=== PATIENT | male | born 1935 | race Caucasian/White ===

== ENCOUNTER 2019-06-10 07:33 | Emergency (ER) | payer BC, MEDICARE, OTHER ==
[~2019-06-10] VITALS: Ht 177.8 cm; Wt 75.0 kg
[2019-06-10] MEDS ORDERED: MELO15TA28 (07:42)
[2019-06-10] MEDS ORDERED: TRAM50TA2 (07:42)
[2019-06-10] MEDS ORDERED: LEVE1INJ5 (07:42)
[2019-06-10] MEDS ORDERED: OMEP-218 (07:42)
[2019-06-10] MEDS ORDERED: LOSA100T50 (07:42)
[2019-06-10] MEDS ORDERED: METF10004 (07:42)
[2019-06-10] MEDS ORDERED: PRAV20TA2 (07:42)
[2019-06-10] MEDS ORDERED: MORPHINE 2 MG/ML 1ML VIAL (J2270) As Ordered ONE (08:26)
[2019-06-10] MEDS ORDERED: ONDANSETRON 4MG/2ML VIAL (J2405) As Ordered ONE (08:26)
[2019-06-10 08:27] LABS: BASO % 0.5 % (0.0-1.0); EOS # 0.2 10^3/uL (0.0-0.5); HEMATOCRIT 34.9 % (42.0-52.0); HEMOGLOBIN 11.2 g/dl (13.5-17.5); LYMPH # 1.3 10^3/uL (1.5-5.0); LYMPH % 15.1 % (24.0-44.0); MEAN CORPUSCULAR HEMOGLOBIN 30.1 pg (27.0-33.0); MEAN CORPUSCULAR HGB CONC 32.1 g/dl (32.0-36.5); MEAN CORPUSCULAR VOLUME 93.8 fl (80.0-96.0); MONO # 0.4 10^3/uL (0.0-0.8); MONO % 4.9 % (0.0-5.0); NEUTROPHILS # 6.6 10^3/uL (1.5-8.5); NEUTROPHILS % 77.4 % (36.0-66.0); PLATELET COUNT, AUTOMATED 319 10^3/uL (150-450); RED BLOOD COUNT 3.72 10^6/uL (4.30-6.10); WHITE BLOOD COUNT 8.5 10^3/uL (4.0-10.0)
[2019-06-10] MEDS ORDERED: ONDANSETRON 4MG/2ML VIAL (J2405) IV ONE (08:30)
[2019-06-10] MEDS: MORPHINE 2 MG/ML 1ML VIAL (J2270) IV PRN ×2 (08:31→08:54)
[2019-06-10 08:38] LABS: INR 1.19; PROTHROMBIN TIME 14.8 SECONDS (11.8-14.0)
[2019-06-10 08:39] LABS: PARTIAL THROMBOPLASTIN TIME 30.2 SECONDS (25.0-38.4)
--- NOTE | 2019-06-10 08:40 | REP ---
Chest x-ray: Two views. Comparison study: March 01, 2007. Findings: The lungs are well inflated and clear. Pleural angles are sharp. Heart size is normal. There are degenerative changes in the thoracic spine and in the shoulders. Pulmonary vasculature is not increased. No infiltrate is seen. Impression: No active disease. Electronically Signed by Edmund Payne MD 06/10/2019 08:30 A
[2019-06-10] MEDS ORDERED: ISOVUE-370 76% 100ML VIAL (Q9967) As Ordered ONE (08:44)
[2019-06-10 08:46] LABS: BILIRUBIN,DIRECT 0.3 MG/DL (0.0-0.2); BILIRUBIN,TOTAL 0.7 MG/DL (0.2-1.0); TOTAL PROTEIN 7.4 GM/DL (6.4-8.2)
[2019-06-10 08:47] LABS: ALBUMIN 3.3 GM/DL (3.2-5.2)
--- NOTE | 2019-06-10 09:01 | REP ---
Lumbar spine series: Five views. History: Back pain with numbness bilateral legs. Findings: Lumbar vertebral body heights are preserved. There is ill defined radiolucency in the anterior margin of the L3 vertebral body on the lateral radiograph. This is of uncertain significance. Focal collapse versus a destructive lesion. Vertebral bodies are otherwise intact. There is degenerative disc disease throughout the lumbar spine. Osteoarthritic facet hypertrophy and sclerosis present bilaterally particularly along the right side of the lumbar spine. There is a levoconvex rotoscoliotic curve. No other bony destructive lesion is appreciated. There are clips in the central abdomen. No malalignment is seen. Impression: Scoliosis and degenerative spondylosis changes. Question bony destructive lesion in the anterior superior margin of the L3 vertebral body. Consider CT scanning or MRI scanning. Electronically Signed by Edmund Payne MD 06/10/2019 12:37 P
[2019-06-10] MEDS ORDERED: LIDOCAINE 2% 5ML JELLY UROJET TOP ONE (09:30)
--- NOTE | 2019-06-10 09:37 | REP ---
CT angiogram abdomen and pelvis with IV contrast: History: Hypertension, severe back pain, rule out dissection. CT contrast dose: 100 mL of intravenous Isovue [address] study is from March 22, 2007. CT contrast dose: 100 mL of intravenous Isovue 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 The lung bases are free of infiltrate. There is minimal linear fibrosis in the right lower lobe. No pleural effusion. There are granulomatous calcifications in the spleen. The heart is enlarged. There is a 15 mm nodule in the right adrenal gland which was only very slightly larger than on the 2007 study consistent with a small benign adrenal adenoma. No other adrenal lesion is seen. No abnormality is noted in the gallbladder. No pancreatic mass or free fluid is seen. The kidneys enhance symmetrically are morphologically intact. The visualized thoracic and abdominal aorta are normal in caliber, somewhat tortuous, and show atherosclerotic calcification. There is no evidence of aneurysm or dissection. Renal arteries, inferior mesenteric, superior mesenteric and celiac axes are patent. No acute vascular abnormality is appreciated. The common and external iliac arteries and internal iliac arteries are patent bilaterally. There is rather marked urinary bladder distension consistent with bladder outlet obstruction. The urinary bladder fills and bulges the pelvis up above the level of the umbilicus. This is not new but is more prominent than on the 2007 study. The prostate is markedly enlarged. This is also more prominent. There is a bladder diverticulum and there is some trabeculation of the bladder wall. No bladder mass lesion is visible. The appendix is surgically absent. Small and large bowel loops are unremarkable in the abdomen and pelvis. On bone window settings, there is a recent healing partial wedge compression fracture deformity at the L3 vertebral body. This is responsible for the radiographic findings on plain x-ray. There is a vacuum phenomenon indicating degenerative disc disease at the L2-3 disc level. There are Schmorl's nodes on both sides of the L2-3 disc and there is healing sclerosis. There is partial collapse of the right side of the superior endplate of L3 with approximately 40% M loss of vertebral body heights anteriorly and on the right side. There is a levoconvex curve. Axial and sagittal images at L2-3 demonstrate severe central canal stenosis at this level due to a combination of diffuse disc bulging, posterior osteophytic ridging, ligamentum flavum and facet hypertrophy and developmentally short pedicles. There is also severe central canal stenosis due to the same factors at L3-4 and L4-5. These changes are more pronounced than on the prior CT study. No other bony destructive lesion is seen. Impression: No acute vascular abnormality. There is bladder outlet obstruction with marked distension of the urinary bladder. This appears to be a chronic finding with marked prostate enlargement. There is a healing compression fracture deformity involving the superior endplate of L3 most prominent on the right side. This is responsible for the radiographic findings. There is severe degenerative central canal stenosis evident at L2-3, L3-4, and L4-5 in the lumbar spine. Electronically Signed by Edmund Payne MD 06/10/2019 12:40 P
[2019-06-10] MEDS ORDERED: MORPHINE 2 MG/ML 1ML VIAL (J2270) IV PRN (11:30)
[2019-06-10] MEDS ORDERED: NS 1,000 ML IV ONE (11:45)
--- NOTE | 2019-06-10 11:59 | REP ---
MRI lumbar spine without contrast: History: Back pain times 3 weeks. Progressive. New bilateral leg numbness. Comparison radiographs June 10, [address] images June 10, 2019. Technique: Sagittal and axial T1 and T2-weighted scans are acquired in the usual fashion with and without fat saturation. Sequences include spin echo, turbo spin-echo, and STIR imaging sequences. MRI findings: There is a mild levoconvex curvature in the lumbar spine. No extra vertebral abnormality is observed. Alignment is otherwise normal. There is abnormal signal intensity in the L2-3 disc characterized by low T1 and bright or high T2 signal intensity. There are one or two foci of low T1 low T2 signal intensity in the T2 hyperintense disc correlating with small vacuum phenomenon seen on CT in this location. The end plates on either side of the L2-3 disc are somewhat indistinct. There are Schmorl's nodes with abnormal signal intensity on both sides of the endplate. There is partial collapse of the L3 vertebral body as seen on the radiographs and the CT study. Considerable marrow edema is seen throughout much of the L3 and L2 vertebral bodies and the findings are compatible with acute diskitis. No paravertebral soft-tissue mass or fluid collection is seen. There is however a large left ventral epidural fluid collection extending back and cephalad from the disc margin. This produces considerable cauda equina compression. This epidural fluid collection measures 2.3 cm craniocaudal by 1.1 cm anterior to posterior by 1.5 cm right to left dimension. There is severe central canal stenosis at the level of the L3-4 disc and at L2 extending up to the level of the L2 pedicles. There is a central focal disc protrusion at L1-2 which extends caudally and cranially. There is mild cauda equina compression from this disc protrusion. At L3-4, there is severe central canal stenosis due to a combination of posterior disc bulging, discogenic osteophyte formation, facet hypertrophy, and ligamentum flavum hypertrophy. The CSF signal intensity is completely effaced from the thecal sac at L3-4. There is moderate right-sided foraminal narrowing and mild left-sided foraminal narrowing due to disc bulging and facet hypertrophy at the 3-4 level as well. At L4-5, there is severe central canal stenosis also noted due to these same factors although the canal narrowing is a little less prominent. Advanced osteoarthritic facet disease is present bilaterally along with ligamentum flavum hypertrophy. There is mild bilateral foraminal narrowing at L4-5, left more so than right. At L5-S1, there is facet hypertrophy bilaterally. No spinal stenosis or foraminal narrowing is seen. No disc protrusion. Impression: 1. Findings consistent with acute infectious diskitis at L2-3 with partial collapse of the L3 vertebral body and considerable reactive marrow change. There is evidence of an epidural fluid collection along the ventral margin of the cord just to the left of midline at L2 and at the L2-3 disc level producing considerable cauda equina compression. This is consistent with an epidural abscess. 2. There is also a moderate sized central focal disc protrusion at L1-2 compressing the thecal sac. This disc protrusion extends cranially and caudally as well. 3. There is severe degenerative multifactorial central canal stenosis at L3-4 and to a slightly lesser extent at L4-5. There is bilateral foraminal narrowing at these two levels. Post gadolinium enhanced MR imaging may provide additional information. Electronically Signed by Edmund Payne MD 06/10/2019 12:51 P
[2019-06-10 12:00] LABS: C REACTIVE PROTEIN QUANTITATIV 2.06 MG/DL (0.00-0.30)
[2019-06-10] MEDS ORDERED: PIPERACILLIN/TAZOBACTAM SOD 4.5 GM in D5W MINI-BAG PLUS 50 ML IV ONE (12:45)
[2019-06-10] MEDS ORDERED: VANCOMYCIN HCL 1,000 MG, VIAL MATE ADAPTER 1 EACH in D5W 250 ML IV ONE (12:45)
[2019-06-10 13:34] VITALS: BP 192/95
== END 2019-06-10 13:43 | disposition short-term general hospital (02) ==
LOC: M ED 07:33
DX: G06.2 Extradural and subdural abscess, unspecified (principal); G83.4 Cauda equina syndrome; M46.40 Discitis, unspecified, site unspecified; E11.9 Type 2 diabetes mellitus without complications; I10 Essential (primary) hypertension; E78.9 Disorder of lipoprotein metabolism, unspecified; Z79.899 Other long term (current) drug therapy; Z79.4 Long term (current) use of insulin; Z87.891 Personal history of nicotine dependence
CPT/HCPCS: 51701; 71046; 72110; 72148; 74174; 80047; 80076; 83690; 85025; 85610; 85652; 85730; 86140; 87040; 93041; 96374; 96375; 96376; 99285; J2270; J2405; J2543; J3370; Q9967

== ENCOUNTER → 2019-06-22 | Outpatient (REF) | payer MEDICARE ==
[~2019-06-22] MED LIST: LEVE1INJ5; LOSA100T50; MELO15TA28; METF10004; OMEP-218; PRAV20TA2; TRAM50TA2
[2019-06-22 11:54] LABS: BASO % 0.3 % (0.0-1.0); EOS # 0.1 10^3/uL (0.0-0.5); EOS % 0.7 % (0.0-3.0); HEMATOCRIT 24.4 % (42.0-52.0); LYMPH # 1.1 10^3/uL (1.5-5.0); LYMPH % 11.7 % (24.0-44.0); MEAN CORPUSCULAR HEMOGLOBIN 30.2 pg (27.0-33.0); MEAN CORPUSCULAR HGB CONC 32.8 g/dl (32.0-36.5); MEAN CORPUSCULAR VOLUME 92.1 fl (80.0-96.0); MONO # 0.5 10^3/uL (0.0-0.8); MONO % 5.1 % (0.0-5.0); NEUTROPHILS # 7.9 10^3/uL (1.5-8.5); NEUTROPHILS % 81.7 % (36.0-66.0); PLATELET COUNT, AUTOMATED 404 10^3/uL (150-450); RED BLOOD COUNT 2.65 10^6/uL (4.30-6.10); WHITE BLOOD COUNT 9.7 10^3/uL (4.0-10.0)
[2019-06-22 12:21] LABS: ALBUMIN 2.5 GM/DL (3.2-5.2); ALT/SGPT 20 U/L (12-78); BILIRUBIN,TOTAL 0.4 MG/DL (0.2-1.0); BLOOD UREA NITROGEN 14 MG/DL (7-18); C REACTIVE PROTEIN QUANTITATIV 6.73 MG/DL (0.00-0.30); CALCIUM LEVEL 8.7 MG/DL (8.8-10.2); CARBON DIOXIDE LEVEL 26 MEQ/L (21-32); CHLORIDE LEVEL 105 MEQ/L (98-107); GLOMERULAR FILTRATION RATE > 60.0 (>35); GLUCOSE, FASTING 122 MG/DL (70-100); POTASSIUM SERUM 4.6 MEQ/L (3.5-5.1); SODIUM LEVEL 138 MEQ/L (136-145); TOTAL PROTEIN 6.2 GM/DL (6.4-8.2)
[2019-06-22 12:23] LABS: ERYTHROCYTE SEDIMENTATION RATE 58 mm/hr (0-20)
== END ==
LOC: M LAB REF 11:33
PROVIDERS: ATTEND Internal Medicine Infectious Disease
DX: G06.2 Extradural and subdural abscess, unspecified (principal); M46.46 Discitis, unspecified, lumbar region; Z79.2 Long term (current) use of antibiotics

== ENCOUNTER → 2019-07-19 | Outpatient (REF) | payer MEDICARE | LOC: M LAB REF 16:18 | PROVIDERS: ATTEND Internal Medicine Infectious Disease | DX: G06.2 Extradural and subdural abscess, unspecified (principal); N18.9 Chronic kidney disease, unspecified; Z51.81 Encounter for therapeutic drug level monitoring; E11.22 Type 2 diabetes mellitus with diabetic chronic kidney disease; M46.46 Discitis, unspecified, lumbar region; Z79.2 Long term (current) use of antibiotics ==

== ENCOUNTER → 2019-07-21 | Outpatient (CLI) | payer MEDICARE ==
--- NOTE | 2019-07-21 10:16 | REP ---
MRI lumbar spine without and with IV contrast: History: Epidural abscess. Comparison study June 10, 2019. The patient has undergone laminectomy and operative therapy. Technique: Sagittal and axial T1 and T2-weighted scans are acquired in the usual fashion with and without fat saturation. Sequences include spin echo, turbo spin-echo, and STIR imaging sequences. 14 ml of intravenous ProHance is administered. MRI findings: Extensive signal intensity abnormality persists throughout the L2 and L3 vertebral body characterized by low T1 and high T2-weighted signal intensity with postcontrast enhancement throughout the L2 and L3 vertebral bodies. On the 06/1991 the signal intensity nonenhancing fluid is seen in the L2-3 intervertebral disc space and extending slightly to the left paravertebral region. There is some contrast enhancement around this left paravertebral disc bulging. The left ventral epidural collection is no longer visible. The spinous processes have been resected at the L2-L3 levels with laminectomy changes centrally in the dorsal extradural soft tissues about this level. There is an irregular dorsal extra spinal fluid collection with enhancing margins at the level of the laminectomy site. There is still considerable central canal stenosis at the L2-3 disc level due to some left posterior retropulsion and left ventral enhancing epidural thickening along with residual facet hypertrophy at the L2-3 disc level. Extending upward from this level, there is enhancing dural thickening along the left ventral margin of the canal where the prior study showed the epidural abscess collection. This area measures 16 x 8 mm in right to left by anteroposterior span. It extends from the mid L3 through the top endplate of L2, 46 mm craniocaudal. This enhances homogeneously on postcontrast images implying dural thickening rather than a epidural collection although this is difficult to state with confidence. It is low in T2 signal and intermediate in T1 signal intensity. Postcontrast images demonstrate paravertebral enhancing granulation tissue about the L2 and L3 vertebral bodies and in the L2-3 a neural foramina bilaterally. At L1-2, there is no high-grade central canal stenosis. At the L3-4 there is an moderate central canal stenosis due to diffuse disc bulging and developmentally short pedicles and ligamentum flavum and facet hypertrophy at the bottom edge of the laminectomy site. At L4-5, there is severe central canal stenosis due to diffuse disc bulging, facet hypertrophy and ligamentum flavum hypertrophy. This is unchanged. At the L5-S1 level there is no change from the prior study with facet hypertrophy and minimal disc bulging. 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 A fairly large area of epidural thickening and enhancement persists were the epidural abscess was. Significant thecal sac compression is seen at this level. In addition there is severe central canal stenosis at L4-5 on a degenerative and developmental basis. Electronically Signed by Edmund Payne MD 07/21/2019 06:34 P
== END ==
LOC: M PLARAD 07:30
PROVIDERS: ATTEND Physician Assistant
DX: M51.26 Other intervertebral disc displacement, lumbar region (principal); M48.061 Spinal stenosis, lumbar region without neurogenic claudication; M46.96 Unspecified inflammatory spondylopathy, lumbar region; G06.2 Extradural and subdural abscess, unspecified

== ENCOUNTER → 2019-08-24 | Outpatient (REF) | payer MEDICARE ==
[~2019-08-24] MED LIST changes: +FLOM0.4C39 PO; +IRON325T2 PO
[2019-08-24 12:45] LABS: HEMATOCRIT 32.3 % (42.0-52.0); HEMOGLOBIN 10.3 g/dl (13.5-17.5); MEAN CORPUSCULAR HEMOGLOBIN 30.2 pg (27.0-33.0); MEAN CORPUSCULAR HGB CONC 31.9 g/dl (32.0-36.5); MEAN CORPUSCULAR VOLUME 94.7 fl (80.0-96.0); PLATELET COUNT, AUTOMATED 240 10^3/uL (150-450); RED BLOOD COUNT 3.41 10^6/uL (4.30-6.10); WHITE BLOOD COUNT 7.4 10^3/uL (4.0-10.0)
[2019-08-24 12:53] LABS: ALBUMIN 3.3 GM/DL (3.2-5.2); ALT/SGPT 18 U/L (12-78); BILIRUBIN,TOTAL 0.3 MG/DL (0.2-1.0); BLOOD UREA NITROGEN 26 MG/DL (7-18); CALCIUM LEVEL 8.7 MG/DL (8.8-10.2); CARBON DIOXIDE LEVEL 27 MEQ/L (21-32); CHLORIDE LEVEL 108 MEQ/L (98-107); CREATININE FOR GFR 1.17 MG/DL (0.70-1.30); FERRITIN 53 NG/ML (26-388); GLOMERULAR FILTRATION RATE > 60.0 (>35); GLUCOSE, FASTING 161 MG/DL (70-100); IRON (FE) 29 UG/DL (65-175); PERCENT SATURATION 10.8 % (19.7-50.0); POTASSIUM SERUM 5.4 MEQ/L (3.5-5.1); SODIUM LEVEL 139 MEQ/L (136-145); TOTAL IRON BINDING CAPACITY 268 UG/DL (250-450); TOTAL PROTEIN 6.9 GM/DL (6.4-8.2)
== END ==
LOC: M LAB REF 11:53
PROVIDERS: ATTEND Family Medicine
DX: D64.9 Anemia, unspecified (principal); I10 Essential (primary) hypertension

== ENCOUNTER 2019-08-25 06:56 | Emergency (ER) | payer MEDICARE ==
[~2019-08-25] VITALS: Ht 177.8 cm; Wt 72.1 kg
[~2019-08-25 06:56] MED LIST changes: -FLOM0.4C39 PO; -IRON325T2 PO
[2019-08-25] MEDS ORDERED: FLOM0.4C39 PO (07:03)
[2019-08-25] MEDS ORDERED: IRON325T2 PO (07:03)
[2019-08-25] MEDS ORDERED: LIDOCAINE 2% 5ML JELLY UROJET TOP ONE (07:45)
[2019-08-25 09:44] VITALS: BP 153/70
== END 2019-08-25 09:54 | disposition home or self-care (01) ==
LOC: M ED 06:56
DX: T83.091A Other mechanical complication of indwelling urethral catheter, initial encounter (principal); E11.9 Type 2 diabetes mellitus without complications; I10 Essential (primary) hypertension; E78.5 Hyperlipidemia, unspecified; K21.9 Gastro-esophageal reflux disease without esophagitis; Z87.891 Personal history of nicotine dependence; Z79.4 Long term (current) use of insulin; Z79.899 Other long term (current) drug therapy

== ENCOUNTER 2019-10-08 02:25 | Emergency (ER) | payer MEDICARE ==
[~2019-10-08] VITALS: Ht 177.8 cm; Wt 75.1 kg
[~2019-10-08 02:25] MED LIST changes: +FLOM0.4C39 PO; +IRON325T2 PO
[2019-10-08 04:12] VITALS: BP 140/70
== END 2019-10-08 04:15 | disposition home or self-care (01) ==
LOC: M ED 02:25
DX: T83.098A Other mechanical complication of other urinary catheter, initial encounter (principal); E11.9 Type 2 diabetes mellitus without complications; I10 Essential (primary) hypertension; E78.5 Hyperlipidemia, unspecified; Z79.84 Long term (current) use of oral hypoglycemic drugs; Z79.899 Other long term (current) drug therapy

== ENCOUNTER 2019-10-17 06:17 | Emergency (ER) | payer MEDICARE ==
[~2019-10-17] VITALS: Ht 177.8 cm; Wt 77.7 kg
[2019-10-17] MEDS ORDERED: KEFL500C17 PO ×2 (07:36→07:40)
[2019-10-17 07:53] VITALS: BP 180/70
== END 2019-10-17 07:53 | disposition home or self-care (01) ==
LOC: M ED 06:17
DX: Z46.6 Encounter for fitting and adjustment of urinary device (principal); T83.098A Other mechanical complication of other urinary catheter, initial encounter; N30.90 Cystitis, unspecified without hematuria; E11.9 Type 2 diabetes mellitus without complications; I10 Essential (primary) hypertension; E78.5 Hyperlipidemia, unspecified; K21.9 Gastro-esophageal reflux disease without esophagitis; Z79.4 Long term (current) use of insulin; Z79.84 Long term (current) use of oral hypoglycemic drugs; Z79.899 Other long term (current) drug therapy

== ENCOUNTER 2019-11-21 09:47 | Inpatient (IN) | payer MEDICARE ==
[~2019-11-21] VITALS: Ht 177.8 cm; Wt 76.2 kg
[~2019-11-21 09:47] MED LIST changes: +KEFL500C17 PO; -LEVE1INJ5; +LEVE1INJ5 SC; -LOSA100T50; +LOSA100T50 PO; -METF10004; +METF10004 PO; -OMEP-218; +OMEP-218 PO; -PRAV20TA2; +PRAV20TA2 PO
[2019-11-21] MEDS ORDERED: ISOVUE-370 76% 100ML VIAL As Ordered ONE (10:39)
--- NOTE | 2019-11-21 11:04 | REP ---
Oral chest x-ray: Single view. History: CVA. Comparison chest x-ray: June 10, 2019. Findings: Monitoring electrodes overlie the chest. Cardiomegaly is observed. Pulmonary vasculature is not increased. Pleural angles are sharp. No infiltrate is seen. Impression: Cardiomegaly. Otherwise no active disease. Electronically Signed by Edmund Payne MD 11/21/2019 10:55 A
[2019-11-21 11:10] LABS: BASO % 0.6 % (0.0-1.0); EOS # 0.3 10^3/uL (0.0-0.5); EOS % 3.7 % (0.0-3.0); HEMATOCRIT 30.8 % (42.0-52.0); HEMOGLOBIN 10.1 g/dl (13.5-17.5); LYMPH # 1.4 10^3/uL (1.5-5.0); LYMPH % 20.3 % (24.0-44.0); MEAN CORPUSCULAR HEMOGLOBIN 30.2 pg (27.0-33.0); MEAN CORPUSCULAR HGB CONC 32.8 g/dl (32.0-36.5); MEAN CORPUSCULAR VOLUME 92.2 fl (80.0-96.0); MONO # 0.4 10^3/uL (0.0-0.8); MONO % 4.9 % (0.0-5.0); NEUTROPHILS % 70.1 % (36.0-66.0); PLATELET COUNT, AUTOMATED 261 10^3/uL (150-450); RED BLOOD COUNT 3.34 10^6/uL (4.30-6.10); WHITE BLOOD COUNT 7.1 10^3/uL (4.0-10.0)
[2019-11-21 11:22] LABS: INR 1.09; PARTIAL THROMBOPLASTIN TIME 27.1 SECONDS (25.0-38.4); PROTHROMBIN TIME 13.8 SECONDS (11.8-14.0)
[2019-11-21 11:34] LABS: CK-MB VALUE MASS 3.3 NG/ML (<3.6); MB/CK RELATIVE INDEX 2.52 (< OR =4); TROPONIN I 0.04 NG/ML (< 0.10)
--- NOTE | 2019-11-21 12:44 | REP ---
CT BRAIN WITHOUT CONTRAST: HISTORY: CVA. No comparison study. CT FINDINGS: There is heavy vascular calcification in the distal internal carotid arteries bilaterally. The bony calvarium is intact. Visualized paranasal sinuses are clear. No intraorbital abnormality is appreciated. There is mild generalized volume loss. There is no evidence of intracranial hemorrhage. Saba/white differentiation pattern is normal above and below the tentorium. No acute infarction is seen. No mass, acute infarction or midline shift is seen. There are mild small vessel changes. IMPRESSION: No evidence of acute infarct, hemorrhage, mass or midline shift. Electronically Signed by Edmund Payne MD 11/21/2019 05:58 P
[2019-11-21] MEDS ORDERED: ATORVASTATIN 20 MG TAB PO ONE (13:30)
[2019-11-21] MEDS ORDERED: ASPIRIN 325 MG TAB PO ONE (13:30)
[2019-11-21] MEDS ORDERED: GLUCOSE 4GM CHEW TABLET PO PRN (13:45)
[2019-11-21] MEDS ORDERED: DEXTROSE 50% 50 ML SYRINGE IV PRN (13:45)
[2019-11-21] MEDS ORDERED: GLUCAGON INJ 1MG VIAL SC PRN (13:45)
--- NOTE | 2019-11-21 13:47 | REP ---
CT ANGIOGRAPHY OF THE CAROTID ARTERIES WITH IV CONTRAST: HISTORY: CVA. CT CONTRAST DOSE: 100 mL of intravenous Isovue [address] FINDINGS: There is mild vascular calcification in the aortic arch. There is no evidence of an aneurysm or dissection. Great vessel origins are unremarkable. Mild vascular calcification is seen in the proximal left subclavian and in the innominate arteries. The common carotid arteries are unremarkable bilaterally. There is moderate calcific plaquing at the bifurcations of the carotid arteries bilaterally. There is approximately 50% narrowing of the distal common carotid artery on the left due to calcific plaquing. The proximal ICA shows less than 50% narrowing on the left. On the right, there is calcific plaquing at the origin of the ICA and there is approximately 75% narrowing of the proximal ICA. Cervical internal carotid artery segments are patent bilaterally. Vertebral arteries are patent bilaterally and right is slightly smaller than the left. IMPRESSION: 75% narrowing in the ICA origin on the right. Less than 50% narrowing of the distal common carotid artery and proximal ICA on the left. Otherwise negative. Electronically Signed by Edmund Payne MD 11/21/2019 05:58 P
[2019-11-21] MEDS: amLODIPine 5 MG TAB PO SCH ×2 (13:54→20:32)
--- NOTE | 2019-11-21 13:57 | REP ---
CT ANGIOGRAPHY OF THE BRAIN WITH IV CONTRAST: HISTORY: Cerebrovascular accident. CT CONTRAST DOSE: 100 mL of intravenous Isovue 370. CT ANGIOGRAPHIC FINDINGS: The distal vertebral arteries are patent bilaterally. Basilar artery is mildly tortuous but widely patent. The superior cerebellar artery is normal and symmetric. The left posterior cerebral artery takes a persistent origin. The posterior cerebral arteries are patent bilaterally. The distal internal carotid arteries are heavily calcified at the level of the carotid siphon bilaterally. There is evidence of atherosclerotic irregularity and narrowing bilaterally. The anterior and middle cerebral arteries are patent. No vessel cutoff is seen. Dural sinuses are patent and unremarkable. IMPRESSION: Persistent origin left posterior cerebral artery. Fairly heavy vascular calcification and atherosclerotic narrowing in the distal internal carotid arteries bilaterally. No arterial occlusion seen. No evidence of chun aneurysm or arteriovenous malformation. Electronically Signed by Edmund Payne MD 11/21/2019 05:58 P
[2019-11-21] MEDS ORDERED: ENOXAPARIN 40MG/0.4ML SYRINGE (J1650 PER 10MG) SC SCH (14:00)
[2019-11-21] MEDS: LABETALOL 100MG/20ML VIAL IV SCH ×2 (15:10→20:33)
[2019-11-21 16:17] VITALS: BP 184/85
--- NOTE | 2019-11-21 16:32 | REP ---
MRI BRAIN WITHOUT CONTRAST: HISTORY: Right wrist drop. Comparison CT study from earlier this date. TECHNIQUE: Axial and sagittal imaging planes are utilized for T1- and T2-weighted scans. Sequences include spin-echo, fast spin echo, FLAIR, and diffusion weighted sequences. MRI FINDINGS: No bony calvarial lesion is seen. There is minimal mucosal thickening in the right maxillary sinus. No intraorbital abnormality is seen. There is no evidence of intracranial hemorrhage. Diffusion weighted scans demonstrates multiple scattered punctate foci of restricted diffusion consistent with acute ischemia in the left temporal lobe and left parietal lobe. No other areas of restricted diffusion are seen. No extra-axial fluid collection, mass, or midline shift is seen. There are some periventricular white matter small vessel changes. Mild generalized volume loss is present. IMPRESSION: Multiple small foci of restricted diffusion indicating acute ischemia in the left temporal and left parietal lobes. No hemorrhage seen. Electronically Signed by Edmund Payne MD 11/21/2019 06:01 P
[2019-11-21] MEDS ORDERED: SLF 3 ML SYR IV PRN (16:45)
[2019-11-21] MEDS: HumaLOG INSULIN (NovoLOG) PER UNIT SC SCH ×2 (17:50→20:32)
--- NOTE | 2019-11-21 18:47 | ECGEPIP ---
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
[2019-11-21 20:00] VITALS: BP 173/81
[2019-11-21] MEDS: APIXABAN 2.5 MG TAB (ELIQUIS) PO SCH (20:32)
[2019-11-21] MEDS: FERROUS SULFATE 325MG TAB PO SCH (20:32)
[2019-11-21] MEDS: LEVEMIR (INSULIN DETEMIR) 1 UNITS/0.01ML SC SCH (20:33)
[2019-11-21] MEDS: SLF 3 ML SYR IV SCH (22:43)
[2019-11-22] VITALS (7 sets, daily range): BP systolic 161–188; BP diastolic 69–86
[2019-11-22] MEDS: LABETALOL 100MG/20ML VIAL IV SCH ×2 (03:58→09:00)
[2019-11-22 04:33] LABS: HEMATOCRIT 30.1 % (42.0-52.0); HEMOGLOBIN 9.9 g/dl (13.5-17.5); MEAN CORPUSCULAR HEMOGLOBIN 30.5 pg (27.0-33.0); MEAN CORPUSCULAR HGB CONC 32.9 g/dl (32.0-36.5); MEAN CORPUSCULAR VOLUME 92.6 fl (80.0-96.0); PLATELET COUNT, AUTOMATED 241 10^3/uL (150-450); RED BLOOD COUNT 3.25 10^6/uL (4.30-6.10); WHITE BLOOD COUNT 7.7 10^3/uL (4.0-10.0)
[2019-11-22 05:04] LABS: ALT/SGPT 19 U/L (12-78); BILIRUBIN,DIRECT 0.2 MG/DL (0.0-0.2); BILIRUBIN,TOTAL 0.5 MG/DL (0.2-1.0); BLOOD UREA NITROGEN 21 MG/DL (7-18); CALCIUM LEVEL 8.3 MG/DL (8.8-10.2); CARBON DIOXIDE LEVEL 26 MEQ/L (21-32); CHLORIDE LEVEL 109 MEQ/L (98-107); CHOLESTEROL LEVEL 125 MG/DL (<200); CHOLESTEROL RISK RATIO 3.787 (<5); CREATININE FOR GFR 1.11 MG/DL (0.70-1.30); GLOMERULAR FILTRATION RATE > 60.0 (>35); GLUCOSE, FASTING 100 MG/DL (70-100); HDL CHOLESTEROL 33 MG/DL (>40); LDL CHOLESTEROL 75 MG/DL (<100); NON-HDL-C 92 MG/DL; SODIUM LEVEL 142 MEQ/L (136-145); TOTAL PROTEIN 6.2 GM/DL (6.4-8.2); TRIGLYCERIDES LEVEL 84 MG/DL (<150)
[2019-11-22] MEDS: SLF 3 ML SYR IV SCH ×3 (05:35→20:53)
[2019-11-22] MEDS: HumaLOG INSULIN (NovoLOG) PER UNIT SC SCH ×4 (07:30→20:52)
[2019-11-22] MEDS ORDERED: ASPIRIN 81 MG CHEW TABLET PO SCH (09:00)
[2019-11-22] MEDS: TAMSULOSIN 0.4 MG CAP PO SCH (10:01)
[2019-11-22] MEDS: LOSARTAN 50MG TABLET PO SCH (10:01)
[2019-11-22] MEDS: OMEPRAZOLE 20 MG CAP PO SCH (10:01)
[2019-11-22] MEDS: amLODIPine 5 MG TAB PO SCH (10:02)
[2019-11-22] MEDS: APIXABAN 2.5 MG TAB (ELIQUIS) PO SCH ×2 (10:02→20:52)
--- NOTE | 2019-11-22 10:15 | HPE ---
DATE OF ADMISSION: 11/21/2019 CHIEF COMPLAINT: Right hand weakness. HISTORY OF PRESENT ILLNESS: This is an 84-year-old male with history of epidural abscess, type 2 diabetes, hyperlipidemia, hypertension, sciatica, and radiculopathy who presents to the emergency room with acute onset of right wrist drop. The patient had surgery due to an epidural abscess in May into June and since being home has been sleeping downstairs on the couch. When he awoke this morning at 5:30 a.m. and the hand could not move and was "like a piece of meat", the patient thought that he may have slept on the wrong side and tried to straighten it out. He was watching movies last night from 11:00 p.m. to about 4:00 a.m. and was normal and went to sleep and woke up around 5:30 this morning. The patient thought that his hand fell asleep. He started massaging it and straightening it out and he went back to sleep. He then called out to his to tell her around 9:30 that it was not getting any better. The said, "You look all right". He otherwise denied any tingling or numbing sensation. He told his , "I think I had a stroke". The said you may have a pinched nerve. They both decided to call Dr. Fisher's office around 9:30 who then prompted him to come to the emergency room (ER) for further evaluation. The patient has been using a crutch to ambulate up and down the stairs at home and uses a cane on his good side which is the left side. He was able to get into his car with using his one crutch without any help or gait disturbance. The did not notice any facial asymmetry. She said that his speech was fluent without any difficulty understanding or any word salad. On arrival, the patient had a CT of the head which was normal. No hemorrhage or acute CVA. Presenting blood pressure was 224/100 with no complaints of headache, changes in vision or gait abnormality. CTA of the neck shows 75% narrowing in the ICA on the right with less than 50% of the distal common carotid artery and proximal ICA on the left, otherwise negative. MRI of the brain as recommended by Dr. Bustamante, neurologist sludge filtration attendant, shows a multiple small foci of restricted diffusion indicating acute ischemia in the left temporal and left parietal lobe without any hemorrhage. The patient's blood pressure improved after a dose of Norvasc and IV labetalol to 184, which is sufficient decrease of 15% from presenting blood pressure. The patient was subsequently admitted for nonhemorrhagic acute left temporal parietal CVA. PAST MEDICAL HISTORY: 1. 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 2. Hypertension. 3. Diabetes. 4. Sciatica. 5. Radiculopathy. 6. Hyperlipidemia. ALLERGIES: No known drug allergies. PAST SURGICAL HISTORY: 1. Lumbar diskectomy. 2. Evacuation of an epidural abscess at [facility]. 3. Right knee surgery. 4. Appendectomy. 5. Two cataract surgeries. HOME MEDICATIONS: - metformin 1 gram twice a day - Prevacid 20 daily - Levemir 8 units at bedtime - ferrous sulfate 325 at bedtime - losartan 100 daily - omeprazole 20 daily - Flomax 0.4 daily SOCIAL HISTORY: The patient denies cigarette or alcohol use. 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 He currently lives with his , a dog, a cat, and a bird. FAMILY HISTORY: Mother at age 67 with CAD and VA; father age 68, was a smoker with COPD. Patient had no siblings. He was an only child. REVIEW OF SYSTEMS: Her HPI, 12 point system otherwise negative. PHYSICAL EXAMINATION: Presenting blood pressure 224/100. Respiratory rate 18. Pulse 64. Temperature 98.2. 99% on room air. Generally, the patient has no facial asymmetry. Able to speak in full sentences. The patient has pupils that are reactive. Speech is fluent. No conversational dyspnea. No jugular venous distention (JVD). No thyromegaly or cervical lymphadenopathy. Moist mucous membranes. Lungs are clear to auscultation. No wheezing, rales or rhonchi. Heart: S1, S2. Irregularly irregular. Abdomen: Soft. Nontender. Nondistended. Positive bowel sounds. Extremities: No cyanosis or clubbing. The patient has a Burt catheter with a leg bag on the right. Post surgical changes in the right knee. Well healed scars. Neurologically, patient has no facial asymmetry. Speech is fluent. Slight pronator drift. On the right, he has dysmetria on ythivd-ky-alxy testing. On the right, motor function right wrist and fingers are 3/5, positive Babinski in the lower extremity. Motor strength of left upper and lower extremity is 5/5. Gait was not tested. LABORATORY DATA: White count 7.1, hemoglobin 10, hematocrit 30, and platelet count 261 with 70% neutrophils. Troponin 0.4. MB fraction 3.3. Total CK 131. INR 1.09. PTT is 27. Sodium 140, potassium 4.5, chloride 105, bicarbonate 22, BUN 25, creatinine 1.2, glucose 125. MRI of the brain with acute left temporal parietal CVA, no hemorrhage seen. CTA of the neck with 75% narrowing in the ICA origin on the right, less than 50% distal common carotid artery and proximal ICA on the left, otherwise negative. CT of the head with no evidence of acute infarct, hemorrhage, mass or midline shift. Chest x-ray 11/21/2019 with cardiomegaly, otherwise no active disease. CT angio of the brain with persistent origin left posterior cerebral artery. Heavy vascular calcification and atherosclerotic narrowing in the distal internal carotid arteries bilaterally. No evidence of chun aneurysm. No arterial occlusion. No arteriovenous malformation. ASSESSMENT AND PLAN: This is an 84-year-old male who presented to the emergency room around 10:00 a.m. with NIH score of 2 with complaints of right sided wrist drop that was noted around 5:30 to 6:00 a.m. this morning. The patient was found to have an acute left temporal parietal CVA and electrocardiogram showed atrial flutter, ventricular rate of 63, with left axis deviation, right bundle branch block. IMPRESSION: 1. Acute left parietal and temporal lobe CVA with right wrist drop. The patient has a new onset of atrial flutter on telemetry. He has been given Eliquis renally dosed twice a day, 2.5 mg. The patient is currently rate controlled. Will permit for permissive hypertension due to presenting blood pressure of 224. The patient's blood pressure should be around 180 to 190. Therefore, labetalol and Norvasc will be held for systolic pressure less than 180. After 24 hours, the patient's blood pressure might be more aggressively decreased to about 120 to 130. Obtain echocardiogram, 2-D echo. Telemetry monitoring. Continue on Lipitor. Apixaban. Check lipid panel in the morning. Control blood pressure over the next 24-48 hours. Deep vein thrombosis (DVT) prophylaxis with compression stockings. Lovenox has been discontinued due to starting Eliquis. 2. Hypertensive urgency with acute CVA. The patient's blood pressure will be decreased by 15%. Presenting systolic pressure of 224 with goal blood pressure about 180 to 190 over the next 24 hours until 10:00 a.m. tomorrow. Then will decrease it to normal over the next 48 hours. 3. Diabetes. The patient is continued on insulin sliding scale, consistent carbohydrate diet and finger sticks before meals and at bedtime. 4. History of epidural abscess and laminectomy. 5. Iron deficiency anemia. No signs of active bleeding. No red blood cell transfusion required. Monitor for symptoms. Check hemoccult stool if patient becomes anemic. 6. Disposition. The patient is to have acute rehabilitation unit (ARU) screen pending report of echo. The patient may be transferred to ARU at any time or discharge home with home physical therapy. 7. Carotid artery disease. Per Dr. Bustamante. Patient's symptoms are on the other side and does not need any emergent referral. Patient may be referred as outpatient to vascular surgery. 8.New onset Atrial Flutter. rate controlled. started on low dose eliquis. most likely cause of pt's new CVA. ASA discontinued due to increased risk of bleeding. MTDD
[2019-11-22] MEDS ORDERED: ELIQ2.5T PO (14:21)
[2019-11-22] MEDS ORDERED: ATOR1TAB21 PO (14:21)
[2019-11-22] MEDS ORDERED: AMLO10TA5 PO (14:21)
[2019-11-22] MEDS ORDERED: amLODIPine 5 MG TAB PO ONE (15:00)
--- NOTE | 2019-11-22 15:42 | IPNPDOC ---
Date Seen The patient was seen on 11/22/19. Progress Note SUBJECTIVE: pt has no new neurological deficits. He says that the right hand has not worsened overnight. Tele: A Flutter rate controlled. pt started on eliquis renally dosed, and despite sbp 170-180mmHg, denies h/a, changes in vision, or chest tightness, sob. OBJECTIVE PHYSICAL EXAMINATION: VITALS: Generally: no facial asymmetry. Able to speak in full sentences. NO expressive or receptive aphasia. gregarious and appropriate. The patient has pupils that are reactive. Speech is fluent. No conversational dyspnea. No jugular venous distention (JVD). No thyromegaly or cervical lymphadenopathy. Moist mucous membranes. Lungs are clear to auscultation. No wheezing, rales or rhonchi. Heart: S1, S2. Irregularly irregular. Abdomen: Soft. Nontender. Nondistended. Positive bowel sounds. Extremities: No cyanosis or clubbing. The patient has a Burt catheter with a leg bag on the right. Post surgical changes in the right knee. Well healed scars. Neurologically, patient has no facial asymmetry. Speech is fluent. Slight pronator drift. On the right, he has dysmetria on cxsdoc-jt-rvic testing. On the right, motor function right wrist and fingers are 3/5, positive Babinski in the lower extremity. Motor strength of left upper and lower extremity is 5/5. Gait was not tested. LABORATORY DATA: pls see below IMAGING STUDIES: MRI of the brain with acute left temporal parietal CVA, no hemorrhage seen. CTA of the neck with 75% narrowing in the ICA origin on the right, less than 50% distal common carotid artery and proximal ICA on the left, otherwise negative. CT of the head with no evidence of acute infarct, hemorrhage, mass or midline shift. Chest x-ray 11/21/2019 with cardiomegaly, otherwise no active disease. CT angio of the brain with persistent origin left posterior cerebral artery. Heavy vascular calcification and atherosclerotic narrowing in the dis medhat internal carotid arteries bilaterally. No evidence of chun aneurysm. No arterial occlusion. No arteriovenous malformation. ASSESSMENT AND PLAN: This is an 84-year-old male who presented to the emergency room around 10:00 a.m. with NIH score of 2 with complaints of right sided wrist drop that was noted around 5:30 to 6:00 a.m. this morning. The patient was found to have an acute left temporal parietal CVA and electrocardiogram showed atrial flutter, ventricular rate of 63, with left axis deviation, right bundle branch block. Acute left parietal and temporal lobe CVA with right wrist drop. The patient has a new onset of atrial flutter on telemetry. He has been given Eliquis renally dosed twice a day, 2.5 mg. The patient is currently rate controlled. Will permit for permissive hypertension due to presenting blood pressure of 224. The patient's blood pressure was kept at 180 to 190mmHg for the first 24hrs. Pt's lisinopril has been restarted. heart rate ranges in 60's, and beta blockade or calcium blockers to be judiciously utilized. Hypertensive urgency with acute CVA. after 24hrs, pt's blood pressure can be decreased to normal over the next 48hrs. resumed on lisinopril. Carotid artery disease. Per Dr. Bustamante. Patient's symptoms are on the other side and does not need any emergent referral. Patient may be referred as outpatient to vascular surgery. New onset Atrial Flutter. rate controlled. started on low dose eliquis. most likely cause of pt's new CVA. ASA discontinued due to increased risk of bleeding. Diabetes. The patient is continued on insulin sliding scale, consistent carbohydrate diet and finger sticks before meals and at bedtime. History of epidural abscess and laminectomy. Iron deficiency anemia. No signs of active bleeding. No red blood cell transfusion required. Monitor for symptoms. Check hemoccult stool if patient becomes anemic. Disposition. awaiting echo report and slow titration of bp meds to achieve goal bp . dc in am if improved. VS, I&O, 24H, [place] Vital Signs/I&O Vital Signs Date Time Temp Pulse Resp B/P (MAP) Pulse Ox O2 Delivery O2 Flow Rate FiO2 11/22/19 12:00 98.2 65 19 165/69 (101) 97 Room Air I&O- Last 24 Hours up to 6 AM 11/22/19 06:00 Intake Total 360 ml Output Total 1000 ml Balance -640 ml Laboratory Data 24H LABS Laboratory Tests 2 11/21/19 17:07: Bedside Glucose (Misc Panel) 166H 11/21/19 20:25: Bedside Glucose (Misc Panel) 141H 11/22/19 03:44: Nucleated Red Blood Cells % (auto) 0.0, Anion Gap 7L, Glomerular Filtration Rate > 60.0, Calcium Level 8.3L, Total Bilirubin 0.5, Direct Bilirubin 0.2, Aspartate Amino Transf (AST/SGOT) 21, Alanine Aminotransferase (ALT/SGPT) 19, Alkaline P hosphatase 122H, Total Protein 6.2L, Albumin 3.0L, Albumin/Globulin Ratio 0.9, Triglycerides Level 84, Total Cholesterol 125, LDL Cholesterol 75, Non-HDL Cholesterol (LDL + VLDL) 92, Total HDL Cholesterol 33L, Cholesterol/HDL Ratio 3.787 11/22/19 11:38: Bedside Glucose (Misc Panel) 181H CBC/BMP Laboratory Tests 11/22/19 03:44 LORENA CARLIN MD November 22, 2019 15:42
[2019-11-22] MEDS: FERROUS SULFATE 325MG TAB PO SCH (20:52)
[2019-11-22] MEDS: LEVEMIR (INSULIN DETEMIR) 1 UNITS/0.01ML SC SCH (20:53)
[2019-11-22] MEDS ORDERED: ATORVASTATIN 20 MG TAB PO SCH (21:00)
[2019-11-23 02:00] VITALS: BP 160/70
[2019-11-23] MEDS: SLF 3 ML SYR IV SCH (05:01)
[2019-11-23 06:00] VITALS: BP 155/70
[2019-11-23 08:07] LABS: HEMATOCRIT 31.6 % (42.0-52.0); HEMOGLOBIN 10.6 g/dl (13.5-17.5); MEAN CORPUSCULAR HEMOGLOBIN 30.8 pg (27.0-33.0); MEAN CORPUSCULAR HGB CONC 33.5 g/dl (32.0-36.5); MEAN CORPUSCULAR VOLUME 91.9 fl (80.0-96.0); PLATELET COUNT, AUTOMATED 282 10^3/uL (150-450); RED BLOOD COUNT 3.44 10^6/uL (4.30-6.10); WHITE BLOOD COUNT 8.2 10^3/uL (4.0-10.0)
[2019-11-23] MEDS ORDERED: POTASSIUM CHLORIDE 10 MEQ SR TABLET PO ONE (08:30)
[2019-11-23] MEDS ORDERED: amLODIPine 10 MG TAB PO SCH (09:00)
[2019-11-23 09:12] LABS: CALCIUM LEVEL 8.8 MG/DL (8.8-10.2); CK-MB VALUE MASS 2.4 NG/ML (<3.6); CREATININE FOR GFR 1.36 MG/DL (0.70-1.30); GLOMERULAR FILTRATION RATE 53.3 (>35); MAGNESIUM LEVEL 1.5 MG/DL (1.8-2.4); MB/CK RELATIVE INDEX 2.03 (< OR =4); POTASSIUM SERUM 4.5 MEQ/L (3.5-5.1); TROPONIN I 0.04 NG/ML (< 0.10)
[2019-11-23] MEDS: HumaLOG INSULIN (NovoLOG) PER UNIT SC SCH (09:22)
[2019-11-23 09:23] VITALS: BP 160/80
[2019-11-23] MEDS: OMEPRAZOLE 20 MG CAP PO SCH (09:23)
[2019-11-23] MEDS: TAMSULOSIN 0.4 MG CAP PO SCH (09:23)
[2019-11-23] MEDS: APIXABAN 2.5 MG TAB (ELIQUIS) PO SCH (09:23)
[2019-11-23] MEDS: LOSARTAN 50MG TABLET PO SCH (09:23)
[2019-11-23] MEDS ORDERED: MAG SULF 1GM/100ML (MAG RUN) 1 GM in IV 1 EA IV ONE (09:30)
[2019-11-23 10:00] VITALS: BP 148/72
--- NOTE | 2019-11-23 12:07 | ECHO ---
DATE OF STUDY: 11/22/2019 REFERRING PHYSICIAN: Dr. Veronika Chaney INDICATION: Acute stroke. HEIGHT: 178 cm WEIGHT: 79 kg 2-D MEASUREMENTS: Aortic root: 3.4 cm Left atrium: 4.4 cm Ventricular septum: 1.22-1.90 cm Posterior wall: 1.16 cm Left ventricle diastole: 4.6 cm Aortic annulus: 2.4 cm Inferior vena cava: 2.0 cm DOPPLER MEASUREMENTS: No aortic stenosis. No aortic regurgitation. Aortic valve velocity: 125 cm/sec LVOT velocity: 96.6 cm/sec LVOT VTI: 18.7 cm Mild mitral regurgitation. Mitral E velocity: 112 cm/sec Mitral A velocity: 71.1 cm/sec Mitral deceleration time: 151 ms Mild tricuspid regurgitation. Estimated right ventricle systolic pressure 44-49 mmHg assuming a right atrial pressure of 5-10 mmHg. No pulmonic regurgitation. Pulmonary artery acceleration time: 108 ms MITRAL ANNULAR TISSUE DOPPLER E prime septal: 7.7 cm/sec E prime lateral: 108 cm/sec DESCRIPTION: The rhythm was sinus . Image quality was good. Right bundle branch block appearance. This was a 2-D, M-mode, color flow Doppler and pulsed wave Doppler examination and included mitral annular tissue Doppler. CONCLUSIONS: 1. Borderline concentric left ventricular hypertrophy with superimposed moderate focal hypertrophy of the basal anterior ventricular septum. No dynamic LVOT obstruction. No regional wall motion abnormalities of the left ventricle. Normal LV systolic function. Left ventricular ejection fraction (LVEF) 65% by visual estimate. Normal LV diastolic function for age. 2. Mild left atrial dilatation. 3. Mild aortic valve sclerosis of a 3-cusp aortic valve. No aortic regurgitation. 4. Mild mitral annular calcification with mild mitral regurgitation. 5. Suggestive of moderate elevation of estimated right ventricular systolic pressure (44-49 mmHg). Mild tricuspid regurgitation. Normal right ventricular size and systolic function. Moderate right atrial dilatation by visual estimate. 6. False tendon at mid level in the left ventricle (normal variant). 7. No pericardial effusion.
== END 2019-11-23 14:39 | disposition home or self-care (01) | DRG 65 ==
LOC: M ED 09:47 → M ED INP 13:26 → M PCU 16:05 → M MSPAV 11-22 17:19
PROVIDERS: ADMIT General Practice; ATTEND General Practice
DX: I63.9 Cerebral infarction, unspecified (principal); I48.92 Unspecified atrial flutter; I16.0 Hypertensive urgency; E11.9 Type 2 diabetes mellitus without complications; D50.9 Iron deficiency anemia, unspecified; I10 Essential (primary) hypertension; Z79.899 Other long term (current) drug therapy

== ENCOUNTER 2019-11-26 05:15 | Emergency (ER) | payer MEDICARE ==
[~2019-11-26] VITALS: Ht 177.8 cm; Wt 78.6 kg
[~2019-11-26 05:15] MED LIST changes: +AMLO10TA5 PO; +ATOR1TAB21 PO; +ELIQ2.5T PO
[2019-11-26 07:23] LABS: HEMATOCRIT 31.4 % (42.0-52.0); HEMOGLOBIN 10.3 g/dl (13.5-17.5)
[2019-11-26 08:08] VITALS: BP 144/82
== END 2019-11-26 08:09 | disposition home or self-care (01) ==
LOC: M ED 05:15
DX: T83.091A Other mechanical complication of indwelling urethral catheter, initial encounter (principal); E11.9 Type 2 diabetes mellitus without complications; I10 Essential (primary) hypertension; Z79.4 Long term (current) use of insulin; Z79.899 Other long term (current) drug therapy

== ENCOUNTER 2019-12-02 05:04 | Emergency (ER) | payer MEDICARE ==
[~2019-12-02] VITALS: Ht 177.8 cm; Wt 75.9 kg
[2019-12-02 05:06] VITALS: BP 166/74
== END 2019-12-02 06:20 | disposition home or self-care (01) ==
LOC: M ED 05:04
DX: T85.690A Other mechanical complication of cranial or spinal infusion catheter, initial encounter (principal); E11.9 Type 2 diabetes mellitus without complications; Y84.6 Urinary catheterization as the cause of abnormal reaction of the patient, or of later complication, without mention of misadventure at the time of the procedure; E78.00 Pure hypercholesterolemia, unspecified; R33.9 Retention of urine, unspecified; Z79.01 Long term (current) use of anticoagulants; Z79.4 Long term (current) use of insulin; Z79.899 Other long term (current) drug therapy; Z86.73 Personal history of transient ischemic attack (TIA), and cerebral infarction without residual deficits

== ENCOUNTER 2019-12-08 02:28 | Emergency (ER) | payer MEDICARE ==
[~2019-12-08] VITALS: Ht 177.8 cm; Wt 75.9 kg
[~2019-12-08 02:28] MED LIST changes: -AMLO10TA5 PO; +AMLO1TAB25 PO
[2019-12-08 03:40] VITALS: BP 142/77
== END 2019-12-08 04:00 | disposition home or self-care (01) ==
LOC: M ED 02:28
DX: R39.198 Other difficulties with micturition (principal); T83.098A Other mechanical complication of other urinary catheter, initial encounter; E11.9 Type 2 diabetes mellitus without complications; I10 Essential (primary) hypertension; Z79.4 Long term (current) use of insulin; Z79.899 Other long term (current) drug therapy

== ENCOUNTER → 2019-12-08 | Outpatient (REF) | payer MEDICARE ==
[2019-12-08 17:59] LABS: APPEARANCE, URINE TURBID (CLEAR); BACTERIA, URINE AUTO 3+ (NEGATIVE); BILIRUBIN, URINE AUTO NEGATIVE (NEGATIVE); BLOOD, URINE BLOOD 3+ (NEGATIVE); COLOR, URINE YELLOW (YELLOW); GLUCOSE, URINE (UA) AUTO NEGATIVE (NEGATIVE); KETONE, URINE AUTO NEGATIVE (NEGATIVE); LEUKOCYTE ESTERASE, URINE AUTO 3+ (NEGATIVE); NITRITE, URINE AUTO NEGATIVE (NEGATIVE); PROTEIN, URINE AUTO 2+ mg/dL (NEGATIVE); RBC, URINE AUTO TNTC /HPF (0-3); SPECIFIC GRAVITY URINE AUTO 1.014 (1.002-1.035); SQUAMOUS EPITHELIAL CELL UR AU 0 /HPF (0-6); UROBILINOGEN, URINE AUTO 0.2 mg/dL (0.0-2.0); WBC, URINE AUTO TNTC /HPF (0-3)
== END ==
LOC: M SMT 17:12
PROVIDERS: ATTEND Nurse Practitioner Family
DX: R82.90 Unspecified abnormal findings in urine (principal)

== ENCOUNTER 2019-12-10 11:59 | Emergency (ER) | payer MEDICARE ==
[~2019-12-10] VITALS: Ht 177.8 cm; Wt 77.7 kg
[~2019-12-10 11:59] MED LIST changes: +AMLO10TA5 PO; -AMLO1TAB25 PO
[2019-12-10] MEDS ORDERED: LIDOCAINE 2% 5ML JELLY UROJET As Ordered ONE (13:44)
[2019-12-10] MEDS ORDERED: LIDOCAINE 2% 5ML JELLY UROJET TOP ONE (13:45)
[2019-12-10 15:11] VITALS: BP 159/72
== END 2019-12-10 15:12 | disposition home or self-care (01) ==
LOC: M ED 11:59
DX: T83.098A Other mechanical complication of other urinary catheter, initial encounter (principal); R33.8 Other retention of urine; N39.0 Urinary tract infection, site not specified; E11.9 Type 2 diabetes mellitus without complications; I10 Essential (primary) hypertension; Z79.84 Long term (current) use of oral hypoglycemic drugs; Z79.899 Other long term (current) drug therapy

== ENCOUNTER → 2020-02-13 | Outpatient (CLI) | payer MEDICARE ==
[~2020-02-13] MED LIST changes: -AMLO10TA5 PO; +AMLO1TAB25 PO; +ASPI81CH33 PO
--- NOTE | 2020-03-22 10:16 | REP ---
CAROTID SONOGRAPHY: FINDINGS: Antegrade flow is observed in both vertebral arteries. RIGHT CAROTID: The right common carotid artery shows mild diffuse intimal thickening, but is otherwise unremarkable. There is mixed plaquing in the bulb and proximal ICA on 2 dimensional scarring. Color flow and spectral Doppler interrogation are unremarkable however. VELOCITY CHART PSV RIGHT (cm/s) RIGHT EDV (cm/s) CCA 92 ICA 136 17 ECA 124 ICA/CCA ratio 1.48 (normal) IMPRESSION: Less than 50% category narrowing in the right ICA by Doppler velocity criteria. LEFT CAROTID: The left common carotid artery shows mild intimal thickening. There is mixed plaquing in the bulb and the proximal ICA on the left side. Stenotic flow velocities are observed in the ICA and ECA on color Doppler interrogation on the left side. VELOCITY CHART PSV LEFT (cm/s) LEFT EDV (cm/s) CCA 115 ICA 176 24 ECA 172 ICA/CCA ratio 1.53 50-69% category narrowing in the left ICA by Doppler velocity criteria. MTDD
== END ==
LOC: M RAD 06:14
PROVIDERS: ATTEND Surgery Vascular Surgery
DX: I65.23 Occlusion and stenosis of bilateral carotid arteries (principal)

== ENCOUNTER → 2020-03-26 | Outpatient (REF) | payer MEDICARE ==
[2020-03-26 18:24] LABS: APPEARANCE, URINE CLOUDY (CLEAR); BACTERIA, URINE AUTO 3+ (NEGATIVE); BILIRUBIN, URINE AUTO NEGATIVE (NEGATIVE); BLOOD, URINE BLOOD 3+ (NEGATIVE); COLOR, URINE AMBER (YELLOW); GLUCOSE, URINE (UA) AUTO NEGATIVE (NEGATIVE); KETONE, URINE AUTO NEGATIVE (NEGATIVE); LEUKOCYTE ESTERASE, URINE AUTO 3+ (NEGATIVE); NITRITE, URINE AUTO NEGATIVE (NEGATIVE); PROTEIN, URINE AUTO 2+ mg/dL (NEGATIVE); RBC, URINE AUTO TNTC /HPF (0-3); SPECIFIC GRAVITY URINE AUTO 1.016 (1.002-1.035); SQUAMOUS EPITHELIAL CELL UR AU 0 /HPF (0-6); UROBILINOGEN, URINE AUTO 0.2 mg/dL (0.0-2.0); WBC, URINE AUTO TNTC /HPF (0-3)
== END ==
LOC: M SMT 16:46
PROVIDERS: ATTEND Urology
DX: N39.0 Urinary tract infection, site not specified (principal)

== ENCOUNTER 2020-04-20 07:53 | Emergency (ER) | payer MEDICARE ==
[~2020-04-20] VITALS: Ht 167.6 cm; Wt 75.9 kg
[~2020-04-20 07:53] MED LIST changes: -ASPI81CH33 PO
[2020-04-20] MEDS ORDERED: ASPI81CH33 PO (08:07)
[2020-04-20 09:06] LABS: BASO # 0.1 10^3/uL (0.0-0.2); BASO % 0.9 % (0.0-1.0); EOS # 0.5 10^3/uL (0.0-0.5); EOS % 7.2 % (0.0-3.0); HEMATOCRIT 32.5 % (42.0-52.0); HEMOGLOBIN 10.7 g/dl (13.5-17.5); LYMPH # 1.7 10^3/uL (1.5-5.0); LYMPH % 24.9 % (24.0-44.0); MEAN CORPUSCULAR HEMOGLOBIN 31.7 pg (27.0-33.0); MEAN CORPUSCULAR HGB CONC 32.9 g/dl (32.0-36.5); MEAN CORPUSCULAR VOLUME 96.2 fl (80.0-96.0); MONO # 0.4 10^3/uL (0.0-0.8); MONO % 6.2 % (0.0-5.0); NEUTROPHILS # 4.1 10^3/uL (1.5-8.5); NEUTROPHILS % 60.4 % (36.0-66.0); PLATELET COUNT, AUTOMATED 251 10^3/uL (150-450); RED BLOOD COUNT 3.38 10^6/uL (4.30-6.10); WHITE BLOOD COUNT 6.8 10^3/uL (4.0-10.0)
[2020-04-20] MEDS ORDERED: LIDOCAINE 2% 5ML JELLY UROJET TOP ONE (09:15)
[2020-04-20 09:21] LABS: BILIRUBIN, URINE MANUAL OBSCURED (NEGATIVE); GLUCOSE, URINE (UA) MANUAL 3+(500 MG/DL) mg/dL (NEGATIVE); KETONE, URINE MANUAL OBSCURED mg/dL (NEGATIVE); UROBILINOGEN, URINE MANUAL OBSCURED mg/dl (NORMAL)
[2020-04-20 09:21] LABS: CALCIUM LEVEL 8.1 MG/DL (8.8-10.2); CREATININE FOR GFR 1.4 MG/DL (0.70-1.30); GLOMERULAR FILTRATION RATE 51.5 (>35); POTASSIUM SERUM 5.2 MEQ/L (3.5-5.1)
[2020-04-20 09:22] LABS: HYALINE CAST, URINE NONE SEEN /lpf (0-1); RBC, URINE TNTC /hpf (0-3); SQUAMOUS EPITHELIAL CELL URINE NONE SEEN /hpf (SMALL AMT)
[2020-04-20 09:23] LABS: BACTERIA, URINE MOD AMOUNT
[2020-04-20 10:03] VITALS: BP 150/70
== END 2020-04-20 11:00 | disposition home or self-care (01) ==
LOC: M ED 07:53
DX: T83.098A Other mechanical complication of other urinary catheter, initial encounter (principal); Z46.6 Encounter for fitting and adjustment of urinary device; E11.9 Type 2 diabetes mellitus without complications; N40.0 Benign prostatic hyperplasia without lower urinary tract symptoms; Z79.01 Long term (current) use of anticoagulants; Z79.899 Other long term (current) drug therapy

== ENCOUNTER 2020-05-28 23:53 | Emergency (ER) | payer MEDICARE ==
[~2020-05-28] VITALS: Ht 167.6 cm; Wt 77.3 kg
[~2020-05-28 23:53] MED LIST changes: +ASPI81CH33 PO
[2020-05-29 01:16] LABS: BILIRUBIN, URINE MANUAL NEGATIVE (NEGATIVE); GLUCOSE, URINE (UA) MANUAL 1+(100 MG/DL) mg/dL (NEGATIVE); KETONE, URINE MANUAL NEGATIVE (NEGATIVE); UROBILINOGEN, URINE MANUAL NORMAL (NORMAL)
[2020-05-29 01:19] LABS: BASO # 0.1 10^3/uL (0.0-0.2); BASO % 0.6 % (0.0-1.0); EOS # 0.5 10^3/uL (0.0-0.5); EOS % 6.3 % (0.0-3.0); HEMATOCRIT 30.8 % (42.0-52.0); LYMPH # 1.8 10^3/uL (1.5-5.0); LYMPH % 21.3 % (24.0-44.0); MEAN CORPUSCULAR HEMOGLOBIN 31.4 pg (27.0-33.0); MEAN CORPUSCULAR HGB CONC 32.5 g/dl (32.0-36.5); MEAN CORPUSCULAR VOLUME 96.9 fl (80.0-96.0); MONO # 0.6 10^3/uL (0.0-0.8); MONO % 7.7 % (0.0-5.0); NEUTROPHILS # 5.3 10^3/uL (1.5-8.5); NEUTROPHILS % 63.9 % (36.0-66.0); PLATELET COUNT, AUTOMATED 188 10^3/uL (150-450); RED BLOOD COUNT 3.18 10^6/uL (4.30-6.10); WHITE BLOOD COUNT 8.3 10^3/uL (4.0-10.0)
[2020-05-29 01:30] LABS: INR 1.02; PROTHROMBIN TIME 13.6 SECONDS (12.5-14.3)
[2020-05-29 01:31] LABS: PARTIAL THROMBOPLASTIN TIME 29.4 SECONDS (24.2-38.5)
[2020-05-29 01:33] LABS: CALCIUM LEVEL 8.2 MG/DL (8.8-10.2); CREATININE FOR GFR 1.45 MG/DL (0.70-1.30); GLOMERULAR FILTRATION RATE 49.4 (>35); POTASSIUM SERUM 4.2 MEQ/L (3.5-5.1)
[2020-05-29 01:37] LABS: RBC, URINE 15-20 /hpf (0-3)
[2020-05-29 01:40] LABS: AMORPHOUS SEDIMENT, URINE SMALL AMOUNT (NEGATIVE); BACTERIA, URINE MOD AMOUNT; HYALINE CAST, URINE NONE SEEN /lpf (0-1); SQUAMOUS EPITHELIAL CELL URINE SMALL AMOUNT /hpf (SMALL AMT)
[2020-05-29 01:53] VITALS: BP 148/62
== END 2020-05-29 02:25 | disposition home or self-care (01) ==
LOC: M ED 23:53
DX: R31.9 Hematuria, unspecified (principal); E11.9 Type 2 diabetes mellitus without complications; M54.30 Sciatica, unspecified side; I10 Essential (primary) hypertension

== ENCOUNTER 2020-06-05 03:58 | Emergency (ER) | payer MEDICARE ==
[~2020-06-05] VITALS: Ht 167.6 cm; Wt 81.5 kg
[2020-06-05 04:00] VITALS: BP 155/74
[2020-06-05] MEDS ORDERED: FINA5TAB2 PO (04:15)
== END 2020-06-05 04:55 | disposition home or self-care (01) ==
LOC: M ED 03:58
DX: T83.098A Other mechanical complication of other urinary catheter, initial encounter (principal); E11.9 Type 2 diabetes mellitus without complications; I10 Essential (primary) hypertension; E78.5 Hyperlipidemia, unspecified; Z79.01 Long term (current) use of anticoagulants; Z79.82 Long term (current) use of aspirin; Z79.899 Other long term (current) drug therapy

== ENCOUNTER 2020-06-18 23:13 | Emergency (ER) | payer MEDICARE ==
[~2020-06-18] VITALS: Ht 167.6 cm; Wt 77.3 kg
[~2020-06-18 23:13] MED LIST changes: +FINA5TAB2 PO
[2020-06-19 01:06] VITALS: BP 136/68
== END 2020-06-19 01:10 | disposition home or self-care (01) ==
LOC: M ED 23:13
DX: R33.9 Retention of urine, unspecified (principal); T83.091A Other mechanical complication of indwelling urethral catheter, initial encounter; E11.9 Type 2 diabetes mellitus without complications; I10 Essential (primary) hypertension; E78.5 Hyperlipidemia, unspecified; Z79.01 Long term (current) use of anticoagulants; Z79.899 Other long term (current) drug therapy; Z79.84 Long term (current) use of oral hypoglycemic drugs

== ENCOUNTER 2020-06-26 22:26 | Emergency (ER) | payer MEDICARE ==
[~2020-06-26] VITALS: Ht 167.6 cm; Wt 81.7 kg
[2020-06-27 00:44] LABS: APPEARANCE, URINE MANUAL CLOUDY (CLEAR); BILIRUBIN, URINE MANUAL NEGATIVE (NEGATIVE); BLOOD URINE MANUAL POSITIVE (NEGATIVE); COLOR, URINE MANUAL YELLOW (YELLOW); GLUCOSE, URINE (UA) MANUAL 3+(500 MG/DL) mg/dL (NEGATIVE); KETONE, URINE MANUAL NEGATIVE (NEGATIVE); LEUKOCYTE ESTERASE, URINE MAN POSITIVE (NEGATIVE); NITRITE, URINE MANUAL POSITIVE (NEGATIVE); PROTEIN, URINE MANUAL 2+ mg/dL (NEGATIVE); UROBILINOGEN, URINE MANUAL NORMAL (NORMAL)
[2020-06-27 00:47] LABS: SQUAMOUS EPITHELIAL CELL URINE SMALL AMOUNT /hpf (SMALL AMT); WBC, URINE TNTC /hpf (0-3)
[2020-06-27 00:48] LABS: BACTERIA, URINE LARGE AMOUNT; HYALINE CAST, URINE NONE SEEN /lpf (0-1)
--- NOTE | 2020-06-27 00:54 | ED PDOC ---
Post-Departure Follow-Up 85M with a history of BPH, CVA, HLD, HTN, and DM presents with urinary retention . He reports that he had his ureña cath placed a week ago by his Urologist, Dr. Diamond. He was draining urine up until 8pm this evening. He has had frequent episodes of an obstructed ureña catheter, and was given a syringe to flush his ureña at home. His made two attempts prior to arrival, but was unsuccessful, which prompted him to come to the ER. His associated symptoms i nclude occasional suprapubic discomfort and urinary urgency. He denies fever, chills, increased sweating, nausea, vomiting, diarrhea, constipation, CP, SOB, leg pain/swelling, dysuria, hematuria, recent travel/hospitalization or other symptoms. His exam is notable for a ureña cath that is not draining any urine. His abdomen is benign. He is afebrile, hemodynamically stable and nontoxic appearing. Labs were obtained. He ureña was repositioned and flushed successfully. His work up was TIMUR CHANEY MD Jun 27, 2020 00:54
[2020-06-27] MEDS ORDERED: MACR100C43 PO (01:41)
[2020-06-27] MEDS ORDERED: NITROFURANTOIN (MACROBID) 100 MG CAP PO ONE (01:45)
[2020-06-27 02:00] VITALS: BP 149/67
== END 2020-06-27 02:30 | disposition home or self-care (01) ==
LOC: M ED 22:26
DX: T83.098A Other mechanical complication of other urinary catheter, initial encounter (principal); N40.1 Benign prostatic hyperplasia with lower urinary tract symptoms; Z79.01 Long term (current) use of anticoagulants; Z79.4 Long term (current) use of insulin; Z79.82 Long term (current) use of aspirin; Z79.899 Other long term (current) drug therapy

== ENCOUNTER 2020-08-10 04:27 | Emergency (ER) | payer MEDICARE ==
[~2020-08-10] VITALS: Ht 167.6 cm; Wt 79.1 kg
[~2020-08-10 04:27] MED LIST changes: +MACR100C43 PO
[2020-08-10 04:28] VITALS: BP 143/116
--- OUTSIDE RECORDS SUMMARY | 2020-08-10 04:33 | CCD ---
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 Name Role Phone Jordana Delaney Unavailable PROBLEMS Type Condition ICD9-CM Code [id number] Code Onset Dates Condition S tatus SNOMED Code Notes Problem Urinary retention R33.9 Active 207179195 Problem 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 Active 236 [id number] ALLERGIES No Known Allergies ENCOUNTERS from 1935 to 2020-06-27 Encounter Location Date Provider Diagnosis [facility] [id number] [place] [address] May Jordana Recore Urinary retention R33.9 IMMUNIZATIONS Vaccine Route Administration Date Status Influenza (36 months & up) ([facility]) Unknown Mar 11, 2020 Administered SOCIAL HISTORY Tobacco Use: Social History Observation Description Date Details (start date - stop date) Never Smoker Sex Assigned At : Social History Observation Description Sex Assigned At Unknown Language: Question Answer Notes Languages spoken: [place] Pentecostal: Question Answer Notes Pentecostal No restoration beliefs that would impact health care. Domestic Violence: Question Answer Notes Status: Alcohol Screening: Question Answer Notes Did you have a drink containing alcohol in the past year? No Points 0 Interpretation Negative Tobacco Use: Question Answer Notes Are you a: never smoker REASON FOR REFERRAL No Information VITAL SIGNS Weight 173 lbs May, Height 68 in May, BMI 26.30 kg/m2 May, Heart Rate 70 /min May, Respiratory Rate 18 /min May, Temperature 97.3 degrees Fahrenheit May, Oximetry 95% May, Blood pressure systolic 185 mm Hg May, Blood pressure diastolic 77 mm Hg May, MEDICATIONS Medication SIG (Take, Route, Frequency, Duration) Notes Start Da te End Date Status Vitamin B12 1000 MCG 1 tablet Orally Once a day for 30 day(s) Active Ceftriaxone Sodium 2 GM as directed Injection Not-Taking Metformin HCl 1000 MG 1 tablet with a meal Orally Once a day for 30 day(s) Active MiraLax - as directed Orally Active Keflex 500 MG 1 capsule 1 hour prior to your cystoscop y Orally Once for 1 days Jul, Not-Taking Pravastatin Sodium 20 MG 1 tablet Orally Once a day for 30 day(s) Active Macrobid 100 MG 1 capsule at bedtime with food Orally On ce a day for 10 day(s) Active Losartan Potassium 100 MG 1 tablet Orally Once a day for 30 day(s) Active Levemir Flexpen Active Eliquis 2.5 MG 1 tab Orally bid Acti ve Omeprazole 20 MG 1 tablet 30 minutes before a meal Orally Once a day for 30 day(s) Active Ferrous Sulfate 325 (65 Fe) MG 1 tablet Orally Once a day for 30 day( s) Active Proscar 5 MG 1 tablet Orally Once a day Dec, Active Bactrim DS 800-160 MG 1 tablet Orally Twice a day for 10 day(s) Mar, Not-Taking Aspir-81 Active Senna 8.6 MG 2 tablets at bedtime as needed Orally Once a day for 3 0 day(s) Active Flomax 0.4 MG 1 capsule Orally Once a day for 30 day(s) Active Multivitamin Adults 50+ - as directed Orally Active PROCEDURES from 1935 to 2020-06-27 Procedure Date Ordered Result Body Site BLADDER IRRIGATION, SIMPLE, LAVAGE AND/OR INSTILLATION 2020-05-30 1 N/A RESULTS No Results REASON FOR VISIT cath problem MEDICAL (GENERAL) HISTORY Type Description Date Medical History type 2 dm Medical History hyperlipedemia Medical History essential htnsciatica Medical History radioculopathy , lumbar region Surgical History back surgery Hospitalization History surgery related Goals Section No Information Health Concerns No Information MEDICAL EQUIPMENT No Information MENTAL STATUS No Information FUNCTIONAL STATUS No Information ASSESSMENTS Encounter Date Diagnosis Assessment Notes Treatment Notes Treatm ent Clinical Notes May, Urinary retention (ICD-10 - R33.9) May, Other Caring for your ureña cathet er material was printed PLAN OF TREATMENT Next Appt Details 3 Weeks Reason:cath chg Provider Name:Lonnie Gaspar, 2020-07-16 01:30:00 PM, [id number], [place], [address], [facility] Providers Payer Name Payer Address Payer Phone Insured Name Patient Relati onship to Insured Coverage Start Date Coverage End Date MEDICARE BLUE O [phone] [address] [place] self
--- OUTSIDE RECORDS SUMMARY | 2020-08-10 04:33 | CCD ---
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 confirme d [id number] ALLERGIES No Known Allergies ENCOUNTERS from 1935 to 2020-08-05 Encounter Location Date Provider Diagnosis [facility] Urology [address] [place] [address] Jul Rod Diamond 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 ; Uri nary retention R33.9 and Immunization not carried out because of patient refusal Z28.21 IMMUNIZATIONS Vaccine Route Administration Date Status Influenza (36 months & up) ([facility]) Unknown Mar 11, 2020 Administered SOCIAL HISTORY Tobacco Use: Social History Observation Description Date Details (start date - stop date) Never Smoker Sex Assigned At : Social History Observation Description Sex Assigned At Unknown Language: Question Answer Notes Languages spoken: Belarusian Synagogue: Question Answer Notes Synagogue No jehovah's witness beliefs that would impact health care. Domestic Violence: Question Answer Notes Status: Alcohol Screening: Question Answer Notes Did you have a drink containing alcohol in the past year? No Points 0 Interpretation Negative Tobacco Use: Question Answer Notes Are you a: never smoker REASON FOR REFERRAL No Information VITAL SIGNS Weight 178 lbs Jul, Height 68 in Jul, BMI 27.06 kg/m2 Jul, Heart Rate 78 /min Jul, Respiratory Rate 20 /min Jul, Temperature 95.9 degrees Fahrenheit Jul, Oximetry 99% Jul, Blood pressure systolic 175 mm Hg Jul, Blood pressure diastolic 90 mm Hg Jul, MEDICATIONS Medication SIG (Take, Route, Frequency, Duration) Notes Start Da te End Date Status Pravastatin Sodium 20 MG 1 tablet Orally Once a day for 30 day(s) Active Ferrous Sulfate 325 (65 Fe) MG 1 tablet Orally Once a day for 30 day( s) Active Levemir Flexpen Active Eliquis 2.5 MG 1 tab Orally bid Acti ve Losartan Potassium 100 MG 1 tablet Orally Once a day for 30 day(s) Active Senna 8.6 MG 2 tablets at bedtime as needed Orally Once a day for 3 0 day(s) Active Macrobid 100 MG 1 capsule at bedtime with food Orally On ce a day for 10 day(s) Active Multivitamin Adults 50+ - as directed Orally Active Vitamin B12 1000 MCG 1 tablet Orally Once a day for 30 day(s) Active MiraLax - as directed Orally Active Keflex 500 MG 1 capsule 1 hour prior to your cystoscop y Orally Once for 1 days Jul, Not-Taking Aspir-81 Active Flomax 0.4 MG 1 capsule Orally Once a day for 30 day(s) Active Omeprazole 20 MG 1 tablet 30 minutes before a meal Orally Once a day for 30 day(s) Active Ceftriaxone Sodium 2 GM as directed Injection Not-Taking Metformin HCl 1000 MG 1 tablet with a meal Orally Once a day for 30 day(s) Active Proscar 5 MG 1 tablet Orally Once a day Dec, Active Bactrim DS 800-160 MG 1 tablet Orally Twice a day for 10 day(s) Mar, Not-Taking PROCEDURES from 1936 to 2020-08-05 Procedure Date Ordered Result Body Site Medication: Lidocaine HCl 2% Jelly 5mL Intravesically 2020-08-05 N/A Burt Catheter Coude Insertion 20F 2020-08-05 N/A RESULTS No Results REASON FOR VISIT cath not draining MEDICAL (GENERAL) HISTORY Type Description Date Medical [...] Notes Treatment Notes Treatm ent Clinical Notes Jul, BPH with urinary obstruction (ICD-10 - N40.1) Jul, Urinary retention (ICD-10 - R33.9) Jul, Immunization not carried out because of patient refusal (ICD-10 - Z28.21) PLAN OF TREATMENT Next Appt Details 4 Weeks Reason:cath chg Provider Name:Lonnie Gaspar, 2020-09-05 08:30:00 AM, [address], [place], [address], Follow Up:4 Weekscat chg Insurance Providers Payer Name Payer Address Payer Phone Insured Name Patient Relati onship to Insured Coverage Start Date Coverage End Date MEDICARE BLUE PPO [id number] [employer] [id number] [address] MAR[place] AMARO self
--- OUTSIDE RECORDS SUMMARY | 2020-08-10 04:33 | CCD ---
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 Urology [address] [place] [address] 08 Jul Lonnie Gaspar IMMUNIZATIONS Vaccine Route Administration Date Status Influenza (36 months & up) ([facility]) Unknown Mar 11, 2020 Administered SOCIAL HISTORY Tobacco Use: Social History Observation Description Date Details (start date - stop date) Never Smoker Sex Assigned At : Social History Observation Description Sex Assigned At Unknown Language: Question Answer Notes Languages spoken: Ukrainian Orthodox: Question Answer Notes Orthodox No confucianist beliefs that would impact health care. Domestic Violence: Question Answer Notes Status: Alcohol Screening: Question Answer Notes Did you have a drink containing alcohol in the past year? No Points 0 Interpretation Negative Tobacco Use: Question Answer Notes Are you a: never smoker REASON FOR REFERRAL No Information VITAL SIGNS No information MEDICATIONS Medication SIG (Take, Route, Frequency, Duration) [...] day for 10 day(s) Mar, Not-Taking PROCEDURES No Information RESULTS No Results REASON FOR VISIT cath/lido orders MEDICAL (GENERAL) HISTORY Type Description Date Medical History type 2 dm Medical History hyperlipedemia Medical History essential htnsciatica Medical History radioculopathy , lumbar region Surgical History back surgery Hospitalization History surgery related Goals Section No Information Health Concerns No Information MEDICAL EQUIPMENT No Information MENTAL STATUS No Information FUNCTIONAL STATUS No Information ASSESSMENTS No Information PLAN OF TREATMENT Next Appt Details Provider Name:Lonnie Gaspar, 2020-09-05 08:30:00 AM, [address], [place], [address], Insurance Providers Payer Name Payer Address Payer Phone Insured Name Patient Relati onship to Insured Coverage Start Date Coverage End Date MEDICARE BLUE PPO [address] [place] [facility] BLUE CROSS [address] [facility] [id number] [place] AMARO self
--- OUTSIDE RECORDS SUMMARY | 2020-08-10 04:33 | CCD ---
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 236 994598 ALLERGIES No Known Allergies ENCOUNTERS from 1935 to 2020-07-17 Encounter Location Date Provider Diagnosis [facility] Urology [address] [place] [address] Jun Lonnie Gaspar Urinary retention R33.9 IMMUNIZATIONS Vaccine Route Administration Date Status Influenza (36 months & up) ([facility]) Unknown Mar 11, 2020 Administered SOCIAL HISTORY Tobacco Use: Social History Observation Description Date Details (start date - stop date) Never Smoker Sex Assigned At : Social History Observation Description Sex Assigned At Unknown Language: Question Answer Notes Languages spoken: Uruguayan Protestant: Question Answer Notes Protestant No taoist beliefs that would impact health care. Domestic Violence: Question Answer Notes Status: Alcohol Screening: Question Answer Notes Did you have a drink containing alcohol in the past year? No Points 0 Interpretation Negative Tobacco Use: Question Answer Notes Are you a: never smoker REASON FOR REFERRAL No Information VITAL SIGNS Weight 173 lbs Jun, Height 68 in Jun, BMI 26.30 kg/m2 Jun, Heart Rate 70 /min Jun, Respiratory Rate 18 /min Jun, Oximetry 94 Jun, Blood pressure systolic 150 mm Hg Jun, Blood pressure diastolic 74 mm Hg Jun, MEDICATIONS Medication SIG (Take, Route, Frequency, Duration) Notes Start Da te End Date Status Keflex 500 MG 1 capsule 1 hour prior to your cystoscop y Orally Once for 1 days Jul, Not-Taking Levemir Flexpen Active Flomax 0.4 MG 1 capsule Orally Once a day for 30 day(s) Active Aspir-81 Active Ceftriaxone Sodium 2 GM as directed Injection Not-Taking Vitamin B12 1000 MCG 1 tablet Orally Once a day for 30 day(s) Active MiraLax - as directed Orally Active Metformin HCl 1000 MG 1 tablet with a meal Orally Once a day for 30 day(s) Active Eliquis 2.5 MG 1 tab Orally bid Acti ve Bactrim DS 800-160 MG 1 tablet Orally Twice a day for 10 day(s) Mar, Not-Taking Proscar 5 MG 1 tablet Orally Once a day Dec, Active Macrobid 100 MG 1 capsule at bedtime with food Orally On ce a day for 10 day(s) Active Pravastatin Sodium 20 MG 1 tablet Orally Once a day for 30 day(s) Active Senna 8.6 MG 2 tablets at bedtime as needed Orally Once a day for 3 0 day(s) Active Ferrous Sulfate 325 (65 Fe) MG 1 tablet Orally Once a day for 30 day( s) Active Omeprazole 20 MG 1 tablet 30 minutes before a meal Orally Once a day for 30 day(s) Active Multivitamin Adults 50+ - as directed Orally Active Losartan Potassium 100 MG 1 tablet Orally Once a day for 30 day(s) Active PROCEDURES from 1936 to 2020-07-17 Procedure Date Ordered Result Body Site Medication: Lidocaine HCl 2% Jelly 5mL Intravesically 2020-07-16 N/A RESULTS No Results REASON FOR VISIT [facility] MEDICAL (GENERAL) HISTORY Type Description Date Medical [...] Notes Treatment Notes Treatm ent Clinical Notes Jun, Urinary retention (ICD-10 - R33.9) PLAN OF TREATMENT Treatment Notes Test Name Order Date Burt Catheter Coude Insertion 20F 2020-07-17 Next Appt Details Provider Name:Lonnie Sage Hubert, 2020-08-15 08:15:00 AM, [address], [place], [address], Insurance Providers Payer Name Payer Address Payer Phone Insured Name Patient Relati onship to Insured Coverage Start Date Coverage End Date MEDICARE BLUE O [id number] [address] [place] AM[place] self
--- OUTSIDE RECORDS SUMMARY | 2020-08-10 04:36 | CCD ---
Author Author [facility] Organization [facility] Address Unknown Phone Unavailable Care Team Providers Care Field Supervisor [employer] Name Role Phone Shanelle Barrera MD Unavailable Unavailable Shanelle Barrera MD Unavailable Unavailable Shanelle Barrera MD Unavailable Unavailable Shanelle Barrera MD Unavailable Unavailable Shanelle Barrera MD Unavailable Unavailable Shanelle Barrera MD Unavailable Unavailable Shanelle Barrera MD Unavailable Unavailable Shanelle Barrera MD Unavailable Unavailable Shanelle Barrera MD Unavailable Unavailable Shanelle Barrera MD Unavailable Unavailable Shanelle Barrera MD Unavailable Unavailable Shanelle Barrera MD Unavailable Unavailable Shanelle Barrera MD Unavailable Unavailable Shanelle Barrera MD Unavailable Unavailable Shanelle Barrera MD Unavailable Unavailable Shanelle Barrera MD Unavailable Unavailable Shanelle Barrera MD Unavailable Unavailable Shanelle Barrera MD Unavailable Unavailable Shanelle Barrera MD Unavailable Unavailable Shanelle Barrera MD Unavailable Unavailable Shanelle Barrera MD Unavailable Unavailable Shanelle Barrera MD Unavailable Unavailable Shanelle Barrera MD Unavailable Unavailable Shanelle Barrera MD Unavailable Unavailable Shanelle Barrera MD Unavailable Unavailable Shanelle Barrera MD Unavailable Unavailable Shanelle Barrera MD Unavailable Unavailable Shanelle Barrera MD Unavailable Unavailable Shanelle Barrera MD Unavailable Unavailable Shanelle Barrera MD Unavailable Unavailable Shanelle Barrera MD Unavailable Unavailable Shanelle Barrera MD Unavailable Unavailable Shanelle Barrera MD Unavailable Unavailable Shanelle Barrera MD Unavailable Unavailable Shanelle Barrera MD Unavailable Unavailable Shanelle Barrera MD Unavailable Unavailable Shanelle Barrera MD Unavailable Unavailable Shanelle Barrera MD Unavailable Unavailable Shanelle Barrera MD Unavailable Unavailable Shanelle Barrera MD Unavailable Unavailable Shanelle Barrera MD Unavailable Unavailable Shanelle Barrera MD Unavailable Unavailable Shanelle Barrera MD Unavailable Unavailable Shanelle Barrera MD Unavailable Unavailable Shanelle Barrera MD Unavailable Unavailable Shanelle Barrera MD Unavailable Unavailable Shanelle Barrera MD Unavailable Unavailable Shanelle Barrera MD Unavailable Unavailable Shanelle Barrera MD Unavailable Unavailable Shanelle Barrera MD Unavailable Unavailable Shanelle Barrera MD Unavailable Unavailable Shanelle Barrera MD Unavailable Unavailable Shanelle Barrera MD Unavailable Unavailable Shanelle Barrera MD Unavailable Unavailable Shanelle Barrera MD Unavailable Unavailable Shanelle Barrera MD Unavailable Unavailable Shanelle Barrera MD Unavailable Unavailable Shanelel Barrera MD Unavailable Unavailable Shanelle Barrera MD Unavailable Unavailable Shanelle Barrera MD Unavailable Unavailable Shanelle Barrera MD Unavailable Unavailable Shanelle Barrera MD Unavailable Unavailable Shanelle Barrera MD Unavailable Unavailable Shanelle Barrera MD Unavailable Unavailable Shanelle Barrera MD Unavailable Unavailable Shanelle Barrera MD Unavailable Unavailable Shanelle Barrera MD Unavailable Unavailable Shanelle Barrera MD Unavailable Unavailable Shanelle Barrera MD Unavailable Unavailable Shanelle Barrera MD Unavailable Unavailable Shanelle Barrera MD Unavailable Unavailable Marisa Crowell MD Unavailable Unavailable Marisa Crowell MD Unavailable Unavailable Marisa Crowell MD Unavailable Unavailable CedMarisa samuel MD Unavailable Unavailable Marisa Crowell MD Unavailable Unavailable Marisa Crowell MD Unavailable Unavailable Marisa Crowell MD Unavailable Unavailable Marisa Crowell MD Unavailable Unavailable Marisa Crowell MD Unavailable Unavailable Marisa Crowell MD Unavailable Unavailable Marisa Crowell MD Unavailable Unavailable Marisa Crowell MD Unavailable Unavailable Marisa Crowell MD Unavailable Unavailable CedMarisa samuel MD Unavailable Unavailable CedevonnetranMarisa zuniga MD Unavailable Unavailable Rubin, Chriss Unavailable Unavailable Rubin, Chriss Unavailable Unavailable Rubin, Chriss Unavailable Unavailable Rubin, Chriss Unavailable Unavailable Rubin, Chriss Unavailable Unavailable Nory Martinez MD Unavailable Unavailable Nory Martinez MD Unavailable Unavailable Nory Martinez MD Unavailable Unavailable Nory Martinez MD Unavailable Unavailable Nory Martinez MD Unavailable Unavailable Nory Martinez MD Unavailable Unavailable Nory Martinez MD Unavailable Unavailable Nory Martinez MD Unavailable Unavailable Nory Martinez MD Unavailable Unavailable Nory Martinez MD Unavailable Unavailable Nory Martinez MD Unavailable Unavailable Nory Martinez MD Unavailable Unavailable Nory Martinez MD Unavailable Unavailable Nory Martinez MD Unavailable Unavailable Nory Martinez MD Unavailable Unavailable Nory Martinez MD Unavailable Unavailable Nory Martinez MD Unavailable Unavailable Nory Martinez MD Unavailable Unavailable Nory Martinez MD Unavailable Unavailable Nory Martinez MD Unavailable Unavailable Nory Martinez MD Unavailable Unavailable Nory Martinez MD Unavailable Unavailable Nory Martinez MD Unavailable Unavailable Nory Martinez MD Unavailable Unavailable Nory Martinez MD Unavailable Unavailable Nory Martinez MD Unavailable Unavailable Nory Martinez MD Unavailable Unavailable Nory Martinez MD Unavailable Unavailable Nory Martinez MD Unavailable Unavailable Nory Martinez MD Unavailable Unavailable Nory Martinez MD Unavailable Unavailable Nory Martinez MD Unavailable Unavailable Nory Martinez MD Unavailable Unavailable Nory Martinez MD Unavailable Unavailable Nory Martinez MD Unavailable Unavailable Nory Martinez MD Unavailable Unavailable Nory Martinez MD Unavailable Unavailable Nory Martinez MD Unavailable Unavailable Nory Martinez MD Unavailable Unavailable Nory Martinez MD Unavailable Unavailable Nory Martinez MD Unavailable Unavailable Nory Martinez MD Unavailable Unavailable Nory Martinez MD Unavailable Unavailable Nory Martinez MD Unavailable Unavailable Nory Martinez MD Unavailable Unavailable Nory Martinez MD Unavailable Unavailable Nory Martinez MD Unavailable Unavailable Nory Martinez MD Unavailable Unavailable OUEIDA, ZAHER Unavailable Unavailable OUEIDA, ZAHER Unavailable Unavailable OUEIDA, ZAHER Unavailable Unavailable OUEIDA, ZAHER Unavailable Unavailable OUEIDA, ZAHER Unavailable Unavailable TRICIA, A HENRY MD Unavailable Unavailable TRICIA, A HENRY MD Unavailable Unavailable TRICIA, A HENRY MD Unavailable Unavailable TRICIA, A HENRY MD Unavailable Unavailable TRICIA, A HENRY MD Unavailable Unavailable TRICIA, A HENRY MD Unavailable Unavailable TRICIA, A HENRY MD Unavailable Unavailable TRICIA, A HENRY MD Unavailable Unavailable TRICIA, A HENRY MD Unavailable Unavailable TRICIA, A HENRY MD Unavailable Unavailable TRICIA, A HENRY MD Unavailable Unavailable TRICIA, A HENRY MD Unavailable Unavailable TRICIA, A HENRY MD Unavailable Unavailable TRICIA, A HENRY MD Unavailable Unavailable TRICIA, A HENRY MD Unavailable Unavailable TRICIA, A HENRY MD Unavailable Unavailable TRICIA, A HENRY MD Unavailable Unavailable TRICIA, A HENRY MD Unavailable Unavailable TRICIA, A HENRY MD Unavailable Unavailable TRICIA, A HENRY MD Unavailable Unavailable TRICIA, A HENRY MD Unavailable Unavailable TRICIA, A HENRY MD Unavailable Unavailable TRICIA, A HENRY MD Unavailable Unavailable TRICIA, A HENRY MD Unavailable Unavailable TRICIA, A HENRY MD Unavailable Unavailable TRICIA, A HENRY MD Unavailable Unavailable TRICIA, A HENRY MD Unavailable Unavailable TRICIA, A HENRY MD Unavailable Unavailable TRICIA, A HENRY MD Unavailable Unavailable TRICIA, A HENRY MD Unavailable Unavailable TRICIA, A HENRY MD Unavailable Unavailable TRICIA, A HENRY MD Unavailable Unavailable TRICIA, A HENRY MD Unavailable Unavailable TRICIA, A HENRY MD Unavailable Unavailable TRICIA, A HENRY MD Unavailable Unavailable TRICIA, A HENRY MD Unavailable Unavailable TRICIA, A HENRY MD Unavailable Unavailable TRICIA, A HENRY MD Unavailable Unavailable TRICIA, A HENRY MD Unavailable Unavailable TRICIA, A HENRY MD Unavailable Unavailable TRICIA, A HENRY MD Unavailable Unavailable TRICIA, A HENRY MD Unavailable Unavailable TRICIA, A HENRY MD Unavailable Unavailable TRICIA, A HENRY MD Unavailable Unavailable TRICIA, A HENRY MD Unavailable Unavailable Mariluz CLARKE MD Unavailable Unavailable Mariluz CLARKE MD Unavailable Unavailable Mariluz CLARKE MD Unavailable Unavailable Mariluz CLARKE MD Unavailable Unavailable Mariluz CLARKE MD Unavailable Unavailable Mariluz CLARKE MD Unavailable Unavailable Mariluz CLARKE MD Unavailable Unavailable Mariluz CLARKE MD Unavailable Unavailable Mariluz CLARKE MD Unavailable Unavailable Mariluz CLARKE MD Unavailable Unavailable Mariluz CLARKE MD Unavailable Unavailable Mariluz CLARKE MD Unavailable Unavailable Mariluz CLARKE MD Unavailable Unavailable Sumanth OSPINA MD Unavailable Sumanth OSPINA MD Unavailable Sumanth OSPINA MD Unavailable Sumanth OSPINA MD Unavailable Sumanth OSPINA MD Unavailable Nory Winter MD Unavailable Unavailable Nory Winter MD Unavailable Unavailable Nory Winter MD Unavailable Unavailable Nory Winter MD Unavailable Unavailable Nory Winter MD Unavailable Unavailable Nory Winter MD Unavailable Unavailable Nory Winter MD Unavailable Unavailable Nory Winter MD Unavailable Unavailable Nory Winter MD Unavailable Unavailable Nory Winter MD Unavailable Unavailable Nory Winter MD Unavailable Unavailable Nory Winter MD Unavailable Unavailable Nory Winter MD Unavailable Unavailable Nory Winter MD Unavailable Unavailable Nory Winter MD Unavailable Unavailable Nory Winter MD Unavailable Unavailable Nory Winter MD Unavailable Unavailable Nory Winter MD Unavailable Unavailable Nory Winter MD Unavailable Unavailable Nory Winter MD Unavailable Unavailable Nory Winter MD Unavailable Unavailable Nory Winter MD Unavailable Unavailable Nory Winter MD Unavailable Unavailable Nory Winter MD Unavailable Unavailable Nory Winter MD Unavailable Unavailable Nory Winter MD Unavailable Unavailable Nory Winter MD Unavailable Unavailable Nory Winter MD Unavailable Unavailable Nory Winter MD Unavailable Unavailable Nory Winter MD Unavailable Unavailable Nory Winter MD Unavailable Unavailable Nory Winter MD Unavailable Unavailable Nory Winter MD Unavailable Unavailable Nory Winter MD Unavailable Unavailable Nory Winter MD Unavailable Unavailable Nory Winter MD Unavailable Unavailable Nory Winter MD Unavailable Unavailable Nory Wniter MD Unavailable Unavailable Nory Winter MD Unavailable Unavailable Nory Winter MD Unavailable Unavailable Nory Winter MD Unavailable Unavailable Nory Winter MD Unavailable Unavailable Moy, M Bill MD Unavailable Unavailable Moy, M Bill MD Unavailable Unavailable Moy, M Bill MD Unavailable Unavailable Moy, M Bill MD Unavailable Unavailable Moy, M Bill MD Unavailable Unavailable Moy, M Bill MD Unavailable Unavailable Moy, M Bill MD Unavailable Unavailable Moy, M Bill MD Unavailable Unavailable Moy, M Bill MD Unavailable Unavailable Moy, M Bill MD Unavailable Unavailable Moy, M Bill MD Unavailable Unavailable Moy, M Bill MD Unavailable Unavailable BOSSMAN, DIONY MD Unavailable Unavailable BOSSMAN, DIONY MD Unavailable Unavailable BOSSMAN, DIONY MD Unavailable Unavailable BOSSMAN, DIONY MD Unavailable Unavailable BOSSMAN, DIONY MD Unavailable Unavailable BOSSMAN, DIONY MD Unavailable Unavailable BOSSMAN, DIONY MD Unavailable Unavailable BOSSMAN, DIONY MD Unavailable Unavailable BOSSMAN, DIONY MD Unavailable Unavailable EMERTON, A DEMETRIUS MD Unavailable Unavailable EMERTON, A DEMETRIUS MD Unavailable Unavailable EMERTON, A DEMETRIUS MD Unavailable Unavailable EMERTON, A DEMETRIUS MD Unavailable Unavailable EMERTON, A DEMETRIUS MD Unavailable Unavailable EMERTON, A DEMETRIUS MD Unavailable Unavailable EMERTON, A DEMETRIUS MD Unavailable Unavailable EMERTON, A DEMETRIUS MD Unavailable Unavailable EMERTON, A DEMETRIUS MD Unavailable Unavailable EMERTON, A DEMETRIUS MD Unavailable Unavailable EMERTON, A DEMETRIUS MD Unavailable Unavailable EMERTON, A DEMETRIUS MD Unavailable Unavailable EMERTON, A DEMETRIUS MD Unavailable Unavailable EMERTON, A DEMETRIUS MD Unavailable Unavailable EMERTON, A DEMETRIUS MD Unavailable Unavailable EMERTON, A DEMETRIUS MD Unavailable Unavailable EMERTON, A DEMETRIUS MD Unavailable Unavailable EMERTON, A DEMETRIUS MD Unavailable Unavailable EMERTON, A DEMETRIUS MD Unavailable Unavailable EMERTON, A DEMETRIUS MD Unavailable Unavailable EMERTON, A DEMETRIUS MD Unavailable Unavailable EMERTON, A DEMETRIUS MD Unavailable Unavailable EMERTON, A DEMETRIUS MD Unavailable Unavailable EMERTON, A DEMETRIUS MD Unavailable Unavailable EMERTON, A DEMETRIUS MD Unavailable Unavailable EMERTON, A DEMETRIUS MD Unavailable Unavailable EMERTON, A DEMETRIUS MD Unavailable Unavailable EMERTON, A DEMETRIUS MD Unavailable Unavailable EMERTON, A DEMETRIUS MD Unavailable Unavailable EMERTON, A DEMETRIUS MD Unavailable Unavailable EMERTON, A DEMETRIUS MD Unavailable Unavailable EMERTON, A DEMETRIUS MD Unavailable Unavailable EMERTON, A DEMETRIUS MD Unavailable Unavailable EMERTON, A DEMETRIUS MD Unavailable Unavailable EMERTON, A DEMETRIUS MD Unavailable Unavailable EMERTON, A DEMETRIUS MD Unavailable Unavailable EMERTON, A DEMETRIUS MD Unavailable Unavailable EMERTON, A DEMETRIUS MD Unavailable Unavailable EMERTON, A DEMETRIUS MD Unavailable Unavailable EMERTON, A DEMETRIUS MD Unavailable Unavailable EMERTON, A DEMETRIUS MD Unavailable Unavailable EMERTON, A DEMETRIUS MD Unavailable Unavailable EMERTON, A DEMTERIUS MD Unavailable Unavailable EMERTON, A DEMETRIUS MD Unavailable Unavailable EMERTON, A DEMETRIUS MD Unavailable Unavailable EMERTON, A DEMETRIUS MD Unavailable Unavailable EMERTON, A DEMETRIUS MD Unavailable Unavailable EMERTON, A DEMETRIUS MD Unavailable Unavailable EMERTON, A DEMETRIUS MD Unavailable Unavailable EMERTON, A DEMETRIUS MD Unavailable Unavailable EMERTON, A DEMETRIUS MD Unavailable Unavailable EMERTON, A DEMETRIUS MD Unavailable Unavailable EMERTON, A DEMETRIUS MD Unavailable Unavailable EMERTON, A DEMETRIUS MD Unavailable Unavailable EMERTON, A DEMETRIUS MD Unavailable Unavailable EMERTON, A DEMETRIUS MD Unavailable Unavailable EMERTON, A DEMETRIUS MD Unavailable Unavailable EMERTON, A DEMETRIUS MD Unavailable Unavailable EMERTON, A DEMETRIUS MD Unavailable Unavailable EMERTON, A DEMETRIUS MD Unavailable Unavailable EMERTON, A DEMETRIUS MD Unavailable Unavailable EMERTON, A DEMETRIUS MD Unavailable Unavailable EMERTON, A DEMETRIUS MD Unavailable Unavailable EMERTON, A DEMETRIUS MD Unavailable Unavailable EMERTON, A DEMETRIUS MD Unavailable Unavailable EMERTON, A DEMETRIUS MD Unavailable Unavailable EMERTON, A DEMETRIUS MD Unavailable Unavailable EMERTON, A DEMETRIUS MD Unavailable Unavailable EMERTON, A DEMETRIUS MD Unavailable Unavailable EMERTON, A DEMETRIUS MD Unavailable Unavailable EMERTON, A DEMETRIUS MD Unavailable Unavailable EMERTON, A DEMETRIUS MD Unavailable Unavailable EMERTON, A DEMETRIUS MD Unavailable Unavailable EMERTON, A DEMETRIUS Unavailable Unavailable ROGER, BENJAMIN PA-C Unavailable Unavailable ROGER, BENJAMIN PA-C Unavailable Unavailable ROGER, BENJAMIN PA-C Unavailable Unavailable ROGER, BENJAMIN PA-C Unavailable Unavailable ROGER, BENJAMIN PA-C Unavailable Unavailable ROGER, BENJAMIN PA-C Unavailable Unavailable ROGER, BENJAMIN PA-C Unavailable Unavailable ROGER, BENJAMIN PA-C Unavailable Unavailable ROGER, BENJAMIN PA-C Unavailable Unavailable ROGER, BENJAMIN PA-C Unavailable Unavailable ROGER, BENJAMIN PA-C Unavailable Unavailable ROGER, BENJAMIN PA-C Unavailable Unavailable ROGER, BENJMAIN PA-C Unavailable Unavailable ROGER, BENJAMIN PA-C Unavailable Unavailable ROGER, BENJAMIN PA-C Unavailable Unavailable ROGER, BENJAMIN PA-C Unavailable Unavailable ROGER, BENJAMIN PA-C Unavailable Unavailable ROGER, BENJAMIN PA-C Unavailable Unavailable ROGER, BENJAMIN PA-C Unavailable Unavailable ROGER, BENJAMIN PA-C Unavailable Unavailable ROGER, BENJAMIN PA-C Unavailable Unavailable ROGER, BENJAMIN PA-C Unavailable Unavailable ROGER, BENJAMIN PA-C Unavailable Unavailable ROGER, BENJAMIN PA-C Unavailable Unavailable ROGER, BENJAMIN PA-C Unavailable Unavailable ROGER, BENJAMIN PA-C Unavailable Unavailable ROGER, BENJAMIN PA-C Unavailable Unavailable ROGER, BENJAMIN PA-C Unavailable Unavailable ROGER, BENJAMIN PA-C Unavailable Unavailable ROGER, BENJAMIN PA-C Unavailable Unavailable ROGER, BENJAMIN PA-C Unavailable Unavailable ROGER, BENJAMIN PA-C Unavailable Unavailable ROGER, BENJAMIN PA-C Unavailable Unavailable ROGER, BENJAMIN PA-C Unavailable Unavailable ROGER, BENJAMIN PA-C Unavailable Unavailable Juanpablo Jones MD Unavailable Unavailable Juanpablo Jones MD Unavailable Unavailable Juanpablo Jones MD Unavailable Unavailable Juanpablo Jones MD Unavailable Unavailable Juanpablo Jones MD Unavailable Unavailable Juanpablo Jones MD Unavailable Unavailable Juanpablo Jones MD Unavailable Unavailable Juanpablo Jones MD Unavailable Unavailable Juanpablo Jones MD Unavailable Unavailable Juanpablo Jones MD Unavailable Unavailable Juanpablo Jones MD Unavailable Unavailable Juanpablo Jones MD Unavailable Unavailable Juanpablo Jones MD Unavailable Unavailable Juanpablo Jones MD Unavailable Unavailable Juanpablo Jones MD Unavailable Unavailable Juanpablo Jones MD Unavailable Unavailable Juanpablo Jones MD Unavailable Unavailable Juanpablo Jones MD Unavailable Unavailable Juanpablo Jones MD Unavailable Unavailable Juanpablo Jones MD Unavailable Unavailable Juanpablo Jones MD Unavailable Unavailable Juanpablo Jones MD Unavailable Unavailable Juanpablo Jones MD Unavailable Unavailable Juanpablo Jones MD Unavailable Unavailable Juanpablo Jones MD Unavailable Unavailable Juanpablo Jones MD Unavailable Unavailable Juanpablo Jones MD Unavailable Unavailable Juanpablo Jones MD Unavailable Unavailable Juanpablo Jones MD Unavailable Unavailable Juanpablo Jones MD Unavailable Unavailable Juanpablo Jones MD Unavailable Unavailable Juanpablo Jones MD Unavailable Unavailable Juanpablo Jones MD Unavailable Unavailable Juanpablo Jones MD Unavailable Unavailable Juanpablo Jones MD Unavailable Unavailable Juanpablo Jones MD Unavailable Unavailable Juanpablo Jones MD Unavailable Unavailable Juanpablo Jones MD Unavailable Unavailable Juanpablo Jones MD Unavailable Unavailable Juanpablo Jones MD Unavailable Unavailable Juanpablo Jones MD Unavailable Unavailable Juanpablo Jones MD Unavailable Unavailable Juanpablo Jones MD Unavailable Unavailable Juanpablo Jones MD Unavailable Unavailable Juanpablo Jones MD Unavailable Unavailable Juanpablo Jones MD Unavailable Unavailable Juanpablo Jones MD Unavailable Unavailable Juanpablo Jones MD Unavailable Unavailable Juanpablo Jones MD Unavailable Unavailable Juanpablo Jones MD Unavailable Unavailable Juanpablo Jones MD Unavailable Unavailable Juanpablo Jones MD Unavailable Unavailable Juanpablo Jones MD Unavailable Unavailable Juanpablo Jones MD Unavailable Unavailable Juanpablo Jones MD Unavailable Unavailable Juanpablo Jones MD Unavailable Unavailable Juanpablo Jones MD Unavailable Unavailable Juanpablo Jones MD Unavailable Unavailable Juanpablo Jones MD Unavailable Unavailable Juanpablo Jones MD Unavailable Unavailable Juanpablo Jones MD Unavailable Unavailable Juanpablo Jones MD Unavailable Unavailable Juanpablo Jones MD Unavailable Unavailable Juanpablo Jones MD Unavailable Unavailable Juanpablo Jones MD Unavailable Unavailable Juanpablo Jones MD Unavailable Unavailable Juanpablo Jones MD Unavailable Unavailable Juanpablo Jones MD Unavailable Unavailable Juanpablo Jones MD Unavailable Unavailable Juanpbalo Jones MD Unavailable Unavailable Karen, Juanpablo Escamilla MD Unavailable Unavailable Karen, Juanpablo Escamilla MD Unavailable Unavailable Karen, Juanpablo Escamilla MD Unavailable Unavailable Karen, Juanpablo Escamilla MD Unavailable Unavailable Karen, Juanpablo Escamilla MD Unavailable Unavailable Karen, Juanpablo Escamilla MD Unavailable Unavailable Saskia, M Cleo PA Unavailable Unavailable Saskia, M Cleo PA Unavailable Unavailable Saskia, M Cleo PA Unavailable Unavailable Saskia, M Cleo PA Unavailable Unavailable Saskia, M Cleo PA Unavailable Unavailable Saskia, M Cleo PA Unavailable Unavailable Saskia, M Cleo PA Unavailable Unavailable Saskia, M Cleo PA Unavailable Unavailable Saskia, M Cleo PA Unavailable Unavailable Saskia, M Cleo PA Unavailable Unavailable Saskia, M Cleo PA Unavailable Unavailable Saskia, M Cleo PA Unavailable Unavailable Saskia, M Cleo PA Unavailable Unavailable Saskia, M Cleo PA Unavailable Unavailable Saskia, M Cleo PA Unavailable Unavailable Saskia, M Cleo PA Unavailable Unavailable Saskia, M Cleo PA Unavailable Unavailable Saskia, M Cleo PA Unavailable Unavailable Saskia, M Cleo PA Unavailable Unavailable Saskia, M Cleo PA Unavailable Unavailable Saskia, M Cleo PA Unavailable Unavailable Saskia, M Cleo PA Unavailable Unavailable Saskia, M Cleo PA Unavailable Unavailable Saskia, M Cleo PA Unavailable Unavailable Saskia, M Cleo PA Unavailable Unavailable Saskia, M Cleo PA Unavailable Unavailable Saskia, M Cleo PA Unavailable Unavailable Saskia, M Cleo PA Unavailable Unavailable Saskia, M Cleo PA Unavailable Unavailable Saskia, M Cleo PA Unavailable Unavailable Saskia, M Cleo PA Unavailable Unavailable Saskia, M Cleo PA Unavailable Unavailable Saskia, M Cleo PA Unavailable Unavailable Saskia, M Cleo PA Unavailable Unavailable Saskia, M Cleo PA Unavailable Unavailable Saskia, M Cleo PA Unavailable Unavailable Saskia, M Cleo PA Unavailable Unavailable Saskia, M Cleo PA Unavailable Unavailable Saskia, M Cleo PA Unavailable Unavailable Saskia, M Cleo PA Unavailable Unavailable Saskia, M Cleo PA Unavailable Unavailable Saskia, M Cleo PA Unavailable Unavailable Saskia, M Cleo PA Unavailable Unavailable Saskia, M Cleo PA Unavailable Unavailable Re-disclosure Warning The records that you are about to access may contain information from federally-assisted alcohol or drug abuse programs. If such information is present, then the following federally mandated warning applies: This information has been disclosed to you from records protected by federal confidentiality rules (42 CFR part 2). The federal rules prohibit you from making any further disclosure of this information unless further disclosure is expressly permitted by the written consent of the person to whom it pertains or as otherwise permitted by 42 CFR part 2. A general authorization for the release of medical or other information is NOT sufficient for this purpose. The Federal rules restrict any use of the information to criminally investigate or prosecute any alcohol or drug abuse patient.The records that you are about to access may contain highly sensitive health information, the redisclosure of which is protected by Article 27-F of the [facility] Public Health law. If you continue you may have access to information: Regarding HIV / AIDS; Provided by facilities licensed or operated by the [facility] Office of Mental Health; or Provided by the [facility] Office for People With Developmental Disabilities. If such information is present, then the following [facility] mandated warning applies: This information has been disclosed to you from confidential records which are protected by state law. State law prohibits you from making any further disclosure of this information without the specific written consent of the person to whom it pertains, or as otherwise permitted by law. Any unauthorized further disclosure in violation of state law may result in a fine or detention sentence or both. A general authorization for the release of medical or other information is NOT sufficient authorization for further disc losure. Allergies and Adverse Reactions Type Description Substance Reaction Status Data Source(s ) Drug Class NO KNOWN ALLERGIES NO KNOWN ALLERGIES [facility] No Known Drug Allergies No Known Drug Allergies No Known Drug Aller gies active [facility] [facility] Encounters Encounter Providers Location Date Indications Data Source(s ) Outpatient Attender: Yosef Barrera MD 03/16/2022 12:00:00 AM ED [facility] Unknown [address] [facility] [address] 08/05/2020 12:00:00 AM EST eCW1 ([facility]) Outpatient [address] [facility] [address] 08/05/2020 12:00:00 AM EST eCW1 ([facility]) Outpatient [address] [facility] [address] 07/16/2020 12:00:00 AM EST eCW1 ([facility]) [place]patient [address] [facility] [address] 06/27/2020 12:00:00 AM EST eCW1 ([facility]) Outpatient [address] [facility] [address] 06/20/2020 12:00:00 AM EST eCW1 ([facility]) Unknown [address] [facility] [address] 05/29/2020 12:00:00 AM EST eCW1 ([facility]) Unknown [address] [facility] [address] 05/29/2020 12:00:00 AM EST eCW1 ([facility]) Outpatient [address] [facility] [address] 05/20/2020 12:00:00 AM EST eCW1 ([facility]) Unknown [address] [facility] [address] 05/20/2020 12:00:00 AM EST eCW1 ([facility]) Outpatient [address] [facility] [address] 04/05/2020 12:00:00 AM EDT eCW1 ([facility]) Outpatient [address] [facility] [address] 03/26/2020 12:00:00 AM EDT eCW1 ([facility]) Unknown [address] [facility] [address] 03/26/2020 12:00:00 AM EDT eCW1 ([facility]) Office Visit Attender: Andi Jones MD Main office - [facility] 03/25/2020 01:15:00 PM EDT MEDENT ([facility]) Outpatient Attender: Yosef Barrera MD [id number] 03/11/2020 12:00:00 AM EDT Discitis, unspecified, lumbar [facility] Discitis, unspecified, lumbar region Outpatient Referrer: Yosef Barrera MD 03/11/2020 12:00:00 AM EDT Discitis, unspecified, lumbar region [facility] Discitis, unspecified, lumbar region Outpatient Attender: Marii Calderon/Hal/Anthony/ Abbey 01/15/2020 03:15:00 PM EDT MEDENT ([facility]) Outpatient [address] [facility] [address] 01/09/2020 12:00:00 AM EDT eCW1 ([facility]) Unknown [address] [facility] [address] 01/09/2020 12:00:00 AM EDT [facility]CW1 [facility] Outpatient Attender: Andi Jones MD Main office [facility] 12/25/2019 09:00:00 AM EDT MEDENT ([facility], ) [facility] [address] [facility] [address] 12/19/2019 12:00:00 AM EDT eCW1 ([facility]) Unknown [address] [facility] [address] 12/12/2019 12:00:00 AM EDT eCW1 ([facility]) Outpatient Attender: HENRY CLARKE MD 12/12/2019 12:00:0 0 AM EDT [facility] Unknown [address] [facility] [address] 12/11/2019 12:00:00 AM EDT eCW1 ([facility]) Unknown [address] [facility] [address] 12/11/2019 12:00:00 AM EDT eCW1 ([facility]) Unknown [address] [facility] [address] 12/08/2019 12:00:00 AM EDT eCW1 ([facility]) Unknown [address] [facility] [address] 12/08/2019 12:00:00 AM EDT eCW1 [facility] Outpatient Referrer: DEMETRIUS PERSON MD 12/07/2019 06:08:00 AM EDT [facility] Outpatient Attender: Bill Winter MD 12/06/2019 12:00:00 A M EDT [facility] Unknown [address] [facility] [address] 12/04/2019 12:00:00 AM EDT eCW1 ([facility]) 11/26/2019 01:00:00 AM EDT - 020 09:15:59 AM EDT NETSMART ([facility]) Outpatient Attender: Bill Winter MD 11/22/2019 12:00:00 A M [facility] Urology [address] [place] [address], [facility] [address] 11/16/2019 12:00:00 AM EDT eCW1 ([facility]) [facility] Center [address] [place] [address] 10/19/2019 12:00:00 AM EDT eCW1 ([facility]) [facility] [address] [facility] [place] [address] 10/17/2019 12:00:00 AM EDT eCW1 ([facility]) [facility]rology [address] [place] [address] [place] [address] 09/15/2019 12:00:00 AM EDT eCW1 ([facility]) [facility]rology [address] [place] [address] [place] [address] 09/13/2019 12:00:00 AM EDT eCW1 ([facility]) Outpatient Referrer: Yosef Barrera MD 09/08/2019 12:00:00 AM EDT Discitis, unspecified, lumbar region [facility] Discitis, unspecified, lumbar region Outpatient Attender: Yosef Barrera MD [id number] 09/08/2019 12:00:00 AM [facility] Outpatient Attender: Yosef Barrera MD 09/04/2019 12:00:00 AM [facility] [address] [facility] [address] 08/23/2019 12:00:00 AM EST eCW1 ([facility]) [facility] 08/14/2019 12:00:00 AM EST eCW1 ([facility]) Outpatient Referrer: DEMETRIUS PERSON MD 07/25/2019 12:16:00 PM EST [facility] Outpatient Attender: BENJAMIN Hurtadoferrer: DONNA VELEZ [id number] 07/24/2019 12:00:00 AM EST - 07/24/2019 11:56:58 AM EST [facility] Outpatient Attender: Yosef Barrera MD [id number] 07/21/2019 12:00:00 AM E [facility] C ENTER 07/21/2019 12:00:00 AM EST eCW1 ([facility]) Outpatient Attender: Christopher Martinez MDReferrer: Christopher Martinez MDConsultant: Christopher Martinez MD 07/18/2019 01:14:0 0 PM EST - 07/18/2019 01:24:00 PM EST [facility] C ENTER 07/13/2019 12:00:00 AM EST eCW1 ([facility]) Outpatient Attender: Christopher Martinez MDReferrer: Christopher Martinez MDConsultant: Christopher Martinez MD 07/10/2019 10:52:0 0 AM EST - 07/10/2019 11:02:00 AM EST [facility] Outpatient Attender: BENJAMIN Hurtadoferrer: DONNA VELEZ [id number] 07/10/2019 12:00:00 AM EST - 07/10/2019 02:15:44 PM EST Extradural and subdural abscess, unspecified [facility] Extradural and subdural abscess, unspeci fied [facility] C ENTER 07/04/2019 12:00:00 AM EST eCW1 ([facility]) Outpatient Attender: Christopher Martinez MDReferrer: Christopher Martinez MDConsultant: Christopher Martinez MD 07/03/2019 04:12:0 0 PM EST - 07/03/2019 04:22:[address] [facility] Outpatient Attender: Bill Winter MD 06/30/2019 09:29:00 A M [facility] Outpatient Referrer: DEMETRIUS PERSON MD 06/30/2019 08:20:00 AM EST [facility] 06/30/2019 12: 00:00 AM EST eCW1 ([facility]) Outpatient Attender: Christopher Martinez MDReferrer: Christopher Martinez MDConsultant: Christopher Martinez MD 06/29/2019 03:38:0 0 PM EST - 06/29/2019 03:48:[address] [facility] Outpatient Attender: Christopher Martinez MDReferrer: Christopher Martinez MDConsultant: Christopher Martinez MD 06/26/2019 02:46:0 0 PM EST - 06/26/2019 02:56:[address] [facility] Outpatient Referrer: Cleo GALLAGHER 06/23/2019 12 :00:00 AM EST Extradural and subdural abscess, unspecified [facility] Extradural and subdural abscess, unspeci fied Outpatient Attender: Yosef Barrera MD [id number] 06/23/2019 12:00:00 AM E [facility] Outpatient Attender: Christopher Martinez MDReferrer: Christopher Martinez MDConsultant: Christopher Martinez MD 06/19/2019 03:51:0 0 PM EST - 06/19/2019 04:01:[address] [facility] 06/16/2019 12:00:00 AM EST - 020 11:07:[address] [facility] Inpatient Attender: Chriss Chirinos tatyana: DONNA OLIVOAttender: DIONY KEITA MDAttender: MIMI OSPINA MDAdmitter: DIONY KEITA MDReferrer: DIONY KEITA MD [id number] 06/10/2019 12:00:00 AM EST - 06/15/2019 12:00:00 AM ES T Discitis, unspecified, lumbar region [facility] Discitis, unspecified, lumbar region Patient discharged. Immunizations Vaccine Date Status Description Data Source(s) New in 2011. IIV4 03/11/2020 09:16:00 AM EDT completed eCW1 ([facility]) New in 2011. IIV4 03/11/2020 09:16:00 AM EDT completed eCW1 ([facility]) New in 2011. IIV4 03/11/2020 09:16:00 AM EDT completed eCW1 ([facility]) New in 2011. IIV4 03/11/2020 09:16:00 AM EDT completed eCW1 ([facility]) New in 2011. IIV4 03/11/2020 09:16:00 AM EDT completed eCW1 ([facility]) New in 2011. IIV4 06/14/2019 12:00:00 AM EST completed In fluenza Quad IM Pres Free (0.5 mL dose) 06/14/2019 [facility] Medications Medication Brand Name Start Date Product Form Dose Route Admi nistrative Instructions Pharmacy Instructions Status Indications Reaction Description Data Source(s) 100 mcg/0.5 mL 07/15/2020 12:00:00 AM EST suspension 0 INJECT BY [facility] (FIRST DOSE) INJECT BY [facility] (FIRST DOSE) SOLD: 07/15/2020 [facility] 250 mg 06/29/2020 12:00:00 AM EST tablet 7 TAKE ONE TABLET BY MOUTH DAILY TAKE ONE TABLET BY MOUTH DAILY SOLD: 06/29/2020 [facility] 2.5 mg 06/29/2020 12:00:00 AM EST tablet 180 TAKE ONE TABLET BY MOUTH TWICE A DAY TAKE ONE TABLET BY MOUTH TWICE A DAY SOLD: 06/29/2020 [facility] atorvastatin 40 MG Oral Tablet ATORVASTATIN CALCIUM 06/29/2020 1 2:00:00 AM EST tablet 90 TAKE ONE TABLET BY MOUTH EVERY D AY TAKE ONE TABLET BY MOUTH EVERY DAY SOLD: 06/29/2020 [facility] 100 mg 06/27/2020 12:00:00 AM EST capsule 10 TAKE ONE CAPSULE BY MOUTH TWICE A DAY FOR UTI TAKE ONE CAPSULE BY MOUTH TWICE A DAY FOR UTI SOLD: 06/27/2020 [facility] 10 mg 06/10/2020 12:00:00 AM EST tablet 90 TAKE ONE TABLET BY MOUTH EVERY DAY TAKE ONE TABLET BY MOUTH EVERY DAY SOLD: 06/13/2020 [facility] Sulfamethoxazole 800 MG / Trimethoprim 160 MG Oral Tab let 800-160 mg SULFAMETHOXAZOLE/TRIMETHOPRIM 06/01/2020 12:00:00 AM EST tablet 14 TAKE ONE TABLET BY MOUTH TWICE A DAY FOR 7 DAYS TAKE ONE TABLET BY MOUTH TWICE A DAY FOR 7 DAYS SOLD: 06/02/2020 [facility] 31 gauge x 1/4" 05/20/2020 12:00:00 AM EST needle 100 USE DIRECTED ONCE DAILY USE DIRECTED ONCE DAILY SOLD: 05/21/2020 [facility] Metformin hydrochloride 1000 MG Oral Tablet 1,000 mg METFORM IN HCL 04/09/2020 12:00:00 AM EDT tablet 180 TAKE ONE TABLET BY MOUTH TWICE A DAY WITH MEALS TAKE ONE TABLET BY MOUTH TWICE A DAY WITH MEALS SOLD: 04/13/2020 [facility] Metformin hydrochloride 1000 MG Oral Tablet 1,000 mg METFORM IN HCL 04/09/2020 12:00:00 AM EDT tablet 180 TAKE ONE TABLET BY MOUTH TWICE A DAY WITH MEALS TAKE ONE TABLET BY MOUTH TWICE A DAY WITH MEALS SOLD: 07/12/2020 [facility] Sulfamethoxazole 800 MG / Trimethoprim 160 MG Oral Tab let 800-160 mg SULFAMETHOXAZOLE/TRIMETHOPRIM 04/05/2020 12:00:00 AM EDT tablet 20 TAKE ONE TABLET BY MOUTH TWICE A DAY FOR 10 DAYS TAKE ONE TABLET BY MOUTH TWICE A DAY FOR 10 DAYS SOLD: 04/05/2020 [facility] Sulfamethoxazole 800 MG / Trimethoprim 1 60 MG Oral Tablet [Bactrim] Bactrim DS 800-160 MG Bactrim DS 800-160 MG 04/05/2020 12:00:00 AM EDT 1.0 {table t} suspended Bactrim DS 800-160 MG eCW1 ( [facility]) Sulfamethoxazole 800 MG / Trimethoprim 1 60 MG Oral Tablet [Bactrim] Bactrim DS 800-160 MG Bactrim DS 800-160 MG 04/05/2020 12:00:00 AM EDT 1.0 {table t} active Bactrim DS 800-160 MG eCW1 ( [facility]) Sulfamethoxazole 800 MG / Trimethoprim 1 60 MG Oral Tablet [Bactrim] Bactrim DS 800-160 MG Bactrim DS 800-160 MG 04/05/2020 12:00:00 AM EDT 1.0 {table t} active Bactrim DS 800-160 MG eCW1 ( [facility]) Sulfamethoxazole 800 MG / Trimethoprim 1 60 MG Oral Tablet [Bactrim] Bactrim DS 800-160 MG Bactrim DS 800-160 MG 04/05/2020 12:00:00 AM EDT 1.0 {table t} suspended Bactrim DS 800-160 MG eCW1 ( [facility]) Sulfamethoxazole 800 MG / Trimethoprim 1 60 MG Oral Tablet [Bactrim] Bactrim DS 800-160 MG Bactrim DS 800-160 MG 04/05/2020 12:00:00 AM EDT 1.0 {table t} active Bactrim DS 800-160 MG eCW1 ( [facility]) Sulfamethoxazole 800 MG / Trimethoprim 1 60 MG Oral Tablet [Bactrim] Bactrim DS 800-160 MG Bactrim DS 800-160 MG 04/05/2020 12:00:00 AM EDT 1.0 {table t} suspended Bactrim DS 800-160 MG eCW1 ( [facility]) Sulfamethoxazole 800 MG / Trimethoprim 1 60 MG Oral Tablet [Bactrim] Bactrim DS 800-160 MG Bactrim DS 800-160 MG 04/05/2020 12:00:00 AM EDT 1.0 {table t} suspended Bactrim DS 800-160 MG eCW1 ( [facility]) Sulfamethoxazole 800 MG / Trimethoprim 1 60 MG Oral Tablet [Bactrim] Bactrim DS 800-160 MG Bactrim DS 800-160 MG 04/05/2020 12:00:00 AM EDT 1.0 {table t} active Bactrim DS 800-160 MG eCW1 ( [facility]) Sulfamethoxazole 800 MG / Trimethoprim 1 60 MG Oral Tablet [Bactrim] Bactrim DS 800-160 MG Bactrim DS 800-160 MG 04/05/2020 12:00:00 AM EDT 1.0 {table t} active Bactrim DS 800-160 MG eCW1 ( [facility]) Sulfamethoxazole 800 MG / Trimethoprim 1 60 MG Oral Tablet [Bactrim] Bactrim DS 800-160 MG Bactrim DS 800-160 MG 04/05/2020 12:00:00 AM EDT 1.0 {table t} active Bactrim DS 800-160 MG eCW1 ( [facility]) 100 mg 03/11/2020 12:00:00 AM EDT tablet 90 TAKE ONE TABLET BY MOUTH EVERY DAY TAKE ONE TABLET BY MOUTH EVERY DAY SOLD: 03/14/2020 [facility] 100 mg 03/11/2020 12:00:00 AM EDT tablet 90 TAKE ONE TABLET BY MOUTH EVERY DAY TAKE ONE TABLET BY MOUTH EVERY DAY SOLD: 06/13/2020 [facility] Finasteride 5 MG Oral Tablet Finasteride 5 MG Oral Tab let (PROSCAR) Finasteride 5 MG Oral Tablet (PROSCAR) 03/07/2020 12:00:00 AM EDT [facility] 20 mg 02/27/2020 12:00:00 AM EDT capsule,delayed release (DR/EC) 90 TAKE ONE CAPSULE BY MOUTH EVERY DAY BEFORE A MEAL TAKE ONE CAPSULE BY MOUTH EVERY DAY BEFORE A MEAL SOLD: 03/01/2020 [facility] 20 mg 02/27/2020 12:00:00 AM EDT capsule,delayed release (DR/EC) 90 TAKE ONE CAPSULE BY MOUTH EVERY DAY BEFORE A MEAL TAKE ONE CAPSULE BY MOUTH EVERY DAY BEFORE A MEAL SOLD: 05/21/2020 [facility] Finasteride 5 MG Oral Tablet FINASTERIDE 01/09/2020 12:00:00 AM EDT ta blet 30 TAKE ONE TABLET BY MOUTH ONCE DAILY TAKE ONE TABLET BY MOUTH ONCE DAILY SOLD: 07/07/2020 [facility] Finasteride 5 MG Oral Tablet [Proscar] Proscar 5 MG Proscar 5 MG 01/09/2020 12:00:00 AM EDT 1.0 {tablet} active Pr lian 5 MG eCW1 ([facility]) Finasteride 5 MG Oral Tablet [Proscar] Proscar 5 MG Proscar 5 MG 01/09/2020 12:00:00 AM EDT 1.0 {tablet} active Pr lian 5 MG eCW1 ([facility]) Finasteride 5 MG Oral Tablet FINASTERIDE 01/09/2020 12:00:00 AM EDT ta blet 30 TAKE ONE TABLET BY MOUTH ONCE DAILY TAKE ONE TABLET BY MOUTH ONCE DAILY SOLD: 03/08/2020 [facility] Finasteride 5 MG Oral Tablet [Proscar] Proscar 5 MG Proscar 5 MG 01/09/2020 12:00:00 AM EDT 1.0 {tablet} active Pr lian 5 MG eCW1 ([facility]) Finasteride 5 MG Oral Tablet FINASTERIDE 01/09/2020 12:00:00 AM EDT ta blet 30 TAKE ONE TABLET BY MOUTH ONCE DAILY TAKE ONE TABLET BY MOUTH ONCE DAILY SOLD: 06/02/2020 [facility] Finasteride 5 MG Oral Tablet [Proscar] Proscar 5 MG Proscar 5 MG 01/09/2020 12:00:00 AM EDT 1.0 {tablet} active Pr lian 5 MG eCW1 ([facility]) Finasteride 5 MG Oral Tablet [Proscar] Proscar 5 MG Proscar 5 MG 01/09/2020 12:00:00 AM EDT 1.0 {tablet} active Pr lian 5 MG eCW1 ([facility]) Finasteride 5 MG Oral Tablet [Proscar] Proscar 5 MG Proscar 5 MG 01/09/2020 12:00:00 AM EDT 1.0 {tablet} active Pr lian 5 MG eCW1 ([facility]) Finasteride 5 MG Oral Tablet [Proscar] Proscar 5 MG Proscar 5 MG 01/09/2020 12:00:00 AM EDT 1.0 {tablet} active Pr lian 5 MG eCW1 ([facility]) Finasteride 5 MG Oral Tablet FINASTERIDE 01/09/2020 12:00:00 AM EDT ta blet 30 TAKE ONE TABLET BY MOUTH ONCE DAILY TAKE ONE TABLET BY MOUTH ONCE DAILY SOLD: 01/10/2020 [facility] Finasteride 5 MG Oral Tablet [Proscar] Proscar 5 MG Proscar 5 MG 01/09/2020 12:00:00 AM EDT 1.0 {tablet} active Pr lian 5 MG eCW1 ([facility]) Finasteride 5 MG Oral Tablet [Proscar] Proscar 5 MG Proscar 5 MG 01/09/2020 12:00:00 AM EDT 1.0 {tablet} active Pr lian 5 MG eCW1 ([facility]) Finasteride 5 MG Oral Tablet FINASTERIDE 01/09/2020 12:00:00 AM EDT ta blet 30 TAKE ONE TABLET BY MOUTH ONCE DAILY TAKE ONE TABLET BY MOUTH ONCE DAILY SOLD: 05/07/2020 [facility] Finasteride 5 MG Oral Tablet [Proscar] Proscar 5 MG Proscar 5 MG 01/09/2020 12:00:00 AM EDT 1.0 {tablet} active Pr lian 5 MG eCW1 ([facility]) Finasteride 5 MG Oral Tablet FINASTERIDE 01/09/2020 12:00:00 AM EDT ta blet 30 TAKE ONE TABLET BY MOUTH ONCE DAILY TAKE ONE TABLET BY MOUTH ONCE DAILY SOLD: 04/05/2020 [facility] Finasteride 5 MG Oral Tablet FINASTERIDE 01/09/2020 12:00:00 AM EDT ta blet 30 TAKE ONE TABLET BY MOUTH ONCE DAILY TAKE ONE TABLET BY MOUTH ONCE DAILY SOLD: 08/05/2020 [facility] Finasteride 5 MG Oral Tablet [Proscar] Proscar 5 MG Proscar 5 MG 01/09/2020 12:00:00 AM EDT 1.0 {tablet} active Pr lian 5 MG eCW1 ([facility]) Finasteride 5 MG Oral Tablet FINASTERIDE 01/09/2020 12:00:00 AM EDT ta blet 30 TAKE ONE TABLET BY MOUTH ONCE DAILY TAKE ONE TABLET BY MOUTH ONCE DAILY SOLD: 02/09/2020 [facility] Finasteride 5 MG Oral Tablet [Proscar] Proscar 5 MG Proscar 5 MG 01/09/2020 12:00:00 AM EDT 1.0 {tablet} active Pr lian 5 MG eCW1 ([facility]) Finasteride 5 MG Oral Tablet [Proscar] Proscar 5 MG Proscar 5 MG 01/09/2020 12:00:00 AM EDT 1.0 {tablet} active Pr lian 5 MG eCW1 ([facility]) Finasteride 5 MG Oral Tablet [Proscar] Proscar 5 MG Proscar 5 MG 01/09/2020 12:00:00 AM EDT 1.0 {tablet} active Pr lian 5 MG eCW1 ([facility]) atorvastatin 40 MG Oral Tablet ATORVASTATIN CALCIUM 12/25/2019 1 2:00:00 AM EDT tablet 90 TAKE ONE TABLET BY MOUTH EVERY D AY TAKE ONE TABLET BY MOUTH EVERY DAY SOLD: 03/26/2020 [facility] atorvastatin 40 MG Oral Tablet ATORVASTATIN CALCIUM 12/25/2019 1 2:00:00 AM EDT tablet 90 TAKE ONE TABLET BY MOUTH EVERY D AY TAKE ONE TABLET BY MOUTH EVERY DAY SOLD: 12/25/2019 [facility] atorvastatin 40 MG Oral Tablet Atorvastatin Calcium 40 MG Oral Tablet (LIPITOR) Atorvastatin Calcium 40 MG Oral Tablet (LIPITOR) 12/25/2019 12:00:00 AM EDT 40 mg Oral active Take 40 mg by mouth [facility] 2.5 mg 12/20/2019 12:00:00 AM EDT tablet 180 TAKE ONE TABLET BY MOUTH TWICE A DAY TAKE ONE TABLET BY MOUTH TWICE A DAY SOLD: 12/21/2019 [facility] 2.5 mg 12/20/2019 12:00:00 AM EDT tablet 60 TAKE ONE TABLET BY MOUTH TWICE A DAY TAKE ONE TABLET BY MOUTH TWICE A DAY SOLD: 05/28/2020 [facility] 2.5 mg 12/20/2019 12:00:00 AM EDT tablet 60 TAKE ONE TABLET BY MOUTH TWICE A DAY TAKE ONE TABLET BY MOUTH TWICE A DAY SOLD: 03/24/2020 [facility] 2.5 mg 12/20/2019 12:00:00 AM EDT tablet 60 TAKE ONE TABLET BY MOUTH TWICE A DAY TAKE ONE TABLET BY MOUTH TWICE A DAY SOLD: 04/26/2020 [facility] apixaban 2.5 MG Oral Tablet [Eliquis] Eliquis 2.5 MG O ral Tablet Eliquis 2.5 MG Oral Tablet 12/20/2019 12:00:00 AM EDT 2.5 mg Oral active Take 2.5 mg by mouth Two Times Daily [facility] 10 mg 12/18/2019 12:00:00 AM EDT tablet 90 TAKE ONE TABLET BY MOUTH EVERY DAY TAKE ONE TABLET BY MOUTH EVERY DAY SOLD: 03/24/2020 [facility] 10 mg 12/18/2019 12:00:00 AM EDT tablet 90 TAKE ONE TABLET BY MOUTH EVERY DAY TAKE ONE TABLET BY MOUTH EVERY DAY SOLD: 12/20/2019 [facility] Amlodipine 10 MG Oral Tablet amLODIPine Besylate 10 MG Oral Tablet (NORVASC) amLODIPine Besylate 10 MG Oral Tablet (NORVASC) 12/18/2019 12:00:00 AM EDT active [facility] Cephalexin 250 MG Cephalexin 12/15/2019 01:00:00 AM EDT completed NETSMART ([facility] ) 250 mg 12/15/2019 12:00:00 AM EDT capsule 40 TAKE ONE CAPSULE BY MOUTH FOUR TIMES A DAY FOR 10 DAYS TAKE ONE CAPSULE BY MOUTH FOUR TIMES A DAY FOR 10 DAYS SOLD: 12/15/2019 [facility] Tamsulosin HCl 0.4 MG Tamsulosin HCl 11/26/2019 01:00:00 AM EDT 0.4 {mg} completed NETSMART ([facility]) MetFORMIN HCl 1000 MG MetFORMIN HCl 11/26/2019 01:00:00 AM EDT completed NETSMART ([facility]) Pravastatin Sodium 20 MG Pravastatin Sodium 11/26/2019 01:00:00 AM EDT completed NETSMART ([facility]) Atorvastatin Calcium 40 MG Atorvastatin Calcium 11/26/2019 01:00:00 A M EDT completed NETSMART ( [facility]) Losartan Potassium-HCTZ 100-12.5 MG Losartan Potassium-HCTZ 11/26/2019 01:00:00 AM EDT completed NETSMAR T ([facility]) Eliquis 2.5 MG Eliquis 11/26/2019 01:00:00 AM EDT 0 {mg} completed NETSMART ([facility] ) Insulin Detemir 100 UNIT/ML Insulin Detemir 11/26/2019 01:00:00 AM EDT 8.0 {unit} completed NETSMART ([facility]) B12 Folate 800-800 MCG B12 Folate 11/26/2019 01:00:00 AM EDT completed NETSMART ([facility]) Daily Multivitamin Daily Multivitamin 11/26/2019 01:00:00 AM EDT completed NETSMART ([facility]) Omeprazole 20 MG Omeprazole 11/26/2019 01:00:00 AM EDT completed NETSMART ([facility] ) Iron (Ferrous Sulfate) 142 (45 Fe) MG Iron (Ferrous Sulfate) 11/26/2019 01:00:00 AM EDT completed NETSMA RT ([facility]) 40 mg 11/23/2019 12:00:00 AM EDT tablet 30 TAKE ONE TABLET BY MOUTH EVERY DAY AT BEDTIME TAKE ONE TABLET BY MOUTH EVERY DAY AT BEDTIME SOLD: 11/23/2019 [facility] 10 mg 11/23/2019 12:00:00 AM EDT tablet 30 TAKE ONE TABLET BY MOUTH EVERY DAY TAKE ONE TABLET BY MOUTH EVERY DAY SOLD: 11/23/2019 [facility] 2.5 mg 11/23/2019 12:00:00 AM EDT tablet 60 TAKE ONE TABLET BY MOUTH TWICE A DAY TAKE ONE TABLET BY MOUTH TWICE A DAY SOLD: 11/23/2019 [facility] AmLODIPine Besylate 10 MG AmLODIPine Besylate 11/22/2019 01:00:00 A M EDT 0 {mg} completed NETSMART ([facility]) 20 mg 11/13/2019 12:00:00 AM EDT tablet 90 TAKE ONE TABLET BY MOUTH EVERY DAY TAKE ONE TABLET BY MOUTH EVERY DAY SOLD: 11/16/2019 [facility] 500 mg 10/17/2019 12:00:00 AM EDT capsule 20 TAKE ONE CAPSULE BY MOUTH EVERY 12 HOURS TAKE ONE CAPSULE BY MOUTH EVERY 12 HOURS SOLD: 10/17/2019 [facility] 1,000 mg 10/04/2019 12:00:00 AM EDT tablet 180 TAKE 1 TABLET BY MOUTH TWO TIMES A DAY WITH MEALS TAKE 1 TABLET BY MOUTH TWO TIMES A DAY WITH MEALS SOLD : 10/07/2019 [facility] 32 gauge x 1/4" 10/04/2019 12:00:00 AM EDT needle 100 USE DIRECTED ONCE DAILY USE DIRECTED ONCE DAILY SOLD: 10/07/2019 [facility] 32 gauge x 1/4" 10/04/2019 12:00:00 AM EDT needle 100 USE DIRECTED ONCE DAILY USE DIRECTED ONCE DAILY SOLD: 02/09/2020 [facility] 1,000 mg 10/04/2019 12:00:00 AM EDT tablet 180 TAKE 1 TABLET BY MOUTH TWO TIMES A DAY WITH MEALS TAKE 1 TABLET BY MOUTH TWO TIMES A DAY WITH MEALS SOLD : 01/08/2020 [facility] 100 mg 09/20/2019 12:00:00 AM EDT tablet 90 TAKE ONE TABLET BY MOUTH EVERY DAY TAKE ONE TABLET BY MOUTH EVERY DAY SOLD: 09/22/2019 [facility] 100 mg 09/20/2019 12:00:00 AM EDT tablet 90 TAKE ONE TABLET BY MOUTH EVERY DAY TAKE ONE TABLET BY MOUTH EVERY DAY SOLD: 12/14/2019 [facility] 100 unit/mL (3 mL) 09/20/2019 12:00:00 AM EDT insulin pen 15 INJECT 15 UNITS UNDER THE SKIN ONCE DAILY INJECT 15 UNITS UNDER THE SKIN ONCE DAILY SOLD: 09/22/2019 [facility] 100 unit/mL (3 mL) 09/20/2019 12:00:00 AM EDT insulin pen 15 INJECT 15 UNITS UNDER THE SKIN ONCE DAILY INJECT 15 UNITS UNDER THE SKIN ONCE DAILY SOLD: 03/24/2020 [facility] BLOOD SUGAR DIAGNOSTIC 09/14/2019 12:00:00 AM EDT strip 100 USE TO TEST ONCE DAILY DIRECTED USE TO TEST ONCE DAILY DIRECTED SOLD: 09/16/2019 [facility] 500 mg 08/30/2019 12:00:00 AM EST capsule 1 TAKE 1 CAPSULE BY MOUTH 1 HOUR PRIOR TO CYSTOSCOPY TAKE 1 CAPSULE BY MOUTH 1 HOUR PRIOR TO CYSTOSCOPY JEFFREY [facility] Cephalexin 500 MG Oral Capsule [Keflex] Keflex 500 MG Keflex 500 MG 08/23/2019 12:00:00 AM EST suspended Kefle x 500 MG eCW1 ([facility]) Cephalexin 500 MG Oral Capsule [Keflex] Keflex 500 MG Keflex 500 MG 08/23/2019 12:00:00 AM EST suspended Kefle x 500 MG eCW1 ([facility]) Cephalexin 500 MG Oral Capsule [Keflex] Keflex 500 MG Keflex 500 MG 08/23/2019 12:00:00 AM EST suspended Kefle x 500 MG eCW1 ([facility]) Cephalexin 500 MG Oral Capsule [Keflex] Keflex 500 MG Keflex 500 MG 08/23/2019 12:00:00 AM EST active 1 capsul e 1 hour prior to your cystoscopy eCW1 ([facility]) Cephalexin 500 MG Oral Capsule [Keflex] Keflex 500 MG Keflex 500 MG 08/23/2019 12:00:00 AM EST suspended Kefle x 500 MG eCW1 ([facility]) Cephalexin 500 MG Oral Capsule [Keflex] Keflex 500 MG Keflex 500 MG 08/23/2019 12:00:00 AM EST suspended Kefle x 500 MG eCW1 ([facility]) Cephalexin 500 MG Oral Capsule [Keflex] Keflex 500 MG Keflex 500 MG 08/23/2019 12:00:00 AM EST suspended Kefle x 500 MG eCW1 ([facility]) Cephalexin 500 MG Oral Capsule [Keflex] Keflex 500 MG Keflex 500 MG 08/23/2019 12:00:00 AM EST active Keflex 5 00 MG eCW1 ([facility]) Cephalexin 500 MG Oral Capsule [Keflex] Keflex 500 MG Keflex 500 MG 08/23/2019 12:00:00 AM EST suspended Kefle x 500 MG eCW1 ([facility]) Cephalexin 500 MG Oral Capsule [Keflex] Keflex 500 MG Keflex 500 MG 08/23/2019 12:00:00 AM EST suspended Kefle x 500 MG eCW1 ([facility]) Cephalexin 500 MG Oral Capsule [Keflex] Keflex 500 MG Keflex 500 MG 08/23/2019 12:00:00 AM EST suspended 1 capsule 1 hour prior to your cystoscopy eCW1 ([facility]) Cephalexin 500 MG Oral Capsule [Keflex] Keflex 500 MG Keflex 500 MG 08/23/2019 12:00:00 AM EST active Keflex 5 00 MG eCW1 ([facility]) Cephalexin 500 MG Oral Capsule [Keflex] Keflex 500 MG Keflex 500 MG 08/23/2019 12:00:00 AM EST suspended Kefle x 500 MG eCW1 ([facility]) Cephalexin 500 MG Oral Capsule [Keflex] Keflex 500 MG Keflex 500 MG 08/23/2019 12:00:00 AM EST active Keflex 5 00 MG eCW1 ([facility]) Cephalexin 500 MG Oral Capsule [Keflex] Keflex 500 MG Keflex 500 MG 08/23/2019 12:00:00 AM EST suspended Kefle x 500 MG eCW1 ([facility]) Cephalexin 500 MG Oral Capsule [Keflex] Keflex 500 MG Keflex 500 MG 08/23/2019 12:00:00 AM EST suspended Kefle x 500 MG eCW1 ([facility]) Cephalexin 500 MG Oral Capsule [Keflex] Keflex 500 MG Keflex 500 MG 08/23/2019 12:00:00 AM EST active Keflex 5 00 MG eCW1 ([facility]) Cephalexin 500 MG Oral Capsule [Keflex] Keflex 500 MG Keflex 500 MG 08/23/2019 12:00:00 AM EST active Keflex 5 00 MG eCW1 ([facility]) Cephalexin 500 MG Oral Capsule [Keflex] Keflex 500 MG Keflex 500 MG 08/23/2019 12:00:00 AM EST suspended Kefle x 500 MG eCW1 ([facility]) Cephalexin 500 MG Oral Capsule [Keflex] Keflex 500 MG Keflex 500 MG 08/23/2019 12:00:00 AM EST active Keflex 5 00 MG eCW1 ([facility]) Cephalexin 500 MG Oral Capsule [Keflex] Keflex 500 MG Keflex 500 MG 08/23/2019 12:00:00 AM EST suspended Kefle x 500 MG eCW1 ([facility]) Cephalexin 500 MG Oral Capsule [Keflex] Keflex 500 MG Keflex 500 MG 08/23/2019 12:00:00 AM EST suspended Kefle x 500 MG eCW1 ([facility]) 20 mg 08/21/2019 12:00:00 AM EST capsule,delayed release (DR/EC) 30 TAKE 1 CAPSULE BY MOUTH ONCE DAILY WITH A MEAL TAKE 1 CAPSULE BY MOUTH ONCE DAILY WITH A MEAL SOLD: 08/27/2019 [facility] 20 mg 08/21/2019 12:00:00 AM EST capsule,delayed release (DR/EC) 30 TAKE 1 CAPSULE BY MOUTH ONCE DAILY WITH A MEAL TAKE 1 CAPSULE BY MOUTH ONCE DAILY WITH A MEAL SOLD: 09/26/2019 [facility] 20 mg 08/21/2019 12:00:00 AM EST capsule,delayed release (DR/EC) 30 TAKE 1 CAPSULE BY MOUTH ONCE DAILY WITH A MEAL TAKE 1 CAPSULE BY MOUTH ONCE DAILY WITH A MEAL SOLD: 01/28/2020 [facility] 20 mg 08/21/2019 12:00:00 AM EST capsule,delayed release (DR/EC) 30 TAKE 1 CAPSULE BY MOUTH ONCE DAILY WITH A MEAL TAKE 1 CAPSULE BY MOUTH ONCE DAILY WITH A MEAL SOLD: 11/23/2019 [facility] 20 mg 08/21/2019 12:00:00 AM EST capsule,delayed release (DR/EC) 30 TAKE 1 CAPSULE BY MOUTH ONCE DAILY WITH A MEAL TAKE 1 CAPSULE BY MOUTH ONCE DAILY WITH A MEAL SOLD: 12/25/2019 [facility] 20 mg 08/21/2019 12:00:00 AM EST capsule,delayed release (DR/EC) 30 TAKE 1 CAPSULE BY MOUTH ONCE DAILY WITH A MEAL TAKE 1 CAPSULE BY MOUTH ONCE DAILY WITH A MEAL SOLD: 10/23/2019 [facility] 0.4 mg 08/16/2019 12:00:00 AM EST capsule 90 TAKE ONE CAPSULE BY MOUTH EVERY DAY TAKE ONE CAPSULE BY MOUTH EVERY DAY SOLD: 08/17/2019 [facility] 0.4 mg 08/16/2019 12:00:00 AM EST capsule 90 TAKE ONE CAPSULE BY MOUTH EVERY DAY TAKE ONE CAPSULE BY MOUTH EVERY DAY SOLD: 11/13/2019 [facility] 20 mg 07/22/2019 12:00:00 AM EST tablet 90 TAKE ONE TABLET BY MOUTH EVERY DAY TAKE ONE TABLET BY MOUTH EVERY DAY SOLD: 07/25/2019 [email or web address] Tamsulosin hydrochloride 0.4 MG Oral Cap delphine Tamsulosin HCl 0.4 MG Oral Capsule (FLOMAX) Tamsulosin HCl 0.4 MG Oral Capsule (FLOMAX) 07/17/2019 12:00 :00 AM EST 0.4 mg Oral aborted Take 1 capsule b y mouth daily [facility] 0.4 mg 07/17/2019 12:00:00 AM EST capsule 30 TAKE ONE CAPSULE BY MOUTH EVERY DAY TAKE ONE CAPSULE BY MOUTH EVERY DAY SOLD: 07/18/2019 [email or web address] Misc. Devices (DURABLE MEDICAL EQUIPMENT SEE SIG) XX [facility] 97 [id number] 07/03/2019 12:00:00 AM EST aborted Use as directed. Wheel chair Dx: Back pain [facility] Ibuprofen 200 MG Ibuprofen 06/26/2019 12:00:00 AM EST completed NETSMART ([facility]) Misc. Devices (DURABLE MEDICAL EQUIPMENT SEE SIG) XX [facility] 97 [id number] 06/23/2019 12:00:00 AM EST aborted Use as directed. Urinary leg bag Dx: R33.9 [facility] Tylenol Extra Strength 500 MG Tylenol Extra Strength 06/20/2019 12:00:00 AM EST 0 {tablet} completed NET SMART ([facility]) POLYETHYLENE GLYCOL 3350 142 MG/ML Oral Solution Polyethylene Glycol 3350 Oral Packet (MIRALAX) Polyethylene Glycol 3350 Oral Packet (MIRALAX) 019 12:00:00 AM EST 17 g Oral aborted Take 1 packet by mouth daily Please substitute bottle for packets, if packets are unavailable. [facility] Tamsulosin hydrochloride 0.4 MG Oral Cap delphine Tamsulosin HCl 0.4 MG Oral Capsule (FLOMAX) Tamsulosin HCl 0.4 MG Oral Capsule (FLOMAX) 06/16/2019 12:00 :00 AM EST 0.4 mg Oral aborted Take 1 capsule b y mouth daily [facility] Lantus SoloStar 100 UNIT/ML Lantus SoloStar 06/16/2019 12:00:00 AM EST 8.0 {unit} completed NETSMART ([facility]) MetFORMIN HCl 1000 MG MetFORMIN HCl 06/16/2019 12:00:00 AM EST completed NETSMART ([facility]) Senna 8.6 MG Senna 06/16/2019 12:00:00 AM EST 2.0 {tablet} completed NETSMART ([facility]) 3 ML heparin sodium, porcine 100 UNT/ML Prefilled Syringe Heparin Lock Flush 100 UNIT/ML Intravenous Solution Heparin Lock Flush 100 UNIT/ML Intraveno us Solution 06/16/2019 12:00:00 AM EST 500 U Intracatheter aborted Encounter for long-term (current) use of antibioticsDiscitis of lumbar regionEpidural abscess 5 mLs by Intracatheter route as needed (For after IV infusion and as needed) [facility] Encounter for long-term (current) use of antibiotics Discitis of lumbar region Epidural abscess Ceftriaxone 2000 MG Injection cefTRIAXon e Sodium 2 GM Intravenous Solution Reconstituted cefTRIAXone Sodium 2 GM Intravenous Solution Reconstit uted 06/16/2019 12:00:00 AM EST 2 g Intravenous a borted Encounter for long-term (current) use of antibioticsDiscitis of lumbar regionEpidural abscess Inject 2 g into the vein every 24 (twenty-four) hours [facility] Encounter for long-term (current) use of antibiotics Discitis of lumbar region Epidural abscess Vancomycin HCl 1.5 GM Intravenous Solution Reconstitut ed (VANCOCIN) [id number] 06/16/2019 12:00:00 AM EST 1500 mg Intravenous a borted Encounter for long-term (current) use of antibioticsDiscitis of lumbar regionEpidural abscess Inject 1.5 g into the vein every 24 (twenty-four) hour s [facility] Encounter for long-term (current) use of antibiotics Discitis of lumbar region Epidural abscess Normal Saline Flush 0.9 % Intravenous Solution [id number] 06/16/2019 12:00:00 AM EST 10 mL Intravenous aborted Encounte r for long-term (current) use of antibioticsDiscitis of lumbar regionEpidural abscess I nject 10 mLs into the vein as needed (For before and after infusion and prn) [facility] Encounter for long-term (current) use of antibiotics Discitis of lumbar region Epidural abscess Tamsulosin hydrochloride 0.4 MG Oral Cap delphine Tamsulosin HCl 0.4 MG Oral Capsule (FLOMAX) Tamsulosin HCl 0.4 MG Oral Capsule (FLOMAX) 06/16/2019 12:00 :00 AM EST 0.4 mg Oral aborted Take 1 capsule b y mouth daily [facility] POLYETHYLENE GLYCOL 3350 142 MG/ML Oral Solution Polyethylene Glycol 3350 Oral Packet (MIRALAX) Polyethylene Glycol 3350 Oral Packet (MIRALAX) 019 12:00:00 AM EST 17 g Oral active Take 1 packet by mouth daily Please substitute bottle for packets, if packets are unavailable. [facility] Tamsulosin hydrochloride 0.4 MG Oral Cap delphine Tamsulosin HCl 0.4 MG Oral Capsule (FLOMAX) Tamsulosin HCl 0.4 MG Oral Capsule (FLOMAX) 06/16/2019 12:00 :00 AM EST 0.4 mg Oral active Take 1 capsule b y mouth daily [facility] Ferrous Sulfate 325 (65 Fe) MG Ferrous Sulfate 06/16/2019 12:00:00 AM EST completed NETSMART ([facility]) Losartan Potassium 100 MG Losartan Potassium 06/16/2019 12:00:00 AM EST completed NETSMART ([facility]) Tamsulosin HCl 0.4 MG Tamsulosin HCl 06/16/2019 12:00:00 AM EST completed NETSMART ([facility]) Omeprazole 20 MG Omeprazole 06/16/2019 12:00:00 AM EST completed NETSMART ([facility] ) Pravastatin Sodium 20 MG Pravastatin Sodium 06/16/2019 12:00:00 AM EST completed NETSMART ([facility]) POLYETHYLENE GLYCOL 3350 142 MG/ML Oral Solution Polyethylene Glycol 3350 Oral Packet (MIRALAX) Polyethylene Glycol 3350 Oral Packet (MIRALAX) 019 12:00:00 AM EST 17 g Oral aborted Take 1 packet by mouth daily Please substitute bottle for packets, if packets are unavailable. [facility] Heparin Lock Flush 100 UNIT/ML Heparin Lock Flush 06/16/2019 12:00: 00 AM EST 5.0 {ml} completed NETSMART ([facility]) CefTRIAXone Sodium 2 GM CefTRIAXone Sodium 06/16/2019 12:00:00 AM EST completed NETSMART ([facility]) Normal Saline Flush 0.9 % Normal Saline Flush 06/16/2019 12:00:00 A M EST 10.0 {ml} completed NETSMART ([facility]) Vancomycin HCl 1.5 GM Vancomycin HCl 06/16/2019 12:00:00 AM EST completed NETSMART ([facility]) Acetaminophen 325 MG Oral Tablet Acetaminophen 325 MG Oral T ablet 06/15/2019 12:00:00 AM EST 975 mg Oral active Take 3 tablets by mouth every 8 (eight) hours [facility] sennosides, [facility] 8.6 MG Oral Tablet Senna 8.6 MG Oral T ablet Senna 8.6 MG Oral Tablet 06/15/2019 12:00:00 AM EST 2 {tbl} Oral aborted Take 2 tablets by mouth nightly [facility] Ceftriaxone 2000 MG Injection cefTRIAXone (ROCEPHIN) i nfusion 2 g cefTRIAXone (ROCEPHIN) infusion 2 g 06/15/2019 12:00:00 AM EST 2 g Intraveno us completed Inject 2 g into the vein every 2 4 (twenty-four) hours [facility] Vancomycin HCl 1500 MG/300ML Intravenous Solution (VANCOCIN) [id number] 06/15/2019 12:00:00 AM EST 1500 mg Intravenous aborted Inject 300 mLs into the vein every 24 (twenty-four) hours [facility] ferrous sulfate 325 MG Oral Tablet Ferrous Sulfate 325 (65 Fe) MG Oral Tablet Ferrous Sulfate 325 (65 Fe) MG Oral Tablet 06/15/2019 12:00:00 AM EST 325 mg Oral active Take 1 tablet by zaira th daily with [facility] sennosides, [facility]CI 8.6 MG Oral Tablet Senna 8.6 MG Oral T ablet Senna 8.6 MG Oral Tablet 06/15/2019 12:00:00 AM EST 2 {tbl} Oral aborted Take 2 tablets by mouth nightly [facility] sennosides, [facility] 8.6 MG Oral Tablet Senna 8.6 MG Oral T ablet Senna 8.6 MG Oral Tablet 06/15/2019 12:00:00 AM EST 2 {tbl} Oral [facility]orted [facility] MG Oral Tablet Ferrous Sulfate 325 (65 Fe) MG Oral Tablet Ferrous Sulfate 325 (65 Fe) MG Oral Tablet 06/15/2019 12:00:00 AM EST 325 mg Oral aborted Take 1 tablet by zaira daily with [facility] ferrous sulfate 325 MG Oral Tablet Ferrous Sulfate 325 (65 Fe) MG Oral Tablet Ferrous Sulfate 325 (65 Fe) MG Oral Tablet 06/15/2019 12:00:00 AM EST 325 mg Oral aborted Take 1 tablet by zaira daily with [facility] ferrous sulfate 325 MG Oral Tablet Ferrous Sulfate 325 (65 Fe) MG Oral Tablet Ferrous Sulfate 325 (65 Fe) MG Oral Tablet 06/15/2019 12:00:00 AM EST 325 mg Oral aborted Take 1 tablet by zaira daily with [facility] influenza vac split quad (FLUARIX) injection 6 months and ol tatyana 0.5 mL [id number] 06/14/2019 07:11:50 PM EST 0.5 mL Intramuscular complet ed 0.5 mL, Intramuscular, Give Now, Starting Wed06/14/19 at 1911, For 1 dose [facility] Medication administered onsite sodium phosphate 6 mmol/100 mL IVPB 06/14/2019 12:00:00 PM EST 6 mmol Intravenous completed 6 mmol, Intra venous, at 50 mL/hr, Every 2 hours, First dose (after last reorder) on Wed06/14/19 at 1200, For 2 doses
Slower infusion rate (e.g. over 4 to 6 hours) are recommended in patients with renal impairment and/or less severe hypophosphatemia.
[facility] Medication administered onsite magnesium sulfate in dextrose 5 % infusion (premix) 8 mEq [id number] 06/14/2019 11:00:00 AM EST 8 meq Intravenous completed 8 mEq, Intravenous, Administer over 60 Minutes, Every 1 hour, First dose on Wed06/14/19 at 1100, For 2 doses
each 8 mEq equivalent to 1 gm
[facility] Medication administered onsite Tamsulosin hydrochloride 0.4 MG Oral Capsule tamsulosi n (FLOMAX) capsule 0.4 mg tamsulosin (FLOMAX) capsule 0.4 mg 06/14/2019 11:00:00 AM EST 0.4 mg Oral active 0.4 mg, Oral, Daily Standard, First dose on Wed06/14/19 at 1100, For 30 days
Swallow whole. Do not crush, chew or open.
[facility] Medication administered onsite Magnesium Oxide 400 MG Oral Tablet Magnesium Oxide (MA G-OX) tablet 400 mg Magnesium Oxide (MAG-OX) tablet 400 mg 06/14/2019 10:30:00 AM EST 4 00 mg Oral completed 400 mg, Oral, Once, Wed08/15/18 at 1030, For 1 dose [facility] Medication administered onsite potassium phosphate 155 MG / Sodium Phos phate, Dibasic 852 MG / Sodium Phosphate, Monobasic 130 MG Oral Tablet phosphorus (K PHOS NEUTRAL) tablet 500 mg phosphorus (K PHOS NEUTRAL) tablet 500 mg 06/14/2019 10:30:00 AM EST 500 mg Oral completed 500 mg, Or al, Once, Wed06/14/19 at 1030, For 1 dose
Each 250 mg tablet contains: elemental phosphorous 250 mg (8 mmol), sodium 298 mg (12.9 mEq), and potassium 45 mg (1.1 mEq)
[facility] Medication administered onsite Hydralazine Hydrochloride 20 MG/ML Injec table Solution hydrALAZINE (APRESOLINE) injection 10 mg hydrALAZINE (APRESOLINE) injection 10 mg 06/14/2019 07 :49:21 AM EST 10 mg Intravenous active 10 m g, Intravenous, Every 6 hours PRN, TO BE GIVEN ONLY IF SBP>170, Starting Wed06/14/19 at 0749, For 3 days
Dilute in 25-50 ml normal saline. Administer over 30 minutes.TO BE GIVEN ONLY IF S BP>170
[facility] Medication administered onsite sodium phosphate 6 mmol/100 mL IVPB 06/13/2019 12:00:00 PM EST 6 mmol Intravenous completed 6 mmol, Intra venous, at 50 mL/hr, Every 2 hours, First dose on Wed06/13/19 at 1200, For 2 doses
Slower infusion rate (e.g. over 4 to 6 hours) are recommended in patients with renal impairment and/or less severe hypophosphatemia.
[facility] Medication administered onsite Bisacodyl 10 MG Rectal Suppository bisacodyl (DULCOLAX ) suppository 10 mg bisacodyl (DULCOLAX) suppository 10 mg 06/13/2019 10:30:00 AM EST 10 mg Rectal completed 10 mg, Rectal, Once, Wed06/13/19 at 1030, For 1 dose [facility] Medication administered onsite Bisacodyl 10 MG Rectal Suppository bisacodyl (DULCOLAX ) suppository 10 mg bisacodyl (DULCOLAX) suppository 10 mg 06/13/2019 10:27:21 AM EST 10 mg Rectal active 10 mg, Rectal, Daily PRN, Constipation, Starting Wed06/13/19 at 1027, For 30 days [facility] Medication administered onsite sodium chloride (preservative free) 0.9 % flush 10 mL 06/13/2019 10:26:31 AM EST 10 mL Intravenous active [Ord er 1 Start] Name: sodium chloride (preservative free) 0.9 % flush 10 mL Signed Summary: 10 mL, Intravenous, PRN, Line Care, Starting Wed06/13/19 at 1026, For 30 days
Verify blood return before use. Flush with 10 mL of Sodium Chloride 0.9 % before and after infusions or blood sampling followed-by 2 mL Heparin 10 units/mL to lock. Reference Policy [id number] Central Line Policy.
[Order 1 End] [Order 2 Start] Name: heparin lock flush 10 UNIT/ML injection 20 Units Signed Summary: 20 Units, Intravenous, PRN, Line Care, Starting Wed06/13/19 at 1026, For 30 days
Verify blood return before use. Flush with 10 mL of Sodium Chloride 0.9 % before and after infusions or blood sampling followed-by 2 mL Heparin 10 units/mL to lock.Reference Policy [facility] Central Line Policy.
[Order 2 End] [Order 3 Start] Name: sodium chloride (preservative free) 0.9 % flush 10 mL Signed Summary: 10 mL, Intravenous, Every 12 hours, First dose on Wed06/13/19 at 1030, For 30 days
WHEN NOT IN USE - Verify blood return before use. Flush with 10 mL of Sodium Chloride 0.9 % and 2 mL Heparin 10 units/mL.Reference Policy [address] Central Line Policy.
[Order 3 End] [Order 4 Start] Name: heparin lock flush 10 UNIT/ML injection 20 Units Signed Summary: 20 Units, Intravenous, Every 12 hours, First dose on Wed06/13/19 at 1030, For 30 days
WHEN NOT IN USE - Verify blood return before use. Flush with 10 mL of Sodium Chloride 0.9 % and 2 mL Heparin 10 units/mL.Reference Policy [address] Central Line Policy.
[Order 4 End] [facility] Medication administered onsite lidocaine (XYLOCAINE) 1 % injection 5 mL [id number] 06/13/2019 10:26:31 AM EST 5 mL Subcutaneous active 5 m L, Subcutaneous, Once PRN, for PICC insertion, Starting Wed06/13/19 at 1026, For 30 days [facility] Medication administered onsite Ceftriaxone 2000 MG Injection cefTRIAXone (ROCEPHIN) I VPB (premix) 2 g cefTRIAXone (ROCEPHIN) IVPB (premix) 2 g 06/12/2019 06:30:00 PM EST 2 g Intravenous active 2 g, Intraven ous, at 100 mL/hr, Every 24 hours, First dose on Wed06/12/19 at 1830, For 7 days
Discouraged Uses: Empiric treatment of post-surgical meningitis (ceftazidime preferred)
[facility] Medication administered onsite Losartan Potassium 50 MG Oral Tablet losartan (COZAAR) tablet 50 mg losartan (COZAAR) tablet 50 mg 06/12/2019 11:15:00 AM EST 50 mg Oral active 50 mg, Oral, Daily Standard, First dose on Wed06/12/19 at 1115, For 30 days
Check vital signs before administering
[facility] Medication administered onsite Insulin Glargine 100 UNT/ML Injectable S olution insulin glargine (LANTUS) injection 8 Units insulin glargine (LANTUS) injection 8 Units 06/12/2019 11:15:00 AM EST 8 U Subcutaneous active 8 Units, Subcutaneous, Every morning, First dose on Wed06/12/19 at 1115, For 30 days
For blood glucose less than 70 mg/dL: follow hypoglycemia protocol ( ) and notify provider.For blood glucose values between 70 mg/dL and 100 mg/dL at bedtime: provide snack (15 grams of carbohydrates) with some protein. Administer FULL DOSE of insulin glargine (LANTUS) after snack.Record snack in I&O's. For blood glucose more than 400 mg/dL: notify provider
[facility] Medication administered onsite magnesium sulfate in dextrose 5 % infusion (premix) 8 mEq 04 09-6727-23 06/12/2019 09:00:00 AM EST 8 meq Intravenous completed 8 mEq, Intravenous, Administer over 60 Minutes, Every 1 hour, First dose on Wed06/12/19 at 0900, For 3 doses
each 8 mEq equivalent to 1 gm
[facility] Medication administered onsite 0.4 ML Enoxaparin sodium 100 MG/ML Prefi lled Syringe enoxaparin sodium (LOVENOX) injection 40 mg enoxaparin sodium (LOVENOX) injection 40 mg 06/12/2019 09:00:00 AM EST 40 mg Subcutaneous active 40 mg, Subcutaneous, Daily Standard, First dose on Wed06/12/19 at 0900, For 30 days [facility] Medication administered onsite POLYETHYLENE GLYCOL 3350 142 MG/ML Oral Solution polyethylene glycol (MIRALAX) packet 17 g polyethylene glycol (MIRALAX) packet 17 g 06/12/2019 0 9:00:00 AM EST 17 g Oral active 17 g, Or al, Daily Standard, First dose on Wed06/12/19 at 0900, For 30 days
Mix in 8 ounces of water, juice or milk. Avoid use in patients who require thickened liquids due to potential increased risk for aspiration.
[facility] Medication administered onsite Hydralazine Hydrochloride 20 MG/ML Injec table Solution hydrALAZINE (APRESOLINE) injection 10 mg hydrALAZINE (APRESOLINE) injection 10 mg 06/12/2019 08 :23:50 AM EST 10 mg Intravenous aborted 10 m g, Intravenous, Every 6 hours PRN, TO BE GIVEN ONLY IF SBP>170, Starting 06/12/19 at 0823, For 3 days
Dilute in 25-50 ml normal saline. Administer over 30 minutes.TO BE GIVEN ONLY IF S BP>170
[facility] Medication administered onsite sennosides, [facility]CI 8.6 MG Oral Tablet senna 8.6 MG 2 tablet sen na 8.6 MG 2 tablet 06/11/2019 10:00:00 PM EST 2 {tbl} Oral active 2 tablet, Oral, Nightly, First dose on 06/11/19 at 2200, For 30 days [facility] Medication administered onsite Insulin Lispro 100 UNT/ML Injectable Jeffrey ution [Humalog] insulin lispro (HumaLOG) injection MEDIUM DOSE EATING INSULIN patients 1-16 Units insulin lispro (HumaLOG) injection MEDIUM DOSE EATING INSULIN patients 1-16 Units 06/11/2019 06:00:00 PM EST Subcutaneous active 1-16 Units, Subcutaneous, Three Times Daily-With Meals, First dose on 06/11/19 at 1800, For 30 days
Nursing MUST open the 'SQ Insulin Dosing Charts' Sidebar Report, or, the Patient Summary or Summary Report within the ED.
[facility] Medication administered onsite Glucose 0.4 MG/MG Oral Gel glucose (GLUTOSE) 40 % oral gel 15 g glucose (GLUTOSE) 40 % oral gel 15 g 06/11/2019 02:11:29 PM EST 15 g Oral active 15 g, Oral, PRN, Low blood s ugar, for gluose 55-69 mg/dl and able to take PO, Starting Wed06/11/19 at 1411, For 30 days [facility] Medication administered onsite vancomycin (VANCOCIN) infusion 1,500 mg/300 mL (premix) [id number] 06/11/2019 09:08:45 AM EST 1500 mg Intravenous active 1,500 mg, Intravenous, Administer over 90 Minutes, Every 24 hours, First dose (after last modification) on 06/11/19 at 0915, For 7 doses [facility] Medication administered onsite Piperacillin 3000 MG / tazobactam 375 MG Injection piperacillin-tazobactam (ZOSYN) IVPB 3.375 g (premix) piperacillin-tazobactam (ZOSYN) IVPB 3.3 75 g (premix) 06/11/2019 09:00:00 AM EST 3.375 g Intravenous abo rted 3.375 g, Intravenous, Administer over 4 Hours, Every 8 hours Standard (3 times per day), First dose on 06/11/19 at 0900, For 3 days [facility] Medication administered onsite Acetaminophen 325 MG Oral Tablet acetaminophen (TYLENO L) tablet 975 mg acetaminophen (TYLENOL) tablet 975 mg 06/11/2019 08:15:00 AM EST 97 5 mg Oral active 975 mg, Oral, E very 8 hours, First dose on 06/11/19 at 0815, For 30 days
Maximum daily dose of acetaminophen is 3,000 mg from all sources in 24 hours.
[facility] Medication administered onsite Insulin Lispro 100 UNT/ML Injectable Jeffrey ution [Humalog] insulin lispro (HUMALOG) injection MEDIUM DOSE NPO INSULIN patients 1-10 Units insulin lispro (HUMALOG) injection MEDIUM DOSE NPO INSULIN patients 1-10 Units 06/10/2019 11:30:00 PM EST Subcutaneous aborted 1-1 0 Units, Subcutaneous, Every 4 hours, First dose on 06/10/19 at 2330, For 30 days
Nursing MUST open the 'SQ Insulin Dosing Charts' Sidebar Report, or, the Patient Summary or Summary Report within the ED.
[facility] Medication administered onsite Hydralazine Hydrochloride 20 MG/ML Injec table Solution hydrALAZINE (APRESOLINE) injection 10 mg hydrALAZINE (APRESOLINE) injection 10 mg 06/10/2019 11 :22:39 PM EST 10 mg Intravenous aborted 10 m g, Intravenous, Every 6 hours PRN, Other, Starting 06/10/19 at 2322, For 1 day
Dilute in 25-50 ml normal saline. Administer over 30 minutes.TO BE GIVEN ONLY IF SBP>170
[facility] Medication administered onsite dextrose 50 % IV solution 25 mL [id number] 06/10/2019 11:20:[address] 25 mL Intravenous active 25 mL, Intrav enous, PRN, Other, blood glucose <55, Starting 06/10/19 at 2320, For 30 days
Not for midline administration.
[facility] Medication administered onsite Glucagon 1 MG Injection glucagon (human recombinant) ( GLUCAGEN) injection 1 mg glucagon (human recombinant) (GLUCAGEN) injection 1 mg 06/10/2019 11:20:42 PM EST 1 mg Intramuscular active 1 mg, Intramuscular, PRN, for glucose <55 without IV access, Starting 06/10/19 at 2320, For 30 days [facility] Medication administered onsite Glucose 0.4 MG/MG Oral Gel glucose (GLUTOSE) 40 % oral gel 15 g glucose (GLUTOSE) 40 % oral gel 15 g 06/10/2019 11:20:42 PM EST 15 g Oral active 15 g, Oral, PRN, Low blood s ugar, for gluose 55-69 mg/dl and able to take PO, Starting 06/10/19 at 2320, For 30 days [facility] Medication administered onsite Acetaminophen 325 MG / Hydrocodone Yanni trate 5 MG Oral Tablet HYDROcodone- acetaminophen (LORTAB) 5-325 MG per tablet 1 tablet HYDROcodone-acetaminophen (LORTAB) 5-325 MG per tablet 1 tablet 06/10/2019 10:30:00 PM EST 1 {tbl} Oral aborted 1 tablet, Oral, Every 6 hours, First dose on 06/10/19 at 2230, For 3 days
Maximum daily dose of acetaminophen is 3,000 mg from all sources in 24 hours.
[facility] Medication administered onsite tramadol hydrochloride 50 MG Oral Tablet traMADol HCl 50 MG Oral Tablet (ULTRAM) traMADol HCl 50 MG Oral Tablet (ULTRAM) 50 mg Oral aborted Take 50 mg by mouth every 6 (six) hours as needed for Pain [facility] Acetaminophen 325 MG Oral Tablet Acetaminophen 325 MG Oral Tablet 650 mg Oral aborted Take 650 mg by mouth every 6 (six) hours as needed for Pain [facility] meloxicam 15 MG Oral Tablet Meloxicam 15 MG Oral Table t (MOBIC) Meloxicam 15 MG Oral Tablet (MOBIC) 15 mg Oral aborted Take 15 mg by mouth daily [facility] Pravastatin Sodium 20 MG Oral Tablet Pra vastatin Sodium 20 MG Oral Tablet (PRAVACHOL) Pravastatin Sodium 20 MG Oral Tablet (PRAVACHOL) 20 mg Oral aborted Take 20 mg by mouth daily [facility] Insurance Providers Payer name Policy type / Coverage type Policy ID Covered republican ID Covered republican's relationship to smith Policy Smith Plan Information MEDICARE BLUE PPO 306 [id number] SP [id number] MEDICARE BLUE PPO 306 [id number] SP [id number] EXCELLUS BCBS B [id number] S VYM MEDICARE [id number] SP [id number] EXCELLUS MEDICARE BLUE PPO G [id number] Self [id number] EXCELLUS BCBS MCR HMO [id number] S [id number] MEDICARE BLUE PPO 306 [id number] SP [id number] MEDICARE BLUE PPO 306 [id number] SP [id number] BLUE CROSS BLUE SHIELD MCR -OP [id number] MEDICARE BLUE PPO 306 [id number] SP [id number] BLUE CROSS BLUE SHIELD -O/P [id number] 18 [id number] MEDICARE BLUE PPO 306 [id number] SP [id number] EXCELLUS BCBS B [id number] S VYM MEDICARE BLUE PPO 306 [id number] SP [id number] [place] PPO [id number] MEDICARE [id number] SP [id number] A [facility] [id number] 80 [id number] Blue Shield MCR Advantage Commercial [id number] Self [id number] MVP (pr) Medigap Part B [id number] Family Dependent [id number] Blue Shield MCR Advantage Commercial [id number] Self [id number] Blue Shield MCR Advantage Commercial [id number] Self [id number] O UNAVAILABLE UNAVAILA BLE Problems, Conditions, and Diagnoses Code Display Name Description Problem Type Effective Dates Data Source(s) 05368356 Essential hypertension Essential hypertension Problem 01/15/2020 12:00:00 AM EDT MEDENT ([facility], ) 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 Problem 01/08/2020 12:00:00 AM EDT eCW1 ([facility]) [id number] Carotid artery stenosis Carotid artery stenosis Proble m 12/25/2019 12:00:00 AM EDT MEDENT ([facility], ) [id number] Ischemic stroke Ischemic stroke Problem 12/25/2019 12:0 0:00 AM EDT MEDENT ([facility] ) I48.92 Unspecified atrial flutter Unspecified atrial flutter Problem 11/25/2019 01:00:00 AM EDT NETSMART ([facility] ) 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, or unspecified chronic kidney disease Hypertensive chronic kidney disease with stage 1 through stage 4 chronic kidney disease, or unspecified chronic kidney disease Problem 11/25/2019 01:00:00 AM ED T NETSMART ([facility]) 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 Problem 11/25/2019 01:00:00 AM EDT NETSMART ([facility] ) N18.9 Chronic kidney disease, unspecified Chronic kidn ey disease, unspecified Problem 11/25/2019 01:00:00 AM EDT NETSMART ([facility]) D63.1 Anemia in chronic kidney disease Anemia in chronic kid ольга disease Problem 11/25/2019 01:00:00 AM EDT NETSMART ([facility] ) E11.40 Type 2 diabetes mellitus with diabetic n europathy, unspecified Type 2 diabetes mellitus with diabetic neuropathy, unspecified Problem 11/25/2019 01:00:00 AM EDT NETSMART ([facility] ) M48.061 Spinal stenosis, lumbar region without n eurogenic claudication Spinal stenosis, lumbar region without neurogenic claudication Problem 11/25/2019 01:00:00 AM EDT NETSMART ([facility] ) 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, lumbar region Intervertebral disc disorders with radiculopathy, lumbar region Problem 11/25/2019 01:00:00 AM EDT NETSMART ([facility] ) M54.30 Sciatica, unspecified side Sciatica, unspecified side Problem 11/25/2019 01:00:00 AM EDT NETSMART ([facility] ) M19.90 Unspecified osteoarthritis, unspecified site Unspecified osteoarthritis, unspecified site Problem 11/25/2019 01:00:00 AM EDT NETSMART ([facility]) D50.9 Iron deficiency anemia, unspecified Iron deficie ncy anemia, unspecified Problem 11/25/2019 01:00:00 AM EDT NETSMART ([facility]) R33.8 Other retention of urine Other retention of urine Prob norberto 11/25/2019 01:00:00 AM EDT NETSMART ([facility] ) Z46.6 Encounter for fitting and adjustment of urinary device Encounter for fitting and adjustment of urinary device Problem 11/25/2019 01:00:00 AM EDT NETSMART ([facility]) Z91.81 History of falling History of falling Problem 0 01:00:00 AM EDT NETSMART ([facility]) 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 predatory animal exterminator (current) use of insulin predatory animal exterminator (cu rrent) use of insulin Problem 11/25/2019 01:00:00 AM EDT NETSMART ([facility]) Z79.01 predatory animal exterminator (current) use of anticoagulant s FPC (current) use of anticoagulants Problem 11/25/2019 01:00:00 AM EDT NETSMART ([facility]) Z87.891 Personal history of nicotine dependence Personal history of nicotine dependence Problem 11/25/2019 01:00:00 AM EDT NETSMART ([facility]) 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 ebral infarction affecting right dominant side Problem 11/24/2019 01:00:00 AM EDT NET SMART ([facility]) R33.9 Urinary retention Urinary retention Problem 08/23/2019 12:00:00 AM EST eCW1 ([facility]) R33.9 Urinary retention Urinary retention Problem 08/23/2019 12:00:00 AM EST eCW1 ([facility]) Z46.6 Encounter for fitting and adjustment of urinary device Encounter for fitting and adjustment of urinary device Problem 08/10/2019 12:00:00 AM EST NETSMART ([facility]) R33.8 Other retention of urine Other retention of urine Prob norberto 08/10/2019 12:00:00 AM EST NETSMART ([facility] ) E11.40 Type 2 diabetes mellitus with diabetic n europathy, unspecified Type 2 diabetes mellitus with diabetic neuropathy, unspecified Problem 08/10/2019 12:00:00 AM EST NETSMART ([facility] ) 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, or unspecified chronic kidney disease Hypertensive chronic kidney disease with stage 1 through stage 4 chronic kidney disease, or unspecified chronic kidney disease Problem 08/10/2019 12:00:00 AM ES T NETSMART ([facility]) 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 Problem 06/16/2019 12:00:00 AM EST NETSMART ([facility]) 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 Problem 06/16/2019 12:00:00 AM EST NETSMART ([facility] ) N18.9 Chronic kidney disease, unspecified Chronic kidn ey disease, unspecified Problem 06/16/2019 12:00:00 AM EST NETSMART ([facility]) M19.90 Unspecified osteoarthritis, unspecified site Unspecified osteoarthritis, unspecified site Problem 06/16/2019 12:00:00 AM EST NETSMART ([facility]) Z91.81 History of falling History of falling Problem 9 12:00:00 AM EST NETSMART ([facility]) Z79.4 predatory animal exterminator (current) use of insulin FPC (cu rrent) use of insulin Problem 06/16/2019 12:00:00 AM EST NETSMART ([facility]) R33.9 Retention of urine, unspecified Retention of urine, un specified Problem 06/16/2019 12:00:00 AM EST NETSMART ([facility] ) Z51.81 Encounter for therapeutic drug level mon itoring Encounter for therapeutic drug level monitoring Problem 06/16/2019 12:00:00 AM EST [facility] Z79.2 predatory animal exterminator (current) use of antibiotics L robert term (current) use of antibiotics Problem 06/16/2019 12:00:00 AM EST NETSMART ([facility]) M46.46 Discitis, unspecified, lumbar region Dis citis, unspecified, lumbar region Problem 06/16/2019 12:00:00 AM EST NETSMART ([facility]) M46.46 Discitis, unspecified, lumbar region Dis citis, unspecified, lumbar region Problem 06/14/2019 12:00:00 AM EST NETSMART ([facility]) M4646 Discitis, unspecified, lumbar region Discitis, u nspecified, lumbar region Diagnosis 07/18/2019 01:14:[address] 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 R33.9 Retention of urine, unspecified Retention of urine, un specified Diagnosis 06/15/2019 02:55:41 PM [facility] I10 Essential (primary) hypertension Essential (primary) h ypertension Diagnosis 06/13/2019 09:07:47 PM [facility] Surgeries/Procedures Procedure Description Date Indications Data Source(s) Medication: Lidocaine HCl 2% Jelly 5mL Intravesically 08/05/2020 12:00:00 AM EST eCW1 ([facility]) Medication: Lidocaine HCl 2% Jelly 5mL Intravesically 07/16/2020 12:00:00 AM EST eCW1 ([facility]) BLDR IRRIGATION SMPL LAVAGE&/INSTLJ 06/27/2020 12:00:0 0 AM EST eCW1 ([facility]) Medication: Lidocaine HCl 2% Jelly 5mL Intravesically 06/20/2020 12:00:00 AM EST eCW1 ([facility]) Medication: Lidocaine HCl 2% Jelly 5mL Intravesically 05/20/2020 12:00:00 AM EST eCW1 ([facility]) Burt Catheter Insertion 20F 04/05/2020 12:00:00 AM ED T eCW1 ([facility]) Medication: Lidocaine HCl 2% Jelly 5mL Intravesically 03/26/2020 12:00:00 AM EDT eCW1 ([facility]) TSTG ANS FUNCJ CARDIOVAGAL INNERVAJ PARASYMP 0 12:00:00 AM EDT MEDENT ([facility] ) TSTG ANS FUNCJ CARDIOVAGAL INNERVAJ PARASYMP 0 12:00:00 AM EDT MEDENT ([facility], ) TESTING AUTONOMIC NERVOUS SYSTEM FUNCTION 01/26/2020 1 2:00:00 AM EDT MEDENT ([facility], ) TESTING AUTONOMIC NERVOUS SYSTEM FUNCTION 01/26/2020 1 2:00:00 AM EDT MEDENT ([facility], ) NON-INVASIVE PHYSIOLOGIC STUDY EXTREMITY 3 LEVLS 01/25 12:00:00 AM EDT MEDENT ([facility] ) Burt Catheter Coude Insertion 20F 01/09/2020 12:00:00 AM EDT eCW1 ([facility]) Magnetic Resonance Angiogtaphy Head W/O Contrast Material(S) 01/01/2020 12:00:00 AM EDT [facility] ([facility] Magnetic Resonance Angiogtaphy Head W/O Contrast Material(S) 01/01/2020 12:00:00 AM EDT [facility] ([facility] Magnetic Resonance Angiography Neck W/O And Then With Contra st ML 01/01/2020 12:00:00 AM EDT MEDENT ([facility] Magnetic Resonance Angiography Neck W/O And Then With Contra st ML 01/01/2020 12:00:00 AM EDT MEDENT ([facility]) Office Visit, Est Pt., Level 3 FC 11/16/2019 12:00:00 AM EDT eCW1 ([facility]) Office Visit, Est Pt., Level 3 PC 11/16/2019 12:00:00 AM EDT eCW1 ([facility]) INSERT BLADDER CATH, COMPLEX 11/16/2019 12:00:00 AM ED T eCW1 ([facility]) Office Visit, New Pt., Level 2 FC 08/23/2019 12:00:00 AM EST eCW1 ([facility]) Office Visit, New Pt., Level 3 PC 08/23/2019 12:00:00 AM EST eCW1 ([facility]) POCT GLUCOSE, DOCKED POCT GLUCOSE, DOCKED Routine 06/15/2019 11:39 AM EST 06/15/2019 04:39:00 PM [facility] IRON BINDING CAPACITY TOTAL FE BINDING CAPACITY STAT 9 9:31 AM EST 06/15/2019 02:31:00 PM [facility] BLOOD COUNT COMPLETE AUTOMATED CBC STAT 06/15/2019 9:31 A M EST 06/15/2019 02:31:00 PM [facility] FERRITIN FERRITIN LEVEL STAT 06/15/2019 9:31 AM EST 06/15/2019 02:31:00 PM [facility] DRUG SCREEN QUALITATIVE VANCOMYCIN VANCOMYCIN, TROUGH Routine 06/15/2019 9:31 AM EST 06/15/2019 02:31:[address] [facility] POCT GLUCOSE, DOCKED POCT GLUCOSE, DOCKED Routine 06/15/2019 7:51 AM EST 06/15/2019 12:51:00 PM [facility] BLOOD COUNT COMPLETE AUTO&AUTO DIFRNTL WBC COUNT CBC AND DIFFER ENTIAL Routine 06/15/2019 3:15 AM EST 06/15/2019 08:15:00 AM [facility] PHOSPHORUS INORGANIC PHOSPHORUS LEVEL Routine 06/15/2019 3:[address] 06/15/2019 08:15:00 AM [facility] MAGNESIUM MAGNESIUM LEVEL Routine 06/15/2019 3:15 AM EST 06/15/2019 08:15:00 AM [facility] BASIC METABOLIC PANEL CALCIUM TOTAL BASIC METABOLIC PANEL Routi ne 06/15/2019 3:15 AM EST 06/15/2019 08:15:[address] [facility] GLUCOSE QUANTITATIVE BLOOD XCPT REAGENT STRIP POCT GLUCOSE, DOC KED Routine 06/14/2019 8:36 PM EST 06/15/2019 01:36:00 AM [facility] GLUCOSE QUANTITATIVE BLOOD XCPT REAGENT STRIP POCT GLUCOSE, DOC KED Routine 06/14/2019 4:25 PM EST 06/14/2019 09:25:00 PM [facility] GLUCOSE QUANTITATIVE BLOOD XCPT REAGENT STRIP POCT GLUCOSE, DOC KED Routine 06/14/2019 11:42 AM EST 06/14/2019 04:42:00 PM [facility] BLOOD COUNT COMPLETE AUTOMATED CBC Routine 06/14/2019 8:28 A M EST 06/14/2019 01:28:00 PM [facility] PHOSPHORUS INORGANIC PHOSPHORUS LEVEL Routine 06/14/2019 8:[address] 06/14/2019 01:28:00 PM [facility] MAGNESIUM MAGNESIUM LEVEL Routine 06/14/2019 8:28 AM EST 06/14/2019 01:28:00 PM [facility] BASIC METABOLIC PANEL CALCIUM TOTAL BASIC METABOLIC PANEL Routi ne 06/14/2019 8:28 AM EST 06/14/2019 01:28:[address] [facility] GLUCOSE QUANTITATIVE BLOOD XCPT REAGENT STRIP POCT GLUCOSE, DOC KED Routine 06/14/2019 7:58 AM EST 06/14/2019 12:58:00 PM [facility] GLUCOSE QUANTITATIVE BLOOD XCPT REAGENT STRIP POCT GLUCOSE, DOC KED Routine 06/13/2019 9:04 PM EST 06/14/2019 02:04:00 AM [facility] GLUCOSE QUANTITATIVE BLOOD XCPT REAGENT STRIP POCT GLUCOSE, DOC KED Routine 06/13/2019 4:28 PM EST 06/13/2019 09:28:00 PM [facility] PICC ULTRASOUND - BEDSIDE PROCEDURE PICC ULTRASOUND - BEDSI DE PROCEDURE Routine 06/13/2019 2:41 PM EST 06/13/2019 07:41:00 PM [facility] GLUCOSE QUANTITATIVE BLOOD XCPT REAGENT STRIP POCT GLUCOSE, DOC KED Routine 06/13/2019 11:48 AM EST 06/13/2019 04:48:00 PM [facility] BLOOD COUNT COMPLETE AUTO&AUTO DIFRNTL WBC COUNT CBC AND DIFFER ENTIAL Routine 06/13/2019 9:32 AM EST 06/13/2019 02:32:00 PM [facility] PHOSPHORUS INORGANIC PHOSPHORUS LEVEL Routine 06/13/2019 9:[address] 06/13/2019 02:32:00 PM [facility] MAGNESIUM MAGNESIUM LEVEL Routine 06/13/2019 9:32 AM EST 06/13/2019 02:32:00 PM [facility] BASIC METABOLIC PANEL CALCIUM TOTAL BASIC METABOLIC PANEL Routi ne 06/13/2019 9:32 AM EST 06/13/2019 02:32:[address] [facility] GLUCOSE QUANTITATIVE BLOOD XCPT REAGENT STRIP POCT GLUCOSE, DOC KED Routine 06/13/2019 7:19 AM EST 06/13/2019 12:19:00 PM [facility] GLUCOSE QUANTITATIVE BLOOD XCPT REAGENT STRIP POCT GLUCOSE, DOC KED Routine 06/12/2019 9:55 PM EST 06/13/2019 02:55:00 AM [facility] GLUCOSE QUANTITATIVE BLOOD XCPT REAGENT STRIP POCT GLUCOSE, DOC KED Routine 06/12/2019 4:31 PM EST 06/12/2019 09:31:00 PM [facility] RADEX SPINE LUMBOSACRAL 2/3 VIEWS XR SPINE LUMBAR 2-3 VIEWS 721 00 Routine 06/12/2019 3:41 PM EST 06/12/2019 08:41:49 PM [facility] GLUCOSE QUANTITATIVE BLOOD XCPT REAGENT STRIP POCT GLUCOSE, DOC KED Routine 06/12/2019 11:27 AM EST 06/12/2019 04:27:00 PM [facility] CUL PRSMPTV PTHGNC ORGANISM SCRN W/COLONY ESTIMJ MRSA CULTURE Routine 06/12/2019 11:25 AM EST 06/12/2019 04:25:00 PM [facility] GLUCOSE QUANTITATIVE BLOOD XCPT REAGENT STRIP POCT GLUCOSE, DOC KED Routine 06/12/2019 7:30 AM EST 06/12/2019 12:30:00 PM [facility] BLOOD COUNT COMPLETE AUTO&AUTO DIFRNTL WBC COUNT CBC AND DIFFER ENTIAL Routine 06/12/2019 3:21 AM EST 06/12/2019 08:21:00 AM [facility] PHOSPHORUS INORGANIC PHOSPHORUS LEVEL Routine 06/12/2019 3:[address] 06/12/2019 08:21:00 AM [facility] MAGNESIUM MAGNESIUM LEVEL Routine 06/12/2019 3:21 AM EST 06/12/2019 08:21:00 AM [facility] COMPREHENSIVE METABOLIC PANEL COMPREHENSIVE METABOLIC PANEL Rou joni 06/12/2019 3:21 AM EST 06/12/2019 08:21:[address] [facility] GLUCOSE QUANTITATIVE BLOOD XCPT REAGENT STRIP POCT GLUCOSE, DOC KED Routine 06/11/2019 9:34 PM EST 06/12/2019 02:34:00 AM [facility] GLUCOSE QUANTITATIVE BLOOD XCPT REAGENT STRIP POCT GLUCOSE, DOC KED Routine 06/11/2019 4:33 PM EST 06/11/2019 09:33:00 PM [facility] GLUCOSE QUANTITATIVE BLOOD XCPT REAGENT STRIP POCT GLUCOSE, DOC KED Routine 06/11/2019 11:10 AM EST 06/11/2019 04:10:00 PM [facility] GLUCOSE QUANTITATIVE BLOOD XCPT REAGENT STRIP POCT GLUCOSE, DOC KERhona Routine 06/11/2019 7:31 AM EST 06/11/2019 12:31:00 PM [facility] RADEX SPINE LUMBOSACRAL 2/3 VIEWS XR SPINE L-S 2-3 VIEWS [place] R [id number] Routine 06/11/2019 6:52 AM EST Discitis of lumbar region 06/11/2019 11:52:35 AM EST Disciti s of lumbar region [facility] Discitis of lumbar region CUL BACT XCPT URINE BLOOD/STOOL AEROBIC ISOL WOUND CULTURE Ro utine 06/11/2019 4:06 AM EST 06/11/2019 09:06:[address] [facility] CUL BACT XCPT URINE BLOOD/STOOL AEROBIC ISOL WOUND CULTURE Ro utine 06/11/2019 4:06 AM EST 06/11/2019 09:06:[address] [facility] DEBRIDEMENT; SKIN, SUBQ TISSUE, MUSCLE, & BONE <td><co ntent ID="[id number]">DEBRIDEMENT; SKIN, SUBQ TISSUE, MUSCLE, & BONE</content></td><td></td><td>06/11/2019 3:27 AM EST</td><td><paragraph> Lumbar epidural abscess, L2/L3 discitis</paragraph></td><td></td> 06/11/2019 08:27:00 AM EST - 06/11/2019 12:32:00 PM EST [facility] CONFIRMATORY TYPE CONFIRMATORY TYPE Routine 06/11/2019 3:17 AM EST 06/11/2019 08:17:00 AM [facility] GLUCOSE QUANTITATIVE BLOOD XCPT REAGENT STRIP POCT GLUCOSE, DOC KED Routine 06/11/2019 3:11 AM EST 06/11/2019 08:11:00 AM [facility] LACTATE LACTIC ACID LEVEL, PLASMA Routine 06/11/2019 2:30 AM EST 06/11/2019 07:30:00 AM [facility] GLUCOSE QUANTITATIVE BLOOD XCPT REAGENT STRIP POCT GLUCOSE, DOC KED Routine 06/11/2019 12:14 AM EST 06/11/2019 05:14:00 AM [facility] Results ID Date Data Source [id number] 03/24/2020 07:15:41 AM EDT [facility] Name Value Range Interpretation Code Description Data Tania rce(s) Supporting Document(s) Progress Note [facility] [id number] lbm [file] [id number] [file] [id number] ID Date Data Source [id number] 03/16/2020 09:30:46 AM EDT [facility] XR SPINE LUMBAR 4-MORE VIEWS [id number] RESULTInterpreted by:Tanner Klein MDW[facility] SPINECLINICAL STATEMENT: Low back pain.TECHNIQUE: AP, lateral, and flexion-extension views of the lumbar spine. COMPARISON: 09/08/2019.FINDINGS:No acute fracture or subluxation is identified. The moderate to severe chronic anterior wedge compression fracture is again seen at L3.There is moderate adult degenerative type lumbar scoliosis, centered towards the left centered at the L2-L3 level.There is straightening of normal lumbar lordosis in neutral position.Otherwise, normal vertebral body heights and alignment are maintained. Moderate multilevel degenerative disc disease and facet arthropathy is present throughout the lumbar spine, most significant at the L2-L3 level. IMPRESSION: Since 09/08/2019,No significant interval change.This document has been electronically signed by Tanner Klein MD on 03/16/2020 9:28 AM Name Value Range Interpretation Code Description Data Tania rce(s) Supporting Document(s) ID Date Data Source [id number] 09/25/2019 04:13:27 PM EDT [facility] XR SPINE LUMBAR 4-MORE VIEWS [id number] RESULTInterpreted by:Leonard Schultz MDBeaumont Hospitalar spine 4 viewsINDICATION: Lumbar painCOMPARISON: Thoracic and lumbar spine radiographs 06/23/2019FINDINGS:Post surgical changes of L2 and L3 laminectomies with posterior ground glass material again seen. There is increased moderate mid anterior height loss of the L3 vertebral body, now approximately 30% height loss. There is approximately 6 mm retropulsion of the posterior superior aspect of L3 vertebral body, not simply changed. Severe L2-3 disc space narrowing with associated superior L3 endplate sclerosis.No significant change in alignment on neutral, flexion, or extension views.IMPRESSION:Compared to 06/23/2019, there may be interval increased height loss of the predominantly right and anterior aspects of the L3 vertebral body. L2-3 endplate erosions may be slightly increased as well. This all may be secondary to progressive degenerative disc changes. Recommend clinical correlation for possible discitis/osteomyelitis. Per 09/08/2019 clinic note, the patient reportedly has had prior lumbar surgery for an epidural abscess and treatment for L2-3 discitis.This document has been electronically signed by R cari Schultz MD on 09/25/2019 4:11 PM Name Value Range Interpretation Code Description Data Tania rce(s) Supporting Document(s) ID Date Data Source [id number] 09/24/2019 11:36:26 AM EDT [facility] Name Value Range Interpretation Code Description Data Tania rce(s) Supporting Document(s) Progress Note [facility] KHUCBz9eUmTKHcKe22/JIKypJVRed3UrZJraLJg2CMttHEKsR1WuUUA4oK4fEIJ9VCwBEgExZiNjUuJ8 lbm [file] 53r4P1zXoQ+4E9xp+KV5hY/xRXyCT/Kj+Jc4Lc2b/light equipment operator+x7O04QgahsgAM7levZ2kM4Pd2XszjeIBijSH SNukd+KVnC6nnJ7bof5XkSu4RqtPqxk6p2JmItLU7a sX1dsxTqfJGGhRuMq5hSf2aZHxBpGAYKqFsDD2Rny5TjDurSWEcJI5WL5Y8aXB6b8EK/12GDY3M+govx un8C2q2+pHHy1RjkF50EAJiLSl/l9yoCo5B6MY1VlY2f4Zh+EVHMRHybPcBMCC3/UdB9WEYooN+jXXjG 8QS9gXZWMf7ShEc0bn38WeCJUY+DsujTgyDrComvs7 ep6MA72KY7WZZ9KU8Ng+NuJscgC9xw/IX7WGeDFmdX5cX91OijAlKc7oyDv/NJkaLT7VpWXTe+Mm7lHx a/I+LriS9Nq4wWjIoy+A/Qgova7VAzOqnZNgLdeTa7oYbx5Wsl+Sf5DghnFl/WKpsmtuKQtluFuPk4mK weKLfVzi0UT5ambYjJGpDqR6tLVt7fZ9WVj6llwFpo Adela/UGmWb8JCsAs1hxyNDqNpP0i1enTI6Th8VcTC+tw2GWfI3Jw2Mqn2ewOVMxwG0JysHDqjouQPXAFeP xJ3HEQZTIIDIRrX+7a48MYWH9K+NBZXrBV6xF9bf6BTot94L54a9yIfxlsj/5YBLo9zOqP3ZTigQRW9l SjfIH4NSiwSW3yZ0BcbVHmqq+qavyv4kMjwHyar4I9 kKO/vhF7zEWXKU1Jv6J57gfwhGpMW6o1xLfiHIlYMZvbEgsS/9zJN/X54p5hFN+hyVwf+iNFqADFgDC3KPnQ4wAkSkykkcZ2QsX5rbmaOcWOHb3YEpcR3zrwrJdrMzg0Dkfhr3U7u5ezg4PRO+GT4KtlBXCre4 [file] 5Noewl7eirfhumkRYkJf2aY6Xh/q7hEQtR2RQIH0Rllq+manager decision support/5R3HrILrrSIdEou6jkk0bLnCpaaXdN2v [file] Y2mdSbBLl6UtP6Bb9UKDUKM5OQRp== ID Date Data Source [id number] 08/04/2019 03:18:58 PM [facility] XR SPINE-ENTIRE THORACIC AND LUMBAR- 2 O R 3 VIEW [id number] RESULTInterpreted by:Sage Shepherd MDEXAM: Entire thoracic and lumbar spine, 2-3 views: HISTORY: Status post T12-L1 fusion. TECHNIQUE: Upright standing AP and lateral radiographs of the thoracolumbar spine. COMPARISON: Today's examination is compared to an earlier study dated 06/12/2019. FINDINGS: There is been previous posterior fusion from L2 through L5 and laminectomy in that area has been performed. Bone graft material seen to be present posteriorly. There is wedging of the upper endplate of L3 and there is anterior subluxation of L3 on 4. There is disc space narrowing at L2-3. The vertebral bodies and the disc spaces otherwise appear to be normal. No masses or collections are identified. No other abnormalities.IMPRESSION: 1. Status post fusion from L2 through L5.2. Wedging deformity of the upper endplate of L3 with disc space narrowing at L2-3 This document has been electronically signed by Sage Shepherd MD on 08/04/19 3:16 PM Name Value Range Interpretation Code Description Data Tania rce(s) Supporting Document(s) ID Date Data Source [id number] 07/30/2019 07:47:45 AM EST [facility] Name Value Range Interpretation Code Description Data Tania rce(s) Supporting Document(s) Progress Note [facility] UUDYVc9eRqBWXkRs91/INLwvWZOii7XqGOsbTJs8PUryHOJtP5DtJIV4tX6yTTI0SBiAKgHiWpDoZiAy lbm [file] H+R/Lvhy+Cárdenas/54xsr1ON3KKn/4D7zhgL26+bmWPrQKmO6YJ6nLuzfABlaSI2KWcx94Ta1IV3aR4IrZa [file] rGHOKhSxyVUw1WxFfnYU10CAfc9aRU4/WM7oLT+c0VsK8/QWA/Matt+j/cEnatSEI542djb4vjs78S+gm/svp 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 Name Value Range Interpretation Code Description Data Tania rce(s) Supporting Document(s) Erythrocyte sedimentation rate by Westergren method 41 mm/hr 0 - 20 H [facility] SED RATE REENTER 41 [facility] ID Date Data Source [id number] 07/18/2019 02:31:00 PM EST [facility] Name Value Range Interpretation Code Description Data Tania rce(s) Supporting Document(s) COMPREHENSIVE METABOLIC PANEL [facility] COMPREHENSIVE METABOLIC PANEL Sodium [Moles/volume] in Serum or Plasma 140 mEq/L 134 - 153 [facility] Potassium [Moles/volume] in Serum or Plasma 4.8 mEq/L 3.6 - 5.0 [facility] Chloride [Moles/volume] in Serum or Plasma 103 mEq/L 98 - 107 [facility] Carbon dioxide, total [Moles/volume] in Serum or Plasma 25 MEQ/L 22 - 30 [facility] Glucose [Mass/volume] in Serum or Plasma 145 MG/DL 65 - 110 H [facility] BUN 23 MG/DL 7 - 21 H [facility] Creatinine [Mass/volume] in Serum or Plasma 0.9 MG/DL 0.7 - 1.5 [facility] BUN/CREAT 26 8 - 27 [facility] al Protein [Mass/volume] in Serum or Plasma 6.7 G/DL 6.3 - 8.2 [facility] Albumin [Mass/volume] in Serum or Plasma 3.7 G/DL 3.9 - 5.0 L [facility] Globulin [Mass/volume] in Serum by calculation 3.0 GM/DL 2.4 - 3.2 [facility] A/G RATIO 1.2 0.8 - 2.0 [facility] Calcium [Mass/volume] in Serum or Plasma 9.3 MG/DL 8.4 - 10.2 [facility] Bilirubin.total [Mass/volume] in Serum or Plasma 0.7 MG/DL 0.2 - 1.3 [facility] Alkaline phosphatase [Enzymatic activity/volume] in Serum or Plasma 175 U/L 38 - 126 H [facility] Aspartate aminotransferase [Enzymatic activity/volume] in Serum or Plasma 17 U/L 5 - 40 [facility] Alanine aminotransferase [Enzymatic activity/volume] in Seru m or Plasma 16 U/L 7 - 56 [facility] Anion gap 3 in Serum or Plasma 12.0 mmol/L 8.0 - 16.0 [facility] AGE [address] [facility] al NON-AA GFR >60 mL/min [facility] ital AFR AMER GFR >60 mL/min [facility] sp[facility] Male GFR In terprentation 20-49 yrs >60 mL/min Normal 50-59 yrs >56 mL/min Normal 60-69 yrs >49 mL/min Normal 70-79yrs >42 mL/min Normal 80 and above >35 mL/min Normal Female GFR Interpretation 20-39 yrs >60 mL/min Normal 40-49 yrs >58 mL/min Normal 50-59 yrs >51 mL/min Normal 60-69 yrs >45 mL/min Normal 70-79 yrs >39 mL/min Normal 80 and above >32 mL/min Normal ID Date Data Source [id number] 07/18/2019 02:22:[address] [facility] Name Value Range Interpretation Code Description Data Tania rce(s) Supporting Document(s) CBC NO DIFF [facility] ital COMPLETE BLOOD COUNT Leukocytes [#/volume] in Blood by Automated count 7.9 10^3/uL 4.2 - 1 1.0 [facility] Erythrocytes [#/volume] in Blood by Automated count 3.22 10^6/uL 4. 50 - 6.30 L [facility] Hemoglobin [Mass/volume] in Blood 9.7 g/dL 14.0 - 16.0 L [facility] Hematocrit [Volume Fraction] of Blood by Automated count 31.3 % 4 1.0 - 51.0 L [facility] Erythrocyte mean corpuscular volume [Entitic volume] by Auto mated count 97.2 fL 80.0 - 94.0 H [facility] Erythrocyte mean corpuscular hemoglobin [Entitic mass] by Automated count 30.1 pg 27.0 - 34.0 [facility] Erythrocyte mean corpuscular hemoglobin concentration [Mass/volume] by Automated count 31.0 g/dL 31.0 - 36.0 [facility] Erythrocyte distribution width [Ratio] by Automated count 15.2 % 11.5 - 14.8 H [facility] Platelets [#/volume] in Blood by Automated count 319 10^3/uL 150 - 45 0 [facility] Platelet mean volume [Entitic volume] in Blood by Automated count 10.5 fL 7.4 - 10.4 H [facility] ID Date Data Source [id number] 07/10/2019 02:23:10 PM [facility] Name Value Range Interpretation Code Description Data Tania rce(s) Supporting Document(s) Progress Note [facility] CKQWGp9yJsHYAtXp41/FVZywEVBwh3UxOAfhFIa1EOlzPSPzQ7XdNXR7hZ8xVRI8EZgCNkJvMiVzFCNk lbm [file] 7e4eMB++bP9zW834c25uY+723EunH34qssI/4H2vnP Af+EoqLjNRdUq31C+K2G8h3nVB0BAaE/YCzW7bGUJYDrnbpctVbeqT/5a/FZS2v+HJMgt5m0sOhN+Vup pHZ5hlPVrc7VfuSdNk+Io2K8H2OaBA+U+EPw5CfJC2wfuDa21hEaIje96gr3jG/V1fyq0k8aS7L8m+38 N40PzN+7kheUzN2H/APt/UbJP6ljRp26qEp6zNGxZg BoAdMIgYRznX/q9AH5+phPN4NHgQDYlNejpa5+a+jJS761uJhOOkNHT+Yb6Ik1x2Kk6pw13Q1gFMxnV7 kADXu0oz7GiL+9v72Z1Wk1bw4M4zLhCxK889OpmbP+p7cQcifxp66/D/Thread Cutter Tender+e/B/dQ4x1qKsxcC41D+B [file] AgICAgICAgICAgICAgICAgICAgICAgICAgICAgICAgICAgICAgICAgICAgICAgICAgICAgICAgICAgIC AgICAgICAgICAgICAgICAgICAgICAgICAgICAgICAg ICAgDQogICAgICAgICAgICAgICAgICAgICAgICAgICAgICAgICAgICAgICAgICAgICAgICAgICAgICAg ICAgICAgICAgICAgICAgICAgICAgICAgICAgICAgICAgICAgICAgICAgICAgDQogICAgICAgICAgICAg ICAgICAgICAgICAgICAgICAgICAgICAgICAgICAgIC AgICAgICAgICAgICAgICAgICAgICAgICAgICAgICAgICAgICAgICAgICAgICAgICAgICAgICAgDQogIC AgICAgICAgICAgICAgICAgICAgICAgICAgICAgICAgICAgICAgICAgICAgICAgICAgICAgICAgICAgIC AgICAgICAgICAgICAgICAgICAgICAgICAgICAgICAg ICAgICAgDQogICAgICAgICAgICAgICAgICAgICAgICAgICAgICAgICAgICAgICAgICAgICAgICAgICAg ICAgICAgICAgICAgICAgICAgICAgICAgICAgICAgICAgICAgICAgICAgICAgICAgDQogICAgICAgICAg ICAgICAgICAgICAgICAgICAgICAgICAgICAgICAgIC AgICAgICAgICAgICAgICAgICAgICAgICAgICAgICAgICAgICAgICAgICAgICAgICAgICAgICAgICAgDQ ogICAgICAgICAgICAgICAgICAgICAgICAgICAgICAgICAgICAgICAgICAgICAgICAgICAgICAgICAgIC AgICAgICAgICAgICAgICAgICAgICAgICAgICAgICAg ICAgICAgICAgDQogICAgICAgICAgICAgICAgICAgICAgICAgICAgICAgICAgICAgICAgICAgICAgICAg ICAgICAgICAgICAgICAgICAgICAgICAgICAgICAgICAgICAgICAgICAgICAgICAgICAgDQogICAgICAg ICAgICAgICAgICAgICAgICAgICAgICAgICAgICAgIC AgICAgICAgICAgICAgICAgICAgICAgICAgICAgICAgICAgICAgICAgICAgICAgICAgICAgICAgICAgIC AgDQogICAgICAgICAgICAgICAgICAgICAgICAgICAgICAgICAgICAgICAgICAgICAgICAgICAgICAgIC AgICAgICAgICAgICAgICAgICAgICAgICAgICAgICAg JRAaSQViGDXiZAWbESb9A5xpCNGwZJTpIM0rJRb0Mf8+CFyHDzIsINT1xzDydA6BQD0ih3RzHNyhGRRs i0IgIYw1PI5UPJXxZOktXB9KGEqyaa7BSSYiMFUajEPLa7lxQbPtJEI1NQZwCytbAP6PGJJnM4zkmbPk IDUgMCBSIDcgMCBSIDkgMCBSIDExIDAgUiBdDQogIC 5Gb4PjrDV5MEm+Zy7NZF8fj3MdKWnuEjJhYQ9vug4MJKmPVzBkR7RyyrM4TOY7VKYkQx5NQLLzQIDgjJ TvSACvJAQMFyYzZ6QfjX11ZGBTUf1+IQnvlwEuKiuLPwA1TVGzn8MbHVs1IF5LCHKcMGk0uPFsJOUeQ3 Gob3RdSa69CMYvOdauEl0fSMUwBI4eJhDXe71rf95m LXNUTRE4LYLrKCPtMvIiEEDdUMgsWERAOIpMVsWoS3Fut4MlPmW4FXQvLwHrEIydAATmBaQ3XW51hMcb DB6RKUBrDFDgHH62CNF8PYToEr5ZKl0QWwPlWB2imw9DJanrFCNgKxgCUtu1QZkaSD2BfGEsJ3CfcCUx s8sNXtVjS4NBPBZ5GCRrHi2PXABeMoZxBZUkWQfeAN 4lWQSwPYFLkWxsoxJ7ND2XIX2dzdSoCD7STbFtLh1dCn4XNyEnI1TnV9AfSMGvBZXWEKpiFX6QLLpoFW 7hAG4Ac0ZUeZAjhZ6bxf0BFICrENYuHpjpjx8IZkjaC5C0sYeoZNOhXypfTDLAXSpbBY2BHCNvCAB6ZE TpTjKqDUIGKtUrL30pHP9SG1Ltv71gGoH2VMGzYuHw LDqfFM45gTblqmXnjMAtyHeuQD5MBc4+DQplbmRvYmoNCnhyZWYNCjAgMzANCjAwMDAwMDAwMDAgNjU1 TuKvEe4DEFTbUGMwCPNcQfFnOPCfYGZdLAqsGJKoMPDhXPUfBKIrRBYbEV5TEzXpOKQzFpS4ISSpILXm FKBfpg4FGMUpMOYdDCT4EdSzWDHaWBOdTBqbFXRhHS CoBYPyFFFdQKDbKC6TXjXfBBTtZMA1SaDgZPDsXDBioh6IQKSzEHEhEqzsRZKpFCTeBHZiSEocFBQhTU V5HMZ1CPFlGWHoUY5AWnKpTVGuYIddPlDwMPSpRCOnph4BRUQlRYGlOXK7JKKtGLGsHLRqFUdnOKNlHS LqLRY1ZCKtMRXqLM1UUrLtMJBgLZD7CVSpHBNjCUTh ts9QXXRdIRFoLaJ4FvAmGYFjPAEtCHdnMGIrHILoHBscJGTpLORaUN9DHaNwTHVeMDMkOKEoTBMuUCMc lq4DAMBxENZiBJKxRbStCKXvURXhSSxfTAXsJPR1OnL8GUNfPUVeCM3BJdDkBUDlMJX1XNYaPKVpGZHc dm1SYJJsFRFoLAhvSfAmWUCqVOMaJOcrNITfJGC8CM M5FUDoOFEnBQ0KLpBuEVBgNhEiKlOjHEVhLWXvhz4HJQJiEVFlTiXdNxStANLnFERfDGasSGYdJCB4Fq SbINNpUZOgGC2HWuDkCJKuLrQ3WczhWIUvHONune4FJEZoYNCsZGNrKGVuYJRzCLBcEVwnUBSzNIAnZJ TpNQYtEVQeOQ4SGtPtMMFfHbS5KFbsUHFiKSRahl0C OAChYCZeBtc7PACuABAuOZJpBZasRVOfRDVhTORrFOCsQDPvLO1LIlBzZOfaQHXHCah3HTlpT5e8UGOx ES2IS0Ouy4FjUvxpYOWKILjoJA6werXeUAAhGo1AG0cBJzfuPRSfBWU6UVy0SMI3PWSnLGKmT0Z8F8Qi BENhKYMxEy0oISCoY9N8JAHiWynvLXGdPzIfCAXbUS D9POSxREFcThQ4ReAyDP9RHg7YFlO4JNM7lLAcHn0EWdViHyJLTtBlSK7LIUb= ID Date Data Source [id number] 07/10/2019 12:23:[address] [facility] Name Value Range Interpretation Code Description Data Tania rce(s) Supporting Document(s) Erythrocyte sedimentation rate by Westergren method 25 mm/hr 0 - 20 H [facility] SED RATE REENTER 25 [facility] ID Date Data Source [id number] 07/10/2019 12:07:[address] [facility] Name Value Range Interpretation Code Description Data Tania rce(s) Supporting Document(s) C reactive protein [Mass/volume] in Serum or Plasma by High sensitivity method 11.53 MG/L 1.00 - 3.00 H [facility] CDC/S HS-CRP CUT-OFF: RELATIVE RISK: <1.0 mg/L Low 1.0 - 3.0 mg/L Average >3.0 mg/L High Optimally, the average of HS-CRP results repeated two weeks apart should be used for risk assessment. ID Date Data Source [id number] 07/10/2019 12:07:[address] [facility] Name Value Range Interpretation Code Description Data Tania rce(s) Supporting Document(s) COMPREHENSIVE METABOLIC PANEL [facility] COMPREHENSIVE METABOLIC PANEL Sodium [Moles/volume] in Serum or Plasma 138 mEq/L 134 - 153 [facility] Potassium [Moles/volume] in Serum or Plasma 4.7 mEq/L 3.6 - 5.0 [facility] Chloride [Moles/volume] in Serum or Plasma 103 mEq/L 98 - 107 [facility] Carbon dioxide, total [Moles/volume] in Serum or Plasma 26 MEQ/L 22 - 30 [facility] Glucose [Mass/volume] in Serum or Plasma 183 MG/DL 65 - 110 H [facility] BUN 17 MG/DL 7 - 21 [facility] al Creatinine [Mass/volume] in Serum or Plasma 0.9 MG/DL 0.7 - 1.5 [facility] BUN/CREAT 19 8 - 27 [facility] Protein [Mass/volume] in Serum or Plasma 6.3 G/DL 6.3 - 8.2 [facility] Albumin [Mass/volume] in Serum or Plasma 3.3 G/DL 3.9 - 5.0 L [facility] Globulin [Mass/volume] in Serum by calculation 3.0 GM/DL 2.4 - 3.2 [facility] A/G RATIO 1.1 0.8 - 2.0 [facility] Calcium [Mass/volume] in Serum or Plasma 9.0 MG/DL 8.4 - 10.2 [facility] Bilirubin.total [Mass/volume] in Serum or Plasma 0.7 MG/DL 0.2 - 1.3 [facility] Alkaline phosphatase [Enzymatic activity/volume] in Serum or Plasma 168 U/L 38 - 126 H [facility] Aspartate aminotransferase [Enzymatic activity/volume] in Serum or Plasma 15 U/L 5 - 40 [facility] Alanine aminotransferase [Enzymatic activity/volume] in Seru m or Plasma 15 U/L 7 - 56 [facility] Anion gap 3 in Serum or Plasma 9.0 mmol/L 8.0 - 16.0 [facility] AGE [address] [facility] al NON-AA GFR >60 mL/min [facility] ital AFR AMER GFR >60 mL/min [facility] Male GFR In terprentation 20-49 yrs >60 mL/min Normal 50-59 yrs >56 mL/min Normal 60-69 yrs >49 mL/min Normal 70-79yrs >42 mL/min Normal 80 and above >35 mL/min Normal Female GFR Interpretation 20-39 yrs >60 mL/min Normal 40-49 yrs >58 mL/min Normal 50-59 yrs >51 mL/min Normal 60-69 yrs >45 mL/min Normal 70-79 yrs >39 mL/min Normal 80 and above >32 mL/min Normal ID Date Data Source [id number] 07/10/2019 11:56:00 AM EST [facility] Name Value Range Interpretation Code Description Data Tania rce(s) Supporting Document(s) CBC W/AUTOMATED DIFF [facility] COMPLETE BLOOD COUNT Leukocytes [#/volume] in Blood by Automated count 6.4 10^3/uL 4.2 - 1 1.0 [facility] Erythrocytes [#/volume] in Blood by Automated count 2.87 10^6/uL 4. 50 - 6.30 L [facility] Hemoglobin [Mass/volume] in Blood 8.7 g/dL 14.0 - 16.0 L [facility] Hematocrit [Volume Fraction] of Blood by Automated count 27.7 % 4 1.0 - 51.0 L [facility] Erythrocyte mean corpuscular volume [Entitic volume] by Auto mated count 96.5 fL 80.0 - 94.0 H [facility] Erythrocyte mean corpuscular hemoglobin [Entitic mass] by Automated count 30.3 pg 27.0 - 34.0 [facility] Erythrocyte mean corpuscular hemoglobin concentration [Mass/volume] by Automated count 31.4 g/dL 31.0 - 36.0 [facility] Erythrocyte distribution width [Ratio] by Automated count 15.2 % 11.5 - 14.8 H [facility] Platelets [#/volume] in Blood by Automated count 290 10^3/uL 150 - 45 0 [facility] Platelet mean volume [Entitic volume] in Blood by Automated count 10.0 fL 7.4 - 10.4 [facility] Neutrophils/100 leukocytes in Blood by Automated count 73.5 % 37. 0 - 80.0 [facility] Lymphocytes/100 leukocytes in Blood by Manual count 14.8 % 25.0 - 40.0 L [facility] Monocytes/100 leukocytes in Blood by Automated count 5.6 % 3.0 - 8.0 [facility] Eosinophils/100 leukocytes in Blood by Automated count 5.0 % 0.0 - 7.0 [facility] Basophils/100 leukocytes in Blood by Automated count 0.8 % 0.0 - 2.0 [facility] %IG 0.3 % 0.0 - 0.0 H [facility] al %NRBC 0.0 % 0.0 - 0.0 [facility] al Neutrophils [#/volume] in Blood by Automated count 4.71 10^3/uL 2.00 - 6.90 [facility] Lymphocytes [#/volume] in Blood by Automated count 0.95 10^3/uL 0.60 - 3.40 [facility] Monocytes [#/volume] in Blood by Automated count 0.36 10^3/uL 0.00 - 0.90 [facility] Eosinophils [#/volume] in Blood by Automated count 0.32 10^3/uL 0.00 - 0.70 [facility] Basophils [#/volume] in Blood by Automated count 0.05 10^3/uL 0.00 - 0.20 [facility] #IG 0.02 10^3/uL 0.00 - 0.10 [facility] #NRBC 0.00 10^3/uL 0.00 - 0.00 [facility] ospital MANUAL DIFF NOT INDICATED [facility] RBC MORPH NOT INDICATED [facility] ID Date Data Source [id number] 07/03/2019 05:15:[address] [facility] Name Value Range Interpretation Code Description Data Tania rce(s) Supporting Document(s) C reactive protein [Mass/volume] in Serum or Plasma by High sensitivity method 14.39 MG/L 1.00 - 3.00 H [facility] CDC/S HS-CRP CUT-OFF: RELATIVE RISK: <1.0 mg/L Low 1.0 - 3.0 mg/L Average >3.0 mg/L High Optimally, the average of HS-CRP results repeated two weeks apart should be used for risk assessment. ID Date Data Source [id number] 07/03/2019 05:15:[address] [facility] Name Value Range Interpretation Code Description Data Tania rce(s) Supporting Document(s) COMPREHENSIVE METABOLIC PANEL [facility] COMPREHENSIVE METABOLIC PANEL Sodium [Moles/volume] in Serum or Plasma 137 mEq/L 134 - 153 [facility] Potassium [Moles/volume] in Serum or Plasma 4.9 mEq/L 3.6 - 5.0 [facility] Chloride [Moles/volume] in Serum or Plasma 100 mEq/L 98 - 107 [facility] Carbon dioxide, total [Moles/volume] in Serum or Plasma 23 MEQ/L 22 - 30 [facility] Glucose [Mass/volume] in Serum or Plasma 149 MG/DL 65 - 110 H [facility] BUN 18 MG/DL 7 - 21 [facility] al Creatinine [Mass/volume] in Serum or Plasma 0.9 MG/DL 0.7 - 1.5 [facility] BUN/CREAT 20 8 - 27 [facility] al Protein [Mass/volume] in Serum or Plasma 6.3 G/DL 6.3 - 8.2 [facility] Albumin [Mass/volume] in Serum or Plasma 3.2 G/DL 3.9 - 5.0 L [facility] Globulin [Mass/volume] in Serum by calculation 3.1 GM/DL 2.4 - 3.2 [facility] A/G RATIO 1.0 0.8 - 2.0 [facility] Calcium [Mass/volume] in Serum or Plasma 8.8 MG/DL 8.4 - 10.2 [facility] Bilirubin.total [Mass/volume] in Serum or Plasma 0.7 MG/DL 0.2 - 1.3 [facility] Alkaline phosphatase [Enzymatic activity/volume] in Serum or Plasma 161 U/L 38 - 126 H [facility] Aspartate aminotransferase [Enzymatic activity/volume] in Serum or Plasma 18 U/L 5 - 40 [facility] Alanine aminotransferase [Enzymatic activity/volume] in Seru m or Plasma 15 U/L 7 - 56 [facility] Anion gap 3 in Serum or Plasma 14.0 mmol/L 8.0 - 16.0 [facility] 84 [facility]60 [facility]/min [facility] ital AFR AMER GFR >60 mL/min [facility] Male GFR In terprentation 20-49 yrs >60 mL/min Normal 50-59 yrs >56 mL/min Normal 60-69 yrs >49 mL/min Normal 70-79yrs >42 mL/min Normal 80 and above >35 mL/min Normal Female GFR Interpretation 20-39 yrs >60 mL/min Normal 40-49 yrs >58 mL/min Normal 50-59 yrs >51 mL/min Normal 60-69 yrs >45 mL/min Normal 70-79 yrs >39 mL/min Normal 80 and above >32 mL/min Normal ID Date Data Source [id number] 07/03/2019 05:04:[address] [facility] Name Value Range Interpretation Code Description Data Tania rce(s) Supporting Document(s) Erythrocyte sedimentation rate by Westergren method 60 mm/hr 0 - 20 H [facility] SED RATE REENTER 60 [facility] ID Date Data Source [id number] 07/03/2019 04:46:[address] [facility] Name Value Range Interpretation Code Description Data Tania rce(s) Supporting Document(s) CBC W/AUTOMATED DIFF [facility] COMPLETE BLOOD COUNT Leukocytes [#/volume] in Blood by Automated count 8.7 10^3/uL 4.2 - 1 1.0 [facility] Erythrocytes [#/volume] in Blood by Automated count 2.62 10^6/uL 4. 50 - 6.30 L [facility] Hemoglobin [Mass/volume] in Blood 8.0 g/dL 14.0 - 16.0 L [facility] Hematocrit [Volume Fraction] of Blood by Automated count 24.9 % 4 1.0 - 51.0 L [facility] Erythrocyte mean corpuscular volume [Entitic volume] by Auto mated count 95.0 fL 80.0 - 94.0 H [facility] Erythrocyte mean corpuscular hemoglobin [Entitic mass] by Automated count 30.5 pg 27.0 - 34.0 [facility] Erythrocyte mean corpuscular hemoglobin concentration [Mass/volume] by Automated count 32.1 g/dL 31.0 - 36.0 [facility] Erythrocyte distribution width [Ratio] by Automated count 15.1 % 11.5 - 14.8 H [facility] Platelets [#/volume] in Blood by Automated count 310 10^3/uL 150 - 45 0 [facility] Platelet mean volume [Entitic volume] in Blood by Automated count 10.0 fL 7.4 - 10.4 [facility] Neutrophils/100 leukocytes in Blood by Automated count 70.7 % 37. 0 - 80.0 [facility] Lymphocytes/100 leukocytes in Blood by Manual count 18.2 % 25.0 - 40.0 L [facility] Monocytes/100 leukocytes in Blood by Automated count 6.2 % 3.0 - 8.0 [facility] Eosinophils/100 leukocytes in Blood by Automated count 4.0 % 0.0 - 7.0 [facility] Basophils/100 leukocytes in Blood by Automated count 0.7 % 0.0 - 2.0 [facility] %IG 0.2 % 0.0 [facility] % 0.0 - 0.0 [facility] al Neutrophils [#/volume] in Blood by Automated count 6.16 10^3/uL 2.00 - 6.90 [facility] Lymphocytes [#/volume] in Blood by Automated count 1.59 10^3/uL 0.60 - 3.40 [facility] Monocytes [#/volume] in Blood by Automated count 0.54 10^3/uL 0.00 - 0.90 [facility] Eosinophils [#/volume] in Blood by Automated count 0.35 10^3/uL 0.00 - 0.70 [facility] Basophils [#/volume] in Blood by Automated count 0.06 10^3/uL 0.00 - 0.20 [facility] #IG 0.02 10^3/uL 0.00 - 0.10 [facility] #NRBC 0.00 10^3/uL 0.00 - 0.00 [facility] MANUAL DIFF NOT INDICATED [facility] RBC MORPH NOT INDICATED [facility] ID Date Data Source [id number] 06/29/2019 07:35:00 PM EST [facility] Name Value Range Interpretation Code Description Data Tania rce(s) Supporting Document(s) COMPREHENSIVE METABOLIC PANEL [facility] COMPREHENSIVE METABOLIC PANEL Sodium [Moles/volume] in Serum or Plasma 136 mEq/L 134 - 153 [facility] Potassium [Moles/volume] in Serum or Plasma 4.8 mEq/L 3.6 - 5.0 [facility] Chloride [Moles/volume] in Serum or Plasma 99 mEq/L 98 - 107 [facility] Carbon dioxide, total [Moles/volume] in Serum or Plasma 26 MEQ/L 22 - 30 [facility] Glucose [Mass/volume] in Serum or Plasma 126 MG/DL 65 - 110 H [facility] BUN 12 MG/DL 7 - 21 [facility] al Creatinine [Mass/volume] in Serum or Plasma 0.9 MG/DL 0.7 - 1.5 [facility] BUN/CREAT 13 8 - 27 [facility] al Protein [Mass/volume] in Serum or Plasma 6.7 G/DL 6.3 - 8.2 [facility] Albumin [Mass/volume] in Serum or Plasma 3.2 G/DL 3.9 - 5.0 L [facility] Globulin [Mass/volume] in Serum by calculation 3.5 GM/DL 2.4 - 3.2 H [facility] A/G RATIO 0.9 0.8 - 2.0 [facility] Calcium [Mass/volume] in Serum or Plasma 9.0 MG/DL 8.4 - 10.2 [facility] Bilirubin.total [Mass/volume] in Serum or Plasma <0.7 MG/DL 0.2 - 1.3 [facility] Alkaline phosphatase [Enzymatic activity/volume] in Serum or Plasma 159 U/L 38 - 126 H [facility] Aspartate aminotransferase [Enzymatic activity/volume] in Serum or Plasma 20 U/L 5 - 40 [facility] Alanine aminotransferase [Enzymatic activity/volume] in Seru m or Plasma 17 U/L 7 - 56 [facility] Anion gap 3 in Serum or Plasma 11.0 mmol/L 8.0 - 16.0 [facility] 84 [facility] >60 [facility]/min [facility] ital AFR AMER GFR >60 mL/min [facility] Male GFR In terprentation 20-49 yrs >60 mL/min Normal 50-59 yrs >56 mL/min Normal 60-69 yrs >49 mL/min Normal 70-79yrs >42 mL/min Normal 80 and above >35 mL/min Normal Female GFR Interpretation 20-39 yrs >60 mL/min Normal 40-49 yrs >58 mL/min Normal 50-59 yrs >51 mL/min Normal 60-69 yrs >45 mL/min Normal 70-79 yrs >39 mL/min Normal 80 and above >32 mL/min Normal ID Date Data Source [id number] 06/26/2019 05:25:[address] [facility] Name Value Range Interpretation Code Description Data Tania rce(s) Supporting Document(s) C reactive protein [Mass/volume] in Serum or Plasma by High sensitivity method 67.29 MG/L 1.00 - 3.00 H [facility] HS-CRP CUT-OFF: RELATIVE RISK: <1.0 mg/L Low 1.0 - 3.0 mg/L Average >3.0 mg/L High Optimally, the average of HS-CRP results repeated two weeks apart should be used for risk assessment. ID Date Data Source [id number] 06/26/2019 05:15:[address] [facility] Name Value Range Interpretation Code Description Data Tania rce(s) Supporting Document(s) Erythrocyte sedimentation rate by Westergren method 50 mm/hr 0 - 20 H [facility] SED RATE REENTER 50 [facility] ID Date Data Source [id number] 06/26/2019 04:17:[address] [facility] Name Value Range Interpretation Code Description Data Tania rce(s) Supporting Document(s) COMPREHENSIVE METABOLIC PANEL [facility] COMPREHENSIVE METABOLIC PANEL Sodium [Moles/volume] in Serum or Plasma 139 mEq/L 134 - 153 [facility] Potassium [Moles/volume] in Serum or Plasma 4.3 mEq/L 3.6 - 5.0 [facility] Chloride [Moles/volume] in Serum or Plasma 99 mEq/L 98 - 107 [facility] Carbon dioxide, total [Moles/volume] in Serum or Plasma 27 MEQ/L 22 - 30 [facility] Glucose [Mass/volume] in Serum or Plasma 264 MG/DL 65 - 110 H [facility] BUN 11 MG/DL 7 - 21 [facility] Creatinine [Mass/volume] in Serum or Plasma 1.0 MG/DL 0.7 - 1.5 [facility] BUN/CREAT 11 8 - 27 [facility] Protein [Mass/volume] in Serum or Plasma 6.3 G/DL 6.3 - 8.2 [facility] Albumin [Mass/volume] in Serum or Plasma 3.2 G/DL 3.9 - 5.0 L [facility] Globulin [Mass/volume] in Serum by calculation 3.1 GM/DL 2.4 - 3.2 [facility] A/G RATIO 1.0 0.8 - 2.0 [facility] Calcium [Mass/volume] in Serum or Plasma 8.7 MG/DL 8.4 - 10.2 [facility] Bilirubin.total [Mass/volume] in Serum or Plasma <0.7 MG/DL 0.2 - 1.3 [facility] Alkaline phosphatase [Enzymatic activity/volume] in Serum or Plasma 153 U/L 38 - 126 H [facility] Aspartate aminotransferase [Enzymatic activity/volume] in Serum or Plasma 24 U/L 5 - 40 [facility] Alanine aminotransferase [Enzymatic activity/volume] in Seru m or Plasma 18 U/L 7 - 56 [facility] Anion gap 3 in Serum or Plasma 13.0 mmol/L 8.0 - 16.0 [facility] AGE 84 yrs [facility] NON-AA GFR >60 mL/min [facility] ital AFR AMER GFR >60 mL/min [facility] Male GFR In terprentation 20-49 yrs >60 mL/min Normal 50-59 yrs >56 mL/min Normal 60-69 yrs >49 mL/min Normal 70-79yrs >42 mL/min Normal 80 and above >35 mL/min Normal Female GFR Interpretation 20-39 yrs >60 mL/min Normal 40-49 yrs >58 mL/min Normal 50-59 yrs >51 mL/min Normal 60-69 yrs >45 mL/min Normal 70-79 yrs >39 mL/min Normal 80 and above >32 mL/min Normal ID Date Data Source [id number] 06/26/2019 03:52:00 PM EST [facility] Name Value Range Interpretation Code Description Data Tania rce(s) Supporting Document(s) CBC W/AUTOMATED DIFF [facility] COMPLETE BLOOD COUNT Leukocytes [#/volume] in Blood by Automated count 9.8 10^3/uL 4.2 - 1 1.0 [facility] Erythrocytes [#/volume] in Blood by Automated count 2.55 10^6/uL 4. 50 - 6.30 L [facility] Hemoglobin [Mass/volume] in Blood 7.8 g/dL 14.0 - 16.0 L [facility] Hematocrit [Volume Fraction] of Blood by Automated count 24.2 % 4 1.0 - 51.0 L [facility] Erythrocyte mean corpuscular volume [Entitic volume] by Auto mated count 94.9 fL 80.0 - 94.0 H [facility] Erythrocyte mean corpuscular hemoglobin [Entitic mass] by Automated count 30.6 pg 27.0 - 34.0 [facility] Erythrocyte mean corpuscular hemoglobin concentration [Mass/volume] by Automated count 32.2 g/dL 31.0 - 36.0 [facility] Erythrocyte distribution width [Ratio] by Automated count 15.4 % 11.5 - 14.8 H [facility] Platelets [#/volume] in Blood by Automated count 434 10^3/uL 150 - 45 0 [facility] Platelet mean volume [Entitic volume] in Blood by Automated count 9.6 fL 7.4 - 10.4 [facility] Neutrophils/100 leukocytes in Blood by Automated count 79.3 % 37. 0 - 80.0 [facility] Lymphocytes/100 leukocytes in Blood by Manual count 13.3 % 25.0 - 40.0 L [facility] Monocytes/100 leukocytes in Blood by Automated count 4.8 % 3.0 - 8.0 [facility] Eosinophils/100 leukocytes in Blood by Automated count 1.9 % 0.0 - 7.0 [facility] Basophils/100 leukocytes in Blood by Automated count 0.4 % 0.0 - 2.0 [facility] %IG 0.3 % 0.0 - 0.0 H [facility] %NRBC 0.0 % 0.0 - 0.0 [facility] [#/[facility]] in Blood by Automated count 7.79 10^3/uL 2.00 - 6.90 H [facility] Lymphocytes [#/volume] in Blood by Automated count 1.31 10^3/uL 0.60 - 3.40 [facility] Monocytes [#/volume] in Blood by Automated count 0.47 10^3/uL 0.00 - 0.90 [facility] Eosinophils [#/volume] in Blood by Automated count 0.19 10^3/uL 0.00 - 0.70 [facility] Basophils [#/volume] in Blood by Automated count 0.04 10^3/uL 0.00 - 0.20 [facility] #IG 0.03 10^3/uL 0.00 - 0.10 [facility] #NRBC 0.00 10^3/uL 0.00 - 0.00 [facility] MANUAL DIFF NOT INDICATED [facility] RBC MORPH NOT INDICATED [facility] ID Date Data Source [id number] 06/26/2019 08:43:26 AM EST [facility] Name Value Range Interpretation Code Description Data Tania rce(s) Supporting Document(s) Progress Note [facility] PDXRBi7wPoCMHtTn60/LADvzLSFwd9GpTVrqFAn9HRolLZHwS6MfQCH9bU8rQDI9GVzYEoJjEFxnUpAj [facility] DlOvyRKrVlOFKqMtoCQjSvQTafJtzsiKNxTB7PvEE1TLQnZ67qADNxXGVmQ3KqWQCgZUw+Bg4ONZFeqG UsWK8LTihH1P9Gz0rJMT8FcI/ZOQTXR5pI6nfDTTC35K11I9p7bQ4dU89NdYT5SjaOASeK/u4hXxjRMV +Bf7UFXTj0U0DYt55R0/F9UBGMuKu//rEdAsA2mwc0 f/9nklkzPDd//hCHAYvqbqNNu3yAvoG1lLsLU1q/KQu5X04mlFUuLZY9Vw8V03kjPa0X3ncbCiCw8TH7 16vTz8cwld3jM84WbBTdol6eV+AVQuaIvx8Qs+SoRD37KCBdaAoceRILDmdD0cDK6zTnREoxgez2cCDs txbxAKD1j8oe6q4Ag2SivR06bXX3UAEES0yt8WFD76 jf5rGcjqIO+14c+Parker/o3eMoQZI/o1UBja8YsPxB3orPxhd30DOakgv2QiI43WxoZX5E2jRFBXd8F+zT [file] ID Date Data Source [id number] 06/22/2019 07:01:17 AM [facility] Name Value Range Interpretation Code Description Data Tania rce(s) Supporting Document(s) Operative Note [facility] EHATSt5iElNTEvAn20/MDPlbLKRss5FyYKsyNIr4BMthBUIrC0GgNTL8eD8gUMQ4TDfFUmPeUFifAaA2 lbm [file] KiclY3nqPxARapArS1RC9UPIIYF4RUQl== ID Date Data Source [id number] 06/19/2019 05:39:00 PM EST [facility] Name Value Range Interpretation Code Description Data Tania rce(s) Supporting Document(s) Erythrocyte sedimentation rate by Westergren method 50 mm/hr 0 - 20 H [facility] SED RATE REENTER 50 [facility] ID Date Data Source [id number] 06/19/2019 04:56:00 PM EST [facility] Name Value Range Interpretation Code Description Data Tania rce(s) Supporting Document(s) C reactive protein [Mass/volume] in Serum or Plasma by High sensitivity method 135.58 MG/L 1.00 - 3.00 H [facility] CDC/S HS-CRP CUT-OFF: RELATIVE RISK: <1.0 mg/L Low 1.0 - 3.0 mg/L Average >3.0 mg/L High Optimally, the average of HS-CRP results repeated two weeks apart should be used for risk assessment. ID Date Data Source [id number] 06/19/2019 04:56:[address] [facility] Name Value Range Interpretation Code Description Data Tania rce(s) Supporting Document(s) CBC W/AUTOMATED DIFF [facility] COMPLETE BLOOD COUNT Leukocytes [#/volume] in Blood by Automated count 11.3 10^3/uL 4.2 - 11.0 H [facility] Erythrocytes [#/volume] in Blood by Automated count 2.69 10^6/uL 4. 50 - 6.30 L [facility] Hemoglobin [Mass/volume] in Blood 8.0 g/dL 14.0 - 16.0 L [facility] Hematocrit [Volume Fraction] of Blood by Automated count 25.1 % 4 1.0 - 51.0 L [facility] Erythrocyte mean corpuscular volume [Entitic volume] by Auto mated count 93.3 fL 80.0 - 94.0 [facility] Erythrocyte mean corpuscular hemoglobin [Entitic mass] by Automated count 29.7 pg 27.0 - 34.0 [facility] Erythrocyte mean corpuscular hemoglobin concentration [Mass/volume] by Automated count 31.9 g/dL 31.0 - 36.0 [facility] Erythrocyte distribution width [Ratio] by Automated count 15.0 % 11.5 - 14.8 H [facility] Platelets [#/volume] in Blood by Automated count 439 10^3/uL 150 - 45 0 [facility] Platelet mean volume [Entitic volume] in Blood by Automated count 9.5 fL 7.4 - 10.4 [facility] Neutrophils/100 leukocytes in Blood by Automated count 79.7 % 37. 0 - 80.0 [facility] Lymphocytes/100 leukocytes in Blood by Manual count 13.6 % 25.0 - 40.0 L [facility] Monocytes/100 leukocytes in Blood by Automated count 5.7 % 3.0 - 8.0 [facility] Eosinophils/100 leukocytes in Blood by Automated count 0.4 % 0.0 - 7.0 [facility] Basophils/100 leukocytes in Blood by Automated count 0.2 % 0.0 - 2.0 [facility] %IG 0.4 % 0.0 - 0.0 [facility].0 % 0.0 - 0.0 [facility] al Neutrophils [#/volume] in Blood by Automated count 9.02 10^3/uL 2.00 - 6.90 H [facility] Lymphocytes [#/volume] in Blood by Automated count 1.54 10^3/uL 0.60 - 3.40 [facility] Monocytes [#/volume] in Blood by Automated count 0.64 10^3/uL 0.00 - 0.90 [facility] Eosinophils [#/volume] in Blood by Automated count 0.05 10^3/uL 0.00 - 0.70 [facility] Basophils [#/volume] in Blood by Automated count 0.02 10^3/uL 0.00 - 0.20 [facility] #IG 0.04 10^3/uL 0.00 - 0.10 [facility] #NRBC 0.00 10^3/uL 0.00 - 0.00 [facility] MANUAL DIFF NOT INDICATED [facility] RBC MORPH NOT INDICATED [facility] ID Date Data Source [id number] 06/19/2019 04:40:00 PM EST [facility] Name Value Range Interpretation Code Description Data Tania rce(s) Supporting Document(s) COMPREHENSIVE METABOLIC PANEL [facility] COMPREHENSIVE METABOLIC PANEL Sodium [Moles/volume] in Serum or Plasma 133 mEq/L 134 - 153 L [facility] Potassium [Moles/volume] in Serum or Plasma 5.0 mEq/L 3.6 - 5.0 [facility] Chloride [Moles/volume] in Serum or Plasma 99 mEq/L 98 - 107 [facility] Carbon dioxide, total [Moles/volume] in Serum or Plasma 20 MEQ/L 22 - 30 L [facility] Glucose [Mass/volume] in Serum or Plasma 271 MG/DL 65 - 110 H [facility] BUN 27 MG/DL 7 - 21 H [facility] Creatinine [Mass/volume] in Serum or Plasma 1.2 MG/DL 0.7 - 1.5 [facility] BUN/CREAT 23 8 - 27 [facility] Protein [Mass/volume] in Serum or Plasma 5.7 G/DL 6.3 - 8.2 L [facility] Albumin [Mass/volume] in Serum or Plasma 2.9 G/DL 3.9 - 5.0 L [facility] Globulin [Mass/volume] in Serum by calculation 2.8 GM/DL 2.4 - 3.2 [facility] A/G RATIO 1.0 0.8 - 2.0 [facility] Calcium [Mass/volume] in Serum or Plasma 8.6 MG/DL 8.4 - 10.2 [facility] Bilirubin.total [Mass/volume] in Serum or Plasma <0.7 MG/DL 0.2 - 1.3 [facility] Alkaline phosphatase [Enzymatic activity/volume] in Serum or Plasma 119 U/L 38 - 126 [facility] Aspartate aminotransferase [Enzymatic activity/volume] in Serum or Plasma 19 U/L 5 - 40 [facility] Alanine aminotransferase [Enzymatic activity/volume] in Seru m or Plasma 14 U/L 7 - 56 [facility] Anion gap 3 in Serum or Plasma 14.0 mmol/L 8.0 - 16.0 [facility] AGE 84 yrs [facility] NON-AA GFR >60 mL/min [facility] AFR AMER GFR >60 mL/min [facility] Male GFR In terprentation 20-49 yrs >60 mL/min Normal 50-59 yrs >56 mL/min Normal 60-69 yrs >49 mL/min Normal 70-79yrs >42 mL/min Normal 80 and above >35 mL/min Normal Female GFR Interpretation 20-39 yrs >60 mL/min Normal 40-49 yrs >58 mL/min Normal 50-59 yrs >51 mL/min Normal 60-69 yrs >45 mL/min Normal 70-79 yrs >39 mL/min Normal 80 and above >32 mL/min Normal ID Date Data Source [id number] 06/19/2019 04:38:[address] [facility] Name Value Range Interpretation Code Description Data Tania rce(s) Supporting Document(s) Vancomycin [Mass/volume] in Serum or Plasma --trough 17.3 ug/mL [facility] TROU H First trough is drawn 30 minutes prior to fourth dose. If patient is not hemodynamically stable, a trough is obtained as deemed medically necessary. If patient is hemodynamically stable, a trough should be drawn once a week. The trough is drawn 30 minutes prior to the next dose. 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 Infections Trough 20-25 mg/L *Severe Infections - Endocarditis, Osteomyelitis, Hospital Acquired Pneumonia, Sepsis ID Date Data Source [id number] 06/18/2019 12:41:02 PM [facility] Name Value Range Interpretation Code Description Data Tania rce(s) Supporting Document(s) History and Physical [facility] JFZEGj4qHiXYFzQt17/YTUekGOGul6HeEPqmIHd6CBgiLQSsJ8OoVPX7gP1fAPA6GPiSRaAdCCkzQhOi [facility] [file] ICAgICAgICAgICAgICAgICAgICAgICAgICAgICAgICAgICAgICAgICAgICAgICAgICAgICAgICAgICAg ICAgICAgICAgICANCiAgICAgICAgICAgICAgICAgIC AgICAgICAgICAgICAgICAgICAgICAgICAgICAgICAgICAgICAgICAgICAgICAgICAgICAgICAgICAgIC AgICAgICAgICAgICAgICAgICAgICANCiAgICAgICAgICAgICAgICAgICAgICAgICAgICAgICAgICAgIC AgICAgICAgICAgICAgICAgICAgICAgICAgICAgICAg ICAgICAgICAgICAgICAgICAgICAgICAgICAgICAgICANCiAgICAgICAgICAgICAgICAgICAgICAgICAg ICAgICAgICAgICAgICAgICAgICAgICAgICAgICAgICAgICAgICAgICAgICAgICAgICAgICAgICAgICAg ICAgICAgICAgICAgICANCiAgICAgICAgICAgICAgIC AgICAgICAgICAgICAgICAgICAgICAgICAgICAgICAgICAgICAgICAgICAgICAgICAgICAgICAgICAgIC AgICAgICAgICAgICAgICAgICAgICAgICANCiAgICAgICAgICAgICAgICAgICAgICAgICAgICAgICAgIC AgICAgICAgICAgICAgICAgICAgICAgICAgICAgICAg ICAgICAgICAgICAgICAgICAgICAgICAgICAgICAgICAgICANCiAgICAgICAgICAgICAgICAgICAgICAg ICAgICAgICAgICAgICAgICAgICAgICAgICAgICAgICAgICAgICAgICAgICAgICAgICAgICAgICAgICAg ICAgICAgICAgICAgICAgICANCiAgICAgICAgICAgIC AgICAgICAgICAgICAgICAgICAgICAgICAgICAgICAgICAgICAgICAgICAgICAgICAgICAgICAgICAgIC AgICAgICAgICAgICAgICAgICAgICAgICAgICANCiAgICAgICAgICAgICAgICAgICAgICAgICAgICAgIC AgICAgICAgICAgICAgICAgICAgICAgICAgICAgICAg ICAgICAgICAgICAgICAgICAgICAgICAgICAgICAgICAgICAgICANCiAgICAgICAgICAgICAgICAgICAg ICAgICAgICAgICAgICAgICAgICAgICAgICAgICAgICAgICAgICAgICAgICAgICAgICAgICAgICAgICAg ICAgICAgICAgICAgICAgICAgICANCjw/wQIiL8xqhZ QczuU4O7pgPm9CBd9NKS5ws7MoUDPeKFobrbMpOunNVmAoZCIwMotWMnp3ZYygJM1WvVYcO5ZgZ9GoQJ cnNM7URGZnEKWfjHSoQQRcXNYiAiM9LGOvSQzmWJ2JeNFwYUazAPNpLIWhOtWwYIQfGNAlPVYfMGVsHI LFKE8JXcJhF5GknB64CBAXXq8+DQplbmRvYmoNCjMx GADtg0OaCGi4SR7RYIXnAbpvy6RgTkPrEQYQAMzoJI5ZCTP1EEYtEXTsQg3DTQVmH758krBpZE6FPl5Q TbUeDI5njc5PRbOaQDDzKgfUXvn1HZnfGG6IbNJtJWqHUwHwCiooQ4LdCCQFgQN5TKMZVdHFALX0RPGd ChS5JcFeIRsnWAD8DGRfRQ4fVMefQQ8XPNL5KSavHT IeBYDqG5qSGrIdZOFsAwAbsPcaNV9LSwWvZ9RiuuHcaVZiPXDhXUBNCn6+DQplbmRvYmoNCjMzIDAgb2 AcLCd3NS0YIVIlTSgrOB6GXBFswE6eDLusRG4TOcXdKCFdTFGCIvEfW97whZYnBHr5Z9RqWyWkSEHqFh lsZXMgPDwvTmFtZXMgWyBdDQogID4+ID4+JIelVT7R CXabypGnHSQwXk1NMZFxWYEsCI6pYZCzYYZuY2G7kLpdQYOQVlWmA1cgxogkTQ0rAIAvH029wWawizSq QFWsFFPmGj6GLEQlBLP4PHWooQCiKiOpHGOUGVfxPZ7PaDFrPCM1cT3xFHcjVPKzXMVbQ5dKZuOalBky LY14qNcfjpXauLHdUUg+Ve9RAA4nu4ChBKe5zlRuEW wjHTE4BLdzJZBdFPNvXNKqEMS7XDB9ACSYMfXeJGSiQKUjOApyXQHxJPUruk5QXVBdITBrMQI6VVScDT TxSMMnJLxbKALfXSHlLFk6AFGmRNCdHE9DUyZjHPFaSAYdUNkcUYUcPIMcmv9XJHZcBNAkLkP5CvItVG PoONMtKCubNTUhMCXrVPfuFVEfQZRcCH7WSiBtZUXh RBviVRQbCNSwTKEgvh6SFQCgSOVhDwO6ARTeUXVjNBOcVEzlFBJcTZHcFJrfPSBzKFPfXC1JAsOzWKKk GMO2GeYdRXGbESAzhd0AIIHkRTRnUeO6AIOcTEMyDAThELzqYVEyQJIdZHyxDNMjOJWyWA4WUqKhWLCc MYQ5SBBnXPYcXRZylj2BDKVcUAKuPqt2EmJhQNPuVL CwWCsmUROgVEBlXAAtVPFhPHTsEE3SNzDoCERpLTY1LUyaEMSeUHEiqk8FFYCfWYUrUIM4DJQhONGeQI IiXCihAGPrRIC8Ugt9QPOxTKMcVA5VVbZrIZKyMENeTusuKZCmALBgnh8PFOGhLJRfSbVyBiXyBAYaXK UiGKhwATCyCGP8LrY3QVEvOJSrEE5QBnFiHPOxEwmn KATsSKBxCQHzvw9MFJFiRMHtGDEkBrUjEZDcVLYiNJwcBFJsAMR5ADPfYYHsSUEtXE2ICcGjPJIuNys5 YfMoQHCkDCZbvc1RHTKdAIOmUEwvLeSxWTJlLFYrHPrnZGRdIES2WSDsGNDkCQIoGW5LGcKuEQJcPtCh KQzuIQOtABHfor9BJGMxVEDzXNZtOrUwDSXqPPUqOJ pdZRBiWQSkGyC9HKWyZRMxED0YUnBjUIMrNpIeFUUrYRYyQZRgwa7QJTNeKWRsLiU0ZdIrTDEmECVvWJ ojZHNyOZQiMqTzGANsYVRuTN9UEhGjLCibREUVBdm4BSzxW3w1OCKjRS8TS7Pyw1DgLaDlZUAIKIrmSC 5lpyYwSHQtMz1AU2yIJqs6VYslQoXoGBG4W8BmG6S9 TmzkFWDrWzGnUVZ6KxBcJc9gHPa1LBG9OKN2BJWyU4WcBfwcCGM3K2GjYtT0QjMjTUSiMuZyJM7UVg8Z RvU7ZBB4wDFeCz0WHbI4ZuwOBfTxXS9JIVa= ID Date Data Source [id number] 06/15/2019 02:59:13 PM EST [facility] Name Value Range Interpretation Code Description Data Tania rce(s) Supporting Document(s) Discharge Summary [facility] JKBIHw5rBpXJSoCo83/SMAfjHJUda0NfNQdlGGt2FRvnYSDrV8WrQUW5gR3jWPL1URuNLyYrBGxrQaY2 lbm YfZbyYFaLnZSNbMbkUCtDqYSqsDxuqqEOiWI7HgLA5INKhU86kBOSaNSNcQ8ClMVN0UWP+Yq9JRAYevY RfCS0LOstV8M7ll2eVUH5p9L+waNEgAWKZy+Fb0CkatiVYmt9gEcHSfXvTkq97exYHvn4nA5NzMv5IVo YodPYHQSPnFWlHhzL579kSCYJG/y3vToH9zePN1V/1 BWhdCD1KS/1R3Dogh2ag/shuIg+4jnbC/WHun2W3Z4dfMxW/mTCXGWfhBQktwO96sTp6mLtuUR60SSh/ V2eMFz9q4UBVKM+BBngMQWxP6hdYIrpQKLzhmT3DfzAFjpAg7RVoqOyHj/jypJbgjG8ai3FDVf9gvHf5 uxyR8t0JVYxL3eJbVyBsZoReMrCJ8dgrRyj0QTuiMw MDIWnDCc5dcBtHw2jfWHBHEOzH8Vt4gEuLvxSK+550nK7w9vTqEwztp2nln8ERZytgSW6BeU5Gcxb7+B DvineY9M08TpnfEYwcgPSr1fI/Ug4Curt6kNsbqN0ycgIV7GS6niLpg+fbha3Zo5EcLmLUSUQ++7NMzS BIheeUjpEzdjyaxTZNLaPhqscZcXvTjdKJVirdnMXf [file] AgICAgICAgICAgICAgICAgICAgICAgICAgICAgICAgICAgICAgICAgICAgICAgICAgICAgICAgICAgIC AgICAgICANCiAgICAgICAgICAgICAgICAgICAgICAg ICAgICAgICAgICAgICAgICAgICAgICAgICAgICAgICAgICAgICAgICAgICAgICAgICAgICAgICAgICAg ICAgICAgICAgICAgICAgICANCiAgICAgICAgICAgICAgICAgICAgICAgICAgICAgICAgICAgICAgICAg ICAgICAgICAgICAgICAgICAgICAgICAgICAgICAgIC AgICAgICAgICAgICAgICAgICAgICAgICAgICANCiAgICAgICAgICAgICAgICAgICAgICAgICAgICAgIC AgICAgICAgICAgICAgICAgICAgICAgICAgICAgICAgICAgICAgICAgICAgICAgICAgICAgICAgICAgIC AgICAgICAgICANCiAgICAgICAgICAgICAgICAgICAg ICAgICAgICAgICAgICAgICAgICAgICAgICAgICAgICAgICAgICAgICAgICAgICAgICAgICAgICAgICAg ICAgICAgICAgICAgICAgICAgICANCiAgICAgICAgICAgICAgICAgICAgICAgICAgICAgICAgICAgICAg ICAgICAgICAgICAgICAgICAgICAgICAgICAgICAgIC AgICAgICAgICAgICAgICAgICAgICAgICAgICAgICANCiAgICAgICAgICAgICAgICAgICAgICAgICAgIC AgICAgICAgICAgICAgICAgICAgICAgICAgICAgICAgICAgICAgICAgICAgICAgICAgICAgICAgICAgIC AgICAgICAgICAgICANCiAgICAgICAgICAgICAgICAg ICAgICAgICAgICAgICAgICAgICAgICAgICAgICAgICAgICAgICAgICAgICAgICAgICAgICAgICAgICAg ICAgICAgICAgICAgICAgICAgICAgICANCiAgICAgICAgICAgICAgICAgICAgICAgICAgICAgICAgICAg ICAgICAgICAgICAgICAgICAgICAgICAgICAgICAgIC AgICAgICAgICAgICAgICAgICAgICAgICAgICAgICAgICANCiAgICAgICAgICAgICAgICAgICAgICAgIC AgICAgICAgICAgICAgICAgICAgICAgICAgICAgICAgICAgICAgICAgICAgICAgICAgICAgICAgICAgIC AgICAgICAgICAgICAgICANCjw/vQJtE6qeiCHoflX8 P5tkHm9BXn4XSI7fu6UhUFAdWApgaqLlDibHCbRdRTIqPuvCUac5XEgpIC3ByJCyP9StG5DmYZltLJ8W LWWpEPGuxIHdXFOhRYIhRrC9GUJtLZtsIX6GhLRdBYoqWFIxECKyPhEgWNTpUEPxJWRjVUIiKADDLBUq IRWfJvLnNEbjVT2Gs5SixHG8EFv+Bc2CVF9mr3FrBB ebQVGgET7mfv3AWThIVpUcB5BswsW6NOV8EOUkIx2CYRJgNSQvuRSeWmNjIWVPPyPfC2KjbV79YQLETn 4+IPuyrfZyWepNXeT1HSYoq0RxSJd5HC8JUCCbYMi8gCHgCVppG6kizowbXRP7iX8lruskPzupIgVaQU UcG5SsuGTjCXXPFORisMThFr8mVA0xIZW6IJFrPiA1 SHCAIA5IWXKgDOIliHEsKNThJEXPAT3NSBpbEGX2GVLasmTvzJVdULtcNK4LPQEyhzQnWpCdSQIZDCk+ Sq2YCA7wu0HcCHvlSgJuLD9utg5EVBuQUxEcR6Q1dKAwE3G5RMwqEo0JEZErTQYyUvIiGUQBJQngAL8P IV9zvcE0VR6FwKAoKUEmLJClnIFzLBe4T06jlAJiOK yyEI4CXXO+Sammy+Md5LRHHtQQYyNRSpYuCbFBDCBeTzH8KsS8QPp4JbL8UkAB04hDemprXlWOwqTH8CPO 7mJXNcLTKBMW1HiOGgjP3vvjEdWJBiZBNJFuKoD12crEJoHJCtYDW1BZMyVi6QSVPdT4DvcqZszFsjhn UkFUOeDJWSLO6BWGlqyxQtbHVrsVneFY63qBtjOM3D Kz9JLlAiAP5rgv0FoXUqMs1IQRZiPI3JRHTyFAZtAJNyTJN1VRCwBmKoNCfrKYGfYGYeGQR3QOAsZNKy OI2ICfUlIJXnHjCjKEkrRIDrLIEihe5PNKYiFGPzCbC4MwVxTACoOZMsWPgyCZIkKXBmSCB2AKKrKCKu BP2QMdUkZVRsDML1OxBqRGYlPBWtpg8LSTWeOWEcUH YwKgJeXCPlGBHvRDwaUTSdEJN6Mcq6IQRfEULmJF3IIgLqMYWzUXt6QnhrJSCsNFVqsu6FKWKrYYXgTb F7PGLyOKSuJDTbZOgbCNOgJFWtEJeoJWAeLCYuCG4IGcPhSXJmJCU1HCGwQUIsGRJndk9GXCTzBDTgSN bkPkCaGQKaXSRuAKdcFJLyNXU7VLI9AMVaHLOvKH8N VlElNENyDVuzHJLbSLOiKWHxlk6EOZIhGLCiHCIdXCQvOQFjPBCtSJssYSIeMPI4IWC4MJLxNTAeVR1Y EyVgWZPmEZl6OUPlRJVlZKNrir7DHUPxXARqUMR7LXIyNVCoCBVhFWpzKMDlZCW2BzBrYLScRYQjKZ7G VsTxNYRgGIn5BsvoVRHdCQRgkt4RENQaXHCwRGs5OA EiTFUvLWFdWWgaSGFfIKAeNVLnPNBwGOJvGK3FPhNnGOVaXiEjNXIwKRQqJOWmvi9DXIYxEQWrVVceXf QdSMKfKFMqDHhoVZRiTLTpXAtxLUNuJCHoFL5BRlVuRAWgEwWiSRCdICQlXGNstx8YKJLgDAZpJsHnBv EfSCMxJVDhVLz8tgRtzIHhTZo8MA8TN0NgudJeNgsF Rw3Zj476PNJ2TNWgMz1UB1kfKk3tJLQqEYWVNr8PHZo4XHf3ONP1DjP9GRcwNSBnI0KiEDc2R4E8NDjo RHi9YHh+EFcsLwhzNjX7LwDwULJ1BrBbBYK3FFEcNDCgLEY0UKA6If0wADGMIw3+DQpzdGFydHhyZWYN PkQvLxV2GSxeQDWKCs8J ID Date Data Source [id number] 06/15/2019 11:42:34 AM [facility] Name Value Range Interpretation Code Description Data Tania rce(s) Supporting Document(s) Glucose [Mass/volume] in Capillary blood by Glucometer 106 mg/dL 70- 140 [facility] ID Date Data Source [id number] 06/15/2019 11:10:43 AM [facility] Name Value Range Interpretation Code Description Data Tania rce(s) Supporting Document(s) Leukocytes [#/volume] in Blood by Automated count 7.7 10*3/uL 4-10 [facility] Erythrocytes [#/volume] in Blood by Automated count 2.38 10*6/uL 4.6- 6.1 L [facility] Hemoglobin [Mass/volume] in Blood 7.5 g/dL 13.5-18 L [facility] Hematocrit [Volume Fraction] of Blood by Automated count 22.5 % 4 1-53 L [facility] Erythrocyte mean corpuscular volume [Entitic volume] by Auto mated count 94.7 fL 80-96 [facility] Erythrocyte mean corpuscular hemoglobin [Entitic mass] by Automated count 31.5 pg 27-33 [facility] Erythrocyte mean corpuscular hemoglobin concentration [Mass/volume] by Automated count 33.3 g/dL [facility].0[facility] [Ratio] by Automated count 16.1 % 11.5-14.5 [facility] Platelets [#/volume] in Blood by Automated count 285 10*3/uL 150-400 [facility] ID Date Data Source [id number] 06/15/2019 11:51:42 AM [facility] Name Value Range Interpretation Code Description Data Tania rce(s) Supporting Document(s) Ferritin [Mass/volume] in Serum or Plasma 171 ng/ml 30-400 [facility] ID Date Data Source [id number] 06/15/2019 03:28:23 PM [facility] Name Value Range Interpretation Code Description Data Tania rce(s) Supporting Document(s) Iron [Mass/volume] in Serum or Plasma 19 ug/dl 59-158 L [facility] Transferrin [Mass/volume] in Serum or Plasma 116 mg/dL 200-360 [facility] Iron binding capacity [Mass/volume] in Serum or Plasma 161 ug/dl 228 -428 [facility] Iron saturation [Mass Fraction] in Serum or Plasma 12.0 % 20-55 [facility] ID Date Data Source [id number] 06/15/2019 11:35:13 AM [facility] Name Value Range Interpretation Code Description Data Tania rce(s) Supporting Document(s) Vancomycin [Mass/volume] in Serum or Plasma --trough 13.1 ug/mL 10.0- 20.0 [facility] ID Date Data Source [id number] 06/15/2019 08:42:26 AM [facility] XR SPINE LUMBAR 2-3 VIEWS [id number] RES ULTInterpreted by:Roderick Dickerson MDORDERING CLINICAL INFORMATION: post op: upright, may be sittingTECHNIQUE: Multiple views of the lumbar spine were obtainedCOMPARISON: NoneFINDINGS/IMPRESSION: AP view is limited due to an overlying metallic objectPatient is status post lumbar spine surgery. Spinous processes of L1 down to L4 are not visualized, likely post decompressive spinal laminectomy at these levels. Heterogeneous opacities are noted in the posterior paraspinal region likely represent bone cement. 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 There is corresponding mild increased density of the upper endplate of L3 and irregularities along with decreased disc height. There is compression deformity of L3 with about 30% loss of height anteriorly. The lower endplate of L2 is smooth. There is trace retrolisthesis of L1 on L2. Multilevel degenerative changes are noted. Multiple marginal osteophytes are noted. There is diffuse osteopenia of the lumbar bones.. Multiple surgical clips are noted in the lower abdomen anterior to the lumbar spine. Bowel gas and stool overlying the sacrum on the anterior view make evaluation of this region suboptimal.This document has been electronically signed by Roderick Dickerson MD on 06/15/2019 8:36 AM Name Value Range Interpretation Code Description Data Tania rce(s) Supporting Document(s) ID Date Data Source [id number] 06/15/2019 08:06:03 AM [facility] Name Value Range Interpretation Code Description Data Tania rce(s) Supporting Document(s) Glucose [Mass/volume] in Capillary blood by Glucometer 149 mg/dL 70- 140 [facility] ID Date Data Source [id number] 06/15/2019 05:30:47 AM [facility] Name Value Range Interpretation Code Description Data Tania rce(s) Supporting Document(s) Leukocytes [#/volume] in Blood by Automated count 7.7 10*3/uL 4-10 [facility] Erythrocytes [#/volume] in Blood by Automated count 2.32 10*6/uL 4.6- 6.1 L [facility] Hemoglobin [Mass/volume] in Blood 7.2 g/dL 13.5-18 L [facility] Hematocrit [Volume Fraction] of Blood by Automated count 21.8 % 4 1-53 L [facility] Erythrocyte mean corpuscular volume [Entitic volume] by Auto mated count 94.2 fL 80-96 [facility] Erythrocyte mean corpuscular hemoglobin [Entitic mass] by Automated count 30.9 pg 27-33 [facility] Erythrocyte mean corpuscular hemoglobin concentration [Mass/volume] by Automated count 32.8 g/dL [facility].0-[facility] width [Ratio] by Automated count 16.4 % 11.5-14.5 [facility] Platelets [#/volume] in Blood by Automated count 266 10*3/uL 150-400 [facility] Differential cell count method - Blood [facility] Neutrophils/100 leukocytes in Blood by Automated count 75 % [facility] Lymphocytes/100 leukocytes in Blood by Automated count 13 % [facility] Monocytes/100 leukocytes in Blood by Automated count 8 % [facility] Eosinophils/100 leukocytes in Blood by Automated count 4 % [facility] Basophils/100 leukocytes in Blood by Automated count 0 % [facility] Neutrophils [#/volume] in Blood by Automated count 5.81 10*3/uL 1.8-7 .0 [facility] Lymphocytes [#/volume] in Blood by Automated count 0.98 10*3/uL 1.2-4 .0 L [facility] Monocytes [#/volume] in Blood by Automated count 0.61 10*3/uL 0-0.8 [facility] Eosinophils [#/volume] in Blood by Automated count 0.30 10*3/uL 0-0.5 [facility] Basophils [#/volume] in Blood by Automated count 0.03 10*3/uL 0-0.2 [facility] Nucleated erythrocytes/100 leukocytes [Ratio] in Blood by Automated count 0 /100{WBCs} 0-0 [facility] ID Date Data Source [id number] 06/15/2019 05:50:31 AM [facility] Name Value Range Interpretation Code Description Data Tania rce(s) Supporting Document(s) Bicarbonate [Moles/volume] in Serum 23 mmol/L 22-29 [facility] Chloride [Moles/volume] in Serum or Plasma 105 mmol/L 98-107 [facility] Creatinine [Mass/volume] in Serum or Plasma 0.99 mg/dL 0.70-1.20 [facility] Glucose [Mass/volume] in Serum or Plasma 183 mg/dL 70-140 [facility] Potassium [Moles/volume] in Serum or Plasma 3.6 mmol/L 3.4-5.1 [facility] Sodium [Moles/volume] in Serum or Plasma 138 mmol/L 136-145 [facility] Urea nitrogen [Mass/volume] in Serum or Plasma 17 mg/dL 8-23 [facility] Anion gap 3 in Serum or Plasma 10 mmol/L 8-15 [facility] Osmolality of Serum or Plasma by calculation 292 mosm/kg 275-300 [facility] Creatinine/Urea nitrogen [Mass Ratio] in Serum or Plasma 17 [facility] Calcium [Mass/volume] in Serum or Plasma 8.0 mg/dL 8.8-10.2 L [facility] Glomerular filtration rate/1.73 sq M pre dicted among non-blacks [Volume Rate/Area] in Serum or Plasma by Creatinine-based formula (MDRD) >6 0 [facility] Glomerular filtration rate/1.73 sq M pre dicted among blacks [Volume Rate/Area] in Serum or Plasma by Creatinine-based formula (MDRD) >60 [facility] ID Date Data Source [id number] 06/15/2019 05:50:31 AM [facility] Value Range Interpretation Code Description Data Tania rce(s) Supporting Document(s) Magnesium [Mass/volume] in Serum or Plasma 1.9 mg/dL 1.6-2.4 [facility] ID Date Data Source [id number] 06/15/2019 05:50:31 AM [facility] Value Range Interpretation Code Description Data Tania rce(s) Supporting Document(s) Phosphate [Mass/volume] in Serum or Plasma 2.9 mg/dL 2.5-4.5 [facility] ID Date Data Source [id number] 06/14/2019 08:48:50 PM [facility] Value Range Interpretation Code Description Data Tania rce(s) Supporting Document(s) Glucose [Mass/volume] in Capillary blood by Glucometer 234 mg/dL 70- 140 [facility] ID Date Data Source [id number] 06/14/2019 04:39:20 PM [facility] Value Range Interpretation Code Description Data Tania rce(s) Supporting Document(s) Glucose [Mass/volume] in Capillary blood by Glucometer 81 mg/dL 70- 140 [facility] ID Date Data Source [id number] 06/14/2019 11:44:53 AM [facility] Value Range Interpretation Code Description Data Tania rce(s) Supporting Document(s) Glucose [Mass/volume] in Capillary blood by Glucometer 135 mg/dL 70- 140 [facility] ID Date Data Source [id number] 06/14/2019 09:47:45 AM [facility] Value Range Interpretation Code Description Data Tania rce(s) Supporting Document(s) Leukocytes [#/volume] in Blood by Automated count 9.5 10*3/uL 4-10 [facility] Erythrocytes [#/volume] in Blood by Automated count 2.53 10*6/uL 4.6- 6.1 L [facility] Hemoglobin [Mass/volume] in Blood 8.0 g/dL 13.5-18 L [facility] Hematocrit [Volume Fraction] of Blood by Automated count 23.9 % 4 1-53 L [facility] Erythrocyte mean corpuscular volume [Entitic volume] by Auto mated count 94.5 fL 80-96 [facility] Erythrocyte mean corpuscular hemoglobin [Entitic mass] by Automated count 31.5 pg 27-33 [facility] Erythrocyte mean corpuscular hemoglobin concentration [Mass/volume] by Automated count 33.4 g/dL 32.0-36.0 [facility] width [Ratio] by Automated count 16.5 % 11.5-14.5 [facility] Platelets [#/volume] in Blood by Automated count 280 10*3/uL 150-400 [facility] ID Date Data Source [id number] 06/14/2019 10:11:42 AM [facility] Name Value Range Interpretation Code Description Data Tania rce(s) Supporting Document(s) Bicarbonate [Moles/volume] in Serum 22 mmol/L 22-29 [facility] Chloride [Moles/volume] in Serum or Plasma 103 mmol/L 98-107 [facility] Creatinine [Mass/volume] in Serum or Plasma 1.02 mg/dL 0.70-1.20 [facility] Glucose [Mass/volume] in Serum or Plasma 157 mg/dL 70-140 [facility] Potassium [Moles/volume] in Serum or Plasma 3.8 mmol/L 3.4-5.1 [facility] Sodium [Moles/volume] in Serum or Plasma 134 mmol/L 136-145 [facility] Urea nitrogen [Mass/volume] in Serum or Plasma 16 mg/dL 8-23 [facility] Anion gap 3 in Serum or Plasma 10 mmol/L 8-15 [facility] Osmolality of Serum or Plasma by calculation 283 mosm/kg 275-300 [facility] Creatinine/Urea nitrogen [Mass Ratio] in Serum or Plasma 15 [facility] Calcium [Mass/volume] in Serum or Plasma 8.0 mg/dL 8.8-10.2 L [facility] Glomerular filtration rate/1.73 sq M pre dicted among non-blacks [Volume Rate/Area] in Serum or Plasma by Creatinine-based formula (MDRD) >6 0 [facility] Glomerular filtration rate/1.73 sq M pre dicted among blacks [Volume Rate/Area] in Serum or Plasma by Creatinine-based formula (MDRD) >60 [facility] ID Date Data Source [id number] 06/14/2019 10:11:42 AM [facility] Value Range Interpretation Code Description Data Tania rce(s) Supporting Document(s) Magnesium [Mass/volume] in Serum or Plasma 1.6 mg/dL 1.6-2.4 [facility] ID Date Data Source [id number] 06/14/2019 10:11:42 AM [facility] Name Value Range Interpretation Code Description Data Tania rce(s) Supporting Document(s) Phosphate [Mass/volume] in Serum or Plasma 2.3 mg/dL 2.5-4.5 L [facility] ID Date Data Source [id number] 06/14/2019 08:00:16 AM [facility] Value Range Interpretation Code Description Data Tania rce(s) Supporting Document(s) Glucose [Mass/volume] in Capillary blood by Glucometer 120 mg/dL 70- 140 [facility] ID Date Data Source [id number] 06/13/2019 09:06:54 PM [facility] Value Range Interpretation Code Description Data Tania rce(s) Supporting Document(s) Glucose [Mass/volume] in Capillary blood by Glucometer 170 mg/dL 70- 140 [facility] ID Date Data Source [id number] 06/13/2019 04:29:52 PM [facility] Value Range Interpretation Code Description Data Tania rce(s) Supporting Document(s) Glucose [Mass/volume] in Capillary blood by Glucometer 80 mg/dL 70- 140 [facility] ID Date Data Source [id number] 06/13/2019 01:30:35 PM [facility] Value Range Interpretation Code Description Data Tania rce(s) Supporting Document(s) ED Provider Note [facility] ZSCFQb3mPmLVNnZr15/TTTioBAUif7JjRAbiENv2OJeeAZZoY8OwOFR7fA2qQQB9HBvDVaQuXZboCbZ5 [facility] XlQscUZyHxNADaHadEYgXaBNdbNtahkIBvYD5MmNX3LKKnO22iPPQsOFMeU8NfBXT1QSO+Ls0FPIVkbV BgKG5JAmrW2E4fdfh2Av9K4g3JEpHmHh4BjBQn7YGcSBVAZ8HJvGz7jhcQRLfHIYQdiZ2r55csRm6RYo PkRmzy5lLdJnU7Yh92pJZxkXHjrh/FJJU4jhMxkw+/ RomrRlfqH5+p22ae+0UY4UuNPEd0OmaJEYxmw8pgwrzoyU5993sImmkKctuBWm349FveXrITr/6fL9Tg N9YeN4pDskVN9N2EepwluuYYFPiX07RpRwB95XbKBMQHOqD+rH3Wxpszg1DyaHn0nI+gePjwl8+BkWh7 QiZ7cA2seNd1IUcYXnd0pKUBAEpyD60e2TWJpuim1E oTfeC9Y9ju5ZZeL5aVfXRws7dZ+V9o/1Lx1TOCuJgp2lKutgfDG8uA7hFk2OrI1sO3uxd3h93aYv7m4t zs0fh7ijcWvX8KrDarl/ywpGD7fCtEPrO8mWPBQzLfWPrQ54X/f6PnlR1EoLj2PLI4ZV1SmC68naewys ogCPIJdJbbIpQU51/JogQaIlTKCnuvegGkjsU7r3F3 nvNZX4kEEXTYl1LMVGOCmNusajHFFWeiA42ZLWRkiOF+nlrCHMoSTyvaHOF7sRpXL/IyaSZtx8xOPBXm BnISgmTechahlaCqbWU9UBYbQYHKk+SrpFKtz2bHwiPQu5nXeBrCeJYe7mIngrQTip5uDuWTIOxuwkni +6aArfJuv0yfiAvviwKtfTHcGbbbmNFXriF4gK02qg rXNlH60LrL4APSqBa5mYqYexvDmWkOsO79fn/A2g0Hn8Ll++yzf1k1cEuiq2IqEWuO7oJcxZ6s6Bs6MY 1N52m/82uzQlSxLkeEsBUWn1uw9APeyMyjyvo+dpTCMl9WaWkF857dtbwwrEt19Rhvf+clPWKr3U+ADIN [file] ID Date Data Source [id number] 06/13/2019 11:55:19 AM [facility] Name Value Range Interpretation Code Description Data Tania rce(s) Supporting Document(s) Glucose [Mass/volume] in Capillary blood by Glucometer 133 mg/dL 70- 140 [facility] ID Date Data Source [id number] 06/13/2019 10:39:35 AM [facility] Name Value Range Interpretation Code Description Data Tania rce(s) Supporting Document(s) Leukocytes [#/volume] in Blood by Automated count 9.0 10*3/uL 4-10 [facility] Erythrocytes [#/volume] in Blood by Automated count 2.86 10*6/uL 4.6- 6.1 L [facility] Hemoglobin [Mass/volume] in Blood 8.9 g/dL 13.5-18 L [facility] Hematocrit [Volume Fraction] of Blood by Automated count 27.1 % 4 1-53 L [facility] Erythrocyte mean corpuscular volume [Entitic volume] by Auto mated count 94.7 fL 80-96 [facility] Erythrocyte mean corpuscular hemoglobin [Entitic mass] by Automated count 31.1 pg 27-33 [facility] Erythrocyte mean corpuscular hemoglobin concentration [Mass/volume] by Automated count 32.8 g/dL 32.0-36.[facility] width [Ratio] by Automated count 16.4 % 11.5-14.5 [facility] Platelets [#/volume] in Blood by Automated count 289 10*3/uL 150-400 [facility] Differential cell count method - Blood [facility] Neutrophils/100 leukocytes in Blood by Automated count 85 % [facility] Lymphocytes/100 leukocytes in Blood by Automated count 9 % [facility] Monocytes/100 leukocytes in Blood by Automated count 5 % [facility] Eosinophils/100 leukocytes in Blood by Automated count 1 % [facility] Basophils/100 leukocytes in Blood by Automated count 0 % [facility] Neutrophils [#/volume] in Blood by Automated count 7.63 10*3/uL 1.8-7 .0 [facility] Lymphocytes [#/volume] in Blood by Automated count 0.80 10*3/uL 1.2-4 .0 L [facility] Monocytes [#/volume] in Blood by Automated count 0.46 10*3/uL 0-0.8 [facility] Eosinophils [#/volume] in Blood by Automated count 0.11 10*3/uL 0-0.5 [facility] Basophils [#/volume] in Blood by Automated count 0.04 10*3/uL 0-0.2 [facility] Nucleated erythrocytes/100 leukocytes [Ratio] in Blood by Automated count 0 /100{WBCs} 0-0 [facility] ID Date Data Source [id number] 06/13/2019 11:11:53 AM [facility] Name Value Range Interpretation Code Description Data Tania rce(s) Supporting Document(s) Bicarbonate [Moles/volume] in Serum 23 mmol/L 22-29 [facility] Chloride [Moles/volume] in Serum or Plasma 103 mmol/L 98-107 [facility] Creatinine [Mass/volume] in Serum or Plasma 1.03 mg/dL 0.70-1.20 [facility] Glucose [Mass/volume] in Serum or Plasma 214 mg/dL 70-140 [facility] Potassium [Moles/volume] in Serum or Plasma 3.9 mmol/L 3.4-5.1 [facility] Sodium [Moles/volume] in Serum or Plasma 138 mmol/L 136-145 [facility] Urea nitrogen [Mass/volume] in Serum or Plasma 16 mg/dL 8-23 [facility] Anion gap 3 in Serum or Plasma 12 mmol/L 8-15 [facility] Osmolality of Serum or Plasma by calculation 294 mosm/kg 275-300 [facility] Creatinine/Urea nitrogen [Mass Ratio] in Serum or Plasma 16 [facility] Calcium [Mass/volume] in Serum or Plasma 8.5 mg/dL 8.8-10.2 [facility] Glomerular filtration rate/1.73 sq M pre dicted among non-blacks [Volume Rate/Area] in Serum or Plasma by Creatinine-based formula (MDRD) >6 0 [facility] Glomerular filtration rate/1.73 sq M pre dicted among blacks [Volume Rate/Area] in Serum or Plasma by Creatinine-based formula (MDRD) >60 [facility] ID Date Data Source [id number] 06/13/2019 11:11:53 AM [facility] Name Value Range Interpretation Code Description Data Tania rce(s) Supporting Document(s) Magnesium [Mass/volume] in Serum or Plasma 1.7 mg/dL 1.6-2.4 [facility] ID Date Data Source [id number] 06/13/2019 11:11:53 AM [facility] Value Range Interpretation Code Description Data Tania rce(s) Supporting Document(s) Phosphate [Mass/volume] in Serum or Plasma 1.9 mg/dL 2.5-4.5 L [facility] ID Date Data Source [id number] 06/13/2019 07:32:48 AM [facility] Value Range Interpretation Code Description Data Tania rce(s) Supporting Document(s) [facility] QXZQFe5hImUMQiCe15/CYCtaRURgl1IpAFifMJt5BAhnWDSpG4JcBKZ4hH0bTDE0JAiCSeSrQPwfKjS9 lbm JeHjhRTcGzBFXaSawVAyDvZXbhMatteNHtUL9WaSK0ZZRuZ15bGDFcCFKqE1QwLTP2YXT+Ip3SNGOwqG OdJY6RXjhI6Ohxota1RA/vTP+HnXamE8/YcJLuQ+c3/DD3joEI51uPtv8QPREuUkeEkX6fS08NrQxgWz lNloKUUckM7qy8T4lMOfN/6ivszlu8AqL/lz+DUEJv DD//WWezLr7xvI1BPCzYtTQV4JpHGwV+YJXGpwehWfl74Y9Y8MS189AV0JfU6v/2bTily1KExPGVBviZ 855xiD1mS3TqyXAW0KDQvjDghxT4vs1Yfj6koadct8tApSnPcdwkx8j0BHa8QaAzrsi2Mh75hTdZGTD9 LNnIiKxAyQjcLVF8h0JxPza0mahV33nxooB9YZtBFr HaqWEoDoyrwwIHRWC8sLm334xOxmyqGMznD1SKVDvG5PMKkmXiLQwfFDe/2Y7XJQW9h2CTBNRWgQdRGt VD/izlBUrm/vNxpQT5vWSa6CRMVz5GhEo2e6ej9WcqUMy3dgDajG3W1xN+Bi9TTrj+fZR5iy58VwWMep 0s031QWdylykjbsoD/x89fWfcHWS6q6cF4s1uB58d0 3ueDpMB4oFXdi75AQGlc0FLYWwr0qaG+IP33znT9QE3kU/1+Jb7c4leNlLaRgaAdb8S3gGCZbSvGAmvn Jayce/qUA83GkAZp6ONZ/I8VZUtsb4kzKkgrXCwmbeGpBshWrJKViMkJyW9gjy7Xw+RxWanEtH2F0SlJ0n [file] PfRy9qMNXHLk6+XIjtqQMspUwnYTDVPxicSvSUMqVqXJ4VBXb= ID Date Data Source [id number] 06/13/2019 08:00:08 AM [facility] Name Value Range Interpretation Code Description Data Tania rce(s) Supporting Document(s) Glucose [Mass/volume] in Capillary blood by Glucometer 145 mg/dL 70- 140 [facility] ID Date Data Source [id number] 06/12/2019 09:57:10 PM [facility] Value Range Interpretation Code Description Data Tania rce(s) Supporting Document(s) Glucose [Mass/volume] in Capillary blood by Glucometer 177 mg/dL 70- 140 [facility] ID Date Data Source [id number] 06/12/2019 08:22:25 PM EST [facility] Name Value Range Interpretation Code Description Data Tania rce(s) Supporting Document(s) Consultation [facility] JAOCJx6fNnCRUiUn52/TQGjxTZSvd7GvZUtqHBz9ELyhMPQmP5UrCFA7kI8tZOH5HXoSTzOcHJgsTyW3 lbm [file] [id number]+PRE SALES NETWORK ENGINEER/4cOVTIu70xeLc2Ogzugwa3LSo7AEcIoiqpCis6FvhrpfKq9+KKrhZPvXpPA/gMYt0BES [file] EvTSQwKPBqAJNWDUzoJG2NAB7mqkC7GZ9JjAArSNIkNJZfxNNzYEm8Y77kvHZxLHkaMU5RYPG+Sammy+Pg 8VTFDbBUHlQBOeAeHkNBTNYyUrH0QfM3XYq5MsU2KtKF84vGybygVeUBpjMT0URF2zIEMrZDKVYF1DmQ IfiP8nmcX9CQYdZBYNZyLtX53vxPPtUJYzGKW4FADx Pw2SYKCjR1VxhwVtuQntgxKdKDYuZRAPRA9FHEvbsfNioAGvwMgqGF14sWsgUR2UYr7LIvXeUW2qjb4S uKKkBe0MAMN9MM6CYFZkPBZcGECvCQL5CEFxJhOjYDbcTGVgFMFoDJM8EABqQEPxOA4DNrXzUJMeOOi3 DOLkMBFpCADuvb9XNZEoVJE6DPC0BKPjKWCePLHqCQ oeLLXaOKMmUZL5LTRoMSFeXM7NMqBaIHCeKQA6ALjcDZVyTKDawq2UPPJzKDXhKGE5LoXrWIDuWVVnFX nuRGGbXTK3VRGnGGYjSOXvSE7FUsAnLPMqMVqaDXbtSAKdKFAepq2TXBWjXXEvHSZvAoTsSZEiTERmOY qrTDArETEnKsE3CWBjCNKpTL7SZqVoIAXfGZW8VoUw KPCpMRRfbm0MMPAdIVNfLdZeMjTzOODoVPSnGLvrKOIzSFO9VTFuSENxYLRqLH8RFeIzAQIqBKQ6Ghxf FJZtICSsdd5IQDZvOLIjWPpeYSRzMLXsPUGjZJkfAUMmCHB9XKFcPVSxGXLkDH0EMuSzGICsXnDwJBVp FHRxGMCmho2RMJGvJGE4WKJ6GqLcDVOlWROcGOqbBT OaCMIvEQa6KMPoUGKwML0MXqCbZDYnNaOdYAViYCGsYEYgow4VWFHcFZC7KQesDbPdREOwIFOcXDrjGI AxURXaDQe7VHJnCTZqGQ7OOzCeWOVaLgAlTGGfZZIoJNWksl4YLVClLHA5QMNgXxYeXPIyFWIyBNawGI ZoBYCxYhrmDEVlCAWmBN1UBhOcIOGjFvH3LMunKNAp DGNmfz6PGIKsKJV5BBwhQxIbCYFiNITnIHsdXKIiNIXvJIy4CKIjQCUpQI1LKlCcDUIrCjQdWMGwFXZv ABVsbu8OJYFwYFH7HdOlWdUxOLUpXRBfYMyiGOTfDPDlNsuzUYYoRIQyYW4MRtAmUSYrAvG8ZWXqVUTn BCOcon8ELOEhGIIoRhh4BwYiYDWgJXLzPXykQVVtGP R5PWkuLCCmQDWsTG6JLxLkEHXsVmk3XCWsJOLmXEMiqb1LNBJhLJUjATX0YQJpLZDnHDFcEErgYDFrDH F2XbUrLGNbBHQrLF0BLjMzKZBfLjBmZXUjPPWaAKEcxp0GCRXcRGKvBSV5OLFgGFJcANAyOBvhPIFyBU AkDknoSXLoZSEhQJ2IQlReYULeZnC6WsUwOXUeAECc or7CDGUzQEAcMMwlLYKnYMDhITFaAIbhEPSnVOPlGJXyLEQgGRYnXK5QTtPrYGDlTBKjEBkhMBQwNCBu zw8HRJGbQEB7QojaEJOjURMbZYViOFwyIRGqIFPxHRA6BALyLNBoSJ0EFdIbCQQyJRIlFxXcYKVqRICs sk4GDWMcJXJ1XYJsREVdZGFlUNPxRAthJLXbKFN0Ux QsQJTjBYFpDL2SPxHeDGMcSLI5PZHoLYHfVAHgkp1WPFTlRSN1TMObRFFhBKFpBPGtKIayRIKdMWL1IQ PzFFXfZUCiYU3BTzMdJZIeSLhiHHxzPRHrDORyae0KCXYeZCE2YFc5CZSyDNNvNEOjHGyvIXLnBOQcVx XsCDVnNBIiOJ4TClHwRKJgIfP7NCZeDTJpNAGbph1F KHJdEQL1WrWeNlLsXAAbZURnBYw5moWgeOWnFAa6SW8HR6GqbpWdKRqBZx7Ui604FVT1REWuGo7DE4wd En6hFUYcAOURFj1VQVj0WCWnXnwlBDy5TCkyQAZoPozgAAvnBzw3QXW9HSHoPLP+CRplCdN8YQE5XUj5 VYF9VjE9NXI4TVGpOOP1ZWu2FxJ7Lg8hLNPVJc2+QUwguUZsyZcjLBKOGeZfTgzzKLbnQBWLPx1U ID Date Data Source [id number] 06/12/2019 04:32:47 PM [facility] Name Value Range Interpretation Code Description Data Tania rce(s) Supporting Document(s) Glucose [Mass/volume] in Capillary blood by Glucometer 126 mg/dL 70- 140 [facility] ID Date Data Source [id number] 06/12/2019 11:29:44 AM [facility] Name Value Range Interpretation Code Description Data Tania rce(s) Supporting Document(s) Glucose [Mass/volume] in Capillary blood by Glucometer 150 mg/dL 70- 140 [facility] ID Date Data Source [id number] 06/13/2019 03:03:49 PM [facility] Service Cmnt XXX-Imp : Microorganism XXX Cult : NO Methicillin resistant Staphylococcus aureus isolated Name Value Range Interpretation Code Description Data Tania rce(s) Supporting Document(s) ID Date Data Source [id number] 06/12/2019 07:49:30 AM [facility] Name Value Range Interpretation Code Description Data Tania rce(s) Supporting Document(s) Glucose [Mass/volume] in Capillary blood by Glucometer 239 mg/dL 70- 140 [facility] ID Date Data Source [id number] 06/12/2019 05:10:23 AM [facility] Name Value Range Interpretation Code Description Data Tania rce(s) Supporting Document(s) Leukocytes [#/volume] in Blood by Automated count 10.3 10*3/uL 4-10 [facility] Erythrocytes [#/volume] in Blood by Automated count 2.69 10*6/uL 4.6- 6.1 L [facility] Hemoglobin [Mass/volume] in Blood 8.4 g/dL 13.5-18 L [facility] Hematocrit [Volume Fraction] of Blood by Automated count 25.2 % 4 1-53 L [facility] Erythrocyte mean corpuscular volume [Entitic volume] by Auto mated count 93.5 fL 80-96 [facility] Erythrocyte mean corpuscular hemoglobin [Entitic mass] by Automated count 31.2 pg 27-33 [facility] Erythrocyte mean corpuscular hemoglobin concentration [Mass/volume] by Autom[facility] 33.3 g/dL [facility].0[facility] width [Ratio] by Automated count 16.3 % 11.5-14.5 H [facility] Platelets [#/volume] in Blood by Automated count 239 10*3/uL 150-400 [facility] Differential cell count method - Blood [facility] Neutrophils/100 leukocytes in Blood by Automated count 82 % [facility] Lymphocytes/100 leukocytes in Blood by Automated count 11 % [facility] Monocytes/100 leukocytes in Blood by Automated count 6 % [facility] Eosinophils/100 leukocytes in Blood by Automated count 1 % [facility] Basophils/100 leukocytes in Blood by Automated count 0 % [facility] Neutrophils [#/volume] in Blood by Automated count 8.41 10*3/uL 1.8-7 .0 H [facility] Lymphocytes [#/volume] in Blood by Automated count 1.14 10*3/uL 1.2-4 .0 L [facility] Monocytes [#/volume] in Blood by Automated count 0.57 10*3/uL 0-0.8 [facility] Eosinophils [#/volume] in Blood by Automated count 0.13 10*3/uL 0-0.5 [facility] Basophils [#/volume] in Blood by Automated count 0.02 10*3/uL 0-0.2 [facility] Nucleated erythrocytes/100 leukocytes [Ratio] in Blood by Automated count 0 /100{WBCs} 0-0 [facility] ID Date Data Source [id number] 06/12/2019 05:39:55 AM [facility] Name Value Range Interpretation Code Description Data Tania rce(s) Supporting Document(s) Albumin [Mass/volume] in Serum or Plasma by Bromocresol green (BCG) dye binding method 3.0 g/dL 3.5-5.2 [facility] Bilirubin.total [Mass/volume] in Serum or Plasma 0.4 mg/dL <1.2 [facility] Calcium [Mass/volume] in Serum or Plasma 7.9 mg/dL 8.8-10.2 L [facility] Chloride [Moles/volume] in Serum or Plasma 104 mmol/L 98-107 [facility] Creatinine [Mass/volume] in Serum or Plasma 1.21 mg/dL 0.70-1.20 H [facility] Glucose [Mass/volume] in Serum or Plasma 263 mg/dL 70-140 H [facility] Alkaline phosphatase [Enzymatic activity/volume] in Serum or Plasma 110 U/L 40-129 [facility] Potassium [Moles/volume] in Serum or Plasma 4.1 mmol/L 3.4-5.1 [facility] Protein [Mass/volume] in Serum or Plasma 5.8 g/dL 6.4-8.3 L [facility] Sodium [Moles/volume] in Serum or Plasma 139 mmol/L 136-145 [facility] Aspartate aminotransferase [Enzymatic activity/volume] in Serum or Plasma 31 U/L <40 [facility] Urea nitrogen [Mass/volume] in Serum or Plasma 24 mg/dL 8-23 H [facility] Osmolality of Serum or Plasma by calculation 301 mosm/kg 275-300 H [facility] Creatinine/Urea nitrogen [Mass Ratio] in Serum or Plasma 20 [facility] Bicarbonate [Moles/volume] in Serum 20 mmol/L 22-29 L [facility] Alanine aminotransferase [Enzymatic activity/volume] in Seru m or Plasma 13 U/L <41 [facility] Anion gap 3 in Serum or Plasma 15 mmol/L 8-15 [facility] Albumin/Globulin [Mass Ratio] in Serum or Plasma 1.1 [facility] Glomerular filtration rate/1.73 sq M pre dicted among non-blacks [Volume Rate/Area] in Serum or Plasma by Creatinine-based formula (MDRD) >6 0 [facility] Glomerular filtration rate/1.73 sq M pre dicted among blacks [Volume Rate/Area] in Serum or Plasma by Creatinine-based formula (MDRD) >60 [facility] ID Date Data Source [id number] 06/12/2019 05:39:55 AM [facility] Name Value Range Interpretation Code Description Data Tania rce(s) Supporting Document(s) Magnesium [Mass/volume] in Serum or Plasma 1.1 mg/dL 1.6-2.4 L [facility] ID Date Data Source [id number] 06/12/2019 05:39:55 AM [facility] Name Value Range Interpretation Code Description Data Tania rce(s) Supporting Document(s) Phosphate [Mass/volume] in Serum or Plasma 2.7 mg/dL 2.5-4.5 [facility] ID Date Data Source [id number] 06/11/2019 09:36:12 PM [facility] Name Value Range Interpretation Code Description Data Tania rce(s) Supporting Document(s) Glucose [Mass/volume] in Capillary blood by Glucometer 130 mg/dL 70- 140 [facility] ID Date Data Source [id number] 06/11/2019 05:10:45 PM [facility] Name Value Range Interpretation Code Description Data Tania rce(s) Supporting Document(s) [facility] NDJVZc1wGfRNUpZrv4NtAnOwXGRiYA1yyri1Q9W0uLCtN8NdyNCwb6xcK7QvX8IlBVTzIHPATW3XmCDo jb2 [file] 1Q/lzd3zFGkGASz5du80ljrs6XuU1G1IwmIO7VLsjV8SUR+U/4UXpa9H/+k+aY1Dwi3//x//7Z//[employer] 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 [employer]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 [employer]ER/n //efP+Dvv3/+5/vw//7P//hf//k//9f/9Z9m5Z//+n/953/6r//Me80VpgS/mMU+/9tu+5//9X/+j3v5 p46/f/7bP+fR59+///7zv/3bMEHrJV8aOjP0ZDXleg fo+WOSJK9UIsEKZTYeN4HwGp5bIGpRlceoawuqWo6x9JGhILxfr82J1SGsPDcbf42X8BXbIDjpm51I6R YnOKxfp24F9JoFp0Q3FkDyNx9RnFkMh3WhpbFp9LlekJf4axbxFe3a2bxQi6c82vDzW7805UhNoq74aa arQ6+o3ilEl6q9PtUjHr0WeEvSn6BjamZo2LEVY1sn jfWd0OVIM5iowuHg9IUiCN974+MUd4TbUv963gTf12o8Jla9jp8Ula8o02StL+p5wFd20KE8iWtuZo4X 7kuKn3B9lzUePt8v3OtWrvr8AnXuOl+R8BlBk9a2DnBuHv9rXp6qPdOChWig3CJwNbd6sdtNuj8a99Iz 04a1Kug3li1Nlw4v22Vb05k19mOB1fqJc6o3DxGiNr [file] 1KJIR1PmbNW+8aRORHe+CANSECO+a69OoTXAQe8rjGB9LWgCYad/eZ/VXHq4bPJu0o/F5jM+fcShBrUeBY1Yx slNe+WpHOm0eQ4/jI7fRe+B2wvUv0F++zr0jRAhUNp 6pE1/VRqN2JyyNuYDr6Idhexa1cnrvvDhyt5wypmf3OwtPdR9X1IEXkt6q1PxSCU6kQ4TbbQfmy0+2+G lFmQ3A1G70K+V2yh/bFtBW78g6jGouqvqU/lYoPkaFwMdAWN84bF8Grbc73NpMF3lLze9GmKTpcUJ3wN vfnS9/y70cI4eWInQT1KP0XJcMaLLRUhMy9NXza+c7 0BsVngm9Yc5zAdu519qn1lst4FyceH8l1H3qkwj5S+UPbuYTyzhMDhPuC/XzYFdzA4jMqd4kWy5hha9g qy7AzQp5wyU2TXSbEYY9btvBKUmZP9CiNWHTul36hVQPoMarhb01JG2Ik+Ko7RgQB4ekx8XCsiuBmWYa B82qV6fKl3cJiXfcqUF2EN5D5GDw0cHauUU8cOfHi/ Ольга/Ольга/Ольга/Ольга/Ольга/nEuyl/cDflD+4solP2PncNN1akHgYDxYneiAzJppNYTDKFdV1xWCCprer8E/ Hy/SYN9rGvk1+8nE+8h+YPg6G7yT5trkOzECU5RUtJyXPKsEdzUH/nQjCZ61ErY4OSUkzcRTKEz9glPp NpTmD6YX5spFrUyUObs8vs1mmWAjLPLSI+uIsJzcm6 l+rm5nzghGgclt5a6am7oqj48X4vn3BN2dFxU6bvOij8ljWf2T9I+eJKX1bZyeqfFtJ1r/J81Dxae/g8 hwDkLimSV2cKq7yJaKtrvYcw7b0eP53IdbWvYvDO3BP+T524y/k2hXgGt7OH13egQqVi2kstnTR1r41l lt9/+bdYi/5pOoYM6Ky1jL5kcVLpEOzrw5SkD5f/kb OLZfg/7+BjT4LV6Svk91TaXX/mFnUsiW/LxLR7gda3S8/CCgkCT0R67QbAXSOWg+93x1U/NaGQDUP8ch RShcv2QzgV6uvD37IK+1+VmgY7W3iw1ye1wzmB+uU84l80PMt/w8QGTnVzK7WdCIvcc1o1jMC2RLCMVj Hl5LLeWGdAh5eKpQilnx+0zS945xyEJbsZ94zPai/f meKSK2oX62sF+Jsssc6+BzINWotpQUXw6Vs5FYjmt3QBzwv+MagEIklz05FDEmIxCgyc6m6hMRS2CuyD 32UtrC2m36Lj/j5PpAMXyrQh3kEdai+jiLzCJbKWOW7y1zuL0KDsf+oOjbC0wi+ROmwTK06ZY8vDt6Gy xRc0uTFzJ1gU7KxZyRRfPdrJ1Kor6+/OPkkjOecTnf CVusiSfGI88cE5zoastI8mFkAPWVkBeiLFZGMDN/qi+UieOhHtLXUi+eufemia/TTyWvFfbF1n1MeZU1J5eM [file] 3/7mu+8//f6Lj19/8YsvP//0q4/zpt5iQ139+92X3//jz/7bf/v877/00xQm49vstud2q70/3cRcF14/ ++XOT8t19J2t47Ud9ieqkq2+TaCt6HX+bf740i0gy/ rt99+/Jg6xS49/v04oFc9fRbqap42Jj/tGp4smiyM5//Xx6de/+Pjs0++++Oo+4afffv/lLz/9/Pv/oN n9u918++2Xf/+r7z8+++3Ct6y271g7k138+a+ipf/gP5I3/ulnX3/z7a9fF/PF53//2787ux62E47/8/ Gbb7/44ctvfvvd/jkiMi930xZis1fu1n/2390q0Q/6 /C9//pc//PVPv//nj//xfz4+/18//vl//vHHP/yXj8/++ocf//zxj3/38U//6Sb5/ae//bxZup9Vhu38 h13w5dvgp0Y5+M2v/13vpmOQ1mLcm/7083/yktqNhoK1jC/4VPn3KoQysV+/+v8A+rvsPaszBC10cJl4 OqOs134CYWf8jTphNa+/+gWqDoeri73D2+E0uNw6dE 0/wN//y+//+lfvr08+Yu255SlIV85J1d+/3Wh7+3j10Ds5T35pAk9Tq5cXro5Dt34266qmUEoNTF7kLp bD7//8b3/38dcf/+33b62/voIfURPn/tGf+Bf2p8D286+2faDffPvxhz//2+//+v/8+Mf/oPHTke+N3/ 7cXVc2rrKH/Idvv/v45//9uvQ//AUEE12eF3n4zU7q 4sH+4fuf/8P3v+Tg2zjKfsB+8mW4m534H8l62l/5xtB5bi/zFKZsaS8rjv/0m599+1AyT759r2//r//+ qFlk40lO/AbgU68511H9sLenvuysp/7T3/7k1+dB/GgOK8074m4Bmy0w//7dj//6Gms/+f/z4Sj47x7/ /f/zkGb74//49/99uvDbv/ncJ598am9v/ODc7Vd/+d 8lEH8OZtlRxec61//uf/31V533Sy0ol/zqm2++/XhN67/85U9+7/wd8ft//xrPdHivD91cs6/mTgI8gK kN/ubH//n7D/l4o2519SBhYUYsLeRDsi4dQ/h9fW523IioL8in0RsTc/1aukguoSkNS900JF616NUPf3 7++Te//ry765yjwandouB0//5/fepIuwplbmRzdHJl NY2RQS1so5TeYlF2DVJye1GsNDbcIPp3fRZcJEaczaXdt7FcqoqhM3Qfl7IdIaHrAYJjLjSlPyj9IEOc McC9cPRgDzXmVIYcP5IyJNEqJoT8TiMnOBWGCK9KLMOkvxIvRyPoZPN+YxTmOM8lvgnhETJya9CtMEzd RTrlXMHnN2E7aZwgTSUtW2JnoW97SJXzC4FgikX9DE K8JQEqNcThNLSriFJvLOApOSS+SlDvYP8kodwlBITmu2QbHOqcNUY0lN9zBYfNIECPKEaMQTbvUcS0h2 4rzkPYHKQgAFQaOG5TdnSgvBuuobLemBArNCK0OsRiPHIqWHTnUvWsDXTBRKGvJHFnWUWlUTDgX7CxyI onVBwCZOSLXVyOWDfwUxDyd8K3FSRhzyYeGA4YRZBk ROkFEeHNZWO7IdTdGhzlSR1HvGIpEKB3FApNHXSKFEqGFEagHbSob9J1UQKiZ3LbIWGccaNdOHEDOVsn VrqkXE4xeXytxqwkS1XudEKgEEYGBVZmODSqPBYqVXTaG3Gsb0Z3L6AjOEnBJXMKVTtJARrwUbE9i00i ayBTZXJpZXMpID4+FY1hl1IfSk5WHQWgEE3vscr8NS 6ClYEnRV8SIBedijInM6gkjhBzGzHcSZWGJS3gF0QhzI05YHQ+WgVxBA3iagn2eqGsSbWpOHGuXIKmUF UsFFgvJPItNCNfETJiTOR5LOP7UYZbZuCbMYRyWec7GlEdKVGcAHFkqdZXUECiPTZ9WZT3LpThNSKoYX NyJUqkCRZhOZZ5GPX4KSIsMEZeVE4nNhBaFZWzTEMe HGAyHlH5JuMkGsFGPMVmGQKyVWWnNhQfHSGuFJHfCDmfDBXsJRVeGQq1CJYiFRLuEC0iYpDoLRArLUEs HHAsLXFtYGQoyyWIYCRlQLMjVDH4HXSxMEEoTGSqXEqbPYBsSVAkIMR9GKDbUQZmBH2gErQmPHBzUYW9 AyBzUFFkLPZycbGSJCTcENPdKTL8CONvPSVlMNSrAT cqKQRsOUAeSmQ4ZUVlHVCaFQ0lVwFnIJBmHNV9KUZoYGCvMUXrfcQVLWIvZHGdRRo8XfEwYFMbZXDaPB fiWYDtMDYgBSujDGSdXXGcJQ9xZeFdEIAfUTMoIVDpXNKeDANqldQPYMRnXSHfHYU3KxRgFMXrVAItLJ joRTIvIWDbISG1WEJpGQVwVO1aMjWoLRVvQhleMBwx RKZtPKIlmwAHJNYoFOJwGLAnFLKjKTHsJXHzXGxvOYKpVMNeDoI6JNSnUVOwIF2jLiIiQULeLKG5EUOp TCMzTRXnjjIKYTMtHZCyBKRgCCH2IMLfOUFjQXd1iiZckLQaOuo1Hj5CsIopLJT0Tp4PywSnHYAlCOTW Uj2Ek802UFTyGOVBGkx+JrfvwOXseJxvFGWJIjk9RJlEHBXJR3G= ID Date Data Source [id number] 06/11/2019 04:36:37 PM [facility] Name Value Range Interpretation Code Description Data Tania rce(s) Supporting Document(s) Glucose [Mass/volume] in Capillary blood by Glucometer 256 mg/dL 70- 140 H [facility] ID Date Data Source [id number] 06/11/2019 11:11:52 AM [facility] Name Value Range Interpretation Code Description Data Tania rce(s) Supporting Document(s) Glucose [Mass/volume] in Capillary blood by Glucometer 185 mg/dL 70- 140 H [facility] ID Date Data Source [id number] 06/11/2019 08:30:11 AM [facility] Value Range Interpretation Code Description Data Tania rce(s) Supporting Document(s) Glucose [Mass/volume] in Capillary blood by Glucometer 190 mg/dL 70- 140 H [facility] ID Date Data Source [id number] 06/11/2019 06:53:12 AM [facility] XR SPINE L-S 2-3 VIEWS PORT-OR [id number] L RESULTThis statement is intended for documentation purposes only.This exam was performed in the Operating Room by the Surgeon and a Radiologist was not present. Please refer to the Operative note in EPIC. Name Value Range Interpretation Code Description Data Tania rce(s) Supporting Document(s) Procedure Social History Code Duration Value Status Description Data Source(s ) Smoking 08/05/2020 12:00:00 AM EST Never Smoker completed Never S moker eCW1 ([facility]) Smoking 08/05/2020 12:00:00 AM EST Never Smoker completed Never S moker eCW1 ([facility]) Smoking 07/16/2020 12:00:00 AM EST Never Smoker completed Never S moker eCW1 ([facility]) Smoking 06/27/2020 12:00:00 AM EST Never Smoker completed Never S moker eCW1 ([facility]) Smoking 06/20/2020 12:00:00 AM EST Never Smoker completed Never S moker eCW1 ([facility]) Smoking 05/20/2020 12:00:00 AM EST Never Smoker completed Never S moker eCW1 ([facility]) Smoking 05/20/2020 12:00:00 AM EST Never Smoker completed Never S moker eCW1 ([facility]) Smoking 05/20/2020 12:00:00 AM EST Never Smoker completed Never S moker eCW1 ([facility]) Smoking 05/20/2020 12:00:00 AM EST Never Smoker completed Never S moker eCW1 ([facility]) Smoking 04/05/2020 12:00:00 AM EDT Never Smoker completed Never S moker eCW1 ([facility]) Smoking 03/26/2020 12:00:00 AM EDT Never Smoker completed Never S moker eCW1 ([facility]) Smoking 03/26/2020 12:00:00 AM EDT Never Smoker completed Never S moker eCW1 ([facility]) Alcohol intake 03/24/2020 12:00:00 AM EDT Ex-drinker (finding) comp leted Ex- drinker (finding) [facility] Tobacco use and exposure 03/24/2020 12:00:00 AM EDT Never used co mpleted Never used [facility] Smoking 03/24/2020 12:00:00 AM EDT Never smoker completed Never s [facility] [place] Smoking 01/15/2020 12:00:00 AM EDT Patient is a former smoker completed Patient is a former smoker [facility] ([facility], ) Smoking 01/09/2020 12:00:00 AM EDT Never Smoker completed Never S moker eCW1 ([facility]) Smoking 01/09/2020 12:00:00 AM EDT Never Smoker completed Never S moker eCW1 ([facility]) Smoking 12/08/2019 12:00:00 AM EDT Never Smoker completed Never S moker eCW1 ([facility]) Smoking 12/08/2019 12:00:00 AM EDT Never Smoker completed Never S moker eCW1 ([facility]) Smoking 12/08/2019 12:00:00 AM EDT Never Smoker completed Never S moker eCW1 ([facility]) Smoking 12/08/2019 12:00:00 AM EDT Never Smoker completed Never S moker eCW1 ([facility]) Smoking 12/08/2019 12:00:00 AM EDT Never Smoker completed Never S moker eCW1 ([facility]) Smoking 11/16/2019 12:00:00 AM EDT Never Smoker completed Never S moker eCW1 ([facility]) Alcohol intake 09/24/2019 12:00:00 AM EDT Ex-drinker (finding) comp leted Ex- drinker (finding) [facility] Smoking 09/24/2019 12:00:00 AM EDT Never smoker completed Never s [facility] [place] Alcohol intake 07/30/2019 12:00:00 AM EST Ex-drinker (finding) comp leted Ex- drinker (finding) [facility] Smoking 07/30/2019 12:00:00 AM EST Never smoker completed Never s [facility] [place] Alcohol intake 07/24/2019 12:00:00 AM EST Ex-drinker (finding) comp leted Ex- drinker (finding) [facility] Smoking 07/24/2019 12:00:00 AM EST Never smoker completed Never [facility] Alcohol intake 07/10/2019 12:00:00 AM EST Ex-drinker (finding) comp leted Ex- drinker (finding) [facility] Smoking 07/10/2019 12:00:00 AM EST Never smoker completed Never [facility] Alcohol intake 06/26/2019 12:00:00 AM EST Ex-drinker (finding) comp leted Ex- drinker (finding) [facility] Smoking 06/26/2019 12:00:00 AM EST Never smoker completed Never [facility] Alcohol intake 06/12/2019 12:00:00 AM EST Ex-drinker (finding) comp leted Ex- drinker (finding) [facility] Smoking 06/12/2019 12:00:00 AM EST Never smoker completed Never [facility] Vital Signs ID Date Data Source [id number] Name Value Range Interpretation Code Description Data Source(s) Diastolic blood pressure 90 mm[Hg] 90 mm[Hg] eCW1 ([facility]) Systolic blood pressure 175 mm[Hg] 175 mm[Hg] e CW1 ([facility]) Body temperature 95.9 [degF] 95.9 [degF] eCW1 ( [facility]) Respiratory rate 20 /min 20 /min eCW1 ([facility]) Heart rate 78 /min 78 /min eCW1 ([facility]) Body mass index (BMI) [Ratio] 27.06 kg/m2 27.06 kg/m2 W1 ([facility]) Body height 68 [in_i] 68 [in_i] eCW1 ([facility]) Body weight 178 [lb_av] 178 [lb_av] eCW1 ([facility]) Diastolic blood pressure 74 mm[Hg] 74 mm[Hg] eCW1 ([facility]) Systolic blood pressure 150 mm[Hg] 150 mm[Hg] e CW1 ([facility]) Respiratory rate 18 /min 18 /min eCW1 ([facility]) Heart rate 70 /min 70 /min eCW1 ([facility]) Body mass index (BMI) [Ratio] 26.30 kg/m2 26.30 kg/m2 eCW1 ([facility]) Body height 68 [in_i] 68 [in_i] eCW1 ([facility]) Body weight 173 [lb_av] 173 [lb_av] eCW1 ([facility]) Diastolic blood pressure 77 mm[Hg] 77 mm[Hg] eCW1 ([facility]) Systolic blood pressure 185 mm[Hg] 185 mm[Hg] e CW1 ([facility]) Body temperature 97.3 [degF] 97.3 [degF] eCW1 ( [facility]) Respiratory rate 18 /min 18 /min eCW1 ([facility]) Heart rate 70 /min 70 /min eCW1 ([facility]) Body mass index (BMI) [Ratio] 26.30 kg/m2 26.30 kg/m2 eCW1 ([facility]) Body height 68 [in_i] 68 [in_i] eCW1 ([facility]) Body weight 173 [lb_av] 173 [lb_av] eCW1 ([facility]) Diastolic blood pressure 85 mm[Hg] 85 mm[Hg] eCW1 ([facility]) Systolic blood pressure 167 mm[Hg] 167 mm[Hg] e CW1 ([facility]) Body temperature 97.9 [degF] 97.9 [degF] eCW1 ( [facility]) Respiratory rate 18 /min 18 /min eCW1 ([facility]) Heart rate 78 /min 78 /min eCW1 ([facility]) Body mass index (BMI) [Ratio] 26.15 kg/m2 26.15 kg/m2 eCW1 ([facility]) Body height 68 [in_i] 68 [in_i] eCW1 ([facility]) Body weight 172 [lb_av] 172 [lb_av] eCW1 ([facility]) Diastolic blood pressure 74 mm[Hg] 74 mm[Hg] eCW1 ([facility]) Systolic blood pressure 152 mm[Hg] 152 mm[Hg] e CW1 ([facility]) Body temperature 96.6 [degF] 96.6 [degF] eCW1 ( [facility]) Respiratory rate 20 /min 20 /min eCW1 ([facility]) Heart rate 67 /min 67 /min eCW1 ([facility]) Body mass index (BMI) [Ratio] 25.85 kg/m2 25.85 kg/m2 eCW1 ([facility]) Body height 68 [in_i] 68 [in_i] eCW1 ([facility]) Body weight 170 [lb_av] 170 [lb_av] eCW1 ([facility]) Diastolic blood pressure 120 mm[Hg] 120 mm[Hg] eCW1 ([facility]) Systolic blood pressure 210 mm[Hg] 210 mm[Hg] e CW1 ([facility]) Body temperature 96.8 [degF] 96.8 [degF] eCW1 ( [facility]) Respiratory rate 20 /min 20 /min eCW1 ([facility]) Heart rate 91 /min 91 /min eCW1 ([facility]) Body mass index (BMI) [Ratio] 25.69 kg/m2 25.69 kg/m2 W1 ([facility]) Body height 68 [in_i] 68 [in_i] eCW1 ([facility]) Body weight 169 [lb_av] 169 [lb_av] eCW1 ([facility]) Diastolic blood pressure 75 mm[Hg] 75 mm[Hg] eCW1 ([facility]) Systolic blood pressure 153 mm[Hg] 153 mm[Hg] e CW1 ([facility]) Body temperature 98.3 [degF] 98.3 [degF] eCW1 ( [facility]) Respiratory rate 18 /min 18 /min eCW1 ([facility]) Heart rate 82 /min 82 /min eCW1 ([facility]) Body mass index (BMI) [Ratio] 25.54 kg/m2 25.54 kg/m2 eCW1 ([facility]) Body height 68 [in_i] 68 [in_i] eCW1 ([facility]) Body weight 168 [lb_av] 168 [lb_av] eCW1 ([facility]) [place] body weight 166 [lb_av] 166 [lb_av] MEDEN T ([facility]) Body mass index (BMI) [Ratio] 24.5 kg/m2 24.5 k g/m2 MEDENT ([facility]) Body weight 171.00 [lb_av] 171.00 [lb_av] MEDEN T ([facility]) Body height 70 [in_i] 70 [in_i] [facility] ([facility]) 5'10" Respiratory rate 12 /min 12 /min [facility] ( [facility]) Body weight 78.076 kg 78.[address] [facility] ([facility]) Body mass index (BMI) [Ratio] 24.7 kg/m2 24.7 k g/m2 [facility] ([facility]) Body weight 172.12 [lb_av] 172.12 [lb_av] MEDEN T ([facility]) Body height 70 [in_i] 70 [in_i] [facility] ([facility]) 5'10" Diastolic blood pressure 73 mm[Hg] 73 mm[Hg] [facility] ([facility]) Systolic blood pressure 152 mm[Hg] 152 mm[Hg] M EDENT ([facility]) Body weight 77.736 kg 77.[address] [facility] ([facility]) Body mass index (BMI) [Ratio] 24.6 kg/m2 24.6 k g/m2 [facility] ([facility]) Body weight 171.38 [lb_av] 171.38 [lb_av] MEDEN T ([facility]) Body height 70 [in_i] 70 [in_i] [facility] ([facility]) 5'10" Diastolic blood pressure 82 mm[Hg] 82 mm[Hg[facility] Systolic blood pressure 142 mm[Hg] 142 mm[Hg] M EDENT ([facility], ) Diastolic blood pressure mm[Hg] eCW1 ([facility]) Systolic blood pressure 142 mm[Hg] 142 mm[Hg] e CW1 ([facility]) Body temperature 98.2 [degF] 98.2 [degF] eCW1 ( [facility]) Respiratory rate 17 /min 17 /min eCW1 ([facility]) Heart rate 65 /min 65 /min eCW1 ([facility]) Body mass index (BMI) [Ratio] 25.54 kg/m2 25.54 kg/m2 eCW1 ([facility]) Body height 68 [in_i] 68 [in_i] eCW1 ([facility]) Body weight 168 [lb_av] 168 [lb_av] eCW1 ([facility]) [place] body weight 166 [lb_av] 166 [lb_av] MEDEN T ([facility], ) Body mass index (BMI) [Ratio] 24.5 kg/m2 24.5 k g/m2 MEDENT ([facility], ) Body weight 171.00 [lb_av] 171.00 [lb_av] MEDEN T ([facility], ) Body height 70 [in_i] 70 [in_i] [facility] 5'10" Respiratory rate 12 /min 12 /min [facility] ( [facility] ) Heart rate 64 /min 64 /min [facility] ([facility] ) Diastolic blood pressure 50 mm[Hg] 50 mm[Hg] MEDENT ([facility], ) Systolic blood pressure 140 mm[Hg] 140 mm[Hg] M EDENT ([facility], ) Diastolic blood pressure mm[Hg] eCW1 ([facility]) Systolic blood pressure 122 mm[Hg] 122 mm[Hg] e CW1 ([facility]) Body temperature 97.7 [degF] 97.7 [degF] eCW1 ( [facility]) Respiratory rate 18 /min 18 /min eCW1 ([facility]) Heart rate 65 /min 65 /min eCW1 ([facility]) Body mass index (BMI) [Ratio] 26.45 kg/m2 26.45 kg/m2 eCW1 ([facility]) Body height 68 [in_us] 68 [in_us] eCW1 ([facility]) Body weight Measured 174 [lb_av] 174 [lb_av] eC W1 ([facility]) Diastolic blood pressure 78 mm[Hg] 78 mm[Hg] eCW1 ([facility]) Systolic blood pressure 132 mm[Hg] 132 mm[Hg] e CW1 ([facility]) Body temperature 97.5 [degF] 97.5 [degF] eCW1 ( [facility]) Respiratory rate 18 /min 18 /min eCW1 ([facility]) Heart rate 96 /min 96 /min eCW1 ([facility]) Body mass index (BMI) [Ratio] 22.04 kg/m2 22.04 kg/m2 eCW1 ([facility]) Body height 68 [in_us] 68 [in_us] eCW1 ([facility]) Body weight Measured 145 [lb_av] 145 [lb_av] eC W1 ([facility]) Deprecated Oxygen saturation in Capillary blood by Oximetry 99 % 99 % eCW1 ([facility]) Respiratory rate 16 /min 16 /min eCW1 ([facility]) Heart rate 89 /min 89 /min eCW1 ([facility]) Body temperature 97.9 [degF] 97.9 [degF] eCW1 ( [facility]) Body mass index (BMI) [Ratio] 24.08 kg/m2 24.08 kg/m2 eCW1 ([facility]) Body weight Measured 158.4 [lb_av] 158.4 [lb_av ] eCW1 ([facility]) Body height 68 [in_us] 68 [in_us] eCW1 ([facility]) ID Date Data Source [id number] 03/24/2020 07:15:41 AM [facility] Hospital Name Value Range Interpretation Code Description Data Source(s) WEIGHT RECORDED 167 lb 167 lb [facility] Body height Measured 66 in 66 in [facility] ID Date Data Source [id number] 06/26/2019 08:43:26 AM [facility] Name Value Range Interpretation Code Description Data Source(s) WEIGHT RECORDED 173 lb 173 lb [facility] Body height Measured 70 in 70 in [facility] ID Date Data Source [id number] 08/07/2019 07:54:51 AM [facility] Name Value Range Interpretation Code Description Data Source(s) WEIGHT RECORDED 173 lb 173 lb [facility] Body height Measured 70 in 70 in [facility] Patient Treatment Plan of Care Planned Activity Planned Date Details Description Data Source (s) Sulfamethoxazole 800 MG / Trimethoprim 160 MG Oral Tab let [Bactrim] 04/05/2020 12:00:00 AM [place] [id number] ([facility]) Finasteride 5 MG Oral Tablet 03/07/2020 12:00:00 AM [facility] Finasteride 5 MG Oral Tablet [Proscar] 01/09/2020 12:00:00 AM [place] [id number] ([facility]) Finasteride 5 MG Oral Tablet [Proscar] 01/09/2020 12:00:00 AM [place] [id number] ([facility]) atorvastatin 40 MG Oral Tablet 12/25/2019 12:00:00 AM [facility] apixaban 2.5 MG Oral Tablet [Eliquis] 12/20/2019 12:00:00 AM [facility] Amlodipine 10 MG Oral Tablet 12/18/2019 12:00:00 AM [facility] Cephalexin 250 MG 12/15/2019 01:00:00 AM EDT [facility]) MetFORMIN HCl 1000 MG 11/26/2019 01:00:00 AM EDT [facility]) Tamsulosin HCl 0.4 MG [facility] At[facility] Calcium 40 MG 11/26/2019 01:00:00 AM EDT [facility]) Pravastatin Sodium 20 MG 11/26/2019 01:00:[address] [facility] Losartan Potassium-HCTZ 100-12.5 MG 11/26/2019 01:00:[address] [facility]) Iron (Ferrous Sulfate) 142 (45 Fe) MG 11/26/2019 01:00:[address] [facility]) Omeprazole 20 MG 11/26/2019 01:00:00 AM EDT [facility] ([facility]) Daily Multivitamin 11/26/2019 01:00:00 AM EDT [facility]) B12 Folate 800-800 MCG 11/26/2019 01:00:00 AM EDT [facility] ([facility]) Insulin Detemir 100 UNIT/ML 11/26/2019 01:00:00 AM EDT [facility]) Eliquis 2.5 MG 11/26/2019 01:00:00 AM EDT [facility] ([facility]) AmLODIPine Besylate 10 MG 11/22/2019 01:00:00 AM EDT [facility] ([facility]) Cephalexin 500 MG Oral Capsule [Keflex] 08/23/2019 12:00:00 AM [facility] [email or web address] ([facility]) Tamsulosin hydrochloride 0.4 MG Oral Capsule 07/17/2019 12:00:00 AM [facility]. Devices (DURABLE MEDICAL EQUIPMENT SEE SIG) XX M ISC 07/03/2019 12:00:00 AM [facility] Ibuprofen 200 MG 06/26/2019 12:00:00 AM [facility]) [facility] Devices (DURABLE MEDICAL EQUIPMENT SEE SIG) XX M ISC 06/23/2019 12:00:00 AM [facility] Tylenol Extra Strength 500 MG 06/20/2019 12:00:00 AM EST [facility]) Tamsulosin HCl 0.4 MG 06/16/2019 12:00:00 AM EST [facility] ([facility]) Omeprazole 20 MG 06/16/2019 12:00:00 AM EST [facility] ([facility]) Pravastatin Sodium 20 MG 06/16/2019 12:00:[address] [facility] ([facility]) Ferrous Sulfate 325 (65 Fe) MG 06/16/2019 12:00:00 AM [facility]) Losartan Potassium 100 MG 06/16/2019 12:00:[address] [facility] ([facility]) MetFORMIN HCl 1000 MG 06/16/2019 12:00:[address] [facility] ([facility]) Senna 8.6 MG 06/16/2019 12:00:00 AM [facility] ([facility]) Heparin Lock Flush 100 UNIT/ML 06/16/2019 12:00:00 AM [facility]) Normal Saline Flush 0.9 % 06/16/2019 12:00:00 AM [facility]) CefTRIAXone Sodium 2 GM 06/16/2019 12:00:00 AM [facility]) Vancomycin HCl 1.5 GM 06/16/2019 12:00:00 AM [facility]) Lantus SoloStar 100 UNIT/ML 06/16/2019 12:00:[address] [facility] ([facility]) Normal Saline Flush 0.9 % Intravenous Solution 06/16/2019 12:00:00 AM [facility] 3 ML heparin sodium, porcine 100 UNT/ML Prefilled Syri nge 06/16/2019 12:00:00 AM [facility] Tamsulosin hydrochloride 0.4 MG Oral Capsule 06/16/2019 12:00:00 AM [facility] POLYETHYLENE GLYCOL 3350 142 MG/ML Oral Solution 06/16/2019 12:00:0 0 AM [facility] Ceftriaxone 2000 MG Injection 06/16/2019 12:00:00 AM [facility] Vancomycin HCl 1.5 GM Intravenous Solution Reconstitut ed (VANCOCIN) 06/16/2019 12:00:00 AM [facility] Tamsulosin hydrochloride 0.4 MG Oral Capsule 06/16/2019 12:00:00 AM [facility] POLYETHYLENE GLYCOL 3350 142 MG/ML Oral Solution 06/16/2019 12:00:0 0 AM [facility] Tamsulosin hydrochloride 0.4 MG Oral Capsule 06/16/2019 12:00:00 AM [facility] POLYETHYLENE GLYCOL 3350 142 MG/ML Oral Solution 06/16/2019 12:00:0 0 AM [facility] sennosides, FCI 8.6 MG Oral Tablet 06/15/2019 12:00:00 AM [facility] ferrous sulfate 325 MG Oral Tablet 06/15/2019 12:00:00 AM [facility] Vancomycin HCl 1500 MG/300ML Intravenous Solution (VAN COCIN) 06/15/2019 12:00:00 AM [facility] Ceftriaxone 2000 MG Injection 06/15/2019 12:00:00 AM [facility] Acetaminophen 325 MG Oral Tablet 06/15/2019 12:00:00 AM [facility] sennosides, FCI 8.6 MG Oral Tablet 06/15/2019 12:00:00 AM [facility] ferrous sulfate 325 MG Oral Tablet 06/15/2019 12:00:00 AM [facility] ferrous sulfate 325 MG Oral Tablet 06/15/2019 12:00:00 AM [facility] ferrous sulfate 325 MG Oral Tablet 06/15/2019 12:00:00 AM [facility] sennosides, FCI 8.6 MG Oral Tablet 06/15/2019 12:00:00 AM [facility] Hydralazine Hydrochloride 20 MG/ML Injectable Solution 06/14/2019 07:49:21 AM [facility] Bisacodyl 10 MG Rectal Suppository 06/13/2019 10:27:21 AM [facility] sodium chloride (preservative free) 0.9 % flush 10 mL 06/13/2019 10:26:31 AM [facility] Glucose 0.4 MG/MG Oral Gel 06/11/2019 02:11:29 PM [facility] dextrose 50 % IV solution 25 mL 06/10/2019 11:20:42 PM [facility] Glucagon 1 MG Injection 06/10/2019 11:20:42 PM [facility] Glucose 0.4 MG/MG Oral Gel 06/10/2019 11:20:42 PM [facility] Pravastatin Sodium 20 MG Oral Tablet [facility] Acetaminophen 325 MG Oral Tablet [facility] meloxicam 15 MG Oral Tablet [facility] tramadol hydrochloride 50 MG Oral Tablet [facility]
--- OUTSIDE RECORDS SUMMARY | 2020-08-10 05:39 | CCD ---
Author Author [facility] Organization [facility] Address Unknown Phone Unavailable Care Team Providers Care Public Health Teacher Name Role Phone Shanelle Barrera MD Unavailable [...] Unavailable Unavailable Nory Martinez MD Unavailable Unavailable Nroy Martinez MD Unavailable Unavailable Nory Martinez MD [...] Unavailable Unavailable Juanpablo Jones MD Unavailable Unavailable Karen, Juanpablo Escamilla [...] is protected by Article 27-F of the [facility] Public Health law. If you continue you may have access to information: Regarding HIV / AIDS; Provided by facilities licensed or operated by the [facility] Office of Mental Health; or Provided by the [facility] Office for People With Developmental Disabilities. If such information is present, then the following [facility] mandated warning applies: This information has [...] Class NO KNOWN ALLERGIES NO KNOWN ALLERGIES [facility] No Known Drug Allergies No Known Drug Allergies No Known Drug Aller gies active [facility] ([facility] ) Encounters Encounter Providers Location Date Indications Data Source(s ) Outpatient Attender: Yosef Barrera MD 03/16/2022 12:00:00 AM ED [facility] Unknown [address] [facility] [address] 08/05/2020 12:00:00 AM EST eCW1 ([facility]) Outpatient [address] [address] 08/05/2020 12:00:00 AM EST eCW1 ([facility]) Outpatient [address] [facility] [address] 07/16/2020 12:00:00 AM EST eCW1 ([facility]) Outpatient [address] [facility] [address] 06/27/2020 12:00:00 AM EST eCW1 ([facility]) Outpatient [address] [facility] [address] 06/20/2020 12:00:00 AM EST eCW1 ([facility]) Unknown [address] [facility] [address] 05/29/2020 12:00:00 AM EST eCW1 ([facility]) Unknown [address] [facility] [address] 05/29/2020 12:00:00 AM EST eCW1 ([facility]) Outpatient [address] [facility] [address] 05/20/2020 12:00:00 AM EST eCW1 ([facility]) Unknown [address] [facility] [address] 05/20/2020 12:00:00 AM EST eCW1 ([facility]) Outpatient [address] [facility] [address] 04/05/2020 12:00:00 AM EDT eCW1 ([facility]) Outpatient [address] [facility] [address] 03/26/2020 12:00:00 AM EDT eCW1 ([facility]) Unknown [address] [facility] [address] 03/26/2020 12:00:00 AM EDT eCW1 ([facility]) Office Visit Attender: Andi Jones MD Main office - [facility] 03/25/2020 01:15:00 PM EDT MEDENT ([facility]) Outpatient Attender: Yosef Barrera MD [id number] 03/11/2020 12:00:00 AM EDT Discitis, unspecified, lumbar [facility] Discitis, unspecified, lumbar region Outpatient Referrer: Yosef Barrera MD 03/11/2020 12:00:00 AM EDT Discitis, unspecified, lumbar region [facility] Discitis, unspecified, lumbar region Outpatient Attender: Marii Calderon/Hal/Anthony/ Abbey 01/15/2020 03:15:00 PM EDT MEDENT ([facility]) Outpatient [address] [facility] [address] 01/09/2020 12:00:00 AM EDT eCW1 ([facility]) Unknown [address] [facility] [address] 01/09/2020 12:00:00 AM EDT eCW1 [facility] Outpatient Attender: Andi Jones MD Main office [facility] 12/25/2019 09:00:00 AM EDT MEDENT ([facility], ) [facility] [address] [facility] [address] 12/19/2019 12:00:00 AM EDT eCW1 ([facility]) Unknown [address] [facility] [address] 12/12/2019 12:00:00 AM EDT eCW1 ([facility]) Outpatient Attender: HENRY CLARKE MD 12/12/2019 12:00:0 0 AM EDT [facility] Unknown [address] [facility] [address] 12/11/2019 12:00:00 AM EDT eCW1 ([facility]) Unknown [address] [facility] [address] 12/11/2019 12:00:00 AM EDT eCW1 ([facility]) Unknown [address] [facility] [address] 12/08/2019 12:00:00 AM EDT eCW1 ([facility]) Unknown [address] [facility] [address] 12/08/2019 12:00:00 AM EDT eCW1 [facility]) Outpatient Referrer: DEMETRIUS PERSON MD 12/07/2019 06:08:00 AM EDT [facility] Outpatient Attender: Bill Winter MD 12/06/2019 12:00:00 A M EDT [facility] Unknown [address] [facility] [address] 12/04/2019 12:00:00 AM EDT eCW1 ([facility]) 11/26/2019 01:00:00 AM EDT - 020 09:15:59 AM EDT NETSMART ([facility]) Outpatient Attender: Bill Winter MD 11/22/2019 12:00:00 A M [facility] [address] [place] [address], [facility] [address] 11/16/2019 12:00:00 AM EDT eCW1 ([facility]) [facility] [address] [place] [address] 10/19/2019 12:00:00 AM EDT eCW1 ([facility]) [facility] [address] [facility] [place] [address] 10/17/2019 12:00:00 AM EDT eCW1 ([facility]) [facility] [address] [place] [address] [place] [address] 09/15/2019 12:00:00 AM EDT eCW1 ([facility]) [facility] [address] [place] [address] [place] [address] 09/13/2019 12:00:00 AM EDT eCW1 ([facility]) Outpatient Referrer: Yosef Barrera MD 09/08/2019 12:00:00 AM EDT Discitis, unspecified, lumbar region [facility] Discitis, unspecified, lumbar region Outpatient Attender: Yosef Barrera MD [id number] 09/08/2019 12:00:00 AM [facility] Outpatient Attender: Yosef Barrera MD 09/04/2019 12:00:00 AM [facility] [address] [facility] [address] 08/23/2019 12:00:00 AM EST eCW1 ([facility]) [facility] C [facility] 08/14/2019 12:00:00 AM EST eCW1 ([facility]) Outpatient Referrer: DEMETRIUS PERSON MD 07/25/2019 12:16:00 PM EST [facility] Outpatient Attender: BENJAMIN Hurtadoferrer: DONNA VELEZ [id number] 07/24/2019 12:00:00 AM EST - 07/24/2019 11:56:58 AM EST [facility] Outpatient Attender: Yosef Barrera MD [id number] 07/21/2019 12:00:00 AM E [facility] C ENTER 07/21/2019 12:00:00 AM EST eCW1 ([facility]) Outpatient Attender: Christopher Martinez MDReferrer: Christopher Martinez MDConsultant: Christopher Martinez MD 07/18/2019 01:14:0 0 PM EST - 07/18/2019 01:24:00 PM EST [facility] C ENTER 07/13/2019 12:00:00 AM EST eCW1 ([facility]) Outpatient Attender: Christopher Martinez MDReferrer: Christopher Martinez MDConsultant: Christopher Martinez MD 07/10/2019 10:52:0 0 AM EST - 07/10/2019 11:02:00 AM EST [facility] Outpatient Attender: BENJAMIN Hurtadoferrer: DONNA VELEZ [id number] 07/10/2019 12:00:00 AM EST - 07/10/2019 02:15:44 PM EST Extradural and subdural abscess, unspecified [facility] Extradural and subdural abscess, unspeci fied [facility] C ENTER 07/04/2019 12:00:00 AM EST eCW1 ([facility]) Outpatient Attender: Christopher Martinez MDReferrer: Christopher Martinez MDConsultant: Christopher Martinez MD 07/03/2019 04:12:0 0 PM EST - 07/03/2019 04:22:00 PM [facility] Outpatient Attender: Bill Winter MD 06/30/2019 09:29:00 A M [facility] Outpatient Referrer: DEMETRIUS PERSON MD 06/30/2019 08:20:00 AM EST [facility] 06/30/2019 12: 00:00 AM EST eCW1 ([facility]) Outpatient Attender: Christopher Martinez MDReferrer: Christopher Martinez MDConsultant: Christopher Martinez MD 06/29/2019 03:38:0 0 PM EST - 06/29/2019 03:48:00 PM [facility] Outpatient Attender: Christopher Martinez MDReferrer: Christopher Martinez MDConsultant: Christopher Martinez MD 06/26/2019 02:46:0 0 PM EST - 06/26/2019 02:56:00 PM [facility] Outpatient Referrer: Cleo GALLAGHER 06/23/2019 12 :00:00 AM EST Extradural and subdural abscess, unspecified [facility] Extradural and subdural abscess, unspeci fied Outpatient Attender: Yosef Barrera MD [id number] 06/23/2019 12:00:00 AM E [facility] Outpatient Attender: Christopher Martinez MDReferrer: Christopher Martinez MDConsultant: Christopher Martinez MD 06/19/2019 03:51:0 0 PM EST - 06/19/2019 04:01:00 PM [facility] 06/16/2019 12:00:00 AM EST - 020 11:07:01 AM EST [facility] Inpatient Attender: Chriss Chirinos tatyana: DONNA OLIVOAttender: DIONY KEITA MDAttender: MIMI OSPINA MDAdmitter: DIONY KEITA MDReferrer: DIONY KEITA MD [id number] 06/10/2019 12:00:00 AM EST - 06/15/2019 12:00:00 AM ES T Discitis, unspecified, lumbar region [facility] Discitis, unspecified, lumbar region Patient discharged. Immunizations Vaccine Date Status Description Data Source(s) New in 2011. IIV4 03/11/2020 09:16:00 AM EDT completed eCW1 ([facility]) New in 2011. IIV4 03/11/2020 09:16:00 AM EDT completed eCW1 ([facility]) New in 2011. IIV4 03/11/2020 09:16:00 AM EDT completed eCW1 ([facility]) New in 2011. IIV4 03/11/2020 09:16:00 AM EDT completed eCW1 ([facility]) New in 2011. IIV4 03/11/2020 09:16:00 AM EDT completed eCW1 ([facility]) New in 2011. IIV4 06/14/2019 12:00:00 AM EST completed In fluenza Quad IM Pres Free (0.5 mL dose) 06/14/2019 [facility] Medications Medication Brand Name Start Date Product Form Dose Route Admi nistrative Instructions Pharmacy Instructions Status Indications Reaction Description Data Source(s) 100 mcg/0.5 mL 07/15/2020 12:00:00 AM EST suspension 0 INJECT BY [facility] (FIRST DOSE) INJECT BY [facility] (FIRST DOSE) SOLD: 07/15/2020 [facility] 250 mg 06/29/2020 12:00:00 AM EST tablet 7 TAKE ONE TABLET BY MOUTH DAILY TAKE ONE TABLET BY MOUTH DAILY SOLD: 06/29/2020 [facility] 2.5 mg 06/29/2020 12:00:00 AM EST [...] suspended Bactrim DS 800-160 MG eCW1 ( [facility]) Sulfamethoxazole 800 MG / Trimethoprim 1 60 MG Oral Tablet [Bactrim] Bactrim DS 800-160 MG Bactrim DS 800-160 MG 04/05/2020 12:00:00 AM EDT 1.0 {table t} active Bactrim DS 800-160 MG eCW1 ( [facility]) Sulfamethoxazole 800 MG / Trimethoprim 1 60 MG Oral Tablet [Bactrim] Bactrim DS 800-160 MG Bactrim DS 800-160 MG 04/05/2020 12:00:00 AM EDT 1.0 {table t} active Bactrim DS 800-160 MG eCW1 ( [facility]) Sulfamethoxazole 800 MG / Trimethoprim 1 60 MG Oral Tablet [Bactrim] Bactrim DS 800-160 MG Bactrim DS 800-160 MG 04/05/2020 12:00:00 AM EDT 1.0 {table t} suspended Bactrim DS 800-160 MG eCW1 ( [facility]) Sulfamethoxazole 800 MG / Trimethoprim 1 60 MG Oral Tablet [Bactrim] Bactrim DS 800-160 MG Bactrim DS 800-160 MG 04/05/2020 12:00:00 AM EDT 1.0 {table t} active Bactrim DS 800-160 MG eCW1 ( [facility]) Sulfamethoxazole 800 MG / Trimethoprim 1 60 MG Oral Tablet [Bactrim] Bactrim DS 800-160 MG Bactrim DS 800-160 MG 04/05/2020 12:00:00 AM EDT 1.0 {table t} suspended Bactrim DS 800-160 MG eCW1 ( [facility]) Sulfamethoxazole 800 MG / Trimethoprim 1 60 MG Oral Tablet [Bactrim] Bactrim DS 800-160 MG Bactrim DS 800-160 MG 04/05/2020 12:00:00 AM EDT 1.0 {table t} suspended Bactrim DS 800-160 MG eCW1 ( [facility]) Sulfamethoxazole 800 MG / Trimethoprim 1 60 MG Oral Tablet [Bactrim] Bactrim DS 800-160 MG Bactrim DS 800-160 MG 04/05/2020 12:00:00 AM EDT 1.0 {table t} active Bactrim DS 800-160 MG eCW1 ( [facility]) Sulfamethoxazole 800 MG / Trimethoprim 1 60 MG Oral Tablet [Bactrim] Bactrim DS 800-160 MG Bactrim DS 800-160 MG 04/05/2020 12:00:00 AM EDT 1.0 {table t} active Bactrim DS 800-160 MG eCW1 ( [facility]) Sulfamethoxazole 800 MG / Trimethoprim 1 60 MG Oral Tablet [Bactrim] Bactrim DS 800-160 MG Bactrim DS 800-160 MG 04/05/2020 12:00:00 AM EDT 1.0 {table t} active Bactrim DS 800-160 MG eCW1 ( [facility]) 100 mg 03/11/2020 12:00:00 AM EDT tablet [...] Oral Tablet (PROSCAR) 03/07/2020 12:00:00 AM EDT [facility] 20 mg 02/27/2020 12:00:00 AM EDT capsule,delayed [...] {tablet} active Pr lian 5 MG eCW1 ([facility]) Finasteride 5 MG Oral Tablet [Proscar] Proscar 5 MG Proscar 5 MG 01/09/2020 12:00:00 AM EDT 1.0 {tablet} active Pr lian 5 MG eCW1 ([facility]) Finasteride 5 MG Oral Tablet FINASTERIDE 01/09/2020 12:00:00 AM EDT ta blet 30 TAKE ONE TABLET BY MOUTH ONCE DAILY TAKE ONE TABLET BY MOUTH ONCE DAILY SOLD: 03/08/2020 [facility] Finasteride 5 MG Oral Tablet [Proscar] Proscar 5 MG Proscar 5 MG 01/09/2020 12:00:00 AM EDT 1.0 {tablet} active Pr lain 5 MG eCW1 ([facility]) Finasteride 5 MG Oral Tablet FINASTERIDE 01/09/2020 12:00:00 AM EDT ta blet 30 TAKE ONE TABLET BY MOUTH ONCE DAILY TAKE ONE TABLET BY MOUTH ONCE DAILY SOLD: 06/02/2020 [facility] Finasteride 5 MG Oral Tablet [Proscar] Proscar 5 MG Proscar 5 MG 01/09/2020 12:00:00 AM EDT 1.0 {tablet} active Pr lian 5 MG eCW1 ([facility]) Finasteride 5 MG Oral Tablet [Proscar] Proscar 5 MG Proscar 5 MG 01/09/2020 12:00:00 AM EDT 1.0 {tablet} active Pr lian 5 MG eCW1 ([facility]) Finasteride 5 MG Oral Tablet [Proscar] Proscar 5 MG Proscar 5 MG 01/09/2020 12:00:00 AM EDT 1.0 {tablet} active Pr lian 5 MG eCW1 ([facility]) Finasteride 5 MG Oral Tablet [Proscar] Proscar 5 MG Proscar 5 MG 01/09/2020 12:00:00 AM EDT 1.0 {tablet} active Pr lian 5 MG eCW1 ([facility]) Finasteride 5 MG Oral Tablet FINASTERIDE 01/09/2020 12:00:00 AM EDT ta blet 30 TAKE ONE TABLET BY MOUTH ONCE DAILY TAKE ONE TABLET BY MOUTH ONCE DAILY SOLD: 01/10/2020 [facility] Finasteride 5 MG Oral Tablet [Proscar] Proscar 5 MG Proscar 5 MG 01/09/2020 12:00:00 AM EDT 1.0 {tablet} active Pr lian 5 MG eCW1 ([facility]) Finasteride 5 MG Oral Tablet [Proscar] Proscar 5 MG Proscar 5 MG 01/09/2020 12:00:00 AM EDT 1.0 {tablet} active Pr lian 5 MG eCW1 ([facility]) Finasteride 5 MG Oral Tablet FINASTERIDE 01/09/2020 12:00:00 AM EDT ta blet 30 TAKE ONE TABLET BY MOUTH ONCE DAILY TAKE ONE TABLET BY MOUTH ONCE DAILY SOLD: 05/07/2020 [facility] Finasteride 5 MG Oral Tablet [Proscar] Proscar 5 MG Proscar 5 MG 01/09/2020 12:00:00 AM EDT 1.0 {tablet} active Pr lian 5 MG eCW1 ([facility]) Finasteride 5 MG Oral Tablet FINASTERIDE 01/09/2020 [...] {tablet} active Pr lian 5 MG eCW1 ([facility]) Finasteride 5 MG Oral Tablet FINASTERIDE 01/09/2020 12:00:00 AM EDT ta blet 30 TAKE ONE TABLET BY MOUTH ONCE DAILY TAKE ONE TABLET BY MOUTH ONCE DAILY SOLD: 02/09/2020 [facility] Finasteride 5 MG Oral Tablet [Proscar] Proscar 5 MG Proscar 5 MG 01/09/2020 12:00:00 AM EDT 1.0 {tablet} active Pr lian 5 MG eCW1 ([facility]) Finasteride 5 MG Oral Tablet [Proscar] Proscar 5 MG Proscar 5 MG 01/09/2020 12:00:00 AM EDT 1.0 {tablet} active Pr lian 5 MG eCW1 ([facility]) Finasteride 5 MG Oral Tablet [Proscar] Proscar 5 MG Proscar 5 MG 01/09/2020 12:00:00 AM EDT 1.0 {tablet} active Pr lian 5 MG eCW1 ([facility]) atorvastatin 40 MG Oral Tablet ATORVASTATIN CALCIUM [...] Oral active Take 40 mg by mouth [facility] 2.5 mg 12/20/2019 12:00:00 AM EDT tablet [...] 2.5 mg by mouth Two Times Daily [facility] 10 mg 12/18/2019 12:00:00 AM EDT [...] Tablet (NORVASC) 12/18/2019 12:00:00 AM EDT active [facility] Cephalexin 250 MG Cephalexin 12/15/2019 01:00:00 AM EDT completed NETSMART ([facility] ) 250 mg 12/15/2019 12:00:00 AM EDT capsule 40 TAKE ONE CAPSULE BY MOUTH FOUR TIMES A DAY FOR 10 DAYS TAKE ONE CAPSULE BY MOUTH FOUR TIMES A DAY FOR 10 DAYS SOLD: 12/15/2019 [facility] Tamsulosin HCl 0.4 MG Tamsulosin HCl 11/26/2019 01:00:00 AM EDT 0.4 {mg} completed NETSMART ([facility]) MetFORMIN HCl 1000 MG MetFORMIN HCl 11/26/2019 01:00:00 AM EDT completed NETSMART ([facility]) Pravastatin Sodium 20 MG Pravastatin Sodium 11/26/2019 01:00:00 AM EDT completed NETSMART ([facility]) Atorvastatin Calcium 40 MG Atorvastatin Calcium 11/26/2019 01:00:00 A M EDT completed NETSMART ( [facility]) Losartan Potassium-HCTZ 100-12.5 MG Losartan Potassium-HCTZ 11/26/2019 01:00:00 AM EDT completed NETSMAR T ([facility]) Eliquis 2.5 MG Eliquis 11/26/2019 01:00:00 AM EDT 0 {mg} completed NETSMART ([facility] ) Insulin Detemir 100 UNIT/ML Insulin Detemir 11/26/2019 01:00:00 AM EDT 8.0 {unit} completed NETSMART ([facility]) B12 Folate 800-800 MCG B12 Folate 11/26/2019 01:00:00 AM EDT completed NETSMART ([facility]) Daily Multivitamin Daily Multivitamin 11/26/2019 01:00:00 AM EDT completed NETSMART ([facility]) Omeprazole 20 MG Omeprazole 11/26/2019 01:00:00 AM EDT completed NETSMART ([facility] ) Iron (Ferrous Sulfate) 142 (45 Fe) MG Iron (Ferrous Sulfate) 11/26/2019 01:00:00 AM EDT completed NETSMA RT ([facility]) 40 mg 11/23/2019 12:00:00 AM EDT tablet [...] A M EDT 0 {mg} completed NETSMART ([facility]) 20 mg 11/13/2019 12:00:00 AM [...] TABLET BY MOUTH EVERY DAY SOLD: 09/22/2019 [facility] 100 mg 09/20/2019 12:00:00 AM EDT [...] EST suspended Kefle x 500 MG eCW1 ([facility]) Cephalexin 500 MG Oral Capsule [Keflex] Keflex 500 MG Keflex 500 MG 08/23/2019 12:00:00 AM EST suspended Kefle x 500 MG eCW1 ([facility]) Cephalexin 500 MG Oral Capsule [Keflex] Keflex 500 MG Keflex 500 MG 08/23/2019 12:00:00 AM EST suspended Kefle x 500 MG eCW1 ([facility]) Cephalexin 500 MG Oral Capsule [Keflex] Keflex 500 MG Keflex 500 MG 08/23/2019 12:00:00 AM EST active 1 capsul e 1 hour prior to your cystoscopy eCW1 ([facility]) Cephalexin 500 MG Oral Capsule [Keflex] Keflex 500 MG Keflex 500 MG 08/23/2019 12:00:00 AM EST suspended Kefle x 500 MG eCW1 ([facility]) Cephalexin 500 MG Oral Capsule [Keflex] Keflex 500 MG Keflex 500 MG 08/23/2019 12:00:00 AM EST suspended Kefle x 500 MG eCW1 ([facility]) Cephalexin 500 MG Oral Capsule [Keflex] Keflex 500 MG Keflex 500 MG 08/23/2019 12:00:00 AM EST suspended Kefle x 500 MG eCW1 ([facility]) Cephalexin 500 MG Oral Capsule [Keflex] Keflex 500 MG Keflex 500 MG 08/23/2019 12:00:00 AM EST active Keflex 5 00 MG eCW1 ([facility]) Cephalexin 500 MG Oral Capsule [Keflex] Keflex 500 MG Keflex 500 MG 08/23/2019 12:00:00 AM EST suspended Kefle x 500 MG eCW1 ([facility]) Cephalexin 500 MG Oral Capsule [Keflex] Keflex 500 MG Keflex 500 MG 08/23/2019 12:00:00 AM EST suspended Kefle x 500 MG eCW1 ([facility]) Cephalexin 500 MG Oral Capsule [Keflex] Keflex 500 MG Keflex 500 MG 08/23/2019 12:00:00 AM EST suspended 1 capsule 1 hour prior to your cystoscopy eCW1 ([facility]) Cephalexin 500 MG Oral Capsule [Keflex] Keflex 500 MG Keflex 500 MG 08/23/2019 12:00:00 AM EST active Keflex 5 00 MG eCW1 ([facility]) Cephalexin 500 MG Oral Capsule [Keflex] Keflex 500 MG Keflex 500 MG 08/23/2019 12:00:00 AM EST suspended Kefle x 500 MG eCW1 ([facility]) Cephalexin 500 MG Oral Capsule [Keflex] Keflex 500 MG Keflex 500 MG 08/23/2019 12:00:00 AM EST active Keflex 5 00 MG eCW1 ([facility]) Cephalexin 500 MG Oral Capsule [Keflex] Keflex 500 MG Keflex 500 MG 08/23/2019 12:00:00 AM EST suspended Kefle x 500 MG eCW1 ([facility]) Cephalexin 500 MG Oral Capsule [Keflex] Keflex 500 MG Keflex 500 MG 08/23/2019 12:00:00 AM EST suspended Kefle x 500 MG eCW1 ([facility]) Cephalexin 500 MG Oral Capsule [Keflex] Keflex 500 MG Keflex 500 MG 08/23/2019 12:00:00 AM EST active Keflex 5 00 MG eCW1 ([facility]) Cephalexin 500 MG Oral Capsule [Keflex] Keflex 500 MG Keflex 500 MG 08/23/2019 12:00:00 AM EST active Keflex 5 00 MG eCW1 ([facility]) Cephalexin 500 MG Oral Capsule [Keflex] Keflex 500 MG Keflex 500 MG 08/23/2019 12:00:00 AM EST suspended Kefle x 500 MG eCW1 ([facility]) Cephalexin 500 MG Oral Capsule [Keflex] Keflex 500 MG Keflex 500 MG 08/23/2019 12:00:00 AM EST active Keflex 5 00 MG eCW1 ([facility]) Cephalexin 500 MG Oral Capsule [Keflex] Keflex 500 MG Keflex 500 MG 08/23/2019 12:00:00 AM EST suspended Kefle x 500 MG eCW1 ([facility]) Cephalexin 500 MG Oral Capsule [Keflex] Keflex 500 MG Keflex 500 MG 08/23/2019 12:00:00 AM EST suspended Kefle x 500 MG eCW1 ([facility]) 20 mg 08/21/2019 12:00:00 AM EST capsule,delayed [...] TABLET BY MOUTH EVERY DAY SOLD: 07/25/2019 [facility] Tamsulosin hydrochloride 0.4 MG Oral Cap delphine Tamsulosin HCl 0.4 MG Oral Capsule (FLOMAX) Tamsulosin HCl 0.4 MG Oral Capsule (FLOMAX) 07/17/2019 12:00 :00 AM EST 0.4 mg Oral aborted Take 1 capsule b y mouth daily [facility] 0.4 mg 07/17/2019 12:00:00 AM EST capsule 30 TAKE ONE CAPSULE BY MOUTH EVERY DAY TAKE ONE CAPSULE BY MOUTH EVERY DAY SOLD: 07/18/2019 [employer] Misc. Devices (DURABLE MEDICAL EQUIPMENT SEE SIG) XX [facility] 97 [id number] 07/03/2019 12:00:00 AM EST aborted Use as directed. Wheel chair Dx: Back pain [facility] Ibuprofen 200 MG Ibuprofen 06/26/2019 12:00:00 AM EST completed NETSMART ([facility]) Misc. Devices (DURABLE MEDICAL EQUIPMENT SEE SIG) XX [facility] 97 [id number] 06/23/2019 12:00:00 AM EST aborted Use as directed. Urinary leg bag Dx: R33.9 [facility] Tylenol Extra Strength 500 MG Tylenol Extra Strength 06/20/2019 12:00:00 AM EST 0 {tablet} completed NET SMART ([facility]) POLYETHYLENE GLYCOL 3350 142 MG/ML Oral Solution Polyethylene Glycol 3350 Oral Packet (MIRALAX) Polyethylene Glycol 3350 Oral Packet (MIRALAX) 019 12:00:00 AM EST 17 g Oral aborted Take 1 packet by mouth daily Please substitute bottle for packets, if packets are unavailable. [facility] Tamsulosin hydrochloride 0.4 MG Oral Cap delphine Tamsulosin HCl 0.4 MG Oral Capsule (FLOMAX) Tamsulosin HCl 0.4 MG Oral Capsule (FLOMAX) 06/16/2019 12:00 :00 AM EST 0.4 mg Oral aborted Take 1 capsule b y mouth daily [facility] Lantus SoloStar 100 UNIT/ML Lantus SoloStar 06/16/2019 12:00:00 AM EST 8.0 {unit} completed NETSMART ([facility]) MetFORMIN HCl 1000 MG MetFORMIN HCl 06/16/2019 12:00:00 AM EST completed [facility]SMART ([facility]) Senna 8.6 MG Senna 06/16/2019 12:00:00 AM EST 2.0 {tablet} completed NETSMART ([facility]) 3 ML heparin sodium, porcine 100 UNT/ML Prefilled Syringe Heparin Lock Flush 100 UNIT/ML Intravenous Solution Heparin Lock Flush 100 UNIT/ML Intraveno us Solution 06/16/2019 12:00:00 AM EST 500 U Intracatheter aborted Encounter for long-term (current) use of antibioticsDiscitis of lumbar regionEpidural abscess 5 mLs by Intracatheter route as needed (For after IV infusion and as needed) [facility] Encounter for long-term (current) use of [...] into the vein every 24 (twenty-four) hours [facility] Encounter for long-term (current) use of antibiotics Discitis of lumbar region Epidural abscess Vancomycin HCl 1.5 GM Intravenous Solution Reconstitut ed (VANCOCIN) [id number] 06/16/2019 12:00:00 AM EST 1500 mg Intravenous a borted Encounter for long-term (current) use of antibioticsDiscitis of lumbar regionEpidural abscess Inject 1.5 g into the vein every 24 (twenty-four) hour s [facility] Encounter for long-term (current) use of antibiotics Discitis of lumbar region Epidural abscess Normal Saline Flush 0.9 % Intravenous Solution [id number] 06/16/2019 12:00:00 AM EST 10 mL Intravenous aborted Encounte r for long-term (current) use of antibioticsDiscitis of lumbar regionEpidural abscess I nject 10 mLs into the vein as needed (For before and after infusion and prn) [facility] Encounter for long-term (current) use of antibiotics Discitis of lumbar region Epidural abscess Tamsulosin hydrochloride 0.4 MG Oral Cap delphine Tamsulosin HCl 0.4 MG Oral Capsule (FLOMAX) Tamsulosin HCl 0.4 MG Oral Capsule (FLOMAX) 06/16/2019 12:00 :00 AM EST 0.4 mg Oral aborted Take 1 capsule b y mouth daily [facility] POLYETHYLENE GLYCOL 3350 142 MG/ML Oral Solution Polyethylene Glycol 3350 Oral Packet (MIRALAX) Polyethylene Glycol 3350 Oral Packet (MIRALAX) 019 12:00:00 AM EST 17 g Oral active Take 1 packet by mouth daily Please substitute bottle for packets, if packets are unavailable. [facility] Tamsulosin hydrochloride 0.4 MG Oral Cap delphine Tamsulosin HCl 0.4 MG Oral Capsule (FLOMAX) Tamsulosin HCl 0.4 MG Oral Capsule (FLOMAX) 06/16/2019 12:00 :00 AM EST 0.4 mg Oral active Take 1 capsule b y mouth daily [facility] Ferrous Sulfate 325 (65 Fe) MG Ferrous Sulfate 06/16/2019 12:00:00 AM EST completed [facility]SMART ([facility]) Losartan Potassium 100 MG Losartan Potassium 06/16/2019 12:00:00 AM EST completed [facility]SMART ([facility]) Tamsulosin HCl 0.4 MG Tamsulosin HCl 06/16/2019 12:00:00 AM EST completed [facility] ([facility]) Omeprazole 20 MG Omeprazole 06/16/2019 12:00:00 AM EST completed NETSMART ([facility] ) Pravastatin Sodium 20 MG Pravastatin Sodium 06/16/2019 12:00:00 AM EST completed NETSMART ([facility]) POLYETHYLENE GLYCOL 3350 142 MG/ML Oral Solution Polyethylene Glycol 3350 Oral Packet (MIRALAX) Polyethylene Glycol 3350 Oral Packet (MIRALAX) 019 12:00:00 AM EST 17 g Oral aborted Take 1 packet by mouth daily Please substitute bottle for packets, if packets are unavailable. [facility] Heparin Lock Flush 100 UNIT/ML Heparin Lock Flush 06/16/2019 12:00: 00 AM EST 5.0 {ml} completed NETSMART ([facility]) CefTRIAXone Sodium 2 GM CefTRIAXone Sodium 06/16/2019 12:00:00 AM EST completed [facility]SM[facility] ([facility]) Normal Saline Flush 0.9 % Normal Saline Flush 06/16/2019 12:00:00 A M EST 10.0 {ml} completed [facility]SMART ([facility]) Vancomycin HCl 1.5 GM Vancomycin HCl 06/16/2019 12:00:00 AM EST completed [facility]SMART ([facility]) Acetaminophen 325 MG Oral Tablet Acetaminophen 325 MG Oral T ablet 06/15/2019 12:00:00 AM EST 975 mg Oral active Take 3 tablets by mouth every 8 (eight) hours [facility] sennosides, SNF 8.6 MG Oral Tablet Senna 8.6 MG Oral T ablet Senna 8.6 MG Oral Tablet 06/15/2019 12:00:00 AM EST 2 {tbl} Oral aborted Take 2 tablets by mouth nightly [facility] Ceftriaxone 2000 MG Injection cefTRIAXone (ROCEPHIN) i nfusion 2 g cefTRIAXone (ROCEPHIN) infusion 2 g 06/15/2019 12:00:00 AM EST 2 g Intraveno us completed Inject 2 g into the vein every 2 4 (twenty-four) hours [facility] Vancomycin HCl 1500 MG/300ML Intravenous Solution (VANCOCIN) [id number] 06/15/2019 12:00:00 AM EST 1500 mg Intravenous aborted Inject 300 mLs into the vein every 24 (twenty-four) hours [facility] ferrous sulfate 325 MG Oral Tablet Ferrous Sulfate 325 (65 Fe) MG Oral Tablet Ferrous Sulfate 325 (65 Fe) MG Oral Tablet 06/15/2019 12:00:00 AM EST 325 mg Oral active Take 1 tablet by zaira th daily with [facility] sennosides, SNF 8.6 MG Oral Tablet Senna 8.6 MG Oral T ablet Senna 8.6 MG Oral Tablet 06/15/2019 12:00:00 AM EST 2 {tbl} Oral aborted Take 2 tablets by mouth nightly [facility] sennosides, SNF 8.6 MG Oral Tablet Senna 8.6 MG Oral T ablet Senna 8.6 MG Oral Tablet 06/15/2019 12:00:00 AM EST 2 {tbl} [facility] MG Oral Tablet Ferrous Sulfate 325 (65 Fe) MG Oral Tablet Ferrous Sulfate 325 (65 Fe) MG Oral Tablet 06/15/2019 12:00:00 AM EST 325 mg Oral aborted Take 1 tablet by zaira daily with [facility] ferrous sulfate 325 MG Oral Tablet Ferrous Sulfate 325 (65 Fe) MG Oral Tablet Ferrous Sulfate 325 (65 Fe) MG Oral Tablet 06/15/2019 12:00:00 AM EST 325 mg Oral aborted Take 1 tablet by zaira daily with [facility] ferrous sulfate 325 MG Oral Tablet Ferrous Sulfate 325 (65 Fe) MG Oral Tablet Ferrous Sulfate 325 (65 Fe) MG Oral Tablet 06/15/2019 12:00:00 AM EST 325 mg Oral aborted Take 1 tablet by zaira daily with [facility] influenza vac split quad (FLUARIX) injection 6 months and ol tatyana 0.5 mL [id number] 06/14/2019 07:11:50 PM EST 0.5 mL Intramuscular complet ed 0.5 mL, Intramuscular, Give Now, Starting Wed06/14/19 at 1911, For 1 dose [facility] Medication administered onsite sodium phosphate 6 mmol/100 mL IVPB 06/14/2019 12:00:00 PM EST 6 mmol Intravenous completed 6 mmol, Intra venous, at 50 mL/hr, Every 2 hours, First dose (after last reorder) on Wed06/14/19 at 1200, For 2 doses
Slower infusion rate (e.g. over 4 to 6 hours) are recommended in patients with renal impairment and/or less severe hypophosphatemia.
[facility] Medication administered onsite magnesium sulfate in dextrose 5 % infusion (premix) 8 mEq [id number] 06/14/2019 11:00:00 AM EST 8 meq Intravenous completed 8 mEq, Intravenous, Administer over 60 Minutes, Every 1 hour, First dose on Wed06/14/19 at 1100, For 2 doses
each 8 mEq equivalent to 1 gm
[facility] Medication administered onsite Tamsulosin hydrochloride 0.4 MG Oral Capsule tamsulosi n (FLOMAX) capsule 0.4 mg tamsulosin (FLOMAX) capsule 0.4 mg 06/14/2019 11:00:00 AM EST 0.4 mg Oral active 0.4 mg, Oral, Daily Standard, First dose on Wed06/14/19 at 1100, For 30 days
Swallow whole. Do not crush, chew or open.
[facility] Medication administered onsite Magnesium Oxide 400 MG Oral Tablet Magnesium Oxide (MA G-OX) tablet 400 mg Magnesium Oxide (MAG-OX) tablet 400 mg 06/14/2019 10:30:00 AM EST 4 00 mg Oral completed 400 mg, Oral, Once, Wed08/15/18 at 1030, For 1 dose [facility] Medication administered onsite potassium phosphate 155 [...] mEq), and potassium 45 mg (1.1 mEq)
[facility] Medication administered onsite Hydralazine Hydrochloride 20 [...] minutes.TO BE GIVEN ONLY IF S BP>170
[facility] Medication administered onsite sodium phosphate 6 mmol/100 mL IVPB 06/13/2019 12:00:00 PM EST 6 mmol Intravenous completed 6 mmol, Intra venous, at 50 mL/hr, Every 2 hours, First dose on Wed06/13/19 at 1200, For 2 doses
Slower infusion rate (e.g. over 4 to 6 hours) are recommended in patients with renal impairment and/or less severe hypophosphatemia.
[facility] Medication administered onsite Bisacodyl 10 MG Rectal Suppository bisacodyl (DULCOLAX ) suppository 10 mg bisacodyl (DULCOLAX) suppository 10 mg 06/13/2019 10:30:00 AM EST 10 mg Rectal completed 10 mg, Rectal, Once, Wed06/13/19 at 1030, For 1 dose [facility] Medication administered onsite Bisacodyl 10 MG Rectal Suppository bisacodyl (DULCOLAX ) suppository 10 mg bisacodyl (DULCOLAX) suppository 10 mg 06/13/2019 10:27:21 AM EST 10 mg Rectal active 10 mg, Rectal, Daily PRN, Constipation, Starting Wed06/13/19 at 1027, For 30 days [facility] Medication administered onsite sodium chloride (preservative [...] mL Heparin 10 units/mL to lock.Reference Policy [facility]-[address] Central Line Policy.
[Order 2 End] [Order 3 Start] Name: sodium chloride (preservative free) 0.9 % flush 10 mL Signed Summary: 10 mL, Intravenous, Every 12 hours, First dose on Wed06/13/19 at 1030, For 30 days
WHEN NOT IN USE - Verify blood return before use. Flush with 10 mL of Sodium Chloride 0.9 % and 2 mL Heparin 10 units/mL.Reference Policy [address] Central Line Policy.
[Order 3 End] [Order 4 Start] Name: heparin lock flush 10 UNIT/ML injection 20 Units Signed Summary: 20 Units, Intravenous, Every 12 hours, First dose on Wed06/13/19 at 1030, For 30 days
WHEN NOT IN USE - Verify blood return before use. Flush with 10 mL of Sodium Chloride 0.9 % and 2 mL Heparin 10 units/mL.Reference Policy [address] Central Line Policy.
[Order 4 End] [facility] Medication administered onsite lidocaine (XYLOCAINE) 1 % injection 5 mL [id number] 06/13/2019 10:26:31 AM EST 5 mL Subcutaneous active 5 m L, Subcutaneous, Once PRN, for PICC insertion, Starting Wed06/13/19 at 1026, For 30 days [facility] Medication administered onsite Ceftriaxone 2000 MG Injection cefTRIAXone (ROCEPHIN) I VPB (premix) 2 g cefTRIAXone (ROCEPHIN) IVPB (premix) 2 g 06/12/2019 06:30:00 PM EST 2 g Intravenous active 2 g, Intraven ous, at 100 mL/hr, Every 24 hours, First dose on Wed06/12/19 at 1830, For 7 days
Discouraged Uses: Empiric treatment of post-surgical meningitis (ceftazidime preferred)
[facility] Medication administered onsite Losartan Potassium 50 MG Oral Tablet losartan (COZAAR) tablet 50 mg losartan (COZAAR) tablet 50 mg 06/12/2019 11:15:00 AM EST 50 mg Oral active 50 mg, Oral, Daily Standard, First dose on Wed06/12/19 at 1115, For 30 days
Check vital signs before administering
[facility] Medication administered onsite Insulin Glargine 100 [...] glucose more than 400 mg/dL: notify provider
[facility] Medication administered onsite magnesium sulfate in dextrose 5 % infusion (premix) 8 mEq 04 09-6727-23 06/12/2019 09:00:00 AM EST 8 meq Intravenous completed 8 mEq, Intravenous, Administer over 60 Minutes, Every 1 hour, First dose on Wed06/12/19 at 0900, For 3 doses
each 8 mEq equivalent to 1 gm
[facility] Medication administered onsite 0.4 ML Enoxaparin sodium 100 MG/ML Prefi lled Syringe enoxaparin sodium (LOVENOX) injection 40 mg enoxaparin sodium (LOVENOX) injection 40 mg 06/12/2019 09:00:00 AM EST 40 mg Subcutaneous active 40 mg, Subcutaneous, Daily Standard, First dose on Wed06/12/19 at 0900, For 30 days [facility] Medication administered onsite POLYETHYLENE GLYCOL 3350 [...] due to potential increased risk for aspiration.
[facility] Medication administered onsite Hydralazine Hydrochloride 20 [...] minutes.TO BE GIVEN ONLY IF S BP>170
[facility] Medication administered onsite sennosides, SNF 8.6 MG Oral Tablet senna 8.6 MG 2 tablet sen na 8.6 MG 2 tablet 06/11/2019 10:00:00 PM EST 2 {tbl} Oral active 2 tablet, Oral, Nightly, First dose on 06/11/19 at 2200, For 30 days [facility] Medication administered onsite Insulin Lispro 100 [...] Summary or Summary Report within the ED.
[facility] Medication administered onsite Glucose 0.4 MG/MG Oral Gel glucose (GLUTOSE) 40 % oral gel 15 g glucose (GLUTOSE) 40 % oral gel 15 g 06/11/2019 02:11:29 PM EST 15 g Oral active 15 g, Oral, PRN, Low blood s ugar, for gluose 55-69 mg/dl and able to take PO, Starting Wed06/11/19 at 1411, For 30 days [facility] Medication administered onsite vancomycin (VANCOCIN) infusion 1,500 mg/300 mL (premix) [id number] 06/11/2019 09:08:45 AM EST 1500 mg Intravenous active 1,500 mg, Intravenous, Administer over 90 Minutes, Every 24 hours, First dose (after last modification) on 06/11/19 at 0915, For 7 doses [facility] Medication administered onsite Piperacillin 3000 MG / tazobactam 375 MG Injection piperacillin-tazobactam (ZOSYN) IVPB 3.375 g (premix) piperacillin-tazobactam (ZOSYN) IVPB 3.3 75 g (premix) 06/11/2019 09:00:00 AM EST 3.375 g Intravenous abo rted 3.375 g, Intravenous, Administer over 4 Hours, Every 8 hours Standard (3 times per day), First dose on 06/11/19 at 0900, For 3 days [facility] Medication administered onsite Acetaminophen 325 MG Oral Tablet acetaminophen (TYLENO L) tablet 975 mg acetaminophen (TYLENOL) tablet 975 mg 06/11/2019 08:15:00 AM EST 97 5 mg Oral active 975 mg, Oral, E very 8 hours, First dose on 06/11/19 at 0815, For 30 days
Maximum daily dose of acetaminophen is 3,000 mg from all sources in 24 hours.
[facility] Medication administered onsite Insulin Lispro 100 [...] Summary or Summary Report within the ED.
[facility] Medication administered onsite Hydralazine Hydrochloride 20 MG/ML Injec table Solution hydrALAZINE (APRESOLINE) injection 10 mg hydrALAZINE (APRESOLINE) injection 10 mg 06/10/2019 11 :22:39 PM EST 10 mg Intravenous aborted 10 m g, Intravenous, Every 6 hours PRN, Other, Starting 06/10/19 at 2322, For 1 day
Dilute in 25-50 ml normal saline. Administer over 30 minutes.TO BE GIVEN ONLY IF SBP>170
[facility] Medication administered onsite dextrose 50 % IV solution 25 mL [id number] 06/10/2019 11:20:[address] 25 mL Intravenous active 25 mL, Intrav enous, PRN, Other, blood glucose <55, Starting 06/10/19 at 2320, For 30 days
Not for midline administration.
[facility] Medication administered onsite Glucagon 1 MG Injection glucagon (human recombinant) ( GLUCAGEN) injection 1 mg glucagon (human recombinant) (GLUCAGEN) injection 1 mg 06/10/2019 11:20:42 PM EST 1 mg Intramuscular active 1 mg, Intramuscular, PRN, for glucose <55 without IV access, Starting 06/10/19 at 2320, For 30 days [facility] Medication administered onsite Glucose 0.4 MG/MG Oral Gel glucose (GLUTOSE) 40 % oral gel 15 g glucose (GLUTOSE) 40 % oral gel 15 g 06/10/2019 11:20:42 PM EST 15 g Oral active 15 g, Oral, PRN, Low blood s ugar, for gluose 55-69 mg/dl and able to take PO, Starting 06/10/19 at 2320, For 30 days [facility] Medication administered onsite Acetaminophen 325 MG [...] mg from all sources in 24 hours.
[facility] Medication administered onsite tramadol hydrochloride 50 MG Oral Tablet traMADol HCl 50 MG Oral Tablet (ULTRAM) traMADol HCl 50 MG Oral Tablet (ULTRAM) 50 mg Oral aborted Take 50 mg by mouth every 6 (six) hours as needed for Pain [facility] Acetaminophen 325 MG Oral Tablet Acetaminophen 325 MG Oral Tablet 650 mg Oral aborted Take 650 mg by mouth every 6 (six) hours as needed for Pain [facility] meloxicam 15 MG Oral Tablet Meloxicam 15 MG Oral Table t (MOBIC) Meloxicam 15 MG Oral Tablet (MOBIC) 15 mg Oral aborted Take 15 mg by mouth daily [facility] Pravastatin Sodium 20 MG Oral Tablet Pra vastatin Sodium 20 MG Oral Tablet (PRAVACHOL) Pravastatin Sodium 20 MG Oral Tablet (PRAVACHOL) 20 mg Oral aborted Take 20 mg by mouth daily [facility] Insurance Providers Payer name Policy type / Coverage type Policy ID Covered constitution party ID Covered constitution party's relationship to smith Policy Smith Plan Information MEDICARE BLUE PPO 306 [id number] SP [id number] MEDICARE BLUE PPO 306 [id number] SP [id number] EXCELLUS BCBS B [id number] S VYM MEDICARE [id number] SP [id number] EXCELLUS MEDICARE BLUE PPO G [id number] Self [id number] EXCELLUS BCBS MCR HMO [id number] S [id number] MEDICARE BLUE PPO 306 [id number] SP [id number] MEDICARE BLUE PPO 306 [id number] SP [id number] BLUE CROSS BLUE SHIELD MCR -OP [id number] 18 [id number] MEDICARE BLUE PPO 306 [id number] SP [id number] BLUE CROSS BLUE SHIELD -O/P [id number] 18 [id number] MEDICARE BLUE PPO 306 [id number] SP [id number] EXCELLUS BCBS B [id number] S VYM MEDICARE BLUE PPO 306 [id number] SP [id number] BCBS [place] PPO [id number] MEDICARE [id number] SP [id number] A [facility] [id number] Blue Shield MCR Advantage Commercial [id number] Self [id number] MVP (pr) Medigap Part B [id number] Family Dependent [id number] Blue Shield MCR Advantage Commercial [id number] Self [id number] Blue Shield MCR Advantage Commercial [id number] Self [id number] O UNAVAILABLE UNAVAILA BLE Problems, Conditions, and Diagnoses Code Display Name Description Problem Type Effective Dates Data Source(s) 81869561 Essential hypertension Essential hypertension Problem 01/15/2020 12:00:00 AM EDT MEDENT ([facility], ) 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 Problem 01/08/2020 12:00:00 AM EDT eCW1 ([facility]) [id number] Carotid artery stenosis Carotid artery stenosis Proble m 12/25/2019 12:00:00 AM EDT MEDENT ([facility], ) [id number] Ischemic stroke Ischemic stroke Problem 12/25/2019 12:0 0:00 AM EDT MEDENT ([facility], ) I48.92 Unspecified atrial flutter Unspecified atrial flutter Problem 11/25/2019 01:00:00 AM EDT NETSMART ([facility] ) 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1 Anemia in chronic kidney disease Anemia in chronic kid ольга disease Problem 11/25/2019 01:00:00 AM EDT NETSMART ([facility] ) E11.40 Type 2 diabetes mellitus with diabetic n europathy, unspecified Type 2 diabetes mellitus with diabetic neuropathy, unspecified Problem 11/25/2019 01:00:00 AM EDT NETSMART ([facility] ) M48.061 Spinal stenosis, lumbar region without n eurogenic claudication Spinal stenosis, lumbar region without neurogenic claudication Problem 11/25/2019 01:00:00 AM EDT NETSMART ([facility] ) 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, lumbar region Intervertebral disc disorders with radiculopathy, lumbar region Problem 11/25/2019 01:00:00 AM EDT NETSMART ([facility] ) M54.30 Sciatica, unspecified side Sciatica, unspecified side Problem 11/25/2019 01:00:00 AM EDT NETSMART ([facility] ) M19.90 Unspecified osteoarthritis, unspecified site Unspecified osteoarthritis, unspecified site Problem 11/25/2019 01:00:00 AM EDT NETSMART ([facility]) D50.9 Iron deficiency anemia, unspecified Iron deficie ncy anemia, unspecified Problem 11/25/2019 01:00:00 AM EDT NETSMART ([facility]) R33.8 Other retention of urine Other retention of urine Prob norberto 11/25/2019 01:00:00 AM EDT NETSMART ([facility] ) Z46.6 Encounter for fitting and adjustment of urinary device Encounter for fitting and adjustment of urinary device Problem 11/25/2019 01:00:00 AM EDT NETSMART ([facility]) Z91.81 History of falling History of falling Problem 0 01:00:00 AM EDT NETSMART ([facility]) 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 intermodal owner operator truck driver (cu rrent) use of insulin Problem 11/25/2019 01:00:00 AM EDT NETSMART ([facility]) Z79.01 intermodal owner operator truck driver (current) use of anticoagulant s FDC (current) use of anticoagulants Problem 11/25/2019 01:00:00 AM EDT NETSMART ([facility]) Z87.891 Personal history of nicotine dependence Personal history of nicotine dependence Problem 11/25/2019 01:00:00 AM EDT NETSMART ([facility]) 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 ebral infarction affecting right dominant side Problem 11/24/2019 01:00:00 AM EDT NET SMART ([facility]) R33.9 Urinary retention Urinary retention Problem 08/23/2019 12:00:00 AM EST eCW1 ([facility]) R33.9 Urinary retention Urinary retention Problem 08/23/2019 12:00:00 AM EST eCW1 ([facility]) Z46.6 Encounter for fitting and adjustment of urinary device Encounter for fitting and adjustment of urinary device Problem 08/10/2019 12:00:00 AM EST NETSMART ([facility]) R33.8 Other retention of urine Other retention of urine Prob norberto 08/10/2019 12:00:00 AM EST NETSMART ([facility] ) E11.40 Type 2 diabetes mellitus with diabetic n europathy, unspecified Type 2 diabetes mellitus with diabetic neuropathy, unspecified Problem 08/10/2019 12:00:00 AM EST NETSMART ([facility] ) 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, or unspecified chronic kidney disease Hypertensive chronic kidney disease with stage 1 through stage 4 chronic kidney disease, or unspecified chronic kidney disease Problem 08/10/2019 12:00:00 AM ES T NETSMART ([facility]) 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 Problem 06/16/2019 12:00:00 AM EST NETSMART ([facility]) 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 Problem 06/16/2019 12:00:00 AM EST NETSMART ([facility] ) N18.9 Chronic kidney disease, unspecified Chronic kidn ey disease, unspecified Problem 06/16/2019 12:00:00 AM EST NETSMART ([facility]) M19.90 Unspecified osteoarthritis, unspecified site Unspecified osteoarthritis, unspecified site Problem 06/16/2019 12:00:00 AM EST NETSMART ([facility]) Z91.81 History of falling History of falling Problem 9 12:00:00 AM EST NETSMART ([facility]) 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 FDC (cu rrent) use of insulin Problem 06/16/2019 12:00:00 AM EST NETSMART ([facility]) R33.9 Retention of urine, unspecified Retention of urine, un specified Problem 06/16/2019 12:00:00 AM EST NETSMART ([facility] ) Z51.81 Encounter for therapeutic drug level mon itoring Encounter for therapeutic drug level monitoring Problem 06/16/2019 12:00:00 AM [facility] Z79.2 intermodal owner operator truck driver (current) use of antibiotics L robert term (current) use of antibiotics Problem 06/16/2019 12:00:00 AM EST NETSMART ([facility]) M46.46 Discitis, unspecified, lumbar region Dis citis, unspecified, lumbar region Problem 06/16/2019 12:00:00 AM EST NETSMART ([facility]) M46.46 Discitis, unspecified, lumbar region Dis citis, unspecified, lumbar region Problem 06/14/2019 12:00:00 AM EST NETSMART ([facility]) M4646 Discitis, unspecified, lumbar region Discitis, u nspecified, lumbar region Diagnosis 07/18/2019 01:14:00 PM [facility] 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 [place] I10 Essential (primary) hypertension Essential (primary) h ypertension Diagnosis 06/13/2019 09:07:[address] [facility] [place] Surgeries/Procedures Procedure Description Date Indications Data Source(s) Medication: Lidocaine HCl 2% Jelly 5mL Intravesically 08/05/2020 12:00:00 AM EST eCW1 ([facility]) Medication: Lidocaine HCl 2% Jelly 5mL Intravesically 07/16/2020 12:00:00 AM EST eCW1 ([facility]) BLDR IRRIGATION SMPL LAVAGE&/INSTLJ 06/27/2020 12:00:0 0 AM EST eCW1 ([facility]) Medication: Lidocaine HCl 2% Jelly 5mL Intravesically 06/20/2020 12:00:00 AM EST eCW1 ([facility]) Medication: Lidocaine HCl 2% Jelly 5mL Intravesically 05/20/2020 12:00:00 AM EST eCW1 ([facility]) Burt Catheter Insertion 20F 04/05/2020 12:00:00 AM ED T eCW1 ([facility]) Medication: Lidocaine HCl 2% Jelly 5mL Intravesically 03/26/2020 12:00:00 AM EDT eCW1 ([facility]) TSTG ANS FUNCJ CARDIOVAGAL INNERVAJ PARASYMP 0 12:00:00 AM EDT MEDENT ([facility], ) TSTG ANS FUNCJ CARDIOVAGAL INNERVAJ PARASYMP 0 12:00:00 AM EDT MEDENT ([facility], ) TESTING AUTONOMIC NERVOUS SYSTEM FUNCTION 01/26/2020 1 2:00:00 AM EDT MEDENT ([facility], ) TESTING AUTONOMIC NERVOUS SYSTEM FUNCTION 01/26/2020 1 2:00:00 AM EDT MEDENT ([facility], ) NON-INVASIVE PHYSIOLOGIC STUDY EXTREMITY 3 LEVLS 01/25 12:00:00 AM EDT MEDENT ([facility], ) Burt Catheter Coude Insertion 20F 01/09/2020 12:00:00 AM EDT eCW1 ([facility]) Magnetic Resonance Angiogtaphy Head W/O Contrast Material(S) 01/01/2020 12:00:00 AM EDT MEDENT ([facility] ) Magnetic Resonance Angiogtaphy Head W/O Contrast Material(S) 01/01/2020 12:00:00 AM EDT MEDENT ([facility] ) Magnetic Resonance Angiography Neck W/O And Then With Contra st ML 01/01/2020 12:00:00 AM EDT MEDENT ([facility]) Magnetic Resonance Angiography Neck W/O And Then With Contra st ML 01/01/2020 12:00:00 AM EDT MEDENT ([facility]) Office Visit, Est Pt., Level 3 FC 11/16/2019 12:00:00 AM EDT eCW1 ([facility]) Office Visit, Est Pt., Level 3 PC 11/16/2019 12:00:00 AM EDT eCW1 ([facility]) INSERT BLADDER CATH, COMPLEX 11/16/2019 12:00:00 AM ED T eCW1 ([facility]) Office Visit, New Pt., Level 2 FC 08/23/2019 12:00:00 AM EST eCW1 ([facility]) Office Visit, New Pt., Level 3 PC 08/23/2019 12:00:00 AM EST eCW1 ([facility]) POCT GLUCOSE, DOCKED POCT GLUCOSE, DOCKED Routine 06/15/2019 11:39 AM EST 06/15/2019 04:39:[address] [facility] [place] IRON BINDING CAPACITY TOTAL FE BINDING CAPACITY STAT 9 9:31 AM EST 06/15/2019 02:31:00 PM [facility] BLOOD COUNT COMPLETE AUTOMATED CBC STAT 06/15/2019 9:31 A M EST 06/15/2019 02:31:[address] [facility] [place] FERRITIN FERRITIN LEVEL STAT 06/15/2019 9:31 AM EST 06/15/2019 02:31:[address] [facility] [place] DRUG SCREEN QUALITATIVE VANCOMYCIN VANCOMYCIN, TROUGH Routine 06/15/2019 9:31 AM EST 06/15/2019 02:31:00 PM [facility] POCT GLUCOSE, DOCKED POCT GLUCOSE, DOCKED Routine 06/15/2019 7:51 AM EST 06/15/2019 12:51:[address] [facility] [place] BLOOD COUNT COMPLETE AUTO&AUTO DIFRNTL WBC COUNT CBC AND DIFFER ENTIAL Routine 06/15/2019 3:15 AM EST 06/15/2019 08:15:[address] [facility] [place] PHOSPHORUS INORGANIC PHOSPHORUS LEVEL Routine 06/15/2019 3:[address] 06/15/2019 08:15:[address] [facility] [place] MAGNESIUM MAGNESIUM LEVEL Routine 06/15/2019 3:15 AM EST 06/15/2019 08:15:[address] [facility] [place] BASIC METABOLIC PANEL CALCIUM TOTAL BASIC METABOLIC PANEL Routi ne 06/15/2019 3:15 AM EST 06/15/2019 08:15:00 AM [facility] GLUCOSE QUANTITATIVE BLOOD XCPT REAGENT STRIP POCT GLUCOSE, DOC KED Routine 06/14/2019 8:36 PM EST 06/15/2019 01:36:[address] [facility] [place] GLUCOSE QUANTITATIVE BLOOD XCPT REAGENT STRIP POCT GLUCOSE, DOC KED Routine 06/14/2019 4:25 PM EST 06/14/2019 09:25:[address] [facility] [place] GLUCOSE QUANTITATIVE BLOOD XCPT REAGENT STRIP POCT GLUCOSE, DOC KED Routine 06/14/2019 11:42 AM EST 06/14/2019 04:42:[address] [facility] [place] BLOOD COUNT COMPLETE AUTOMATED CBC Routine 06/14/2019 8:28 A M EST 06/14/2019 01:28:[address] [facility] [place] PHOSPHORUS INORGANIC PHOSPHORUS LEVEL Routine 06/14/2019 8:[address] 06/14/2019 01:28:[address] [facility] [place] MAGNESIUM MAGNESIUM LEVEL Routine 06/14/2019 8:28 AM EST 06/14/2019 01:28:[address] [facility] [place] BASIC METABOLIC PANEL CALCIUM TOTAL BASIC METABOLIC PANEL Routi ne 06/14/2019 8:28 AM EST 06/14/2019 01:28:00 PM [facility] GLUCOSE QUANTITATIVE BLOOD XCPT REAGENT STRIP POCT GLUCOSE, DOC KED Routine 06/14/2019 7:58 AM EST 06/14/2019 12:58:[address] [facility] [place] GLUCOSE QUANTITATIVE BLOOD XCPT REAGENT STRIP POCT GLUCOSE, DOC KED Routine 06/13/2019 9:04 PM EST 06/14/2019 02:04:[address] [facility] [place] GLUCOSE QUANTITATIVE BLOOD XCPT REAGENT STRIP POCT GLUCOSE, DOC KED Routine 06/13/2019 4:28 PM EST 06/13/2019 09:28:[address] [facility] [place] PICC ULTRASOUND - BEDSIDE PROCEDURE PICC ULTRASOUND - BEDSI DE PROCEDURE Routine 06/13/2019 2:41 PM EST 06/13/2019 07:41:[address] [facility] [place] GLUCOSE QUANTITATIVE BLOOD XCPT REAGENT STRIP POCT GLUCOSE, DOC KED Routine 06/13/2019 11:48 AM EST 06/13/2019 04:48:[address] [facility] [place] BLOOD COUNT COMPLETE AUTO&AUTO DIFRNTL WBC COUNT CBC AND DIFFER ENTIAL Routine 06/13/2019 9:32 AM EST 06/13/2019 02:32:[address] [facility] [place] PHOSPHORUS INORGANIC PHOSPHORUS LEVEL Routine 06/13/2019 9:[address] 06/13/2019 02:32:[address] [facility] [place] MAGNESIUM MAGNESIUM LEVEL Routine 06/13/2019 9:32 AM EST 06/13/2019 02:32:[address] [facility] [place] BASIC METABOLIC PANEL CALCIUM TOTAL BASIC METABOLIC PANEL Routi ne 06/13/2019 9:32 AM EST 06/13/2019 02:32:00 PM [facility] GLUCOSE QUANTITATIVE BLOOD XCPT REAGENT STRIP POCT GLUCOSE, DOC KED Routine 06/13/2019 7:19 AM EST 06/13/2019 12:19:[address] [facility] [place] GLUCOSE QUANTITATIVE BLOOD XCPT REAGENT STRIP POCT GLUCOSE, DOC KED Routine 06/12/2019 9:55 PM EST 06/13/2019 02:55:[address] [facility] [place] GLUCOSE QUANTITATIVE BLOOD XCPT REAGENT STRIP POCT GLUCOSE, DOC KED Routine 06/12/2019 4:31 PM EST 06/12/2019 09:31:[address] [facility] [place] RADEX SPINE LUMBOSACRAL 2/3 VIEWS XR SPINE LUMBAR 2-3 VIEWS 721 00 Routine 06/12/2019 3:41 PM EST 06/12/2019 08:41:[address] [facility] [place] GLUCOSE QUANTITATIVE BLOOD XCPT REAGENT STRIP POCT GLUCOSE, DOC KED Routine 06/12/2019 11:27 AM EST 06/12/2019 04:27:[address] [facility] [place] CUL PRSMPTV PTHGNC ORGANISM SCRN W/COLONY ESTIMJ MRSA CULTURE Routine 06/12/2019 11:25 AM EST 06/12/2019 04:25:[address] [facility] [place] GLUCOSE QUANTITATIVE BLOOD XCPT REAGENT STRIP POCT GLUCOSE, DOC KED Routine 06/12/2019 7:30 AM EST 06/12/2019 12:30:[address] [facility] [place] BLOOD COUNT COMPLETE AUTO&AUTO DIFRNTL WBC COUNT CBC AND DIFFER ENTIAL Routine 06/12/2019 3:21 AM EST 06/12/2019 08:21:[address] [facility] [place] PHOSPHORUS INORGANIC PHOSPHORUS LEVEL Routine 06/12/2019 3:[address] 06/12/2019 08:21:[address] [facility] [place] MAGNESIUM MAGNESIUM LEVEL Routine 06/12/2019 3:21 AM EST 06/12/2019 08:21:[address] [facility] [place] COMPREHENSIVE METABOLIC PANEL COMPREHENSIVE METABOLIC PANEL Rou joni 06/12/2019 3:21 AM EST 06/12/2019 08:21:00 AM [facility] GLUCOSE QUANTITATIVE BLOOD XCPT REAGENT STRIP POCT GLUCOSE, DOC KED Routine 06/11/2019 9:34 PM EST 06/12/2019 02:34:[address] [facility] [place] GLUCOSE QUANTITATIVE BLOOD XCPT REAGENT STRIP POCT GLUCOSE, DOC KED Routine 06/11/2019 4:33 PM EST 06/11/2019 09:33:[address] [facility] [place] GLUCOSE QUANTITATIVE BLOOD XCPT REAGENT STRIP POCT GLUCOSE, DOC KED Routine 06/11/2019 11:10 AM EST 06/11/2019 04:10:[address] [facility] [place] GLUCOSE QUANTITATIVE BLOOD XCPT REAGENT STRIP POCT GLUCOSE, DOC KERhona Routine 06/11/2019 7:31 AM EST 06/11/2019 12:31:[address] [facility] [place] RADEX SPINE LUMBOSACRAL 2/3 VIEWS XR SPINE L-S 2-3 VIEWS [place] [id number] Routine 06/11/2019 6:52 AM EST Discitis of lumbar region 06/11/2019 11:52:35 AM EST Disciti s of lumbar region [facility] Discitis of lumbar region CUL BACT XCPT URINE BLOOD/STOOL AEROBIC ISOL WOUND CULTURE Ro utine 06/11/2019 4:06 AM EST 06/11/2019 09:06:00 AM [facility] CUL BACT XCPT URINE BLOOD/STOOL AEROBIC ISOL WOUND CULTURE Ro utine 06/11/2019 4:06 AM EST 06/11/2019 09:06:00 AM [facility] DEBRIDEMENT; SKIN, SUBQ TISSUE, MUSCLE, & BONE <td><co ntent ID="[id number]">DEBRIDEMENT; SKIN, SUBQ TISSUE, MUSCLE, & BONE</content></td><td></td><td>06/11/2019 3:27 AM EST</td><td><paragraph> Lumbar epidural abscess, L2/L3 discitis</paragraph></td><td></td> 06/11/2019 08:27:00 AM EST - 06/11/2019 12:32:00 PM EST [facility] CONFIRMATORY TYPE CONFIRMATORY TYPE Routine 06/11/2019 3:17 AM EST 06/11/2019 08:17:[address] [facility] [place] GLUCOSE QUANTITATIVE BLOOD XCPT REAGENT STRIP POCT GLUCOSE, DOC KED Routine 06/11/2019 3:11 AM EST 06/11/2019 08:11:[address] [facility] [place] LACTATE LACTIC ACID LEVEL, PLASMA Routine 06/11/2019 2:30 AM EST 06/11/2019 07:30:[address] [facility] [place] Results ID Date Data Source [id number] 03/24/2020 07:15:41 AM EDT [facility] Name Value Range Interpretation Code Description Data Tania rce(s) Supporting Document(s) Progress Note [employer] OLUILc1sGqHAVeAt51/YBWkcEKBwb1NkRScjHOd7DAsaMLBwY7DzLHI5qH9vRVH0IYbPLgQtCtRwMVI6 lbm [file] 3Er2mqNZ0Z76EG8rkA8FY2X0iSo9VuR34Tk7z/Ga1z10cqyVxlX/nn+[place]+AmC8EIgKjAZ+r92HYZ8Y [file] OfXsNLI2KJBuX5JeCAGtPDNcUQ5yBUZUEt7+TQuwcZJzpIibWGTTJbE7RnQ2AJyqMTPGEg1L ID Date Data Source [id number] 03/16/2020 09:30:46 AM EDT [facility] XR SPINE LUMBAR 4-MORE VIEWS [id number] RESULTInterpreted by:DOTTY Moya SPINECLINICAL STATEMENT: Low back pain.TECHNIQUE: AP, lateral, [...] rce(s) Supporting Document(s) ID Date Data Source [id number] 09/25/2019 04:13:27 PM EDT [facility] XR SPINE LUMBAR 4-MORE VIEWS [id number] RESULTInterpreted by:Leonard Nolberto [place], MDLumbar spine 4 viewsINDICATION: Lumbar painCOMPARISON: Thoracic and [...] discitis.This document has been electronically signed by Kenyon Schultz MD on 09/25/2019 4:11 PM Name Value Range Interpretation Code Description Data Tania rce(s) Supporting Document(s) ID Date Data Source [id number] 09/24/2019 11:36:26 AM EDT [facility] Name Value Range Interpretation Code Description Data Tania rce(s) Supporting Document(s) Progress Note [employer] RWZKTl5cWkFQEwTb33/USUxfBGWqn5FgBZmbEZt8EIyjNXIxU2JqQOK6fZ5jCUS3ZVoXBaUlUtEcRfR6 lbm [file] P4icMySBr0ShD8Tk2SYADWT8QRQu== ID Date Data Source [id number] 08/04/2019 03:18:58 PM [facility] XR SPINE-ENTIRE THORACIC AND LUMBAR- 2 O R 3 VIEW [id number] RESULTInterpreted by:LISA RoblesAM: Entire thoracic and lumbar spine, 2-3 views: [...] rce(s) Supporting Document(s) ID Date Data Source [id number] 07/30/2019 07:47:45 AM EST [facility] Name Value Range Interpretation Code Description Data Tania rce(s) Supporting Document(s) Progress Note [employer] ARVFSn3lMaPXPbRs41/AXNraLYMng3MmIQrkRYj7DJhtLWMdH4DkYPY6fR4sRYQ6LUqXMaAcNxAzYeNx lbm [file] H+R/Lvhy+Cárdenas/50cfe3FA2ROt/2D3jzlG38+qzGLaWMiQ6RA8tAyhkHPmwAE9SGdh75Jt2QM4xP5AfOf [file] yGVLVrZjrEIs6MkEbcEQ99XJbc8jUK4/WM7oLT+c0VsK8/QWA/Matt+j/kOeclALL937vmg6hsw85I+[employer] [file] EaK5L6NcLhIcNcZA5UTa0XMiV2QFJ1zRPhJi9UYFD1PgROZlAbJU7KUUo= ID Date Data Source [id number] 07/24/2019 12:01:52 PM [facility] Name Value Range Interpretation Code Description Data Tania rce(s) Supporting Document(s) Progress Note [employer] TEISVp9cSmWFVmWv87/CUXorGHNli0YzOMyrWWs4PHrcACDdE3XkRJN7kV3kHHP5GEaTGnKlBpMuUYH1 lbm [file] [id number]== ID Date Data Source [id number] 07/18/2019 02:50:00 PM [facility] Name Value Range Interpretation Code Description Data Tania rce(s) Supporting Document(s) Erythrocyte sedimentation rate by Westergren method 41 mm/hr 0 - 20 H [facility] SED RATE REENTER 41 [facility] ID Date Data Source [id number] 07/18/2019 02:31:00 PM [facility] Name Value Range Interpretation Code Description Data Tania rce(s) Supporting Document(s) COMPREHENSIVE METABOLIC PANEL [facility] COMPREHENSIVE METABOLIC PANEL Sodium [Moles/volume] in Serum or Plasma 140 mEq/L 134 - 153 [facility] Potassium [Moles/volume] in Serum or Plasma 4.8 mEq/L 3.6 - 5.0 [facility] Chloride [Moles/volume] in Serum or Plasma 103 mEq/L 98 - 107 [facility] Carbon dioxide, total [Moles/volume] in Serum or Plasma 25 MEQ/L 22 - 30 [facility] Glucose [Mass/volume] in Serum or Plasma 145 MG/DL 65 - 110 H [facility] BUN 23 MG/DL 7 - 21 H [facility] Creatinine [Mass/volume] in Serum or Plasma 0.9 MG/DL 0.7 - 1.5 [facility] BUN/CREAT 26 8 - 27 [facility] Protein [Mass/volume] in Serum or Plasma 6.7 G/DL 6.3 - 8.2 [facility] Albumin [Mass/volume] in Serum or Plasma 3.7 G/DL 3.9 - 5.0 L [facility] Globulin [Mass/volume] in Serum by calculation 3.0 GM/DL 2.4 - 3.2 [facility] A/G RATIO 1.2 0.8 - 2.0 [facility] Calcium [Mass/volume] in Serum or Plasma 9.3 MG/DL 8.4 - 10.2 [facility] Bilirubin.total [Mass/volume] in Serum or Plasma 0.7 MG/DL 0.2 - 1.3 [facility] Alkaline phosphatase [Enzymatic activity/volume] in Serum or Plasma 175 U/L 38 - 126 H [facility] Aspartate aminotransferase [Enzymatic activity/volume] in Serum or Plasma 17 U/L 5 - 40 [facility] Alanine aminotransferase [Enzymatic activity/volume] in Seru m or Plasma 16 U/L 7 - 56 [facility] Anion gap 3 in Serum or Plasma 12.0 mmol/L 8.0 - 16.0 [facility] AGE 84 yrs [facility] al NON-AA GFR >60 mL/min [facility] ital AFR AMER GFR >60 mL/min [facility] Ho spital Male GFR In terprentation 20-49 [...] >32 mL/min Normal ID Date Data Source [id number] 07/18/2019 02:22:00 PM [facility] Name Value Range Interpretation Code Description Data Tania rce(s) Supporting Document(s) CBC NO DIFF [facility] Hosp ital COMPLETE BLOOD COUNT Leukocytes [#/volume] in Blood by Automated count 7.9 10^3/uL 4.2 - 1 1.0 [facility] Erythrocytes [#/volume] in Blood by Automated count 3.22 10^6/uL 4. 50 - 6.30 L [facility] Hemoglobin [Mass/volume] in Blood 9.7 g/dL 14.0 - 16.0 L [facility] Hematocrit [Volume Fraction] of Blood by Automated count 31.3 % 4 1.0 - 51.0 L [facility] Erythrocyte mean corpuscular volume [Entitic volume] by Auto mated count 97.2 fL 80.0 - 94.0 H [facility] Erythrocyte mean corpuscular hemoglobin [Entitic mass] by Automated count 30.1 pg 27.0 - 34.0 [facility] Erythrocyte mean corpuscular hemoglobin concentration [Mass/volume] by Automated count 31.0 g/dL 31.0 - 36.0 [facility] Erythrocyte distribution width [Ratio] by Automated count 15.2 % 11.5 - 14.8 H [facility] Platelets [#/volume] in Blood by Automated count 319 10^3/uL 150 - 45 0 [facility] Platelet mean volume [Entitic volume] in Blood by Automated count 10.5 fL 7.4 - 10.4 H [facility] ID Date Data Source [id number] 07/10/2019 02:23:10 PM [facility] Name Value Range Interpretation Code Description Data Tania rce(s) Supporting Document(s) Progress Note [employer] NTKXVs2eJlKTUzHh99/WGNfrVLVlw6ViHArhPSw2RKwiVKIrA3MvEST8fN0qBAQ9NStGDeRcAgAcKRSd [facility] [file] 7e4eMB++yD1vI809e44vI+259JhsL04svaT/4H2vnP Af+BnrRjMPrDm84O+K7J6a4pXR5UYyM/VIiI2wKNHCNehorzjQroaW/5a/FZS2v+NRYaw1h9mYoP+Vup pBT8xyXFrw6RjdFdHo+Sp6E3V5SxKG+U+RBt7QmJQ0refVz78eMdBna15rb3rT/N1oqu5x0yO7D7q+38 N40PzN+4lisGoP6K/APt/RmKL9fzWh10aWw4vVAnYf BoAdMIgYRznX/q9AH5+zaXK5LVnUEJxWqswl1+a+kNV334sChGXyEQT+Dp3Ob6j1Jz5zp25F2uJRkaS1 eIWFz1kf7PgB+1v14Q5Sv6sf5A8ySrVyX386ZoleF+l3vIhscle81/D/Density Control Puncher+e/B/lR7j7hDflkP84Y+B [file] AgICAgICAgICAgICAgICAgICAgICAgICAgICAgICAgICAgICAgICAgICAgICAgICAgICAgICAgICAgIC AgICAgICAgICAgICAgICAgICAgICAgICAgICAgICAg ICAgDQogICAgICAgICAgICAgICAgICAgICAgICAgICAgICAgICAgICAgICAgICAgICAgICAgICAgICAg ICAgICAgICAgICAgICAgICAgICAgICAgICAgICAgICAgICAgICAgICAgICAgDQogICAgICAgICAgICAg ICAgICAgICAgICAgICAgICAgICAgICAgICAgICAgIC AgICAgICAgICAgICAgICAgICAgICAgICAgICAgICAgICAgICAgICAgICAgICAgICAgICAgICAgDQogIC AgICAgICAgICAgICAgICAgICAgICAgICAgICAgICAgICAgICAgICAgICAgICAgICAgICAgICAgICAgIC AgICAgICAgICAgICAgICAgICAgICAgICAgICAgICAg ICAgICAgDQogICAgICAgICAgICAgICAgICAgICAgICAgICAgICAgICAgICAgICAgICAgICAgICAgICAg ICAgICAgICAgICAgICAgICAgICAgICAgICAgICAgICAgICAgICAgICAgICAgICAgDQogICAgICAgICAg ICAgICAgICAgICAgICAgICAgICAgICAgICAgICAgIC AgICAgICAgICAgICAgICAgICAgICAgICAgICAgICAgICAgICAgICAgICAgICAgICAgICAgICAgICAgDQ ogICAgICAgICAgICAgICAgICAgICAgICAgICAgICAgICAgICAgICAgICAgICAgICAgICAgICAgICAgIC AgICAgICAgICAgICAgICAgICAgICAgICAgICAgICAg ICAgICAgICAgDQogICAgICAgICAgICAgICAgICAgICAgICAgICAgICAgICAgICAgICAgICAgICAgICAg ICAgICAgICAgICAgICAgICAgICAgICAgICAgICAgICAgICAgICAgICAgICAgICAgICAgDQogICAgICAg ICAgICAgICAgICAgICAgICAgICAgICAgICAgICAgIC AgICAgICAgICAgICAgICAgICAgICAgICAgICAgICAgICAgICAgICAgICAgICAgICAgICAgICAgICAgIC AgDQogICAgICAgICAgICAgICAgICAgICAgICAgICAgICAgICAgICAgICAgICAgICAgICAgICAgICAgIC AgICAgICAgICAgICAgICAgICAgICAgICAgICAgICAg TNWlGYLkIGDyBEBbUZh8N4lwVIKyINTbEJ6xSFd7Ad1+VDcQPlDjUHO7qiTiwY5CJH0ss7XhEEpyCCAv r3ZvKFc5RA5RYGGbYTbhNO0ARZoexk9ESUFnGEFxcUHUi1deKdUhCPK6QETfXnbbBK3ANCQpT0bjiyRv IDUgMCBSIDcgMCBSIDkgMCBSIDExIDAgUiBdDQogIC 3As6SzqQG2FLi+Ae2GHX2tl4JrUZiwErBwWW4den6DXXeTHuUqM1XcudB0DFN1KARfRv9XZZWzBQHpdU PgNJBgSOQUCaSvY9PpoI02ONOMGy9+ZVvapfKyAmhKPqJ6VCLrk4DjQAk5LK2BODBcLQv6qKRtULVpY8 Wpt7RpCs34UDOiCdttSm4nPQEsBI5oEzZFk14yl12y IPKSPRH4WETgNVGpXuIoLUPxVXylRXKZAAiUPdZfH4Bpe6ZiAlH1KXGkFoBdAXixINDzToS9VY56eVzc QL5ZKKVvLLHaST27MSZ3MNHlFa5YIo2WZiJfQI9eme5YPufxYEJdAhjFMyb9TPxlXY0IqVPzK7QkpKDn f2uXCbOtW6LBFUH8ICJhQi2NZHZvLoGeIZLsCNbxTJ 4zHTXuKUIUjFahvkM3QM7FUE5gbmGqSQ2RLyTzWp7dRp5JRaExF2TqU5IuHKKkKMPKBIxiNS0RPCjmTK 0sSH2Cb7DBbKFmpO5kim3EYWSoWXLsYmlxrp6UQjryF2W6oKyzSOCmDpytBLDHEGbjBT6XYNAgFMD3PY VgBiGzDTYVDdHrV07oVV8XJ6Zqh96bKmV6WPSbXgMj GOkeNF77fWqxvxVprQPneCtwBD4YUe6+DQplbmRvYmoNCnhyZWYNCjAgMzANCjAwMDAwMDAwMDAgNjU1 AhBbFa8YSRNoDINuRXYuFqGbXQCnQJZhDYotJUGiIYQeXTOqEYQdKALcYK6WBnRrYSDtNeB4VVHrLSNu IEObyz9THDPqPRDvQNQ8WfGaIXFbGFYmYSiqTBUwHF PgJAVzQBOmFTTwYS5INkChJBPyRHJ4OiCcDXCdJCTzzo6MPURoQIIkEmppXWUbOWPsLKOiICjgYSMwVP T1PJM2TFQoSDWjGW7CUvDrVDAjWIrnBhBfRIKwCFQmof8FLMZmXUHvILF0ENSpBJDkBLOoDNipIHSnLH CmPFW6BGKaNADlUN9UPwDhUARaZBS8YYZeTCXnKNGr ed6RVIVnQSGiEtN9EnWqACYnGXFkWPkoCDDyEULzTPhiLMSzSPPpOZ4ACgZyVGHfCKJcTXBjRNGmYNBz ve0OVMTpRWKgEEBdUeCtZABeXECeWDmeWZQdFGY5KqY9UBPrBZRrEC1PFhIwXTGvCHL9IKIaFBRoYOQr no7FLCUtSGFeKTrdNuFwAEUqJXFuFLcmBODmCKQ8NI T4JIZjCNUcIV3XDvKiZATwZcGlHuTcNUQtYYPzky1UPXNmTOPeOiLbIlKfQPLaQFVxEIszDURvENC3Cr BaZBLsEZRnJP8LQfViJMBeShF2XhitRQRhKNCncr1RQHKnOMAzTTNaSLQhJERiYONxFRpqHUNeTZLvQI NfZUHqVWGnVQ8WCrJlUZBbUkH9EHmvREZuYBBeal8V TJAwAEHtWnc4AOJmDDKrARXpORlpAERuVJWqKAHhTJVrLHZzTU5TIqCbSYveNRMJMwc2AMihS6n1PGUb TD5MV1Aoy2MzYetjFDXMKNxvMN6uleYsJEAcHs1ET7iSQxzmWNXhJVB4EZm0VKB5YXLoVFWyX1E6Z7Hq UELgPMYlSo9uOOOgU3Y2KKYyGwviWJSiJpLfGASpOY V4UMFxXONfHoM7FzQfZE0DUn6TSuV0LDT2wQLdEi4YSwBrPkKQUyXrHP5NUEe= ID Date Data Source [id number] 07/10/2019 12:23:00 PM [facility] Name Value Range Interpretation Code Description Data Tania rce(s) Supporting Document(s) Erythrocyte sedimentation rate by Westergren method 25 mm/hr 0 - 20 H [facility] SED RATE REENTER 25 [facility] ID Date Data Source [id number] 07/10/2019 12:07:00 PM [facility] Name Value Range Interpretation Code Description Data Tania rce(s) Supporting Document(s) C reactive protein [Mass/volume] in Serum or Plasma by High sensitivity method 11.53 MG/L 1.00 - 3.00 H [facility] CDC/S HS-CRP CUT-OFF: RELATIVE RISK: <1.0 mg/L Low 1.0 - 3.0 mg/L Average >3.0 mg/L High Optimally, the average of HS-CRP results repeated two weeks apart should be used for risk assessment. ID Date Data Source [id number] 07/10/2019 12:07:00 PM [facility] Name Value Range Interpretation Code Description Data Tania rce(s) Supporting Document(s) COMPREHENSIVE METABOLIC PANEL [facility] COMPREHENSIVE METABOLIC PANEL Sodium [Moles/volume] in Serum or Plasma 138 mEq/L 134 - 153 [facility] Potassium [Moles/volume] in Serum or Plasma 4.7 mEq/L 3.6 - 5.0 [facility] Chloride [Moles/volume] in Serum or Plasma 103 mEq/L 98 - 107 [facility] Carbon dioxide, total [Moles/volume] in Serum or Plasma 26 MEQ/L 22 - 30 [facility] Glucose [Mass/volume] in Serum or Plasma 183 MG/DL 65 - 110 [facility] BUN 17 MG/DL 7 - 21 [facility] Creatinine [Mass/volume] in Serum or Plasma 0.9 MG/DL 0.7 - 1.5 [facility] BUN/CREAT 19 8 - 27 [facility] al Protein [Mass/volume] in Serum or Plasma 6.3 G/DL 6.3 - 8.2 [facility] Albumin [Mass/volume] in Serum or Plasma 3.3 G/DL 3.9 - 5.0 L [facility] Globulin [Mass/volume] in Serum by calculation 3.0 GM/DL 2.4 - 3.2 [facility] A/G RATIO 1.1 0.8 - 2.0 [facility] Calcium [Mass/volume] in Serum or Plasma 9.0 MG/DL 8.4 - 10.2 [facility] Bilirubin.total [Mass/volume] in Serum or Plasma 0.7 MG/DL 0.2 - 1.3 [facility] Alkaline phosphatase [Enzymatic activity/volume] in Serum or Plasma 168 U/L 38 - 126 H [facility] Aspartate aminotransferase [Enzymatic activity/volume] in Serum or Plasma 15 U/L 5 - 40 [facility] Alanine aminotransferase [Enzymatic activity/volume] in Seru m or Plasma 15 U/L 7 - 56 [facility] Anion gap 3 in Serum or Plasma 9.0 mmol/L 8.0 - 16.0 [facility] AGE 84 yrs [facility] al NON-AA GFR >60 mL/min [facility] ital AFR AMER GFR >60 mL/min [facility] Ho spital Male GFR In terprentation 20-49 [...] >32 mL/min Normal ID Date Data Source [id number] 07/10/2019 11:56:00 AM EST [facility] Name Value Range Interpretation Code Description Data Tania rce(s) Supporting Document(s) CBC W/AUTOMATED DIFF [facility] COMPLETE BLOOD COUNT Leukocytes [#/volume] in Blood by Automated count 6.4 10^3/uL 4.2 - 1 1.0 [facility] Erythrocytes [#/volume] in Blood by Automated count 2.87 10^6/uL 4. 50 - 6.30 L [facility] Hemoglobin [Mass/volume] in Blood 8.7 g/dL 14.0 - 16.0 L [facility] Hematocrit [Volume Fraction] of Blood by Automated count 27.7 % 4 1.0 - 51.0 L [facility] Erythrocyte mean corpuscular volume [Entitic volume] by Auto mated count 96.5 fL 80.0 - 94.0 H [facility] Erythrocyte mean corpuscular hemoglobin [Entitic mass] by Automated count 30.3 pg 27.0 - 34.0 [facility] Erythrocyte mean corpuscular hemoglobin concentration [Mass/volume] by Automated count 31.4 g/dL 31.0 - 36.0 [facility] Erythrocyte distribution width [Ratio] by Automated count 15.2 % 11.5 - 14.8 H [facility] Platelets [#/volume] in Blood by Automated count 290 10^3/uL 150 - 45 0 [facility] Platelet mean volume [Entitic volume] in Blood by Automated count 10.0 fL 7.4 - 10.4 [facility] Neutrophils/100 leukocytes in Blood by Automated count 73.5 % 37. 0 - 80.0 [facility] Lymphocytes/100 leukocytes in Blood by Manual count 14.8 % 25.0 - 40.0 L [facility] Monocytes/100 leukocytes in Blood by Automated count 5.6 % 3.0 - 8.0 [facility] Eosinophils/100 leukocytes in Blood by Automated count 5.0 % 0.0 - 7.0 [facility] Basophils/100 leukocytes in Blood by Automated count 0.8 % 0.0 - 2.0 [facility] %IG 0.3 % 0.0 - 0.0 H [facility] al %NRBC 0.0 % 0.0 - 0.0 [facility] al Neutrophils [#/volume] in Blood by Automated count 4.71 10^3/uL 2.00 - 6.90 [facility] Lymphocytes [#/volume] in Blood by Automated count 0.95 10^3/uL 0.60 - 3.40 [facility] Monocytes [#/volume] in Blood by Automated count 0.36 10^3/uL 0.00 - 0.90 [facility] Eosinophils [#/volume] in Blood by Automated count 0.32 10^3/uL 0.00 - 0.70 [facility] Basophils [#/volume] in Blood by Automated count 0.05 10^3/uL 0.00 - 0.20 [facility] #IG 0.02 10^3/uL 0.00 - 0.10 [facility] H ospital #NRBC 0.00 10^3/uL 0.00 - 0.00 [facility] ospital MANUAL DIFF NOT INDICATED [facility] RBC MORPH NOT INDICATED [facility] Ho spital ID Date Data Source [id number] 07/03/2019 05:15:00 PM [facility] Name Value Range Interpretation Code Description Data Tania rce(s) Supporting Document(s) C reactive protein [Mass/volume] in Serum or Plasma by High sensitivity method 14.39 MG/L 1.00 - 3.00 H [facility]/S HS-CRP CUT-OFF: RELATIVE RISK: <1.0 mg/L Low 1.0 - 3.0 mg/L Average >3.0 mg/L High Optimally, the average of HS-CRP results repeated two weeks apart should be used for risk assessment. ID Date Data Source [id number] 07/03/2019 05:15:00 PM [facility] Name Value Range Interpretation Code Description Data Tania rce(s) Supporting Document(s) COMPREHENSIVE METABOLIC PANEL [facility] COMPREHENSIVE METABOLIC PANEL Sodium [Moles/volume] in Serum or Plasma 137 mEq/L 134 - 153 [facility] Potassium [Moles/volume] in Serum or Plasma 4.9 mEq/L 3.6 - 5.0 [facility] Chloride [Moles/volume] in Serum or Plasma 100 mEq/L 98 - 107 [facility] Carbon dioxide, total [Moles/volume] in Serum or Plasma 23 MEQ/L 22 - 30 [facility] Glucose [Mass/volume] in Serum or Plasma 149 MG/DL 65 - 110 H [facility] BUN 18 MG/DL 7 - 21 [facility] Creatinine [Mass/volume] in Serum or Plasma 0.9 MG/DL 0.7 - 1.5 [facility] BUN/CREAT 20 8 - 27 [facility] Protein [Mass/volume] in Serum or Plasma 6.3 G/DL 6.3 - 8.2 [facility] Albumin [Mass/volume] in Serum or Plasma 3.2 G/DL 3.9 - 5.0 L [facility] Globulin [Mass/volume] in Serum by calculation 3.1 GM/DL 2.4 - 3.2 [facility] A/G RATIO 1.0 0.8 - 2.0 [facility] Calcium [Mass/volume] in Serum or Plasma 8.8 MG/DL 8.4 - 10.2 [facility] Bilirubin.total [Mass/volume] in Serum or Plasma 0.7 MG/DL 0.2 - 1.3 [facility] Alkaline phosphatase [Enzymatic activity/volume] in Serum or Plasma 161 U/L 38 - 126 H [facility] Aspartate aminotransferase [Enzymatic activity/volume] in Serum or Plasma 18 U/L 5 - 40 [facility] Alanine aminotransferase [Enzymatic activity/volume] in Seru m or Plasma 15 U/L 7 - 56 [facility] Anion gap 3 in Serum or Plasma 14.0 mmol/L 8.0 - 16.0 [facility] AGE 84 yrs [facility] al NON-AA GFR >60 mL/min [facility] ital AFR AMER GFR >60 mL/min [facility] Ho spital Male GFR In terprentation 20-49 [...] >32 mL/min Normal ID Date Data Source [id number] 07/03/2019 05:04:00 PM [facility] Name Value Range Interpretation Code Description Data Tania rce(s) Supporting Document(s) Erythrocyte sedimentation rate by Westergren method 60 mm/hr 0 - 20 H [facility] SED RATE REENTER 60 [facility] ID Date Data Source [id number] 07/03/2019 04:46:00 PM [facility] Name Value Range Interpretation Code Description Data Tania rce(s) Supporting Document(s) CBC W/AUTOMATED DIFF [facility] COMPLETE BLOOD COUNT Leukocytes [#/volume] in Blood by Automated count 8.7 10^3/uL 4.2 - 1 1.0 [facility] Erythrocytes [#/volume] in Blood by Automated count 2.62 10^6/uL 4. 50 - 6.30 L [facility] Hemoglobin [Mass/volume] in Blood 8.0 g/dL 14.0 - 16.0 L [facility] Hematocrit [Volume Fraction] of Blood by Automated count 24.9 % 4 1.0 - 51.0 L [facility] Erythrocyte mean corpuscular volume [Entitic volume] by Auto mated count 95.0 fL 80.0 - 94.0 H [facility] Erythrocyte mean corpuscular hemoglobin [Entitic mass] by Automated count 30.5 pg 27.0 - 34.0 [facility] Erythrocyte mean corpuscular hemoglobin concentration [Mass/volume] by Automated count 32.1 g/dL 31.0 - 36.0 [facility] Erythrocyte distribution width [Ratio] by Automated count 15.1 % 11.5 - 14.8 H [facility] Platelets [#/volume] in Blood by Automated count 310 10^3/uL 150 - 45 0 [facility] Platelet mean volume [Entitic volume] in Blood by Automated count 10.0 fL 7.4 - 10.4 [facility] Neutrophils/100 leukocytes in Blood by Automated count 70.7 % 37. 0 - 80.0 [facility] Lymphocytes/100 leukocytes in Blood by Manual count 18.2 % 25.0 - 40.0 L [facility] Monocytes/100 leukocytes in Blood by Automated count 6.2 % 3.0 - 8.0 [facility] Eosinophils/100 leukocytes in Blood by Automated count 4.0 % 0.0 - 7.0 [facility] Basophils/100 leukocytes in Blood by Automated count 0.7 % 0.0 - 2.0 [facility] %IG 0.2 % 0.0 - 0.0 [facility] %[facility] 0.0 % 0.0 - 0.0 [facility] al Neutrophils [#/volume] in Blood by Automated count 6.16 10^3/uL 2.00 - 6.90 [facility] Lymphocytes [#/volume] in Blood by Automated count 1.59 10^3/uL 0.60 - 3.40 [facility] Monocytes [#/volume] in Blood by Automated count 0.54 10^3/uL 0.00 - 0.90 [facility] Eosinophils [#/volume] in Blood by Automated count 0.35 10^3/uL 0.00 - 0.70 [facility] Basophils [#/volume] in Blood by Automated count 0.06 10^3/uL 0.00 - 0.20 [facility] #IG 0.02 10^3/uL 0.00 - 0.10 [facility] ospital #NRBC 0.00 10^3/uL 0.00 - 0.00 [facility] ospital MANUAL DIFF NOT INDICATED [facility] RBC MORPH NOT INDICATED [facility] spital ID Date Data Source [id number] 06/29/2019 07:35:00 PM EST [facility] Name Value Range Interpretation Code Description Data Tania rce(s) Supporting Document(s) COMPREHENSIVE METABOLIC PANEL [facility] COMPREHENSIVE METABOLIC PANEL Sodium [Moles/volume] in Serum or Plasma 136 mEq/L 134 - 153 [facility] Potassium [Moles/volume] in Serum or Plasma 4.8 mEq/L 3.6 - 5.0 [facility] Chloride [Moles/volume] in Serum or Plasma 99 mEq/L 98 - 107 [facility] Carbon dioxide, total [Moles/volume] in Serum or Plasma 26 MEQ/L 22 - 30 [facility] Glucose [Mass/volume] in Serum or Plasma 126 MG/DL 65 - 110 H [facility] BUN 12 MG/DL 7 - 21 [facility] al Creatinine [Mass/volume] in Serum or Plasma 0.9 MG/DL 0.7 - 1.5 [facility] BUN/CREAT 13 8 - 27 [facility] Protein [Mass/volume] in Serum or Plasma 6.7 G/DL 6.3 - 8.2 [facility] Albumin [Mass/volume] in Serum or Plasma 3.2 G/DL 3.9 - 5.0 L [facility] Globulin [Mass/volume] in Serum by calculation 3.5 GM/DL 2.4 - 3.2 H [facility] A/G RATIO 0.9 0.8 - 2.0 [facility] Calcium [Mass/volume] in Serum or Plasma 9.0 MG/DL 8.4 - 10.2 [facility] Bilirubin.total [Mass/volume] in Serum or Plasma <0.7 MG/DL 0.2 - 1.3 [facility] Alkaline phosphatase [Enzymatic activity/volume] in Serum or Plasma 159 U/L 38 - 126 H [facility] Aspartate aminotransferase [Enzymatic activity/volume] in Serum or Plasma 20 U/L 5 - 40 [facility] Alanine aminotransferase [Enzymatic activity/volume] in Seru m or Plasma 17 U/L 7 - 56 [facility] Anion gap 3 in Serum or Plasma 11.0 mmol/L 8.0 - 16.0 [facility] AGE 84 yrs [facility] al NON-AA GFR >60 mL/min [facility] ital AFR AMER GFR >60 mL/min [facility] Ho spital Male GFR In terprentation 20-49 [...] >32 mL/min Normal ID Date Data Source [id number] 06/26/2019 05:25:00 PM [facility] Name Value Range Interpretation Code Description Data Tania rce(s) Supporting Document(s) C reactive protein [Mass/volume] in Serum or Plasma by High sensitivity method 67.29 MG/L 1.00 - 3.00 H [facility] HS-CRP CUT-OFF: RELATIVE RISK: <1.0 mg/L Low 1.0 - 3.0 mg/L Average >3.0 mg/L High Optimally, the average of HS-CRP results repeated two weeks apart should be used for risk assessment. ID Date Data Source [id number] 06/26/2019 05:15:00 PM [facility] Name Value Range Interpretation Code Description Data Tania rce(s) Supporting Document(s) Erythrocyte sedimentation rate by Westergren method 50 mm/hr 0 - 20 H [facility] SED RATE REENTER 50 [facility] ID Date Data Source [id number] 06/26/2019 04:17:00 PM [facility] Name Value Range Interpretation Code Description Data Tania rce(s) Supporting Document(s) COMPREHENSIVE METABOLIC PANEL [facility] COMPREHENSIVE METABOLIC PANEL Sodium [Moles/volume] in Serum or Plasma 139 mEq/L 134 - 153 [facility] Potassium [Moles/volume] in Serum or Plasma 4.3 mEq/L 3.6 - 5.0 [facility] Chloride [Moles/volume] in Serum or Plasma 99 mEq/L 98 - 107 [facility] Carbon dioxide, total [Moles/volume] in Serum or Plasma 27 MEQ/L 22 - 30 [facility] Glucose [Mass/volume] in Serum or Plasma 264 MG/DL 65 - 110 H [facility] BUN 11 MG/DL 7 - 21 [facility] al Creatinine [Mass/volume] in Serum or Plasma 1.0 MG/DL 0.7 - 1.5 [facility] BUN/CREAT 11 8 - 27 [facility] al Protein [Mass/volume] in Serum or Plasma 6.3 G/DL 6.3 - 8.2 [facility] Albumin [Mass/volume] in Serum or Plasma 3.2 G/DL 3.9 - 5.0 L [facility] Globulin [Mass/volume] in Serum by calculation 3.1 GM/DL 2.4 - 3.2 [facility] A/G RATIO 1.0 0.8 - 2.0 [facility] Calcium [Mass/volume] in Serum or Plasma 8.7 MG/DL 8.4 - 10.2 [facility] Bilirubin.total [Mass/volume] in Serum or Plasma <0.7 MG/DL 0.2 - 1.3 [facility] Alkaline phosphatase [Enzymatic activity/volume] in Serum or Plasma 153 U/L 38 - 126 H [facility] Aspartate aminotransferase [Enzymatic activity/volume] in Serum or Plasma 24 U/L 5 - 40 [facility] Alanine aminotransferase [Enzymatic activity/volume] in Seru m or Plasma 18 U/L 7 - 56 [facility] Anion gap 3 in Serum or Plasma 13.0 mmol/L 8.0 - 16.0 [facility] AGE 84 yrs [facility] al NON-AA GFR >60 mL/min [facility] ital AFR AMER GFR >60 mL/min [facility] Ho spital Male GFR In terprentation 20-49 [...] >32 mL/min Normal ID Date Data Source [id number] 06/26/2019 03:52:00 PM EST [facility] Name Value Range Interpretation Code Description Data Tania rce(s) Supporting Document(s) CBC W/AUTOMATED DIFF [facility] COMPLETE BLOOD COUNT Leukocytes [#/volume] in Blood by Automated count 9.8 10^3/uL 4.2 - 1 1.0 [facility] Erythrocytes [#/volume] in Blood by Automated count 2.55 10^6/uL 4. 50 - 6.30 L [facility] Hemoglobin [Mass/volume] in Blood 7.8 g/dL 14.0 - 16.0 L [facility] Hematocrit [Volume Fraction] of Blood by Automated count 24.2 % 4 1.0 - 51.0 L [facility] Erythrocyte mean corpuscular volume [Entitic volume] by Auto mated count 94.9 fL 80.0 - 94.0 H [facility] Erythrocyte mean corpuscular hemoglobin [Entitic mass] by Automated count 30.6 pg 27.0 - 34.0 [facility] Erythrocyte mean corpuscular hemoglobin concentration [Mass/volume] by Automated count 32.2 g/dL 31.0 - 36.0 [facility] Erythrocyte distribution width [Ratio] by Automated count 15.4 % 11.5 - 14.8 H [facility] Platelets [#/volume] in Blood by Automated count 434 10^3/uL 150 - 45 0 [facility] Platelet mean volume [Entitic volume] in Blood by Automated count 9.6 fL 7.4 - 10.4 [facility] Neutrophils/100 leukocytes in Blood by Automated count 79.3 % 37. 0 - 80.0 [facility] Lymphocytes/100 leukocytes in Blood by Manual count 13.3 % 25.0 - 40.0 L [facility] Monocytes/100 leukocytes in Blood by Automated count 4.8 % 3.0 - 8.0 [facility] Eosinophils/100 leukocytes in Blood by Automated count 1.9 % 0.0 - 7.0 [facility] Basophils/100 leukocytes in Blood by Automated count 0.4 % 0.0 - 2.0 [facility] %IG 0.3 % 0.0 - 0.0 [facility] %[facility] 0.0 % 0.0 - 0.0 [facility] al Neutrophils [#/volume] in Blood by Automated count 7.79 10^3/uL 2.00 - 6.90 H [facility] Lymphocytes [#/volume] in Blood by Automated count 1.31 10^3/uL 0.60 - 3.40 [facility] Monocytes [#/volume] in Blood by Automated count 0.47 10^3/uL 0.00 - 0.90 [facility] Eosinophils [#/volume] in Blood by Automated count 0.19 10^3/uL 0.00 - 0.70 [facility] Basophils [#/volume] in Blood by Automated count 0.04 10^3/uL 0.00 - 0.20 [facility] #IG 0.03 10^3/uL 0.00 - 0.10 [facility] H ospital #NRBC 0.00 10^3/uL 0.00 - 0.00 [facility] H ospital MANUAL DIFF NOT INDICATED [facility] RBC MORPH NOT INDICATED [facility] Ho spital ID Date Data Source [id number] 06/26/2019 08:43:26 AM EST [facility] Name Value Range Interpretation Code Description Data Tania rce(s) Supporting Document(s) Progress Note [employer] [id number]/TDUgvNEGof5KjGWdsHSx0TPruUIMpW2AdAYB5bK7pUQP5OGmSCbAlRGjiMtMu [facility] QkVwwQKuKdHGIqIubMBrUfVNfhYmhbvAIaLF3LdMJ2TUVjC75mBNIrSJGgP5JgDEVqTLk+Lm5UYDYmzA HkTJ6PVdmT3R1Mf0gRYI1UnH/STWLSO1yD8qlVMJL65S62T1u6eM6lH28LfPK3GfcALFgP/f3xKrpYLO +Kj9DTWFa3I4WJg06X9/B3DWUNgIb//aHrOuK1ajy7 f/9nklkzPDd//cBTDAfgdqUQn1bXjmN6iDlRZ4v/KUw7B67udMYaAAW4Dm7G40bgQn6E9dfoNbOs2CI4 95fFl1vprq5rC82GgKLtct9mY+AJEzpIjm7Dr+JkKC63MTBzcCrfqVNGJifQ6rXJ4fEiYHjmpes0aSEv smgxYPC0i6wa2p6Tf5LqyP39wNA6SVFGW2vb0CRV00 ni8sJnlaSE+14c+Parker/p0eTsLQN/u3UDqn6ExPhX5qdOteq49VSvrij8SyR17IpoSZ8Z9yKWDHe7P+zT [file] ID Date Data Source [id number] 06/22/2019 07:01:17 AM EST [facility] Name Value Range Interpretation Code Description Data Tania rce(s) Supporting Document(s) Operative Note [facility] UBGUJu9qYnFWJuUj29/NJPztFEDun7RvNHpcESb3CShsPDXvV4CpIBY2eM7kLLW3MNuGWaDnVCbjRjS0 lbm [file] EhlbF8dlUmUCdeGnW5LW1XMQIPR3QCZl== ID Date Data Source [id number] 06/19/2019 05:39:00 PM EST [facility] Name Value Range Interpretation Code Description Data Tania rce(s) Supporting Document(s) Erythrocyte sedimentation rate by Westergren method 50 mm/hr 0 - 20 H [facility] SED RATE REENTER 50 [facility] ID Date Data Source [id number] 06/19/2019 04:56:00 PM [facility] Name Value Range Interpretation Code Description Data [facility] rce(s) Supporting Document(s) C reactive protein [Mass/volume] in Serum or Plasma by High sensitivity method 135.58 MG/L 1.00 - 3.00 H [facility] CDC/S HS-CRP CUT-OFF: RELATIVE RISK: <1.0 mg/L Low 1.0 - 3.0 mg/L Average >3.0 mg/L High Optimally, the average of HS-CRP results repeated two weeks apart should be used for risk assessment. ID Date Data Source [id number] 06/19/2019 04:56:00 PM [facility] Name Value Range Interpretation Code Description [facility]s) CBC W/AUTOMATED DIFF [facility] COMPLETE BLOOD COUNT Leukocytes [#/volume] in Blood by Automated count 11.3 10^3/uL 4.2 - 11.0 H [facility] Erythrocytes [#/volume] in Blood by Automated count 2.69 10^6/uL 4. 50 - 6.30 L [facility] Hemoglobin [Mass/volume] in Blood 8.0 g/dL 14.0 - 16.0 L [facility] Hematocrit [Volume Fraction] of Blood by Automated count 25.1 % 4 1.0 - 51.0 L [facility] Erythrocyte mean corpuscular volume [Entitic volume] by Auto mated count 93.3 fL 80.0 - 94.0 [facility] Erythrocyte mean corpuscular hemoglobin [Entitic mass] by Automated count 29.7 pg 27.0 - 34.0 [facility] Erythrocyte mean corpuscular hemoglobin concentration [Mass/volume] by Automated count 31.9 g/dL 31.0 - 36.0 [facility] Erythrocyte distribution width [Ratio] by Automated count 15.0 % 11.5 - 14.8 H [facility] Platelets [#/volume] in Blood by Automated count 439 10^3/uL 150 - 45 0 [facility] Platelet mean volume [Entitic volume] in Blood by Automated count 9.5 fL 7.4 - 10.4 [facility] Neutrophils/100 leukocytes in Blood by Automated count 79.7 % 37. 0 - 80.0 [facility] Lymphocytes/100 leukocytes in Blood by Manual count 13.6 % 25.0 - 40.0 L [facility] Monocytes/100 leukocytes in Blood by Automated count 5.7 % 3.0 - 8.0 [facility] Eosinophils/100 leukocytes in Blood by Automated count 0.4 % 0.0 - 7.0 [facility] Basophils/100 leukocytes in Blood by Automated count 0.2 % 0.0 - 2.0 [facility] %IG 0.4 % 0.0 - 0.0 H [facility] al %NRBC 0.0 % 0.0 - 0.0 [facility] al Neutrophils [#/volume] in Blood by Automated count 9.02 10^3/uL 2.00 - 6.90 H [facility] Lymphocytes [#/volume] in Blood by Automated count 1.54 10^3/uL 0.60 - 3.40 [facility] Monocytes [#/volume] in Blood by Automated count 0.64 10^3/uL 0.00 - 0.90 [facility] Eosinophils [#/volume] in Blood by Automated count 0.05 10^3/uL 0.00 - 0.70 [facility] Basophils [#/volume] in Blood by Automated count 0.02 10^3/uL 0.00 - 0.20 [facility] #IG 0.04 10^3/uL 0.00 - 0.10 [facility] ospital #NRBC 0.00 10^3/uL 0.00 - 0.00 [facility] ospital MANUAL DIFF NOT INDICATED [facility] RBC MORPH NOT INDICATED [facility] spital ID Date Data Source [id number] 06/19/2019 04:40:00 PM EST [facility] Name Value Range Interpretation Code Description Data Tania rce(s) Supporting Document(s) COMPREHENSIVE METABOLIC PANEL [facility] COMPREHENSIVE METABOLIC PANEL Sodium [Moles/volume] in Serum or Plasma 133 mEq/L 134 - 153 L [facility] Potassium [Moles/volume] in Serum or Plasma 5.0 mEq/L 3.6 - 5.0 [facility] Chloride [Moles/volume] in Serum or Plasma 99 mEq/L 98 - 107 [facility] Carbon dioxide, total [Moles/volume] in Serum or Plasma 20 MEQ/L 22 - 30 L [facility] Glucose [Mass/volume] in Serum or Plasma 271 MG/DL 65 - 110 H [facility] BUN 27 MG/DL 7 - 21 H [facility] Creatinine [Mass/volume] in Serum or Plasma 1.2 MG/DL 0.7 - 1.5 [facility] BUN/CREAT 23 8 - 27 [facility] Protein [Mass/volume] in Serum or Plasma 5.7 G/DL 6.3 - 8.2 L [facility] Albumin [Mass/volume] in Serum or Plasma 2.9 G/DL 3.9 - 5.0 L [facility] Globulin [Mass/volume] in Serum by calculation 2.8 GM/DL 2.4 - 3.2 [facility] A/G RATIO 1.0 0.8 - 2.0 [facility] Calcium [Mass/volume] in Serum or Plasma 8.6 MG/DL 8.4 - 10.2 [facility] Bilirubin.total [Mass/volume] in Serum or Plasma <0.7 MG/DL 0.2 - 1.3 [facility] Alkaline phosphatase [Enzymatic activity/volume] in Serum or Plasma 119 U/L 38 - 126 [facility] Aspartate aminotransferase [Enzymatic activity/volume] in Serum or Plasma 19 U/L 5 - 40 [facility] Alanine aminotransferase [Enzymatic activity/volume] in Seru m or Plasma 14 U/L 7 - 56 [facility] Anion gap 3 in Serum or Plasma 14.0 mmol/L 8.0 - 16.0 [facility] AGE 84 yrs [facility] al NON-AA GFR >60 mL/min [facility] ital AFR AMER GFR >60 mL/min [facility] Ho spital Male GFR In terprentation 20-49 [...] >32 mL/min Normal ID Date Data Source [id number] 06/19/2019 04:38:00 PM [facility] Name Value Range Interpretation Code Description Data Tania rce(s) Supporting Document(s) Vancomycin [Mass/volume] in Serum or Plasma --trough 17.3 ug/mL [facility] H First trough is drawn 30 minutes prior to fourth dose. If patient is not hemodynamically stable, a trough is obtained as deemed medically necessary. If patient is hemodynamically stable, a trough should be drawn once a week. The trough is drawn 30 minutes prior to the next dose. Mild Infections Trough 10-15 mg/L Severe Infections Trough 15-20 mg/L NURSING CLERK Infections Trough 20-25 mg/L *Severe Infections - Endocarditis, Osteomyelitis, Hospital Acquired Pneumonia, Sepsis ID Date Data Source [id number] 06/18/2019 12:41:02 PM [facility] Name Value Range Interpretation Code Description Data Tania rce(s) Supporting Document(s) History and Physical [facility] ZXNINn7wSqVQWxWj73/WXJgtTSFuj1WxIEupJKx9HIoxKOYuZ0JoOLR6wZ0dICS3HVkSQmRcLBxqTcIc lbm [file] ICAgICAgICAgICAgICAgICAgICAgICAgICAgICAgICAgICAgICAgICAgICAgICAgICAgICAgICAgICAg ICAgICAgICAgICANCiAgICAgICAgICAgICAgICAgIC AgICAgICAgICAgICAgICAgICAgICAgICAgICAgICAgICAgICAgICAgICAgICAgICAgICAgICAgICAgIC AgICAgICAgICAgICAgICAgICAgICANCiAgICAgICAgICAgICAgICAgICAgICAgICAgICAgICAgICAgIC AgICAgICAgICAgICAgICAgICAgICAgICAgICAgICAg ICAgICAgICAgICAgICAgICAgICAgICAgICAgICAgICANCiAgICAgICAgICAgICAgICAgICAgICAgICAg ICAgICAgICAgICAgICAgICAgICAgICAgICAgICAgICAgICAgICAgICAgICAgICAgICAgICAgICAgICAg ICAgICAgICAgICAgICANCiAgICAgICAgICAgICAgIC AgICAgICAgICAgICAgICAgICAgICAgICAgICAgICAgICAgICAgICAgICAgICAgICAgICAgICAgICAgIC AgICAgICAgICAgICAgICAgICAgICAgICANCiAgICAgICAgICAgICAgICAgICAgICAgICAgICAgICAgIC AgICAgICAgICAgICAgICAgICAgICAgICAgICAgICAg ICAgICAgICAgICAgICAgICAgICAgICAgICAgICAgICAgICANCiAgICAgICAgICAgICAgICAgICAgICAg ICAgICAgICAgICAgICAgICAgICAgICAgICAgICAgICAgICAgICAgICAgICAgICAgICAgICAgICAgICAg ICAgICAgICAgICAgICAgICANCiAgICAgICAgICAgIC AgICAgICAgICAgICAgICAgICAgICAgICAgICAgICAgICAgICAgICAgICAgICAgICAgICAgICAgICAgIC AgICAgICAgICAgICAgICAgICAgICAgICAgICANCiAgICAgICAgICAgICAgICAgICAgICAgICAgICAgIC AgICAgICAgICAgICAgICAgICAgICAgICAgICAgICAg ICAgICAgICAgICAgICAgICAgICAgICAgICAgICAgICAgICAgICANCiAgICAgICAgICAgICAgICAgICAg ICAgICAgICAgICAgICAgICAgICAgICAgICAgICAgICAgICAgICAgICAgICAgICAgICAgICAgICAgICAg ICAgICAgICAgICAgICAgICAgICANCjw/mSSqZ5smbF RmamR1J4ylRp9NMr2FCE5pa8IlVODiTCzmluTlYhlSLlAjCSVaIvtZHnj5AQfqNN2ApIJiK9JlC5IbXY skLZ4UCILdHTFhmBSjACPtUPOePsB5MYWePPqeYK6QdLDvJDtsMIBnXRAmYxLkQGUgRHIbDHMtILMwUE ZQTK2NTvFmG8UxwU25NCTGEg6+DQplbmRvYmoNCjMx PQSeb3IwZTk9RK5FYDWsYzces1DmOiLcSDRYINxqWK9NNRV6WKDqJMOtMk7HHJJsJ615ebEfNI2ZBv7E ChCmJS9tcv7XNnOiPGGrCelNEht4PKosOM3ShRQtDIvCFlBfPekuL2YyCFAHaBO4WNQIIgJVSLS6XHRw SsC1FuQyBMefXCP2AESiTW7qAWpwZW2SVEN9AAuiYZ AtADIuB3aLGiAfSSSrDkWuyZhdZN1GMrEfA0RlmrIvhJSpKMTcTQGRWf4+DQplbmRvYmoNCjMzIDAgb2 HhISr8QT3YERMeTKzdRG4BGPNptQ6aUDhtNX5NAtGlXNDkMLHMOoWbF82feEIoGEn7V8ExGqAcGCWrRr lsZXMgPDwvTmFtZXMgWyBdDQogID4+ID4+MXpeCO7M GWjkwrQgOKIeSu2PUDKcHZWyOK3zVLHpILMmB9Q0tPxoYCZRAyCkW8rsivgmVD9eWYUcF618rQnoaeLr AHMcWJZrYd0EPEHhSSG6RSOeiAMcSrBiETRETKljJG9FmGYvXWI7pP5jYOvxCDBaFIAfO8sALmUmpPrm XI77kVfpdyHewUIrLIf+Oz4CWG6ct8UvNYw7mbWmQJ btSYR8BKphFIUyPNVoHUXwXTK1IKF0CCSEAbUiOTNvIXJjJQfaMEVrHJXtdr5JTPFgPCKzAJC4YDKjVP SoOSXoESdpZGHtQEOzRPj0XXEqZXNwMN8ZQfDmHAXpXPSwEDswFXDhSGNzrc5QYIRnKFIxXqI9GpIbLP ZcPMTrXEowPENfNQVpIFtbZOJvGQNkQW1UNgMpGWAu NFnsWWPdOQPkZRWxky7LHCRvLJXeZoX1NWKaCQJbRJHkBVryFATeXYEdVMobVIKoIMVmOH4ELzDzAGWo OPP8WwStHMHzCOZyfq7KDHErGXHrKdS0EEYwJZOrQSKwQUzfBSAuOHSqCWrqVMBiOVNsSI8TXoUwKOPm SPM7CFFuSPKkSAYtbm6JMZOrZXEdFiw5ZeFtAXDqBD SbIWjvAXBtULCpYPJsUEXhPDGoZI3NBeBuSLLvRKL0LKvhTHVpCLVzsx3RPIVtXKOzGVJ0XEVeLGFeVQ PhKUebZDXmSKJ4Jts1UBWmEGPmFL1MPnFnAQAfWOGkTksbFLRnTKCmgk1WXVJiPCUfAcOiGdCeNRGfXP FvGKkwBLYsDDF3ZfD4MGHjBYFgXO5XMgMsRYFkLssy BFQhPIJkRCNosr2MNALcEBPxZPBmAsEaKOAbKPCqCEjiJJWfBOZ6FVOqAPSyXIApLL3OObJpMBNsIue8 JzAhBMQhKPEjen5ROZYuUJQlKMazPlXdMXDoBMXaAYwwLHRzFXF2UAHdDVVkUHIrVR1YWoYhYPXrOpBi BYdsPHIsJWIahv2ZJSLgNKYcJMYhSiFgEECuWBXpVM pzLFVyIVQnXaN0YOBuKDGeMW2GPpOaQVAxJiPzGPWvIGPhEWSnfj0LOQSgEDQvUvA0RgVjACRiLYOeND nfMEWuWVMpTzBdGMKxIANaZF6KDoElJEzfCOXPHmo4CFagT6s0SDQeCF0XJ5His5QnFsBaOMBMPFxgTM 2lluVgAMIvXd6VQ9uMZnh0WCmqZnKwXVJ3M2YpO1Q1 UzknIXZpDrDaTWR9XbKwTv9lXKz5KNZ9IHL8KBVlQ4QaYkhmYAV1K6AzEeB7YfQtOYXfLkNwFU3MZy2W BwE4EIT1oFRmRy8DQvZ8EfcEHvClMS2DZXp= ID Date Data Source [id number] 06/15/2019 02:59:13 PM EST [facility] Name Value Range Interpretation Code Description Data Tania rce(s) Supporting Document(s) Discharge Summary [facility] BRIFYy9cEsNMGeEj51/UEWvjTNBia9PuGEtiVAx1CNnaTBJrI8FvGDA0cG0eRVD5QOvWTgZhDSkdExO2 lbm WrKegCMnUnAYJqWdsKMcWqPMmxQesbcHFaCO8UvJY1SEQtW88eMFGhBTOiQ5NfOHU8LVQ+Jr0CUQVpqL GvXG3NZbbF7Q9px2vCZZ2j3W+waNEgAWKZy+Qn7VlbpfTEvi3fGdZJyAhSen39ytDMfg8lG8TeQw5UBj LyeDSSARScZQxIvqV647xGWRDW/h6fZtC3fzQV9Z/1 BGbjQL9UD/8B1Ltnd1uy/shuIg+4jnbC/UEgl4C1X8gzYkU/qZNZJUrtGGcdrU35mMv3zAjtNR28JGp/ Z6oNMc4k4KDSFW+RLkkNCPgL3crQDawWYThbnJ6MxiZInkEl6QSknBeKp/bizYxdyA8bf2AOFx8ypTm7 fjdP2j5JCCaT3iTnTnZjTgMiQhET2irnUwy9QPljNb EKJDuAQt5nsIpXy0irFMOGPFpV7Fh4xMbOpdUG+468vA8w8kSiConab9vjd8NJKuvkNX2AsQ3Uokk9+B IxzeqY6N55VrazOMedxLOx9cM/Bf3Zbdm0vGhyuQ0kurLP2MW8jsCbs+owzz2Yg1AkFuKYQOX++7NMzS BIheeUjpEzdjyaxTZNLaPhqscZcXvTjdKJVirdnMXf [file] AgICAgICAgICAgICAgICAgICAgICAgICAgICAgICAgICAgICAgICAgICAgICAgICAgICAgICAgICAgIC AgICAgICANCiAgICAgICAgICAgICAgICAgICAgICAg ICAgICAgICAgICAgICAgICAgICAgICAgICAgICAgICAgICAgICAgICAgICAgICAgICAgICAgICAgICAg ICAgICAgICAgICAgICAgICANCiAgICAgICAgICAgICAgICAgICAgICAgICAgICAgICAgICAgICAgICAg ICAgICAgICAgICAgICAgICAgICAgICAgICAgICAgIC AgICAgICAgICAgICAgICAgICAgICAgICAgICANCiAgICAgICAgICAgICAgICAgICAgICAgICAgICAgIC AgICAgICAgICAgICAgICAgICAgICAgICAgICAgICAgICAgICAgICAgICAgICAgICAgICAgICAgICAgIC AgICAgICAgICANCiAgICAgICAgICAgICAgICAgICAg ICAgICAgICAgICAgICAgICAgICAgICAgICAgICAgICAgICAgICAgICAgICAgICAgICAgICAgICAgICAg ICAgICAgICAgICAgICAgICAgICANCiAgICAgICAgICAgICAgICAgICAgICAgICAgICAgICAgICAgICAg ICAgICAgICAgICAgICAgICAgICAgICAgICAgICAgIC AgICAgICAgICAgICAgICAgICAgICAgICAgICAgICANCiAgICAgICAgICAgICAgICAgICAgICAgICAgIC AgICAgICAgICAgICAgICAgICAgICAgICAgICAgICAgICAgICAgICAgICAgICAgICAgICAgICAgICAgIC AgICAgICAgICAgICANCiAgICAgICAgICAgICAgICAg ICAgICAgICAgICAgICAgICAgICAgICAgICAgICAgICAgICAgICAgICAgICAgICAgICAgICAgICAgICAg ICAgICAgICAgICAgICAgICAgICAgICANCiAgICAgICAgICAgICAgICAgICAgICAgICAgICAgICAgICAg ICAgICAgICAgICAgICAgICAgICAgICAgICAgICAgIC AgICAgICAgICAgICAgICAgICAgICAgICAgICAgICAgICANCiAgICAgICAgICAgICAgICAgICAgICAgIC AgICAgICAgICAgICAgICAgICAgICAgICAgICAgICAgICAgICAgICAgICAgICAgICAgICAgICAgICAgIC AgICAgICAgICAgICAgICANCjw/tDKeM0dmgXBeryH5 R6bbRg4GXu7CMW2vs3EeQNKfGUmjnlXlTmnHHwJsJNVxNybAOdi0ENwfMT2CpOPwG1UuL9JlJDxdKB5W SBLnITBmjYCmTEGyHKWxFaU8WBUxZEzcPH8GjAAnISdtUPApUGLtQxMgZZDfNQNvVJFgBQAuUPPCNOBi HJZcTeOnFTlcPB1Pv8OcrWX2XBc+We7MXS9tq3UtYT roGGAtKN9jvh6NRZnRNrCyL9UqpgZ2CFL9WEJiTp1LKVOvTVQemVKkGnKzOOUXZxKvN7HqhA41DWFTTx 4+VVsfdnBqYkvINdZ9UBMxm1JuGCl1HS6MYYKyPAb8yMYoPCibD0jkyjkbSSE1vV0yizukHdnkHhRjBG XbG4EpxIMhJRKBKHWllETeMp3jGV2rKRP8POFaDqW4 JWIFAO9CWUAlVHEroWIuKBQmSATTMR8TGFvjUJR9SBYxvyJdeKBaVEigXS4QOSUoryAiLjCeOBLJKKn+ Od3HFZ8li5EcAHyvFxOwMY5lxe2MZGwBQnAeV3Y2aNFtI5F7VFqsOk2QDSYeFRStAjZrRKMVDDunGW7V MB1jvtT6CR8KqHFoNMOyDDDruWMlEAs3F28nhDBhJY xaVM3XXSF+Sammy+Gc4GCCMyQTCpNKGtPxEdDLNYIeQmU5EoV0FVo1KjP2SbBV70wGyectIlERvpSN6RFG 3uBHEnRQRMLP6FsAFubU7mauAjREYoECZROdSaY12etJCiROBlMZQ4PJOjZf4UPNSlN6ZwjhJzfJdvre EaIWViHILNZG6FQDonjrNvlXEvqQvrGM88zZzaEB8A Ab0BJvJmJE0pjh9EfGTgWd0YFDHaCI4BBDYnVIRoUWDdTQF2UUAiWjSmFKfqPNFrHAAqDBH5JEKwLBUk SF8EZfArJLNeQqFaKMdbTWOsUCLnru5VIGRnKQQrHeH7MlDzYNKuKHNjHOzrMSWpLNBiSCT7NMUmWRPt OD3ZCwZeZUTbCNU9OeXtWMOeOBPqmb0WMFRxFNWtIO NoOlUxTQXmAACwNWbfLNTjDJU2Caf3DQCdGBTwTS0GZaYbYOQhZOv2VlwjWQJjCKVznk3BBSOtDJMnHw Z4NOCbTPIkFRRwYTmtAOOwNRVeEIazZJFsLXEiAX9MNpTjNALeGWU4HTPbNQPkWFBpnk9AQWXfWKZtYP dpSpRxSAMzYFDzYKsuMAQaOAO0GPS1GZLiKHPdKW1R WpCxKUVwQSziPJMdPDBgZHZkkg5KSRVfPGCaKREtIHCcJYCbRZQxBHasSNTkVIT3FFW8WJQrOCOuRA3Z QxJvSQPbYZy2YAJlAEGlJFEsob3XFQYiVANcBKG3YRVtFGAcSQFpYKtlUOIuDKP4XhCxJEXuTOLuHC2P TvCzSQLnZZo5XvohQYEtXBJwpe8JNNSoSVCeFOu7LH YzUTBnEIKtKZwqXABtNVUmWWEnSTRdCEYqQQ4YDcDkHAPsVdJhXTUxMAYoEGIoym8GZIXiHISkOSgfKx JbQNPiUQKrJNzgJBHyWTHrFMflPNDjPQLpUA5MIvVpNMPjNaWsRSJmYFUoZXDvbf6AJXMtFNWxJgCgTd NtMLDdWKMxWDy8goLqnGRlQSo5SF8BZ1DbucZlXzlL Qz3Gr340DJS8WNHvPa3TV5mfNd1oGUNjMHVEXw8BICc6OFb7LZC5FzR7UDoqZVBgU9IbNCs1Q2M9NVao OOs6FSg+XLtoUwkiLfK0UtZsJLK3UuEvFQB3YQMqECVdZWQ9ZKO5Tc0hWCRYHx9+DQpzdGFydHhyZWYN SvXfUsX8AFaeGLUEPb3T ID Date Data Source [id number] 06/15/2019 11:42:34 AM [facility] Name Value Range Interpretation Code Description Data Tania rce(s) Supporting Document(s) Glucose [Mass/volume] in Capillary blood by Glucometer 106 mg/dL 70- 140 [facility] ID Date Data Source [id number] 06/15/2019 11:10:43 AM [facility] Name Value Range Interpretation Code Description Data Tania rce(s) Supporting Document(s) Leukocytes [#/volume] in Blood by Automated count 7.7 10*3/uL 4-10 [facility] Erythrocytes [#/volume] in Blood by Automated count 2.38 10*6/uL 4.6- 6.1 L [facility] Hemoglobin [Mass/volume] in Blood 7.5 g/dL 13.5-18 L [facility] Hematocrit [Volume Fraction] of Blood by Automated count 22.5 % 4 1-53 L [facility] Erythrocyte mean corpuscular volume [Entitic volume] by Auto mated count 94.7 fL 80-96 [facility] Erythrocyte mean corpuscular hemoglobin [Entitic mass] by Automated count 31.5 pg 27-33 [facility] Erythrocyte mean corpuscular hemoglobin concentration [Mass/volume] by Automated count 33.3 g/dL 32.0-36.[facility] distribution width [Ratio] by Automated count 16.1 % 11.5-14.5 H [facility] Platelets [#/volume] in Blood by Automated count 285 10*3/uL 150-400 [facility] ID Date Data Source [id number] 06/15/2019 11:51:42 AM [facility] Name Value Range Interpretation Code Description Data Tania rce(s) Supporting Document(s) Ferritin [Mass/volume] in Serum or Plasma 171 ng/ml 30-400 [facility] ID Date Data Source [id number] 06/15/2019 03:28:23 PM [facility] Name Value Range Interpretation Code Description Data Tania rce(s) Supporting Document(s) Iron [Mass/volume] in Serum or Plasma 19 ug/dl 59-158 [facility] Transferrin [Mass/volume] in Serum or Plasma 116 mg/dL 200-360 [facility] Iron binding capacity [Mass/volume] in Serum or Plasma 161 ug/dl 228 -428 [facility] Iron saturation [Mass Fraction] in Serum or Plasma 12.0 % 20-55 [facility] ID Date Data Source [id number] 06/15/2019 11:35:13 AM [facility] Name Value Range Interpretation Code Description Data Tania rce(s) Supporting Document(s) Vancomycin [Mass/volume] in Serum or Plasma --trough 13.1 ug/mL 10.0- 20.0 [facility] ID Date Data Source [id number] 06/15/2019 08:42:26 AM [facility] XR SPINE LUMBAR 2-3 VIEWS [id number] RES ULTInterpreted by:Roderick Dickerson MDORDERING CLINICAL INFORMATION: [...] rce(s) Supporting Document(s) ID Date Data Source [id number] 06/15/2019 08:06:03 AM [facility] Name Value Range Interpretation Code Description Data Tania rce(s) Supporting Document(s) Glucose [Mass/volume] in Capillary blood by Glucometer 149 mg/dL 70- 140 H [facility] ID Date Data Source [id number] 06/15/2019 05:30:47 AM [facility] Name Value Range Interpretation Code Description Data Tania rce(s) Supporting Document(s) Leukocytes [#/volume] in Blood by Automated count 7.7 10*3/uL 4-10 [facility] Erythrocytes [#/volume] in Blood by Automated count 2.32 10*6/uL 4.6- 6.1 L [facility] Hemoglobin [Mass/volume] in Blood 7.2 g/dL 13.5-18 L [facility] Hematocrit [Volume Fraction] of Blood by Automated count 21.8 % 4 1-53 L [facility] Erythrocyte mean corpuscular volume [Entitic volume] by Auto mated count 94.2 fL 80-96 [facility] Erythrocyte mean corpuscular hemoglobin [Entitic mass] by Automated count 30.9 pg 27-33 [facility] Erythrocyte mean corpuscular hemoglobin concentration [Mass/volume] by Automated count 32.8 g/dL 32.0-36.0 [facility] width [Ratio] by Automated count 16.4 % 11.5-14.5 H [facility] Platelets [#/volume] in Blood by Automated count 266 10*3/uL 150-400 [facility] Differential cell count method - Blood [facility] Neutrophils/100 leukocytes in Blood by Automated count 75 % [facility] Lymphocytes/100 leukocytes in Blood by Automated count 13 % [facility] Monocytes/100 leukocytes in Blood by Automated count 8 % [facility] Eosinophils/100 leukocytes in Blood by Automated count 4 % [facility] Basophils/100 leukocytes in Blood by Automated count 0 % [facility] Neutrophils [#/volume] in Blood by Automated count 5.81 10*3/uL 1.8-7 .0 [facility] Lymphocytes [#/volume] in Blood by Automated count 0.98 10*3/uL 1.2-4 .0 L [facility] Monocytes [#/volume] in Blood by Automated count 0.61 10*3/uL 0-0.8 [facility] Eosinophils [#/volume] in Blood by Automated count 0.30 10*3/uL 0-0.5 [facility] Basophils [#/volume] in Blood by Automated count 0.03 10*3/uL 0-0.2 [facility] Nucleated erythrocytes/100 leukocytes [Ratio] in Blood by Automated count 0 /100{WBCs} 0-0 [facility] ID Date Data Source [id number] 06/15/2019 05:50:31 AM [facility] Name Value Range Interpretation Code Description Data Tania rce(s) Supporting Document(s) Bicarbonate [Moles/volume] in Serum 23 mmol/L 22-29 [facility] Chloride [Moles/volume] in Serum or Plasma 105 mmol/L 98-107 [facility] Creatinine [Mass/volume] in Serum or Plasma 0.99 mg/dL 0.70-1.20 [facility] Glucose [Mass/volume] in Serum or Plasma 183 mg/dL 70-140 H [facility] Potassium [Moles/volume] in Serum or Plasma 3.6 mmol/L 3.4-5.1 [facility] Sodium [Moles/volume] in Serum or Plasma 138 mmol/L 136-145 [facility] Urea nitrogen [Mass/volume] in Serum or Plasma 17 mg/dL 8-23 [facility] Anion gap 3 in Serum or Plasma 10 mmol/L 8-15 [facility] Osmolality of Serum or Plasma by calculation 292 mosm/kg 275-300 [facility] Creatinine/Urea nitrogen [Mass Ratio] in Serum or Plasma 17 [facility] Calcium [Mass/volume] in Serum or Plasma 8.0 mg/dL 8.8-10.2 L [facility] Glomerular filtration rate/1.73 sq M pre dicted among non-blacks [Volume Rate/Area] in Serum or Plasma by Creatinine-based formula (MDRD) >6 0 [facility] Glomerular filtration rate/1.73 sq M pre dicted among blacks [Volume Rate/Area] in Serum or Plasma by Creatinine-based formula (MDRD) >60 [facility] ID Date Data Source [id number] 06/15/2019 05:50:31 AM [facility] Value Range Interpretation Code Description Data Tania rce(s) Supporting Document(s) Magnesium [Mass/volume] in Serum or Plasma 1.9 mg/dL 1.6-2.4 [facility] ID Date Data Source [id number] 06/15/2019 05:50:31 AM [facility] Value Range Interpretation Code Description Data Tania rce(s) Supporting Document(s) Phosphate [Mass/volume] in Serum or Plasma 2.9 mg/dL 2.5-4.5 [facility] ID Date Data Source [id number] 06/14/2019 08:48:50 PM [facility] Value Range Interpretation Code Description Data Tania rce(s) Supporting Document(s) Glucose [Mass/volume] in Capillary blood by Glucometer 234 mg/dL 70- 140 H [facility] ID Date Data Source [id number] 06/14/2019 04:39:20 PM [facility] Value Range Interpretation Code Description Data Tania rce(s) Supporting Document(s) Glucose [Mass/volume] in Capillary blood by Glucometer 81 mg/dL 70- 140 [facility] ID Date Data Source [id number] 06/14/2019 11:44:53 AM [facility] Value Range Interpretation Code Description Data Tania rce(s) Supporting Document(s) Glucose [Mass/volume] in Capillary blood by Glucometer 135 mg/dL 70- 140 [facility] ID Date Data Source [id number] 06/14/2019 09:47:45 AM [facility] Value Range Interpretation Code Description Data Tania rce(s) Supporting Document(s) Leukocytes [#/volume] in Blood by Automated count 9.5 10*3/uL 4-10 [facility] Erythrocytes [#/volume] in Blood by Automated count 2.53 10*6/uL 4.6- 6.1 L [facility] Hemoglobin [Mass/volume] in Blood 8.0 g/dL 13.5-18 L [facility] Hematocrit [Volume Fraction] of Blood by Automated count 23.9 % 4 1-53 L [facility] Erythrocyte mean corpuscular volume [Entitic volume] by Auto mated count 94.5 fL 80-96 [facility] Erythrocyte mean corpuscular hemoglobin [Entitic mass] by Automated count 31.5 pg 27-33 [facility] Erythrocyte mean corpuscular hemoglobin concentration [Mass/volume] by Automated count 33.4 g/dL 32.0-36.0 [facility] distribution width [Ratio] by Automated count 16.5 % 11.5-14.5 H [facility] Platelets [#/volume] in Blood by Automated count 280 10*3/uL 150-400 [facility] ID Date Data Source [id number] 06/14/2019 10:11:42 AM [facility] Name Value Range Interpretation Code Description Data Tania rce(s) Supporting Document(s) Bicarbonate [Moles/volume] in Serum 22 mmol/L 22-29 [facility] Chloride [Moles/volume] in Serum or Plasma 103 mmol/L 98-107 [facility] Creatinine [Mass/volume] in Serum or Plasma 1.02 mg/dL 0.70-1.20 [facility] Glucose [Mass/volume] in Serum or Plasma 157 mg/dL 70-140 H [facility] Potassium [Moles/volume] in Serum or Plasma 3.8 mmol/L 3.4-5.1 [facility] Sodium [Moles/volume] in Serum or Plasma 134 mmol/L 136-145 L [facility] Urea nitrogen [Mass/volume] in Serum or Plasma 16 mg/dL 8-23 [facility] Anion gap 3 in Serum or Plasma 10 mmol/L 8-15 [facility] Osmolality of Serum or Plasma by calculation 283 mosm/kg 275-300 [facility] Creatinine/Urea nitrogen [Mass Ratio] in Serum or Plasma 15 [facility] Calcium [Mass/volume] in Serum or Plasma 8.0 mg/dL 8.8-10.2 L [facility] Glomerular filtration rate/1.73 sq M pre dicted among non-blacks [Volume Rate/Area] in Serum or Plasma by Creatinine-based formula (MDRD) >6 0 [facility] Glomerular filtration rate/1.73 sq M pre dicted among blacks [Volume Rate/Area] in Serum or Plasma by Creatinine-based formula (MDRD) >60 [facility] ID Date Data Source [id number] 06/14/2019 10:11:42 AM [facility] Value Range Interpretation Code Description Data Tania rce(s) Supporting Document(s) Magnesium [Mass/volume] in Serum or Plasma 1.6 mg/dL 1.6-2.4 [facility] ID Date Data Source [id number] 06/14/2019 10:11:42 AM [facility] Value Range Interpretation Code Description Data Tania rce(s) Supporting Document(s) Phosphate [Mass/volume] in Serum or Plasma 2.3 mg/dL 2.5-4.5 L [facility] ID Date Data Source [id number] 06/14/2019 08:00:16 AM [facility] Value Range Interpretation Code Description Data Tania rce(s) Supporting Document(s) Glucose [Mass/volume] in Capillary blood by Glucometer 120 mg/dL 70- 140 [facility] ID Date Data Source [id number] 06/13/2019 09:06:54 PM [facility] Value Range Interpretation Code Description Data Tania rce(s) Supporting Document(s) Glucose [Mass/volume] in Capillary blood by Glucometer 170 mg/dL 70- 140 H [facility] ID Date Data Source [id number] 06/13/2019 04:29:52 PM [facility] Value Range Interpretation Code Description Data Tania rce(s) Supporting Document(s) Glucose [Mass/volume] in Capillary blood by Glucometer 80 mg/dL 70- 140 [facility] ID Date Data Source [id number] 06/13/2019 01:30:35 PM [facility] Value Range Interpretation Code Description Data Tania rce(s) Supporting Document(s) ED Provider Note [facility] NIWHIr9hAeXDBtHd60/OPJvnJWAbm3VwZPszMAk1UIgnJDGsC8JzQCS5rG6lUGD7HBnFGqMeGMcwEvC3 lbm SaKykCXhGjYBQbRxkDCtLxKHelSxpkoENtBE5VkML7HOFwN98tWZQhTPEuG6EwAMQ7DRB+Zi6ZAYZqlA WoSH4IKaqP5U9wimr4Qn2T8m9YEuYxBv8QfTAq1HMfAQTCA2IKtYr6angJVVwNZHUavJ3p06xnJr3AHl KyZkzh4jFcDxP3Jg57yGGcrDPxyk/EKKV2zxWlhd+/ RomrRlfqH5+p22ae+0DJ3ZaWERt9BftLOGdho0frvmiuuW9207jKpkvUaxaBBt753KgsPoLXz/6fL9Tg Z5JcA1kIrxGE2E7ChjmyzgTVYHcV51PkHxA94RdEZCJECnO+aO0Xzrddu2DswYs8eM+gePjwl8+BkWh7 TsG3pO7xgZw6YQfIMhe2nLHMFFygC10p4CEIgkas6W qSrrS4L3ay1WIbR5pTbCDug2qR+V9o/6Sq9JEFjHip6rKvueqFZ0hY7kVx5HhX9jX1xsm8i52pSa2d5d jk4zv7mfnQjE5DbTkxs/cqmBJ3iHvVKsW6kLPSJpPjFAzP61L/r7QfwM7NnMk7GTO6JR3CwU93mntwpg neVMMKtTswCuNR29/MitPyFdRPXlmlyhJfphR6f2J2 krXRT3iXOYYUv3BTDOHLoQykniQAURpoE42BXOLxbCL+mgiVTXzGZqgtBBD6sJxDD/JxiIAwd2dKUQYh WcCXoqZtgvkdyiLhtQP9OZDuIOFAa+EovPXrm2xCqsABz6rFvQlXrNKa9gZafaCPii3cVjUXSErqppsv +0qZrlVty9zjjVllzzWjzRUsWkqbzTEWnfX6eR38ot hNXoW14NbL2HHInPs7yBwWebdRcYfKaS16dk/E6n1Ip6Jl++ocl2e8cRvbq0HnBRxJ8dMimM7m0Sq7WP 1N52m/01baTvCzJwbJpHOGu5os0PVhuNskcva+keDOMu4OyUwN159ldezqtHe26Tioi+dvTHJx9B+ADIN [file] ID Date Data Source [id number] 06/13/2019 11:55:19 AM [facility] Name Value Range Interpretation Code Description Data Tania rce(s) Supporting Document(s) Glucose [Mass/volume] in Capillary blood by Glucometer 133 mg/dL 70- 140 [facility] ID Date Data Source [id number] 06/13/2019 10:39:35 AM [facility] Name Value Range Interpretation Code Description Data Tania rce(s) Supporting Document(s) Leukocytes [#/volume] in Blood by Automated count 9.0 10*3/uL 4-10 [facility] Erythrocytes [#/volume] in Blood by Automated count 2.86 10*6/uL 4.6- 6.1 L [facility] Hemoglobin [Mass/volume] in Blood 8.9 g/dL 13.5-18 L [facility] Hematocrit [Volume Fraction] of Blood by Automated count 27.1 % 4 1-53 L [facility] Erythrocyte mean corpuscular volume [Entitic volume] by Auto mated count 94.7 fL 80-96 [facility] Erythrocyte mean corpuscular hemoglobin [Entitic mass] by Automated count 31.1 pg 27-33 [facility] Erythrocyte mean corpuscular hemoglobin concentration [Mass/volume] by Automated count 32.8 g/dL [facility].0[facility] width [Ratio] by Automated count 16.4 % 11.5-14.5 H [facility] Platelets [#/volume] in Blood by Automated count 289 10*3/uL 150-400 [facility] Differential cell count method - Blood [facility] Neutrophils/100 leukocytes in Blood by Automated count 85 % [facility] Lymphocytes/100 leukocytes in Blood by Automated count 9 % [facility] Monocytes/100 leukocytes in Blood by Automated count 5 % [facility] Eosinophils/100 leukocytes in Blood by Automated count 1 % [facility] Basophils/100 leukocytes in Blood by Automated count 0 % [facility] Neutrophils [#/volume] in Blood by Automated count 7.63 10*3/uL 1.8-7 .0 H [facility] Lymphocytes [#/volume] in Blood by Automated count 0.80 10*3/uL 1.2-4 .0 L [facility] Monocytes [#/volume] in Blood by Automated count 0.46 10*3/uL 0-0.8 [facility] Eosinophils [#/volume] in Blood by Automated count 0.11 10*3/uL 0-0.5 [facility] Basophils [#/volume] in Blood by Automated count 0.04 10*3/uL 0-0.2 [facility] Nucleated erythrocytes/100 leukocytes [Ratio] in Blood by Automated count 0 /100{WBCs} 0-0 [facility] ID Date Data Source [id number] 06/13/2019 11:11:53 AM [facility] Name Value Range Interpretation Code Description Data Tania rce(s) Supporting Document(s) Bicarbonate [Moles/volume] in Serum 23 mmol/L 22-29 [facility] Chloride [Moles/volume] in Serum or Plasma 103 mmol/L 98-107 [facility] Creatinine [Mass/volume] in Serum or Plasma 1.03 mg/dL 0.70-1.20 [facility] Glucose [Mass/volume] in Serum or Plasma 214 mg/dL 70-140 H [facility] Potassium [Moles/volume] in Serum or Plasma 3.9 mmol/L 3.4-5.1 [facility] Sodium [Moles/volume] in Serum or Plasma 138 mmol/L 136-145 [facility] Urea nitrogen [Mass/volume] in Serum or Plasma 16 mg/dL 8-23 [facility] Anion gap 3 in Serum or Plasma 12 mmol/L 8-15 [facility] Osmolality of Serum or Plasma by calculation 294 mosm/kg 275-300 [facility] Creatinine/Urea nitrogen [Mass Ratio] in Serum or Plasma 16 [facility] Calcium [Mass/volume] in Serum or Plasma 8.5 mg/dL 8.8-10.2 L [facility] Glomerular filtration rate/1.73 sq M pre dicted among non-blacks [Volume Rate/Area] in Serum or Plasma by Creatinine-based formula (MDRD) >6 0 [facility] Glomerular filtration rate/1.73 sq M pre dicted among blacks [Volume Rate/Area] in Serum or Plasma by Creatinine-based formula (MDRD) >60 [facility] ID Date Data Source [id number] 06/13/2019 11:11:53 AM [facility] Name Value Range Interpretation Code Description Data Tania rce(s) Supporting Document(s) Magnesium [Mass/volume] in Serum or Plasma 1.7 mg/dL 1.6-2.4 [facility] ID Date Data Source [id number] 06/13/2019 11:11:53 AM [facility] Name Value Range Interpretation Code Description Data Tania rce(s) Supporting Document(s) Phosphate [Mass/volume] in Serum or Plasma 1.9 mg/dL 2.5-4.5 L [facility] ID Date Data Source [id number] 06/13/2019 07:32:48 AM [facility] Name Value Range Interpretation Code Description Data Tania rce(s) Supporting Document(s) [facility] QPJTWb1uEnKVGfUr01/QFRywRKNbg1VtQPceEBi2TFgcCQUaN8ItARA3sB5iQCJ5KBpJOmYkZHwvPmO1 lbm MqNuxGZaOePIQmUxoOHnCqDBpgRjqlkCAmZN0NnKN1FARaM96iKFWdFACcV5EcFFM4OWL+Yi4CHBAumI YjOU0EUjbQ8Fskbds0GC/vTP+HnXamE8/YcJLuQ+c3/XI8lmBB57mKhj5ZTOQrNhjUlN9zE56PlLwrIp wNwyXZLtoK8gm0T5iOAmL/3autaqm3TtQ/lz+DUEJv DD//ZXusHu4kcA9AAByTqSTV4ScBHaD+PGPMzcukIsv59I3T1DD813QD7TuV7n/7sZbjs5QLcCEZLuwA 567yvL4qC8YjmJNQ5HNKaaElojE6cp0Gac2qdkizi0rEjJqDnbjmf9h6ZHd9FzPibnd8Vi05zUtUBER3 RCwMlPbEnHbpMEN5f9EmIfs2wngA29jawkM1BRgYVo PzfPRkEnczegJMIUW2jFi803eXxrsdWLuhJ2WLJVpK9ZEGggNtNWssBMh/2A0VGBZ1k8XPVLWZlPbLMf VD/izlBUrm/nBdhKR1kCHe2ZLIIq8ElVr9o7wd8NslSHd9ypGayQ6V2uK+Xh0GIgn+yFB9kg77OkKYuf 0q129RNicdxbfuhmK/w85iDvrLZX3s4yG2t0cE63t1 0zcRnDY9tVCwe28VRQdo9WOXBut5puY+EF18tlM2UO1hO/1+Dk6p8vhBrYlPhfTyb9L9nXIXeOzOVlts Jayce/sLQ72DsYJk3YIY/Y4SDHbba3wxLkpaTMryydXcLfsEiLFGkUlRfM0dyh9Rr+JqHgsOfN0Q3NiL5i [file] CyYn8zVVJGNf7+JGpgnESgqJfuPMXILppxLmXHSkAcXS5TEKl= ID Date Data Source [id number] 06/13/2019 08:00:08 AM [facility] Value Range Interpretation Code Description Data Tania rce(s) Supporting Document(s) Glucose [Mass/volume] in Capillary blood by Glucometer 145 mg/dL 70- 140 H [facility] ID Date Data Source [id number] 06/12/2019 09:57:10 PM [facility] Name Value Range Interpretation Code Description Data Tania rce(s) Supporting Document(s) Glucose [Mass/volume] in Capillary blood by Glucometer 177 mg/dL 70- 140 H [facility] ID Date Data Source [id number] 06/12/2019 08:22:25 PM [facility] Value Range Interpretation Code Description Data Tania rce(s) Supporting Document(s) [facility] BXWFDx8qIfUCWwIa72/IQHujJPXot6XdYVumOYd4CMwyYFNfM2RsWCB7jD3xBIJ6ZJaTZoVbHPijVrZ6 lbm [file] rJAm9462+PRODUCT SAFETY HEAD/2fXUKEg70tcMc7Vqjvess8KUr0ELqMvfmzRpf6RzlutsQj1+KKrhZPvXpPA/qGQa0RTL [file] YwTXMsRCBnTVIOISpjVS4FJK5yelI8JU8CpWBmNUKyIQNikRUzZAd5Z17jnFPiAJveDX7XWZC+Sammy+Pg 8SAJGiVNBhARZeYzJxQWPAEcVsY9QtQ2TPm9JkY6KoJB39uUghbzEoBRmmLC2UXL1kLIVuLGHJXV6EgL AahD7guvZ0BGSoLGVICvEuM72jdXGkSOCvWWS9XXGq Dj9OGYRdE3VjboWzuVszllJmMHSiDCLJBC5XRVxfwsTraHCzcXgpNX23zKywRL6DYa9BOdRuCR2fjo3Z xLXxEm0LOFT9AZ8NTJCsNOGiFQAcZIE0YGPjKdVdLLbgOGUaJCCzOAX7OERkDLBdHS0WPiVjDLWiQDy4 SQFkKRFlEZKiav0ZUQBxRYN7DPQ8QRDiSKNoAWYmXB aeHFNjLINlCEV2WWFfFPIbIS5UKbZgVGIqGUT9LEsiDBMwHEQbna9XYHEzMDSvTCE0DwGlPWUsAJZtVI ggLXLsWFE6LEOjVRDwDFFgJF0KKuUaAHNsKRnfPNneFNFoQHYdvm2XVAScAPLvABArCzKyYWZeIZJfFW enKHUgVOFiVeX5NCIgQNAyYA6RJmTyZBCxBYG3PvKh ZNBfVMZyzs1PMHHzBQCdIsQoWsIqPAGjJCNlSOcsZWOrOIE8BIQlVVHrWCAgAS0VRxVjOFVgRVH4Quoa HGAiKOCogi5KEDQvFACtKEawJTMsLSQeSSZqUPgdUPBlFPC2MIYxZVZuHDVwBC7PWnLqAZQaNjJaGGNa RVCnPYMfjg7JCQTxHGU3HUC8PdOpMHShKWZaPSvtPP XoFJGcYJx7NNQcGJNhRS5OGgLsFRXnSsBqPQZgUJXbPKAbao2XSOXuZMU4AOgbNjUfJHVrSMWyOGmpZG MiBZHcAEl6NGYwLMRpVE0UKbKyGAEnMtStFSNzJWHtFGVgfl4DHNXcUAH6ZPKlPcUwMYYdEESzRQnsUP PlXATcKxkvBJNiUJBxQV6NBkOeODIwPeE6PAcfRZJs LYIyyq3CPXBhDOA4KXcePmRuSHGpPFWwXOmdDBHyUYOvSUm2KTAbISObWD7BFiZpOBFtUrOlRODzZWAf KHZdvb6QCCZmHWT9CeYdLiNtRFGgTRNlUAugSJHuGFTsSoydAFCgLANxBA1VNsPpCNKeNvH1NBJzQNWu GSApkn0CUPIhSGWlEle3DbFsNICwQJTzSOtwMJSoPG K4BYyoYRBeTOQbVW4QEzLqAFRcVpa3IXZeJJUtSWUndz2JXKWqZLAxAIJ5WWTnJWGeDCDeHSepCOLoLE U9PjVfBIHdVYEtAO1BZeJuNUFhTuWoIEKtUTVbPGGfgl5QXBQrHYFqXLY7RUQxUMLkBGCcGUebOPQkLT JhLsrqMLUzXPBnJA8DYpCsAAZcRxZ5FiMtOEOzYCAa xb5RVBTeYXGrXBfhVCWsHJUeAVDiRRzgQZVeIHOaHWZmGDQlTOKnGJ2AIjXgGSQbGHFvVDguVTEkOHVm lb5JLXFsAQK3OdbgQZFmHIUpIXYmAUrlNINwLCXuKHM9NIZgWIMnYX0KZdSyWRGlWACpZyPhQFNfSLSa xp9HCZAtKSX1DGYnIEGjDJTyRTBaHCzfNLVwTJZ2Il MdXGWcNTXmLM6CAhNcOAJbTWF2TXFkERLkQNYhxo1QNAEwSSE8PLKxCIEhYVQcLOKxSJobBHNoSOK0ND HsHGXfZWMrZC7AJsIsQIVzPGjsCMbrFRHzVSFqyw0RLOQvEHG4PFt4NGGeNKZwYSHgAYsrEIDpYMTqVw DkRNRwMBRnTP5GDnHkIUCzTnP8JZZzEBEjLCKbyo7N NSSnPND1OtQcJcHiIYQpGFYsMEh7naNrmAFbGJp4IA3PW5WsmqFqTXqEEe0Ze168TML7DVSvYz6SM4tb Ro5oLRIyBBPPNk8KBUy0FRWbKdkoOVq3KCixYPAiQhplOImfXvh7HSQ6CRPvUUD+AZjjUjH2FHZ5SUg0 JPV0ZyX2FSZ5PLVaHDN0OOk6MgQ1Oc8uYVJPKg3+TTiklRIkbWkcBGLHLeNeXvkzBPljYPKEKx0E ID Date Data Source [id number] 06/12/2019 04:32:47 PM [facility] Name Value Range Interpretation Code Description Data Tania rce(s) Supporting Document(s) Glucose [Mass/volume] in Capillary blood by Glucometer 126 mg/dL 70- 140 [facility] ID Date Data Source [id number] 06/12/2019 11:29:44 AM [facility] Name Value Range Interpretation Code Description Data Tania rce(s) Supporting Document(s) Glucose [Mass/volume] in Capillary blood by Glucometer 150 mg/dL 70- 140 [facility] ID Date Data Source [id number] 06/13/2019 03:03:49 PM [facility] Service Cmnt XXX-Imp : Microorganism XXX Cult : NO Methicillin resistant Staphylococcus aureus isolated Name Value Range Interpretation Code Description Data Tania rce(s) Supporting Document(s) ID Date Data Source [id number] 06/12/2019 07:49:30 AM [facility] Name Value Range Interpretation Code Description Data Tania rce(s) Supporting Document(s) Glucose [Mass/volume] in Capillary blood by Glucometer 239 mg/dL 70- 140 [facility] ID Date Data Source [id number] 06/12/2019 05:10:23 AM [facility] Name Value Range Interpretation Code Description Data Tania rce(s) Supporting Document(s) Leukocytes [#/volume] in Blood by Automated count 10.3 10*3/uL 4-10 [facility] Erythrocytes [#/volume] in Blood by Automated count 2.69 10*6/uL 4.6- 6.1 L [facility] Hemoglobin [Mass/volume] in Blood 8.4 g/dL 13.5-18 [facility] Hematocrit [Volume Fraction] of Blood by Automated count 25.2 % 4 1-53 [facility] Erythrocyte mean corpuscular volume [Entitic volume] by Auto mated count 93.5 fL 80-96 [facility] Erythrocyte mean corpuscular hemoglobin [Entitic mass] by Automated count 31.2 pg 27-33 [facility] Erythrocyte mean corpuscular hemoglobin concentration [Mass/volume] by Automated count 33.3 g/dL 32.0-36.0 [facility] distribution width [Ratio] by Automated count 16.3 % 11.5-14.5 [facility] Platelets [#/volume] in Blood by Automated count 239 10*3/uL 150-400 [facility] Differential cell count method - Blood [facility] Neutrophils/100 leukocytes in Blood by Automated count 82 % [facility] Lymphocytes/100 leukocytes in Blood by Automated count 11 % [facility] Monocytes/100 leukocytes in Blood by Automated count 6 % [facility] Eosinophils/100 leukocytes in Blood by Automated count 1 % [facility] Basophils/100 leukocytes in Blood by Automated count 0 % [facility] Neutrophils [#/volume] in Blood by Automated count 8.41 10*3/uL 1.8-7 .0 H [facility] Lymphocytes [#/volume] in Blood by Automated count 1.14 10*3/uL 1.2-4 .0 L [facility] Monocytes [#/volume] in Blood by Automated count 0.57 10*3/uL 0-0.8 [facility] Eosinophils [#/volume] in Blood by Automated count 0.13 10*3/uL 0-0.5 [facility] Basophils [#/volume] in Blood by Automated count 0.02 10*3/uL 0-0.2 [facility] Nucleated erythrocytes/100 leukocytes [Ratio] in Blood by Automated count 0 /100{WBCs} 0-0 [facility] ID Date Data Source [id number] 06/12/2019 05:39:55 AM [facility] Name Value Range Interpretation Code Description Data Tania rce(s) Supporting Document(s) Albumin [Mass/volume] in Serum or Plasma by Bromocresol green (BCG) dye binding method 3.0 g/dL 3.5-5.2 [facility] Bilirubin.total [Mass/volume] in Serum or Plasma 0.4 mg/dL <1.2 [facility] Calcium [Mass/volume] in Serum or Plasma 7.9 mg/dL 8.8-10.2 L [facility] Chloride [Moles/volume] in Serum or Plasma 104 mmol/L 98-107 [facility] Creatinine [Mass/volume] in Serum or Plasma 1.21 mg/dL 0.70-1.20 H [facility] Glucose [Mass/volume] in Serum or Plasma 263 mg/dL 70-140 H [facility] Alkaline phosphatase [Enzymatic activity/volume] in Serum or Plasma 110 U/L 40-129 [facility] Potassium [Moles/volume] in Serum or Plasma 4.1 mmol/L 3.4-5.1 [facility] Protein [Mass/volume] in Serum or Plasma 5.8 g/dL 6.4-8.3 L [facility] Sodium [Moles/volume] in Serum or Plasma 139 mmol/L 136-145 [facility] Aspartate aminotransferase [Enzymatic activity/volume] in Serum or Plasma 31 U/L <40 [facility] Urea nitrogen [Mass/volume] in Serum or Plasma 24 mg/dL 8-23 H [facility] Osmolality of Serum or Plasma by calculation 301 mosm/kg 275-300 H [facility] Creatinine/Urea nitrogen [Mass Ratio] in Serum or Plasma 20 [facility] Bicarbonate [Moles/volume] in Serum 20 mmol/L 22-29 L [facility] Alanine aminotransferase [Enzymatic activity/volume] in Seru m or Plasma 13 U/L <41 [facility] Anion gap 3 in Serum or Plasma 15 mmol/L 8-15 [facility] Albumin/Globulin [Mass Ratio] in Serum or Plasma 1.1 [facility] Glomerular filtration rate/1.73 sq M pre dicted among non-blacks [Volume Rate/Area] in Serum or Plasma by Creatinine-based formula (MDRD) >6 0 [facility] Glomerular filtration rate/1.73 sq M pre dicted among blacks [Volume Rate/Area] in Serum or Plasma by Creatinine-based formula (MDRD) >60 [facility] ID Date Data Source [id number] 06/12/2019 05:39:55 AM [facility] Value Range Interpretation Code Description Data Tania rce(s) Supporting Document(s) Magnesium [Mass/volume] in Serum or Plasma 1.1 mg/dL 1.6-2.4 [facility] ID Date Data Source [id number] 06/12/2019 05:39:55 AM [facility] Value Range Interpretation Code Description Data Tania rce(s) Supporting Document(s) Phosphate [Mass/volume] in Serum or Plasma 2.7 mg/dL 2.5-4.5 [facility] ID Date Data Source [id number] 06/11/2019 09:36:12 PM [facility] Value Range Interpretation Code Description Data Tania rce(s) Supporting Document(s) Glucose [Mass/volume] in Capillary blood by Glucometer 130 mg/dL 70- 140 [facility] ID Date Data Source [id number] 06/11/2019 05:10:45 PM [facility] Value Range Interpretation Code Description Data Tania rce(s) Supporting Document(s) EKG [facility] MVHCWj3xVhRXQiAny6OtNuHuNOTiZP0cler2Z9M7bUQsJ1EtrFRrf6mbK2UfI7KqWRLtXFYTQN9JvAVz jb2 [file] 1Q/gay5lALvORHt0lb82pwfq1ZdD0Z6QlrUF8MQncL5ELC+U/3IBkf0O/+k+tK2Feh8//x//7Z//PRODUCT SAFETY HEAD/n //efP+Dvv3/+5/vw//7P//hf//k//9f/9Z9m5Z//+n/953/6r//Ys63OvzU/mMU+/9tu+5//9X/+j3v5 p46/f/7bP+fR59+///7zv/9hWJSrWC5tMlW8GUVhxi fo+HCRDK4GCtBFBGOnG0PrDa8kLGkMgzfwwlpyQl4r4IDnGYfkm55D1SJbIRnpi39F1CHhSJpqa80T2P EmUXatu98D6SeJo0L6FmMlPe8AzBnTy9LxyeGv9QlrqXn5gilkOx7y5cdMp9v02kXgF4284ToLtl67al arQ6+t4rmHv0s7CoMzEk6BwYhJg3AttvUm8JDUX8ew kxTk2UKYI1byjdDx2HYsJR740+VZd8ZzZq039nEh40l1Bmo2pw6Kid0h47JuB+z2zCw43DZ2qVylFo6N 7gnOu1Q6nyCoKj9i2IxAmmw6UoJqFi+F5DuUh7v0FsCjIl1zDz1rEuKUnRhv8ONiPba3unuDse0o58Wn 53l3Eqz9lu5Hpa8m63Dw16y20cGU5zhCp8u8WiCqZy [file] 3VYEK7NbyBI+8aRORHe+CANSECO+s12NyGBSUs0itYZ6BKdZHlu/eZ/XCRk3gPEw0j/F5jM+dzXtQtYfPP5Ow slNe+WyGNe4hD5/jI7fRe+D1gyNr0P++oj4rUVpOCy 6pE1/XBwF7QcxNwWFo2Ufqejg0elbqgJcbb9zcxgz7PyrYpM7G9OJKnd4y9EsUHY3oO5BxnKhka8+2+G iQtD3E4P31K+V2yh/xWxQW83t9mTcdpzzK/hHdHhjBwMjXLE32pW3Uxco09LtCU0aRai4AaYSosZY0xD vfnS9/m83vV8sHTnOC8UV3CIpUiGBOTwVg0YPbi+c7 9YqSgcg2Vp2hDkr123xc9php0RcnxF1e7M0spbs8F+UPbuYTyzhMDhPuC/GwNGhtK5nCsm8zWw1qeq0z uh1BzAg5ybR1LNRhQWB0nldRRNdWW1IgYUMGnt14aMTStTetcy32MK8Ag+Ba8FjTZ2jff6EZgvkCpUSd E60eL5kWt4qHfRdknUI3HD7R8VJy1vVzwSO1bQsFz/ Ольга/Ольга/Ольга/Ольга/Ольга/nEuyl/cDflD+6luwE0UojVY7hoFzBNfUepbBrYybIONRBAyX0wYYYxrse4V/ Hy/WKC0wScu1+8nE+8h+PYw0S3lP5boqLaFIN8GCgIdHCZrPbzUB/oYhLG95KuS4VTKrkxAZLOe9onRr RzQdJ7VI9ykZtGbWEfj3og9knPKuJUHQH+uIsJzcm6 l+ot4rujeZythd7s3fi4ycb85L8su5BU7iFnH8rqDxs5ihAy0Z7J+yPQE6mHcrwiDfG9t/U79Egek/g8 epZfDbzZW0xIt6mEuYwhnEyf6o1tS92HjyTaRgHZ5OM+T524y/s2wObHp8ZM16jxYfZw2ujwxWM7b61f lt9/+bdYi/5qAcMW1Pw1aL7yaZQeNOudm2EoD8a/kb OLZfg/7+WfY0YM2Igy99FrIC/mFnUsiW/GbVI9cwz2E8/BGqmUZ6F18LbZUKAZi+93x1U/JiPLJNR8us QTknp3GdoL5jxL58YV+1+UvsG4N7zj6xb5aoxU+uP77b66MJk/c1AVQoUgZ4BbIJfuw3y4jYD7LNHRNp Cl6SXxXCkEi5rBoYqdne+4aD013ekKFvpG48eZdv/f eeXIE3iD34mZ+Jsssc6+GdPVFylnSGQm7Di3ARiak4OSzbj+FloLJmnb89JBYxHdPfed3b6vHFQ0MwkL 30KuoU7f41Dg/o8OwCLCfmCd2dVyri+udWlQJoXZJU9q0dhH1GHcb+gGsoM9zg+FNbpYO25EF5bQb7Ln bYf9tWSeV1oY5MfVhTSzWqrA8Gbz9+/OPkkjOecTnf DJuxfJcBB56lE6dwziiW6jRySJFViZhvKQPVASR/qi+UieOhHtLXUi+eufemia/JQsFnLxaP7x5QzGX4J0dI [file] 3/7mu+8//f6Lj19/8YsvP//0q4/ovg6zM254+92X3//jz/7bf/v877/67eTq37qnhgg1x51/3hAxF29/ ++OAM3o27V2j79Wz5ushhy1+JhZn3ZI+xs820e7wp/ rt99+/Va1bC81/g68xUs9sLgfto85Jo/vZf7dzbcT4//Xx6de/+Pjs0++++Oo+4afffv/lLz/9/Pv/oN m1c196++2Xf/+r7z8+++3Ke6s638r3p065+a+ipf/gP5I3/ulnX3/z7a9fF/PF53//6879fp60G73/8/ Gbb7/44ctvfvvd/qecYz721pYab5eh6x/5497x4I/6 /C9//pc//PVPv//nj//xfz4+/18//vl//vHHP/yXj8/++ocf//zxj3/38U//6Sb5/ae//ttPkr7Ese54 n31k0accu4O3+M2v/65ctnVJ7nIqv/7083/yueuOitW6yV/7VBv5ZsXxhP+/+v8A+kviHovdKZ94bWf5 BlFu251ZHRf2mUxzFz+/+tQyVwlsa10C5+F1cJc2cD 0/wN//y+//+lfvr08+Rv014KsZU81G3m+/3Wh7+5d12Im3Y60bJa1Ab6tLoo3Ca33975bdXGcMLM9rNv bD7//8b3/38dcf/+33b62/voIfURPn/tGf+Xy7f1S792+2faDffPvxhz//2+//+v/8+Mf/oPHTke+N3/ 0nGVe9ahMK/Idvv/v45//9uvQ//UIGA08wQ2t4xJ0l 4sH+4fuf/8P3v+Sz4ohUrvS+7uS5h553O0k22t/9pcM6hw/qKNDsnF5xja/0m599+9YgG692l9//r//+ aWff57bJ/RtgX32864D1aBxaspjfs/7T3/7k1+dB/NoUH6286u9Sgo2c//7dj//6Gms/+f/y8Wa78o0/ /f/zkGb74//49/99uvDbv/ivL706sv8v/ODc7Vd/+d 5sBC8GQtlWbhk19//uf/38Q096Au0lo/zqm2++/XhN67/85U9+7/wd8ft//onDbEowR61px9/qNkB1cG kN/ubH//n7D/y5n8174AYbZUCeDfZNqp9wC/i0yD981GunL7oq4VxXp/2dxzgxfTxNR640GB612CSTx8 7++Te//kv815kactcfeaU4//5/fepIuwplbmRzdHJl YK2PIX7se4ByJfU9RQOgn9NbEKygTPj8pQNoKXxjguSrj3WlmqwyG6Mtf4TuYbOyXJFnQpToQkl3YUPe JzG1pSWnObEaVYNjN6DkZZRvLhD7RiUtDFDUNH7NLMOwscFbPgCqDWV+FuWrAA1xkgyqBIHfs5CfTGig WGxeXRDoT9K8fIogRFViM4IquZ83YXEfM4SjxtW1NL O0KAAaSgGeQUBstHJbYAGvIBE+OmZqZP5umjjzPQZnz8DlWFfxWLN4pZ9vTRiWWTZETMlMZWopOmQ4h6 2lnyWMEGYgADGzIC2SzeBxqCfsjfFztRAoFMB6JqCtCHOmDDIdZsFsZJFQEZKdUQXvQWApNEVpF9WaxZ kdNFcBJTTXSNkSIKvcFtYsp3V0NKJmvkTqCA8CXSVn OBgDOeKPJJE8UlAgSbycAD2UvCJwSDF7PCmBYDNJFKhTXKfzYeTka4M5LEUjD3XzGHHvrhSpNBPRXQou GvvpZS7xgIqkqvguB4RzqOTwHRJEKIThVLWzONRxIUMwF8Kcg2A9S0VrWQoJMUDWTFjGTOelTzZ3f18k ayBTZXJpZXMpID4+WW4if3InVn1DKTHcUH1ynjy8KC 9YlKXtBP3SDQbwmlUpT5ykjtLhLsLkDNQDOT5jX6BrhD82JND+DxHrCB4axqd3kvRkXnEkDBIwOWMxCI YtJUjjPAOuLYZcOFPgYAM7DSM1WHGhQwJuZBSqOly2NuQeGIGdYDYljmOZYKFyOJM9USO3FqTqYAAbYP CpUZhaSJNkEWW7TQT1RFJgMXRdUA2eUtTtWJPcZXAd QEEsRhX8ZxIrEjUQZZGpHEPmKVGjNzBeQFRgPVDvJNriUBTxLFFrCHp5OWWqJVQqWI7dLiNqDHBoDHFt GOHbQDRnTIRfcuELAEBbLYRuXUK4GWYbURYnBNLwMLeqPGIuCARoZFV2VEYoIVEdJC0mBmKoHDHfFEG1 StHbEGVuCGBxgsKZYRDnJLJuLTW2XRNwFZLmKFToKK yiTTHzBJXbGwM5AHKwNARbBE1qEkDxIFUjFAH7PGDgUMWkMBOwyaMMYAYfBCAdTIs0SuAwSEHhAVGeMT ijEJToFWTkOLznPOXsBZLqTI7jOfRyWHVfHUZzVVXyXCKgPBTlxoQSWKJsYSBdMZD4ZtVhWZQdHOCxXM mnJDGoAYZoBSJ4DSKnWSCjUE4hHkExPNUqXilsLHja HOVpUFYgdlIUXHGsHMNcXYThQWPpHFIqMBNkLOhdGYOxTGVqRdP3CNUqTGNtPF0mQxBtNEWbOHN7QIWe HAZaSHBytgKIMEWfMFOxHVXbUTK2CPDmEJIcZEx0aoVhzXLdFla5Tw1YtLbwBZJ1Sx6FlvIuVAOsHYIS Zz5Av571FBSwZAOUBha+SdxueRBemGnxISDYKtt4EZeXMJTWP5E= ID Date Data Source [id number] 06/11/2019 04:36:37 PM [facility] Name Value Range Interpretation Code Description Data Tania rce(s) Supporting Document(s) Glucose [Mass/volume] in Capillary blood by Glucometer 256 mg/dL 70- 140 H [facility] ID Date Data Source [id number] 06/11/2019 11:11:52 AM [facility] Name Value Range Interpretation Code Description Data Tania rce(s) Supporting Document(s) Glucose [Mass/volume] in Capillary blood by Glucometer 185 mg/dL 70- 140 H [facility] ID Date Data Source [id number] 06/11/2019 08:30:11 AM [facility] Value Range Interpretation Code Description Data Tania rce(s) Supporting Document(s) Glucose [Mass/volume] in Capillary blood by Glucometer 190 mg/dL 70- 140 [facility] ID Date Data Source [id number] 06/11/2019 06:53:12 AM [facility] XR SPINE L-S 2-3 VIEWS PORT-OR [id number] L RESULTThis statement is intended for documentation [...] Never Smoker completed Never S moker eCW1 ([facility]) Smoking 08/05/2020 12:00:00 AM EST Never Smoker completed Never S moker eCW1 ([facility]) Smoking 07/16/2020 12:00:00 AM EST Never Smoker completed Never S moker eCW1 ([facility]) Smoking 06/27/2020 12:00:00 AM EST Never Smoker completed Never S moker eCW1 ([facility]) Smoking 06/20/2020 12:00:00 AM EST Never Smoker completed Never S moker eCW1 ([facility]) Smoking 05/20/2020 12:00:00 AM EST Never Smoker completed Never S moker eCW1 ([facility]) Smoking 05/20/2020 12:00:00 AM EST Never Smoker completed Never S moker eCW1 ([facility]) Smoking 05/20/2020 12:00:00 AM EST Never Smoker completed Never S moker eCW1 ([facility]) Smoking 05/20/2020 12:00:00 AM EST Never Smoker completed Never S moker eCW1 ([facility]) Smoking 04/05/2020 12:00:00 AM EDT Never Smoker completed Never S moker eCW1 ([facility]) Smoking 03/26/2020 12:00:00 AM EDT Never Smoker completed Never S moker eCW1 ([facility]) Smoking 03/26/2020 12:00:00 AM EDT Never Smoker completed Never S moker eCW1 ([facility]) Alcohol intake 03/24/2020 12:00:00 AM EDT Ex-drinker (finding) comp leted Ex- drinker (finding) [facility] Tobacco use and exposure 03/24/2020 12:00:00 AM EDT Never used co mpleted Never used [facility] Smoking 03/24/2020 12:00:00 AM EDT Never smoker completed Never s [facility] Smoking 01/15/2020 12:00:00 AM EDT Patient is a former smoker completed Patient is a former smoker [facility] ([facility] ) Smoking 01/09/2020 12:00:00 AM EDT Never Smoker completed Never S moker eCW1 ([facility]) Smoking 01/09/2020 12:00:00 AM EDT Never Smoker completed Never S moker eCW1 ([facility]) Smoking 12/08/2019 12:00:00 AM EDT Never Smoker completed Never S moker eCW1 ([facility]) Smoking 12/08/2019 12:00:00 AM EDT Never Smoker completed Never S moker eCW1 ([facility]) Smoking 12/08/2019 12:00:00 AM EDT Never Smoker completed Never S moker eCW1 ([facility]) Smoking 12/08/2019 12:00:00 AM EDT Never Smoker completed Never S moker eCW1 ([facility]) Smoking 12/08/2019 12:00:00 AM EDT Never Smoker completed Never S moker eCW1 ([facility]) Smoking 11/16/2019 12:00:00 AM EDT Never Smoker completed Never S moker eCW1 ([facility]) Alcohol intake 09/24/2019 12:00:00 AM EDT Ex-drinker (finding) comp leted Ex- drinker (finding) [facility] Smoking 09/24/2019 12:00:00 AM EDT Never smoker completed Never s [facility] Alcohol intake 07/30/2019 12:00:00 AM EST Ex-drinker (finding) comp leted Ex- drinker (finding) [facility] Smoking 07/30/2019 12:00:00 AM EST Never smoker completed Never s [facility] Alcohol intake 07/24/2019 12:00:00 AM EST Ex-drinker (finding) comp leted Ex- drinker (finding) [facility] Smoking 07/24/2019 12:00:00 AM EST Never smoker completed Never s [facility] Alcohol intake 07/10/2019 12:00:00 AM EST Ex-drinker (finding) comp leted Ex- drinker (finding) [facility] Smoking 07/10/2019 12:00:00 AM EST Never smoker completed Never s [facility] Alcohol intake 06/26/2019 12:00:00 AM EST Ex-drinker (finding) comp leted Ex- drinker (finding) [facility] Smoking 06/26/2019 12:00:00 AM EST Never smoker completed Never s [facility] Alcohol intake 06/12/2019 12:00:00 AM EST Ex-drinker (finding) comp leted Ex- drinker (finding) [facility] Smoking 06/12/2019 12:00:00 AM EST Never smoker completed Never s [facility] Vital Signs ID Date Data Source [id number] Name Value Range Interpretation Code Description Data Source(s) Diastolic blood pressure 90 mm[Hg] 90 mm[Hg] eCW1 ([facility]) Systolic blood pressure 175 mm[Hg] 175 mm[Hg] e CW1 ([facility]) Body temperature 95.9 [degF] 95.9 [degF] eCW1 ( [facility]) Respiratory rate 20 /min 20 /min eCW1 ([facility]) Heart rate 78 /min 78 /min eCW1 ([facility]) Body mass index (BMI) [Ratio] 27.06 kg/m2 27.06 kg/m2 W1 ([facility]) Body height 68 [in_i] 68 [in_i] eCW1 ([facility]) Body weight 178 [lb_av] 178 [lb_av] eCW1 ([facility]) Diastolic blood pressure 74 mm[Hg] 74 mm[Hg] eCW1 ([facility]) Systolic blood pressure 150 mm[Hg] 150 mm[Hg] e CW1 ([facility]) Respiratory rate 18 /min 18 /min eCW1 ([facility]) Heart rate 70 /min 70 /min eCW1 ([facility]) Body mass index (BMI) [Ratio] 26.30 kg/m2 26.30 kg/m2 eCW1 ([facility]) Body height 68 [in_i] 68 [in_i] eCW1 ([facility]) Body weight 173 [lb_av] 173 [lb_av] eCW1 ([facility]) Diastolic blood pressure 77 mm[Hg] 77 mm[Hg] eCW1 ([facility]) Systolic blood pressure 185 mm[Hg] 185 mm[Hg] e CW1 ([facility]) Body temperature 97.3 [degF] 97.3 [degF] eCW1 ( [facility]) Respiratory rate 18 /min 18 /min eCW1 ([facility]) Heart rate 70 /min 70 /min eCW1 ([facility]) Body mass index (BMI) [Ratio] 26.30 kg/m2 26.30 kg/m2 eCW1 ([facility]) Body height 68 [in_i] 68 [in_i] eCW1 ([facility]) Body weight 173 [lb_av] 173 [lb_av] eCW1 ([facility]) Diastolic blood pressure 85 mm[Hg] 85 mm[Hg] eCW1 ([facility]) Systolic blood pressure 167 mm[Hg] 167 mm[Hg] e CW1 ([facility]) Body temperature 97.9 [degF] 97.9 [degF] eCW1 ( [facility]) Respiratory rate 18 /min 18 /min eCW1 ([facility]) Heart rate 78 /min 78 /min eCW1 ([facility]) Body mass index (BMI) [Ratio] 26.15 kg/m2 26.15 kg/m2 eCW1 ([facility]) Body height 68 [in_i] 68 [in_i] eCW1 ([facility] [facility]) Body weight 172 [lb_av] 172 [lb_av] eCW1 ([facility]) Diastolic blood pressure 74 mm[Hg] 74 mm[Hg] eCW1 ([facility]) Systolic blood pressure 152 mm[Hg] 152 mm[Hg] e CW1 ([facility]) Body temperature 96.6 [degF] 96.6 [degF] eCW1 ( [facility]) Respiratory rate 20 /min 20 /min eCW1 ([facility]) Heart rate 67 /min 67 /min eCW1 ([facility]) Body mass index (BMI) [Ratio] 25.85 kg/m2 25.85 kg/m2 eCW1 ([facility]) Body height 68 [in_i] 68 [in_i] eCW1 ([facility]) Body weight 170 [lb_av] 170 [lb_av] eCW1 ([facility]) Diastolic blood pressure 120 mm[Hg] 120 mm[Hg] eCW1 ([facility]) Systolic blood pressure 210 mm[Hg] 210 mm[Hg] e CW1 ([facility]) Body temperature 96.8 [degF] 96.8 [degF] eCW1 ( [facility]) Respiratory rate 20 /min 20 /min eCW1 ([facility]) Heart rate 91 /min 91 /min eCW1 ([facility]) Body mass index (BMI) [Ratio] 25.69 kg/m2 25.69 kg/m2 eCW1 ([facility]) Body height 68 [in_i] 68 [in_i] eCW1 ([facility]) Body weight 169 [lb_av] 169 [lb_av] eCW1 ([facility]) Diastolic blood pressure 75 mm[Hg] 75 mm[Hg] eCW1 ([facility]) Systolic blood pressure 153 mm[Hg] 153 mm[Hg] e CW1 ([facility]) Body temperature 98.3 [degF] 98.3 [degF] eCW1 ( [facility]) Respiratory rate 18 /min 18 /min eCW1 ([facility]) Heart rate 82 /min 82 /min eCW1 ([facility]) Body mass index (BMI) [Ratio] 25.54 kg/m2 25.54 kg/m2 eCW1 ([facility]) Body height 68 [in_i] 68 [in_i] eCW1 ([facility]) Body weight 168 [lb_av] 168 [lb_av] eCW1 ([facility]) [place] body weight 166 [lb_av] 166 [lb_av] MEDEN T ([facility]) Body mass index (BMI) [Ratio] 24.5 kg/m2 24.5 k g/m2 MEDENT ([facility]) Body weight 171.00 [lb_av] 171.00 [lb_av] MEDEN T ([facility]) Body height 70 [in_i] 70 [in_i] MEDENT ([facility]) 5'10" Respiratory rate 12 /min 12 /min [facility] ( [facility]) Body weight 78.076 kg 78.076 kg [facility] ([facility]) Body mass index (BMI) [Ratio] 24.7 kg/m2 24.7 k g/m2 [facility] ([facility]) Body weight 172.12 [lb_av] 172.12 [lb_av] MEDEN T ([facility]) Body height 70 [in_i] 70 [in_i] [facility] 5'10" Diastolic blood pressure 73 mm[Hg] 73 mm[Hg] [facility] ([facility]) Systolic blood pressure 152 mm[Hg] 152 mm[Hg] [facility] Body weight 77.736 kg 77.736 kg [facility] ([facility]) Body mass index (BMI) [Ratio] 24.6 kg/m2 24.6 k g/m2 [facility] ([facility]) Body weight 171.38 [lb_av] 171.38 [lb_av] MEDEN T ([facility]) Body height 70 [in_i] 70 [in_i] [facility] 5'10" Diastolic blood pressure 82 mm[Hg] 82 mm[Hg] [facility] ([facility]) Systolic blood pressure 142 mm[Hg] 142 mm[Hg] [facility] Diastolic blood pressure mm[Hg] eCW1 ([facility]) Systolic blood pressure 142 mm[Hg] 142 mm[Hg] e CW1 ([facility]) Body temperature 98.2 [degF] 98.2 [degF] eCW1 ( [facility]) Respiratory rate 17 /min 17 /min eCW1 ([facility]) Heart rate 65 /min 65 /min eCW1 ([facility]) Body mass index (BMI) [Ratio] 25.54 kg/m2 25.54 kg/m2 eCW1 ([facility]) Body height 68 [in_i] 68 [in_i] eCW1 ([facility]) Body weight 168 [lb_av] 168 [lb_av] eCW1 ([facility]) [place] body weight 166 [lb_av] 166 [lb_av] MEDEN T ([facility] ) Body mass index (BMI) [Ratio] 24.5 kg/m2 24.5 k g/m2 MEDENT ([facility] ) Body weight 171.00 [lb_av] 171.00 [lb_av] MEDEN T ([facility], ) Body height 70 [in_i] 70 [in_i] MEDENT ([facility], ) 5'10" Respiratory rate 12 /min 12 /min MEDENT ( [facility] ) Heart rate 64 /min 64 /min MEDENT ([facility] ) Diastolic blood pressure 50 mm[Hg] 50 mm[Hg] MEDENT ([facility] ) Systolic blood pressure 140 mm[Hg] 140 mm[Hg] M EDENT ([facility], ) Diastolic blood pressure mm[Hg] eCW1 ([facility]) Systolic blood pressure 122 mm[Hg] 122 mm[Hg] e CW1 ([facility]) Body temperature 97.7 [degF] 97.7 [degF] eCW1 ( [facility]) Respiratory rate 18 /min 18 /min eCW1 ([facility]) Heart rate 65 /min 65 /min eCW1 ([facility]) Body mass index (BMI) [Ratio] 26.45 kg/m2 26.45 kg/m2 eCW1 ([facility]) Body height 68 [in_us] 68 [in_us] eCW1 ([facility]) Body weight Measured 174 [lb_av] 174 [lb_av] eC W1 ([facility]) Diastolic blood pressure 78 mm[Hg] 78 mm[Hg] eCW1 ([facility]) Systolic blood pressure 132 mm[Hg] 132 mm[Hg] e CW1 ([facility]) Body temperature 97.5 [degF] 97.5 [degF] eCW1 ( [facility]) Respiratory rate 18 /min 18 /min eCW1 ([facility]) Heart rate 96 /min 96 /min eCW1 ([facility]) Body mass index (BMI) [Ratio] 22.04 kg/m2 22.04 kg/m2 eCW1 ([facility]) Body height 68 [in_us] 68 [in_us] eCW1 ([facility]) Body weight Measured 145 [lb_av] 145 [lb_av] eC W1 ([facility]) Deprecated Oxygen saturation in Capillary blood by Oximetry 99 % 99 % eCW1 ([facility]) Respiratory rate 16 /min 16 /min eCW1 ([facility]) Heart rate 89 /min 89 /min eCW1 ([facility]) Body temperature 97.9 [degF] 97.9 [degF] eCW1 ( [facility]) Body mass index (BMI) [Ratio] 24.08 kg/m2 24.08 kg/m2 eCW1 ([facility]) Body weight Measured 158.4 [lb_av] 158.4 [lb_av ] eCW1 ([facility]) Body height 68 [in_us] 68 [in_us] eCW1 ([facility]) ID Date Data Source [id number] 03/24/2020 07:15:41 AM [facility] Name Value Range Interpretation Code Description Data Source(s) WEIGHT RECORDED 167 lb 167 lb [facility] Body height Measured 66 in 66 in [facility] ID Date Data Source [id number] 06/26/2019 08:43:26 AM [facility] Name Value Range Interpretation Code Description Data Source(s) WEIGHT RECORDED 173 lb 173 lb [facility] Body height Measured 70 in 70 in [facility] ID Date Data Source [id number] 08/07/2019 07:54:51 AM [facility] Name Value Range Interpretation Code Description Data Source(s) WEIGHT RECORDED 173 lb 173 lb [facility] Body height Measured 70 in 70 in [facility] Patient Treatment Plan of Care Planned Activity Planned Date Details Description Data Source (s) Sulfamethoxazole 800 MG / Trimethoprim 160 MG Oral Tab let [Bactrim] 04/05/2020 12:00:00 AM [place] [id number] ([facility]) Finasteride 5 MG Oral Tablet 03/07/2020 12:00:00 AM [facility] Finasteride 5 MG Oral Tablet [Proscar] 01/09/2020 12:00:00 AM [place] [address] ([facility]) Finasteride 5 MG Oral Tablet [Proscar] 01/09/2020 12:00:00 AM [place] [id number] ([facility]) atorvastatin 40 MG Oral Tablet 12/25/2019 12:00:00 AM [facility] apixaban 2.5 MG Oral Tablet [Eliquis] 12/20/2019 12:00:00 AM [facility] Amlodipine 10 MG Oral Tablet 12/18/2019 12:00:00 AM [facility] Cephalexin 250 MG 12/15/2019 01:00:00 AM EDT [facility]) MetFORMIN HCl 1000 MG 11/26/2019 01:00:00 AM EDT [facility]) Tamsulosin HCl 0.4 MG 11/26/2019 01:00:00 AM EDT [facility]) Atorvastatin Calcium 40 MG 11/26/2019 01:00:00 AM EDT [facility]) Pravastatin Sodium 20 MG 11/26/2019 01:00:00 AM EDT [facility]) Losartan Potassium-HCTZ 100-12.5 MG 11/26/2019 01:00:00 AM EDT [facility] ([facility]) Iron (Ferrous Sulfate) 142 (45 Fe) MG 11/26/2019 01:00:00 AM EDT [facility] ([facility]) Omeprazole 20 MG 11/26/2019 01:00:00 AM EDT [facility] ([facility]) Daily Multivitamin 11/26/2019 01:00:00 [facility] B12 Folate 800-800 MCG 11/26/2019 01:00:00 AM EDT [facility] ([facility]) Insulin Detemir 100 UNIT/ML 11/26/2019 01:00:00 AM [facility] Eliquis 2.5 MG 11/26/2019 01:00:00 AM [facility]) AmLODIPine Besylate 10 MG 11/22/2019 01:00:[facility] Cephalexin 500 MG Oral Capsule [Keflex] 08/23/2019 12:00:00 AM [facility] eCW1 ([facility]) Tamsulosin hydrochloride 0.4 MG Oral Capsule 07/17/2019 12:00:00 AM [facility]. Devices (DURABLE MEDICAL EQUIPMENT SEE SIG) XX M [facility] 07/03/2019 12:00:00 AM [facility]spital Ibuprofen 200 MG 06/26/2019 12:00:00 AM [facility]) [facility]. Devices (DURABLE MEDICAL EQUIPMENT SEE SIG) XX M [facility] 06/23/2019 12:00:00 AM [facility] ospital Tylenol Extra Strength 500 MG 06/20/2019 12:00:00 AM EST [facility]) Tamsulosin HCl 0.4 MG 06/16/2019 12:00:00 AM [facility] Omeprazole 20 MG 06/16/2019 12:00:00 AM [facility]) Pravastatin Sodium 20 MG 06/16/2019 12:00:00 AM [facility] Ferrous Sulfate 325 (65 Fe) MG 06/16/2019 12:00:00 AM [facility] Losartan Potassium 100 MG 06/16/2019 12:00:00 AM [facility] ([facility]) MetFORMIN HCl 1000 MG 06/16/2019 12:00:00 AM [facility] ([facility]) Senna 8.6 MG 06/16/2019 12:00:00 AM [facility] ([facility]) Heparin Lock Flush 100 UNIT/ML 06/16/2019 12:00:00 AM [facility] ([facility]) Normal Saline Flush 0.9 % 06/16/2019 12:00:00 AM [facility]) CefTRIAXone Sodium 2 GM 06/16/2019 12:00:00 AM [facility]) Vancomycin HCl 1.5 GM 06/16/2019 12:00:00 AM [facility]) Lantus SoloStar 100 UNIT/ML 06/16/2019 12:00:00 AM [facility]) Normal Saline Flush 0.9 % Intravenous Solution 06/16/2019 12:00:[address] [facility] 3 ML heparin sodium, porcine 100 UNT/ML Prefilled Syri nge 06/16/2019 12:00:00 AM [facility]spital Tamsulosin hydrochloride 0.4 MG Oral Capsule 06/16/2019 12:00:[address] [facility] POLYETHYLENE GLYCOL 3350 142 MG/ML Oral Solution 06/16/2019 12:00:[address] [facility] Ceftriaxone 2000 MG Injection 06/16/2019 12:00:[address] [facility] Vancomycin HCl 1.5 GM Intravenous Solution Reconstitut ed (VANCOCIN) 06/16/2019 12:00:00 AM [facility] Tamsulosin hydrochloride 0.4 MG Oral Capsule 06/16/2019 12:00:[address] [facility] POLYETHYLENE GLYCOL 3350 142 MG/ML Oral Solution 06/16/2019 12:00:[address] [facility] Tamsulosin hydrochloride 0.4 MG Oral Capsule 06/16/2019 12:00:[address] [facility] [place] POLYETHYLENE GLYCOL 3350 142 MG/ML Oral Solution 06/16/2019 12:00:[address] [facility] [place] sennosides, SNF 8.6 MG Oral Tablet 06/15/2019 12:00:[address] [facility] ferrous sulfate 325 MG Oral Tablet 06/15/2019 12:00:[address] [facility] Vancomycin HCl 1500 MG/300ML Intravenous Solution (VAN COCIN) 06/15/2019 12:00:00 AM [facility] Ceftriaxone 2000 MG Injection 06/15/2019 12:00:[address] [facility] Acetaminophen 325 MG Oral Tablet 06/15/2019 12:00:[address] [facility] [place] sennosides, SNF 8.6 MG Oral Tablet 06/15/2019 12:00:[address] [facility] ferrous sulfate 325 MG Oral Tablet 06/15/2019 12:00:[address] [facility] ferrous sulfate 325 MG Oral Tablet 06/15/2019 12:00:[address] [facility] ferrous sulfate 325 MG Oral Tablet 06/15/2019 12:00[facility] 06/15/2019 12:00:[address] [facility] Hydralazine Hydrochloride 20 MG/ML Injectable Solution 06/14/2019 07:49:21 AM [facility]spital Bisacodyl 10 MG Rectal Suppository 06/13/2019 10:27:[address] [facility] sodium chloride (preservative free) 0.9 % flush 10 mL 06/13/2019 10:26:31 AM [facility]spital Glucose 0.4 MG/MG Oral Gel 06/11/2019 02:11:[address] [facility] dextrose 50 % IV solution 25 mL 06/10/2019 11:20:[address] [facility] Glucagon 1 MG Injection 06/10/2019 11:20:[address] [facility] Glucose 0.4 MG/MG Oral Gel 06/10/2019 11:20:[address] [facility] Pravastatin Sodium 20 MG Oral Tablet [facility] Acetaminophen 325 MG Oral Tablet [facility] meloxicam 15 MG Oral Tablet [facility] tramadol hydrochloride 50 MG Oral Tablet [facility]
== END 2020-08-10 05:41 | disposition home or self-care (01) ==
LOC: M ED 04:27
DX: T83.091A Other mechanical complication of indwelling urethral catheter, initial encounter (principal); E11.9 Type 2 diabetes mellitus without complications; I10 Essential (primary) hypertension; E78.5 Hyperlipidemia, unspecified; Z79.01 Long term (current) use of anticoagulants; Z79.4 Long term (current) use of insulin; Z79.899 Other long term (current) drug therapy

== ENCOUNTER 2020-08-11 03:51 | Emergency (ER) | payer MEDICARE ==
[~2020-08-11] VITALS: Ht 167.6 cm; Wt 79.1 kg
--- OUTSIDE RECORDS SUMMARY | 2020-08-11 04:00 | CCD ---
Author Author [facility] Organization [facility] Address Unknown Phone Unavailable Care Team Providers Care Teacher Home Therapy Name Role Phone Shanelle Barrera MD Unavailable [...] Unavailable Shanelle Barrera MD Unavailable Unavailable Shanelle aBrrera MD Unavailable Unavailable Shanelle Barrera MD Unavailable Unavailable Shanelle Barrera MD Unavailable Unavailable Shanelle Barrera MD Unavailable Unavailable Shanelle Barrera MD Unavailable Unavailable Shanelle aBrrera MD Unavailable Unavailable Shanelle Barrera MD Unavailable Unavailable Shanelle Barrera MD Unavailable Unavailable Shanelle Barrera MD Unavailable Unavailable Shanelle Barrera MD Unavailable Unavailable Shanelle Barrera MD Unavailable Unavailable Shanelle Barrera MD Unavailable Unavailable Shanelle Barrera MD Unavailable Unavailable Shanelle Barrera MD Unavailable Unavailable Shanelle Barrera MD Unavailable Unavailable Shanelle Barrear MD Unavailable Unavailable Shanelle Barrera MD Unavailable [...] Unavailable Shanelle Barrera MD Unavailable Unavailable Shanelle Barrrea MD Unavailable Unavailable Shanelle Barrera MD Unavailable [...] A DEMETRIUS MD Unavailable Unavailable EMERTON, A DEMETRUIS MD Unavailable Unavailable EMERTON, A DEMETRIUS MD [...] Unavailable ROGER, BENJAMIN PA-C Unavailable Unavailable ROGER, EBNJAMIN PA-C Unavailable Unavailable ROGER, BENJAMIN PA-C Unavailable [...] Unavailable Unavailable Juanpablo Jones MD Unavailable Unavailable Juanpabol Jones MD Unavailable Unavailable Juanpablo Jones MD [...] is protected by Article 27-F of the [facility] Public Health law. If you continue you may have access to information: Regarding HIV / AIDS; Provided by facilities licensed or operated by the [facility] Office of Mental Health; or Provided by the [facility] Office for People With Developmental Disabilities. If such information is present, then the following [facility] mandated warning applies: This information has [...] law may result in a fine or mcfp sentence or both. A general authorization for the release of medical or other information is NOT sufficient authorization for further disc losure. Allergies and Adverse Reactions Type Description Substance Reaction Status Data Source(s ) Drug Class NO KNOWN ALLERGIES NO KNOWN ALLERGIES [facility] No Known Drug Allergies No Known Drug Allergies No Known Drug Aller gies active NETSAVOCA ([facility] ) Encounters Encounter Providers Location Date Indications Data Source(s ) Outpatient Attender: Yosef Barrera MD 03/16/2022 12:00:00 AM ED [facility] Unknown [address] [facility] [facility] [address] 08/05/2020 12:00:00 AM EST eCW1 ([facility]) Outpatient [address] [facility] [address] 08/05/2020 12:00:00 AM EST eCW1 ([facility]) Outpatient [address] [facility] [address] 07/16/2020 12:00:00 AM EST eCW1 ([facility]) Outpatient [address] [facility] [address] 06/27/2020 12:00:00 AM EST eCW1 ([facility]) Outpatient [address] [facility] [address] 06/20/2020 12:00:00 AM EST eCW1 ([facility]) Unknown [address] [facility] [address] 05/29/2020 12:00:00 AM EST eCW1 ([facility]) Unknown [address] [facility] [address] 05/29/2020 12:00:00 AM EST eCW1 ([facility]) Outpatient [address] [facility] [address] 05/20/2020 12:00:00 AM EST eCW1 ([facility]) Unknown [address] [facility] [address] 05/20/2020 12:00:00 AM EST eCW1 ([facility]) Outpatient [address] [facility] [address] 04/05/2020 12:00:00 AM EDT eCW1 ([facility]) Outpatient [address] [facility] [address] 03/26/2020 12:00:00 AM EDT eCW1 ([facility]) Unknown [address] [facility] [address] 03/26/2020 12:00:00 AM EDT eCW1 ([facility]) Office Visit Attender: Andi Jones MD Main office - [facility] 03/25/2020 01:15:00 PM EDT MEDENT ([facility]) Outpatient Attender: Yosef Barrera MD [id number] 03/11/2020 12:00:00 AM EDT Discitis, unspecified, lumbar [facility] Discitis, unspecified, lumbar region Outpatient Referrer: Yosef Barrera MD 03/11/2020 12:00:00 AM EDT Discitis, unspecified, lumbar region [facility] Discitis, unspecified, lumbar region Outpatient Attender: Marii Calderon/Hal/Anthony/ Abbey 01/15/2020 03:15:00 PM EDT MEDENT ([facility]) Outpatient [address] [facility] [address] 01/09/2020 12:00:00 AM EDT eCW1 ([facility]) Unknown [address] [facility] [address] 01/09/2020 12:00:00 AM EDT [facility]CW1 [facility] Outpatient Attender: Andi Jones MD Main office [facility] 12/25/2019 09:00:00 AM EDT MEDENT ([facility], ) [facility] [address] [facility] [address] 12/19/2019 12:00:00 AM EDT eCW1 ([facility]) Unknown [address] [facility] [address] 12/12/2019 12:00:00 AM EDT eCW1 ([facility]) Outpatient Attender: HENRY CLARKE MD 12/12/2019 12:00:0 0 AM EDT [facility] Unknown [address] [facility] [address] 12/11/2019 12:00:00 AM EDT eCW1 ([facility]) Unknown [address] [facility] [address] 12/11/2019 12:00:00 AM EDT eCW1 ([facility]) Unknown [address] [facility] [address] 12/08/2019 12:00:00 AM EDT eCW1 ([facility]) Unknown [address] [facility] [address] 12/08/2019 12:00:00 AM EDT eCW1 [facility] Outpatient Referrer: DEMETRIUS PERSON MD 12/07/2019 06:08:00 AM EDT [facility] Outpatient Attender: Bill Winter MD 12/06/2019 12:00:00 A M EDT [facility] Unknown [address] [facility] [address] 12/04/2019 12:00:00 AM EDT [facility]CW1 [facility]) 11/26/2019 01:00:00 AM EDT - 020 09:15:59 AM EDT NETSMART ([facility]) Outpatient Attender: Bill Winter MD 11/22/2019 12:00:00 A M [facility] [address] [place] [address], [facility] [address] 11/16/2019 12:00:00 AM EDT eCW1 ([facility]) [facility] [address] [place] [address] 10/19/2019 12:00:00 AM EDT eCW1 ([facility]) [facility] [address] [facility] [place] [address] 10/17/2019 12:00:00 AM EDT eCW1 ([facility]) [facility] [address] [place] [address] [place] [address] 09/15/2019 12:00:00 AM EDT eCW1 ([facility]) [facility] [address] [place] [address] [place] [address] 09/13/2019 12:00:00 AM EDT eCW1 ([facility]) Outpatient Referrer: Yosef Barrera MD 09/08/2019 12:00:00 AM EDT Discitis, unspecified, lumbar region [facility] Discitis, unspecified, lumbar region Outpatient Attender: Yosef Barrera MD [id number] 09/08/2019 12:00:00 AM [facility] Outpatient Attender: Yosef Barrera MD 09/04/2019 12:00:00 AM [facility] [address] [facility] [address] 08/23/2019 12:00:00 AM EST eCW1 ([facility]) [facility] C ENTER 08/14/2019 12:00:00 AM EST eCW1 ([facility]) Outpatient Referrer: DEMETRIUS PERSON MD 07/25/2019 12:16:00 PM EST [facility] Outpatient Attender: BENJAMIN Hurtadoferrer: DONNA VELEZ [id number] 07/24/2019 12:00:00 AM EST - 07/24/2019 11:56:58 AM EST [facility] Outpatient Attender: Yosef Barrera MD [id number] 07/21/2019 12:00:00 AM E [facility] C ENTER 07/21/2019 12:00:00 AM EST eCW1 ([facility]) Outpatient Attender: Christopher Martinez MDReferrer: Christopher Martinez MDConsultant: Christopher Martinez MD 07/18/2019 01:14:0 0 PM EST - 07/18/2019 01:24:00 PM EST [facility] C ENTER 07/13/2019 12:00:00 AM EST eCW1 ([facility]) Outpatient Attender: Christopher Martinez MDReferrer: Christopher Martinez MDConsultant: Christopher Martinez MD 07/10/2019 10:52:0 0 AM EST - 07/10/2019 11:02:00 AM EST [facility] Outpatient Attender: BENJAMIN Hurtadoferrer: DONNA VELEZ [id number] 07/10/2019 12:00:00 AM EST - 07/10/2019 02:15:44 PM EST Extradural and subdural abscess, unspecified [facility] Extradural and subdural abscess, unspeci fied [facility] C ENTER 07/04/2019 12:00:00 AM EST eCW1 ([facility]) Outpatient Attender: Christopher Martinez MDReferrer: Christopher Martinez MDConsultant: Christopher Martinez MD 07/03/2019 04:12:0 0 PM EST - 07/03/2019 04:22:00 PM [facility] Outpatient Attender: Bill Winter MD 06/30/2019 09:29:00 A M [facility] Outpatient Referrer: DEMETRIUS PERSON MD 06/30/2019 08:20:00 AM EST [facility] 06/30/2019 12: 00:00 AM EST eCW1 ([facility]) Outpatient Attender: Christopher Martinez MDReferrer: Christopher Martinez MDConsultant: Christopher Martinez MD 06/29/2019 03:38:0 0 PM EST - 06/29/2019 03:48:00 PM [facility] Outpatient Attender: Christopher Martinez MDReferrer: Christopher Martinez MDConsultant: Christopher Martinez MD 06/26/2019 02:46:0 0 PM EST - 06/26/2019 02:56:00 PM [facility] Outpatient Referrer: Cleo GALLAGHER 06/23/2019 12 :00:00 AM EST Extradural and subdural abscess, unspecified [facility] Extradural and subdural abscess, unspeci fied Outpatient Attender: Yosef Barrera MD [id number] 06/23/2019 12:00:00 AM E [facility] Outpatient Attender: Christopher Martinez MDReferrer: Christopher Martinez MDConsultant: Christopher Martinez MD 06/19/2019 03:51:0 0 PM EST - 06/19/2019 04:01:00 PM [facility] 06/16/2019 12:00:00 AM EST - 020 11:07:01 AM EST [facility]) Inpatient Attender: Chriss Chirinos tatyana: DONNA OLIVOAttender: DIONY KEITA MDAttender: MIMI OSPINA MDAdmitter: DIONY KEITA MDReferrer: DIONY KEITA MD [id number] 06/10/2019 12:00:00 AM EST - 06/15/2019 12:00:00 AM ES T Discitis, unspecified, lumbar region [facility] Discitis, unspecified, lumbar region Patient discharged. Immunizations Vaccine Date Status Description Data Source(s) New in 2011. IIV4 03/11/2020 09:16:00 AM EDT completed eCW1 ([facility]) New in 2011. IIV4 03/11/2020 09:16:00 AM EDT completed eCW1 ([facility]) New in 2011. IIV4 03/11/2020 09:16:00 AM EDT completed eCW1 ([facility]) New in 2011. IIV4 03/11/2020 09:16:00 AM EDT completed eCW1 ([facility]) New in 2011. IIV4 03/11/2020 09:16:00 AM EDT completed eCW1 ([facility]) New in 2011. IIV4 06/14/2019 12:00:00 AM EST completed In fluenza Quad IM Pres Free (0.5 mL dose) 06/14/2019 [facility] Medications Medication Brand Name Start Date Product Form Dose Route Admi nistrative Instructions Pharmacy Instructions Status Indications Reaction Description Data Source(s) 100 mcg/0.5 mL 07/15/2020 12:00:00 AM EST suspension 0 INJECT BY [facility] (FIRST DOSE) INJECT BY [facility] (FIRST DOSE) SOLD: 07/15/2020 [facility] [...] suspended Bactrim DS 800-160 MG eCW1 ( [facility]) Sulfamethoxazole 800 MG / Trimethoprim 1 60 MG Oral Tablet [Bactrim] Bactrim DS 800-160 MG Bactrim DS 800-160 MG 04/05/2020 12:00:00 AM EDT 1.0 {table t} active Bactrim DS 800-160 MG eCW1 ( [facility]) Sulfamethoxazole 800 MG / Trimethoprim 1 60 MG Oral Tablet [Bactrim] Bactrim DS 800-160 MG Bactrim DS 800-160 MG 04/05/2020 12:00:00 AM EDT 1.0 {table t} active Bactrim DS 800-160 MG eCW1 ( [facility]) Sulfamethoxazole 800 MG / Trimethoprim 1 60 MG Oral Tablet [Bactrim] Bactrim DS 800-160 MG Bactrim DS 800-160 MG 04/05/2020 12:00:00 AM EDT 1.0 {table t} suspended Bactrim DS 800-160 MG eCW1 ( [facility]) Sulfamethoxazole 800 MG / Trimethoprim 1 60 MG Oral Tablet [Bactrim] Bactrim DS 800-160 MG Bactrim DS 800-160 MG 04/05/2020 12:00:00 AM EDT 1.0 {table t} active Bactrim DS 800-160 MG eCW1 ( [facility]) Sulfamethoxazole 800 MG / Trimethoprim 1 60 MG Oral Tablet [Bactrim] Bactrim DS 800-160 MG Bactrim DS 800-160 MG 04/05/2020 12:00:00 AM EDT 1.0 {table t} suspended Bactrim DS 800-160 MG eCW1 ( [facility]) Sulfamethoxazole 800 MG / Trimethoprim 1 60 MG Oral Tablet [Bactrim] Bactrim DS 800-160 MG Bactrim DS 800-160 MG 04/05/2020 12:00:00 AM EDT 1.0 {table t} suspended Bactrim DS 800-160 MG eCW1 ( [facility]) Sulfamethoxazole 800 MG / Trimethoprim 1 60 MG Oral Tablet [Bactrim] Bactrim DS 800-160 MG Bactrim DS 800-160 MG 04/05/2020 12:00:00 AM EDT 1.0 {table t} active Bactrim DS 800-160 MG eCW1 ( [facility]) Sulfamethoxazole 800 MG / Trimethoprim 1 60 MG Oral Tablet [Bactrim] Bactrim DS 800-160 MG Bactrim DS 800-160 MG 04/05/2020 12:00:00 AM EDT 1.0 {table t} active Bactrim DS 800-160 MG eCW1 ( [facility]) Sulfamethoxazole 800 MG / Trimethoprim 1 60 MG Oral Tablet [Bactrim] Bactrim DS 800-160 MG Bactrim DS 800-160 MG 04/05/2020 12:00:00 AM EDT 1.0 {table t} active Bactrim DS 800-160 MG eCW1 ( [facility]) 100 mg 03/11/2020 12:00:00 AM EDT tablet [...] Oral Tablet (PROSCAR) 03/07/2020 12:00:00 AM EDT [facility] 20 mg 02/27/2020 12:00:00 AM EDT [...] {tablet} active Pr lian 5 MG eCW1 ([facility]) Finasteride 5 MG Oral Tablet [Proscar] Proscar 5 MG Proscar 5 MG 01/09/2020 12:00:00 AM EDT 1.0 {tablet} active Pr lian 5 MG eCW1 ([facility]) Finasteride 5 MG Oral Tablet FINASTERIDE 01/09/2020 12:00:00 AM EDT ta blet 30 TAKE ONE TABLET BY MOUTH ONCE DAILY TAKE ONE TABLET BY MOUTH ONCE DAILY SOLD: 03/08/2020 [facility] Finasteride 5 MG Oral Tablet [Proscar] Proscar 5 MG Proscar 5 MG 01/09/2020 12:00:00 AM EDT 1.0 {tablet} active Pr lian 5 MG eCW1 ([facility]) Finasteride 5 MG Oral Tablet FINASTERIDE 01/09/2020 12:00:00 AM EDT ta blet 30 TAKE ONE TABLET BY MOUTH ONCE DAILY TAKE ONE TABLET BY MOUTH ONCE DAILY SOLD: 06/02/2020 [facility] Finasteride 5 MG Oral Tablet [Proscar] Proscar 5 MG Proscar 5 MG 01/09/2020 12:00:00 AM EDT 1.0 {tablet} active Pr lian 5 MG eCW1 ([facility]) Finasteride 5 MG Oral Tablet [Proscar] Proscar 5 MG Proscar 5 MG 01/09/2020 12:00:00 AM EDT 1.0 {tablet} active Pr lian 5 MG eCW1 ([facility]) Finasteride 5 MG Oral Tablet [Proscar] Proscar 5 MG Proscar 5 MG 01/09/2020 12:00:00 AM EDT 1.0 {tablet} active Pr lian 5 MG eCW1 ([facility]) Finasteride 5 MG Oral Tablet [Proscar] Proscar 5 MG Proscar 5 MG 01/09/2020 12:00:00 AM EDT 1.0 {tablet} active Pr lian 5 MG eCW1 ([facility]) Finasteride 5 MG Oral Tablet FINASTERIDE 01/09/2020 12:00:00 AM EDT ta blet 30 TAKE ONE TABLET BY MOUTH ONCE DAILY TAKE ONE TABLET BY MOUTH ONCE DAILY SOLD: 01/10/2020 [facility] Finasteride 5 MG Oral Tablet [Proscar] Proscar 5 MG Proscar 5 MG 01/09/2020 12:00:00 AM EDT 1.0 {tablet} active Pr lian 5 MG eCW1 ([facility]) Finasteride 5 MG Oral Tablet [Proscar] Proscar 5 MG Proscar 5 MG 01/09/2020 12:00:00 AM EDT 1.0 {tablet} active Pr lian 5 MG eCW1 ([facility]) Finasteride 5 MG Oral Tablet FINASTERIDE 01/09/2020 12:00:00 AM EDT ta blet 30 TAKE ONE TABLET BY MOUTH ONCE DAILY TAKE ONE TABLET BY MOUTH ONCE DAILY SOLD: 05/07/2020 [facility] Finasteride 5 MG Oral Tablet [Proscar] Proscar 5 MG Proscar 5 MG 01/09/2020 12:00:00 AM EDT 1.0 {tablet} active Pr lian 5 MG eCW1 ([facility]) Finasteride 5 MG Oral Tablet FINASTERIDE 01/09/2020 [...] {tablet} active Pr lian 5 MG eCW1 ([facility]) Finasteride 5 MG Oral Tablet FINASTERIDE 01/09/2020 12:00:00 AM EDT ta blet 30 TAKE ONE TABLET BY MOUTH ONCE DAILY TAKE ONE TABLET BY MOUTH ONCE DAILY SOLD: 02/09/2020 [facility] Finasteride 5 MG Oral Tablet [Proscar] Proscar 5 MG Proscar 5 MG 01/09/2020 12:00:00 AM EDT 1.0 {tablet} active Pr lian 5 MG eCW1 ([facility]) Finasteride 5 MG Oral Tablet [Proscar] Proscar 5 MG Proscar 5 MG 01/09/2020 12:00:00 AM EDT 1.0 {tablet} active Pr lian 5 MG eCW1 ([facility]) Finasteride 5 MG Oral Tablet [Proscar] Proscar 5 MG Proscar 5 MG 01/09/2020 12:00:00 AM EDT 1.0 {tablet} active Pr lian 5 MG eCW1 ([facility]) atorvastatin 40 MG Oral Tablet ATORVASTATIN CALCIUM [...] Oral active Take 40 mg by mouth [facility] 2.5 mg 12/20/2019 12:00:00 AM EDT [...] 2.5 mg by mouth Two Times Daily [facility] 10 mg 12/18/2019 12:00:00 AM EDT tablet [...] Tablet (NORVASC) 12/18/2019 12:00:00 AM EDT active [facility] Cephalexin 250 MG Cephalexin 12/15/2019 01:00:00 AM EDT completed NETSMART ([facility] ) 250 mg 12/15/2019 12:00:00 AM EDT capsule 40 TAKE ONE CAPSULE BY MOUTH FOUR TIMES A DAY FOR 10 DAYS TAKE ONE CAPSULE BY MOUTH FOUR TIMES A DAY FOR 10 DAYS SOLD: 12/15/2019 [facility] Tamsulosin HCl 0.4 MG Tamsulosin HCl 11/26/2019 01:00:00 AM EDT 0.4 {mg} completed NETSMART ([facility]) MetFORMIN HCl 1000 MG MetFORMIN HCl 11/26/2019 01:00:00 AM EDT completed NETSMART ([facility]) Pravastatin Sodium 20 MG Pravastatin Sodium 11/26/2019 01:00:00 AM EDT completed NETSMART ([facility]) Atorvastatin Calcium 40 MG Atorvastatin Calcium 11/26/2019 01:00:00 A M EDT completed NETSMART ( [facility]) Losartan Potassium-HCTZ 100-12.5 MG Losartan Potassium-HCTZ 11/26/2019 01:00:00 AM EDT completed NETSMAR T ([facility]) Eliquis 2.5 MG Eliquis 11/26/2019 01:00:00 AM EDT 0 {mg} completed NETSMART ([facility] ) Insulin Detemir 100 UNIT/ML Insulin Detemir 11/26/2019 01:00:00 AM EDT 8.0 {unit} completed NETSMART ([facility]) B12 Folate 800-800 MCG B12 Folate 11/26/2019 01:00:00 AM EDT completed NETSMART ([facility]) Daily Multivitamin Daily Multivitamin 11/26/2019 01:00:00 AM EDT completed NETSMART ([facility]) Omeprazole 20 MG Omeprazole 11/26/2019 01:00:00 AM EDT completed NETSMART ([facility] ) Iron (Ferrous Sulfate) 142 (45 Fe) MG Iron (Ferrous Sulfate) 11/26/2019 01:00:00 AM EDT completed NETSMA RT ([facility]) 40 mg 11/23/2019 12:00:00 AM EDT tablet [...] A M EDT 0 {mg} completed NETSMART ([facility]) 20 mg 11/13/2019 12:00:00 AM EDT tablet [...] EST suspended Kefle x 500 MG eCW1 ([facility]) Cephalexin 500 MG Oral Capsule [Keflex] Keflex 500 MG Keflex 500 MG 08/23/2019 12:00:00 AM EST suspended Kefle x 500 MG eCW1 ([facility]) Cephalexin 500 MG Oral Capsule [Keflex] Keflex 500 MG Keflex 500 MG 08/23/2019 12:00:00 AM EST suspended Kefle x 500 MG eCW1 ([facility]) Cephalexin 500 MG Oral Capsule [Keflex] Keflex 500 MG Keflex 500 MG 08/23/2019 12:00:00 AM EST active 1 capsul e 1 hour prior to your cystoscopy eCW1 ([facility]) Cephalexin 500 MG Oral Capsule [Keflex] Keflex 500 MG Keflex 500 MG 08/23/2019 12:00:00 AM EST suspended Kefle x 500 MG eCW1 ([facility]) Cephalexin 500 MG Oral Capsule [Keflex] Keflex 500 MG Keflex 500 MG 08/23/2019 12:00:00 AM EST suspended Kefle x 500 MG eCW1 ([facility]) Cephalexin 500 MG Oral Capsule [Keflex] Keflex 500 MG Keflex 500 MG 08/23/2019 12:00:00 AM EST suspended Kefle x 500 MG eCW1 ([facility]) Cephalexin 500 MG Oral Capsule [Keflex] Keflex 500 MG Keflex 500 MG 08/23/2019 12:00:00 AM EST active Keflex 5 00 MG eCW1 ([facility]) Cephalexin 500 MG Oral Capsule [Keflex] Keflex 500 MG Keflex 500 MG 08/23/2019 12:00:00 AM EST suspended Kefle x 500 MG eCW1 ([facility]) Cephalexin 500 MG Oral Capsule [Keflex] Keflex 500 MG Keflex 500 MG 08/23/2019 12:00:00 AM EST suspended Kefle x 500 MG eCW1 ([facility]) Cephalexin 500 MG Oral Capsule [Keflex] Keflex 500 MG Keflex 500 MG 08/23/2019 12:00:00 AM EST suspended 1 capsule 1 hour prior to your cystoscopy eCW1 ([facility]) Cephalexin 500 MG Oral Capsule [Keflex] Keflex 500 MG Keflex 500 MG 08/23/2019 12:00:00 AM EST active Keflex 5 00 MG eCW1 ([facility]) Cephalexin 500 MG Oral Capsule [Keflex] Keflex 500 MG Keflex 500 MG 08/23/2019 12:00:00 AM EST suspended Kefle x 500 MG eCW1 ([facility]) Cephalexin 500 MG Oral Capsule [Keflex] Keflex 500 MG Keflex 500 MG 08/23/2019 12:00:00 AM EST active Keflex 5 00 MG eCW1 ([facility]) Cephalexin 500 MG Oral Capsule [Keflex] Keflex 500 MG Keflex 500 MG 08/23/2019 12:00:00 AM EST suspended Kefle x 500 MG eCW1 ([facility]) Cephalexin 500 MG Oral Capsule [Keflex] Keflex 500 MG Keflex 500 MG 08/23/2019 12:00:00 AM EST suspended Kefle x 500 MG eCW1 ([facility]) Cephalexin 500 MG Oral Capsule [Keflex] Keflex 500 MG Keflex 500 MG 08/23/2019 12:00:00 AM EST active Keflex 5 00 MG eCW1 ([facility]) Cephalexin 500 MG Oral Capsule [Keflex] Keflex 500 MG Keflex 500 MG 08/23/2019 12:00:00 AM EST active Keflex 5 00 MG eCW1 ([facility]) Cephalexin 500 MG Oral Capsule [Keflex] Keflex 500 MG Keflex 500 MG 08/23/2019 12:00:00 AM EST suspended Kefle x 500 MG eCW1 ([facility]) Cephalexin 500 MG Oral Capsule [Keflex] Keflex 500 MG Keflex 500 MG 08/23/2019 12:00:00 AM EST active Keflex 5 00 MG eCW1 ([facility]) Cephalexin 500 MG Oral Capsule [Keflex] Keflex 500 MG Keflex 500 MG 08/23/2019 12:00:00 AM EST suspended Kefle x 500 MG eCW1 ([facility]) Cephalexin 500 MG Oral Capsule [Keflex] Keflex 500 MG Keflex 500 MG 08/23/2019 12:00:00 AM EST suspended Kefle x 500 MG eCW1 ([facility]) 20 mg 08/21/2019 12:00:00 AM EST capsule,delayed [...] TABLET BY MOUTH EVERY DAY SOLD: 07/25/2019 [facility] Tamsulosin hydrochloride 0.4 MG Oral Cap delphine Tamsulosin HCl 0.4 MG Oral Capsule (FLOMAX) Tamsulosin HCl 0.4 MG Oral Capsule (FLOMAX) 07/17/2019 12:00 :00 AM EST 0.4 mg Oral aborted Take 1 capsule b y mouth daily [facility] 0.4 mg 07/17/2019 12:00:00 AM EST capsule 30 TAKE ONE CAPSULE BY MOUTH EVERY DAY TAKE ONE CAPSULE BY MOUTH EVERY DAY SOLD: 07/18/2019 [facility] Misc. Devices (DURABLE MEDICAL EQUIPMENT SEE SIG) [place] [facility] [id number] 07/03/2019 12:00:00 AM EST aborted Use as directed. Wheel chair Dx: Back pain [facility] Ibuprofen 200 MG Ibuprofen 06/26/2019 12:00:00 AM EST completed NETSMART ([facility]) Misc. Devices (DURABLE MEDICAL EQUIPMENT SEE SIG) XX [facility] [id number] 06/23/2019 12:00:00 AM EST aborted Use as directed. Urinary leg bag Dx: R33.9 [facility] Tylenol Extra Strength 500 MG Tylenol Extra Strength 06/20/2019 12:00:00 AM EST 0 {tablet} completed NET SMART ([facility]) POLYETHYLENE GLYCOL 3350 142 MG/ML Oral Solution Polyethylene Glycol 3350 Oral Packet (MIRALAX) Polyethylene Glycol 3350 Oral Packet (MIRALAX) 019 12:00:00 AM EST 17 g Oral aborted Take 1 packet by mouth daily Please substitute bottle for packets, if packets are unavailable. [facility] Tamsulosin hydrochloride 0.4 MG Oral Cap delphine Tamsulosin HCl 0.4 MG Oral Capsule (FLOMAX) Tamsulosin HCl 0.4 MG Oral Capsule (FLOMAX) 06/16/2019 12:00 :00 AM EST 0.4 mg Oral aborted Take 1 capsule b y mouth daily [facility] Lantus SoloStar 100 UNIT/ML Lantus SoloStar 06/16/2019 12:00:00 AM EST 8.0 {unit} completed NETSMART ([facility]) MetFORMIN HCl 1000 MG MetFORMIN HCl 06/16/2019 12:00:00 AM EST completed NETSMART ([facility]) Senna 8.6 MG Senna 06/16/2019 12:00:00 AM EST 2.0 {tablet} completed NETSMART ([facility]) 3 ML heparin sodium, porcine 100 UNT/ML Prefilled Syringe Heparin Lock Flush 100 UNIT/ML Intravenous Solution Heparin Lock Flush 100 UNIT/ML Intraveno us Solution 06/16/2019 12:00:00 AM EST 500 U Intracatheter aborted Encounter for long-term (current) use of antibioticsDiscitis of lumbar regionEpidural abscess 5 mLs by Intracatheter route as needed (For after IV infusion and as needed) [facility] Encounter for long-term (current) use of antibiotics Discitis of lumbar region Epidural abscess Ceftriaxone 2000 MG Injection cefTRIAXon e Sodium 2 GM Intravenous Solution Reconstituted cefTRIAXone Sodium 2 GM Intravenous Solution Reconstit uted 06/16/2019 12:00:00 AM EST 2 g Intravenous a borted Encounter for long-term (current) use of antibioticsDiscitis of lumbar regionEpidural abscess Inject 2 g into the vein every 24 (twenty-four) hours [facility] Encounter for long-term (current) use of antibiotics Discitis of lumbar region Epidural abscess Vancomycin HCl 1.5 GM Intravenous Solution Reconstitut ed (VANCOCIN) 62462-774-87 06/16/2019 12:00:00 AM EST 1500 mg Intravenous a borted Encounter for long-term (current) use of antibioticsDiscitis of lumbar regionEpidural abscess Inject 1.5 g into the vein every 24 (twenty-four) hour s [facility] Encounter for long-term (current) use of antibiotics Discitis of lumbar region Epidural abscess Normal Saline Flush 0.9 % Intravenous Solution [id number] 06/16/2019 12:00:00 AM EST 10 mL Intravenous aborted Encounte r for long-term (current) use of antibioticsDiscitis of lumbar regionEpidural abscess I nject 10 mLs into the vein as needed (For before and after infusion and prn) [facility] Encounter for long-term (current) use of antibiotics Discitis of lumbar region Epidural abscess Tamsulosin hydrochloride 0.4 MG Oral Cap delphine Tamsulosin HCl 0.4 MG Oral Capsule (FLOMAX) Tamsulosin HCl 0.4 MG Oral Capsule (FLOMAX) 06/16/2019 12:00 :00 AM EST 0.4 mg Oral aborted Take 1 capsule b y mouth daily [facility] POLYETHYLENE GLYCOL 3350 142 MG/ML Oral Solution Polyethylene Glycol 3350 Oral Packet (MIRALAX) Polyethylene Glycol 3350 Oral Packet (MIRALAX) 019 12:00:00 AM EST 17 g Oral active Take 1 packet by mouth daily Please substitute bottle for packets, if packets are unavailable. [facility] Tamsulosin hydrochloride 0.4 MG Oral Cap delphine Tamsulosin HCl 0.4 MG Oral Capsule (FLOMAX) Tamsulosin HCl 0.4 MG Oral Capsule (FLOMAX) 06/16/2019 12:00 :00 AM EST 0.4 mg Oral active Take 1 capsule b y mouth daily [facility] Ferrous Sulfate 325 (65 Fe) MG Ferrous Sulfate 06/16/2019 12:00:00 AM EST completed NETSMART ([facility]) Losartan Potassium 100 MG Losartan Potassium 06/16/2019 12:00:00 AM EST completed NETSMART ([facility]) Tamsulosin HCl 0.4 MG Tamsulosin HCl 06/16/2019 12:00:00 AM EST completed NETSMART ([facility]) Omeprazole 20 MG Omeprazole 06/16/2019 12:00:00 AM EST completed NETSMART ([facility] ) Pravastatin Sodium 20 MG Pravastatin Sodium 06/16/2019 12:00:00 AM EST completed NETSMART ([facility]) POLYETHYLENE GLYCOL 3350 142 MG/ML Oral Solution Polyethylene Glycol 3350 Oral Packet (MIRALAX) Polyethylene Glycol 3350 Oral Packet (MIRALAX) 019 12:00:00 AM EST 17 g Oral aborted Take 1 packet by mouth daily Please substitute bottle for packets, if packets are unavailable. [facility] Heparin Lock Flush 100 UNIT/ML Heparin Lock Flush 06/16/2019 12:00: 00 AM EST 5.0 {ml} completed NETSMART ([facility]) CefTRIAXone Sodium 2 GM CefTRIAXone Sodium 06/16/2019 12:00:00 AM EST completed NETSMART ([facility]) Normal Saline Flush 0.9 % Normal Saline Flush 06/16/2019 12:00:00 A M EST 10.0 {ml} completed NETSMART ([facility]) Vancomycin HCl 1.5 GM Vancomycin HCl 06/16/2019 12:00:00 AM EST completed NETSMART ([facility]) Acetaminophen 325 MG Oral Tablet Acetaminophen 325 MG Oral T ablet 06/15/2019 12:00:00 AM EST 975 mg Oral active Take 3 tablets by mouth every 8 (eight) hours [facility] sennosides, [facility] 8.6 MG Oral Tablet Senna 8.6 MG Oral T ablet Senna 8.6 MG Oral Tablet 06/15/2019 12:00:00 AM EST 2 {tbl} Oral aborted Take 2 tablets by mouth nightly [facility] Ceftriaxone 2000 MG Injection cefTRIAXone (ROCEPHIN) i nfusion 2 g cefTRIAXone (ROCEPHIN) infusion 2 g 06/15/2019 12:00:00 AM EST 2 g Intraveno us completed Inject 2 g into the vein every 2 4 (twenty-four) hours [facility] Vancomycin HCl 1500 MG/300ML Intravenous Solution (VANCOCIN) [id number] 06/15/2019 12:00:00 AM EST 1500 mg Intravenous aborted Inject 300 mLs into the vein every 24 (twenty-four) hours [facility] ferrous sulfate 325 MG Oral Tablet Ferrous Sulfate 325 (65 Fe) MG Oral Tablet Ferrous Sulfate 325 (65 Fe) MG Oral Tablet 06/15/2019 12:00:00 AM EST 325 mg Oral active Take 1 tablet by zaira th daily with [facility] sennosides, CHCF 8.6 MG Oral Tablet Senna 8.6 MG Oral T ablet Senna 8.6 MG Oral Tablet 06/15/2019 12:00:00 AM EST 2 {tbl} Oral aborted Take 2 tablets by mouth nightly [facility] sennosides, [facility] 8.6 MG Oral Tablet Senna 8.6 MG Oral T ablet Senna 8.6 MG Oral Tablet 06/15/2019 12:00:00 AM EST 2 {tbl} [facility]orted [facility] MG Oral Tablet Ferrous Sulfate 325 (65 Fe) MG Oral Tablet Ferrous Sulfate 325 (65 Fe) MG Oral Tablet 06/15/2019 12:00:00 AM EST 325 mg Oral aborted Take 1 tablet by zaira daily with [facility] ferrous sulfate 325 MG Oral Tablet Ferrous Sulfate 325 (65 Fe) MG Oral Tablet Ferrous Sulfate 325 (65 Fe) MG Oral Tablet 06/15/2019 12:00:00 AM EST 325 mg Oral aborted Take 1 tablet by zaira daily with [facility] ferrous sulfate 325 MG Oral Tablet Ferrous Sulfate 325 (65 Fe) MG Oral Tablet Ferrous Sulfate 325 (65 Fe) MG Oral Tablet 06/15/2019 12:00:00 AM EST 325 mg Oral aborted Take 1 tablet by zaira daily with [facility] influenza vac split quad (FLUARIX) injection 6 months and ol tatyana 0.5 mL [id number] 06/14/2019 07:11:50 PM EST 0.5 mL Intramuscular complet ed 0.5 mL, Intramuscular, Give Now, Starting Wed06/14/19 at 1911, For 1 dose [facility] Medication administered onsite sodium phosphate 6 mmol/100 mL IVPB 06/14/2019 12:00:00 PM EST 6 mmol Intravenous completed 6 mmol, Intra venous, at 50 mL/hr, Every 2 hours, First dose (after last reorder) on Wed06/14/19 at 1200, For 2 doses
Slower infusion rate (e.g. over 4 to 6 hours) are recommended in patients with renal impairment and/or less severe hypophosphatemia.
[facility] Medication administered onsite magnesium sulfate in dextrose 5 % infusion (premix) 8 mEq [id number] 06/14/2019 11:00:00 AM EST 8 meq Intravenous completed 8 mEq, Intravenous, Administer over 60 Minutes, Every 1 hour, First dose on Wed06/14/19 at 1100, For 2 doses
each 8 mEq equivalent to 1 gm
[facility] Medication administered onsite Tamsulosin hydrochloride 0.4 MG Oral Capsule tamsulosi n (FLOMAX) capsule 0.4 mg tamsulosin (FLOMAX) capsule 0.4 mg 06/14/2019 11:00:00 AM EST 0.4 mg Oral active 0.4 mg, Oral, Daily Standard, First dose on Wed06/14/19 at 1100, For 30 days
Swallow whole. Do not crush, chew or open.
[facility] Medication administered onsite Magnesium Oxide 400 MG Oral Tablet Magnesium Oxide (MA G-OX) tablet 400 mg Magnesium Oxide (MAG-OX) tablet 400 mg 06/14/2019 10:30:00 AM EST 4 00 mg Oral completed 400 mg, Oral, Once, Wed08/15/18 at 1030, For 1 dose [facility] Medication administered onsite potassium phosphate 155 MG [...] mEq), and potassium 45 mg (1.1 mEq)
[facility] Medication administered onsite Hydralazine Hydrochloride 20 MG/ML [...] minutes.TO BE GIVEN ONLY IF S BP>170
[facility] Medication administered onsite sodium phosphate 6 mmol/100 mL IVPB 06/13/2019 12:00:00 PM EST 6 mmol Intravenous completed 6 mmol, Intra venous, at 50 mL/hr, Every 2 hours, First dose on Wed06/13/19 at 1200, For 2 doses
Slower infusion rate (e.g. over 4 to 6 hours) are recommended in patients with renal impairment and/or less severe hypophosphatemia.
[facility] Medication administered onsite Bisacodyl 10 MG Rectal Suppository bisacodyl (DULCOLAX ) suppository 10 mg bisacodyl (DULCOLAX) suppository 10 mg 06/13/2019 10:30:00 AM EST 10 mg Rectal completed 10 mg, Rectal, Once, Wed06/13/19 at 1030, For 1 dose [facility] Medication administered onsite Bisacodyl 10 MG Rectal Suppository bisacodyl (DULCOLAX ) suppository 10 mg bisacodyl (DULCOLAX) suppository 10 mg 06/13/2019 10:27:21 AM EST 10 mg Rectal active 10 mg, Rectal, Daily PRN, Constipation, Starting Wed06/13/19 at 1027, For 30 days [facility] Medication administered onsite sodium chloride (preservative free) [...] mL Heparin 10 units/mL to lock.Reference Policy [facility]-[address] Central Line Policy.
[Order 2 End] [Order 3 Start] Name: sodium chloride (preservative free) 0.9 % flush 10 mL Signed Summary: 10 mL, Intravenous, Every 12 hours, First dose on Wed06/13/19 at 1030, For 30 days
WHEN NOT IN USE - Verify blood return before use. Flush with 10 mL of Sodium Chloride 0.9 % and 2 mL Heparin 10 units/mL.Reference Policy [address] Central Line Policy.
[Order 3 End] [Order 4 Start] Name: heparin lock flush 10 UNIT/ML injection 20 Units Signed Summary: 20 Units, Intravenous, Every 12 hours, First dose on Wed06/13/19 at 1030, For 30 days
WHEN NOT IN USE - Verify blood return before use. Flush with 10 mL of Sodium Chloride 0.9 % and 2 mL Heparin 10 units/mL.Reference Policy [address] Central Line Policy.
[Order 4 End] [facility] Medication administered onsite lidocaine (XYLOCAINE) 1 % injection 5 mL [id number] 06/13/2019 10:26:31 AM EST 5 mL Subcutaneous active 5 m L, Subcutaneous, Once PRN, for PICC insertion, Starting Wed06/13/19 at 1026, For 30 days [facility] Medication administered onsite Ceftriaxone 2000 MG Injection cefTRIAXone (ROCEPHIN) I VPB (premix) 2 g cefTRIAXone (ROCEPHIN) IVPB (premix) 2 g 06/12/2019 06:30:00 PM EST 2 g Intravenous active 2 g, Intraven ous, at 100 mL/hr, Every 24 hours, First dose on Wed06/12/19 at 1830, For 7 days
Discouraged Uses: Empiric treatment of post-surgical meningitis (ceftazidime preferred)
[facility] Medication administered onsite Losartan Potassium 50 MG Oral Tablet losartan (COZAAR) tablet 50 mg losartan (COZAAR) tablet 50 mg 06/12/2019 11:15:00 AM EST 50 mg Oral active 50 mg, Oral, Daily Standard, First dose on Wed06/12/19 at 1115, For 30 days
Check vital signs before administering
[facility] Medication administered onsite Insulin Glargine 100 UNT/ML [...] glucose more than 400 mg/dL: notify provider
[facility] Medication administered onsite magnesium sulfate in dextrose 5 % infusion (premix) 8 mEq 04 09-6727-23 06/12/2019 09:00:00 AM EST 8 meq Intravenous completed 8 mEq, Intravenous, Administer over 60 Minutes, Every 1 hour, First dose on Wed06/12/19 at 0900, For 3 doses
each 8 mEq equivalent to 1 gm
[facility] Medication administered onsite 0.4 ML Enoxaparin sodium 100 MG/ML Prefi lled Syringe enoxaparin sodium (LOVENOX) injection 40 mg enoxaparin sodium (LOVENOX) injection 40 mg 06/12/2019 09:00:00 AM EST 40 mg Subcutaneous active 40 mg, Subcutaneous, Daily Standard, First dose on Wed06/12/19 at 0900, For 30 days [facility] Medication administered onsite POLYETHYLENE GLYCOL 3350 142 [...] due to potential increased risk for aspiration.
[facility] Medication administered onsite Hydralazine Hydrochloride 20 MG/ML [...] minutes.TO BE GIVEN ONLY IF S BP>170
[facility] Medication administered onsite sennosides, CHCF 8.6 MG Oral Tablet senna 8.6 MG 2 tablet sen na 8.6 MG 2 tablet 06/11/2019 10:00:00 PM EST 2 {tbl} Oral active 2 tablet, Oral, Nightly, First dose on 06/11/19 at 2200, For 30 days [facility] Medication administered onsite Insulin Lispro 100 UNT/ML [...] Summary or Summary Report within the ED.
[facility] Medication administered onsite Glucose 0.4 MG/MG Oral Gel glucose (GLUTOSE) 40 % oral gel 15 g glucose (GLUTOSE) 40 % oral gel 15 g 06/11/2019 02:11:29 PM EST 15 g Oral active 15 g, Oral, PRN, Low blood s ugar, for gluose 55-69 mg/dl and able to take PO, Starting Wed06/11/19 at 1411, For 30 days [facility] Medication administered onsite vancomycin (VANCOCIN) infusion 1,500 mg/300 mL (premix) [id number] 06/11/2019 09:08:45 AM EST 1500 mg Intravenous active 1,500 mg, Intravenous, Administer over 90 Minutes, Every 24 hours, First dose (after last modification) on 06/11/19 at 0915, For 7 doses [facility] Medication administered onsite Piperacillin 3000 MG / tazobactam 375 MG Injection piperacillin-tazobactam (ZOSYN) IVPB 3.375 g (premix) piperacillin-tazobactam (ZOSYN) IVPB 3.3 75 g (premix) 06/11/2019 09:00:00 AM EST 3.375 g Intravenous abo rted 3.375 g, Intravenous, Administer over 4 Hours, Every 8 hours Standard (3 times per day), First dose on 06/11/19 at 0900, For 3 days [facility] Medication administered onsite Acetaminophen 325 MG Oral Tablet acetaminophen (TYLENO L) tablet 975 mg acetaminophen (TYLENOL) tablet 975 mg 06/11/2019 08:15:00 AM EST 97 5 mg Oral active 975 mg, Oral, E very 8 hours, First dose on 06/11/19 at 0815, For 30 days
Maximum daily dose of acetaminophen is 3,000 mg from all sources in 24 hours.
[facility] Medication administered onsite dextrose 50 % IV solution 25 mL [id number] 06/10/2019 11:20:[address] 25 mL Intravenous active 25 mL, Intrav enous, PRN, Other, blood glucose <55, Starting 06/10/19 at 2320, For 30 days
Not for midline administration.
[facility] Medication administered onsite Glucagon 1 MG Injection glucagon (human recombinant) ( GLUCAGEN) injection 1 mg glucagon (human recombinant) (GLUCAGEN) injection 1 mg 06/10/2019 11:20:42 PM EST 1 mg Intramuscular active 1 mg, Intramuscular, PRN, for glucose <55 without IV access, Starting 06/10/19 at 2320, For 30 days [facility] Medication administered onsite Glucose 0.4 MG/MG Oral Gel glucose (GLUTOSE) 40 % oral gel 15 g glucose (GLUTOSE) 40 % oral gel 15 g 06/10/2019 11:20:42 PM EST 15 g Oral active 15 g, Oral, PRN, Low blood s ugar, for gluose 55-69 mg/dl and able to take PO, Starting 06/10/19 at 2320, For 30 days [facility] Medication administered onsite tramadol hydrochloride 50 MG Oral Tablet traMADol HCl 50 MG Oral Tablet (ULTRAM) traMADol HCl 50 MG Oral Tablet (ULTRAM) 50 mg Oral aborted Take 50 mg by mouth every 6 (six) hours as needed for Pain [facility] Acetaminophen 325 MG Oral Tablet Acetaminophen 325 MG Oral Tablet 650 mg Oral aborted Take 650 mg by mouth every 6 (six) hours as needed for Pain [facility] meloxicam 15 MG Oral Tablet Meloxicam 15 MG Oral Table t (MOBIC) Meloxicam 15 MG Oral Tablet (MOBIC) 15 mg Oral aborted Take 15 mg by mouth daily [facility] Pravastatin Sodium 20 MG Oral Tablet Pra vastatin Sodium 20 MG Oral Tablet (PRAVACHOL) Pravastatin Sodium 20 MG Oral Tablet (PRAVACHOL) 20 mg Oral aborted Take 20 mg by mouth daily [facility] Insurance Providers Payer name Policy type / Coverage type Policy ID Covered green party ID Covered green party's relationship to smith Policy Smith Plan Information MEDICARE BLUE PPO 306 [id number] SP [id number] MEDICARE BLUE PPO 306 [id number] SP [id number] [employer] BCBS B [id number] S VYM MEDICARE [id number] SP [id number] EXCELL[employer] MEDICARE BLUE PPO G [id number] Self [id number] [employer] BCBS MCR HMO [id number] S [id number] MEDICARE BLUE PPO 306 [id number] SP [id number] MEDICARE BLUE PPO 306 [id number] SP [id number] BLUE CROSS BLUE SHIELD MCR -OP [id number] 18 [id number] MEDICARE BLUE PPO 306 [id number] SP [id number] BLUE CROSS BLUE SHIELD -O/P [id number] 18 [id number] MEDICARE BLUE PPO 306 [id number] SP [id number] [employer]LL[employer] BCBS B [id number] S VYM MEDICARE BLUE PPO 306 [id number] SP [id number] BCBS [place] PPO 302/307 [id number] MEDICARE [id number] [facility] [id number] [place]2 [id number] [facility] Advantage Commercial [id number] Self [id number] MVP (pr) Medigap Part B [id number] Family Dependent [id number] [facility] MCR Advantage Commercial [id number] Self [id number] [facility] Advantage Commercial [id number] Self [id number] O UNAVAILABLE UNAVAILA BLE Problems, Conditions, and Diagnoses Code Display Name Description Problem Type Effective Dates Data Source(s) 69574238 Essential hypertension Essential hypertension Problem 01/15/2020 12:00:00 AM EDT MEDENT ([facility], ) 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 Problem 01/08/2020 12:00:00 AM EDT eCW1 ([facility]) [id number] Carotid artery stenosis Carotid artery stenosis Proble m 12/25/2019 12:00:00 AM EDT MEDENT ([facility], ) [id number] Ischemic stroke Ischemic stroke Problem 12/25/2019 12:0 0:00 AM EDT MEDENT ([facility] ) I48.92 Unspecified atrial flutter Unspecified atrial flutter Problem 11/25/2019 01:00:00 AM EDT NETSMART ([facility] ) 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, or unspecified chronic kidney disease Hypertensive chronic kidney disease with stage 1 through stage 4 chronic kidney disease, or unspecified chronic kidney disease Problem 11/25/2019 01:00:00 AM ED T NETSMART ([facility]) 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 Problem 11/25/2019 01:00:00 AM EDT NETSMART ([facility] ) N18.9 Chronic kidney disease, unspecified Chronic kidn ey disease, unspecified Problem 11/25/2019 01:00:00 AM EDT NETSMART ([facility]) D63.1 Anemia in chronic kidney disease Anemia in chronic kid sonal disease Problem 11/25/2019 01:00:00 AM EDT NETSMART ([facility] ) E11.40 Type 2 diabetes mellitus with diabetic n europathy, unspecified Type 2 diabetes mellitus with diabetic neuropathy, unspecified Problem 11/25/2019 01:00:00 AM EDT NETSMART ([facility] ) M48.061 Spinal stenosis, lumbar region without n eurogenic claudication Spinal stenosis, lumbar region without neurogenic claudication Problem 11/25/2019 01:00:00 AM EDT NETSMART ([facility] ) 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, lumbar region Intervertebral disc disorders with radiculopathy, lumbar region Problem 11/25/2019 01:00:00 AM EDT NETSMART ([facility] ) M54.30 Sciatica, unspecified side Sciatica, unspecified side Problem 11/25/2019 01:00:00 AM EDT NETSMART ([facility] ) M19.90 Unspecified osteoarthritis, unspecified site Unspecified osteoarthritis, unspecified site Problem 11/25/2019 01:00:00 AM EDT NETSMART ([facility]) D50.9 Iron deficiency anemia, unspecified Iron deficie ncy anemia, unspecified Problem 11/25/2019 01:00:00 AM EDT NETSMART ([facility]) R33.8 Other retention of urine Other retention of urine Prob norberto 11/25/2019 01:00:00 AM EDT NETSMART ([facility] ) Z46.6 Encounter for fitting and adjustment of urinary device Encounter for fitting and adjustment of urinary device Problem 11/25/2019 01:00:00 AM EDT NETSMART ([facility]) Z91.81 History of falling History of falling Problem 0 01:00:00 AM EDT NETSMART ([facility]) Z79.4 longterm (current) use of insulin longterm (cu rrent) use of insulin Problem 11/25/2019 01:00:00 AM EDT NETSMART ([facility]) Z79.01 manager intermediate (current) use of anticoagulant s longterm (current) use of anticoagulants Problem 11/25/2019 01:00:00 AM EDT NETSMART ([facility]) Z87.891 Personal history of nicotine dependence Personal history of nicotine dependence Problem 11/25/2019 01:00:00 AM EDT NETSMART ([facility]) 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 ebral infarction affecting right dominant side Problem 11/24/2019 01:00:00 AM EDT NET SMART ([facility]) R33.9 Urinary retention Urinary retention Problem 08/23/2019 12:00:00 AM EST eCW1 ([facility]) R33.9 Urinary retention Urinary retention Problem 08/23/2019 12:00:00 AM EST eCW1 ([facility]) Z46.6 Encounter for fitting and adjustment of urinary device Encounter for fitting and adjustment of urinary device Problem 08/10/2019 12:00:00 AM EST NETSMART ([facility]) R33.8 Other retention of urine Other retention of urine Prob norberto 08/10/2019 12:00:00 AM EST NETSMART ([facility] ) E11.40 Type 2 diabetes mellitus with diabetic n europathy, unspecified Type 2 diabetes mellitus with diabetic neuropathy, unspecified Problem 08/10/2019 12:00:00 AM EST NETSMART ([facility] ) 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, or unspecified chronic kidney disease Hypertensive chronic kidney disease with stage 1 through stage 4 chronic kidney disease, or unspecified chronic kidney disease Problem 08/10/2019 12:00:00 AM ES T NETSMART ([facility]) 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 Problem 06/16/2019 12:00:00 AM EST NETSMART ([facility]) 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 Problem 06/16/2019 12:00:00 AM EST NETSMART ([facility] ) N18.9 Chronic kidney disease, unspecified Chronic kidn ey disease, unspecified Problem 06/16/2019 12:00:00 AM EST NETSMART ([facility]) M19.90 Unspecified osteoarthritis, unspecified site Unspecified osteoarthritis, unspecified site Problem 06/16/2019 12:00:00 AM EST NETSMART ([facility]) Z91.81 History of falling History of falling Problem 9 12:00:00 AM EST NETSMART ([facility]) Z79.4 longterm (current) use of insulin longterm (cu rrent) use of insulin Problem 06/16/2019 12:00:00 [facility] R33.9 Retention of urine, unspecified Retention of urine, un specified Problem 06/16/2019 12:00:00 AM EST [facility] ([facility] ) Z51.81 Encounter for therapeutic drug level mon itoring Encounter for therapeutic drug level monitoring Problem 06/16/2019 12:00:00 AM [facility] Z79.2 manager intermediate (current) use of antibiotics L robert term (current) use of antibiotics Problem 06/16/2019 12:00:00 AM EST [facility] ([facility]) M46.46 Discitis, unspecified, lumbar region Dis citis, unspecified, lumbar region Problem 06/16/2019 12:00:00 AM EST [facility] M46.46 Discitis, unspecified, lumbar region Dis citis, unspecified, lumbar region Problem 06/14/2019 12:00:00 AM [facility] [id number] Discitis, unspecified, lumbar region Discitis, u nspecified, lumbar region Diagnosis 07/18/2019 01:14:00 PM [facility] 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 granuloma Diagnosis 07/18/2019 01:14:00 PM [facility] 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 I10 Essential (primary) hypertension Essential (primary) h ypertension Diagnosis 06/13/2019 09:07:[address] [facility] Surgeries/Procedures Procedure Description Date Indications Data Source(s) Medication: Lidocaine HCl 2% Jelly 5mL Intravesically 08/05/2020 12:00:00 AM EST eCW1 ([facility]) Medication: Lidocaine HCl 2% Jelly 5mL Intravesically 07/16/2020 12:00:00 AM EST eCW1 ([facility]) BLDR IRRIGATION SMPL LAVAGE&/INSTLJ 06/27/2020 12:00:0 0 AM EST eCW1 ([facility]) Medication: Lidocaine HCl 2% Jelly 5mL Intravesically 06/20/2020 12:00:00 AM EST eCW1 ([facility]) Medication: Lidocaine HCl 2% Jelly 5mL Intravesically 05/20/2020 12:00:00 AM EST eCW1 ([facility]) Burt Catheter Insertion 20F 04/05/2020 12:00:00 AM ED T eCW1 ([facility]) Medication: Lidocaine HCl 2% Jelly 5mL Intravesically 03/26/2020 12:00:00 AM EDT eCW1 ([facility]) TSTG ANS FUNCJ CARDIOVAGAL INNERVAJ PARASYMP 0 12:00:00 AM EDT [facility] ([facility]) TSTG ANS FUNCJ CARDIOVAGAL INNERVAJ PARASYMP 0 12:00:00 AM EDT [facility] ([facility]) TESTING AUTONOMIC NERVOUS SYSTEM FUNCTION 01/26/2020 1 2:00:00 AM EDT [facility] ([facility] ) TESTING AUTONOMIC NERVOUS SYSTEM FUNCTION 01/26/2020 1 2:00:00 AM EDT [facility] ([facility] ) NON-INVASIVE PHYSIOLOGIC STUDY EXTREMITY 3 LEVLS 01/25 12:00:00 AM EDT [facility] ([facility] ) Burt Catheter Coude Insertion 20F 01/09/2020 12:00:00 AM EDT eCW1 ([facility]) Magnetic Resonance Angiogtaphy Head W/O Contrast Material(S) 01/01/2020 12:00:00 AM EDT [facility] ([facility]) Magnetic Resonance Angiogtaphy Head W/O Contrast Material(S) 01/01/2020 12:00:00 AM EDT [facility] ([facility]) Magnetic Resonance Angiography Neck W/O And Then With Contra st ML 01/01/2020 12:00:00 AM EDT [facility] ([facility]) Magnetic Resonance Angiography Neck W/O And Then With Contra st ML 01/01/2020 12:00:00 AM EDT [facility] ([facility]) Office Visit, Est Pt., Level 3 FC 11/16/2019 12:00:00 AM EDT eCW1 ([facility]) Office Visit, Est Pt., Level 3 PC 11/16/2019 12:00:00 AM EDT eCW1 ([facility]) INSERT BLADDER CATH, COMPLEX 11/16/2019 12:00:00 AM ED T eCW1 ([facility]) Office Visit, New Pt., Level 2 FC 08/23/2019 12:00:00 AM EST eCW1 ([facility]) Office Visit, New Pt., Level 3 PC 08/23/2019 12:00:00 AM EST eCW1 ([facility]) POCT GLUCOSE, DOCKED POCT GLUCOSE, DOCKED Routine 06/15/2019 11:39 AM EST 06/15/2019 04:39:[address] [facility] IRON BINDING CAPACITY TOTAL FE BINDING CAPACITY STAT 9 9:31 AM EST 06/15/2019 02:31:00 PM [facility] BLOOD COUNT COMPLETE AUTOMATED CBC STAT 06/15/2019 9:31 A M EST 06/15/2019 02:31:[address] [facility] FERRITIN FERRITIN LEVEL STAT 06/15/2019 9:31 AM EST 06/15/2019 02:31:[address] [facility] DRUG SCREEN QUALITATIVE VANCOMYCIN VANCOMYCIN, TROUGH Routine 06/15/2019 9:31 AM EST 06/15/2019 02:31:00 PM EST [facility] POCT GLUCOSE, DOCKED POCT GLUCOSE, DOCKED Routine 06/15/2019 7:51 AM EST 06/15/2019 12:51:[address] [facility] BLOOD COUNT COMPLETE AUTO&AUTO DIFRNTL WBC COUNT CBC AND DIFFER ENTIAL Routine 06/15/2019 3:15 AM EST 06/15/2019 08:15:[address] [facility] PHOSPHORUS INORGANIC PHOSPHORUS LEVEL Routine 06/15/2019 3:[address] 06/15/2019 08:15:[address] [facility] MAGNESIUM MAGNESIUM LEVEL Routine 06/15/2019 3:15 AM EST 06/15/2019 08:15:[address] [facility] BASIC METABOLIC PANEL CALCIUM TOTAL BASIC METABOLIC PANEL Routi ne 06/15/2019 3:15 AM EST 06/15/2019 08:15:00 AM [facility] GLUCOSE QUANTITATIVE BLOOD XCPT REAGENT STRIP POCT GLUCOSE, DOC KED Routine 06/14/2019 8:36 PM EST 06/15/2019 01:36:[address] [facility] GLUCOSE QUANTITATIVE BLOOD XCPT REAGENT STRIP POCT GLUCOSE, DOC KED Routine 06/14/2019 4:25 PM EST 06/14/2019 09:25:[address] [facility] GLUCOSE QUANTITATIVE BLOOD XCPT REAGENT STRIP POCT GLUCOSE, DOC KED Routine 06/14/2019 11:42 AM EST 06/14/2019 04:42:[address] [facility] BLOOD COUNT COMPLETE AUTOMATED CBC Routine 06/14/2019 8:28 A M EST 06/14/2019 01:28:[address] [facility] PHOSPHORUS INORGANIC PHOSPHORUS LEVEL Routine 06/14/2019 8:[address] 06/14/2019 01:28:[address] [facility] MAGNESIUM MAGNESIUM LEVEL Routine 06/14/2019 8:28 AM EST 06/14/2019 01:28:[address] [facility] BASIC METABOLIC PANEL CALCIUM TOTAL BASIC METABOLIC PANEL Routi ne 06/14/2019 8:28 AM EST 06/14/2019 01:28:00 PM [facility] GLUCOSE QUANTITATIVE BLOOD XCPT REAGENT STRIP POCT GLUCOSE, DOC KED Routine 06/14/2019 7:58 AM EST 06/14/2019 12:58:[address] [facility] GLUCOSE QUANTITATIVE BLOOD XCPT REAGENT STRIP POCT GLUCOSE, DOC KED Routine 06/13/2019 9:04 PM EST 06/14/2019 02:04:[address] [facility] GLUCOSE QUANTITATIVE BLOOD XCPT REAGENT STRIP POCT GLUCOSE, DOC KED Routine 06/13/2019 4:28 PM EST 06/13/2019 09:28:[address] [facility] PICC ULTRASOUND - BEDSIDE PROCEDURE PICC ULTRASOUND - BEDSI DE PROCEDURE Routine 06/13/2019 2:41 PM EST 06/13/2019 07:41:[address] [facility] GLUCOSE QUANTITATIVE BLOOD XCPT REAGENT STRIP POCT GLUCOSE, DOC KED Routine 06/13/2019 11:48 AM EST 06/13/2019 04:48:[address] [facility] BLOOD COUNT COMPLETE AUTO&AUTO DIFRNTL WBC COUNT CBC AND DIFFER ENTIAL Routine 06/13/2019 9:32 AM EST 06/13/2019 02:32:[address] [facility] PHOSPHORUS INORGANIC PHOSPHORUS LEVEL Routine 06/13/2019 9:[address] 06/13/2019 02:32:[address] [facility] MAGNESIUM MAGNESIUM LEVEL Routine 06/13/2019 9:32 AM EST 06/13/2019 02:32:[address] [facility] BASIC METABOLIC PANEL CALCIUM TOTAL BASIC METABOLIC PANEL Routi ne 06/13/2019 9:32 AM EST 06/13/2019 02:32:00 PM [facility] GLUCOSE QUANTITATIVE BLOOD XCPT REAGENT STRIP POCT GLUCOSE, DOC KED Routine 06/13/2019 7:19 AM EST 06/13/2019 12:19:[address] [facility] GLUCOSE QUANTITATIVE BLOOD XCPT REAGENT STRIP POCT GLUCOSE, DOC KED Routine 06/12/2019 9:55 PM EST 06/13/2019 02:55:[address] [facility] GLUCOSE QUANTITATIVE BLOOD XCPT REAGENT STRIP POCT GLUCOSE, DOC KED Routine 06/12/2019 4:31 PM EST 06/12/2019 09:31:[address] [facility] RADEX SPINE LUMBOSACRAL 2/3 VIEWS XR SPINE LUMBAR 2-3 VIEWS 721 00 Routine 06/12/2019 3:41 PM EST 06/12/2019 08:41:[address] [facility] GLUCOSE QUANTITATIVE BLOOD XCPT REAGENT STRIP POCT GLUCOSE, DOC KED Routine 06/12/2019 11:27 AM EST 06/12/2019 04:27:[address] [facility] CUL PRSMPTV PTHGNC ORGANISM SCRN W/COLONY ESTIMJ MRSA CULTURE Routine 06/12/2019 11:25 AM EST 06/12/2019 04:25:[address] [facility] GLUCOSE QUANTITATIVE BLOOD XCPT REAGENT STRIP POCT GLUCOSE, DOC KED Routine 06/12/2019 7:30 AM EST 06/12/2019 12:30:[address] [facility] BLOOD COUNT COMPLETE AUTO&AUTO DIFRNTL WBC COUNT CBC AND DIFFER ENTIAL Routine 06/12/2019 3:21 AM EST 06/12/2019 08:21:[address] [facility] PHOSPHORUS INORGANIC PHOSPHORUS LEVEL Routine 06/12/2019 3:[address] 06/12/2019 08:21:[address] [facility] MAGNESIUM MAGNESIUM LEVEL Routine 06/12/2019 3:21 AM EST 06/12/2019 08:21:[address] [facility] COMPREHENSIVE METABOLIC PANEL COMPREHENSIVE METABOLIC PANEL Rou joni 06/12/2019 3:21 AM EST 06/12/2019 08:21:00 AM [facility] Results ID Date Data Source [id number] 03/24/2020 07:15:41 AM EDT [facility] Name Value Range Interpretation Code Description Data Tania rce(s) Supporting Document(s) Progress Note [facility] FIQHEu1sIsYAArDf23/TRTmuSFAhk0LvJJumNOw1HSqzRSVcN5ZbIWZ9uP5vKKF0HZqCSwGqAjDtRKY2 lbm [file] 1Ne1bpND6I35LZ7bvP5BU3C1lCu6JgY03Tg3d/Ii3b84zakXclB/nn+[employer]+ChB3WYhJmQS+e59LYT4L [file] AvJnKML7HXVpZ7DuTVMsXVZcUH8bBEVJGk9+IIwxiUYyuEfpPAWIZaJ0VrN8XBvsXTLYFz1I ID Date Data Source [id number] 03/16/2020 09:30:46 AM EDT [facility] XR SPINE LUMBAR 4-MORE VIEWS [id number] RESULTInterpreted by:Tanner Klein MDH[facility]HE[facility] SPINECLINICAL STATEMENT: Low back pain.TECHNIQUE: AP, lateral, [...] rce(s) Supporting Document(s) ID Date Data Source [id number] 09/25/2019 04:13:27 PM EDT [facility] XR SPINE LUMBAR 4-MORE VIEWS [id number] RESULTInterpreted by:Leonard Schultz MDLumbar spine 4 viewsINDICATION: Lumbar painCOMPARISON: Thoracic [...] rce(s) Supporting Document(s) ID Date Data Source [id number] 09/24/2019 11:36:26 AM EDT [facility] Name Value Range Interpretation Code Description Data Tania rce(s) Supporting Document(s) Progress Note [facility] WGQCVv2pOdDYTyBx83/VFJxmCWUvs1PnAAujIPo3AAknCQTtM3SmLAU1qD7uFPZ6ZLrYOuZrCkVvYvC1 lbm [file] 7Gknul5vanlkicqJBeBe0mR7Dy/q3rQZpT2NSEH3Secj+sodium chlorite operator/4S8BtEQkmQYjYlb1mdo8xVwTtcnAbO0m [file] W0qgDlBQy6OiD2Sy5VVZXNS4RGDj== ID Date Data Source [id number] 08/04/2019 03:18:58 PM [facility] XR SPINE-ENTIRE THORACIC AND LUMBAR- 2 O R 3 VIEW [id number] RESULTInterpreted by:Sage Shepherd MDEXAM: Entire thoracic and [...] rce(s) Supporting Document(s) ID Date Data Source [id number] 07/30/2019 07:47:45 AM [facility] Name Value Range Interpretation Code Description Data Tania rce(s) Supporting Document(s) Progress Note [facility] GQFWPp7rUhRPTiSn07/ZRDvpCGQvb5FiZLtwGVk8CCtnUTWmE7KjSRJ5kI7sNJP1CBeCTbZcObKaQwNh lbm [file] H+R/Lvhy+Cárdenas/51xta4RD6EAw/1V5gxdL59+bhLGoKLiR8IB3vShezSBfzBV8HMcr86Hw7XW4qS4ZlNx [file] yNVMKoGngGPp2ObRrhOE37PFin1dIV8/WM7oLT+c0VsK8/QWA/Matt+j/sImtrDJW895ixb4nnl33V+svp operations [file] XcS3W5QyAeLfSrRB7TLp3GBrD9ZKD3eDZoKi8MVXP6OrTJRfEcCH9APSv= ID Date Data Source [id number] 07/24/2019 12:01:52 PM EST [facility] Name Value Range Interpretation Code Description Data Tania rce(s) Supporting Document(s) Progress Note [facility] JTKIDn8sGmFNWdAh00/XSQhiMFEfd7RwOLyqAQh6OMnoRAKaG1VyVRW6fG1hZEV5NGyFVqJkOtQbMWG5 lbm [file] JVNPA4DEHn== ID Date Data Source [id number] 07/18/2019 02:50:00 PM [facility] Name Value Range Interpretation Code Description Data Tania rce(s) Supporting Document(s) Erythrocyte sedimentation rate by Westergren method 41 mm/hr 0 - 20 H [facility] SED RATE REENTER 41 [facility] ID Date Data Source [id number] 07/18/2019 02:31:00 PM EST [facility] Name Value Range Interpretation Code Description Data Tania rce(s) Supporting Document(s) COMPREHENSIVE METABOLIC PANEL [facility] COMPREHENSIVE METABOLIC PANEL Sodium [Moles/volume] in Serum or Plasma 140 mEq/L 134 - 153 [facility] Potassium [Moles/volume] in Serum or Plasma 4.8 mEq/L 3.6 - 5.0 [facility] Chloride [Moles/volume] in Serum or Plasma 103 mEq/L 98 - 107 [facility] Carbon dioxide, total [Moles/volume] in Serum or Plasma 25 MEQ/L 22 - 30 [facility] Glucose [Mass/volume] in Serum or Plasma 145 MG/DL 65 - 110 H [facility] BUN 23 MG/DL 7 - 21 H [facility] Creatinine [Mass/volume] in Serum or Plasma 0.9 MG/DL 0.7 - 1.5 [facility] BUN/CREAT 26 8 - 27 [facility] Protein [Mass/volume] in Serum or Plasma 6.7 G/DL 6.3 - 8.2 [facility] Albumin [Mass/volume] in Serum or Plasma 3.7 G/DL 3.9 - 5.0 L [facility] Globulin [Mass/volume] in Serum by calculation 3.0 GM/DL 2.4 - 3.2 [facility] A/G RATIO 1.2 0.8 - 2.0 [facility] Calcium [Mass/volume] in Serum or Plasma 9.3 MG/DL 8.4 - 10.2 [facility] Bilirubin.total [Mass/volume] in Serum or Plasma 0.7 MG/DL 0.2 - 1.3 [facility] Alkaline phosphatase [Enzymatic activity/volume] in Serum or Plasma 175 U/L 38 - 126 H [facility] Aspartate aminotransferase [Enzymatic activity/volume] in Serum or Plasma 17 U/L 5 - 40 [facility] Alanine aminotransferase [Enzymatic activity/volume] in Seru m or Plasma 16 U/L 7 - 56 [facility] Anion gap 3 in Serum or Plasma 12.0 mmol/L 8.0 - 16.0 [facility] AGE 84 yrs [facility] al NON-AA GFR >60 mL/min [facility] ital AFR AMER GFR >60 mL/min [facility] Male GFR In terprentation 20-49 [...] >32 mL/min Normal ID Date Data Source [id number] 07/18/2019 02:22:00 PM [facility] Name Value Range Interpretation Code Description Data Tania rce(s) Supporting Document(s) CBC NO DIFF [facility] ital COMPLETE BLOOD COUNT Leukocytes [#/volume] in Blood by Automated count 7.9 10^3/uL 4.2 - 1 1.0 [facility] Erythrocytes [#/volume] in Blood by Automated count 3.22 10^6/uL 4. 50 - 6.30 L [facility] Hemoglobin [Mass/volume] in Blood 9.7 g/dL 14.0 - 16.0 L [facility] Hematocrit [Volume Fraction] of Blood by Automated count 31.3 % 4 1.0 - 51.0 L [facility] Erythrocyte mean corpuscular volume [Entitic volume] by Auto mated count 97.2 fL 80.0 - 94.0 H [facility] Erythrocyte mean corpuscular hemoglobin [Entitic mass] by Automated count 30.1 pg 27.0 - 34.0 [facility] Erythrocyte mean corpuscular hemoglobin concentration [Mass/volume] by Automated count 31.0 g/dL 31.0 - 36.0 [facility] Erythrocyte distribution width [Ratio] by Automated count 15.2 % 11.5 - 14.8 H [facility] Platelets [#/volume] in Blood by Automated count 319 10^3/uL 150 - 45 0 [facility] Platelet mean volume [Entitic volume] in Blood by Automated count 10.5 fL 7.4 - 10.4 H [facility] ID Date Data Source [id number] 07/10/2019 02:23:10 PM [facility] Name Value Range Interpretation Code Description Data Tania rce(s) Supporting Document(s) Progress Note [facility] JBTHCs7xLnOVRzJx03/XQRpgJYBtq7GxDIasAXp9PKulVWMoR8XsKRS7wI5jOUR9BAxAQdPkBnZqUWBj lbm [file] 7e4eMB++bW4xO255v66lS+664BbfG09lyoP/4H2vnP Af+IluBiUTrXf30C+S1F4s4vPP9HHqO/RTlF8zKKDVSxurpshBxdvA/5a/FZS2v+NSThy8v5iGuC+Vup tXG7xgNCqy6ExjYyIw+Bt8M5X0JiVJ+U+PNp2YwUN0araAq08qRsBrw97ib8jG/A3iuw7o5iK0Q5p+38 N40PzN+2zyeVhH2O/APt/JkDU6dcNs47gWx8pDZbZw BoAdMIgYRznX/q9AH5+jxSQ2YYlZOJuVnuuy6+a+sKQ940hCiRLrVJC+Kz2Yh0s3Nx2yh53Q4mEJhvH3 zPUPg5fv2IfZ+2x81J4Bq1gs9A2oKwUdQ052OoltR+l1bBjdkqu31/D/Academic Interventionist+e/B/aD4v3oWesrA84O+B [file] L2HXRxAXKjLuP2BrOkCN4HCp9CZcL2TGJ9qBKaXu6ZBgJgXcFNFwMcDV0HCNt= ID Date Data Source [id number] 07/10/2019 12:23:00 PM [facility] Name Value Range Interpretation Code Description Data Tania rce(s) Supporting Document(s) Erythrocyte sedimentation rate by Westergren method 25 mm/hr 0 - 20 H [facility] SED RATE REENTER 25 [facility] ID Date Data Source [id number] 07/10/2019 12:07:00 PM [facility] Name Value Range Interpretation Code Description Data Tania rce(s) Supporting Document(s) C reactive protein [Mass/volume] in Serum or Plasma by High sensitivity method 11.53 MG/L 1.00 - 3.00 H [facility] CDC/S HS-CRP CUT-OFF: RELATIVE RISK: <1.0 mg/L Low 1.0 - 3.0 mg/L Average >3.0 mg/L High Optimally, the average of HS-CRP results repeated two weeks apart should be used for risk assessment. ID Date Data Source [id number] 07/10/2019 12:07:00 PM [facility] Name Value Range Interpretation Code Description Data Tania rce(s) Supporting Document(s) COMPREHENSIVE METABOLIC PANEL [facility] COMPREHENSIVE METABOLIC PANEL Sodium [Moles/volume] in Serum or Plasma 138 mEq/L 134 - 153 [facility] Potassium [Moles/volume] in Serum or Plasma 4.7 mEq/L 3.6 - 5.0 [facility] Chloride [Moles/volume] in Serum or Plasma 103 mEq/L 98 - 107 [facility] Carbon dioxide, total [Moles/volume] in Serum or Plasma 26 MEQ/L 22 - 30 [facility] Glucose [Mass/volume] in Serum or Plasma 183 MG/DL 65 - 110 H [facility] BUN 17 MG/DL 7 - 21 [facility] al Creatinine [Mass/volume] in Serum or Plasma 0.9 MG/DL 0.7 - 1.5 [facility] BUN/CREAT 19 8 - 27 [facility] al Protein [Mass/volume] in Serum or Plasma 6.3 G/DL 6.3 - 8.2 [facility] Albumin [Mass/volume] in Serum or Plasma 3.3 G/DL 3.9 - 5.0 L [facility] Globulin [Mass/volume] in Serum by calculation 3.0 GM/DL 2.4 - 3.2 [facility] A/G RATIO 1.1 0.8 - 2.0 [facility] Calcium [Mass/volume] in Serum or Plasma 9.0 MG/DL 8.4 - 10.2 [facility] Bilirubin.total [Mass/volume] in Serum or Plasma 0.7 MG/DL 0.2 - 1.3 [facility] Alkaline phosphatase [Enzymatic activity/volume] in Serum or Plasma 168 U/L 38 - 126 H [facility] Aspartate aminotransferase [Enzymatic activity/volume] in Serum or Plasma 15 U/L 5 - 40 [facility] Alanine aminotransferase [Enzymatic activity/volume] in Seru m or Plasma 15 U/L 7 - 56 [facility] Anion gap 3 in Serum or Plasma 9.0 mmol/L 8.0 - 16.0 [facility] AGE 84 yrs [facility] NON-AA GFR >60 mL/min [facility] ital AFR AMER GFR >60 mL/min [facility] Male GFR In terprentation 20-49 [...] >32 mL/min Normal ID Date Data Source [id number] 07/10/2019 11:56:00 AM EST [facility] Name Value Range Interpretation Code Description Data Tania rce(s) Supporting Document(s) CBC W/AUTOMATED DIFF [facility] COMPLETE BLOOD COUNT Leukocytes [#/volume] in Blood by Automated count 6.4 10^3/uL 4.2 - 1 1.0 [facility] Erythrocytes [#/volume] in Blood by Automated count 2.87 10^6/uL 4. 50 - 6.30 L [facility] Hemoglobin [Mass/volume] in Blood 8.7 g/dL 14.0 - 16.0 L [facility] Hematocrit [Volume Fraction] of Blood by Automated count 27.7 % 4 1.0 - 51.0 L [facility] Erythrocyte mean corpuscular volume [Entitic volume] by Auto mated count 96.5 fL 80.0 - 94.0 H [facility] Erythrocyte mean corpuscular hemoglobin [Entitic mass] by Automated count 30.3 pg 27.0 - 34.0 [facility] Erythrocyte mean corpuscular hemoglobin concentration [Mass/volume] by Automated count 31.4 g/dL 31.0 - 36.0 [facility] Erythrocyte distribution width [Ratio] by Automated count 15.2 % 11.5 - 14.8 H [facility] Platelets [#/volume] in Blood by Automated count 290 10^3/uL 150 - 45 0 [facility] Platelet mean volume [Entitic volume] in Blood by Automated count 10.0 fL 7.4 - 10.4 [facility] Neutrophils/100 leukocytes in Blood by Automated count 73.5 % 37. 0 - 80.0 [facility] Lymphocytes/100 leukocytes in Blood by Manual count 14.8 % 25.0 - 40.0 L [facility] Monocytes/100 leukocytes in Blood by Automated count 5.6 % 3.0 - 8.0 [facility] Eosinophils/100 leukocytes in Blood by Automated count 5.0 % 0.0 - 7.0 [facility] Basophils/100 leukocytes in Blood by Automated count 0.8 % 0.0 - 2.0 [facility] %IG 0.3 % 0.0 - 0.0 H [facility] al %NRBC 0.0 % 0.0 - 0.0 [facility] al Neutrophils [#/volume] in Blood by Automated count 4.71 10^3/uL 2.00 - 6.90 [facility] Lymphocytes [#/volume] in Blood by Automated count 0.95 10^3/uL 0.60 - 3.40 [facility] Monocytes [#/volume] in Blood by Automated count 0.36 10^3/uL 0.00 - 0.90 [facility] Eosinophils [#/volume] in Blood by Automated count 0.32 10^3/uL 0.00 - 0.70 [facility] Basophils [#/volume] in Blood by Automated count 0.05 10^3/uL 0.00 - 0.20 [facility] #IG 0.02 10^3/uL 0.00 - 0.10 [facility] ospital #NRBC 0.00 10^3/uL 0.00 - 0.00 [facility] ospital MANUAL DIFF NOT INDICATED [facility] RBC MORPH NOT INDICATED [facility] spital ID Date Data Source [id number] 07/03/2019 05:15:00 PM EST [facility] Name Value Range Interpretation Code Description Data Tania rce(s) Supporting Document(s) C reactive protein [Mass/volume] in Serum or Plasma by High sensitivity method 14.39 MG/L 1.00 - 3.00 H [facility] CDC/AHS HS-CRP CUT-OFF: RELATIVE RISK: <1.0 mg/L Low 1.0 - 3.0 mg/L Average >3.0 mg/L High Optimally, the average of HS-CRP results repeated two weeks apart should be used for risk assessment. ID Date Data Source [id number] 07/03/2019 05:15:00 PM EST [facility] Name Value Range Interpretation Code Description Data Tania rce(s) Supporting Document(s) COMPREHENSIVE METABOLIC PANEL [facility] COMPREHENSIVE METABOLIC PANEL Sodium [Moles/volume] in Serum or Plasma 137 mEq/L 134 - 153 [facility] Potassium [Moles/volume] in Serum or Plasma 4.9 mEq/L 3.6 - 5.0 [facility] Chloride [Moles/volume] in Serum or Plasma 100 mEq/L 98 - 107 [facility] Carbon dioxide, total [Moles/volume] in Serum or Plasma 23 MEQ/L 22 - 30 [facility] Glucose [Mass/volume] in Serum or Plasma 149 MG/DL 65 - 110 H [facility] BUN 18 MG/DL 7 - 21 [facility] Creatinine [Mass/volume] in Serum or Plasma 0.9 MG/DL 0.7 - 1.5 [facility] BUN/CREAT 20 8 - 27 [facility] Protein [Mass/volume] in Serum or Plasma 6.3 G/DL 6.3 - 8.2 [facility] Albumin [Mass/volume] in Serum or Plasma 3.2 G/DL 3.9 - 5.0 L [facility] Globulin [Mass/volume] in Serum by calculation 3.1 GM/DL 2.4 - 3.2 [facility] A/G RATIO 1.0 0.8 - 2.0 [facility] Calcium [Mass/volume] in Serum or Plasma 8.8 MG/DL 8.4 - 10.2 [facility] Bilirubin.total [Mass/volume] in Serum or Plasma 0.7 MG/DL 0.2 - 1.3 [facility] Alkaline phosphatase [Enzymatic activity/volume] in Serum or Plasma 161 U/L 38 - 126 H [facility] Aspartate aminotransferase [Enzymatic activity/volume] in Serum or Plasma 18 U/L 5 - 40 [facility] Alanine aminotransferase [Enzymatic activity/volume] in Seru m or Plasma 15 U/L 7 - 56 [facility] Anion gap 3 in Serum or Plasma 14.0 mmol/L 8.0 - 16.0 [facility] AGE 84 yrs [facility] NON-AA GFR >60 mL/min [facility] AFR AMER GFR >60 mL/min [facility] Male GFR In terprentation 20-49 [...] >32 mL/min Normal ID Date Data Source [id number] 07/03/2019 05:04:00 PM [facility] Name Value Range Interpretation Code Description Data Tania rce(s) Supporting Document(s) Erythrocyte sedimentation rate by Westergren method 60 mm/hr 0 - 20 H [facility] SED RATE REENTER 60 [facility] ID Date Data Source [id number] 07/03/2019 04:46:00 PM [facility] Name Value Range Interpretation Code Description Data Tania rce(s) Supporting Document(s) CBC W/AUTOMATED DIFF [facility] COMPLETE BLOOD COUNT Leukocytes [#/volume] in Blood by Automated count 8.7 10^3/uL 4.2 - 1 1.0 [facility] Erythrocytes [#/volume] in Blood by Automated count 2.62 10^6/uL 4. 50 - 6.30 L [facility] Hemoglobin [Mass/volume] in Blood 8.0 g/dL 14.0 - 16.0 L [facility] Hematocrit [Volume Fraction] of Blood by Automated count 24.9 % 4 1.0 - 51.0 L [facility] Erythrocyte mean corpuscular volume [Entitic volume] by Auto mated count 95.0 fL 80.0 - 94.0 H [facility] Erythrocyte mean corpuscular hemoglobin [Entitic mass] by Automated count 30.5 pg 27.0 - 34.0 [facility] Erythrocyte mean corpuscular hemoglobin concentration [Mass/volume] by Automated count 32.1 g/dL 31.0 - 36.0 [facility] Erythrocyte distribution width [Ratio] by Automated count 15.1 % 11.5 - 14.8 H [facility] Platelets [#/volume] in Blood by Automated count 310 10^3/uL 150 - 45 0 [facility] Platelet mean volume [Entitic volume] in Blood by Automated count 10.0 fL 7.4 - 10.4 [facility] Neutrophils/100 leukocytes in Blood by Automated count 70.7 % 37. 0 - 80.0 [facility] Lymphocytes/100 leukocytes in Blood by Manual count 18.2 % 25.0 - 40.0 L [facility] Monocytes/100 leukocytes in Blood by Automated count 6.2 % 3.0 - 8.0 [facility] Eosinophils/100 leukocytes in Blood by Automated count 4.0 % 0.0 - 7.0 [facility] Basophils/100 leukocytes in Blood by Automated count 0.7 % 0.0 - 2.0 [facility] %IG 0.2 % 0.0 - [facility] % 0.0 - 0.0 [facility] al Neutrophils [#/volume] in Blood by Automated count 6.16 10^3/uL 2.00 - 6.90 [facility] Lymphocytes [#/volume] in Blood by Automated count 1.59 10^3/uL 0.60 - 3.40 [facility] Monocytes [#/volume] in Blood by Automated count 0.54 10^3/uL 0.00 - 0.90 [facility] Eosinophils [#/volume] in Blood by Automated count 0.35 10^3/uL 0.00 - 0.70 [facility] Basophils [#/volume] in Blood by Automated count 0.06 10^3/uL 0.00 - 0.20 [facility] #IG 0.02 10^3/uL 0.00 - 0.10 [facility] #NRBC 0.00 10^3/uL 0.00 - 0.00 [facility] MANUAL DIFF NOT INDICATED [facility] RBC MORPH NOT INDICATED [facility] spital ID Date Data Source [id number] 06/29/2019 07:35:00 PM EST [facility] Name Value Range Interpretation Code Description Data Tania rce(s) Supporting Document(s) COMPREHENSIVE METABOLIC PANEL [facility] COMPREHENSIVE METABOLIC PANEL Sodium [Moles/volume] in Serum or Plasma 136 mEq/L 134 - 153 [facility] Potassium [Moles/volume] in Serum or Plasma 4.8 mEq/L 3.6 - 5.0 [facility] Chloride [Moles/volume] in Serum or Plasma 99 mEq/L 98 - 107 [facility] Carbon dioxide, total [Moles/volume] in Serum or Plasma 26 MEQ/L 22 - 30 [facility] Glucose [Mass/volume] in Serum or Plasma 126 MG/DL 65 - 110 H [facility] BUN 12 MG/DL 7 - 21 [facility] al Creatinine [Mass/volume] in Serum or Plasma 0.9 MG/DL 0.7 - 1.5 [facility] BUN/CREAT 13 8 - 27 [facility] Protein [Mass/volume] in Serum or Plasma 6.7 G/DL 6.3 - 8.2 [facility] Albumin [Mass/volume] in Serum or Plasma 3.2 G/DL 3.9 - 5.0 L [facility] Globulin [Mass/volume] in Serum by calculation 3.5 GM/DL 2.4 - 3.2 H [facility] A/G RATIO 0.9 0.8 - 2.0 [facility] Calcium [Mass/volume] in Serum or Plasma 9.0 MG/DL 8.4 - 10.2 [facility] Bilirubin.total [Mass/volume] in Serum or Plasma <0.7 MG/DL 0.2 - 1.3 [facility] Alkaline phosphatase [Enzymatic activity/volume] in Serum or Plasma 159 U/L 38 - 126 H [facility] Aspartate aminotransferase [Enzymatic activity/volume] in Serum or Plasma 20 U/L 5 - 40 [facility] Alanine aminotransferase [Enzymatic activity/volume] in Seru m or Plasma 17 U/L 7 - 56 [facility] Anion gap 3 in Serum or Plasma 11.0 mmol/L 8.0 - 16.0 [facility] AGE 84 yrs [facility] NON-AA GFR >60 mL/min [facility] AFR AMER GFR >60 mL/min [facility] Male GFR In terprentation 20-49 [...] >32 mL/min Normal ID Date Data Source [id number] 06/26/2019 05:25:00 PM [facility] Name Value Range Interpretation Code Description Data Tania rce(s) Supporting Document(s) C reactive protein [Mass/volume] in Serum or Plasma by High sensitivity method 67.29 MG/L 1.00 - 3.00 H [facility] CDC/[facility] HS-CRP CUT-OFF: RELATIVE RISK: <1.0 mg/L Low 1.0 - 3.0 mg/L Average >3.0 mg/L High Optimally, the average of HS-CRP results repeated two weeks apart should be used for risk assessment. ID Date Data Source [id number] 06/26/2019 05:15:00 PM [facility] Name Value Range Interpretation Code Description Data Tania rce(s) Supporting Document(s) Erythrocyte sedimentation rate by Westergren method 50 mm/hr 0 - 20 H [facility] SED RATE REENTER 50 [facility] ID Date Data Source [id number] 06/26/2019 04:17:00 PM [facility] Name Value Range Interpretation Code Description Data Tania rce(s) Supporting Document(s) COMPREHENSIVE METABOLIC PANEL [facility] COMPREHENSIVE METABOLIC PANEL Sodium [Moles/volume] in Serum or Plasma 139 mEq/L 134 - 153 [facility] Potassium [Moles/volume] in Serum or Plasma 4.3 mEq/L 3.6 - 5.0 [facility] Chloride [Moles/volume] in Serum or Plasma 99 mEq/L 98 - 107 [facility] Carbon dioxide, total [Moles/volume] in Serum or Plasma 27 MEQ/L 22 - 30 [facility] Glucose [Mass/volume] in Serum or Plasma 264 MG/DL 65 - 110 H [facility] BUN 11 MG/DL 7 - 21 [facility] Creatinine [Mass/volume] in Serum or Plasma 1.0 MG/DL 0.7 - 1.5 [facility] BUN/CREAT 11 8 - 27 [facility] Protein [Mass/volume] in Serum or Plasma 6.3 G/DL 6.3 - 8.2 [facility] Albumin [Mass/volume] in Serum or Plasma 3.2 G/DL 3.9 - 5.0 L [facility] Globulin [Mass/volume] in Serum by calculation 3.1 GM/DL 2.4 - 3.2 [facility] A/G RATIO 1.0 0.8 - 2.0 [facility] Calcium [Mass/volume] in Serum or Plasma 8.7 MG/DL 8.4 - 10.2 [facility] Bilirubin.total [Mass/volume] in Serum or Plasma <0.7 MG/DL 0.2 - 1.3 [facility] Alkaline phosphatase [Enzymatic activity/volume] in Serum or Plasma 153 U/L 38 - 126 H [facility] Aspartate aminotransferase [Enzymatic activity/volume] in Serum or Plasma 24 U/L 5 - 40 [facility] Alanine aminotransferase [Enzymatic activity/volume] in Seru m or Plasma 18 U/L 7 - 56 [facility] Anion gap 3 in Serum or Plasma 13.0 mmol/L 8.0 - 16.0 [facility] AGE 84 yrs [facility] al NON-AA GFR >60 mL/min [facility] ital AFR AMER GFR >60 mL/min [facility] Male GFR In terprentation 20-49 [...] >32 mL/min Normal ID Date Data Source [id number] 06/26/2019 03:52:00 PM EST [facility] Name Value Range Interpretation Code Description Data Tania rce(s) Supporting Document(s) CBC W/AUTOMATED DIFF [facility] COMPLETE BLOOD COUNT Leukocytes [#/volume] in Blood by Automated count 9.8 10^3/uL 4.2 - 1 1.0 [facility] Erythrocytes [#/volume] in Blood by Automated count 2.55 10^6/uL 4. 50 - 6.30 L [facility] Hemoglobin [Mass/volume] in Blood 7.8 g/dL 14.0 - 16.0 L [facility] Hematocrit [Volume Fraction] of Blood by Automated count 24.2 % 4 1.0 - 51.0 L [facility] Erythrocyte mean corpuscular volume [Entitic volume] by Auto mated count 94.9 fL 80.0 - 94.0 H [facility] Erythrocyte mean corpuscular hemoglobin [Entitic mass] by Automated count 30.6 pg 27.0 - 34.0 [facility] Erythrocyte mean corpuscular hemoglobin concentration [Mass/volume] by Automated count 32.2 g/dL 31.0 - 36.0 [facility] Erythrocyte distribution width [Ratio] by Automated count 15.4 % 11.5 - 14.8 H [facility] Platelets [#/volume] in Blood by Automated count 434 10^3/uL 150 - 45 0 [facility] Platelet mean volume [Entitic volume] in Blood by Automated count 9.6 fL 7.4 - 10.4 [facility] Neutrophils/100 leukocytes in Blood by Automated count 79.3 % 37. 0 - 80.0 [facility] Lymphocytes/100 leukocytes in Blood by Manual count 13.3 % 25.0 - 40.0 L [facility] Monocytes/100 leukocytes in Blood by Automated count 4.8 % 3.0 - 8.0 [facility] Eosinophils/100 leukocytes in Blood by Automated count 1.9 % 0.0 - 7.0 [facility] Basophils/100 leukocytes in Blood by Automated count 0.4 % 0.0 - 2.0 [facility] %IG 0.3 % 0.0 - 0.0 H [facility] %NRBC 0.0 % 0.0 - 0.0 [facility] Neutrophils [#/volume] in Blood by Automated count 7.79 10^3/uL 2.00 - 6.90 H [facility] Lymphocytes [#/volume] in Blood by Automated count 1.31 10^3/uL 0.60 - 3.40 [facility] Monocytes [#/volume] in Blood by Automated count 0.47 10^3/uL 0.00 - 0.90 [facility] Eosinophils [#/volume] in Blood by Automated count 0.19 10^3/uL 0.00 - 0.70 [facility] Basophils [#/volume] in Blood by Automated count 0.04 10^3/uL 0.00 - 0.20 [facility] #IG 0.03 10^3/uL 0.00 - 0.10 [facility] #NRBC 0.00 10^3/uL 0.00 - 0.00 [facility] MANUAL DIFF NOT INDICATED [facility] RBC MORPH NOT INDICATED [facility] ID Date Data Source [id number] 06/26/2019 08:43:26 AM EST [facility] Name Value Range Interpretation Code Description Data Tania rce(s) Supporting Document(s) Progress Note [facility] UMXWTo6jOaRPLsZm64/MAXtyUNRwf4BwDAmcAPx6BXzkYWTbZ4WvGKR9mT6lLHY3JJzTSqPmGMyjDuBe lbm RlUkoQDmVrYHWoWclQDaHfYGjxWewgcODuMG2OlXS2DPDiT18eZKYsXPKwB3CaMQNnZQl+Bl1BCCXtqK FqEE2SYqwM5B1Xv0jBBF4EvV/PBVSXB6dG7mjCRWR12P57O5p5mO9zM59KjTJ8VjpOIBpN/h6vZdcGMT +Rz9XUZGl6F1FLl81R6/L5GWZVvPf//mDjFoG0hfm9 f/9nklkzPDd//pNNTEmtpyGCr3lJvsT6fXmBF3d/KYm1L22tuWFfMCV1So9Z01vmWf7L4qgtXjYh9FX8 15wQl7cogg6pB76MnUUtpr4rC+EGUwvAjw1Up+FlGE26SNDxhHtkxFMGYlnA1mBK6tQeWEmseae3pKAv tfwqNGW3p6dw8f6Ic6FvdS55vAT5GFPQX3xs3JSB01 qw9yXyoxQZ+14c+Parker/o9xTvWYV/g0AOvz6StKvV3qhFems29POxmsu3PdF11TkaZI0A1vIYNAn1O+zT [file] ID Date Data Source [id number] 06/22/2019 07:01:17 AM EST [facility] Name Value Range Interpretation Code Description Data Tania rce(s) Supporting Document(s) Operative Note [facility] BGGMLa7fRyPEOhUf67/GJSfjDACkr4CnKOsxZHq1POtgCHBhE0VmRQR8jA4lGKF0JSyIGmUcPMdoGgA6 lbm [file] TzazE9hkAuUDkeZbG9KZ9EIBLWM7ZULo== ID Date Data Source [id number] 06/19/2019 05:39:00 PM [facility] Name Value Range Interpretation Code Description Data Tania rce(s) Supporting Document(s) Erythrocyte sedimentation rate by Westergren method 50 mm/hr 0 - 20 H [facility] SED RATE REENTER 50 [facility] ID Date Data Source [id number] 06/19/2019 04:56:00 PM [facility] Name Value Range Interpretation Code Description Data Tania rce(s) Supporting Document(s) C reactive protein [Mass/volume] in Serum or Plasma by High sensitivity method 135.58 MG/L 1.00 - 3.00 H [facility] CDC/S HS-CRP CUT-OFF: RELATIVE RISK: <1.0 mg/L Low 1.0 - 3.0 mg/L Average >3.0 mg/L High Optimally, the average of HS-CRP results repeated two weeks apart should be used for risk assessment. ID Date Data Source [id number] 06/19/2019 04:56:00 PM [facility] Name Value Range Interpretation Code Description Data Tania rce(s) Supporting Document(s) CBC W/AUTOMATED DIFF [facility] COMPLETE BLOOD COUNT Leukocytes [#/volume] in Blood by Automated count 11.3 10^3/uL 4.2 - 11.0 H [facility] Erythrocytes [#/volume] in Blood by Automated count 2.69 10^6/uL 4. 50 - 6.30 L [facility] Hemoglobin [Mass/volume] in Blood 8.0 g/dL 14.0 - 16.0 L [facility] Hematocrit [Volume Fraction] of Blood by Automated count 25.1 % 4 1.0 - 51.0 L [facility] Erythrocyte mean corpuscular volume [Entitic volume] by Auto mated count 93.3 fL 80.0 - 94.0 [facility] Erythrocyte mean corpuscular hemoglobin [Entitic mass] by Automated count 29.7 pg 27.0 - 34.0 [facility] Erythrocyte mean corpuscular hemoglobin concentration [Mass/volume] by Automated count 31.9 g/dL 31.0 - 36.0 [facility] Erythrocyte distribution width [Ratio] by Automated count 15.0 % 11.5 - 14.8 H [facility] Platelets [#/volume] in Blood by Automated count 439 10^3/uL 150 - 45 0 [facility] Platelet mean volume [Entitic volume] in Blood by Automated count 9.5 fL 7.4 - 10.4 [facility] Neutrophils/100 leukocytes in Blood by Automated count 79.7 % 37. 0 - 80.0 [facility] Lymphocytes/100 leukocytes in Blood by Manual count 13.6 % 25.0 - 40.0 L [facility] Monocytes/100 leukocytes in Blood by Automated count 5.7 % 3.0 - 8.0 [facility] Eosinophils/100 leukocytes in Blood by Automated count 0.4 % 0.0 - 7.0 [facility] Basophils/100 leukocytes in Blood by Automated count 0.2 % 0.0 - 2.0 [facility] %IG 0.4 % 0.0 - 0.0 H [facility] %NRBC 0.0 % 0.0 - 0.0 [facility] al Neutrophils [#/volume] in Blood by Automated count 9.02 10^3/uL 2.00 - 6.90 H [facility] Lymphocytes [#/volume] in Blood by Automated count 1.54 10^3/uL 0.60 - 3.40 [facility] Monocytes [#/volume] in Blood by Automated count 0.64 10^3/uL 0.00 - 0.90 [facility] Eosinophils [#/volume] in Blood by Automated count 0.05 10^3/uL 0.00 - 0.70 [facility] Basophils [#/volume] in Blood by Automated count 0.02 10^3/uL 0.00 - 0.20 [facility] #IG 0.04 10^3/uL 0.00 - 0.10 [facility] #NRBC 0.00 10^3/uL 0.00 - 0.00 [facility] MANUAL DIFF NOT INDICATED [facility] RBC MORPH NOT INDICATED [facility] ID Date Data Source [id number] 06/19/2019 04:40:00 PM EST [facility] Name Value Range Interpretation Code Description Data Tania rce(s) Supporting Document(s) COMPREHENSIVE METABOLIC PANEL [facility] COMPREHENSIVE METABOLIC PANEL Sodium [Moles/volume] in Serum or Plasma 133 mEq/L 134 - 153 L [facility] Potassium [Moles/volume] in Serum or Plasma 5.0 mEq/L 3.6 - 5.0 [facility] Chloride [Moles/volume] in Serum or Plasma 99 mEq/L 98 - 107 [facility] Carbon dioxide, total [Moles/volume] in Serum or Plasma 20 MEQ/L 22 - 30 L [facility] Glucose [Mass/volume] in Serum or Plasma 271 MG/DL 65 - 110 H [facility] BUN 27 MG/DL 7 - 21 H [facility] al Creatinine [Mass/volume] in Serum or Plasma 1.2 MG/DL 0.7 - 1.5 [facility] BUN/CREAT 23 8 - 27 [facility] Protein [Mass/volume] in Serum or Plasma 5.7 G/DL 6.3 - 8.2 L [facility] Albumin [Mass/volume] in Serum or Plasma 2.9 G/DL 3.9 - 5.0 L [facility] Globulin [Mass/volume] in Serum by calculation 2.8 GM/DL 2.4 - 3.2 [facility] A/G RATIO 1.0 0.8 - 2.0 [facility] Calcium [Mass/volume] in Serum or Plasma 8.6 MG/DL 8.4 - 10.2 [facility] Bilirubin.total [Mass/volume] in Serum or Plasma <0.7 MG/DL 0.2 - 1.3 [facility] Alkaline phosphatase [Enzymatic activity/volume] in Serum or Plasma 119 U/L 38 - 126 [facility] Aspartate aminotransferase [Enzymatic activity/volume] in Serum or Plasma 19 U/L 5 - 40 [facility] Alanine aminotransferase [Enzymatic activity/volume] in Seru m or Plasma 14 U/L 7 - 56 [facility] Anion gap 3 in Serum or Plasma 14.0 mmol/L 8.0 - 16.0 [facility] AGE 84 yrs [facility] NON-AA GFR >60 mL/min [facility] AFR AMER GFR >60 mL/min [facility] Male GFR In terprentation 20-49 [...] >32 mL/min Normal ID Date Data Source [id number] 06/19/2019 04:38:00 PM [facility] Name Value Range Interpretation Code Description Data Tania rce(s) Supporting Document(s) Vancomycin [Mass/volume] in Serum or Plasma --trough 17.3 ug/mL [facility] TROUG H First trough is drawn 30 minutes prior to fourth dose. If patient is not hemodynamically stable, a trough is obtained as deemed medically necessary. If patient is hemodynamically stable, a trough should be drawn once a week. The trough is drawn 30 minutes prior to the next dose. Mild Infections Trough 10-15 mg/L Severe Infections Trough 15-20 mg/L [employer] Infections Trough 20-25 mg/L *Severe Infections - Endocarditis, Osteomyelitis, Hospital Acquired Pneumonia, Sepsis ID Date Data Source [id number] 06/18/2019 12:41:02 PM [facility] Name Value Range Interpretation Code Description Data Tania rce(s) Supporting Document(s) History and Physical [facility] CGBATs9pMcTLNtQf75/COVsxPVXeu6UeZFtsFHe9MZltNEIwS1ZlZEP3tD0pYIL0PHeCYhFdPRfhKvYu [facility] [file] ICAgICAgICAgICAgICAgICAgICAgICAgICAgICAgICAgICAgICAgICAgICAgICAgICAgICAgICAgICAg ICAgICAgICAgICANCiAgICAgICAgICAgICAgICAgIC AgICAgICAgICAgICAgICAgICAgICAgICAgICAgICAgICAgICAgICAgICAgICAgICAgICAgICAgICAgIC AgICAgICAgICAgICAgICAgICAgICANCiAgICAgICAgICAgICAgICAgICAgICAgICAgICAgICAgICAgIC AgICAgICAgICAgICAgICAgICAgICAgICAgICAgICAg ICAgICAgICAgICAgICAgICAgICAgICAgICAgICAgICANCiAgICAgICAgICAgICAgICAgICAgICAgICAg ICAgICAgICAgICAgICAgICAgICAgICAgICAgICAgICAgICAgICAgICAgICAgICAgICAgICAgICAgICAg ICAgICAgICAgICAgICANCiAgICAgICAgICAgICAgIC AgICAgICAgICAgICAgICAgICAgICAgICAgICAgICAgICAgICAgICAgICAgICAgICAgICAgICAgICAgIC AgICAgICAgICAgICAgICAgICAgICAgICANCiAgICAgICAgICAgICAgICAgICAgICAgICAgICAgICAgIC AgICAgICAgICAgICAgICAgICAgICAgICAgICAgICAg ICAgICAgICAgICAgICAgICAgICAgICAgICAgICAgICAgICANCiAgICAgICAgICAgICAgICAgICAgICAg ICAgICAgICAgICAgICAgICAgICAgICAgICAgICAgICAgICAgICAgICAgICAgICAgICAgICAgICAgICAg ICAgICAgICAgICAgICAgICANCiAgICAgICAgICAgIC AgICAgICAgICAgICAgICAgICAgICAgICAgICAgICAgICAgICAgICAgICAgICAgICAgICAgICAgICAgIC AgICAgICAgICAgICAgICAgICAgICAgICAgICANCiAgICAgICAgICAgICAgICAgICAgICAgICAgICAgIC AgICAgICAgICAgICAgICAgICAgICAgICAgICAgICAg ICAgICAgICAgICAgICAgICAgICAgICAgICAgICAgICAgICAgICANCiAgICAgICAgICAgICAgICAgICAg ICAgICAgICAgICAgICAgICAgICAgICAgICAgICAgICAgICAgICAgICAgICAgICAgICAgICAgICAgICAg ICAgICAgICAgICAgICAgICAgICANCjw/eIWzG7jbkM IwfdF0A0faDb7WRl3FSE9hg7LjXEIhZMdyvlWtKmsGTlIqCQDrZuhRCyd7TMmvJK2EkGViC1YgE9DpMB eoPY0DZGXzHZPnhCKzDQAyOPEoScI2OYVcTBwjSI7ZsANoBVvlVKJlWDBdMoHlRTQdWPIwLRJgUKTsCK OBNY4EJbViX4AlwL07DUXIAm8+DQplbmRvYmoNCjMx DFNhj0XsXPn3EO0ZGPIiGzinb8RrKyXiUWXOECvjQQ1SOHL4YFOuIDXkOj0WFVLsF056liTdFH6SQd2S XiOsIQ5esz5BIrHnSVMlUixUZsm7UTcgTG4LfRBvTOwNCuPhNwjbI3LjSPKQlYQ0YKCUQsWJYSF7LDPa TsO7LoUoSWhhEDG2WSCsZX0vIWkyKN5VNAY4HKsvLD WbHICsN5sFUrLjRPLhIrCkbFbpQJ4JDqIhO9AutxYfeWWvLUCfVWQEXe3+DQplbmRvYmoNCjMzIDAgb2 PzTXi9CA4VIFUeYSniLK5VVVIpiH0gLQjgOF7LRxNsHVFcKICYBqRuD96ykDMoVLo9P7PxYrYbXNZgAv lsZXMgPDwvTmFtZXMgWyBdDQogID4+ID4+BYbhSV2U LAathgRsTDIkQx3TCYIpKSHrZR4hGUNpRLNxO3I7iWtbOBKAUgTlT5jlajgsZE1sWZZxF072bBzxemEf KVHkIRMbSf1IJFCpZYX4XGUmxZIeBhQySZVSSIdxRT1OlARbPEP6nF4zXDfrJVOcLBYoS5bPWyNquSbr OV24qCoiajVtbPSgCSs+Gt0FNR1xx0XxIDc5ohSeOM ggWOE7OIfoJEWeJUSdRZIgHOZ6NCK1TYYFPaReOZRjHVYhTQxtEAPmWJXiuz4MPHNeBDRrPVX6ZCMvNI ZjJDLiEQffPTVlCJGuGJg3SDMeVMFoGV7ODwNgKGVlIIFwNGorZLNbCWNbmd2YNMJlZKGfPmI0MtMhAD YlEZQyNVtpOFKwDOHcJMcsQYUaTYYqCB0YDtGxSUQo MOhlZWRmBIMyUFJvyf6JSNNhFVHgXnO1AFMhHYNjUMKaMHkuRBBvMTPaDAnyNKCfGSHgJI6VCxWiHSEd GAE2JeIdWOQcTXBuwr7BOMSsZSJyEhT3TKXzQNVnSTNaGOkgAUYvBYXyZItzRMYvYVGnQK9UXiSaMIBy ATH6BZHwVELpNOJprk7KUZQfWXPuHmh1VlTyWLYoDI EtJWbuHFFaQMJwAIIyVBEzINHxZQ9YSmFvODWoQST4IBgsCCVjWJVtgr0FUGHgZZEeDFQ8QEPkSIZsWK NyNUtuVGGpEZR3Gbi6XJCcPILfHL9TOgRjZMByRDGnFqdnCILyCSPoue6BYSMcBFCgFjDyNmCiFSNgTT VtCTixXFMyLEG7BhP8NRJbFBYsQT9VNaFjPTSvUfbi JCMeXJCeUZJqxx7OJEPaXEOaQPQkLbIwNBXwPZOlRQcnUXQeQVT6QIYxUBFgRPKtTB7EGlEyUUWoBpu8 CgOzYJWfDZVada5AEBImQBKwHBgmFzEzNNAbMARbUDvlRZWmRFT4HSZoHDBpSHMiCB4ORxXaJHToTvFe CQwlPDTtKFSkvw0CHAOeMMTyYLKuYsZsLUQbICTlKQ bpIRVdOIWqXrR9EJUsSWDjPO4TKfKbEUHkRePxHBPuABPqCXJtrb2JAWUcIRBtGgY1TjFkOYZhMDCuJX smARKbJQWpGeDyYNVzSMIzDT2SDeNxEMzhOUVWHgo7TJuhJ8b9PLGqNX3VI1Tdc6ZfZrJtUWTKTQfdVC 3uywZnFGVcOr5LA6fPDri3GZjoHrWzCQU7B8SlP6E8 UneyUAFaFnYjBZI1RiMsAh9uXCl6QTF6FYX1ONUxD6YhJiwnZOJ7U7XnMwZ9UeUwTSMcTiRrJT2LTw0M ZnR1GOA7dCIvLm3JUvA4QdoJTfCeZZ3YKJw= ID Date Data Source [id number] 06/15/2019 02:59:13 PM EST [facility] Name Value Range Interpretation Code Description Data Tania rce(s) Supporting Document(s) Discharge Summary [facility] SDLGOa0pCiRTRoKv04/IHCzdNPAuw9CqZLvvVGw4JHrqAEXaE7YjFIS5nS7pGKP9MMfMIqDeSMlbPtG9 lbm UdJjeUEbPbCMXiHgrVYsXzMLuwUckmcUGiUW5RiXM4WNEgP90fLBUjBTUfG3MhSXX0AAK+Dd2CKRLeeI AlXK4YCynU3J6rn5mPXO8p6K+waNEgAWKZy+Jb8ZdcubTAsa0aDwHNcQiMnu62ejAGrj4cB2PkVr8SAy HxlBVUGCNbUFwZikO385hVWARW/a2uCkT3quFM0H/1 PClfAS3WQ/7R1Hcuz3vd/shuIg+4jnbC/KCdp1P8J2rjJbA/dSRAEIlqRIhulV12eTa4yWnrPZ29TLg/ Y2lNCn2v3RSDCR+GNikQQOfB2lcAGxlENLuuuI5NhwSPzxMz0HMdxOvVg/pgvBeexF6lf2JROv0ctPu6 wrgC0u8URGlH4fFlDwHuNnZbShBC3hmkTzw5YBljBd GUUXeHIf5oxCyQr3hiTGBUYEdH7Zc7rQtSghRV+698bI5y2zCvGfxka7hze5TEYnpkWC4VgF5Jehp1+B QunbyW0S96PktyJRrhcDFk3hO/In3Bxgp6xTiaoH0whyMU3SZ8nuYuo+xetw2Ft5PkUuMMLSU++7NMzS BIheeUjpEzdjyaxTZNLaPhqscZcXvTjdKJVirdnMXf [file] AgICAgICAgICAgICAgICAgICAgICAgICAgICAgICAgICAgICAgICAgICAgICAgICAgICAgICAgICAgIC AgICAgICANCiAgICAgICAgICAgICAgICAgICAgICAg ICAgICAgICAgICAgICAgICAgICAgICAgICAgICAgICAgICAgICAgICAgICAgICAgICAgICAgICAgICAg ICAgICAgICAgICAgICAgICANCiAgICAgICAgICAgICAgICAgICAgICAgICAgICAgICAgICAgICAgICAg ICAgICAgICAgICAgICAgICAgICAgICAgICAgICAgIC AgICAgICAgICAgICAgICAgICAgICAgICAgICANCiAgICAgICAgICAgICAgICAgICAgICAgICAgICAgIC AgICAgICAgICAgICAgICAgICAgICAgICAgICAgICAgICAgICAgICAgICAgICAgICAgICAgICAgICAgIC AgICAgICAgICANCiAgICAgICAgICAgICAgICAgICAg ICAgICAgICAgICAgICAgICAgICAgICAgICAgICAgICAgICAgICAgICAgICAgICAgICAgICAgICAgICAg ICAgICAgICAgICAgICAgICAgICANCiAgICAgICAgICAgICAgICAgICAgICAgICAgICAgICAgICAgICAg ICAgICAgICAgICAgICAgICAgICAgICAgICAgICAgIC AgICAgICAgICAgICAgICAgICAgICAgICAgICAgICANCiAgICAgICAgICAgICAgICAgICAgICAgICAgIC AgICAgICAgICAgICAgICAgICAgICAgICAgICAgICAgICAgICAgICAgICAgICAgICAgICAgICAgICAgIC AgICAgICAgICAgICANCiAgICAgICAgICAgICAgICAg ICAgICAgICAgICAgICAgICAgICAgICAgICAgICAgICAgICAgICAgICAgICAgICAgICAgICAgICAgICAg ICAgICAgICAgICAgICAgICAgICAgICANCiAgICAgICAgICAgICAgICAgICAgICAgICAgICAgICAgICAg ICAgICAgICAgICAgICAgICAgICAgICAgICAgICAgIC AgICAgICAgICAgICAgICAgICAgICAgICAgICAgICAgICANCiAgICAgICAgICAgICAgICAgICAgICAgIC AgICAgICAgICAgICAgICAgICAgICAgICAgICAgICAgICAgICAgICAgICAgICAgICAgICAgICAgICAgIC AgICAgICAgICAgICAgICANCjw/kBFiA2tjoCZwcaL6 K6buUb4CUw3UXJ9en3FpPJMiAZojklEcDghCVtMcJAHkPegPOsm4HCgyBN3KhJZjZ6ZuE6ChIZfkMD5X TIXgMAZruGIlHKWlAIGkAyO9VDVmDKldMJ2WsHXkVSxnEIMqZKSyStPtHUSuZNXaLBGwHJWiXMMZBLPe WPOgHjVaNYlrOP9Vu2XvtBK2IUn+Hz3MEH9uf6TmCV uuONVwEL2eni3BMIyLRsBoT2WsfpR6FNV7LOAqPq0ZWAPwYMYyoDKzUoXtLJOSPbOxG1SohF32UHDSHh 4+OIkzlsWlShuJFcT7YHRaf5WxZBt7YM2BTNSxDCk3dJOqKAjnP2opkixvELT8yC1yxolwGvfdSrTqIZ EvF5XxiPBcPZDATSSqpZZqJe0zOM8yIMX8JZAoZeT6 AJHMVQ2SNONaFUEeaQRjHOXtVHOMUV5NEGclKTR3EVDrofTudDVyYNquYO3TFJKfknZlMuHgLUXYFJo+ Pg2YEB7vz4HnOEenPwGqNG1pzt4SUHzTFnNsE4K9lVHmZ3K9UEqzTu6BHVLkBQZuGtFhNLFJMOwkST3S YI8gznY6RT9EtBQsPUQaUHNbbLNfBJx9H95pqTXnHE vyPA5TMDT+Sammy+Qh7QDNYaVXYnLYMrRpTfMOHZGkMxW7GtU7ZCd1WrU8OqAI10zHkqugNqYPqoNG6BHG 8yITDtFNWFHH7EbTDvkN7ubkMkIDSfICARXxRbH96neWGfBFDwITW3KDGnAh5UWJCsF3AnmsEzfZkidb CrVQPkIZNWMU4RTJikuoSaqZAezOdeOV71fYmlFS7Y Eb5DWzZxTN9kbb0AzYRpFm2UGXCzTQ2ENCTvNYEpOQVgNBE3BVObOtUjYXtpYFDkIDCmLQE7QIDcHEMa NO6HZnTaETTkMvGcEYbsCEVaAIFcty8LTLHxMGHzCkY7HoCjYKWaPVFoKMqfKVPzYWRrQNI4ZOOxKJEm RV2AFxDoNZLaFYQ4PmRwQDHjVDAxrt1DGIUeRDXnXF GwCcFqEZGcXSNnGMawQZKkUGF0Xgy1BYCxTCFoNX9BEiPrWZBxMAv3LgspHAUsNGOfam6IQNDfIGJwVw A3AUTqHLUpWDVkSImmRCBeTQRpRHtjEVVzYUYmEG4HMlFvOYVsDDL5VLZhVDBrUNWocf9VMDIsSPPiTB luHzYgPABbQZRkYDxiBEBxHXI6EPH6AEAxFKIdYC1N KtRdEXSrMRzwRYOoECIqWVKvwp4KURPhUUJjXJZqHGZuEMDzOVPcHIfzLDWvVUR8UQI0XBUrJDZhSO4F OxXmLNDpRAy7MOSjGCYiLEQdgu8GBQLlUWQvDLP3FKBxJIAoLQBmRKqeZMGwPOH1WmIvVRTjRQGwJM7A OoDpLAZwBDc9FetdSECdQLXyec9CHMZpNZApYYi3DH XzTKKdMECpEKhgRODnVWOsBZAwFOGjVLTxJK6QNrHeRNEfYaPrASMpSVVpBOAgoo9JGAEzOMEkPHonUk ApAXRbJVRqSAvrOXXqHLVtQVveJREjXXGxHO0OObCeQNXwHdAgRHToAHSwLWZfsb8FLGNcBVUnMrYhBj DyDTOcMIWfXYv4laWqaVQcPFu1UY2XR1TvhdIlMqfF Qk2Da950IRJ5OMEaZo2SM0plHv0sHTCnKTARVo8ZASu2JHi6OPR7WdZ9AWkmWWRkV8SlNQb8X8J2UWfk BKr4FUe+IXnqVssbZiP7KjTtLWI1FmAnIKA4QSXrZGBqMSH7PNV5Ky7fSHYLRf8+DQpzdGFydHhyZWYN JvYfLuJ3HZtoEDTKHa0H ID Date Data Source [id number] 06/15/2019 11:42:34 AM [facility] Name Value Range Interpretation Code Description Data Tania rce(s) Supporting Document(s) Glucose [Mass/volume] in Capillary blood by Glucometer 106 mg/dL 70- 140 [facility] ID Date Data Source [id number] 06/15/2019 11:10:43 AM [facility] Name Value Range Interpretation Code Description Data Tania rce(s) Supporting Document(s) Leukocytes [#/volume] in Blood by Automated count 7.7 10*3/uL 4-10 [facility] Erythrocytes [#/volume] in Blood by Automated count 2.38 10*6/uL 4.6- 6.1 L [facility] Hemoglobin [Mass/volume] in Blood 7.5 g/dL 13.5-18 L [facility] Hematocrit [Volume Fraction] of Blood by Automated count 22.5 % 4 1-53 L [facility] Erythrocyte mean corpuscular volume [Entitic volume] by Auto mated count 94.7 fL 80-96 [facility] Erythrocyte mean corpuscular hemoglobin [Entitic mass] by Automated count 31.5 pg 27-33 [facility] Erythrocyte mean corpuscular hemoglobin concentration [Mass/volume] by Automated count 33.3 g/dL 32.0-36.0 [facility] width [Ratio] by Automated count 16.1 % 11.5-14.5 H [facility] Platelets [#/volume] in Blood by Automated count 285 10*3/uL 150-400 [facility] ID Date Data Source [id number] 06/15/2019 11:51:42 AM [facility] Name Value Range Interpretation Code Description Data Tania rce(s) Supporting Document(s) Ferritin [Mass/volume] in Serum or Plasma 171 ng/ml 30-400 [facility] ID Date Data Source [id number] 06/15/2019 03:28:23 PM [facility] Name Value Range Interpretation Code Description Data Tania rce(s) Supporting Document(s) Iron [Mass/volume] in Serum or Plasma 19 ug/dl 59-158 L [facility] Transferrin [Mass/volume] in Serum or Plasma 116 mg/dL 200-360 [facility] Iron binding capacity [Mass/volume] in Serum or Plasma 161 ug/dl 228 -428 [facility] Iron saturation [Mass Fraction] in Serum or Plasma 12.0 % 20-55 [facility] ID Date Data Source [id number] 06/15/2019 11:35:13 AM [facility] Name Value Range Interpretation Code Description Data Tania rce(s) Supporting Document(s) Vancomycin [Mass/volume] in Serum or Plasma --trough 13.1 ug/mL 10.0- 20.0 [facility] ID Date Data Source [id number] 06/15/2019 08:42:26 AM [facility] XR SPINE LUMBAR 2-3 VIEWS [id number] RES ULTInterpreted by:Roderick Dickerson MDORDERING CLINICAL INFORMATION: [...] rce(s) Supporting Document(s) ID Date Data Source [id number] 06/15/2019 08:06:03 AM [facility] Name Value Range Interpretation Code Description Data Tania rce(s) Supporting Document(s) Glucose [Mass/volume] in Capillary blood by Glucometer 149 mg/dL 70- 140 H [facility] ID Date Data Source [id number] 06/15/2019 05:30:47 AM [facility] Name Value Range Interpretation Code Description Data Tania rce(s) Supporting Document(s) Leukocytes [#/volume] in Blood by Automated count 7.7 10*3/uL 4-10 [facility] Erythrocytes [#/volume] in Blood by Automated count 2.32 10*6/uL 4.6- 6.1 L [facility] Hemoglobin [Mass/volume] in Blood 7.2 g/dL 13.5-18 L [facility] Hematocrit [Volume Fraction] of Blood by Automated count 21.8 % 4 1-53 L [facility] Erythrocyte mean corpuscular volume [Entitic volume] by Auto mated count 94.2 fL 80-96 [facility] Erythrocyte mean corpuscular hemoglobin [Entitic mass] by Automated count 30.9 pg 27-33 [facility] Erythrocyte mean corpuscular hemoglobin concentration [Mass/volume] by Automated count 32.8 g/dL 32.0-36.0 [facility] distribution width [Ratio] by Automated count 16.4 % 11.5-14.5 H [facility] Platelets [#/volume] in Blood by Automated count 266 10*3/uL 150-400 [facility] Differential cell count method - Blood [facility] Neutrophils/100 leukocytes in Blood by Automated count 75 % [facility] Lymphocytes/100 leukocytes in Blood by Automated count 13 % [facility] Monocytes/100 leukocytes in Blood by Automated count 8 % [facility] Eosinophils/100 leukocytes in Blood by Automated count 4 % [facility] Basophils/100 leukocytes in Blood by Automated count 0 % [facility] Neutrophils [#/volume] in Blood by Automated count 5.81 10*3/uL 1.8-7 .0 [facility] Lymphocytes [#/volume] in Blood by Automated count 0.98 10*3/uL 1.2-4 .0 L [facility] Monocytes [#/volume] in Blood by Automated count 0.61 10*3/uL 0-0.8 [facility] Eosinophils [#/volume] in Blood by Automated count 0.30 10*3/uL 0-0.5 [facility] Basophils [#/volume] in Blood by Automated count 0.03 10*3/uL 0-0.2 [facility] Nucleated erythrocytes/100 leukocytes [Ratio] in Blood by Automated count 0 /100{WBCs} 0-0 [facility] ID Date Data Source [id number] 06/15/2019 05:50:31 AM [facility] Name Value Range Interpretation Code Description Data Tania rce(s) Supporting Document(s) Bicarbonate [Moles/volume] in Serum 23 mmol/L 22-29 [facility] Chloride [Moles/volume] in Serum or Plasma 105 mmol/L 98-107 [facility] Creatinine [Mass/volume] in Serum or Plasma 0.99 mg/dL 0.70-1.20 [facility] Glucose [Mass/volume] in Serum or Plasma 183 mg/dL 70-140 H [facility] Potassium [Moles/volume] in Serum or Plasma 3.6 mmol/L 3.4-5.1 [facility] Sodium [Moles/volume] in Serum or Plasma 138 mmol/L 136-145 [facility] Urea nitrogen [Mass/volume] in Serum or Plasma 17 mg/dL 8-23 [facility] Anion gap 3 in Serum or Plasma 10 mmol/L 8-15 [facility] Osmolality of Serum or Plasma by calculation 292 mosm/kg 275-300 [facility] Creatinine/Urea nitrogen [Mass Ratio] in Serum or Plasma 17 [facility] Calcium [Mass/volume] in Serum or Plasma 8.0 mg/dL 8.8-10.2 L [facility] Glomerular filtration rate/1.73 sq M pre dicted among non-blacks [Volume Rate/Area] in Serum or Plasma by Creatinine-based formula (MDRD) >6 0 [facility] Glomerular filtration rate/1.73 sq M pre dicted among blacks [Volume Rate/Area] in Serum or Plasma by Creatinine-based formula (MDRD) >60 [facility] ID Date Data Source [id number] 06/15/2019 05:50:31 AM [facility] Value Range Interpretation Code Description Data Tania rce(s) Supporting Document(s) Magnesium [Mass/volume] in Serum or Plasma 1.9 mg/dL 1.6-2.4 [facility] ID Date Data Source [id number] 06/15/2019 05:50:31 AM [facility] Value Range Interpretation Code Description Data Tania rce(s) Supporting Document(s) Phosphate [Mass/volume] in Serum or Plasma 2.9 mg/dL 2.5-4.5 [facility] ID Date Data Source [id number] 06/14/2019 08:48:50 PM [facility] Value Range Interpretation Code Description Data Tania rce(s) Supporting Document(s) Glucose [Mass/volume] in Capillary blood by Glucometer 234 mg/dL 70- 140 H [facility] ID Date Data Source [id number] 06/14/2019 04:39:20 PM [facility] Value Range Interpretation Code Description Data Tania rce(s) Supporting Document(s) Glucose [Mass/volume] in Capillary blood by Glucometer 81 mg/dL 70- 140 [facility] ID Date Data Source [id number] 06/14/2019 11:44:53 AM [facility] Value Range Interpretation Code Description Data Tania rce(s) Supporting Document(s) Glucose [Mass/volume] in Capillary blood by Glucometer 135 mg/dL 70- 140 [facility] ID Date Data Source [id number] 06/14/2019 09:47:45 AM [facility] Value Range Interpretation Code Description Data Tania rce(s) Supporting Document(s) Leukocytes [#/volume] in Blood by Automated count 9.5 10*3/uL 4-10 [facility] Erythrocytes [#/volume] in Blood by Automated count 2.53 10*6/uL 4.6- 6.1 L [facility] Hemoglobin [Mass/volume] in Blood 8.0 g/dL 13.5-18 L [facility] Hematocrit [Volume Fraction] of Blood by Automated count 23.9 % 4 1-53 L [facility] Erythrocyte mean corpuscular volume [Entitic volume] by Auto mated count 94.5 fL 80-96 [facility] Erythrocyte mean corpuscular hemoglobin [Entitic mass] by Automated count 31.5 pg 27-33 [facility] Erythrocyte mean corpuscular hemoglobin concentration [Mass/volume] by Automated count 33.4 g/dL 32.0-36.0 [facility] E[facility]th[facility] distribution width [Ratio] by Automated count 16.5 % 11.5-14.5 H [facility] Platelets [#/volume] in Blood by Automated count 280 10*3/uL 150-400 [facility] ID Date Data Source [id number] 06/14/2019 10:11:42 AM [facility] Name Value Range Interpretation Code Description Data Tania rce(s) Supporting Document(s) Bicarbonate [Moles/volume] in Serum 22 mmol/L 22-29 [facility] Chloride [Moles/volume] in Serum or Plasma 103 mmol/L 98-107 [facility] Creatinine [Mass/volume] in Serum or Plasma 1.02 mg/dL 0.70-1.20 [facility] Glucose [Mass/volume] in Serum or Plasma 157 mg/dL 70-140 H [facility] Potassium [Moles/volume] in Serum or Plasma 3.8 mmol/L 3.4-5.1 [facility] Sodium [Moles/volume] in Serum or Plasma 134 mmol/L 136-145 L [facility] Urea nitrogen [Mass/volume] in Serum or Plasma 16 mg/dL 8-23 [facility] Anion gap 3 in Serum or Plasma 10 mmol/L 8-15 [facility] Osmolality of Serum or Plasma by calculation 283 mosm/kg 275-300 [facility] Creatinine/Urea nitrogen [Mass Ratio] in Serum or Plasma 15 [facility] Calcium [Mass/volume] in Serum or Plasma 8.0 mg/dL 8.8-10.2 L [facility] Glomerular filtration rate/1.73 sq M pre dicted among non-blacks [Volume Rate/Area] in Serum or Plasma by Creatinine-based formula (MDRD) >6 0 [facility] Glomerular filtration rate/1.73 sq M pre dicted among blacks [Volume Rate/Area] in Serum or Plasma by Creatinine-based formula (MDRD) >60 [facility] ID Date Data Source [id number] 06/14/2019 10:11:42 AM [facility] Value Range Interpretation Code Description Data Tania rce(s) Supporting Document(s) Magnesium [Mass/volume] in Serum or Plasma 1.6 mg/dL 1.6-2.4 [facility] ID Date Data Source [id number] 06/14/2019 10:11:42 AM [facility] Value Range Interpretation Code Description Data Tania rce(s) Supporting Document(s) Phosphate [Mass/volume] in Serum or Plasma 2.3 mg/dL 2.5-4.5 [facility] ID Date Data Source [id number] 06/14/2019 08:00:16 AM [facility] Value Range Interpretation Code Description Data Tania rce(s) Supporting Document(s) Glucose [Mass/volume] in Capillary blood by Glucometer 120 mg/dL 70- 140 [facility] ID Date Data Source [id number] 06/13/2019 09:06:54 PM [facility] Value Range Interpretation Code Description Data Tania rce(s) Supporting Document(s) Glucose [Mass/volume] in Capillary blood by Glucometer 170 mg/dL 70- 140 H [facility] ID Date Data Source [id number] 06/13/2019 04:29:52 PM [facility] Value Range Interpretation Code Description Data Tania rce(s) Supporting Document(s) Glucose [Mass/volume] in Capillary blood by Glucometer 80 mg/dL 70- 140 [facility] ID Date Data Source [id number] 06/13/2019 01:30:35 PM [facility] Value Range Interpretation Code Description Data Tania rce(s) Supporting Document(s) ED Provider Note [facility] [id number]/WIOgnTHOei4QlQSgrHLl4PDqdSAPpJ7YuJBN0kA2cDJQ7DYjLOyWwLYyrBnA2 lbm LbHnxZQrQqXKZbBlpVQvGuRAstIboajTFjXN4BoSU9JTLtH12aQHNvOVYnG8VlZXL7TBC+Sr6YUNRztE LcGB5OJlhE0V2wprp5Zv5K8n1QRfWzPa4BoVXh6POoQYYXK9MVmDx6eliUQNoHVTBkzE9d64fqIm8JTm UbTaht4hOeRtU7Rq66lKRezDQdkz/SBWJ3vuJowa+/ RomrRlfqH5+p22ae+3GR3WfKAAa0DxuZGJrfa9qqqzqmzY8677lCuuwSqziVAn590CakLoOYx/6fL9Tg Y5GcB7sPddRW7V7AiqivszJFYPwD21XdRtY12FqPNSJOUxR+hD6Afkvhh8ApeBf9vA+gePjwl8+BkWh7 SrX0yK1sfRg7EKoDVze8gJSFSVcbB61d3WYMmtbs5S tSkpF9F9hw6IAcR5yYkSTlk1rE+V9o/8Cy9CBGqBni6yIwmhgTF3iG2vIz1PuM5hC4dfu9j70fBw8b2n yi5oj8dhsPhO0GaMjst/mcrSV0zQkMTdF6eQNTUcViVYqM59Y/b6SkbK5EfBo3IDA5RW7UgS25eyubkm bjXMELtGfqUpVG91/GtqEhTnPYCtmtidFcemX8o1I5 txYSW1jYJRJCu3FCMGFIkQhvrcIIXSutQ10OZHDccHE+ejmWACvDOmunWNX3xEpCG/BbtECkz3rOGZLk RqPPmlLaruzofiGsyHU5QTDnITZUi+LdbRCxa6fAvqLGr9iOnSjHeYRe8sBclxGNkw2bGsEHUAatpkwl +0xKozJgs1eviLllwuYflKOvPuudiTKLlfX4mF25pm dHInS30PvL0XBPbHs7dKwKgpuByVwZlI79vu/I7i9Yy5Zv++dhm3m7dTnjr2OvREfJ6cVshQ0u2Py5UO 1N52m/92rsYbFnNohBhTDDj1uj9TTvoOqcvww+bcEHAc1ZcOpH748ndxjwsIi23Dntd+zjKGZl2C+ADIN [file] ID Date Data Source [id number] 06/13/2019 11:55:19 AM [facility] Name Value Range Interpretation Code Description Data Tania rce(s) Supporting Document(s) Glucose [Mass/volume] in Capillary blood by Glucometer 133 mg/dL 70- 140 [facility] ID Date Data Source [id number] 06/13/2019 10:39:35 AM [facility] Name Value Range Interpretation Code Description Data Tania rce(s) Supporting Document(s) Leukocytes [#/volume] in Blood by Automated count 9.0 10*3/uL 4-10 [facility] Erythrocytes [#/volume] in Blood by Automated count 2.86 10*6/uL 4.6- 6.1 L [facility] Hemoglobin [Mass/volume] in Blood 8.9 g/dL 13.5-18 L [facility] Hematocrit [Volume Fraction] of Blood by Automated count 27.1 % 4 1-53 L [facility] Erythrocyte mean corpuscular volume [Entitic volume] by Auto mated count 94.7 fL 80-96 [facility] Erythrocyte mean corpuscular hemoglobin [Entitic mass] by Automated count 31.1 pg 27-33 [facility] Erythrocyte mean corpuscular hemoglobin concentration [Mass/volume] by Automated count 32.8 g/dL 32.0-36.0 [facility] E[facility]th[facility] distribution width [Ratio] by Automated count 16.4 % 11.5-14.5 H [facility] Platelets [#/volume] in Blood by Automated count 289 10*3/uL 150-400 [facility] Differential cell count method - Blood [facility] Neutrophils/100 leukocytes in Blood by Automated count 85 % [facility] Lymphocytes/100 leukocytes in Blood by Automated count 9 % [facility] Monocytes/100 leukocytes in Blood by Automated count 5 % [facility] Eosinophils/100 leukocytes in Blood by Automated count 1 % [facility] Basophils/100 leukocytes in Blood by Automated count 0 % [facility] Neutrophils [#/volume] in Blood by Automated count 7.63 10*3/uL 1.8-7 .0 H [facility] Lymphocytes [#/volume] in Blood by Automated count 0.80 10*3/uL 1.2-4 .0 L [facility] Monocytes [#/volume] in Blood by Automated count 0.46 10*3/uL 0-0.8 [facility] Eosinophils [#/volume] in Blood by Automated count 0.11 10*3/uL 0-0.5 [facility] Basophils [#/volume] in Blood by Automated count 0.04 10*3/uL 0-0.2 [facility] Nucleated erythrocytes/100 leukocytes [Ratio] in Blood by Automated count 0 /100{WBCs} 0-0 [facility] ID Date Data Source [id number] 06/13/2019 11:11:53 AM [facility] Name Value Range Interpretation Code Description Data Tania rce(s) Supporting Document(s) Bicarbonate [Moles/volume] in Serum 23 mmol/L 22-29 [facility] Chloride [Moles/volume] in Serum or Plasma 103 mmol/L 98-107 [facility] Creatinine [Mass/volume] in Serum or Plasma 1.03 mg/dL 0.70-1.20 [facility] Glucose [Mass/volume] in Serum or Plasma 214 mg/dL 70-140 H [facility] Potassium [Moles/volume] in Serum or Plasma 3.9 mmol/L 3.4-5.1 [facility] Sodium [Moles/volume] in Serum or Plasma 138 mmol/L 136-145 [facility] Urea nitrogen [Mass/volume] in Serum or Plasma 16 mg/dL 8-23 [facility] Anion gap 3 in Serum or Plasma 12 mmol/L 8-15 [facility] Osmolality of Serum or Plasma by calculation 294 mosm/kg 275-300 [facility] Creatinine/Urea nitrogen [Mass Ratio] in Serum or Plasma 16 [facility] Calcium [Mass/volume] in Serum or Plasma 8.5 mg/dL 8.8-10.2 L [facility] Glomerular filtration rate/1.73 sq M pre dicted among non-blacks [Volume Rate/Area] in Serum or Plasma by Creatinine-based formula (MDRD) >6 0 [facility] Glomerular filtration rate/1.73 sq M pre dicted among blacks [Volume Rate/Area] in Serum or Plasma by Creatinine-based formula (MDRD) >60 [facility] ID Date Data Source [id number] 06/13/2019 11:11:53 AM [facility] Name Value Range Interpretation Code Description Data Tania rce(s) Supporting Document(s) Magnesium [Mass/volume] in Serum or Plasma 1.7 mg/dL 1.6-2.4 [facility] ID Date Data Source [id number] 06/13/2019 11:11:53 AM [facility] Name Value Range Interpretation Code Description Data Tania rce(s) Supporting Document(s) Phosphate [Mass/volume] in Serum or Plasma 1.9 mg/dL 2.5-4.5 L [facility] ID Date Data Source [id number] 06/13/2019 07:32:48 AM [facility] Name Value Range Interpretation Code Description Data Tania rce(s) Supporting Document(s) [facility] VVLXTj4fVoKUFiRr70/FNYjkVTKtr4OfNImjQGh6DPnzMKByA9JhLHS3wH5wYAO9OWhKLrDsNWtnHoL9 [facility] GlOkbSEbKpLEDkRxoNEwBrUMinTfnggCSiDS6WyNN5KUNvD17jRPLnMQAvZ0XoQMO2ELT+Pe0CKJVayT GvCN1NDnuR6Wichos4FT/vTP+HnXamE8/YcJLuQ+c3/FN4mfBD57zWsi3MWSPfTsqApU9sH28MqLkdNz uNghOCAzvY0kq9G1aFPrT/1qdgsxp2DgL/lz+DUEJv DD//WBalRn1ijO9VOXzGfVLX3IqEHaL+RGTKppjwIlb95S5J7KX629UM5TjQ7z/2pMgdd2IYiSPHPlpJ 813dbY4uP0TsnWST8OEFbmOsgcI0of1Jvu4ywbxrk9qOaDjCyzeyx6t5ABq6ChJjxiu3Fz71zNoESYW4 GVqLgUxDbEjlVWH3e5WkHrg4yquN23mpsuA0LUfIXo JspRRiCvuvicFNCAF4pQl119kVsznyCQovB0UFWKtC5WWSxaJzKVkjPNw/5N6LTGH1t0VFKLBViXyPVl VD/izlBUrm/sReuFC4rJLu8RADSa1CcFf8f6pq1BgcEUq0qnMioH4T4fD+Lv7SFxn+iOH6qu58GiNVru 3b865MEcpqkkfdpbY/a29yJbrSAU4e5uO1w4gC03c7 6ewKuJO7bJLey58QRWcv2KRNUad5hpO+QC35zxZ6LN2tX/1+Ta4g7knWmIwBzuGny9W7vRHQnTlODwwb Jayce/hUV59MuRTj0IPF/E2MWVgjs2zzHuqyDBnxuxHaBqjJqUZKsHrGeW1ehe8Iy+NeIjhNrR3V9GpA5h [file] XxJr8yCPHBNi6+YFgmiGDwiPcjBZVXJiulPbLZKfRkGO3BYIb= ID Date Data Source [id number] 06/13/2019 08:00:08 AM [facility] Name Value Range Interpretation Code Description Data Tania rce(s) Supporting Document(s) Glucose [Mass/volume] in Capillary blood by Glucometer 145 mg/dL 70- 140 H [facility] ID Date Data Source [id number] 06/12/2019 09:57:10 PM [facility] Name Value Range Interpretation Code Description Data Tania rce(s) Supporting Document(s) Glucose [Mass/volume] in Capillary blood by Glucometer 177 mg/dL 70- 140 H [facility] ID Date Data Source [id number] 06/12/2019 08:22:25 PM [facility] Name Value Range Interpretation Code Description Data Tania rce(s) Supporting Document(s) Consultation [facility] AZXCZd5tPzYCCyXq59/OEKimWVBnp3ArVQlqBIn7GPcbUCRpT0JrMTC7hY9zEGG2GPmUAnOqKAtjXvD5 lbm [file] tJGp6452+ADVERTISING [file] ScLSQoTMSzPFQRVVbzKO0COL0pbhP2ON7RlFCoRAQoFFWrwDSmUFi7G86ibVTsNMooXT4YEEA+Sammy+Pg 4JVLYqZODpRVZjZdNdWGAKLnJtO5SiA9FSl1LyF4NqTE51oDtviaOfQYhnUA5BTM7xZKFpZCKXWG4KiB MxuV4yirA8JGLmMXFJCxBlL16obRJgUXHxAPA7MMPz Jg1SBORqI0QbylSbyLmiqeQnWFEnFMRATO6ECQdjpcHbjZCryGesYI20hOsgUR9EAn3TPgCeIV1kru4W wGXdXp0NTKS1YK6ABCPqWTMuEVDtYWU6HSLtUqVvKPvpNUStEFSgTTK3JTZeOQSrRG0JRxLdNGKwBFl1 LJVtGPObBDXfoe2BCRBaZTV6QWK9XHZoUSTlBDPlHG lvIYCkMVYnYXP2DWQuBMXbFQ6OPgQyGGAdAQN7QGreUMJwRVCraq0MCROpUHDlGWZ0OjZtUZCcPJXnVS laRHPdXGP7DNOsZDDwDZYwAQ6VSmTyWDWkGFiyGHxoBOPbXMCyut4DCYLkMPBsBCImTdCrJOGpNKGyEA bfRBEcCSBhSiA4ZFYiZFFoUA2XWyRdFRWoEZE5PxWj ZTDmMXFhcr5DXCWhZQHbBzIvOiGsCGDyIRZnIFigFFEaWNJ2HHRiRYCkUYQfAR0JJkTyEWCdXJO8Gbdm JJElIFXkvb2WWNQyTGQtQTgxNMBhMZWiUJIoQNonBRTaIDB6PNVeMUIpOPAeYD5QGlIeYNWnUvTjHHSt BVGuVZCnoa6VSQSnKNN6NVG1GkIqCFVtUJCcFIkcCH CqOIDzSRh2MBXuXMZlVP4MIyZyRMNxUjAjIMVfKTDhUGBhjh1BQWYtCLA3GYqxPuChYPClSVXgZRjbVZ KqWBCyWSe6GCQkTFQiXJ8ZQtIdSSTrGpWwTEBnQDQqMIThnb7YYTGiPTX0FQZeXpJgEBCuIXYkDErtOF PgPLCcGwpdSKStVVZuYP1USyNeIEBjEhP0OTcbFKMt OZPwlc4QCXZeCWN0JMjxZgOeCFYoZHUsQIytNCTwOVOzKLt2QUVcXNVgKR0PHlBfRJFtTaIrQTYcGAQk GMQsyk3LSEJwQCB7MxQzVrRcQPRkUURgWWueAFRnKOWsQzthAEHkPXPuHU5IIjRpZSEaTaU0EACjHJYy UGBmnt4YMKBvXUPbAui0KcWuXFEyGINhGYvwEASuYV L0UYsvOCGtTDXmZW2UWzAzQOCjYuo4ZJKpTEFmSURmbf1SPLWxILJrXLF4WTDvAHIeLRDpSIuwRKVzCD B6ElDhTDCxQFSeVW5BVjRiKRFfWvRpXRGjQAUgYRSgle7AZRPrIYVwJDR6DNYhHIWxPZUgXHavWBCxGS LcIhhpVLEeTJFhZJ4LZgEqEOKqNfL5CrGmASThWNEe ay1EAMYcUXIePNbmVGUfVXAgMVHiAHprAYGvLLZtEKSgBRNzVBTxQZ3BWlLkOIGxLCPaNRmoDREfVDGc tc7RJNDpEIR0QfccJOFgYOJpJCUzYIubECRtMHOcCUA6KVFvAXPtLB7IZfNwKJXjMEZrJsUfBPLnNUGp xk0YTCSfMTB5AJRyKMFjDLKcXYOzKAzqKPSgLGY6Ok BePFKcIOZiNR9CMiZfPBOiEJX2HEWbDPOwKZRknd2PCHVjFXX0EFKhJJXqJJHqAKKcOManWXTqPCC8QA JrEDTfGZEoOJ0LOxJkXLLaMPabTDagAFNnDALnxp9KTHAqEBY0LZo9SZOiARPaLIRbARrvLJXsRYHjIj PjPXSmWYYwGT6VTkHrEGWtFdG7EZAnBNWlBSTvbo4D NVDuLQF4RxYuRaFvSAHqFOSpLBb9nuFssULoOTi0JD4DY8TurbFmBNvEBk3Ix711CTN3ASDjFd0NO1cd By7oOYJlVSIOXc3YDAy2TYFwAnvuRSi2TYqeRRKfLluyBTspTbs6JFS8QONxQME+YDdtOiT6VHV9JNo9 SVA0QgP1REC5FAGzHZR6KDs4IdY8Jm2oBKVTFw3+EGuyiKHuhZveDZIJCrEtHixaTMjrUKRIMg2I ID Date Data Source [id number] 06/12/2019 04:32:47 PM [facility] Name Value Range Interpretation Code Description Data Tania rce(s) Supporting Document(s) Glucose [Mass/volume] in Capillary blood by Glucometer 126 mg/dL 70- 140 [facility] ID Date Data Source [id number] 06/12/2019 11:29:44 AM [facility] Name Value Range Interpretation Code Description Data Tania rce(s) Supporting Document(s) Glucose [Mass/volume] in Capillary blood by Glucometer 150 mg/dL 70- 140 [facility] ID Date Data Source [id number] 06/13/2019 03:03:49 PM [facility] Service Cmnt XXX-Imp : Microorganism XXX Cult : NO Methicillin resistant Staphylococcus aureus isolated Name Value Range Interpretation Code Description Data Tania rce(s) Supporting Document(s) ID Date Data Source [id number] 06/12/2019 07:49:30 AM [facility] Name Value Range Interpretation Code Description Data Tania rce(s) Supporting Document(s) Glucose [Mass/volume] in Capillary blood by Glucometer 239 mg/dL 70- 140 [facility] Procedure Social History Code Duration Value Status Description Data Source(s ) Smoking 08/05/2020 12:00:00 AM EST Never Smoker completed Never S moker eCW1 ([facility]) Smoking 08/05/2020 12:00:00 AM EST Never Smoker completed Never S moker eCW1 ([facility]) Smoking 07/16/2020 12:00:00 AM EST Never Smoker completed Never S moker eCW1 ([facility]) Smoking 06/27/2020 12:00:00 AM EST Never Smoker completed Never S moker eCW1 ([facility]) Smoking 06/20/2020 12:00:00 AM EST Never Smoker completed Never S moker eCW1 ([facility]) Smoking 05/20/2020 12:00:00 AM EST Never Smoker completed Never S moker eCW1 ([facility]) Smoking 05/20/2020 12:00:00 AM EST Never Smoker completed Never S moker eCW1 ([facility]) Smoking 05/20/2020 12:00:00 AM EST Never Smoker completed Never S moker eCW1 ([facility]) Smoking 05/20/2020 12:00:00 AM EST Never Smoker completed Never S moker eCW1 ([facility]) Smoking 04/05/2020 12:00:00 AM EDT Never Smoker completed Never S moker eCW1 ([facility]) Smoking 03/26/2020 12:00:00 AM EDT Never Smoker completed Never S moker eCW1 ([facility]) Smoking 03/26/2020 12:00:00 AM EDT Never Smoker completed Never S moker eCW1 ([facility]) Alcohol intake 03/24/2020 12:00:00 AM EDT Ex-drinker (finding) comp leted Ex- drinker (finding) [facility] Tobacco use and exposure 03/24/2020 12:00:00 AM EDT Never used co mpleted Never used [facility] Smoking 03/24/2020 12:00:00 AM EDT Never smoker completed Never s [facility] Smoking 01/15/2020 12:00:00 AM EDT Patient is a former smoker completed Patient is a former smoker [facility] ([facility] ) Smoking 01/09/2020 12:00:00 AM EDT Never Smoker completed Never S moker eCW1 ([facility]) Smoking 01/09/2020 12:00:00 AM EDT Never Smoker completed Never S moker eCW1 ([facility]) Smoking 12/08/2019 12:00:00 AM EDT Never Smoker completed Never S moker eCW1 ([facility]) Smoking 12/08/2019 12:00:00 AM EDT Never Smoker completed Never S moker eCW1 ([facility]) Smoking 12/08/2019 12:00:00 AM EDT Never Smoker completed Never S moker eCW1 ([facility]) Smoking 12/08/2019 12:00:00 AM EDT Never Smoker completed Never S moker eCW1 ([facility]) Smoking 12/08/2019 12:00:00 AM EDT Never Smoker completed Never S moker eCW1 ([facility]) Smoking 11/16/2019 12:00:00 AM EDT Never Smoker completed Never [facility] eCW1 ([facility]) Alcohol intake 09/24/2019 12:00:00 AM EDT Ex-drinker (finding) comp leted Ex- drinker (finding) [facility] Smoking 09/24/2019 12:00:00 AM EDT Never smoker completed Never [facility] Alcohol intake 07/30/2019 12:00:00 AM EST Ex-drinker (finding) comp leted Ex- drinker (finding) [facility] Smoking 07/30/2019 12:00:00 AM EST Never smoker completed Never [facility] Alcohol intake 07/24/2019 12:00:00 AM EST Ex-drinker (finding) comp leted Ex- drinker (finding) [facility] Smoking 07/24/2019 12:00:00 AM EST Never smoker completed Never [facility] Alcohol intake 07/10/2019 12:00:00 AM EST Ex-drinker (finding) comp leted Ex- drinker (finding) [facility] Smoking 07/10/2019 12:00:00 AM EST Never smoker completed Never [facility] Alcohol intake 06/26/2019 12:00:00 AM EST Ex-drinker (finding) comp leted Ex- drinker (finding) [facility] Smoking 06/26/2019 12:00:00 AM EST Never smoker completed Never [facility] Vital Signs ID Date Data Source UNK Name Value Range Interpretation Code Description Data Source(s) Diastolic blood pressure 90 mm[Hg] 90 mm[Hg] eCW1 ([facility]) Systolic blood pressure 175 mm[Hg] 175 mm[Hg] e CW1 ([facility]) Body temperature 95.9 [degF] 95.9 [degF] eCW1 ( [facility]) Respiratory rate 20 /min 20 /min eCW1 ([facility]) Heart rate 78 /min 78 /min eCW1 ([facility]) Body mass index (BMI) [Ratio] 27.06 kg/m2 27.06 kg/m2 eCW1 ([facility]) Body height 68 [in_i] 68 [in_i] eCW1 ([facility]) Body weight 178 [lb_av] 178 [lb_av] eCW1 ([facility]) Diastolic blood pressure 74 mm[Hg] 74 mm[Hg] eCW1 ([facility]) Systolic blood pressure 150 mm[Hg] 150 mm[Hg] e CW1 ([facility]) Respiratory rate 18 /min 18 /min eCW1 ([facility]) Heart rate 70 /min 70 /min eCW1 ([facility]) Body mass index (BMI) [Ratio] 26.30 kg/m2 26.30 kg/m2 eCW1 ([facility]) Body height 68 [in_i] 68 [in_i] eCW1 ([facility]) Body weight 173 [lb_av] 173 [lb_av] eCW1 ([facility]) Diastolic blood pressure 77 mm[Hg] 77 mm[Hg] eCW1 ([facility]) Systolic blood pressure 185 mm[Hg] 185 mm[Hg] e CW1 ([facility]) Body temperature 97.3 [degF] 97.3 [degF] eCW1 ( [facility]) Respiratory rate 18 /min 18 /min eCW1 ([facility]) Heart rate 70 /min 70 /min eCW1 ([facility]) Body mass index (BMI) [Ratio] 26.30 kg/m2 26.30 kg/m2 eCW1 ([facility]) Body height 68 [in_i] 68 [in_i] eCW1 ([facility]) Body weight 173 [lb_av] 173 [lb_av] eCW1 ([facility]) Diastolic blood pressure 85 mm[Hg] 85 mm[Hg] eCW1 ([facility]) Systolic blood pressure 167 mm[Hg] 167 mm[Hg] e CW1 ([facility]) Body temperature 97.9 [degF] 97.9 [degF] eCW1 ( [facility]) Respiratory rate 18 /min 18 /min eCW1 ([facility]) Heart rate 78 /min 78 /min eCW1 ([facility]) Body mass index (BMI) [Ratio] 26.15 kg/m2 26.15 kg/m2 eCW1 ([facility]) Body height 68 [in_i] 68 [in_i] eCW1 ([facility]) Body weight 172 [lb_av] 172 [lb_av] eCW1 ([facility]) Diastolic blood pressure 74 mm[Hg] 74 mm[Hg] eCW1 ([facility]) Systolic blood pressure 152 mm[Hg] 152 mm[Hg] e CW1 ([facility]) Body temperature 96.6 [degF] 96.6 [degF] eCW1 ( [facility]) Respiratory rate 20 /min 20 /min eCW1 ([facility]) Heart rate 67 /min 67 /min eCW1 ([facility]) Body mass index (BMI) [Ratio] 25.85 kg/m2 25.85 kg/m2 eCW1 ([facility]) Body height 68 [in_i] 68 [in_i] eCW1 ([facility]) Body weight 170 [lb_av] 170 [lb_av] eCW1 ([facility]) Diastolic blood pressure 120 mm[Hg] 120 mm[Hg] eCW1 ([facility]) Systolic blood pressure 210 mm[Hg] 210 mm[Hg] e CW1 ([facility]) Body temperature 96.8 [degF] 96.8 [degF] eCW1 ( [facility]) Respiratory rate 20 /min 20 /min eCW1 ([facility]) Heart rate 91 /min 91 /min eCW1 ([facility]) Body mass index (BMI) [Ratio] 25.69 kg/m2 25.69 kg/m2 W1 ([facility]) Body height 68 [in_i] 68 [in_i] eCW1 ([facility]) Body weight 169 [lb_av] 169 [lb_av] eCW1 ([facility]) Diastolic blood pressure 75 mm[Hg] 75 mm[Hg] eCW1 ([facility]) Systolic blood pressure 153 mm[Hg] 153 mm[Hg] e CW1 ([facility]) Body temperature 98.3 [degF] 98.3 [degF] eCW1 ( [facility]) Respiratory rate 18 /min 18 /min eCW1 ([facility]) Heart rate 82 /min 82 /min eCW1 ([facility]) Body mass index (BMI) [Ratio] 25.54 kg/m2 25.54 kg/m2 eCW1 ([facility]) Body height 68 [in_i] 68 [in_i] eCW1 ([facility]) Body weight 168 [lb_av] 168 [lb_av] eCW1 ([facility]) [place] body weight 166 [lb_av] 166 [lb_av] MEDEN T ([facility]) Body mass index (BMI) [Ratio] 24.5 kg/m2 24.5 k g/m2 [facility] ([facility]) Body weight 171.00 [lb_av] 171.00 [lb_av] MEDEN T ([facility]) Body height 70 [in_i] 70 [in_i] [facility] ([facility]) 5'10" Respiratory rate 12 /min 12 /min [facility] ( [facility]) Body weight 78.076 kg 78.[address] [facility] ([facility]) Body mass index (BMI) [Ratio] 24.7 kg/m2 24.7 k g/m2 [facility] ([facility]) Body weight 172.12 [lb_av] 172.12 [lb_av] MEDEN T ([facility]) Body height 70 [in_i] 70 [in_i] [facility] ([facility]) 5'10" Diastolic blood pressure 73 mm[Hg] 73 mm[Hg] [facility] ([facility]) Systolic blood pressure 152 mm[Hg] 152 mm[Hg] M EDENT ([facility]) Body weight 77.736 kg 77.736 kg [facility]) Body mass index (BMI) [Ratio] 24.6 kg/m2 24.6 k g/m2 [facility] ([facility]) Body weight 171.38 [lb_av] 171.38 [lb_av] MEDEN T ([facility]) Body height 70 [in_i] 70 [in_i] [facility] ([facility]) 5'10" Diastolic blood pressure 82 mm[Hg] 82 mm[Hg] [facility] ([facility]) Systolic blood pressure 142 mm[Hg] 142 mm[Hg] M EDENT ([facility]) Diastolic blood pressure mm[Hg] eCW1 ([facility]) Systolic blood pressure 142 mm[Hg] 142 mm[Hg] e CW1 ([facility]) Body temperature 98.2 [degF] 98.2 [degF] eCW1 ( [facility]) Respiratory rate 17 /min 17 /min eCW1 ([facility]) Heart rate 65 /min 65 /min eCW1 ([facility]) Body mass index (BMI) [Ratio] 25.54 kg/m2 25.54 kg/m2 [facility] ([facility]) Body height 68 [in_i] 68 [in_i] eCW1 ([facility]) Body weight 168 [lb_av] 168 [lb_av] eCW1 ([facility]) [place] body weight 166 [lb_av] 166 [lb_av] MEDEN T ([facility]) Body mass index (BMI) [Ratio] 24.5 kg/m2 24.5 k g/m2 [facility] ([facility]) Body weight 171.00 [lb_av] 171.00 [lb_av] MEDEN T ([facility]) Body height 70 [in_i] 70 [in_i] [facility] ([facility]) 5'10" Respiratory rate 12 /min 12 /min [facility] ( [facility]) Heart rate 64 /min 64 /min [facility] ([facility]) Diastolic blood pressure 50 mm[Hg] 50 mm[Hg] [facility] ([facility]) Systolic blood pressure 140 mm[Hg] 140 mm[Hg] M EDENT ([facility]) Diastolic blood pressure mm[Hg] eCW1 ([facility]) Systolic blood pressure 122 mm[Hg] 122 mm[Hg] e CW1 ([facility]) Body temperature 97.7 [degF] 97.7 [degF] eCW1 ( [facility]) Respiratory rate 18 /min 18 /min eCW1 ([facility]) Heart rate 65 /min 65 /min eCW1 ([facility]) Body mass index (BMI) [Ratio] 26.45 kg/m2 26.45 kg/m2 eCW1 ([facility]) Body height 68 [in_us] 68 [in_us] eCW1 ([facility]) Body weight Measured 174 [lb_av] 174 [lb_av] eC W1 ([facility]) Diastolic blood pressure 78 mm[Hg] 78 mm[Hg] eCW1 ([facility]) Systolic blood pressure 132 mm[Hg] 132 mm[Hg] e CW1 ([facility]) Body temperature 97.5 [degF] 97.5 [degF] eCW1 ( [facility]) Respiratory rate 18 /min 18 /min eCW1 ([facility]) Heart rate 96 /min 96 /min eCW1 ([facility]) Body mass index (BMI) [Ratio] 22.04 kg/m2 22.04 kg/m2 eCW1 ([facility]) Body height 68 [in_us] 68 [in_us] eCW1 ([facility]) Body weight Measured 145 [lb_av] 145 [lb_av] eC W1 ([facility]) Deprecated Oxygen saturation in Capillary blood by Oximetry 99 % 99 % eCW1 ([facility]) Respiratory rate 16 /min 16 /min eCW1 ([facility]) Heart rate 89 /min 89 /min eCW1 ([facility]) Body temperature 97.9 [degF] 97.9 [degF] eCW1 ( [facility]) Body mass index (BMI) [Ratio] 24.08 kg/m2 24.08 kg/m2 eCW1 ([facility]) Body weight Measured 158.4 [lb_av] 158.4 [lb_av ] eCW1 ([facility]) Body height 68 [in_us] 68 [in_us] eCW1 ([facility]) ID Date Data Source [id number] 03/24/2020 07:15:41 AM EDT [facility] Name Value Range Interpretation Code Description Data Source(s) WEIGHT RECORDED 167 lb 167 lb [facility] Body height Measured 66 in 66 in [facility] ID Date Data Source [id number] 06/26/2019 08:43:26 AM [facility] Name Value Range Interpretation Code Description Data Source(s) WEIGHT RECORDED 173 lb 173 lb [facility] Body height Measured 70 in 70 in [facility] ID Date Data Source [id number] 08/07/2019 07:54:51 AM [facility] Name Value Range Interpretation Code Description Data Source(s) WEIGHT RECORDED 173 lb 173 lb [facility] Body height Measured 70 in 70 in [facility] Patient Treatment Plan of Care Planned Activity Planned Date Details Description Data Source (s) Sulfamethoxazole 800 MG / Trimethoprim 160 MG Oral Tab let [Bactrim] 04/05/2020 12:00:00 AM EDT [facility] Finasteride 5 MG Oral Tablet 03/07/2020 12:00:00 AM [facility] Finasteride 5 MG Oral Tablet [Proscar] 01/09/2020 12:00:00 AM EDT [facility] ([facility]) Finasteride 5 MG Oral Tablet [Proscar] 01/09/2020 12:00:00 AM EDT [facility] ([facility]) atorvastatin 40 MG Oral Tablet 12/25/2019 12:00:00 AM [facility] apixaban 2.5 MG Oral Tablet [Eliquis] 12/20/2019 12:00:00 AM [facility] Amlodipine 10 MG Oral Tablet 12/18/2019 12:00:00 AM [facility] Cephalexin 250 MG 12/15/2019 01:00:00 AM EDT [facility]) MetFORMIN HCl 1000 MG 11/26/2019 01:00:00 AM EDT [facility] ([facility]) Tamsulosin HCl 0.4 MG 11/26/2019 01:00:00 AM EDT [facility] ([facility]) Atorvastatin Calcium 40 MG 11/26/2019 01:00:00 AM EDT [facility] ([facility]) Pravastatin Sodium 20 MG 11/26/2019 01:00:00 AM EDT [facility]) Losartan Potassium-HCTZ 100-12.5 MG 11/26/2019 01:00:00 AM EDT [facility] ([facility]) Iron (Ferrous Sulfate) 142 (45 Fe) MG 11/26/2019 01:00:00 AM EDT [facility] ([facility]) Omeprazole 20 MG 11/26/2019 01:00:00 AM EDT [facility] ([facility]) Daily Multivitamin 11/26/2019 01:00:00 AM EDT [facility]) B12 Folate 800-800 MCG 11/26/2019 01:00:00 AM EDT [facility]) Insulin Detemir 100 UNIT/ML 11/26/2019 01:00:00 AM EDT [facility]) Eliquis 2.5 MG 11/26/2019 01:00:00 AM EDT [facility] ([facility]) AmLODIPine Besylate 10 MG 11/22/2019 01:00:00 AM EDT [facility] ([facility]) Cephalexin 500 MG Oral Capsule [Keflex] 08/23/2019 12:00:00 AM EST eCW1 ([facility]) Tamsulosin hydrochloride 0.4 MG Oral Capsule 07/17/2019 12:00:[address] [facility] Misc. Devices (DURABLE MEDICAL EQUIPMENT SEE SIG) XX M ISC 07/03/2019 12:00:00 AM [facility] Ibuprofen 200 MG 06/26/2019 12:00:00 AM [facility]) Misc. Devices (DURABLE MEDICAL EQUIPMENT SEE SIG) XX M ISC 06/23/2019 12:00:00 AM [facility]ital Tylenol Extra Strength 500 MG 06/20/2019 12:00:00 AM [facility] ([facility]) Tamsulosin HCl 0.4 MG 06/16/2019 12:00:00 AM [facility] ([facility]) Omeprazole 20 MG 06/16/2019 12:00:00 AM [facility] ([facility]) Pravastatin Sodium 20 MG 06/16/2019 12:00:00 AM [facility]) Ferrous Sulfate 325 (65 Fe) MG 06/16/2019 12:00:00 AM [facility]) Losartan Potassium 100 MG 06/16/2019 12:00:00 AM [facility]) MetFORMIN HCl 1000 MG 06/16/2019 12:00:00 AM [facility]) Senna 8.6 MG 06/16/2019 12:00:00 AM [facility] ([facility]) Heparin Lock Flush 100 UNIT/ML 06/16/2019 12:00:00 AM [facility]) Normal Saline Flush 0.9 % 06/16/2019 12:00:00 AM [facility]) CefTRIAXone Sodium 2 GM 06/16/2019 12:00:00 AM [facility]) Vancomycin HCl 1.5 GM 06/16/2019 12:00:00 AM [facility]) Lantus SoloStar 100 UNIT/ML 06/16/2019 12:00:00 AM [facility]) Normal Saline Flush 0.9 % Intravenous Solution 06/16/2019 12:00:[address] [facility] 3 ML heparin sodium, porcine 100 UNT/ML Prefilled Syri nge 06/16/2019 12:00:00 AM [facility] Tamsulosin hydrochloride 0.4 MG Oral Capsule 06/16/2019 12:00:[address] [facility] POLYETHYLENE GLYCOL 3350 142 MG/ML Oral Solution 06/16/2019 12:00:[address] [facility] Ceftriaxone 2000 MG Injection 06/16/2019 12:00:[address] [facility] Vancomycin HCl 1.5 GM Intravenous Solution Reconstitut ed (VANCOCIN) 06/16/2019 12:00:00 AM [facility] Tamsulosin hydrochloride 0.4 MG Oral Capsule 06/16/2019 12:00:[address] [facility] POLYETHYLENE GLYCOL 3350 142 MG/ML Oral Solution 06/16/2019 12:00:[address] [facility] Tamsulosin hydrochloride 0.4 MG Oral Capsule 06/16/2019 12:00:[address] [facility] POLYETHYLENE GLYCOL 3350 142 MG/ML Oral Solution 06/16/2019 12:00:[address] [facility] 8.6 MG Oral Tablet 06/15/2019 12:00:[address] [facility] ferrous sulfate 325 MG Oral Tablet 06/15/2019 12:00:[address] [facility] Vancomycin HCl 1500 MG/300ML Intravenous Solution (VAN COCIN) 06/15/2019 12:00:00 AM [facility] Ceftriaxone 2000 MG Injection 06/15/2019 12:00:[address] [facility] Acetaminophen 325 MG Oral Tablet 06/15/2019 12:00:00 [facility] 8.6 MG Oral Tablet 06/15/2019 12:00:[address] [facility] ferrous sulfate 325 MG Oral Tablet 06/15/2019 12:00:[address] [facility] ferrous sulfate 325 MG Oral Tablet 06/15/2019 12:00:[address] [facility] ferrous sulfate 325 MG Oral Tablet 06/15/2019 12:00:00 AM [facility] 8.6 MG Oral Tablet 06/15/2019 12:00:[address] [facility] Hydralazine Hydrochloride 20 MG/ML Injectable Solution 06/14/2019 07:49:21 AM [facility] Bisacodyl 10 MG Rectal Suppository 06/13/2019 10:27:[address] [facility] sodium chloride (preservative free) 0.9 % flush 10 mL 06/13/2019 10:26:31 AM [facility] Glucose 0.4 MG/MG Oral Gel 06/11/2019 02:11:[address] [facility] dextrose 50 % IV solution 25 mL 06/10/2019 11:20:[address] [facility] Glucagon 1 MG Injection 06/10/2019 11:20:[address] [facility] Glucose 0.4 MG/MG Oral Gel 06/10/2019 11:20:[address] [facility] Pravastatin Sodium 20 MG Oral Tablet [facility] Acetaminophen 325 MG Oral Tablet [facility] meloxicam 15 MG Oral Tablet [facility] tramadol hydrochloride 50 MG Oral Tablet [facility]
--- OUTSIDE RECORDS SUMMARY | 2020-08-11 05:01 | CCD ---
Author Author [facility] Organization [facility] Address Unknown Phone Unavailable Care Team Providers Care C Python Developer Name Role Phone Shanelle Barrera MD Unavailable [...] Unavailable Shanelle Barrera MD Unavailable Unavailable Shanelle Brarera MD Unavailable Unavailable Shanelle Barrera MD Unavailable [...] Unavailable TRICIA, A HENRY MD Unavailable Unavailable TRCIIA, A HENRY MD Unavailable Unavailable TRICIA, A [...] is protected by Article 27-F of the [facility] Public Health law. If you continue you may have access to information: Regarding HIV / AIDS; Provided by facilities licensed or operated by the [facility] Office of Mental Health; or Provided by the [facility] Office for People With Developmental Disabilities. If such information is present, then the following [facility] mandated warning applies: This information has [...] law may result in a fine or alf sentence or both. A general authorization for the release of medical or other information is NOT sufficient authorization for further disc losure. Allergies and Adverse Reactions Type Description Substance Reaction Status Data Source(s ) Drug Class NO KNOWN ALLERGIES NO KNOWN ALLERGIES [facility] No Known Drug Allergies No Known Drug Allergies No Known Drug Aller gies active NETSGILTNER ([facility] ) Encounters Encounter Providers Location Date Indications Data Source(s ) Outpatient Attender: Yosef Barrera MD 03/16/2022 12:00:00 AM ED [facility] [place] [address] [facility] [address] 08/05/2020 12:00:00 AM EST eCW1 ([facility]) [place] [address] [facility] [address] 08/05/2020 12:00:00 AM EST eCW1 ([facility]) [place] [address] [facility] [address] 07/16/2020 12:00:00 AM EST eCW1 ([facility]) [place] [address] [facility] [address] 06/27/2020 12:00:00 AM EST eCW1 ([facility]) [place] [address] [facility] [address] 06/20/2020 12:00:00 AM EST eCW1 ([facility]) [place] [address] [facility] [address] 05/29/2020 12:00:00 AM EST eCW1 ([facility]) [place] [address] [facility] [address] 05/29/2020 12:00:00 AM EST eCW1 ([facility]) [place] [address] [facility] [address] 05/20/2020 12:00:00 AM EST eCW1 ([facility]) [place] [address] [facility] [address] 05/20/2020 12:00:00 AM EST eCW1 ([facility]) [place] [address] [facility] [address] 04/05/2020 12:00:00 AM EDT eCW1 ([facility]) [place] [address] [facility] [address] 03/26/2020 12:00:00 AM EDT eCW1 ([facility]) [place] [address] [facility] [address] 03/26/2020 12:00:00 AM EDT eCW1 ([facility]) Office Visit Attender: Andi Jones MD Main office - [facility] 03/25/2020 01:15:00 PM EDT MEDENT ([facility]) Outpatient Attender: Yosef Barrera MD [id number] 03/11/2020 12:00:00 AM EDT Discitis, unspecified, lumbar Health system Discitis, unspecified, lumbar region Outpatient Referrer: Yosef Barrera MD 03/11/2020 12:00:00 AM EDT Discitis, unspecified, lumbar region [facility] Discitis, unspecified, lumbar region Outpatient Attender: Marii Calderon/Hal/Anthony/ Abbey 01/15/2020 03:15:00 PM EDT MEDENT ([facility]) [place] [address] [facility] [address] 01/09/2020 12:00:00 AM EDT eCW1 ([facility]) [place] [address] [facility] [address] 01/09/2020 12:00:00 AM EDT eCW1 [facility] Outpatient Attender: Andi Jones MD Main office [facility] 12/25/2019 09:00:00 AM EDT MEDENT ([facility], ) [facility] [address] [facility] [address] 12/19/2019 12:00:00 AM EDT eCW1 ([facility]) [place] [address] [facility] [address] 12/12/2019 12:00:00 AM EDT eCW1 ([facility]) Outpatient Attender: HENRY CLARKE MD 12/12/2019 12:00:0 0 AM EDT [facility] [place] [address] [facility] [address] 12/11/2019 12:00:00 AM EDT eCW1 ([facility]) [place] [address] [facility] [address] 12/11/2019 12:00:00 AM EDT eCW1 ([facility]) [place] [address] [facility] [address] 12/08/2019 12:00:00 AM EDT eCW1 ([facility]) [place] [address] [facility] [address] 12/08/2019 12:00:00 AM EDT eCW1 [facility]) Outpatient Referrer: DEMETRIUS PERSON MD 12/07/2019 06:08:00 AM EDT [facility] Outpatient Attender: Bill Winter MD 12/06/2019 12:00:00 A M EDT [facility] [place] [address] [facility] [address] 12/04/2019 12:00:00 AM EDT [facility]) 11/26/2019 01:00:00 AM EDT - 020 09:15:59 AM EDT NETSMART ([facility]) Outpatient Attender: Bill Winter MD 11/22/2019 12:00:00 A M [facility]rology [address] [place] [address], [facility] [address] 11/16/2019 12:00:00 AM EDT eCW1 [facility]) [facility] [address] [place] [address] 10/19/2019 12:00:00 AM EDT eCW1 ([facility]) [facility] [address] [facility] [place] [address] 10/17/2019 12:00:00 AM EDT eCW1 ([facility]) [facility] [address] [place] [address] [place] [address] 09/15/2019 12:00:00 AM EDT eCW1 ([facility]) [facility] [address] [place] [address] [place] [address] 09/13/2019 12:00:00 AM EDT eCW1 ([facility]) Outpatient Referrer: Yosef Barrera MD 09/08/2019 12:00:00 AM EDT Discitis, unspecified, lumbar region [facility] Discitis, unspecified, lumbar region Outpatient Attender: Yosef Barrera MD [id number] 09/08/2019 12:00:[address] [facility] Outpatient Attender: Yosef Barrera MD 09/04/2019 12:00:00 AM [facility] [address] [facility] [address] 08/23/2019 12:00:00 AM EST eCW1 ([facility]) [facility] C ENTER 08/14/2019 12:00:00 AM EST eCW1 ([facility]) Outpatient Referrer: DEMETRIUS PERSON MD 07/25/2019 12:16:00 PM EST [facility] Outpatient Attender: BENJAMIN Hurtadoferrer: DONNA VELEZ [id number] 07/24/2019 12:00:00 AM EST - 07/24/2019 11:56:58 AM EST [facility] Outpatient Attender: Yosef Barrera MD [id number] 07/21/2019 12:00:00 AM E [facility] C ENTER 07/21/2019 12:00:00 AM EST eCW1 ([facility]) Outpatient Attender: Christopher Martinez MDReferrer: Christopher Martinez MDConsultant: Christopher Martinez MD 07/18/2019 01:14:0 0 PM EST - 07/18/2019 01:24:00 PM EST [facility] C ENTER 07/13/2019 12:00:00 AM EST eCW1 ([facility]) Outpatient Attender: Christopher Martinez MDReferrer: Christopher Martinez MDConsultant: Christopher Martinez MD 07/10/2019 10:52:0 0 AM EST - 07/10/2019 11:02:00 AM EST [facility] Outpatient Attender: BENJAMIN Hurtadoferrer: DONNA VELEZ [id number] 07/10/2019 12:00:00 AM EST - 07/10/2019 02:15:44 PM EST Extradural and subdural abscess, unspecified [facility] Extradural and subdural abscess, unspeci fied [facility] C ENTER 07/04/2019 12:00:00 AM EST eCW1 ([facility]) Outpatient Attender: Christopher Martinez MDReferrer: Christopher Martinez MDConsultant: Christopher Martinez MD 07/03/2019 04:12:0 0 PM EST - 07/03/2019 04:22:00 PM [facility] Outpatient Attender: Bill Winter MD 06/30/2019 09:29:00 A M [facility] Outpatient Referrer: DEMETRIUS PERSON MD 06/30/2019 08:20:00 AM EST [facility] 06/30/2019 12: 00:00 AM EST eCW1 ([facility]) Outpatient Attender: Christopher Martinez MDReferrer: Christopher Martinez MDConsultant: Christopher Martinez MD 06/29/2019 03:38:0 0 PM EST - 06/29/2019 03:48:00 PM [facility] Outpatient Attender: Christopher Martinez MDReferrer: Christopher Martinez MDConsultant: Christopher Martinez MD 06/26/2019 02:46:0 0 PM EST - 06/26/2019 02:56:00 PM [facility] Outpatient Referrer: Cleo GALLAGHER 06/23/2019 12 :00:00 AM EST Extradural and subdural abscess, unspecified [facility] Extradural and subdural abscess, unspeci fied Outpatient Attender: Yosef Barrera MD [id number] 06/23/2019 12:00:00 AM E [facility] Outpatient Attender: Christopher Martinez MDReferrer: Christopher Martinez MDConsultant: Christopher Martinez MD 06/19/2019 03:51:0 0 PM EST - 06/19/2019 04:01:00 PM [facility] 06/16/2019 12:00:00 AM EST - 020 11:07:01 AM EST [facility] Inpatient Attender: Chriss Chirinos tatyana: DONNA OLIVOAttender: DIONY KEITA MDAttender: MIMI OSPINA MDAdmitter: DIONY KEITA MDReferrer: DIONY KEITA MD [id number] 06/10/2019 12:00:00 AM EST - 06/15/2019 12:00:00 AM ES T Discitis, unspecified, lumbar region [facility] Discitis, unspecified, lumbar region Patient discharged. Immunizations Vaccine Date Status Description Data Source(s) New in 2011. IIV4 03/11/2020 09:16:00 AM EDT completed eCW1 ([facility]) New in 2011. IIV4 03/11/2020 09:16:00 AM EDT completed eCW1 ([facility]) New in 2011. IIV4 03/11/2020 09:16:00 AM EDT completed eCW1 ([facility]) New in 2011. IIV4 03/11/2020 09:16:00 AM EDT completed eCW1 ([facility]) New in 2011. IIV4 03/11/2020 09:16:00 AM EDT completed eCW1 ([facility]) New in 2011. IIV4 06/14/2019 12:00:00 AM EST completed In fluenza Quad IM Pres Free (0.5 mL dose) 06/14/[address] [facility] Medications Medication Brand Name Start Date Product Form Dose Route Admi nistrative Instructions Pharmacy Instructions Status Indications Reaction Description Data Source(s) 100 mcg/0.5 mL 07/15/2020 12:00:00 AM EST suspension 0 INJECT BY [facility] (FIRST DOSE) INJECT BY [facility] (FIRST DOSE) SOLD: 07/15/2020 [facility] 250 [...] DS 800-160 MG eCW1 ( [facility]) Sulfamethoxazole 800 MG / Trimethoprim 1 60 MG Oral Tablet [Bactrim] Bactrim DS 800-160 MG Bactrim DS 800-160 MG 04/05/2020 12:00:00 AM EDT 1.0 {table t} active Bactrim DS 800-160 MG eCW1 ( [facility]) Sulfamethoxazole 800 MG / Trimethoprim 1 60 MG Oral Tablet [Bactrim] Bactrim DS 800-160 MG Bactrim DS 800-160 MG 04/05/2020 12:00:00 AM EDT 1.0 {table t} active Bactrim DS 800-160 MG eCW1 ( [facility]) Sulfamethoxazole 800 MG / Trimethoprim 1 60 MG Oral Tablet [Bactrim] Bactrim DS 800-160 MG Bactrim DS 800-160 MG 04/05/2020 12:00:00 AM EDT 1.0 {table t} suspended Bactrim DS 800-160 MG eCW1 ( [facility]) Sulfamethoxazole 800 MG / Trimethoprim 1 60 MG Oral Tablet [Bactrim] Bactrim DS 800-160 MG Bactrim DS 800-160 MG 04/05/2020 12:00:00 AM EDT 1.0 {table t} active Bactrim DS 800-160 MG eCW1 ( [facility]) Sulfamethoxazole 800 MG / Trimethoprim 1 60 MG Oral Tablet [Bactrim] Bactrim DS 800-160 MG Bactrim DS 800-160 MG 04/05/2020 12:00:00 AM EDT 1.0 {table t} suspended Bactrim DS 800-160 MG eCW1 ( [facility]) Sulfamethoxazole 800 MG / Trimethoprim 1 60 MG Oral Tablet [Bactrim] Bactrim DS 800-160 MG Bactrim DS 800-160 MG 04/05/2020 12:00:00 AM EDT 1.0 {table t} suspended Bactrim DS 800-160 MG eCW1 ( [facility]) Sulfamethoxazole 800 MG / Trimethoprim 1 60 MG Oral Tablet [Bactrim] Bactrim DS 800-160 MG Bactrim DS 800-160 MG 04/05/2020 12:00:00 AM EDT 1.0 {table t} active Bactrim DS 800-160 MG eCW1 ( [facility]) Sulfamethoxazole 800 MG / Trimethoprim 1 60 MG Oral Tablet [Bactrim] Bactrim DS 800-160 MG Bactrim DS 800-160 MG 04/05/2020 12:00:00 AM EDT 1.0 {table t} active Bactrim DS 800-160 MG eCW1 ( [facility]) Sulfamethoxazole 800 MG / Trimethoprim 1 60 MG Oral Tablet [Bactrim] Bactrim DS 800-160 MG Bactrim DS 800-160 MG 04/05/2020 12:00:00 AM EDT 1.0 {table t} active Bactrim DS 800-160 MG eCW1 ( [facility]) 100 mg 03/11/2020 12:00:00 AM [...] Oral Tablet (PROSCAR) 03/07/2020 12:00:00 AM EDT [facility] 20 mg 02/27/2020 12:00:00 AM EDT [...] Pr lian 5 MG eCW1 ([facility]) Finasteride 5 MG Oral Tablet [Proscar] Proscar 5 MG Proscar 5 MG 01/09/2020 12:00:00 AM EDT 1.0 {tablet} active Pr lian 5 MG eCW1 ([facility]) Finasteride 5 MG Oral Tablet FINASTERIDE 01/09/2020 12:00:00 AM EDT ta blet 30 TAKE ONE TABLET BY MOUTH ONCE DAILY TAKE ONE TABLET BY MOUTH ONCE DAILY SOLD: 03/08/2020 [facility] Finasteride 5 MG Oral Tablet [Proscar] Proscar 5 MG Proscar 5 MG 01/09/2020 12:00:00 AM EDT 1.0 {tablet} active Pr lian 5 MG eCW1 ([facility]) Finasteride 5 MG Oral Tablet FINASTERIDE 01/09/2020 12:00:00 AM EDT ta blet 30 TAKE ONE TABLET BY MOUTH ONCE DAILY TAKE ONE TABLET BY MOUTH ONCE DAILY SOLD: 06/02/2020 [facility] Finasteride 5 MG Oral Tablet [Proscar] Proscar 5 MG Proscar 5 MG 01/09/2020 12:00:00 AM EDT 1.0 {tablet} active Pr lian 5 MG eCW1 ([facility]) Finasteride 5 MG Oral Tablet [Proscar] Proscar 5 MG Proscar 5 MG 01/09/2020 12:00:00 AM EDT 1.0 {tablet} active Pr lian 5 MG eCW1 ([facility]) Finasteride 5 MG Oral Tablet [Proscar] Proscar 5 MG Proscar 5 MG 01/09/2020 12:00:00 AM EDT 1.0 {tablet} active Pr lian 5 MG eCW1 ([facility]) Finasteride 5 MG Oral Tablet [Proscar] Proscar 5 MG Proscar 5 MG 01/09/2020 12:00:00 AM EDT 1.0 {tablet} active Pr lian 5 MG eCW1 ([facility]) Finasteride 5 MG Oral Tablet FINASTERIDE 01/09/2020 12:00:00 AM EDT ta blet 30 TAKE ONE TABLET BY MOUTH ONCE DAILY TAKE ONE TABLET BY MOUTH ONCE DAILY SOLD: 01/10/2020 [facility] Finasteride 5 MG Oral Tablet [Proscar] Proscar 5 MG Proscar 5 MG 01/09/2020 12:00:00 AM EDT 1.0 {tablet} active Pr lian 5 MG eCW1 ([facility]) Finasteride 5 MG Oral Tablet [Proscar] Proscar 5 MG Proscar 5 MG 01/09/2020 12:00:00 AM EDT 1.0 {tablet} active Pr lian 5 MG eCW1 ([facility]) Finasteride 5 MG Oral Tablet FINASTERIDE 01/09/2020 12:00:00 AM EDT ta blet 30 TAKE ONE TABLET BY MOUTH ONCE DAILY TAKE ONE TABLET BY MOUTH ONCE DAILY SOLD: 05/07/2020 [facility] Finasteride 5 MG Oral Tablet [Proscar] Proscar 5 MG Proscar 5 MG 01/09/2020 12:00:00 AM EDT 1.0 {tablet} active Pr lian 5 MG eCW1 ([facility]) Finasteride 5 MG Oral Tablet [...] Pr lian 5 MG eCW1 ([facility]) Finasteride 5 MG Oral Tablet FINASTERIDE 01/09/2020 12:00:00 AM EDT ta blet 30 TAKE ONE TABLET BY MOUTH ONCE DAILY TAKE ONE TABLET BY MOUTH ONCE DAILY SOLD: 02/09/2020 [facility] Finasteride 5 MG Oral Tablet [Proscar] Proscar 5 MG Proscar 5 MG 01/09/2020 12:00:00 AM EDT 1.0 {tablet} active Pr lian 5 MG eCW1 ([facility]) Finasteride 5 MG Oral Tablet [Proscar] Proscar 5 MG Proscar 5 MG 01/09/2020 12:00:00 AM EDT 1.0 {tablet} active Pr lian 5 MG eCW1 ([facility]) Finasteride 5 MG Oral Tablet [Proscar] Proscar 5 MG Proscar 5 MG 01/09/2020 12:00:00 AM EDT 1.0 {tablet} active Pr lian 5 MG eCW1 ([facility]) atorvastatin 40 MG Oral Tablet [...] Oral active Take 40 mg by mouth [facility] 2.5 mg 12/20/2019 12:00:00 AM EDT [...] 2.5 mg by mouth Two Times Daily [facility] 10 mg 12/18/2019 12:00:00 AM EDT [...] Tablet (NORVASC) 12/18/2019 12:00:00 AM EDT active [facility] Cephalexin 250 MG Cephalexin 12/15/2019 01:00:00 AM EDT completed NETSMART ([facility] ) 250 mg 12/15/2019 12:00:00 AM EDT capsule 40 TAKE ONE CAPSULE BY MOUTH FOUR TIMES A DAY FOR 10 DAYS TAKE ONE CAPSULE BY MOUTH FOUR TIMES A DAY FOR 10 DAYS SOLD: 12/15/2019 [facility] Tamsulosin HCl 0.4 MG Tamsulosin HCl 11/26/2019 01:00:00 AM EDT 0.4 {mg} completed NETSMART ([facility]) MetFORMIN HCl 1000 MG MetFORMIN HCl 11/26/2019 01:00:00 AM EDT completed NETSMART ([facility]) Pravastatin Sodium 20 MG Pravastatin Sodium 11/26/2019 01:00:00 AM EDT completed NETSMART ([facility]) Atorvastatin Calcium 40 MG Atorvastatin Calcium 11/26/2019 01:00:00 A M EDT completed NETSMART ( [facility]) Losartan Potassium-HCTZ 100-12.5 MG Losartan Potassium-HCTZ 11/26/2019 01:00:00 AM EDT completed NETSMAR T ([facility]) Eliquis 2.5 MG Eliquis 11/26/2019 01:00:00 AM EDT 0 {mg} completed NETSMART ([facility] ) Insulin Detemir 100 UNIT/ML Insulin Detemir 11/26/2019 01:00:00 AM EDT 8.0 {unit} completed NETSMART ([facility]) B12 Folate 800-800 MCG B12 Folate 11/26/2019 01:00:00 AM EDT completed NETSMART ([facility]) Daily Multivitamin Daily Multivitamin 11/26/2019 01:00:00 AM EDT completed NETSMART ([facility]) Omeprazole 20 MG Omeprazole 11/26/2019 01:00:00 AM EDT completed NETSMART ([facility] ) Iron (Ferrous Sulfate) 142 (45 Fe) MG Iron (Ferrous Sulfate) 11/26/2019 01:00:00 AM EDT completed NETSMA RT ([facility]) 40 mg 11/23/2019 12:00:00 AM EDT [...] A M EDT 0 {mg} completed NETSMART ([facility]) 20 mg 11/13/2019 12:00:00 AM EDT tablet [...] Kefle x 500 MG eCW1 ([facility]) Cephalexin 500 MG Oral Capsule [Keflex] Keflex 500 MG Keflex 500 MG 08/23/2019 12:00:00 AM EST suspended Kefle x 500 MG eCW1 ([facility]) Cephalexin 500 MG Oral Capsule [Keflex] Keflex 500 MG Keflex 500 MG 08/23/2019 12:00:00 AM EST suspended Kefle x 500 MG eCW1 ([facility]) Cephalexin 500 MG Oral Capsule [Keflex] Keflex 500 MG Keflex 500 MG 08/23/2019 12:00:00 AM EST active 1 capsul e 1 hour prior to your cystoscopy eCW1 ([facility]) Cephalexin 500 MG Oral Capsule [Keflex] Keflex 500 MG Keflex 500 MG 08/23/2019 12:00:00 AM EST suspended Kefle x 500 MG eCW1 ([facility]) Cephalexin 500 MG Oral Capsule [Keflex] Keflex 500 MG Keflex 500 MG 08/23/2019 12:00:00 AM EST suspended Kefle x 500 MG eCW1 ([facility]) Cephalexin 500 MG Oral Capsule [Keflex] Keflex 500 MG Keflex 500 MG 08/23/2019 12:00:00 AM EST suspended Kefle x 500 MG eCW1 ([facility]) Cephalexin 500 MG Oral Capsule [Keflex] Keflex 500 MG Keflex 500 MG 08/23/2019 12:00:00 AM EST active Keflex 5 00 MG eCW1 ([facility]) Cephalexin 500 MG Oral Capsule [Keflex] Keflex 500 MG Keflex 500 MG 08/23/2019 12:00:00 AM EST suspended Kefle x 500 MG eCW1 ([facility]) Cephalexin 500 MG Oral Capsule [Keflex] Keflex 500 MG Keflex 500 MG 08/23/2019 12:00:00 AM EST suspended Kefle x 500 MG eCW1 ([facility]) Cephalexin 500 MG Oral Capsule [Keflex] Keflex 500 MG Keflex 500 MG 08/23/2019 12:00:00 AM EST suspended 1 capsule 1 hour prior to your cystoscopy eCW1 ([facility]) Cephalexin 500 MG Oral Capsule [Keflex] Keflex 500 MG Keflex 500 MG 08/23/2019 12:00:00 AM EST active Keflex 5 00 MG eCW1 ([facility]) Cephalexin 500 MG Oral Capsule [Keflex] Keflex 500 MG Keflex 500 MG 08/23/2019 12:00:00 AM EST suspended Kefle x 500 MG eCW1 ([facility]) Cephalexin 500 MG Oral Capsule [Keflex] Keflex 500 MG Keflex 500 MG 08/23/2019 12:00:00 AM EST active Keflex 5 00 MG eCW1 ([facility]) Cephalexin 500 MG Oral Capsule [Keflex] Keflex 500 MG Keflex 500 MG 08/23/2019 12:00:00 AM EST suspended Kefle x 500 MG eCW1 ([facility]) Cephalexin 500 MG Oral Capsule [Keflex] Keflex 500 MG Keflex 500 MG 08/23/2019 12:00:00 AM EST suspended Kefle x 500 MG eCW1 ([facility]) Cephalexin 500 MG Oral Capsule [Keflex] Keflex 500 MG Keflex 500 MG 08/23/2019 12:00:00 AM EST active Keflex 5 00 MG eCW1 ([facility]) Cephalexin 500 MG Oral Capsule [Keflex] Keflex 500 MG Keflex 500 MG 08/23/2019 12:00:00 AM EST active Keflex 5 00 MG eCW1 ([facility]) Cephalexin 500 MG Oral Capsule [Keflex] Keflex 500 MG Keflex 500 MG 08/23/2019 12:00:00 AM EST suspended Kefle x 500 MG eCW1 ([facility]) Cephalexin 500 MG Oral Capsule [Keflex] Keflex 500 MG Keflex 500 MG 08/23/2019 12:00:00 AM EST active Keflex 5 00 MG eCW1 ([facility]) Cephalexin 500 MG Oral Capsule [Keflex] Keflex 500 MG Keflex 500 MG 08/23/2019 12:00:00 AM EST suspended Kefle x 500 MG eCW1 ([facility]) Cephalexin 500 MG Oral Capsule [Keflex] Keflex 500 MG Keflex 500 MG 08/23/2019 12:00:00 AM EST suspended Kefle x 500 MG eCW1 ([facility]) 20 mg 08/21/2019 12:00:00 AM [...] TABLET BY MOUTH EVERY DAY SOLD: 07/25/2019 [facility] Tamsulosin hydrochloride 0.4 MG Oral Cap delphine Tamsulosin HCl 0.4 MG Oral Capsule (FLOMAX) Tamsulosin HCl 0.4 MG Oral Capsule (FLOMAX) 07/17/2019 12:00 :00 AM EST 0.4 mg Oral aborted Take 1 capsule b y mouth daily [facility] 0.4 mg 07/17/2019 12:00:00 AM EST capsule 30 TAKE ONE CAPSULE BY MOUTH EVERY DAY TAKE ONE CAPSULE BY MOUTH EVERY DAY SOLD: 07/18/2019 [facility] Misc. Devices (DURABLE MEDICAL EQUIPMENT SEE SIG) XX [facility] 97 [id number] 07/03/2019 12:00:00 AM EST aborted Use as directed. Wheel chair Dx: Back pain [facility] Ibuprofen 200 MG Ibuprofen 06/26/2019 12:00:00 AM EST completed NETSMART ([facility]) Misc. Devices (DURABLE MEDICAL EQUIPMENT SEE SIG) XX [facility] 97 [id number] 06/23/2019 12:00:00 AM EST aborted Use as directed. Urinary leg bag Dx: R33.9 [facility] Tylenol Extra Strength 500 MG Tylenol Extra Strength 06/20/2019 12:00:00 AM EST 0 {tablet} completed NET SMART ([facility]) POLYETHYLENE GLYCOL 3350 142 MG/ML Oral Solution Polyethylene Glycol 3350 Oral Packet (MIRALAX) Polyethylene Glycol 3350 Oral Packet (MIRALAX) 019 12:00:00 AM EST 17 g Oral aborted Take 1 packet by mouth daily Please substitute bottle for packets, if packets are unavailable. [facility] Tamsulosin hydrochloride 0.4 MG Oral Cap delphine Tamsulosin HCl 0.4 MG Oral Capsule (FLOMAX) Tamsulosin HCl 0.4 MG Oral Capsule (FLOMAX) 06/16/2019 12:00 :00 AM EST 0.4 mg Oral aborted Take 1 capsule b y mouth daily [facility] Lantus SoloStar 100 UNIT/ML Lantus SoloStar 06/16/2019 12:00:00 AM EST 8.0 {unit} completed NETSMART ([facility]) MetFORMIN HCl 1000 MG MetFORMIN HCl 06/16/2019 12:00:00 AM EST completed NETSMART ([facility]) Senna 8.6 MG Senna 06/16/2019 12:00:00 AM EST 2.0 {tablet} completed NETSMART ([facility]) 3 ML heparin sodium, porcine 100 UNT/ML Prefilled Syringe Heparin Lock Flush 100 UNIT/ML Intravenous Solution Heparin Lock Flush 100 UNIT/ML Intraveno us Solution 06/16/2019 12:00:00 AM EST 500 U Intracatheter aborted Encounter for long-term (current) use of antibioticsDiscitis of lumbar regionEpidural abscess 5 mLs by Intracatheter route as needed (For after IV infusion and as needed) [facility] Encounter for long-term (current) use of [...] into the vein every 24 (twenty-four) hours [facility] Encounter for long-term (current) use of antibiotics Discitis of lumbar region Epidural abscess Vancomycin HCl 1.5 GM Intravenous Solution Reconstitut ed (VANCOCIN) [id number] 06/16/2019 12:00:00 AM EST 1500 mg Intravenous a borted Encounter for long-term (current) use of antibioticsDiscitis of lumbar regionEpidural abscess Inject 1.5 g into the vein every 24 (twenty-four) hour s [facility] Encounter for long-term (current) use of antibiotics Discitis of lumbar region Epidural abscess Normal Saline Flush 0.9 % Intravenous Solution [id number] 06/16/2019 12:00:00 AM EST 10 mL Intravenous aborted Encounte r for long-term (current) use of antibioticsDiscitis of lumbar regionEpidural abscess I nject 10 mLs into the vein as needed (For before and after infusion and prn) [facility] Encounter for long-term (current) use of antibiotics Discitis of lumbar region Epidural abscess Tamsulosin hydrochloride 0.4 MG Oral Cap delphine Tamsulosin HCl 0.4 MG Oral Capsule (FLOMAX) Tamsulosin HCl 0.4 MG Oral Capsule (FLOMAX) 06/16/2019 12:00 :00 AM EST 0.4 mg Oral aborted Take 1 capsule b y mouth daily [facility] POLYETHYLENE GLYCOL 3350 142 MG/ML Oral Solution Polyethylene Glycol 3350 Oral Packet (MIRALAX) Polyethylene Glycol 3350 Oral Packet (MIRALAX) 019 12:00:00 AM EST 17 g Oral active Take 1 packet by mouth daily Please substitute bottle for packets, if packets are unavailable. [facility] Tamsulosin hydrochloride 0.4 MG Oral Cap delphine Tamsulosin HCl 0.4 MG Oral Capsule (FLOMAX) Tamsulosin HCl 0.4 MG Oral Capsule (FLOMAX) 06/16/2019 12:00 :00 AM EST 0.4 mg Oral active Take 1 capsule b y mouth daily [facility] Ferrous Sulfate 325 (65 Fe) MG Ferrous Sulfate 06/16/2019 12:00:00 AM EST completed NETSMART ([facility]) Losartan Potassium 100 MG Losartan Potassium 06/16/2019 12:00:00 AM EST completed NETSMART ([facility]) Tamsulosin HCl 0.4 MG Tamsulosin HCl 06/16/2019 12:00:00 AM EST completed NETSMART ([facility]) Omeprazole 20 MG Omeprazole 06/16/2019 12:00:00 AM EST completed NETSMART ([facility] ) Pravastatin Sodium 20 MG Pravastatin Sodium 06/16/2019 12:00:00 AM EST completed NETSMART ([facility]) POLYETHYLENE GLYCOL 3350 142 MG/ML Oral Solution Polyethylene Glycol 3350 Oral Packet (MIRALAX) Polyethylene Glycol 3350 Oral Packet (MIRALAX) 019 12:00:00 AM EST 17 g Oral aborted Take 1 packet by mouth daily Please substitute bottle for packets, if packets are unavailable. [facility] Heparin Lock Flush 100 UNIT/ML Heparin Lock Flush 06/16/2019 12:00: 00 AM EST 5.0 {ml} completed NETSMART ([facility]) CefTRIAXone Sodium 2 GM CefTRIAXone Sodium 06/16/2019 12:00:00 AM EST completed NETSMART ([facility]) Normal Saline Flush 0.9 % Normal Saline Flush 06/16/2019 12:00:00 A M EST 10.0 {ml} completed NETSMART ([facility]) Vancomycin HCl 1.5 GM Vancomycin HCl 06/16/2019 12:00:00 AM EST completed NETSMART ([facility]) Acetaminophen 325 MG Oral Tablet Acetaminophen 325 MG Oral T ablet 06/15/2019 12:00:00 AM EST 975 mg Oral active Take 3 tablets by mouth every 8 (eight) hours [facility] sennosides, PRISON 8.6 MG Oral Tablet Senna 8.6 MG Oral T ablet Senna 8.6 MG Oral Tablet 06/15/2019 12:00:00 AM EST 2 {tbl} Oral aborted Take 2 tablets by mouth nightly [facility] Ceftriaxone 2000 MG Injection cefTRIAXone (ROCEPHIN) i nfusion 2 g cefTRIAXone (ROCEPHIN) infusion 2 g 06/15/2019 12:00:00 AM EST 2 g Intraveno us completed Inject 2 g into the vein every 2 4 (twenty-four) hours [facility] Vancomycin HCl 1500 MG/300ML Intravenous Solution (VANCOCIN) [id number] 06/15/2019 12:00:00 AM EST 1500 mg Intravenous aborted Inject 300 mLs into the vein every 24 (twenty-four) hours [facility] ferrous sulfate 325 MG Oral Tablet Ferrous Sulfate 325 (65 Fe) MG Oral Tablet Ferrous Sulfate 325 (65 Fe) MG Oral Tablet 06/15/2019 12:00:00 AM EST 325 mg Oral active Take 1 tablet by zaira th daily with [facility] sennosides, PRISON 8.6 MG Oral Tablet Senna 8.6 MG Oral T ablet Senna 8.6 MG Oral Tablet 06/15/2019 12:00:00 AM EST 2 {tbl} Oral aborted Take 2 tablets by mouth nightly [facility] sennosides, PRISON 8.6 MG Oral Tablet Senna 8.6 MG Oral T ablet Senna 8.6 MG Oral Tablet 06/15/2019 12:00:00 AM EST 2 {tbl} Oral [facility]orted [facility] MG Oral Tablet Ferrous Sulfate 325 (65 Fe) MG Oral Tablet Ferrous Sulfate 325 (65 Fe) MG Oral Tablet 06/15/2019 12:00:00 AM EST 325 mg Oral aborted Take 1 tablet by zaira daily with [facility] ferrous sulfate 325 MG Oral Tablet Ferrous Sulfate 325 (65 Fe) MG Oral Tablet Ferrous Sulfate 325 (65 Fe) MG Oral Tablet 06/15/2019 12:00:00 AM EST 325 mg Oral aborted Take 1 tablet by zaira daily with [facility] ferrous sulfate 325 MG Oral Tablet Ferrous Sulfate 325 (65 Fe) MG Oral Tablet Ferrous Sulfate 325 (65 Fe) MG Oral Tablet 06/15/2019 12:00:00 AM EST 325 mg Oral aborted Take 1 tablet by zaira daily with [facility] influenza vac split quad (FLUARIX) injection 6 months and ol tatyana 0.5 mL [id number] 06/14/2019 07:11:50 PM EST 0.5 mL Intramuscular complet ed 0.5 mL, Intramuscular, Give Now, Starting Wed06/14/19 at 1911, For 1 dose [facility] Medication administered onsite sodium phosphate 6 mmol/100 mL IVPB 06/14/2019 12:00:00 PM EST 6 mmol Intravenous completed 6 mmol, Intra venous, at 50 mL/hr, Every 2 hours, First dose (after last reorder) on Wed06/14/19 at 1200, For 2 doses
Slower infusion rate (e.g. over 4 to 6 hours) are recommended in patients with renal impairment and/or less severe hypophosphatemia.
[facility] Medication administered onsite magnesium sulfate in dextrose 5 % infusion (premix) 8 mEq [id number] 06/14/2019 11:00:00 AM EST 8 meq Intravenous completed 8 mEq, Intravenous, Administer over 60 Minutes, Every 1 hour, First dose on Wed06/14/19 at 1100, For 2 doses
each 8 mEq equivalent to 1 gm
[facility] Medication administered onsite Tamsulosin hydrochloride 0.4 MG Oral Capsule tamsulosi n (FLOMAX) capsule 0.4 mg tamsulosin (FLOMAX) capsule 0.4 mg 06/14/2019 11:00:00 AM EST 0.4 mg Oral active 0.4 mg, Oral, Daily Standard, First dose on Wed06/14/19 at 1100, For 30 days
Swallow whole. Do not crush, chew or open.
[facility] Medication administered onsite Magnesium Oxide 400 MG Oral Tablet Magnesium Oxide (MA G-OX) tablet 400 mg Magnesium Oxide (MAG-OX) tablet 400 mg 06/14/2019 10:30:00 AM EST 4 00 mg Oral completed 400 mg, Oral, Once, Wed08/15/18 at 1030, For 1 dose [facility] Medication administered onsite potassium phosphate 155 [...] mEq), and potassium 45 mg (1.1 mEq)
[facility] Medication administered onsite Hydralazine Hydrochloride 20 [...] minutes.TO BE GIVEN ONLY IF S BP>170
[facility] Medication administered onsite sodium phosphate 6 mmol/100 mL IVPB 06/13/2019 12:00:00 PM EST 6 mmol Intravenous completed 6 mmol, Intra venous, at 50 mL/hr, Every 2 hours, First dose on Wed06/13/19 at 1200, For 2 doses
Slower infusion rate (e.g. over 4 to 6 hours) are recommended in patients with renal impairment and/or less severe hypophosphatemia.
[facility] Medication administered onsite Bisacodyl 10 MG Rectal Suppository bisacodyl (DULCOLAX ) suppository 10 mg bisacodyl (DULCOLAX) suppository 10 mg 06/13/2019 10:30:00 AM EST 10 mg Rectal completed 10 mg, Rectal, Once, Wed06/13/19 at 1030, For 1 dose [facility] Medication administered onsite Bisacodyl 10 MG Rectal Suppository bisacodyl (DULCOLAX ) suppository 10 mg bisacodyl (DULCOLAX) suppository 10 mg 06/13/2019 10:27:21 AM EST 10 mg Rectal active 10 mg, Rectal, Daily PRN, Constipation, Starting Wed06/13/19 at 1027, For 30 days [facility] Medication administered onsite sodium chloride (preservative [...] mL Heparin 10 units/mL to lock.Reference Policy [facility] Central Line Policy.
[Order 2 End] [Order 3 Start] Name: sodium chloride (preservative free) 0.9 % flush 10 mL Signed Summary: 10 mL, Intravenous, Every 12 hours, First dose on Wed06/13/19 at 1030, For 30 days
WHEN NOT IN USE - Verify blood return before use. Flush with 10 mL of Sodium Chloride 0.9 % and 2 mL Heparin 10 units/mL.Reference Policy [address] Central Line Policy.
[Order 3 End] [Order 4 Start] Name: heparin lock flush 10 UNIT/ML injection 20 Units Signed Summary: 20 Units, Intravenous, Every 12 hours, First dose on Wed06/13/19 at 1030, For 30 days
WHEN NOT IN USE - Verify blood return before use. Flush with 10 mL of Sodium Chloride 0.9 % and 2 mL Heparin 10 units/mL.Reference Policy [address] Central Line Policy.
[Order 4 End] [facility] Medication administered onsite lidocaine (XYLOCAINE) 1 % injection 5 mL [id number] 06/13/2019 10:26:31 AM EST 5 mL Subcutaneous active 5 m L, Subcutaneous, Once PRN, for PICC insertion, Starting Wed06/13/19 at 1026, For 30 days [facility] Medication administered onsite Ceftriaxone 2000 MG Injection cefTRIAXone (ROCEPHIN) I VPB (premix) 2 g cefTRIAXone (ROCEPHIN) IVPB (premix) 2 g 06/12/2019 06:30:00 PM EST 2 g Intravenous active 2 g, Intraven ous, at 100 mL/hr, Every 24 hours, First dose on Wed06/12/19 at 1830, For 7 days
Discouraged Uses: Empiric treatment of post-surgical meningitis (ceftazidime preferred)
[facility] Medication administered onsite Losartan Potassium 50 MG Oral Tablet losartan (COZAAR) tablet 50 mg losartan (COZAAR) tablet 50 mg 06/12/2019 11:15:00 AM EST 50 mg Oral active 50 mg, Oral, Daily Standard, First dose on Wed06/12/19 at 1115, For 30 days
Check vital signs before administering
[facility] Medication administered onsite Insulin Glargine 100 [...] glucose more than 400 mg/dL: notify provider
[facility] Medication administered onsite magnesium sulfate in dextrose 5 % infusion (premix) 8 mEq [id number] [id number] 06/12/2019 09:00:00 AM EST 8 meq Intravenous completed 8 mEq, Intravenous, Administer over 60 Minutes, Every 1 hour, First dose on Wed06/12/19 at 0900, For 3 doses
each 8 mEq equivalent to 1 gm
[facility] Medication administered onsite 0.4 ML Enoxaparin sodium 100 MG/ML Prefi lled Syringe enoxaparin sodium (LOVENOX) injection 40 mg enoxaparin sodium (LOVENOX) injection 40 mg 06/12/2019 09:00:00 AM EST 40 mg Subcutaneous active 40 mg, Subcutaneous, Daily Standard, First dose on Wed06/12/19 at 0900, For 30 days [facility] Medication administered onsite POLYETHYLENE GLYCOL 3350 [...] due to potential increased risk for aspiration.
[facility] Medication administered onsite Hydralazine Hydrochloride 20 [...] minutes.TO BE GIVEN ONLY IF S BP>170
[facility] Medication administered onsite sennosides, PRISON 8.6 MG Oral Tablet senna 8.6 MG 2 tablet sen na 8.6 MG 2 tablet 06/11/2019 10:00:00 PM EST 2 {tbl} Oral active 2 tablet, Oral, Nightly, First dose on 06/11/19 at 2200, For 30 days [facility] Medication administered onsite Insulin Lispro 100 [...] Summary or Summary Report within the ED.
[facility] Medication administered onsite Glucose 0.4 MG/MG Oral Gel glucose (GLUTOSE) 40 % oral gel 15 g glucose (GLUTOSE) 40 % oral gel 15 g 06/11/2019 02:11:29 PM EST 15 g Oral active 15 g, Oral, PRN, Low blood s ugar, for gluose 55-69 mg/dl and able to take PO, Starting Wed06/11/19 at 1411, For 30 days [facility] Medication administered onsite vancomycin (VANCOCIN) infusion 1,500 mg/300 mL (premix) [id number] 06/11/2019 09:08:45 AM EST 1500 mg Intravenous active 1,500 mg, Intravenous, Administer over 90 Minutes, Every 24 hours, First dose (after last modification) on 06/11/19 at 0915, For 7 doses [facility] Medication administered onsite Piperacillin 3000 MG / tazobactam 375 MG Injection piperacillin-tazobactam (ZOSYN) IVPB 3.375 g (premix) piperacillin-tazobactam (ZOSYN) IVPB 3.3 75 g (premix) 06/11/2019 09:00:00 AM EST 3.375 g Intravenous abo rted 3.375 g, Intravenous, Administer over 4 Hours, Every 8 hours Standard (3 times per day), First dose on 06/11/19 at 0900, For 3 days [facility] Medication administered onsite Acetaminophen 325 MG Oral Tablet acetaminophen (TYLENO L) tablet 975 mg acetaminophen (TYLENOL) tablet 975 mg 06/11/2019 08:15:00 AM EST 97 5 mg Oral active 975 mg, Oral, E very 8 hours, First dose on 06/11/19 at 0815, For 30 days
Maximum daily dose of acetaminophen is 3,000 mg from all sources in 24 hours.
[facility] Medication administered onsite dextrose 50 % IV solution 25 mL [id number] 06/10/2019 11:20:[address] 25 mL Intravenous active 25 mL, Intrav enous, PRN, Other, blood glucose <55, Starting 06/10/19 at 2320, For 30 days
Not for midline administration.
[facility] Medication administered onsite Glucagon 1 MG Injection glucagon (human recombinant) ( GLUCAGEN) injection 1 mg glucagon (human recombinant) (GLUCAGEN) injection 1 mg 06/10/2019 11:20:42 PM EST 1 mg Intramuscular active 1 mg, Intramuscular, PRN, for glucose <55 without IV access, Starting 06/10/19 at 2320, For 30 days [facility] Medication administered onsite Glucose 0.4 MG/MG Oral Gel glucose (GLUTOSE) 40 % oral gel 15 g glucose (GLUTOSE) 40 % oral gel 15 g 06/10/2019 11:20:42 PM EST 15 g Oral active 15 g, Oral, PRN, Low blood s ugar, for gluose 55-69 mg/dl and able to take PO, Starting 06/10/19 at 2320, For 30 days [facility] Medication administered onsite tramadol hydrochloride 50 MG Oral Tablet traMADol HCl 50 MG Oral Tablet (ULTRAM) traMADol HCl 50 MG Oral Tablet (ULTRAM) 50 mg Oral aborted Take 50 mg by mouth every 6 (six) hours as needed for Pain [facility] Acetaminophen 325 MG Oral Tablet Acetaminophen 325 MG Oral Tablet 650 mg Oral aborted Take 650 mg by mouth every 6 (six) hours as needed for Pain [facility] meloxicam 15 MG Oral Tablet Meloxicam 15 MG Oral Table t (MOBIC) Meloxicam 15 MG Oral Tablet (MOBIC) 15 mg Oral aborted Take 15 mg by mouth daily [facility] Pravastatin Sodium 20 MG Oral Tablet Pra vastatin Sodium 20 MG Oral Tablet (PRAVACHOL) Pravastatin Sodium 20 MG Oral Tablet (PRAVACHOL) 20 mg Oral aborted Take 20 mg by mouth daily [facility] Insurance Providers Payer name Policy type / Coverage type Policy ID Covered libertarian ID Covered libertarian's relationship to smith Policy Smith Plan Information MEDICARE BLUE PPO 306 [id number] SP [id number] MEDICARE BLUE PPO 306 [id number] SP [id number] EXCE[employer] BCBS B [id number] S VYM MEDICARE [id number] SP [id number] EXCELLUS MEDICARE BLUE PPO G [id number] Self [id number] [employer] BCBS MCR HMO [id number] S [id number] MEDICARE BLUE PPO 306 [id number] SP [id number] MEDICARE BLUE PPO 306 [id number] SP [id number] BLUE CROSS BLUE SHIELD MCR -OP [id number] 18 [id number] MEDICARE BLUE PPO 306 [id number] SP [id number] BLUE CROSS BLUE SHIELD -O/P [id number] 18 [id number] MEDICARE BLUE PPO 306 [id number] SP [id number] [employer] BCBS B [id number] S VYM MEDICARE BLUE PPO 306 [id number] SP [id number] [place]BS [place] PPO 302/307 [id number] MEDICARE [id number] [facility] [id number] [id number] [facility] Advantage Commercial [id number] Self [id number] MVP (pr) Medigap Part B [id number] Family Dependent [id number] [facility] MCR Advantage Commercial [id number] Self [id number] [facility] Advantage Commercial [id number] Self [id number] O UNAVAILABLE UNAVAILA BLE Problems, Conditions, and Diagnoses Code Display Name Description Problem Type Effective Dates Data Source(s) 67386968 Essential hypertension Essential hypertension Problem 01/15/2020 12:00:00 AM EDT MEDENT (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 Problem 01/08/2020 12:00:00 AM EDT eCW1 ([facility]) [id number] Carotid artery stenosis Carotid artery stenosis Proble m 12/25/2019 12:00:00 AM EDT MEDENT ([facility], ) [id number] Ischemic stroke Ischemic stroke Problem 12/25/2019 12:0 0:00 AM EDT MEDENT ([facility] ) I48.92 Unspecified atrial flutter Unspecified atrial flutter Problem 11/25/2019 01:00:00 AM EDT NETSMART ([facility] ) 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, or unspecified chronic kidney disease Hypertensive chronic kidney disease with stage 1 through stage 4 chronic kidney disease, or unspecified chronic kidney disease Problem 11/25/2019 01:00:00 AM ED T NETSMART ([facility]) 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 Problem 11/25/2019 01:00:00 AM EDT NETSMART ([facility] ) N18.9 Chronic kidney disease, unspecified Chronic kidn ey disease, unspecified Problem 11/25/2019 01:00:00 AM EDT NETSMART ([facility]) D63.1 Anemia in chronic kidney disease Anemia in chronic kid sonal disease Problem 11/25/2019 01:00:00 AM EDT NETSMART ([facility] ) E11.40 Type 2 diabetes mellitus with diabetic n europathy, unspecified Type 2 diabetes mellitus with diabetic neuropathy, unspecified Problem 11/25/2019 01:00:00 AM EDT NETSMART ([facility] ) M48.061 Spinal stenosis, lumbar region without n eurogenic claudication Spinal stenosis, lumbar region without neurogenic claudication Problem 11/25/2019 01:00:00 AM EDT NETSMART ([facility] ) 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, lumbar region Intervertebral disc disorders with radiculopathy, lumbar region Problem 11/25/2019 01:00:00 AM EDT NETSMART ([facility] ) M54.30 Sciatica, unspecified side Sciatica, unspecified side Problem 11/25/2019 01:00:00 AM EDT NETSMART ([facility] ) M19.90 Unspecified osteoarthritis, unspecified site Unspecified osteoarthritis, unspecified site Problem 11/25/2019 01:00:00 AM EDT NETSMART ([facility]) D50.9 Iron deficiency anemia, unspecified Iron deficie ncy anemia, unspecified Problem 11/25/2019 01:00:00 AM EDT NETSMART ([facility]) R33.8 Other retention of urine Other retention of urine Prob norberto 11/25/2019 01:00:00 AM EDT NETSMART ([facility] ) Z46.6 Encounter for fitting and adjustment of urinary device Encounter for fitting and adjustment of urinary device Problem 11/25/2019 01:00:00 AM EDT NETSMART ([facility]) Z91.81 History of falling History of falling Problem 0 01:00:00 AM EDT NETSMART ([facility]) Z79.4 FPC (current) use of insulin FPC (cu rrent) use of insulin Problem 11/25/2019 01:00:00 AM EDT NETSMART ([facility]) Z79.01 long term care phlebotomist (current) use of anticoagulant s FPC (current) use of anticoagulants Problem 11/25/2019 01:00:00 AM EDT NETSMART ([facility]) Z87.891 Personal history of nicotine dependence Personal history of nicotine dependence Problem 11/25/2019 01:00:00 AM EDT NETSMART ([facility]) 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 ebral infarction affecting right dominant side Problem 11/24/2019 01:00:00 AM EDT NET SMART ([facility]) R33.9 Urinary retention Urinary retention Problem 08/23/2019 12:00:00 AM EST eCW1 ([facility]) R33.9 Urinary retention Urinary retention Problem 08/23/2019 12:00:00 AM EST eCW1 ([facility]) Z46.6 Encounter for fitting and adjustment of urinary device Encounter for fitting and adjustment of urinary device Problem 08/10/2019 12:00:00 AM EST NETSMART ([facility]) R33.8 Other retention of urine Other retention of urine Prob norberto 08/10/2019 12:00:00 AM EST NETSMART ([facility] ) E11.40 Type 2 diabetes mellitus with diabetic n europathy, unspecified Type 2 diabetes mellitus with diabetic neuropathy, unspecified Problem 08/10/2019 12:00:00 AM EST NETSMART ([facility] ) 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, or unspecified chronic kidney disease Hypertensive chronic kidney disease with stage 1 through stage 4 chronic kidney disease, or unspecified chronic kidney disease Problem 08/10/2019 12:00:00 AM ES T NETSMART ([facility]) 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 Problem 06/16/2019 12:00:00 AM EST NETSMART ([facility]) 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 Problem 06/16/2019 12:00:00 AM EST NETSMART ([facility] ) N18.9 Chronic kidney disease, unspecified Chronic kidn ey disease, unspecified Problem 06/16/2019 12:00:00 AM EST NETSMART ([facility]) M19.90 Unspecified osteoarthritis, unspecified site Unspecified osteoarthritis, unspecified site Problem 06/16/2019 12:00:00 AM EST NETSMART ([facility]) Z91.81 History of falling History of falling Problem 9 12:00:00 AM EST NETSMART ([facility]) Z79.4 FPC (current) use of insulin FPC (cu rrent) use of insulin Problem 06/16/2019 12:00:00 AM EST [facility] R33.9 Retention of urine, unspecified Retention of urine, un specified Problem 06/16/2019 12:00:00 AM EST NETSMART ([facility] ) Z51.81 Encounter for therapeutic drug level mon itoring Encounter for therapeutic drug level monitoring Problem 06/16/2019 12:00:00 AM EST [facility] Z79.2 long term care phlebotomist (current) use of antibiotics L robert term (current) use of antibiotics Problem 06/16/2019 12:00:00 AM EST [facility] ([facility]) M46.46 Discitis, unspecified, lumbar region Dis citis, unspecified, lumbar region Problem 06/16/2019 12:00:00 AM [facility] M46.46 Discitis, unspecified, lumbar region Dis citis, unspecified, lumbar region Problem 06/14/2019 12:00:00 AM EST [facility] [id number] Discitis, unspecified, lumbar region Discitis, u nspecified, lumbar region Diagnosis 07/18/2019 01:14:00 PM [facility] 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 granuloma Diagnosis 07/18/2019 01:14:00 PM [facility] 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, unspeci fied Extradural and subdural abscess, unspecified Diagnosis 07/10/2019 10:52:00 AM [facility] R33.9 Retention of urine, unspecified RETENTION OF URINE, UN SPECIFIED Diagnosis 06/30/2019 09:29:00 AM [facility] Z792 long term care phlebotomist (current) use of antibiotics L robert term (current) use of antibiotics Diagnosis 06/26/2019 02:46:00 PM [facility] R33.9 Retention of urine, unspecified Retention of urine, un specified Diagnosis 06/15/2019 02:55:41 PM [facility] I10 Essential (primary) hypertension Essential (primary) h ypertension Diagnosis 06/13/2019 09:07:47 PM [facility] Surgeries/Procedures Procedure Description Date Indications Data Source(s) Medication: Lidocaine HCl 2% Jelly 5mL Intravesically 08/05/2020 12:00:00 AM EST eCW1 ([facility]) Medication: Lidocaine HCl 2% Jelly 5mL Intravesically 07/16/2020 12:00:00 AM EST eCW1 ([facility]) BLDR IRRIGATION SMPL LAVAGE&/INSTLJ 06/27/2020 12:00:0 0 AM EST eCW1 ([facility]) Medication: Lidocaine HCl 2% Jelly 5mL Intravesically 06/20/2020 12:00:00 AM EST eCW1 ([facility]) Medication: Lidocaine HCl 2% Jelly 5mL Intravesically 05/20/2020 12:00:00 AM EST eCW1 ([facility]) Burt Catheter Insertion 20F 04/05/2020 12:00:00 AM ED T eCW1 ([facility]) Medication: Lidocaine HCl 2% Jelly 5mL Intravesically 03/26/2020 12:00:00 AM EDT eCW1 ([facility]) TSTG ANS FUNCJ CARDIOVAGAL INNERVAJ PARASYMP 0 12:00:00 AM EDT [facility] ([facility]) TSTG ANS FUNCJ CARDIOVAGAL INNERVAJ PARASYMP 0 12:00:00 AM EDT [facility] ([facility]) TESTING AUTONOMIC NERVOUS SYSTEM FUNCTION 01/26/2020 1 2:00:00 AM EDT [facility] ([facility] ) TESTING AUTONOMIC NERVOUS SYSTEM FUNCTION 01/26/2020 1 2:00:00 AM EDT [facility] ([facility] ) NON-INVASIVE PHYSIOLOGIC STUDY EXTREMITY 3 LEVLS 01/25 12:00:00 AM EDT [facility] ([facility] ) Burt Catheter Coude Insertion 20F 01/09/2020 12:00:00 AM EDT eCW1 ([facility]) Magnetic Resonance Angiogtaphy Head W/O Contrast Material(S) 01/01/2020 12:00:00 AM EDT [facility] ([facility]) Magnetic Resonance Angiogtaphy Head W/O Contrast Material(S) 01/01/2020 12:00:00 AM EDT [facility] ([facility]) Magnetic Resonance Angiography Neck W/O And Then With Contra st ML 01/01/2020 12:00:00 AM EDT [facility] ([facility]) Magnetic Resonance Angiography Neck W/O And Then With Contra st ML 01/01/2020 12:00:00 AM EDT [facility] ([facility]) Office Visit, Est Pt., Level 3 FC 11/16/2019 12:00:00 AM EDT eCW1 ([facility]) Office Visit, Est Pt., Level 3 PC 11/16/2019 12:00:00 AM EDT eCW1 ([facility]) INSERT BLADDER CATH, COMPLEX 11/16/2019 12:00:00 AM ED T eCW1 ([facility]) Office Visit, New Pt., Level 2 FC 08/23/2019 12:00:00 AM EST eCW1 ([facility]) Office Visit, New Pt., Level 3 PC 08/23/2019 12:00:00 AM EST eCW1 ([facility]) POCT GLUCOSE, DOCKED POCT GLUCOSE, DOCKED Routine 06/15/2019 11:39 AM EST 06/15/2019 04:39:00 PM [facility] IRON BINDING CAPACITY TOTAL FE BINDING CAPACITY STAT 9 9:31 AM EST 06/15/2019 02:31:00 PM [facility] BLOOD COUNT COMPLETE AUTOMATED CBC STAT 06/15/2019 9:31 A M EST 06/15/2019 02:31:00 PM [facility] FERRITIN FERRITIN LEVEL STAT 06/15/2019 9:31 AM EST 06/15/2019 02:31:00 PM [facility] DRUG SCREEN QUALITATIVE VANCOMYCIN VANCOMYCIN, TROUGH Routine 06/15/2019 9:31 AM EST 06/15/2019 02:31:00 PM EST [facility] POCT GLUCOSE, DOCKED POCT GLUCOSE, DOCKED Routine 06/15/2019 7:51 AM EST 06/15/2019 12:51:00 PM [facility] BLOOD COUNT COMPLETE AUTO&AUTO DIFRNTL WBC COUNT CBC AND DIFFER ENTIAL Routine 06/15/2019 3:15 AM EST 06/15/2019 08:15:00 AM [facility] PHOSPHORUS INORGANIC PHOSPHORUS LEVEL Routine 06/15/2019 3:[address] 06/15/2019 08:15:00 AM [facility] MAGNESIUM MAGNESIUM LEVEL Routine 06/15/2019 3:15 AM EST 06/15/2019 08:15:00 AM [facility] BASIC METABOLIC PANEL CALCIUM TOTAL BASIC METABOLIC PANEL Routi ne 06/15/2019 3:15 AM EST 06/15/2019 08:15:00 AM [facility] GLUCOSE QUANTITATIVE BLOOD XCPT REAGENT STRIP POCT GLUCOSE, DOC KED Routine 06/14/2019 8:36 PM EST 06/15/2019 01:36:00 AM [facility] GLUCOSE QUANTITATIVE BLOOD XCPT REAGENT STRIP POCT GLUCOSE, DOC KED Routine 06/14/2019 4:25 PM EST 06/14/2019 09:25:00 PM [facility] GLUCOSE QUANTITATIVE BLOOD XCPT REAGENT STRIP POCT GLUCOSE, DOC KED Routine 06/14/2019 11:42 AM EST 06/14/2019 04:42:00 PM [facility] BLOOD COUNT COMPLETE AUTOMATED CBC Routine 06/14/2019 8:28 A M EST 06/14/2019 01:28:00 PM [facility] PHOSPHORUS INORGANIC PHOSPHORUS LEVEL Routine 06/14/2019 8:[address] 06/14/2019 01:28:00 PM [facility] MAGNESIUM MAGNESIUM LEVEL Routine 06/14/2019 8:28 AM EST 06/14/2019 01:28:00 PM [facility] BASIC METABOLIC PANEL CALCIUM TOTAL BASIC METABOLIC PANEL Routi ne 06/14/2019 8:28 AM EST 06/14/2019 01:28:00 PM [facility] GLUCOSE QUANTITATIVE BLOOD XCPT REAGENT STRIP POCT GLUCOSE, DOC KED Routine 06/14/2019 7:58 AM EST 06/14/2019 12:58:00 PM [facility] GLUCOSE QUANTITATIVE BLOOD XCPT REAGENT STRIP POCT GLUCOSE, DOC KED Routine 06/13/2019 9:04 PM EST 06/14/2019 02:04:00 AM [facility] GLUCOSE QUANTITATIVE BLOOD XCPT REAGENT STRIP POCT GLUCOSE, DOC KED Routine 06/13/2019 4:28 PM EST 06/13/2019 09:28:00 PM [facility] PICC ULTRASOUND - BEDSIDE PROCEDURE PICC ULTRASOUND - BEDSI DE PROCEDURE Routine 06/13/2019 2:41 PM EST 06/13/2019 07:41:00 PM [facility] GLUCOSE QUANTITATIVE BLOOD XCPT REAGENT STRIP POCT GLUCOSE, DOC KED Routine 06/13/2019 11:48 AM EST 06/13/2019 04:48:00 PM [facility] BLOOD COUNT COMPLETE AUTO&AUTO DIFRNTL WBC COUNT CBC AND DIFFER ENTIAL Routine 06/13/2019 9:32 AM EST 06/13/2019 02:32:00 PM [facility] PHOSPHORUS INORGANIC PHOSPHORUS LEVEL Routine 06/13/2019 9:[address] 06/13/2019 02:32:00 PM [facility] MAGNESIUM MAGNESIUM LEVEL Routine 06/13/2019 9:32 AM EST 06/13/2019 02:32:00 PM [facility] BASIC METABOLIC PANEL CALCIUM TOTAL BASIC METABOLIC PANEL Routi ne 06/13/2019 9:32 AM EST 06/13/2019 02:32:00 PM [facility] GLUCOSE QUANTITATIVE BLOOD XCPT REAGENT STRIP POCT GLUCOSE, DOC KED Routine 06/13/2019 7:19 AM EST 06/13/2019 12:19:00 PM [facility] GLUCOSE QUANTITATIVE BLOOD XCPT REAGENT STRIP POCT GLUCOSE, DOC KED Routine 06/12/2019 9:55 PM EST 06/13/2019 02:55:00 AM [facility] GLUCOSE QUANTITATIVE BLOOD XCPT REAGENT STRIP POCT GLUCOSE, DOC KED Routine 06/12/2019 4:31 PM EST 06/12/2019 09:31:00 PM [facility] RADEX SPINE LUMBOSACRAL 2/3 VIEWS XR SPINE LUMBAR 2-3 VIEWS 721 00 Routine 06/12/2019 3:41 PM EST 06/12/2019 08:41:49 PM [facility] GLUCOSE QUANTITATIVE BLOOD XCPT REAGENT STRIP POCT GLUCOSE, DOC KED Routine 06/12/2019 11:27 AM EST 06/12/2019 04:27:00 PM [facility] CUL PRSMPTV PTHGNC ORGANISM SCRN W/COLONY ESTIMJ MRSA CULTURE Routine 06/12/2019 11:25 AM EST 06/12/2019 04:25:00 PM [facility] GLUCOSE QUANTITATIVE BLOOD XCPT REAGENT STRIP POCT GLUCOSE, DOC KED Routine 06/12/2019 7:30 AM EST 06/12/2019 12:30:00 PM [facility] BLOOD COUNT COMPLETE AUTO&AUTO DIFRNTL WBC COUNT CBC AND DIFFER ENTIAL Routine 06/12/2019 3:21 AM EST 06/12/2019 08:21:00 AM [facility] PHOSPHORUS INORGANIC PHOSPHORUS LEVEL Routine 06/12/2019 3:[address] 06/12/2019 08:21:00 AM [facility] MAGNESIUM MAGNESIUM LEVEL Routine 06/12/2019 3:21 AM EST 06/12/2019 08:21:00 AM [facility] COMPREHENSIVE METABOLIC PANEL COMPREHENSIVE METABOLIC PANEL Rou joni 06/12/2019 3:21 AM EST 06/12/2019 08:21:00 AM [facility] Results ID Date Data Source [id number] 03/24/2020 07:15:41 AM EDT [facility] Name Value Range Interpretation Code Description Data Tania rce(s) Supporting Document(s) Progress Note [facility] XJZCLi0jFgXEVqCe89/SLMzzIXNjm3MsEDyeUQi1DMqlRCGvE2HaNFD3eT5cYWV7TXwYPzCmNsLcGXP6 lbm [file] 5Tr6grQB1F49CX2mhP7BV0G9xTn8FcY24Vh3q/Wy8y12mrxWufE/nn+[place]+IsC9ZTaVtWP+j88QUH9U [file] PaKkHGT3JGYaG1FhHVEkELKkKF5nPIQTZj7+YCaepBNjoYynTOADYcD1NuW5ZOqzPDGWPr7Z ID Date Data Source [id number] 03/16/2020 09:30:46 AM EDT [facility] XR SPINE LUMBAR 4-MORE VIEWS [id number] RESULTInterpreted by:Tanner Klein [facility] SPINECLINICAL STATEMENT: Low back pain.TECHNIQUE: [...] rce(s) Supporting Document(s) ID Date Data Source [id number] 09/25/2019 04:13:27 PM EDT [facility] XR SPINE LUMBAR 4-MORE VIEWS [id number] RESULTInterpreted by:Leonard Schultz MDLumbar spine 4 viewsINDICATION: [...] rce(s) Supporting Document(s) ID Date Data Source [id number] 09/24/2019 11:36:26 AM EDT [facility] Name Value Range Interpretation Code Description Data Tania rce(s) Supporting Document(s) Progress Note [facility] KHAIPk9jMjEBNrYv97/EQWmyOVEcw6RkUUmrBOr0OYyvPHZwW4JvULW0qT2wJZZ0ANcEYbDcIdSvKkS7 lbm [file] K7svKbCVb0OlT4Od3CBWWWG6JENa== ID Date Data Source [id number] 08/04/2019 03:18:58 PM [facility] XR SPINE-ENTIRE THORACIC AND LUMBAR- 2 O R 3 VIEW [id number] RESULTInterpreted by:Sage Shepherd MDEXAM: Entire thoracic and [...] rce(s) Supporting Document(s) ID Date Data Source [id number] 07/30/2019 07:47:45 AM 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 [file] TqN0E6ZnIqMyNpUE0TYe1XTmW5FEQ3pMMvQu6RBPL8DoROMtCvAD5LYCb= ID Date Data Source [id number] 07/24/2019 12:01:52 PM EST [facility] Hospital Name Value Range Interpretation Code Description Data Tania rce(s) Supporting Document(s) Progress Note [facility] JZFOMl8nKgXSQpNv11/HMRbrAKKfp5HhZBvvOSm8VYhgJXSxQ8PyNUC3hP5iINK2HRrPBcWpOuIoXGQ3 lbm [file] KRJCD9BGPt== ID Date Data Source [id number] 07/18/2019 02:50:00 PM [facility] Name Value Range Interpretation Code Description Data Tania rce(s) Supporting Document(s) Erythrocyte sedimentation rate by Westergren method 41 mm/hr 0 - 20 H [facility] SED RATE REENTER 41 [facility] ID Date Data Source [id number] 07/18/2019 02:31:00 PM EST [facility] Name Value Range Interpretation Code Description Data Tania rce(s) Supporting Document(s) COMPREHENSIVE METABOLIC PANEL [facility] COMPREHENSIVE METABOLIC PANEL Sodium [Moles/volume] in Serum or Plasma 140 mEq/L 134 - 153 [facility] Potassium [Moles/volume] in Serum or Plasma 4.8 mEq/L 3.6 - 5.0 [facility] Chloride [Moles/volume] in Serum or Plasma 103 mEq/L 98 - 107 [facility] Carbon dioxide, total [Moles/volume] in Serum or Plasma 25 MEQ/L 22 - 30 [facility] Glucose [Mass/volume] in Serum or Plasma 145 MG/DL 65 - 110 H [facility] BUN 23 MG/DL 7 - 21 H [facility] Creatinine [Mass/volume] in Serum or Plasma 0.9 MG/DL 0.7 - 1.5 [facility] BUN/CREAT 26 8 - 27 [facility] Protein [Mass/volume] in Serum or Plasma 6.7 G/DL 6.3 - 8.2 [facility] Albumin [Mass/volume] in Serum or Plasma 3.7 G/DL 3.9 - 5.0 L [facility] Globulin [Mass/volume] in Serum by calculation 3.0 GM/DL 2.4 - 3.2 [facility] A/G RATIO 1.2 0.8 - 2.0 [facility] Calcium [Mass/volume] in Serum or Plasma 9.3 MG/DL 8.4 - 10.2 [facility] Bilirubin.total [Mass/volume] in Serum or Plasma 0.7 MG/DL 0.2 - 1.3 [facility] Alkaline phosphatase [Enzymatic activity/volume] in Serum or Plasma 175 U/L 38 - 126 H [facility] Aspartate aminotransferase [Enzymatic activity/volume] in Serum or Plasma 17 U/L 5 - 40 [facility] Alanine aminotransferase [Enzymatic activity/volume] in Seru m or Plasma 16 U/L 7 - 56 [facility] Anion gap 3 in Serum or Plasma 12.0 mmol/L 8.0 - 16.0 [facility] AGE 84 yrs [facility] al NON-AA GFR >60 mL/min [facility] ital AFR AMER GFR >60 mL/min [facility] spital Male GFR In [...] >32 mL/min Normal ID Date Data Source [id number] 07/18/2019 02:22:00 PM [facility] Name Value Range Interpretation Code Description Data Tania rce(s) Supporting Document(s) CBC NO DIFF [facility] ital COMPLETE BLOOD COUNT Leukocytes [#/volume] in Blood by Automated count 7.9 10^3/uL 4.2 - 1 1.0 [facility] Erythrocytes [#/volume] in Blood by Automated count 3.22 10^6/uL 4. 50 - 6.30 L [facility] Hemoglobin [Mass/volume] in Blood 9.7 g/dL 14.0 - 16.0 L [facility] Hematocrit [Volume Fraction] of Blood by Automated count 31.3 % 4 1.0 - 51.0 L [facility] Erythrocyte mean corpuscular volume [Entitic volume] by Auto mated count 97.2 fL 80.0 - 94.0 H [facility] Erythrocyte mean corpuscular hemoglobin [Entitic mass] by Automated count 30.1 pg 27.0 - 34.0 [facility] Erythrocyte mean corpuscular hemoglobin concentration [Mass/volume] by Automated count 31.0 g/dL 31.0 - 36.0 [facility] Erythrocyte distribution width [Ratio] by Automated count 15.2 % 11.5 - 14.8 H [facility] Platelets [#/volume] in Blood by Automated count 319 10^3/uL 150 - 45 0 [facility] Platelet mean volume [Entitic volume] in Blood by Automated count 10.5 fL 7.4 - 10.4 H [facility] ID Date Data Source [id number] 07/10/2019 02:23:10 PM [facility] Hospital Name Value Range Interpretation Code Description Data Tania rce(s) Supporting Document(s) Progress Note [facility] WZJOUd2yZgYCKgVk58/PWKrjSWHqa8IbAAusZIs4YOopYYYcI5IrSDF1vH3mJHH8GSiOUeJoVzJjBKNo lbm [file] 7e4eMB++mA6sN768k45lX+764FkmP87qxjP/4H2vnP Af+NyyYkOEpWl36A+K9J0w7sLM3FBjU/HUeV8mTRFZSjvmvvyUvsoB/5a/FZS2v+DNEpe2b8kFjO+Vup cYU9fqJUlv6BybTxIo+Ii6D5Y9ZdDK+U+UQp9TqIB4buoYc73bZvOgf50xa5aU/M8egm4k2dH5N4c+38 N40PzN+4tgxHfI4Y/APt/RcJO4phKh91uZz0dIRoMo BoAdMIgYRznX/q9AH5+tzKF7XUeZAEzMjske4+a+bSW939yMvSHdMZF+Kl3Ta4b5Ss7er04G0eZDbmU9 uVDZt5dx6InL+2h12J7Pe5ag1H9rJkAnA686PqeyL+d0jTxmqol11/D/Supervisor Cd Area+e/B/bQ3h3jDtcjJ72T+B [file] F6ULFrQCEiCjJ5QxWmYC8GEp2LWnA7YNU1jFUkPc3EVqPiTqJBJrXuQM7PLNx= ID Date Data Source [id number] 07/10/2019 12:23:00 PM [facility] Name Value Range Interpretation Code Description Data Tania rce(s) Supporting Document(s) Erythrocyte sedimentation rate by Westergren method 25 mm/hr 0 - 20 H [facility] SED RATE REENTER 25 [facility] ID Date Data Source [id number] 07/10/2019 12:07:00 PM [facility] Name Value Range Interpretation Code Description Data Tania rce(s) Supporting Document(s) C reactive protein [Mass/volume] in Serum or Plasma by High sensitivity method 11.53 MG/L 1.00 - 3.00 H [facility] CDC/S HS-CRP CUT-OFF: RELATIVE RISK: <1.0 mg/L Low 1.0 - 3.0 mg/L Average >3.0 mg/L High Optimally, the average of HS-CRP results repeated two weeks apart should be used for risk assessment. ID Date Data Source [id number] 07/10/2019 12:07:00 PM [facility] Name Value Range Interpretation Code Description Data Tania rce(s) Supporting Document(s) COMPREHENSIVE METABOLIC PANEL [facility] COMPREHENSIVE METABOLIC PANEL Sodium [Moles/volume] in Serum or Plasma 138 mEq/L 134 - 153 [facility] Potassium [Moles/volume] in Serum or Plasma 4.7 mEq/L 3.6 - 5.0 [facility] Chloride [Moles/volume] in Serum or Plasma 103 mEq/L 98 - 107 [facility] Carbon dioxide, total [Moles/volume] in Serum or Plasma 26 MEQ/L 22 - 30 [facility] Glucose [Mass/volume] in Serum or Plasma 183 MG/DL 65 - 110 H [facility] BUN 17 MG/DL 7 - 21 [facility] al Creatinine [Mass/volume] in Serum or Plasma 0.9 MG/DL 0.7 - 1.5 [facility] BUN/CREAT 19 8 - 27 [facility] al Protein [Mass/volume] in Serum or Plasma 6.3 G/DL 6.3 - 8.2 [facility] Albumin [Mass/volume] in Serum or Plasma 3.3 G/DL 3.9 - 5.0 L [facility] Globulin [Mass/volume] in Serum by calculation 3.0 GM/DL 2.4 - 3.2 [facility] A/G RATIO 1.1 0.8 - 2.0 [facility] Calcium [Mass/volume] in Serum or Plasma 9.0 MG/DL 8.4 - 10.2 [facility] Bilirubin.total [Mass/volume] in Serum or Plasma 0.7 MG/DL 0.2 - 1.3 [facility] Alkaline phosphatase [Enzymatic activity/volume] in Serum or Plasma 168 U/L 38 - 126 H [facility] Aspartate aminotransferase [Enzymatic activity/volume] in Serum or Plasma 15 U/L 5 - 40 [facility] Alanine aminotransferase [Enzymatic activity/volume] in Seru m or Plasma 15 U/L 7 - 56 [facility] Anion gap 3 in Serum or Plasma 9.0 mmol/L 8.0 - 16.0 [facility] AGE 84 yrs [facility] al NON-AA GFR >60 mL/min [facility] ital AFR AMER GFR >60 mL/min [facility] spital Male GFR In [...] >32 mL/min Normal ID Date Data Source [id number] 07/10/2019 11:56:00 AM EST [facility] Name Value Range Interpretation Code Description Data Tania rce(s) Supporting Document(s) CBC W/AUTOMATED DIFF [facility] COMPLETE BLOOD COUNT Leukocytes [#/volume] in Blood by Automated count 6.4 10^3/uL 4.2 - 1 1.0 [facility] Erythrocytes [#/volume] in Blood by Automated count 2.87 10^6/uL 4. 50 - 6.30 L [facility] Hemoglobin [Mass/volume] in Blood 8.7 g/dL 14.0 - 16.0 L [facility] Hematocrit [Volume Fraction] of Blood by Automated count 27.7 % 4 1.0 - 51.0 L [facility] Erythrocyte mean corpuscular volume [Entitic volume] by Auto mated count 96.5 fL 80.0 - 94.0 H [facility] Erythrocyte mean corpuscular hemoglobin [Entitic mass] by Automated count 30.3 pg 27.0 - 34.0 [facility] Erythrocyte mean corpuscular hemoglobin concentration [Mass/volume] by Automated count 31.4 g/dL 31.0 - 36.0 [facility] Erythrocyte distribution width [Ratio] by Automated count 15.2 % 11.5 - 14.8 H [facility] Platelets [#/volume] in Blood by Automated count 290 10^3/uL 150 - 45 0 [facility] Platelet mean volume [Entitic volume] in Blood by Automated count 10.0 fL 7.4 - 10.4 [facility] Neutrophils/100 leukocytes in Blood by Automated count 73.5 % 37. 0 - 80.0 [facility] Lymphocytes/100 leukocytes in Blood by Manual count 14.8 % 25.0 - 40.0 L [facility] Monocytes/100 leukocytes in Blood by Automated count 5.6 % 3.0 - 8.0 [facility] Eosinophils/100 leukocytes in Blood by Automated count 5.0 % 0.0 - 7.0 [facility] Basophils/100 leukocytes in Blood by Automated count 0.8 % 0.0 - 2.0 [facility] %IG 0.3 % 0.0 - 0.0 H [facility] al %NRBC 0.0 % 0.0 - 0.0 [facility] al Neutrophils [#/volume] in Blood by Automated count 4.71 10^3/uL 2.00 - 6.90 [facility] Lymphocytes [#/volume] in Blood by Automated count 0.95 10^3/uL 0.60 - 3.40 [facility] Monocytes [#/volume] in Blood by Automated count 0.36 10^3/uL 0.00 - 0.90 [facility] Eosinophils [#/volume] in Blood by Automated count 0.32 10^3/uL 0.00 - 0.70 [facility] Basophils [#/volume] in Blood by Automated count 0.05 10^3/uL 0.00 - 0.20 [facility] #IG 0.02 10^3/uL 0.00 - 0.10 [facility]spital #NRBC 0.00 10^3/uL 0.00 - 0.00 [facility] MANUAL DIFF NOT INDICATED [facility] RBC MORPH NOT INDICATED [facility] spital ID Date Data Source [id number] 07/03/2019 05:15:00 PM EST [facility] Name Value Range Interpretation Code Description Data Tnaia rce(s) Supporting Document(s) C reactive protein [Mass/volume] in Serum or Plasma by High sensitivity method 14.39 MG/L 1.00 - 3.00 H [facility] CDC/AHS HS-CRP CUT-OFF: RELATIVE RISK: <1.0 mg/L Low 1.0 - 3.0 mg/L Average >3.0 mg/L High Optimally, the average of HS-CRP results repeated two weeks apart should be used for risk assessment. ID Date Data Source [id number] 07/03/2019 05:15:00 PM EST [facility] Name Value Range Interpretation Code Description Data Tania rce(s) Supporting Document(s) COMPREHENSIVE METABOLIC PANEL [facility] COMPREHENSIVE METABOLIC PANEL Sodium [Moles/volume] in Serum or Plasma 137 mEq/L 134 - 153 [facility] Potassium [Moles/volume] in Serum or Plasma 4.9 mEq/L 3.6 - 5.0 [facility] Chloride [Moles/volume] in Serum or Plasma 100 mEq/L 98 - 107 [facility] Carbon dioxide, total [Moles/volume] in Serum or Plasma 23 MEQ/L 22 - 30 [facility] Glucose [Mass/volume] in Serum or Plasma 149 MG/DL 65 - 110 H [facility] BUN 18 MG/DL 7 - 21 [facility] Creatinine [Mass/volume] in Serum or Plasma 0.9 MG/DL 0.7 - 1.5 [facility] BUN/CREAT 20 8 - 27 [facility] Protein [Mass/volume] in Serum or Plasma 6.3 G/DL 6.3 - 8.2 [facility] Albumin [Mass/volume] in Serum or Plasma 3.2 G/DL 3.9 - 5.0 L [facility] Globulin [Mass/volume] in Serum by calculation 3.1 GM/DL 2.4 - 3.2 [facility] A/G RATIO 1.0 0.8 - 2.0 [facility] Calcium [Mass/volume] in Serum or Plasma 8.8 MG/DL 8.4 - 10.2 [facility] Bilirubin.total [Mass/volume] in Serum or Plasma 0.7 MG/DL 0.2 - 1.3 [facility] Alkaline phosphatase [Enzymatic activity/volume] in Serum or Plasma 161 U/L 38 - 126 H [facility] Aspartate aminotransferase [Enzymatic activity/volume] in Serum or Plasma 18 U/L 5 - 40 [facility] Alanine aminotransferase [Enzymatic activity/volume] in Seru m or Plasma 15 U/L 7 - 56 [facility] Anion gap 3 in Serum or Plasma 14.0 mmol/L 8.0 - 16.0 [facility] AGE 84 yrs [facility] NON-AA GFR >60 mL/min [facility] AFR AMER GFR >60 mL/min [facility] spital Male GFR In [...] >32 mL/min Normal ID Date Data Source [id number] 07/03/2019 05:04:00 PM [facility] Name Value Range Interpretation Code Description Data Tania rce(s) Supporting Document(s) Erythrocyte sedimentation rate by Westergren method 60 mm/hr 0 - 20 H [facility] SED RATE REENTER 60 [facility] ID Date Data Source [id number] 07/03/2019 04:46:00 PM [facility] Name Value Range Interpretation Code Description Data Tania rce(s) Supporting Document(s) CBC W/AUTOMATED DIFF [facility] COMPLETE BLOOD COUNT Leukocytes [#/volume] in Blood by Automated count 8.7 10^3/uL 4.2 - 1 1.0 [facility] Erythrocytes [#/volume] in Blood by Automated count 2.62 10^6/uL 4. 50 - 6.30 L [facility] Hemoglobin [Mass/volume] in Blood 8.0 g/dL 14.0 - 16.0 L [facility] Hematocrit [Volume Fraction] of Blood by Automated count 24.9 % 4 1.0 - 51.0 L [facility] Erythrocyte mean corpuscular volume [Entitic volume] by Auto mated count 95.0 fL 80.0 - 94.0 H [facility] Erythrocyte mean corpuscular hemoglobin [Entitic mass] by Automated count 30.5 pg 27.0 - 34.0 [facility] Erythrocyte mean corpuscular hemoglobin concentration [Mass/volume] by Automated count 32.1 g/dL 31.0 - 36.0 [facility] Erythrocyte distribution width [Ratio] by Automated count 15.1 % 11.5 - 14.8 H [facility] Platelets [#/volume] in Blood by Automated count 310 10^3/uL 150 - 45 0 [facility] Platelet mean volume [Entitic volume] in Blood by Automated count 10.0 fL 7.4 - 10.4 [facility] Neutrophils/100 leukocytes in Blood by Automated count 70.7 % 37. 0 - 80.0 [facility] Lymphocytes/100 leukocytes in Blood by Manual count 18.2 % 25.0 - 40.0 L [facility] Monocytes/100 leukocytes in Blood by Automated count 6.2 % 3.0 - 8.0 [facility] Eosinophils/100 leukocytes in Blood by Automated count 4.0 % 0.0 - 7.0 [facility] Basophils/100 leukocytes in Blood by Automated count 0.7 % 0.0 - 2.0 [facility] %IG 0.2 % 0.0 [facility] - 0.0 [facility] Neutrophils [#/volume] in Blood by Automated count 6.16 10^3/uL 2.00 - 6.90 [facility] Lymphocytes [#/volume] in Blood by Automated count 1.59 10^3/uL 0.60 - 3.40 [facility] Monocytes [#/volume] in Blood by Automated count 0.54 10^3/uL 0.00 - 0.90 [facility] Eosinophils [#/volume] in Blood by Automated count 0.35 10^3/uL 0.00 - 0.70 [facility] Basophils [#/volume] in Blood by Automated count 0.06 10^3/uL 0.00 - 0.20 [facility] #IG 0.02 10^3/uL 0.00 - 0.10 [facility] #NRBC 0.00 10^3/uL 0.00 - 0.00 [facility] MANUAL DIFF NOT INDICATED [facility] RBC MORPH NOT INDICATED [facility] spital ID Date Data Source [id number] 06/29/2019 07:35:00 PM EST [facility] Name Value Range Interpretation Code Description Data Tania rce(s) Supporting Document(s) COMPREHENSIVE METABOLIC PANEL [facility] COMPREHENSIVE METABOLIC PANEL Sodium [Moles/volume] in Serum or Plasma 136 mEq/L 134 - 153 [facility] Potassium [Moles/volume] in Serum or Plasma 4.8 mEq/L 3.6 - 5.0 [facility] Chloride [Moles/volume] in Serum or Plasma 99 mEq/L 98 - 107 [facility] Carbon dioxide, total [Moles/volume] in Serum or Plasma 26 MEQ/L 22 - 30 [facility] Glucose [Mass/volume] in Serum or Plasma 126 MG/DL 65 - 110 H [facility] BUN 12 MG/DL 7 - 21 [facility] al Creatinine [Mass/volume] in Serum or Plasma 0.9 MG/DL 0.7 - 1.5 [facility] BUN/CREAT 13 8 - 27 [facility] Protein [Mass/volume] in Serum or Plasma 6.7 G/DL 6.3 - 8.2 [facility] Albumin [Mass/volume] in Serum or Plasma 3.2 G/DL 3.9 - 5.0 L [facility] Globulin [Mass/volume] in Serum by calculation 3.5 GM/DL 2.4 - 3.2 H [facility] A/G RATIO 0.9 0.8 - 2.0 [facility] Calcium [Mass/volume] in Serum or Plasma 9.0 MG/DL 8.4 - 10.2 [facility] Bilirubin.total [Mass/volume] in Serum or Plasma <0.7 MG/DL 0.2 - 1.3 [facility] Alkaline phosphatase [Enzymatic activity/volume] in Serum or Plasma 159 U/L 38 - 126 H [facility] Aspartate aminotransferase [Enzymatic activity/volume] in Serum or Plasma 20 U/L 5 - 40 [facility] Alanine aminotransferase [Enzymatic activity/volume] in Seru m or Plasma 17 U/L 7 - 56 [facility] Anion gap 3 in Serum or Plasma 11.0 mmol/L 8.0 - 16.0 [facility] AGE 84 yrs [facility] NON-AA GFR >60 mL/min [facility] ital AFR AMER GFR >60 mL/min [facility] Ho spital Male GFR In [...] >32 mL/min Normal ID Date Data Source [id number] 06/26/2019 05:25:00 PM [facility] Name Value Range Interpretation Code Description Data Tania rce(s) Supporting Document(s) C reactive protein [Mass/volume] in Serum or Plasma by High sensitivity method 67.29 MG/L 1.00 - 3.00 H [facility] CDC/[facility] HS-CRP CUT-OFF: RELATIVE RISK: <1.0 mg/L Low 1.0 - 3.0 mg/L Average >3.0 mg/L High Optimally, the average of HS-CRP results repeated two weeks apart should be used for risk assessment. ID Date Data Source [id number] 06/26/2019 05:15:00 PM [facility] Name Value Range Interpretation Code Description Data Tania rce(s) Supporting Document(s) Erythrocyte sedimentation rate by Westergren method 50 mm/hr 0 - 20 H [facility] SED RATE REENTER 50 [facility] ID Date Data Source [id number] 06/26/2019 04:17:00 PM [facility] Name Value Range Interpretation Code Description Data Tania rce(s) Supporting Document(s) COMPREHENSIVE METABOLIC PANEL [facility] COMPREHENSIVE METABOLIC PANEL Sodium [Moles/volume] in Serum or Plasma 139 mEq/L 134 - 153 [facility] Potassium [Moles/volume] in Serum or Plasma 4.3 mEq/L 3.6 - 5.0 [facility] Chloride [Moles/volume] in Serum or Plasma 99 mEq/L 98 - 107 [facility] Carbon dioxide, total [Moles/volume] in Serum or Plasma 27 MEQ/L 22 - 30 [facility] Glucose [Mass/volume] in Serum or Plasma 264 MG/DL 65 - 110 H [facility] BUN 11 MG/DL 7 - 21 [facility] Creatinine [Mass/volume] in Serum or Plasma 1.0 MG/DL 0.7 - 1.5 [facility] BUN/CREAT 11 8 - 27 [facility] Protein [Mass/volume] in Serum or Plasma 6.3 G/DL 6.3 - 8.2 [facility] Albumin [Mass/volume] in Serum or Plasma 3.2 G/DL 3.9 - 5.0 L [facility] Globulin [Mass/volume] in Serum by calculation 3.1 GM/DL 2.4 - 3.2 [facility] A/G RATIO 1.0 0.8 - 2.0 [facility] Calcium [Mass/volume] in Serum or Plasma 8.7 MG/DL 8.4 - 10.2 [facility] Bilirubin.total [Mass/volume] in Serum or Plasma <0.7 MG/DL 0.2 - 1.3 [facility] Alkaline phosphatase [Enzymatic activity/volume] in Serum or Plasma 153 U/L 38 - 126 H [facility] Aspartate aminotransferase [Enzymatic activity/volume] in Serum or Plasma 24 U/L 5 - 40 [facility] Alanine aminotransferase [Enzymatic activity/volume] in Seru m or Plasma 18 U/L 7 - 56 [facility] Anion gap 3 in Serum or Plasma 13.0 mmol/L 8.0 - 16.0 [facility] AGE 84 yrs [facility] al NON-AA GFR >60 mL/min [facility] ital AFR AMER GFR >60 mL/min [facility] Ho spital Male GFR In [...] >32 mL/min Normal ID Date Data Source [id number] 06/26/2019 03:52:00 PM EST [facility] Name Value Range Interpretation Code Description Data Tania rce(s) Supporting Document(s) CBC W/AUTOMATED DIFF [facility] COMPLETE BLOOD COUNT Leukocytes [#/volume] in Blood by Automated count 9.8 10^3/uL 4.2 - 1 1.0 [facility] Erythrocytes [#/volume] in Blood by Automated count 2.55 10^6/uL 4. 50 - 6.30 L [facility] Hemoglobin [Mass/volume] in Blood 7.8 g/dL 14.0 - 16.0 L [facility] Hematocrit [Volume Fraction] of Blood by Automated count 24.2 % 4 1.0 - 51.0 L [facility] Erythrocyte mean corpuscular volume [Entitic volume] by Auto mated count 94.9 fL 80.0 - 94.0 H [facility] Erythrocyte mean corpuscular hemoglobin [Entitic mass] by Automated count 30.6 pg 27.0 - 34.0 [facility] Erythrocyte mean corpuscular hemoglobin concentration [Mass/volume] by Automated count 32.2 g/dL 31.0 - 36.0 [facility] Erythrocyte distribution width [Ratio] by Automated count 15.4 % 11.5 - 14.8 H [facility] Platelets [#/volume] in Blood by Automated count 434 10^3/uL 150 - 45 0 [facility] Platelet mean volume [Entitic volume] in Blood by Automated count 9.6 fL 7.4 - 10.4 [facility] Neutrophils/100 leukocytes in Blood by Automated count 79.3 % 37. 0 - 80.0 [facility] Lymphocytes/100 leukocytes in Blood by Manual count 13.3 % 25.0 - 40.0 L [facility] Monocytes/100 leukocytes in Blood by Automated count 4.8 % 3.0 - 8.0 [facility] Eosinophils/100 leukocytes in Blood by Automated count 1.9 % 0.0 - 7.0 [facility] Basophils/100 leukocytes in Blood by Automated count 0.4 % 0.0 - 2.0 [facility] %IG 0.3 % 0.0 - 0.0 H [facility] %NRBC 0.0 % [facility].0 [facility] [#/volume] in Blood by Automated count 7.79 10^3/uL 2.00 - 6.90 H [facility] Lymphocytes [#/volume] in Blood by Automated count 1.31 10^3/uL 0.60 - 3.40 [facility] Monocytes [#/volume] in Blood by Automated count 0.47 10^3/uL 0.00 - 0.90 [facility] Eosinophils [#/volume] in Blood by Automated count 0.19 10^3/uL 0.00 - 0.70 [facility] Basophils [#/volume] in Blood by Automated count 0.04 10^3/uL 0.00 - 0.20 [facility] #IG 0.03 10^3/uL 0.00 - 0.10 [facility]spital #NRBC 0.00 10^3/uL 0.00 - 0.00 [facility] MANUAL DIFF NOT INDICATED [facility] RBC MORPH NOT INDICATED [facility] Ho spital ID Date Data Source [id number] 06/26/2019 08:43:26 AM EST [facility] Name Value Range Interpretation Code Description Data Tania rce(s) Supporting Document(s) Progress Note [facility] UFSLNj2ePkYUVaSj37/YTFtpMLGuq3GtYOvyLBg3UEjtANOoY2PhBKP2hQ3rREA6SCdUJiXgBSxbHvPl lbm XbSipGVrHeDTIhZhrXJrXdQOmlTsexaMCeJJ1ZyMX6WRZlO16pGWYxACCeR6LiRQHtZOt+Ca6BNDPceQ CtDB1PJxpB5V0Rk2xPYL2BlN/KRUVSJ2xB8tmWFKD13I06J1n4bC0mM59DsKN8NbvCEEyZ/t5cNvqCQP +Oi2PZDMe1W3DWs86B3/D2ABUMwXs//bUhFbZ5nmz4 f/9nklkzPDd//qNMHNoakxULw8lUjfC1mNoAK3q/QQh6J69ayUKhCGH8Ao3Y90hyEn7W3ohsPlYt4VG7 80kPq9rllf5fC16EmVGryc2wP+DJPxuSxt1Fm+LzSS64QORllLrgjBQSUnoE9cXS4lXjKMzvglp3yXUt ndilNHA6e3yx0u9Dm8MxbR51gRX8KYROB9uk3QCJ68 ia6dLccqMT+14c+Parker/u9tTmSNB/t2RVnx9DcKiT0wkXnfy05RWiggc8FmR98InqVS0H8rKYZGb2A+zT [file] ID Date Data Source [id number] 06/22/2019 07:01:17 AM EST [facility] Name Value Range Interpretation Code Description Data Tania rce(s) Supporting Document(s) Operative Note [facility] TNKLKc5sOwQHJjQk90/EEQrvTZHok0NuVUigNEg4NLiwJVVdQ9VzJLE3wX1zUAK6NMfDQlNhAJzwZsR5 lbm [file] KiiuX3qfLiXPnhWcL8DV0LYKEUD1WYZa== ID Date Data Source [id number] 06/19/2019 05:39:00 PM [facility] Name Value Range Interpretation Code Description Data Tania rce(s) Supporting Document(s) Erythrocyte sedimentation rate by Westergren method 50 mm/hr 0 - 20 H [facility] SED RATE REENTER 50 [facility] ID Date Data Source [id number] 06/19/2019 04:56:00 PM [facility] Name Value Range Interpretation Code Description Data Tania rce(s) Supporting Document(s) C reactive protein [Mass/volume] in Serum or Plasma by High sensitivity method 135.58 MG/L 1.00 - 3.00 H [facility] CDC/S HS-CRP CUT-OFF: RELATIVE RISK: <1.0 mg/L Low 1.0 - 3.0 mg/L Average >3.0 mg/L High Optimally, the average of HS-CRP results repeated two weeks apart should be used for risk assessment. ID Date Data Source [id number] 06/19/2019 04:56:00 PM [facility] Name Value Range Interpretation Code Description Data Tania rce(s) Supporting Document(s) CBC W/AUTOMATED DIFF [facility] COMPLETE BLOOD COUNT Leukocytes [#/volume] in Blood by Automated count 11.3 10^3/uL 4.2 - 11.0 H [facility] Erythrocytes [#/volume] in Blood by Automated count 2.69 10^6/uL 4. 50 - 6.30 L [facility] Hemoglobin [Mass/volume] in Blood 8.0 g/dL 14.0 - 16.0 L [facility] Hematocrit [Volume Fraction] of Blood by Automated count 25.1 % 4 1.0 - 51.0 L [facility] Erythrocyte mean corpuscular volume [Entitic volume] by Auto mated count 93.3 fL 80.0 - 94.0 [facility] Erythrocyte mean corpuscular hemoglobin [Entitic mass] by Automated count 29.7 pg 27.0 - 34.0 [facility] Erythrocyte mean corpuscular hemoglobin concentration [Mass/volume] by Automated count 31.9 g/dL 31.0 - 36.0 [facility] Erythrocyte distribution width [Ratio] by Automated count 15.0 % 11.5 - 14.8 H [facility] Platelets [#/volume] in Blood by Automated count 439 10^3/uL 150 - 45 0 [facility] Platelet mean volume [Entitic volume] in Blood by Automated count 9.5 fL 7.4 - 10.4 [facility] Neutrophils/100 leukocytes in Blood by Automated count 79.7 % 37. 0 - 80.0 [facility] Lymphocytes/100 leukocytes in Blood by Manual count 13.6 % 25.0 - 40.0 L [facility] Monocytes/100 leukocytes in Blood by Automated count 5.7 % 3.0 - 8.0 [facility] Eosinophils/100 leukocytes in Blood by Automated count 0.4 % 0.0 - 7.0 [facility] Basophils/100 leukocytes in Blood by Automated count 0.2 % 0.0 - 2.0 [facility] %IG 0.4 % 0.0 - 0.0 H [facility] %NRBC 0.0 % 0.0 - 0.0 [facility] al Neutrophils [#/volume] in Blood by Automated count 9.02 10^3/uL 2.00 - 6.90 H [facility] Lymphocytes [#/volume] in Blood by Automated count 1.54 10^3/uL 0.60 - 3.40 [facility] Monocytes [#/volume] in Blood by Automated count 0.64 10^3/uL 0.00 - 0.90 [facility] Eosinophils [#/volume] in Blood by Automated count 0.05 10^3/uL 0.00 - 0.70 [facility] Basophils [#/volume] in Blood by Automated count 0.02 10^3/uL 0.00 - 0.20 [facility] #IG 0.04 10^3/uL 0.00 - 0.10 [facility] H ospital #NRBC 0.00 10^3/uL 0.00 - 0.00 [facility] MANUAL DIFF NOT INDICATED [facility] RBC MORPH NOT INDICATED [facility] Ho spital ID Date Data Source [id number] 06/19/2019 04:40:00 PM EST [facility] Name Value Range Interpretation Code Description Data Tania rce(s) Supporting Document(s) COMPREHENSIVE METABOLIC PANEL [facility] COMPREHENSIVE METABOLIC PANEL Sodium [Moles/volume] in Serum or Plasma 133 mEq/L 134 - 153 L [facility] Potassium [Moles/volume] in Serum or Plasma 5.0 mEq/L 3.6 - 5.0 [facility] Chloride [Moles/volume] in Serum or Plasma 99 mEq/L 98 - 107 [facility] Carbon dioxide, total [Moles/volume] in Serum or Plasma 20 MEQ/L 22 - 30 L [facility] Glucose [Mass/volume] in Serum or Plasma 271 MG/DL 65 - 110 H [facility] BUN 27 MG/DL 7 - 21 H [facility] Creatinine [Mass/volume] in Serum or Plasma 1.2 MG/DL 0.7 - 1.5 [facility] BUN/CREAT 23 8 - 27 [facility] Protein [Mass/volume] in Serum or Plasma 5.7 G/DL 6.3 - 8.2 L [facility] Albumin [Mass/volume] in Serum or Plasma 2.9 G/DL 3.9 - 5.0 L [facility] Globulin [Mass/volume] in Serum by calculation 2.8 GM/DL 2.4 - 3.2 [facility] A/G RATIO 1.0 0.8 - 2.0 [facility] Calcium [Mass/volume] in Serum or Plasma 8.6 MG/DL 8.4 - 10.2 [facility] Bilirubin.total [Mass/volume] in Serum or Plasma <0.7 MG/DL 0.2 - 1.3 [facility] Alkaline phosphatase [Enzymatic activity/volume] in Serum or Plasma 119 U/L 38 - 126 [facility] Aspartate aminotransferase [Enzymatic activity/volume] in Serum or Plasma 19 U/L 5 - 40 [facility] Alanine aminotransferase [Enzymatic activity/volume] in Seru m or Plasma 14 U/L 7 - 56 [facility] Anion gap 3 in Serum or Plasma 14.0 mmol/L 8.0 - 16.0 [facility] AGE 84 yrs [facility] NON-AA GFR >60 mL/min [facility] AFR AMER GFR >60 mL/min [facility] Male GFR In [...] >32 mL/min Normal ID Date Data Source [id number] 06/19/2019 04:38:00 PM [facility] Name Value Range Interpretation Code Description Data Tania rce(s) Supporting Document(s) Vancomycin [Mass/volume] in Serum or Plasma --trough 17.3 ug/mL [facility] TROUG H First trough is drawn 30 minutes prior to fourth dose. If patient is not hemodynamically stable, a trough is obtained as deemed medically necessary. If patient is hemodynamically stable, a trough should be drawn once a week. The trough is drawn 30 minutes prior to the next dose. Mild Infections Trough 10-15 mg/L Severe Infections Trough 15-20 mg/L BASIN [employer]ER Infections Trough 20-25 mg/L *Severe Infections - Endocarditis, Osteomyelitis, Hospital Acquired Pneumonia, Sepsis ID Date Data Source [id number] 06/18/2019 12:41:02 PM [facility] Name Value Range Interpretation Code Description Data Tania rce(s) Supporting Document(s) History and Physical [facility] BKWAZj7uHuGKQwEn74/WZAipUHYhl1GuSDxqJKy6QTkrJUFpP0ZgOPN2iQ4lBQI0TXjHNsPvSOmhRuMa [facility] [file] ICAgICAgICAgICAgICAgICAgICAgICAgICAgICAgICAgICAgICAgICAgICAgICAgICAgICAgICAgICAg ICAgICAgICAgICANCiAgICAgICAgICAgICAgICAgIC AgICAgICAgICAgICAgICAgICAgICAgICAgICAgICAgICAgICAgICAgICAgICAgICAgICAgICAgICAgIC AgICAgICAgICAgICAgICAgICAgICANCiAgICAgICAgICAgICAgICAgICAgICAgICAgICAgICAgICAgIC AgICAgICAgICAgICAgICAgICAgICAgICAgICAgICAg ICAgICAgICAgICAgICAgICAgICAgICAgICAgICAgICANCiAgICAgICAgICAgICAgICAgICAgICAgICAg ICAgICAgICAgICAgICAgICAgICAgICAgICAgICAgICAgICAgICAgICAgICAgICAgICAgICAgICAgICAg ICAgICAgICAgICAgICANCiAgICAgICAgICAgICAgIC AgICAgICAgICAgICAgICAgICAgICAgICAgICAgICAgICAgICAgICAgICAgICAgICAgICAgICAgICAgIC AgICAgICAgICAgICAgICAgICAgICAgICANCiAgICAgICAgICAgICAgICAgICAgICAgICAgICAgICAgIC AgICAgICAgICAgICAgICAgICAgICAgICAgICAgICAg ICAgICAgICAgICAgICAgICAgICAgICAgICAgICAgICAgICANCiAgICAgICAgICAgICAgICAgICAgICAg ICAgICAgICAgICAgICAgICAgICAgICAgICAgICAgICAgICAgICAgICAgICAgICAgICAgICAgICAgICAg ICAgICAgICAgICAgICAgICANCiAgICAgICAgICAgIC AgICAgICAgICAgICAgICAgICAgICAgICAgICAgICAgICAgICAgICAgICAgICAgICAgICAgICAgICAgIC AgICAgICAgICAgICAgICAgICAgICAgICAgICANCiAgICAgICAgICAgICAgICAgICAgICAgICAgICAgIC AgICAgICAgICAgICAgICAgICAgICAgICAgICAgICAg ICAgICAgICAgICAgICAgICAgICAgICAgICAgICAgICAgICAgICANCiAgICAgICAgICAgICAgICAgICAg ICAgICAgICAgICAgICAgICAgICAgICAgICAgICAgICAgICAgICAgICAgICAgICAgICAgICAgICAgICAg ICAgICAgICAgICAgICAgICAgICANCjw/lJQtI4rphX KzocW7B5suCu9FPm3XYW4gr0SiVJIfLLgxclVgEygOZaMgIGAkYpeSKdu0LYcbBC4RsSMkD6SiE2LpRK jpQJ9WGULsOFPedSMiMBQdAQVyCqN6QYGcOGzbRE8RtTInGFewKDWcZMIsStFfQEMtVOGnRAYvOKYfMH VJNN6ITrNhP0OhwT41LFKJVh3+DQplbmRvYmoNCjMx VKGyu7OzGTs2AQ0UDPZaUhlzx7CbReIhOVILXEvwDO8CXCE0FEQwBVVqQj8ZOGAmJ088gyRpCL1OTu9N YnYaYD2ynx3ESfWbQPUzUlsXCjj6GHprYQ3BkRPmWSqBKtWvScksR5JrLADGoBY6JQIQEoPLFDC8ADVj TqH7FeCcSNtvWKC2BEHuMW0kRUmzIO8JEMP0MNczLG DoOMXpA8xKBxKjPHByKkLljAgrMN3UJlGbA7QiwmAkjUDfYMTcSGQNCr4+DQplbmRvYmoNCjMzIDAgb2 MwBGa9DS0EIDMjJHymGG1OCWMnmJ6lYDbcIX3COhTwEYVmEUWLWiWfF69wkAOwVRv7B6WfDdBuXHWgYp lsZXMgPDwvTmFtZXMgWyBdDQogID4+ID4+ICgiAP9B NQwyuoQyOSFvQm3JGVFfPEArHD4sKWCeLHQoC2X3tOasXGYLXnSbE4jfdbdeVL8zCWSbL357jAgeloZu YNMbNNPfEq5JYMNiCYX8KKGirLEoZcFkOBPGCDdzIJ6ThMDbIQM7zF4fJEnpTTSpFFAtU5uJOiJlzGtc DG62oWhrdtSahWCpUHv+Wg7CBW0wu2TaMKx7vfCpTM upKLJ8YCcgCCDlYGErHFWiAZP6PLB6RAAPGrEuAPTsFTGpTRlrOZTpZNImpx2GGEVjCYHyKCZ5TVSsNK GaKCRuIXpsUBCxPKKoQSh1UUVuWHYeBZ7ZDsOaYSTzAGFbCOymEGSbIMHigg0BJMFhAKTeYxM6KtYlXT HbMMVcWFmfYHZoJGFkHNukEDGdOMYiZT2ZIjSwZJLs WTfnCNAhQILdQPTnzw9JNSAvAJMfFjW6BOZaNVBeYFYsXApkCTWwIYVdJAnvZBMoROKgUK9HMvLlGXYi WHK9JgOgRDSwDHLunf8NEITlTNBfXiE9SFHfQVEmJQCaTDlhHZHiKDCeRRtoWWEqPGJhFN5ZLkUqKGMv JJE6MGPnMGPyZSChqy6DJMOdISAgKnp3IqEmBCAyDY JdSOjcWTPyMHJkCWAkBKSfXRJxON6JOoGhTLKnXYK3GUzpZYQsKXGbgt0YNZXfFCZtOTQ0BBRhYRVpJG NlMAicKSGmREF5Iof7UCSbJPIhIK9CExEkAWPsTHZyQmnmSNDaSHChro0ELGUwSCJzFwTeGjWfAFJpKD NnIQclPZEuMIE9DmE3MLAdXGMtWA8OQyGlDDBpZelt WLGcKGKoDGCruv0HXGGdCFFfTOGfQvEfVWUzMJOdKIjiAZVfRIG0ABXzVMNgQGYkZL4FKeIlCBJkRgy1 RhFzSYWtRFQbaf6VEIRpHSUwSJqnNoGsJCRhHSTfJJbmDZWmKYA2IGXzUCUjHBSbNT3QEvNyRNLsBhBv SUxxVDRyKEApqg8RKYUnZBNdEFSiNmGeYVDnTKWrWB edZEDpQBRcGjM8VDSnLRWoDI1HGtDfISUzMlOcAZOsJXKjSTOqdc8PJVCbZYVnToI9UxJzHCFtRSRcYM bwWEGxKNKjKuSkFIWnZZVgNU7ZHfCgIXpmMCBVMmp0ETqbR0f0PXGzZM2OJ4Gci4VvRdMqAVEPZRouVE 8uieOzTQStBx6UM1eDRjk9NPkfWnQvRHH7D0HgG9W6 GvhqGNXuOcNlCLX1WaBoZu1fQEa3BTG9GVT0SGYzH8AiFmuhWLT1Q7RyGzZ8QgKzADZeRcUtAA5OFh6M RtU9VFJ0nQKcZj7AYuX8YcfUKeFjQR8OVNp= ID Date Data Source [id number] 06/15/2019 02:59:13 PM EST [facility] Name Value Range Interpretation Code Description Data Tania rce(s) Supporting Document(s) Discharge Summary [facility] EBCPIe4xAiBAEpBh75/IZDcuIZOug0EbSAobGAd9IGyvSKGeY1VxZTK7eY0jQTN0YKkLBwPwOIlfTxF1 lbm BlYedWGzGeARSpGloCQuIhMVycNpccqCSoRX8InEP7THSiG89hZLYeDKCvG6XzEZF9NRP+Hl4WSGJumC UzVS9KKhqL0T4vs9fHFT9a5D+waNEgAWKZy+Cr3GoqmeLOlz4pUsCAjRlGvd38fjARxt6eN0TpHh1VXj IpoELLWGRmNSqMiyI662pJDAFI/f8hEmL0hnQX4A/1 MUvxQI8QK/3C3Kimi7hx/shuIg+4jnbC/OUxh2M1U5gaHbM/yKSFVYdyLLhwpT93eKe5eQqrRX72OUu/ E1zEHs1r1PSDDJ+RIhaWDVpM5bcXFqeBQMierP2XvoDLifDo8MEcgBcSe/qitKjofQ6dj5HAFp6wpMk8 siwP0y5OIAeZ4gUgQyHkBmOlTtDG3prrVhb2KBlcBz FMLWjWDc7vwVsLu1tiWRFQTAyW8Ml4xGhVidAH+032qX3p2iAbAfgfd0dsg7FTFsaxFC4WgO4Ouki0+B ZuskoX9R38DywyJZqkoOXq7aO/Kw4Diyf9sCtjsJ1rjcQS1CN8msXub+yscb7Wb9PeItILYLH++7NMzS BIheeUjpEzdjyaxTZNLaPhqscZcXvTjdKJVirdnMXf [file] AgICAgICAgICAgICAgICAgICAgICAgICAgICAgICAgICAgICAgICAgICAgICAgICAgICAgICAgICAgIC AgICAgICANCiAgICAgICAgICAgICAgICAgICAgICAg ICAgICAgICAgICAgICAgICAgICAgICAgICAgICAgICAgICAgICAgICAgICAgICAgICAgICAgICAgICAg ICAgICAgICAgICAgICAgICANCiAgICAgICAgICAgICAgICAgICAgICAgICAgICAgICAgICAgICAgICAg ICAgICAgICAgICAgICAgICAgICAgICAgICAgICAgIC AgICAgICAgICAgICAgICAgICAgICAgICAgICANCiAgICAgICAgICAgICAgICAgICAgICAgICAgICAgIC AgICAgICAgICAgICAgICAgICAgICAgICAgICAgICAgICAgICAgICAgICAgICAgICAgICAgICAgICAgIC AgICAgICAgICANCiAgICAgICAgICAgICAgICAgICAg ICAgICAgICAgICAgICAgICAgICAgICAgICAgICAgICAgICAgICAgICAgICAgICAgICAgICAgICAgICAg ICAgICAgICAgICAgICAgICAgICANCiAgICAgICAgICAgICAgICAgICAgICAgICAgICAgICAgICAgICAg ICAgICAgICAgICAgICAgICAgICAgICAgICAgICAgIC AgICAgICAgICAgICAgICAgICAgICAgICAgICAgICANCiAgICAgICAgICAgICAgICAgICAgICAgICAgIC AgICAgICAgICAgICAgICAgICAgICAgICAgICAgICAgICAgICAgICAgICAgICAgICAgICAgICAgICAgIC AgICAgICAgICAgICANCiAgICAgICAgICAgICAgICAg ICAgICAgICAgICAgICAgICAgICAgICAgICAgICAgICAgICAgICAgICAgICAgICAgICAgICAgICAgICAg ICAgICAgICAgICAgICAgICAgICAgICANCiAgICAgICAgICAgICAgICAgICAgICAgICAgICAgICAgICAg ICAgICAgICAgICAgICAgICAgICAgICAgICAgICAgIC AgICAgICAgICAgICAgICAgICAgICAgICAgICAgICAgICANCiAgICAgICAgICAgICAgICAgICAgICAgIC AgICAgICAgICAgICAgICAgICAgICAgICAgICAgICAgICAgICAgICAgICAgICAgICAgICAgICAgICAgIC AgICAgICAgICAgICAgICANCjw/oNUyC8oxsSTsqsY9 C9ayBi2YKd6EIW5lg3XkNLGwGRtludPqVsvTLtMeSXMoNmaFEzm1OUwtMY0HyPSqD8RjW4YlUGyoJF9P FCPxJWPkmCWtFYFuVFGtJiS9FZUbMKmmAY2XuHDbPDwtGZRzMEAtFnEiRSTpPVPgCPEhMBJyABYGFFJv BOGvEyIsVHzeSP5Uq1QnuGH7XLa+Rj9IJU0qk6HkIS reTZNzCT5whj2XNQjOHiPgM9MypcV4GUQ9CMMlNl3PFNJtDQRhkHQrVpRiMPUQPzVzI9QnkR07SXIFZp 4+DTpongPlVwcODxG3LDMsn4LuDAb7TT4JGDGjSXx0tFRiETiwU3ejvpcvZIJ8wF1akrqtZimwXfDnXU IlH3MyqJHmGHDCQHSndWQuEq1kBM1fAPI3MALzSiB1 JNRRQT9MZGUwNGHetIBmFLDbPOZYCW0MMNflKMR7VXUcsvRmiAMdMGvmBA9UNMAkhqPiWlDrBQGVPSa+ Hg6WSO1dd5SbIQseUvVdCN5bcq1VLInNXxTnS2Y0rNWlC8U8HTuzPw9CRUHhPBKoZaXrLJFBIQkkZD4N SI1zfqP3XR2UgYTdLXScEGUnfTMwGHc4C73fxJSvTH jfJP4JQXM+Sammy+Bz7DYHTkUAStSREgTdLjXDVWUuUqO3NcV2VFx9VuY7NxRL55nUchsuLwAAgmNR8QLL 5qWLZzOERRAI0ZpSRbsV6eqmBcKLUaGHWHIfJeW86toJLlIWDdBAS1DYHtRp9WEGCyA0YacvGvfDqpmk TrPAAsZLEAHJ4XBGgtvoKbtZBuuAmoLI72cDjhAL8J Dv4EVaRkDB6rhs5TrVErTc9RKONfGK5JCDOpPKCcNBHvSVC8RPWdBpQmNNtlFSAhRENzFZL1XIGrBJBx GN1XLgUjGSNePlTrUOlgSUXlZICadq9CZRLbHTPfBfY6SzZeVEFcFOQxMUulYRDhTBIcHUG4PEYjJWIz QD2NVwQvUDEqOQC2HbCjHDUtAEVyss1AYWOmHKIdPC XfGoNwPBHtIVUaLUqxMTOhEFE6Cep9XLIaYUSbAM4RXeXjKGDyWZj3IgvsFYMqXPBmdj2DLELgVGJcSw R9SZCuCDWhTPAlMCvbRGDnMDGiXJjiEVRiZATyWG3WRfFmNDWzKEH4IGTcIEXoKSRyru6XYFJzRHPcVO nuIkCkHSNiVCXfTXuaQLZfAXA2OST1ZYBiTDFlRM3D PtZkCIMiSOjzLJOuBEIaCXKddx3JPLMzJZDwZVMvKQBtHVPiWBYkQVyhXTCmUCF0YDG3BDXdIKNmRP3V FwDqGHIgBFy2QTHlYOEmCGZjip4FYVTtKJPvVAQ1DWAdOVMdIHUmTFikNKHnIZR4FqGlKGAdIBZvOH1Q LcEaVGDcSXv9OurfNBEiVCNzrw4KTYEdQLDkJAq0TX IaEQBrRKIqOHysGMAaGZScKGYkOADiLHZpHD4ZOcMcNPHcMjRwYLUpUBYxBTYyzs9KXPNzKQVuJPaxVm RaDGDnBLDjHDoaXOVqMSUwZCzvPGLwWNSdMS3GXxBdWIIwTdTlDNZfEPXwDQBaqn3MUUVvCRLrBrZpDb GcHJKzHMRkEEo4wuPtkAKeCXa7GF8JO2ZjhwEjXazQ Ho0Wc443NCD4VQJdUu9IO8edUe3sDQFgMGZDRb8YUCe5TYn4JAT5EkC2KLwyBAJfB3MaEFw6C5Q2ERgp KSv3AFf+XLwuBbziKfY2JqGsVFV8ImSwFCY2ZVKoQUIaQZV5LMJ0Sk7xQPXNQh6+DQpzdGFydHhyZWYN DzMhNpR8NEqrIJBKJm2M ID Date Data Source [id number] 06/15/2019 11:42:34 AM [facility] Name Value Range Interpretation Code Description Data Tania rce(s) Supporting Document(s) Glucose [Mass/volume] in Capillary blood by Glucometer 106 mg/dL 70- 140 [facility] ID Date Data Source [id number] 06/15/2019 11:10:43 AM [facility] Name Value Range Interpretation Code Description Data Tania rce(s) Supporting Document(s) Leukocytes [#/volume] in Blood by Automated count 7.7 10*3/uL 4-10 [facility] Erythrocytes [#/volume] in Blood by Automated count 2.38 10*6/uL 4.6- 6.1 L [facility] Hemoglobin [Mass/volume] in Blood 7.5 g/dL 13.5-18 L [facility] Hematocrit [Volume Fraction] of Blood by Automated count 22.5 % 4 1-53 L [facility] Erythrocyte mean corpuscular volume [Entitic volume] by Auto mated count 94.7 fL 80-96 [facility] Erythrocyte mean corpuscular hemoglobin [Entitic mass] by Automated count 31.5 pg 27-33 [facility] Erythrocyte mean corpuscular hemoglobin concentration [Mass/volume] by Automated count 33.3 g/dL 32.0-36.0 [facility] width [Ratio] by Automated count 16.1 % 11.5-14.5 H [facility] Platelets [#/volume] in Blood by Automated count 285 10*3/uL 150-400 [facility] ID Date Data Source [id number] 06/15/2019 11:51:42 AM [facility] Name Value Range Interpretation Code Description Data Tania rce(s) Supporting Document(s) Ferritin [Mass/volume] in Serum or Plasma 171 ng/ml 30-400 [facility] ID Date Data Source [id number] 06/15/2019 03:28:23 PM [facility] Name Value Range Interpretation Code Description Data Tania rce(s) Supporting Document(s) Iron [Mass/volume] in Serum or Plasma 19 ug/dl 59-158 L [facility] Transferrin [Mass/volume] in Serum or Plasma 116 mg/dL 200-360 [facility] Iron binding capacity [Mass/volume] in Serum or Plasma 161 ug/dl 228 -428 [facility] Iron saturation [Mass Fraction] in Serum or Plasma 12.0 % 20-55 [facility] ID Date Data Source [id number] 06/15/2019 11:35:13 AM [facility] Name Value Range Interpretation Code Description Data Tania rce(s) Supporting Document(s) Vancomycin [Mass/volume] in Serum or Plasma --trough 13.1 ug/mL 10.0- 20.0 [facility] ID Date Data Source [id number] 06/15/2019 08:42:26 AM [facility] XR SPINE LUMBAR 2-3 VIEWS [id number] RES ULTInterpreted by:Roderick Dickerson MDORDERING CLINICAL INFORMATION: [...] rce(s) Supporting Document(s) ID Date Data Source [id number] 06/15/2019 08:06:03 AM [facility] Name Value Range Interpretation Code Description Data Tania rce(s) Supporting Document(s) Glucose [Mass/volume] in Capillary blood by Glucometer 149 mg/dL 70- 140 [facility] ID Date Data Source [id number] 06/15/2019 05:30:47 AM [facility] Name Value Range Interpretation Code Description Data Tania rce(s) Supporting Document(s) Leukocytes [#/volume] in Blood by Automated count 7.7 10*3/uL 4-10 [facility] Erythrocytes [#/volume] in Blood by Automated count 2.32 10*6/uL 4.6- 6.1 L [facility] Hemoglobin [Mass/volume] in Blood 7.2 g/dL 13.5-18 L [facility] Hematocrit [Volume Fraction] of Blood by Automated count 21.8 % 4 1-53 L [facility] Erythrocyte mean corpuscular volume [Entitic volume] by Auto mated count 94.2 fL 80-96 [facility] Erythrocyte mean corpuscular hemoglobin [Entitic mass] by Automated count 30.9 pg 27-33 [facility] Erythrocyte mean corpuscular hemoglobin concentration [Mass/volume] by Automated count 32.8 g/dL 32.0-36.0 [facility] E[facility] distribution width [Ratio] by Automated count 16.4 % 11.5-14.5 H [facility] Platelets [#/volume] in Blood by Automated count 266 10*3/uL 150-400 [facility] Differential cell count method - Blood [facility] Neutrophils/100 leukocytes in Blood by Automated count 75 % [facility] Lymphocytes/100 leukocytes in Blood by Automated count 13 % [facility] Monocytes/100 leukocytes in Blood by Automated count 8 % [facility] Eosinophils/100 leukocytes in Blood by Automated count 4 % [facility] Basophils/100 leukocytes in Blood by Automated count 0 % [facility] Neutrophils [#/volume] in Blood by Automated count 5.81 10*3/uL 1.8-7 .0 [facility] Lymphocytes [#/volume] in Blood by Automated count 0.98 10*3/uL 1.2-4 .0 L [facility] Monocytes [#/volume] in Blood by Automated count 0.61 10*3/uL 0-0.8 [facility] Eosinophils [#/volume] in Blood by Automated count 0.30 10*3/uL 0-0.5 [facility] Basophils [#/volume] in Blood by Automated count 0.03 10*3/uL 0-0.2 [facility] Nucleated erythrocytes/100 leukocytes [Ratio] in Blood by Automated count 0 /100{WBCs} 0-0 [facility] ID Date Data Source [id number] 06/15/2019 05:50:31 AM [facility] Name Value Range Interpretation Code Description Data Tania rce(s) Supporting Document(s) Bicarbonate [Moles/volume] in Serum 23 mmol/L 22-29 [facility] Chloride [Moles/volume] in Serum or Plasma 105 mmol/L 98-107 [facility] Creatinine [Mass/volume] in Serum or Plasma 0.99 mg/dL 0.70-1.20 [facility] Glucose [Mass/volume] in Serum or Plasma 183 mg/dL 70-140 [facility] Potassium [Moles/volume] in Serum or Plasma 3.6 mmol/L 3.4-5.1 [facility] Sodium [Moles/volume] in Serum or Plasma 138 mmol/L 136-145 [facility] Urea nitrogen [Mass/volume] in Serum or Plasma 17 mg/dL 8-23 [facility] Anion gap 3 in Serum or Plasma 10 mmol/L 8-15 [facility] Osmolality of Serum or Plasma by calculation 292 mosm/kg 275-300 [facility] Creatinine/Urea nitrogen [Mass Ratio] in Serum or Plasma 17 [facility] Calcium [Mass/volume] in Serum or Plasma 8.0 mg/dL 8.8-10.2 L [facility] Glomerular filtration rate/1.73 sq M pre dicted among non-blacks [Volume Rate/Area] in Serum or Plasma by Creatinine-based formula (MDRD) >6 0 [facility] Glomerular filtration rate/1.73 sq M pre dicted among blacks [Volume Rate/Area] in Serum or Plasma by Creatinine-based formula (MDRD) >60 [facility] ID Date Data Source [id number] 06/15/2019 05:50:31 AM [facility] Value Range Interpretation Code Description Data Tania rce(s) Supporting Document(s) Magnesium [Mass/volume] in Serum or Plasma 1.9 mg/dL 1.6-2.4 [facility] ID Date Data Source [id number] 06/15/2019 05:50:31 AM [facility] Value Range Interpretation Code Description Data Tania rce(s) Supporting Document(s) Phosphate [Mass/volume] in Serum or Plasma 2.9 mg/dL 2.5-4.5 [facility] ID Date Data Source [id number] 06/14/2019 08:48:50 PM [facility] Value Range Interpretation Code Description Data Tania rce(s) Supporting Document(s) Glucose [Mass/volume] in Capillary blood by Glucometer 234 mg/dL 70- 140 [facility] ID Date Data Source [id number] 06/14/2019 04:39:20 PM [facility] Value Range Interpretation Code Description Data Tania rce(s) Supporting Document(s) Glucose [Mass/volume] in Capillary blood by Glucometer 81 mg/dL 70- 140 [facility] ID Date Data Source [id number] 06/14/2019 11:44:53 AM [facility] Value Range Interpretation Code Description Data Tania rce(s) Supporting Document(s) Glucose [Mass/volume] in Capillary blood by Glucometer 135 mg/dL 70- 140 [facility] ID Date Data Source [id number] 06/14/2019 09:47:45 AM [facility] Value Range Interpretation Code Description Data Tania rce(s) Supporting Document(s) Leukocytes [#/volume] in Blood by Automated count 9.5 10*3/uL 4-10 [facility] Erythrocytes [#/volume] in Blood by Automated count 2.53 10*6/uL 4.6- 6.1 L [facility] Hemoglobin [Mass/volume] in Blood 8.0 g/dL 13.5-18 L [facility] Hematocrit [Volume Fraction] of Blood by Automated count 23.9 % 4 1-53 L [facility] Erythrocyte mean corpuscular volume [Entitic volume] by Auto mated count 94.5 fL 80-96 [facility] Erythrocyte mean corpuscular hemoglobin [Entitic mass] by Automated count 31.5 pg 27-33 [facility] Erythrocyte mean corpuscular hemoglobin concentration [Mass/volume] by Automated count 33.4 g/dL 32.0-36.0 [facility] E[facility]throcyte distribution width [Ratio] by Automated count 16.5 % 11.5-14.5 H [facility] Platelets [#/volume] in Blood by Automated count 280 10*3/uL 150-400 [facility] ID Date Data Source [id number] 06/14/2019 10:11:42 AM [facility] Name Value Range Interpretation Code Description Data Tania rce(s) Supporting Document(s) Bicarbonate [Moles/volume] in Serum 22 mmol/L 22-29 [facility] Chloride [Moles/volume] in Serum or Plasma 103 mmol/L 98-107 [facility] Creatinine [Mass/volume] in Serum or Plasma 1.02 mg/dL 0.70-1.20 [facility] Glucose [Mass/volume] in Serum or Plasma 157 mg/dL 70-140 [facility] Potassium [Moles/volume] in Serum or Plasma 3.8 mmol/L 3.4-5.1 [facility] Sodium [Moles/volume] in Serum or Plasma 134 mmol/L 136-145 L [facility] Urea nitrogen [Mass/volume] in Serum or Plasma 16 mg/dL 8-23 [facility] Anion gap 3 in Serum or Plasma 10 mmol/L 8-15 [facility] Osmolality of Serum or Plasma by calculation 283 mosm/kg 275-300 [facility] Creatinine/Urea nitrogen [Mass Ratio] in Serum or Plasma 15 [facility] Calcium [Mass/volume] in Serum or Plasma 8.0 mg/dL 8.8-10.2 L [facility] Glomerular filtration rate/1.73 sq M pre dicted among non-blacks [Volume Rate/Area] in Serum or Plasma by Creatinine-based formula (MDRD) >6 0 [facility] Glomerular filtration rate/1.73 sq M pre dicted among blacks [Volume Rate/Area] in Serum or Plasma by Creatinine-based formula (MDRD) >60 [facility] ID Date Data Source [id number] 06/14/2019 10:11:42 AM [facility] Value Range Interpretation Code Description Data Tania rce(s) Supporting Document(s) Magnesium [Mass/volume] in Serum or Plasma 1.6 mg/dL 1.6-2.4 [facility] ID Date Data Source [id number] 06/14/2019 10:11:42 AM [facility] Value Range Interpretation Code Description Data Tania rce(s) Supporting Document(s) Phosphate [Mass/volume] in Serum or Plasma 2.3 mg/dL 2.5-4.5 [facility] ID Date Data Source [id number] 06/14/2019 08:00:16 AM [facility] Value Range Interpretation Code Description Data Tania rce(s) Supporting Document(s) Glucose [Mass/volume] in Capillary blood by Glucometer 120 mg/dL 70- 140 [facility] ID Date Data Source [id number] 06/13/2019 09:06:54 PM [facility] Value Range Interpretation Code Description Data Tania rce(s) Supporting Document(s) Glucose [Mass/volume] in Capillary blood by Glucometer 170 mg/dL 70- 140 [facility] ID Date Data Source [id number] 06/13/2019 04:29:52 PM [facility] Value Range Interpretation Code Description Data Tania rce(s) Supporting Document(s) Glucose [Mass/volume] in Capillary blood by Glucometer 80 mg/dL 70- 140 [facility] ID Date Data Source [id number] 06/13/2019 01:30:35 PM [facility] Value Range Interpretation Code Description Data Tania rce(s) Supporting Document(s) ED Provider Note [facility] IUPILk3aAbHXEzWa30/WXNpyYFHkw7CaWNluYMv1CGrzEBEtV0YyOOI1bS6qOFT6VIyWCnJdYPtmKpE6 lbm KqDocAPpYuMJItJzeFRdBuFOasTucgfNYlRA9CuWO3CPFpL98hYMHmVVKtI3JfUBM3KVA+Qy0RZEPtsE ZnJJ5OCejP8D6jybg5Sf9Z0x5IWpAmGi6OrRZt5QTnKKREJ9BVmYa8imuIXVfXOARxbD7s27ngIj5XOn AgNsel6bMrTvL9Oi62fNAuzOPpyk/RSWS1vhDtoi+/ RomrRlfqH5+p22ae+7JQ0GdOGJc5BvwEFUrjf7llekmjgX8348fNlfbAezjAGi856ZbkLzHBq/6fL9Tg J0NzX5nIotHE2I1LpviiapUAJZfC10CqBcO44BrWNSYRPkK+lK0Didchf0BhmUa2tJ+gePjwl8+BkWh7 TwJ3cY4fnWk1MLzVFyz7xIWWWJvaX13k9TQDprxz1P uLusM2H7we5OIrL4qJjRZge4fL+V9o/9Cm6RXEdYwk4tStjguFS6fL6tCj5KpV4vI6dct7h39rPh1u5r or8pi6jbaHpT2PmUgvx/maxMQ4gWoXJvD8qOSEGyDiOHaW87D/i8KriB4DaBl7XTP5KY3LnX22sflkay efJNIQuWchRgGP39/BelPqElISNsvtawOazoA5r8J2 ccVCG0kRUVNFy3EFGECIiHxwzaCQWOkhO90OYAGrtHS+cfoYORtQDiyiIBJ3zZnQW/LwhCTvv7jGFUAx HdRJbuJmqdlqiqTfhXV4ESQaVAYTj+YwlHAqj9kSsjTJk0aAaPpLfGSr1cZqgvMLsb6ePuOOUUeqyjas +2dPjzQkx0iprJartzAbnNJdUhulhDQQbtR4xU13rq dDLfR59OrF4UCZvDs8tRhSaepKeKxPuG28rl/C2e8Sl3Zm++qal5i7gRxjy1JkBNtY7mRjeI2r5Sx7BE 1N52m/55gcZnEiWcuQmFSJq4ef9JCbbYlkppg+lfQWCe4HkSlN115pvzugpGf66Gmox+diUFIw1K+ADIN [file] ID Date Data Source [id number] 06/13/2019 11:55:19 AM [facility] Name Value Range Interpretation Code Description Data Tania rce(s) Supporting Document(s) Glucose [Mass/volume] in Capillary blood by Glucometer 133 mg/dL 70- 140 [facility] ID Date Data Source [id number] 06/13/2019 10:39:35 AM [facility] Name Value Range Interpretation Code Description Data Tania rce(s) Supporting Document(s) Leukocytes [#/volume] in Blood by Automated count 9.0 10*3/uL 4-10 [facility] Erythrocytes [#/volume] in Blood by Automated count 2.86 10*6/uL 4.6- 6.1 L [facility] Hemoglobin [Mass/volume] in Blood 8.9 g/dL 13.5-18 L [facility] Hematocrit [Volume Fraction] of Blood by Automated count 27.1 % 4 1-53 L [facility] Erythrocyte mean corpuscular volume [Entitic volume] by Auto mated count 94.7 fL 80-96 [facility] Erythrocyte mean corpuscular hemoglobin [Entitic mass] by Automated count 31.1 pg 27-33 [facility] Erythrocyte mean corpuscular hemoglobin concentration [Mass/volume] by Automated count 32.8 g/dL 32.0-36.0 [facility] E[facility] distribution width [Ratio] by Automated count 16.4 % 11.5-14.5 H [facility] Platelets [#/volume] in Blood by Automated count 289 10*3/uL 150-400 [facility] Differential cell count method - Blood [facility] Neutrophils/100 leukocytes in Blood by Automated count 85 % [facility] Lymphocytes/100 leukocytes in Blood by Automated count 9 % [facility] Monocytes/100 leukocytes in Blood by Automated count 5 % [facility] Eosinophils/100 leukocytes in Blood by Automated count 1 % [facility] Basophils/100 leukocytes in Blood by Automated count 0 % [facility] Neutrophils [#/volume] in Blood by Automated count 7.63 10*3/uL 1.8-7 .0 H [facility] Lymphocytes [#/volume] in Blood by Automated count 0.80 10*3/uL 1.2-4 .0 L [facility] Monocytes [#/volume] in Blood by Automated count 0.46 10*3/uL 0-0.8 [facility] Eosinophils [#/volume] in Blood by Automated count 0.11 10*3/uL 0-0.5 [facility] Basophils [#/volume] in Blood by Automated count 0.04 10*3/uL 0-0.2 [facility] Nucleated erythrocytes/100 leukocytes [Ratio] in Blood by Automated count 0 /100{WBCs} 0-0 [facility] ID Date Data Source [id number] 06/13/2019 11:11:53 AM [facility] Name Value Range Interpretation Code Description Data Tania rce(s) Supporting Document(s) Bicarbonate [Moles/volume] in Serum 23 mmol/L 22-29 [facility] Chloride [Moles/volume] in Serum or Plasma 103 mmol/L 98-107 [facility] Creatinine [Mass/volume] in Serum or Plasma 1.03 mg/dL 0.70-1.20 [facility] Glucose [Mass/volume] in Serum or Plasma 214 mg/dL 70-140 [facility] Potassium [Moles/volume] in Serum or Plasma 3.9 mmol/L 3.4-5.1 [facility] Sodium [Moles/volume] in Serum or Plasma 138 mmol/L 136-145 [facility] Urea nitrogen [Mass/volume] in Serum or Plasma 16 mg/dL 8-23 [facility] Anion gap 3 in Serum or Plasma 12 mmol/L 8-15 [facility] Osmolality of Serum or Plasma by calculation 294 mosm/kg 275-300 [facility] Creatinine/Urea nitrogen [Mass Ratio] in Serum or Plasma 16 [facility] Calcium [Mass/volume] in Serum or Plasma 8.5 mg/dL 8.8-10.2 L [facility] Glomerular filtration rate/1.73 sq M pre dicted among non-blacks [Volume Rate/Area] in Serum or Plasma by Creatinine-based formula (MDRD) >6 0 [facility] Glomerular filtration rate/1.73 sq M pre dicted among blacks [Volume Rate/Area] in Serum or Plasma by Creatinine-based formula (MDRD) >60 [facility] ID Date Data Source [id number] 06/13/2019 11:11:53 AM [facility] Name Value Range Interpretation Code Description Data Tania rce(s) Supporting Document(s) Magnesium [Mass/volume] in Serum or Plasma 1.7 mg/dL 1.6-2.4 [facility] ID Date Data Source [id number] 06/13/2019 11:11:53 AM [facility] Name Value Range Interpretation Code Description Data Tania rce(s) Supporting Document(s) Phosphate [Mass/volume] in Serum or Plasma 1.9 mg/dL 2.5-4.5 L [facility] ID Date Data Source [id number] 06/13/2019 07:32:48 AM [facility] Name Value Range Interpretation Code Description Data Tania rce(s) Supporting Document(s) [facility] BRKWHl9kEiNPWoYs00/JUMgbMDDlu2SmRPswQQe0CXwaWQOqI5GzHVH2zT6kTKC2MUaAGoSaXAzxTbZ2 [facility] TaPxfKXjIfEBJvRcjERjFpMAeoMqriqWWmAH1LfFW8JVTcX90jAECtRZGwO2GqITP6HMK+Ly1OCBSuiK GcYK1VInhZ9Cnavxa0NC/vTP+HnXamE8/YcJLuQ+c3/CR7qhKP58xLml1PFMToEpdXsB2uR07DuNgmRl sHjuDFAanI3xk7I6tVPxR/8zinouq5YeK/lz+DUEJv DD//BUbmKs8vuD3NZIuOlTKV8YqSElH+VQPYcqytSbi60I7H1OW519PZ7QkM5o/2lUpui5FHgKPVWxvB 515mhS4yA1CfpKED3IEGdkEzurY8qd2Mvf1fhhsfi7zRjChZtiqeb9m7GQv8LjVscws7Zc63xFlQAQF1 ENlMgWwNkVfbPZJ1u3PkHqm6ejpH57erqnP9KMaVAo GefETvApkltyKHCSV6rWf287uVaihwIYipF3CNFWuN8MUHssZfARsqQQo/9H5NGTP7e5OSEDXNoQcQVi VD/izlBUrm/xBzdGS4sXMk8GFZZb0EcBa6j2tj4PpfMJu3sxCshF6X7zO+Ff6VFcp+nBS5qa14KjCDea 7b049YQperwnunwkW/n31zIhtPUK4j1gX8p1bT19r1 5egXzNE8aDAhe78ZVAqt7ESZDgn9elK+LW00rrN0DI1eP/1+Se2b5vxKrGkAhqAio8B2zFQKnRwZNbqw Jayce/pRY68SxGQr0ZVT/G1ZGPowf7svDhjhBSsltzNmKedHpCDZlKyMhG0bvd6Us+TrQyrYuT1Y2SuI6y [file] SiLt2kSGOXSf4+NOkcvUIxoOugWHZSElavBeIUTpEzLJ9WNKu= ID Date Data Source [id number] 06/13/2019 08:00:08 AM [facility] Name Value Range Interpretation Code Description Data Tania rce(s) Supporting Document(s) Glucose [Mass/volume] in Capillary blood by Glucometer 145 mg/dL 70- 140 [facility] ID Date Data Source [id number] 06/12/2019 09:57:10 PM [facility] Name Value Range Interpretation Code Description Data Tania rce(s) Supporting Document(s) Glucose [Mass/volume] in Capillary blood by Glucometer 177 mg/dL 70- 140 [facility] ID Date Data Source [id number] 06/12/2019 08:22:25 PM [facility] Name Value Range Interpretation Code Description Data Tania rce(s) Supporting Document(s) Consultation [facility] KWBSKz2kWnMTMiEj10/KPQzfBHIrn8QxIMtnPJd2YKgtGVZwU2XwLLK9yF6pNLD6UMsALtJzKLcpDeE3 lbm [file] [id number]+TRAFFIC LAW ATTORNEY/5qMKTBz23ipUm2Xkuizor0HWc2FGyQibvrBci6MdlefgSh6+KKrhZPvXpPA/vMZn6LFW [file] CoYOJgYXUsTSUOSAfiHV7IKU8wjmA4SZ3ToPMsPWNtSMQktFHbBXv2F08vfGVvADbeQR5OGSW+Sammy+Pg 2WYDEnSGCrIUVwXdXwQTXHTmHvG3GkG8RAz6JgV8PnPW35tQtboqOsCFffKT8DCR9wYBVpZPYIHD5VrI WlhJ5hyqK7QOWoPKJFInRqT80aaLWiYTTeBMK6PWUh Vm4ILLSvG0AbevYalZanaePiGIQfUXWESF6MOFdyrjOesBGdnYsrWG45hDaeHM6DMm5JXiVeHB0umz3G fRXvDh2BBAZ6TD5MCWQoYRHmYYFaEXC8VNSsQhYsJWzqQMIpYYDbQBT1NOUqZODkQH1YJeLvSAMvEBs2 KYItBAYqJZRang9HBFOiGNV2QTZ2ZVMfHZLxPDDpSU fqNBBsFJIfFJZ1RRJwIAKpYS4EEjEqXFRiPAZ5PZcqWVBgKFShjj8CGYMdWKZvLTS5KdOfRNEnSSSvSA udHGLqLVO9FDHjSKUcXNIbIH1YThSgOTGaABzyRJooDENlTMEezz4QCMOrQBApJRHaYnDaDUTvONTtWP bzTACoDAFzYkN2LVPzYMIzZC1QLmCpACCxRNC9ZiQo SQKtAOHucv6AIMRzKFHzJfHtMwQgOSWaBJTyNGxlGNQtSCS8ASBbJLOlDKFbFK5PVhNcNVAbXVS8Ywwq MVDfXYJyvp1MSYMzNIKnWZpkQNVcHQNqHPOjEKiwWECyNFK3KCKmHLQfKTKbEI8FAjNzYOBaYaMxSHQw EUZbEPMuqw3CLKVtUEF6BPF9UoOnZFNkFIWuUVkuTH AnJJDmBUl3USPmESLxQH8SDoSsSOOpHnToMJSyAMJgLPYnyx6WJPXyUWX4CAgsJeNtNNVbKCXhESumOZ UeZUMtFVz9DYEaCAPjGC2RDbNtJTOmHuVdGUMwDQYyEWKaxe4JZXSaTSI3DUHcXnDeIIYuKZOnJPonEJ MdDVXhSjakHDNcBONaSE7ZWpEyWAYpLtB2UZygBGFe WRYika7VJAQjIIC0YGctBpLzIONlQLPfAOnmYZXsXFUyVKp3OYAiQPXgHP9WEvRmBWPbKsHcOXHdAMRv CKXfqg6LEHKhXVV1ArTqOdDxYWBvRBYgWLdqAWRrETVeTldzDCJkUWEhDJ4WSuZtBMLhCjJ0TTVsYOCq FAZoau8JOZGqIDTnLuu0OkBeVJKnMQEpYKpsTQGqIS B5QQroWNMxIZYgFA0QHoYtMDWhEil9FRDrKHYmIUXxeo9KCEGoLCXrZSJ5NOKyEAEoSEWdNLegBXAjLD Q7LaMdPJKdRNJqDL2VPqCdICYhNkHnDPLhODVhAEWrbm0GJFVjFTCaSGM4HZYxLWWhNXScOXnuOQOzZH QzAcndXGVyJFKvUH5NPrZkOLGtFiC2AaDsHZTlYSNs wi3KKVZuHXYvEBtpUIAcMVSzOQVoGFitNBCtRKAlRUNbYZGnQBQuDX0IUeZkHYGiNLQyOPktWHFeRZCu sl4DDVQwRQD7MqlbRBFhOUFyEFXxQYgaEXCaFWKkHNV1QGFwTFNnSI4AYgClPLCnWCUxJhIfJMKjRTTq iq8EAOYcWSB6NGTpUWNnCSEdOOFuAOabCXDnFLF1Jf UbPLPbBNQxCN5LUrQmBSCzSTK9EPUfUGKwUXLnol8CWAZnTJR6HDLqMUVwSHRxQPBqXKauMFCfCQD9HM NfBHSaPZZoXX8WOhWjUCMcCWwrSUzpNJTvIXPujb6BRAJxUFA6OQn1KJBfSWFcKGIvBMbzZPQzXVFsAw OmKCEsTCRmEB5TTjWuZASlClS9HZKzWYUgHBDdzm1F PYHyKNM6EwYoUhVhTKGmMABwYMa0oyBcbEEfKTm5TH3BN4QhcfKwVYdSRe2Db097ZFR6RCKmLs4RH5hy Ub9tCLQrURKGCw3SBMn9CZJaSojeWIz9UFswMUSvMqxtRYggRkh0JMK1WKKvLUJ+SAckDqN2XNK1NSu9 GAU3CoQ6OZS3IWObMQZ5VGo9PgK5Fr2sHHFMYs3+DHnhtZUjrHgxDBZUGxHbEcicZYyjJRGCPn5A ID Date Data Source [id number] 06/12/2019 04:32:47 PM [facility] Name Value Range Interpretation Code Description Data Tania rce(s) Supporting Document(s) Glucose [Mass/volume] in Capillary blood by Glucometer 126 mg/dL 70- 140 [facility] ID Date Data Source [id number] 06/12/2019 11:29:44 AM [facility] Name Value Range Interpretation Code Description Data Tania rce(s) Supporting Document(s) Glucose [Mass/volume] in Capillary blood by Glucometer 150 mg/dL 70- 140 [facility] ID Date Data Source [id number] 06/13/2019 03:03:49 PM [facility] Service Cmnt XXX-Imp : Microorganism XXX Cult : NO Methicillin resistant Staphylococcus aureus isolated Name Value Range Interpretation Code Description Data Tania rce(s) Supporting Document(s) ID Date Data Source [id number] 06/12/2019 07:49:30 AM [facility] Name Value Range Interpretation Code Description Data Tania rce(s) Supporting Document(s) Glucose [Mass/volume] in Capillary blood by Glucometer 239 mg/dL 70- 140 [facility] Procedure Social History Code Duration Value Status Description Data Source(s ) Smoking 08/05/2020 12:00:00 AM EST Never Smoker completed Never S moker eCW1 ([facility]) Smoking 08/05/2020 12:00:00 AM EST Never Smoker completed Never S moker eCW1 ([facility]) Smoking 07/16/2020 12:00:00 AM EST Never Smoker completed Never S moker eCW1 ([facility]) Smoking 06/27/2020 12:00:00 AM EST Never Smoker completed Never S moker eCW1 ([facility]) Smoking 06/20/2020 12:00:00 AM EST Never Smoker completed Never S moker eCW1 ([facility]) Smoking 05/20/2020 12:00:00 AM EST Never Smoker completed Never S moker eCW1 ([facility]) Smoking 05/20/2020 12:00:00 AM EST Never Smoker completed Never S moker eCW1 ([facility]) Smoking 05/20/2020 12:00:00 AM EST Never Smoker completed Never S moker eCW1 ([facility]) Smoking 05/20/2020 12:00:00 AM EST Never Smoker completed Never S moker eCW1 ([facility]) Smoking 04/05/2020 12:00:00 AM EDT Never Smoker completed Never S moker eCW1 ([facility]) Smoking 03/26/2020 12:00:00 AM EDT Never Smoker completed Never S moker eCW1 ([facility]) Smoking 03/26/2020 12:00:00 AM EDT Never Smoker completed Never S moker eCW1 ([facility]) Alcohol intake 03/24/2020 12:00:00 AM EDT Ex-drinker (finding) comp leted Ex- drinker (finding) [facility] Tobacco use and exposure 03/24/2020 12:00:00 AM EDT Never used co mpleted Never used [facility] Smoking 03/24/2020 12:00:00 AM EDT Never smoker completed Never s [facility] Smoking 01/15/2020 12:00:00 AM EDT Patient is a former smoker completed Patient is a former smoker [facility] ([facility] ) Smoking 01/09/2020 12:00:00 AM EDT Never Smoker completed Never S moker eCW1 ([facility]) Smoking 01/09/2020 12:00:00 AM EDT Never Smoker completed Never S moker eCW1 ([facility]) Smoking 12/08/2019 12:00:00 AM EDT Never Smoker completed Never S moker eCW1 ([facility]) Smoking 12/08/2019 12:00:00 AM EDT Never Smoker completed Never S moker eCW1 ([facility]) Smoking 12/08/2019 12:00:00 AM EDT Never Smoker completed Never S moker eCW1 ([facility]) Smoking 12/08/2019 12:00:00 AM EDT Never Smoker completed Never S moker eCW1 ([facility]) Smoking 12/08/2019 12:00:00 AM EDT Never Smoker completed Never S moker eCW1 ([facility]) Smoking 11/16/2019 12:00:00 AM EDT Never Smoker completed Never [facility] eCW1 ([facility]) Alcohol intake 09/24/2019 12:00:00 AM EDT Ex-drinker (finding) comp leted Ex- drinker (finding) [facility] Smoking 09/24/2019 12:00:00 AM EDT Never smoker completed Never [facility] Alcohol intake 07/30/2019 12:00:00 AM EST Ex-drinker (finding) comp leted Ex- drinker (finding) [facility] Smoking 07/30/2019 12:00:00 AM EST Never smoker completed Never [facility] Alcohol intake 07/24/2019 12:00:00 AM EST Ex-drinker (finding) comp leted Ex- drinker (finding) [facility] Smoking 07/24/2019 12:00:00 AM EST Never smoker completed Never [facility] Alcohol intake 07/10/2019 12:00:00 AM EST Ex-drinker (finding) comp leted Ex- drinker (finding) [facility] Smoking 07/10/2019 12:00:00 AM EST Never smoker completed Never [facility] Alcohol intake 06/26/2019 12:00:00 AM EST Ex-drinker (finding) comp leted Ex- drinker (finding) [facility] Smoking 06/26/2019 12:00:00 AM EST Never smoker completed Never [facility] Vital Signs ID Date Data Source UNK Name Value Range Interpretation Code Description Data Source(s) Diastolic blood pressure 90 mm[Hg] 90 mm[Hg] eCW1 ([facility]) Systolic blood pressure 175 mm[Hg] 175 mm[Hg] e CW1 ([facility]) Body temperature 95.9 [degF] 95.9 [degF] eCW1 ( [facility]) Respiratory rate 20 /min 20 /min eCW1 ([facility]) Heart rate 78 /min 78 /min eCW1 ([facility]) Body mass index (BMI) [Ratio] 27.06 kg/m2 27.06 kg/m2 eCW1 ([facility]) Body height 68 [in_i] 68 [in_i] eCW1 ([facility]) Body weight 178 [lb_av] 178 [lb_av] eCW1 ([facility]) Diastolic blood pressure 74 mm[Hg] 74 mm[Hg] eCW1 ([facility]) Systolic blood pressure 150 mm[Hg] 150 mm[Hg] e CW1 ([facility]) Respiratory rate 18 /min 18 /min eCW1 ([facility]) Heart rate 70 /min 70 /min eCW1 ([facility]) Body mass index (BMI) [Ratio] 26.30 kg/m2 26.30 kg/m2 eCW1 ([facility]) Body height 68 [in_i] 68 [in_i] eCW1 ([facility]) Body weight 173 [lb_av] 173 [lb_av] eCW1 ([facility]) Diastolic blood pressure 77 mm[Hg] 77 mm[Hg] eCW1 ([facility]) Systolic blood pressure 185 mm[Hg] 185 mm[Hg] e CW1 ([facility]) Body temperature 97.3 [degF] 97.3 [degF] eCW1 ( [facility]) Respiratory rate 18 /min 18 /min eCW1 ([facility]) Heart rate 70 /min 70 /min eCW1 ([facility]) Body mass index (BMI) [Ratio] 26.30 kg/m2 26.30 kg/m2 eCW1 ([facility]) Body height 68 [in_i] 68 [in_i] eCW1 ([facility]) Body weight 173 [lb_av] 173 [lb_av] eCW1 ([facility]) Diastolic blood pressure 85 mm[Hg] 85 mm[Hg] eCW1 ([facility]) Systolic blood pressure 167 mm[Hg] 167 mm[Hg] e CW1 ([facility]) Body temperature 97.9 [degF] 97.9 [degF] eCW1 ( [facility]) Respiratory rate 18 /min 18 /min eCW1 ([facility]) Heart rate 78 /min 78 /min eCW1 ([facility]) Body mass index (BMI) [Ratio] 26.15 kg/m2 26.15 kg/m2 eCW1 ([facility]) Body height 68 [in_i] 68 [in_i] eCW1 ([facility]) Body weight 172 [lb_av] 172 [lb_av] eCW1 ([facility]) Diastolic blood pressure 74 mm[Hg] 74 mm[Hg] eCW1 ([facility]) Systolic blood pressure 152 mm[Hg] 152 mm[Hg] e CW1 ([facility]) Body temperature 96.6 [degF] 96.6 [degF] eCW1 ( [facility]) Respiratory rate 20 /min 20 /min eCW1 ([facility]) Heart rate 67 /min 67 /min eCW1 ([facility]) Body mass index (BMI) [Ratio] 25.85 kg/m2 25.85 kg/m2 eCW1 ([facility]) Body height 68 [in_i] 68 [in_i] eCW1 ([facility]) Body weight 170 [lb_av] 170 [lb_av] eCW1 ([facility]) Diastolic blood pressure 120 mm[Hg] 120 mm[Hg] eCW1 ([facility]) Systolic blood pressure 210 mm[Hg] 210 mm[Hg] e CW1 ([facility]) Body temperature 96.8 [degF] 96.8 [degF] eCW1 ( [facility]) Respiratory rate 20 /min 20 /min eCW1 ([facility]) Heart rate 91 /min 91 /min eCW1 ([facility]) Body mass index (BMI) [Ratio] 25.69 kg/m2 25.69 kg/m2 W1 ([facility]) Body height 68 [in_i] 68 [in_i] eCW1 ([facility]) Body weight 169 [lb_av] 169 [lb_av] eCW1 ([facility]) Diastolic blood pressure 75 mm[Hg] 75 mm[Hg] eCW1 ([facility]) Systolic blood pressure 153 mm[Hg] 153 mm[Hg] e CW1 ([facility]) Body temperature 98.3 [degF] 98.3 [degF] eCW1 ( [facility]) Respiratory rate 18 /min 18 /min eCW1 ([facility]) Heart rate 82 /min 82 /min eCW1 ([facility]) Body mass index (BMI) [Ratio] 25.54 kg/m2 25.54 kg/m2 eCW1 ([facility]) Body height 68 [in_i] 68 [in_i] eCW1 ([facility]) Body weight 168 [lb_av] 168 [lb_av] eCW1 ([facility]) [place] body weight 166 [lb_av] 166 [lb_av] MEDEN T ([facility]) Body mass index (BMI) [Ratio] 24.5 kg/m2 24.5 k g/m2 [facility] ([facility]) Body weight 171.00 [lb_av] 171.00 [lb_av] MEDEN T ([facility]) Body height 70 [in_i] 70 [in_i] [facility] ([facility]) 5'10" Respiratory rate 12 /min 12 /min [facility] ( [facility]) Body weight 78.076 kg 78.076 kg [facility] ([facility]) Body mass index (BMI) [Ratio] 24.7 kg/m2 24.7 k g/m2 [facility] ([facility]) Body weight 172.12 [lb_av] 172.12 [lb_av] MEDEN T ([facility]) Body height 70 [in_i] 70 [in_i] [facility] ([facility]) 5'10" Diastolic blood pressure 73 mm[Hg] 73 mm[Hg] [facility] ([facility]) Systolic blood pressure 152 mm[Hg] 152 mm[Hg] M EDENT ([facility]) Body weight 77.736 kg 77.736 kg [facility] ([facility]) Body mass index (BMI) [Ratio] 24.6 kg/m2 24.6 k g/m2 [facility] ([facility]) Body weight 171.38 [lb_av] 171.38 [lb_av] MEDEN T ([facility]) Body height 70 [in_i] 70 [in_i] [facility] ([facility]) 5'10" Diastolic blood pressure 82 mm[Hg] 82 mm[Hg] [facility] ([facility]) Systolic blood pressure 142 mm[Hg] 142 mm[Hg] M EDENT ([facility]) Diastolic blood pressure mm[Hg] eCW1 ([facility]) Systolic blood pressure 142 mm[Hg] 142 mm[Hg] e CW1 ([facility]) Body temperature 98.2 [degF] 98.2 [degF] eCW1 ( [facility]) Respiratory rate 17 /min 17 /min eCW1 ([facility]) Heart rate 65 /min 65 /min eCW1 ([facility]) Body mass index (BMI) [Ratio] 25.54 kg/m2 25.54 kg/m2 [facility] ([facility]) Body height 68 [in_i] 68 [in_i] eCW1 ([facility]) Body weight 168 [lb_av] 168 [lb_av] eCW1 ([facility]) [place] body weight 166 [lb_av] 166 [lb_av] MEDEN T ([facility]) Body mass index (BMI) [Ratio] 24.5 kg/m2 24.5 k g/m2 [facility] ([facility]) Body weight 171.00 [lb_av] 171.00 [lb_av] MEDEN T ([facility]) Body height 70 [in_i] 70 [in_i] [facility] ([facility]) 5'10" Respiratory rate 12 /min 12 /min [facility] ( [facility]) Heart rate 64 /min 64 /min [facility] ([facility]) Diastolic blood pressure 50 mm[Hg] 50 mm[Hg] [facility] ([facility]) Systolic blood pressure 140 mm[Hg] 140 mm[Hg] M EDENT ([facility]) Diastolic blood pressure mm[Hg] eCW1 ([facility]) Systolic blood pressure 122 mm[Hg] 122 mm[Hg] e CW1 ([facility]) Body temperature 97.7 [degF] 97.7 [degF] eCW1 ( [facility]) Respiratory rate 18 /min 18 /min eCW1 ([facility]) Heart rate 65 /min 65 /min eCW1 ([facility]) Body mass index (BMI) [Ratio] 26.45 kg/m2 26.45 kg/m2 eCW1 ([facility]) Body height 68 [in_us] 68 [in_us] eCW1 ([facility]) Body weight Measured 174 [lb_av] 174 [lb_av] eC W1 ([facility]) Diastolic blood pressure 78 mm[Hg] 78 mm[Hg] eCW1 ([facility]) Systolic blood pressure 132 mm[Hg] 132 mm[Hg] e CW1 ([facility]) Body temperature 97.5 [degF] 97.5 [degF] eCW1 ( [facility]) Respiratory rate 18 /min 18 /min eCW1 ([facility]) Heart rate 96 /min 96 /min eCW1 ([facility]) Body mass index (BMI) [Ratio] 22.04 kg/m2 22.04 kg/m2 eCW1 ([facility]) Body height 68 [in_us] 68 [in_us] eCW1 ([facility]) Body weight Measured 145 [lb_av] 145 [lb_av] eC W1 ([facility]) Deprecated Oxygen saturation in Capillary blood by Oximetry 99 % 99 % eCW1 ([facility]) Respiratory rate 16 /min 16 /min eCW1 ([facility]) Heart rate 89 /min 89 /min eCW1 ([facility]) Body temperature 97.9 [degF] 97.9 [degF] eCW1 ( [facility]) Body mass index (BMI) [Ratio] 24.08 kg/m2 24.08 kg/m2 eCW1 ([facility]) Body weight Measured 158.4 [lb_av] 158.4 [lb_av ] eCW1 ([facility]) Body height 68 [in_us] 68 [in_us] eCW1 ([facility]) ID Date Data Source [id number] 03/24/2020 07:15:41 AM EDT [facility] Name Value Range Interpretation Code Description Data Source(s) WEIGHT RECORDED 167 lb 167 lb [facility] Body height Measured 66 in 66 in [facility] ID Date Data Source [id number] 06/26/2019 08:43:26 AM [facility] Name Value Range Interpretation Code Description Data Source(s) WEIGHT RECORDED 173 lb 173 lb [facility] Body height Measured 70 in 70 in [facility] ID Date Data Source [id number] 08/07/2019 07:54:51 AM [facility] Name Value Range Interpretation Code Description Data Source(s) WEIGHT RECORDED 173 lb 173 lb [facility] Body height Measured 70 in 70 in [facility] Patient Treatment Plan of Care Planned Activity Planned Date Details Description Data Source (s) Sulfamethoxazole 800 MG / Trimethoprim 160 MG Oral Tab let [Bactrim] 04/05/2020 12:00:00 AM EDT [facility] ([facility]) Finasteride 5 MG Oral Tablet 03/07/2020 12:00:00 AM [facility] Finasteride 5 MG Oral Tablet [Proscar] 01/09/2020 12:00:00 AM EDT [facility] ([facility]) Finasteride 5 MG Oral Tablet [Proscar] 01/09/2020 12:00:00 AM EDT [facility] ([facility]) atorvastatin 40 MG Oral Tablet 12/25/2019 12:00:00 AM [facility] apixaban 2.5 MG Oral Tablet [Eliquis] 12/20/2019 12:00:00 AM [facility] Amlodipine 10 MG Oral Tablet 12/18/2019 12:00:00 AM [facility] Cephalexin 250 MG 12/15/2019 01:00:00 AM EDT [facility]) MetFORMIN HCl 1000 MG 11/26/2019 01:00:00 AM EDT [facility] ([facility]) Tamsulosin HCl 0.4 MG 11/26/2019 01:00:00 AM EDT [facility] ([facility]) Atorvastatin Calcium 40 MG 11/26/2019 01:00:00 AM EDT [facility] ([facility]) Pravastatin Sodium 20 MG 11/26/2019 01:00:00 AM EDT [facility]) Losartan Potassium-HCTZ 100-12.5 MG 11/26/2019 01:00:00 AM EDT [facility] ([facility]) Iron (Ferrous Sulfate) 142 (45 Fe) MG 11/26/2019 01:00:00 AM EDT [facility] ([facility]) Omeprazole 20 MG 11/26/2019 01:00:00 AM EDT [facility] ([facility]) Daily Multivitamin 11/26/2019 01:00:00 AM EDT [facility]) B12 Folate 800-800 MCG 11/26/2019 01:00:00 AM EDT [facility]) Insulin Detemir 100 UNIT/ML 11/26/2019 01:00:00 AM EDT [facility]) Eliquis 2.5 MG 11/26/2019 01:00:00 AM EDT [facility] ([facility]) AmLODIPine Besylate 10 MG 11/22/2019 01:00:00 AM EDT [facility] ([facility]) Cephalexin 500 MG Oral Capsule [Keflex] 08/23/2019 12:00:00 AM EST eCW1 ([facility]) Tamsulosin hydrochloride 0.4 MG Oral Capsule 07/17/2019 12:00:00 AM [facility] Misc. Devices (DURABLE MEDICAL EQUIPMENT SEE SIG) XX M ISC 07/03/2019 12:00:00 AM [facility] Ibuprofen 200 MG 06/26/2019 12:00:00 AM [facility]) Misc. Devices (DURABLE MEDICAL EQUIPMENT SEE SIG) XX M ISC 06/23/2019 12:00:00 AM [facility] ospital Tylenol Extra Strength 500 MG 06/20/2019 12:00:00 AM [facility] ([facility]) Tamsulosin HCl 0.4 MG 06/16/2019 12:00:00 AM [facility] ([facility]) Omeprazole 20 MG 06/16/2019 12:00:00 AM [facility] ([facility]) Pravastatin Sodium 20 MG 06/16/2019 12:00:00 AM [facility]) Ferrous Sulfate 325 (65 Fe) MG 06/16/2019 12:00:00 AM [facility]) Losartan Potassium 100 MG 06/16/2019 12:00:00 AM [facility]) MetFORMIN HCl 1000 MG 06/16/2019 12:00:00 AM [facility]) Senna 8.6 MG 06/16/2019 12:00:00 AM [facility] ([facility]) Heparin Lock Flush 100 UNIT/ML 06/16/2019 12:00:00 AM [facility]) Normal Saline Flush 0.9 % 06/16/2019 12:00:00 AM [facility]) CefTRIAXone Sodium 2 GM 06/16/2019 12:00:00 AM [facility]) Vancomycin HCl 1.5 GM 06/16/2019 12:00:00 AM [facility]) Lantus SoloStar 100 UNIT/ML 06/16/2019 12:00:00 AM [facility]) Normal Saline Flush 0.9 % Intravenous Solution 06/16/2019 12:00:00 AM [facility] 3 ML heparin sodium, porcine 100 UNT/ML Prefilled Syri nge 06/16/2019 12:00:00 AM [facility] ospital Tamsulosin hydrochloride 0.4 MG Oral Capsule 06/16/2019 12:00:00 AM [facility] POLYETHYLENE GLYCOL 3350 142 MG/ML Oral Solution 06/16/2019 12:00:0 0 AM [facility] Ceftriaxone 2000 MG Injection 06/16/2019 12:00:00 AM [facility] Vancomycin HCl 1.5 GM Intravenous Solution Reconstitut ed (VANCOCIN) 06/16/2019 12:00:00 AM [facility] ospital Tamsulosin hydrochloride 0.4 MG Oral Capsule 06/16/2019 12:00:00 AM [facility] POLYETHYLENE GLYCOL 3350 142 MG/ML Oral Solution 06/16/2019 12:00:0 0 AM [facility] Tamsulosin hydrochloride 0.4 MG Oral Capsule 06/16/2019 12:00:00 AM [facility] POLYETHYLENE GLYCOL 3350 142 MG/ML Oral Solution 06/16/2019 12:00:0 0 AM [facility]6 MG Oral Tablet 06/15/2019 12:00:00 AM [facility] ferrous sulfate 325 MG Oral Tablet 06/15/2019 12:00:00 AM [facility] Vancomycin HCl 1500 MG/300ML Intravenous Solution (VAN COCIN) 06/15/2019 12:00:00 AM [facility] ospital Ceftriaxone 2000 MG Injection 06/15/2019 12:00:00 AM [facility] Acetaminophen 325 MG Oral Tablet 06/15/2019 12:00:00 AM [facility] [place] 8.6 MG Oral Tablet 06/15/2019 12:00:00 AM [facility] ferrous sulfate 325 MG Oral Tablet 06/15/2019 12:00:00 AM [facility] ferrous sulfate 325 MG Oral Tablet 06/15/2019 12:00:00 AM [facility] ferrous sulfate 325 MG Oral Tablet 06/15/2019 12:00:00 AM [facility] 8.6 MG Oral Tablet 06/15/2019 12:00:00 AM [facility] Hydralazine Hydrochloride 20 MG/ML Injectable Solution 06/14/2019 07:49:21 AM [facility] ospital Bisacodyl 10 MG Rectal Suppository 06/13/2019 10:27:21 AM [facility] sodium chloride (preservative free) 0.9 % flush 10 mL 06/13/2019 10:26:31 AM [facility] ospital Glucose 0.4 MG/MG Oral Gel 06/11/2019 02:11:29 PM [facility] dextrose 50 % IV solution 25 mL 06/10/2019 11:20:42 PM [facility] Glucagon 1 MG Injection 06/10/2019 11:20:42 PM [facility] Glucose 0.4 MG/MG Oral Gel 06/10/2019 11:20:42 PM [facility] Pravastatin Sodium 20 MG Oral Tablet [facility] Acetaminophen 325 MG Oral Tablet [facility] meloxicam 15 MG Oral Tablet [facility] tramadol hydrochloride 50 MG Oral Tablet [facility]
[2020-08-11 06:00] VITALS: BP 140/67
== END 2020-08-11 06:02 | disposition home or self-care (01) ==
LOC: M ED 03:51
DX: T83.091A Other mechanical complication of indwelling urethral catheter, initial encounter (principal); Y92.9 Unspecified place or not applicable; Y93.9 Activity, unspecified; Z79.4 Long term (current) use of insulin; Z79.82 Long term (current) use of aspirin; Z79.01 Long term (current) use of anticoagulants; Z79.899 Other long term (current) drug therapy

== ENCOUNTER 2020-08-11 13:25 | Emergency (ER) | payer MEDICARE ==
[~2020-08-11] VITALS: Ht 167.6 cm; Wt 79.1 kg
--- OUTSIDE RECORDS SUMMARY | 2020-08-11 13:38 | CCD ---
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 If you continue you may have access to information: Regarding HIV / AIDS; Provided by facilities licensed or operated by the [facility] Office of Mental Health; or Provided by the [facility] Office for People With Developmental Disabilities. If such information is present, then the following [facility] mandated warning applies: This information has been [...] law may result in a fine or fdc sentence or both. A general authorization for the release of medical or other information is NOT sufficient authorization for further disc losure. Allergies and Adverse Reactions Type Description Substance Reaction Status Data Source(s ) Drug Class NO KNOWN ALLERGIES NO KNOWN ALLERGIES [facility] No Known Drug Allergies No Known Drug Allergies No Known Drug Aller gies active NETSATLANTA ([facility] ) Encounters Encounter Providers Location Date Indications Data Source(s ) Outpatient Attender: Yosef Barrera MD 03/16/2022 12:00:00 AM ED [facility] Unknown [address] [facility] [address] 08/05/2020 12:00:00 AM EST eCW1 ([facility]) Out[place] [address] [facility] [address] 08/05/2020 12:00:00 AM EST eCW1 ([facility]) Outpatient [address] [facility] [address] 07/16/2020 12:00:00 AM EST eCW1 ([facility]) [place] [address] [facility] [address] 06/27/2020 12:00:00 AM EST eCW1 ([facility]) [place] [address] [facility] [address] 06/20/2020 12:00:00 AM EST eCW1 ([facility]) Unknown [address] [facility] [address] 05/29/2020 12:00:00 AM EST eCW1 ([facility]) Unknown [address] [facility] [address] 05/29/2020 12:00:00 AM EST eCW1 ([facility]) Outpatient [address] [facility] [address] 05/20/2020 12:00:00 AM EST eCW1 ([facility]) [place] [address] [facility] [address] 05/20/2020 12:00:00 AM EST eCW1 ([facility]) Out[place] [address] [address] 04/05/2020 12:00:00 AM EDT eCW1 ([facility]) Out[place] [address] [address] 03/26/2020 12:00:00 AM EDT eCW1 ([facility]) Unknown [address] [facility] [address] 03/26/2020 12:00:00 AM EDT eCW1 ([facility]) Office Visit Attender: Andi Jones MD Main office - [facility] 03/25/2020 01:15:00 PM EDT MEDENT ([facility]) Outpatient Attender: Yosef Barrera MD [id number] 03/11/2020 12:00:00 AM EDT Discitis, unspecified, lumbar [facility] Discitis, unspecified, lumbar region Outpatient Referrer: Yosef Barrera MD 03/11/2020 12:00:00 AM EDT Discitis, unspecified, lumbar region [facility] Discitis, unspecified, lumbar region Outpatient Attender: Marii Calderon/Hal/Anthony/ Abbey 01/15/2020 03:15:00 PM EDT MEDENT ([facility] [place] [address] [facility] [address] 01/09/2020 12:00:00 AM EDT eCW1 ([facility]) [place] [address] [facility] [address] 01/09/2020 12:00:00 AM EDT eCW1 [facility]) Outpatient Attender: Andi Jones MD Main office [facility] 12/25/2019 09:00:00 AM EDT MEDENT ([facility], ) [facility] [address] [facility] [address] 12/19/2019 12:00:00 AM EDT eCW1 ([facility]) Unknown [address] [facility] [address] 12/12/2019 12:00:00 AM EDT eCW1 ([facility]) Outpatient Attender: HENRY CLARKE MD 12/12/2019 12:00:0 0 AM EDT [facility] Unknown [address] [facility] [address] 12/11/2019 12:00:00 AM EDT eCW1 ([facility]) Unknown [address] [facility] [address] 12/11/2019 12:00:00 AM EDT eCW1 ([facility]) Unknown [address] [facility] [address] 12/08/2019 12:00:00 AM EDT eCW1 ([facility]) Unknown [address] [facility] [address] 12/08/2019 12:00:00 AM EDT eCW1 [facility]) Outpatient Referrer: DEMETRIUS PERSON MD 12/07/2019 06:08:00 AM EDT [facility] Outpatient Attender: Bill Winter MD 12/06/2019 12:00:00 A M EDT [facility] Unknown [address] [facility] [address] 12/04/2019 12:00:00 AM EDT [facility]CW1 [facility]) 11/26/2019 01:00:00 AM EDT - 020 09:15:59 AM EDT NETSMART ([facility]) Outpatient Attender: Bill Winter MD 11/22/2019 12:00:00 A M [facility] Urology [address] [place] [address], [facility] [address] 11/16/2019 12:00:00 AM EDT eCW1 ([facility]) [facility] Center [address] [place] [address] 10/19/2019 12:00:00 AM EDT eCW1 ([facility]) [facility] [address] [facility] [place] [address] 10/17/2019 12:00:00 AM EDT eCW1 ([facility]) [facility] Urology [address] [place] [address] [place] [address] 09/15/2019 12:00:00 AM EDT eCW1 ([facility]) [facility]rology [address] [place] [address] [place] [address] 09/13/2019 12:00:00 AM EDT eCW1 ([facility]) Outpatient Referrer: Yosef Barrera MD 09/08/2019 12:00:00 AM EDT Discitis, unspecified, lumbar region [facility] Discitis, unspecified, lumbar region Outpatient Attender: Yosef Barrera MD [id number] 09/08/2019 12:00:00 AM [facility] Outpatient Attender: Yosef Barrera MD 09/04/2019 12:00:00 AM [facility] [address] [facility] [address] 08/23/2019 12:00:00 AM EST eCW1 ([facility]) [facility] C ENTER 08/14/2019 12:00:00 AM EST eCW1 ([facility]) Outpatient Referrer: DEMETRIUS PERSON MD 07/25/2019 12:16:00 PM EST [facility] Outpatient Attender: BENJAMIN Hurtadoferrer: DONNA VELEZ [id number] 07/24/2019 12:00:00 AM EST - 07/24/2019 11:56:58 AM EST [facility] Outpatient Attender: Yosef Barrera MD [id number] 07/21/2019 12:00:00 AM E [facility] C ENTER 07/21/2019 12:00:00 AM EST eCW1 ([facility]) Outpatient Attender: Christopher Martinez MDReferrer: Christopher Martinez MDConsultant: Christopher Martinez MD 07/18/2019 01:14:0 0 PM EST - 07/18/2019 01:24:00 PM EST [facility] C ENTER 07/13/2019 12:00:00 AM EST eCW1 ([facility]) Outpatient Attender: Christopher Martinez MDReferrer: Christopher Martinez MDConsultant: Christopher Martinez MD 07/10/2019 10:52:0 0 AM EST - 07/10/2019 11:02:00 AM EST [facility] Outpatient Attender: BENJAMIN Hurtadoferrer: DONNA VELEZ [id number] 07/10/2019 12:00:00 AM EST - 07/10/2019 02:15:44 PM EST Extradural and subdural abscess, unspecified [facility] Extradural and subdural abscess, unspeci fied [facility] C ENTER 07/04/2019 12:00:00 AM EST eCW1 ([facility]) Outpatient Attender: Christopher Martinez MDReferrer: Christopher Martinez MDConsultant: Christopher Martinez MD 07/03/2019 04:12:0 0 PM EST - 07/03/2019 04:22:00 PM [facility] Outpatient Attender: Bill Winter MD 06/30/2019 09:29:00 A M [facility] Outpatient Referrer: DEMETRIUS PERSON MD 06/30/2019 08:20:00 AM EST [facility] 06/30/2019 12: 00:00 AM EST eCW1 ([facility]) Outpatient Attender: Christopher Martinez MDReferrer: Christopher Martinez MDConsultant: Christopher Martinez MD 06/29/2019 03:38:0 0 PM EST - 06/29/2019 03:48:00 PM [facility] Outpatient Attender: Christopher Martinez MDReferrer: Christopher Martinez MDConsultant: Christopher Martinez MD 06/26/2019 02:46:0 0 PM EST - 06/26/2019 02:56:00 PM [facility] Outpatient Referrer: Cleo GALLAGHER 06/23/2019 12 :00:00 AM EST Extradural and subdural abscess, unspecified [facility] Extradural and subdural abscess, unspeci fied Outpatient Attender: Yosef Barrera MD [id number] 06/23/2019 12:00:00 AM E [facility] Outpatient Attender: Christopher Martinez MDReferrer: Christopher Martinez MDConsultant: Christopher Martinez MD 06/19/2019 03:51:0 0 PM EST - 06/19/2019 04:01:00 PM [facility] 06/16/2019 12:00:00 AM EST - 020 11:07:01 AM EST [facility] Inpatient Attender: Chriss Chirinos tatyana: DONAN OLIVOAttender: DIONY KEITA MDAttender: MIMI OSPINA MDAdmitter: DIONY KEITA MDReferrer: DIONY KEITA MD [id number] 06/10/2019 12:00:00 AM EST - 06/15/2019 12:00:00 AM ES T Discitis, unspecified, lumbar region [facility] Discitis, unspecified, lumbar region Patient discharged. Immunizations Vaccine Date Status Description Data Source(s) New in 2011. IIV4 03/11/2020 09:16:00 AM EDT completed eCW1 ([facility]) New in 2011. IIV4 03/11/2020 09:16:00 AM EDT completed eCW1 ([facility]) New in 2011. IIV4 03/11/2020 09:16:00 AM EDT completed eCW1 ([facility]) New in 2011. IIV4 03/11/2020 09:16:00 AM EDT completed eCW1 ([facility]) New in 2011. IIV4 03/11/2020 09:16:00 AM EDT completed eCW1 ([facility]) New in 2011. IIV4 06/14/2019 12:00:00 AM EST completed In fluenza Quad IM Pres Free (0.5 mL dose) 06/14/2019 [facility] Medications Medication Brand Name Start Date Product Form Dose Route Admi nistrative Instructions Pharmacy Instructions Status Indications Reaction Description Data Source(s) 100 mcg/0.5 mL 07/15/2020 12:00:00 AM EST suspension 0 INJECT BY [facility] (FIRST DOSE) INJECT BY [facility] (FIRST DOSE) SOLD: 07/15/2020 [facility] [...] suspended Bactrim DS 800-160 MG eCW1 ( [facility]) Sulfamethoxazole 800 MG / Trimethoprim 1 60 MG Oral Tablet [Bactrim] Bactrim DS 800-160 MG Bactrim DS 800-160 MG 04/05/2020 12:00:00 AM EDT 1.0 {table t} active Bactrim DS 800-160 MG eCW1 ( [facility]) Sulfamethoxazole 800 MG / Trimethoprim 1 60 MG Oral Tablet [Bactrim] Bactrim DS 800-160 MG Bactrim DS 800-160 MG 04/05/2020 12:00:00 AM EDT 1.0 {table t} active Bactrim DS 800-160 MG eCW1 ( [facility]) Sulfamethoxazole 800 MG / Trimethoprim 1 60 MG Oral Tablet [Bactrim] Bactrim DS 800-160 MG Bactrim DS 800-160 MG 04/05/2020 12:00:00 AM EDT 1.0 {table t} suspended Bactrim DS 800-160 MG eCW1 ( [facility]) Sulfamethoxazole 800 MG / Trimethoprim 1 60 MG Oral Tablet [Bactrim] Bactrim DS 800-160 MG Bactrim DS 800-160 MG 04/05/2020 12:00:00 AM EDT 1.0 {table t} active Bactrim DS 800-160 MG eCW1 ( [facility]) Sulfamethoxazole 800 MG / Trimethoprim 1 60 MG Oral Tablet [Bactrim] Bactrim DS 800-160 MG Bactrim DS 800-160 MG 04/05/2020 12:00:00 AM EDT 1.0 {table t} suspended Bactrim DS 800-160 MG eCW1 ( [facility]) Sulfamethoxazole 800 MG / Trimethoprim 1 60 MG Oral Tablet [Bactrim] Bactrim DS 800-160 MG Bactrim DS 800-160 MG 04/05/2020 12:00:00 AM EDT 1.0 {table t} suspended Bactrim DS 800-160 MG eCW1 ( [facility]) Sulfamethoxazole 800 MG / Trimethoprim 1 60 MG Oral Tablet [Bactrim] Bactrim DS 800-160 MG Bactrim DS 800-160 MG 04/05/2020 12:00:00 AM EDT 1.0 {table t} active Bactrim DS 800-160 MG eCW1 ( [facility]) Sulfamethoxazole 800 MG / Trimethoprim 1 60 MG Oral Tablet [Bactrim] Bactrim DS 800-160 MG Bactrim DS 800-160 MG 04/05/2020 12:00:00 AM EDT 1.0 {table t} active Bactrim DS 800-160 MG eCW1 ( [facility]) Sulfamethoxazole 800 MG / Trimethoprim 1 60 MG Oral Tablet [Bactrim] Bactrim DS 800-160 MG Bactrim DS 800-160 MG 04/05/2020 12:00:00 AM EDT 1.0 {table t} active Bactrim DS 800-160 MG eCW1 ( [facility]) 100 mg 03/11/2020 12:00:00 AM EDT tablet [...] Oral Tablet (PROSCAR) 03/07/2020 12:00:00 AM EDT [facility] 20 mg 02/27/2020 12:00:00 AM EDT [...] {tablet} active Pr lian 5 MG eCW1 ([facility]) Finasteride 5 MG Oral Tablet [Proscar] Proscar 5 MG Proscar 5 MG 01/09/2020 12:00:00 AM EDT 1.0 {tablet} active Pr lian 5 MG eCW1 ([facility]) Finasteride 5 MG Oral Tablet FINASTERIDE 01/09/2020 12:00:00 AM EDT ta blet 30 TAKE ONE TABLET BY MOUTH ONCE DAILY TAKE ONE TABLET BY MOUTH ONCE DAILY SOLD: 03/08/2020 [facility] Finasteride 5 MG Oral Tablet [Proscar] Proscar 5 MG Proscar 5 MG 01/09/2020 12:00:00 AM EDT 1.0 {tablet} active Pr lian 5 MG eCW1 ([facility]) Finasteride 5 MG Oral Tablet FINASTERIDE 01/09/2020 12:00:00 AM EDT ta blet 30 TAKE ONE TABLET BY MOUTH ONCE DAILY TAKE ONE TABLET BY MOUTH ONCE DAILY SOLD: 06/02/2020 [facility] Finasteride 5 MG Oral Tablet [Proscar] Proscar 5 MG Proscar 5 MG 01/09/2020 12:00:00 AM EDT 1.0 {tablet} active Pr lian 5 MG eCW1 ([facility]) Finasteride 5 MG Oral Tablet [Proscar] Proscar 5 MG Proscar 5 MG 01/09/2020 12:00:00 AM EDT 1.0 {tablet} active Pr lian 5 MG eCW1 ([facility]) Finasteride 5 MG Oral Tablet [Proscar] Proscar 5 MG Proscar 5 MG 01/09/2020 12:00:00 AM EDT 1.0 {tablet} active Pr lian 5 MG eCW1 ([facility]) Finasteride 5 MG Oral Tablet [Proscar] Proscar 5 MG Proscar 5 MG 01/09/2020 12:00:00 AM EDT 1.0 {tablet} active Pr lian 5 MG eCW1 ([facility]) Finasteride 5 MG Oral Tablet FINASTERIDE 01/09/2020 12:00:00 AM EDT ta blet 30 TAKE ONE TABLET BY MOUTH ONCE DAILY TAKE ONE TABLET BY MOUTH ONCE DAILY SOLD: 01/10/2020 [facility] Finasteride 5 MG Oral Tablet [Proscar] Proscar 5 MG Proscar 5 MG 01/09/2020 12:00:00 AM EDT 1.0 {tablet} active Pr lian 5 MG eCW1 ([facility]) Finasteride 5 MG Oral Tablet [Proscar] Proscar 5 MG Proscar 5 MG 01/09/2020 12:00:00 AM EDT 1.0 {tablet} active Pr lian 5 MG eCW1 ([facility]) Finasteride 5 MG Oral Tablet FINASTERIDE 01/09/2020 12:00:00 AM EDT ta blet 30 TAKE ONE TABLET BY MOUTH ONCE DAILY TAKE ONE TABLET BY MOUTH ONCE DAILY SOLD: 05/07/2020 [facility] Finasteride 5 MG Oral Tablet [Proscar] Proscar 5 MG Proscar 5 MG 01/09/2020 12:00:00 AM EDT 1.0 {tablet} active Pr lian 5 MG eCW1 ([facility]) Finasteride 5 MG Oral Tablet FINASTERIDE 01/09/2020 [...] {tablet} active Pr lian 5 MG eCW1 ([facility]) Finasteride 5 MG Oral Tablet FINASTERIDE 01/09/2020 12:00:00 AM EDT ta blet 30 TAKE ONE TABLET BY MOUTH ONCE DAILY TAKE ONE TABLET BY MOUTH ONCE DAILY SOLD: 02/09/2020 [facility] Finasteride 5 MG Oral Tablet [Proscar] Proscar 5 MG Proscar 5 MG 01/09/2020 12:00:00 AM EDT 1.0 {tablet} active Pr lian 5 MG eCW1 ([facility]) Finasteride 5 MG Oral Tablet [Proscar] Proscar 5 MG Proscar 5 MG 01/09/2020 12:00:00 AM EDT 1.0 {tablet} active Pr lian 5 MG eCW1 ([facility]) Finasteride 5 MG Oral Tablet [Proscar] Proscar 5 MG Proscar 5 MG 01/09/2020 12:00:00 AM EDT 1.0 {tablet} active Pr lian 5 MG eCW1 ([facility]) atorvastatin 40 MG Oral Tablet ATORVASTATIN CALCIUM [...] Oral active Take 40 mg by mouth [facility] 2.5 mg 12/20/2019 12:00:00 AM EDT [...] 2.5 mg by mouth Two Times Daily [facility] 10 mg 12/18/2019 12:00:00 AM [...] Tablet (NORVASC) 12/18/2019 12:00:00 AM EDT active [facility] Cephalexin 250 MG Cephalexin 12/15/2019 01:00:00 AM EDT completed NETSMART ([facility] ) 250 mg 12/15/2019 12:00:00 AM EDT capsule 40 TAKE ONE CAPSULE BY MOUTH FOUR TIMES A DAY FOR 10 DAYS TAKE ONE CAPSULE BY MOUTH FOUR TIMES A DAY FOR 10 DAYS SOLD: 12/15/2019 [facility] Tamsulosin HCl 0.4 MG Tamsulosin HCl 11/26/2019 01:00:00 AM EDT 0.4 {mg} completed NETSMART ([facility]) MetFORMIN HCl 1000 MG MetFORMIN HCl 11/26/2019 01:00:00 AM EDT completed NETSMART ([facility]) Pravastatin Sodium 20 MG Pravastatin Sodium 11/26/2019 01:00:00 AM EDT completed NETSMART ([facility]) Atorvastatin Calcium 40 MG Atorvastatin Calcium 11/26/2019 01:00:00 A M EDT completed NETSMART ( [facility]) Losartan Potassium-HCTZ 100-12.5 MG Losartan Potassium-HCTZ 11/26/2019 01:00:00 AM EDT completed NETSMAR T ([facility]) Eliquis 2.5 MG Eliquis 11/26/2019 01:00:00 AM EDT 0 {mg} completed NETSMART ([facility] ) Insulin Detemir 100 UNIT/ML Insulin Detemir 11/26/2019 01:00:00 AM EDT 8.0 {unit} completed NETSMART ([facility]) B12 Folate 800-800 MCG B12 Folate 11/26/2019 01:00:00 AM EDT completed NETSMART ([facility]) Daily Multivitamin Daily Multivitamin 11/26/2019 01:00:00 AM EDT completed NETSMART ([facility]) Omeprazole 20 MG Omeprazole 11/26/2019 01:00:00 AM EDT completed NETSMART ([facility] ) Iron (Ferrous Sulfate) 142 (45 Fe) MG Iron (Ferrous Sulfate) 11/26/2019 01:00:00 AM EDT completed NETSMA RT ([facility]) 40 mg 11/23/2019 12:00:00 AM [...] A M EDT 0 {mg} completed NETSMART ([facility]) 20 mg 11/13/2019 12:00:00 AM [...] EST suspended Kefle x 500 MG eCW1 ([facility]) Cephalexin 500 MG Oral Capsule [Keflex] Keflex 500 MG Keflex 500 MG 08/23/2019 12:00:00 AM EST suspended Kefle x 500 MG eCW1 ([facility]) Cephalexin 500 MG Oral Capsule [Keflex] Keflex 500 MG Keflex 500 MG 08/23/2019 12:00:00 AM EST suspended Kefle x 500 MG eCW1 ([facility]) Cephalexin 500 MG Oral Capsule [Keflex] Keflex 500 MG Keflex 500 MG 08/23/2019 12:00:00 AM EST active 1 capsul e 1 hour prior to your cystoscopy eCW1 ([facility]) Cephalexin 500 MG Oral Capsule [Keflex] Keflex 500 MG Keflex 500 MG 08/23/2019 12:00:00 AM EST suspended Kefle x 500 MG eCW1 ([facility]) Cephalexin 500 MG Oral Capsule [Keflex] Keflex 500 MG Keflex 500 MG 08/23/2019 12:00:00 AM EST suspended Kefle x 500 MG eCW1 ([facility]) Cephalexin 500 MG Oral Capsule [Keflex] Keflex 500 MG Keflex 500 MG 08/23/2019 12:00:00 AM EST suspended Kefle x 500 MG eCW1 ([facility]) Cephalexin 500 MG Oral Capsule [Keflex] Keflex 500 MG Keflex 500 MG 08/23/2019 12:00:00 AM EST active Keflex 5 00 MG eCW1 ([facility]) Cephalexin 500 MG Oral Capsule [Keflex] Keflex 500 MG Keflex 500 MG 08/23/2019 12:00:00 AM EST suspended Kefle x 500 MG eCW1 ([facility]) Cephalexin 500 MG Oral Capsule [Keflex] Keflex 500 MG Keflex 500 MG 08/23/2019 12:00:00 AM EST suspended Kefle x 500 MG eCW1 ([facility]) Cephalexin 500 MG Oral Capsule [Keflex] Keflex 500 MG Keflex 500 MG 08/23/2019 12:00:00 AM EST suspended 1 capsule 1 hour prior to your cystoscopy eCW1 ([facility]) Cephalexin 500 MG Oral Capsule [Keflex] Keflex 500 MG Keflex 500 MG 08/23/2019 12:00:00 AM EST active Keflex 5 00 MG eCW1 ([facility]) Cephalexin 500 MG Oral Capsule [Keflex] Keflex 500 MG Keflex 500 MG 08/23/2019 12:00:00 AM EST suspended Kefle x 500 MG eCW1 ([facility]) Cephalexin 500 MG Oral Capsule [Keflex] Keflex 500 MG Keflex 500 MG 08/23/2019 12:00:00 AM EST active Keflex 5 00 MG eCW1 ([facility]) Cephalexin 500 MG Oral Capsule [Keflex] Keflex 500 MG Keflex 500 MG 08/23/2019 12:00:00 AM EST suspended Kefle x 500 MG eCW1 ([facility]) Cephalexin 500 MG Oral Capsule [Keflex] Keflex 500 MG Keflex 500 MG 08/23/2019 12:00:00 AM EST suspended Kefle x 500 MG eCW1 ([facility]) Cephalexin 500 MG Oral Capsule [Keflex] Keflex 500 MG Keflex 500 MG 08/23/2019 12:00:00 AM EST active Keflex 5 00 MG eCW1 ([facility]) Cephalexin 500 MG Oral Capsule [Keflex] Keflex 500 MG Keflex 500 MG 08/23/2019 12:00:00 AM EST active Keflex 5 00 MG eCW1 ([facility]) Cephalexin 500 MG Oral Capsule [Keflex] Keflex 500 MG Keflex 500 MG 08/23/2019 12:00:00 AM EST suspended Kefle x 500 MG eCW1 ([facility]) Cephalexin 500 MG Oral Capsule [Keflex] Keflex 500 MG Keflex 500 MG 08/23/2019 12:00:00 AM EST active Keflex 5 00 MG eCW1 ([facility]) Cephalexin 500 MG Oral Capsule [Keflex] Keflex 500 MG Keflex 500 MG 08/23/2019 12:00:00 AM EST suspended Kefle x 500 MG eCW1 ([facility]) Cephalexin 500 MG Oral Capsule [Keflex] Keflex 500 MG Keflex 500 MG 08/23/2019 12:00:00 AM EST suspended Kefle x 500 MG eCW1 ([facility]) 20 mg 08/21/2019 12:00:00 AM EST capsule,delayed [...] TABLET BY MOUTH EVERY DAY SOLD: 07/25/2019 [facility] Tamsulosin hydrochloride 0.4 MG Oral Cap delphine Tamsulosin HCl 0.4 MG Oral Capsule (FLOMAX) Tamsulosin HCl 0.4 MG Oral Capsule (FLOMAX) 07/17/2019 12:00 :00 AM EST 0.4 mg Oral aborted Take 1 capsule b y mouth daily [facility] 0.4 mg 07/17/2019 12:00:00 AM EST capsule 30 TAKE ONE CAPSULE BY MOUTH EVERY DAY TAKE ONE CAPSULE BY MOUTH EVERY DAY SOLD: 07/18/2019 [employer] Misc. Devices (DURABLE MEDICAL EQUIPMENT SEE SIG) XX [facility] [facility] [id number] 07/03/2019 12:00:00 AM EST aborted Use as directed. Wheel chair Dx: Back pain [facility] Ibuprofen 200 MG Ibuprofen 06/26/2019 12:00:00 AM EST completed NETSMART ([facility]) Misc. Devices (DURABLE MEDICAL EQUIPMENT SEE SIG) XX [facility] 97 [id number] 06/23/2019 12:00:00 AM EST aborted Use as directed. Urinary leg bag Dx: R33.9 [facility] Tylenol Extra Strength 500 MG Tylenol Extra Strength 06/20/2019 12:00:00 AM EST 0 {tablet} completed NET SMART ([facility]) POLYETHYLENE GLYCOL 3350 142 MG/ML Oral Solution Polyethylene Glycol 3350 Oral Packet (MIRALAX) Polyethylene Glycol 3350 Oral Packet (MIRALAX) 019 12:00:00 AM EST 17 g Oral aborted Take 1 packet by mouth daily Please substitute bottle for packets, if packets are unavailable. [facility] Tamsulosin hydrochloride 0.4 MG Oral Cap delphine Tamsulosin HCl 0.4 MG Oral Capsule (FLOMAX) Tamsulosin HCl 0.4 MG Oral Capsule (FLOMAX) 06/16/2019 12:00 :00 AM EST 0.4 mg Oral aborted Take 1 capsule b y mouth daily [facility] Lantus SoloStar 100 UNIT/ML Lantus SoloStar 06/16/2019 12:00:00 AM EST 8.0 {unit} completed NETSMART ([facility]) MetFORMIN HCl 1000 MG MetFORMIN HCl 06/16/2019 12:00:00 AM EST completed NETSMART ([facility]) Senna 8.6 MG Senna 06/16/2019 12:00:00 AM EST 2.0 {tablet} completed NETSMART ([facility]) 3 ML heparin sodium, porcine 100 UNT/ML Prefilled Syringe Heparin Lock Flush 100 UNIT/ML Intravenous Solution Heparin Lock Flush 100 UNIT/ML Intraveno us Solution 06/16/2019 12:00:00 AM EST 500 U Intracatheter aborted Encounter for long-term (current) use of antibioticsDiscitis of lumbar regionEpidural abscess 5 mLs by Intracatheter route as needed (For after IV infusion and as needed) [facility] Encounter for long-term (current) use [...] into the vein every 24 (twenty-four) hours [facility] Encounter for long-term (current) use of antibiotics Discitis of lumbar region Epidural abscess Vancomycin HCl 1.5 GM Intravenous Solution Reconstitut ed (VANCOCIN) [id number] 06/16/2019 12:00:00 AM EST 1500 mg Intravenous a borted Encounter for long-term (current) use of antibioticsDiscitis of lumbar regionEpidural abscess Inject 1.5 g into the vein every 24 (twenty-four) hour s [facility] Encounter for long-term (current) use of antibiotics Discitis of lumbar region Epidural abscess Normal Saline Flush 0.9 % Intravenous Solution [id number] 06/16/2019 12:00:00 AM EST 10 mL Intravenous aborted Encounte r for long-term (current) use of antibioticsDiscitis of lumbar regionEpidural abscess I nject 10 mLs into the vein as needed (For before and after infusion and prn) [facility] Encounter for long-term (current) use of antibiotics Discitis of lumbar region Epidural abscess Tamsulosin hydrochloride 0.4 MG Oral Cap delphine Tamsulosin HCl 0.4 MG Oral Capsule (FLOMAX) Tamsulosin HCl 0.4 MG Oral Capsule (FLOMAX) 06/16/2019 12:00 :00 AM EST 0.4 mg Oral aborted Take 1 capsule b y mouth daily [facility] POLYETHYLENE GLYCOL 3350 142 MG/ML Oral Solution Polyethylene Glycol 3350 Oral Packet (MIRALAX) Polyethylene Glycol 3350 Oral Packet (MIRALAX) 019 12:00:00 AM EST 17 g Oral active Take 1 packet by mouth daily Please substitute bottle for packets, if packets are unavailable. [facility] Tamsulosin hydrochloride 0.4 MG Oral Cap delphine Tamsulosin HCl 0.4 MG Oral Capsule (FLOMAX) Tamsulosin HCl 0.4 MG Oral Capsule (FLOMAX) 06/16/2019 12:00 :00 AM EST 0.4 mg Oral active Take 1 capsule b y mouth daily [facility] Ferrous Sulfate 325 (65 Fe) MG Ferrous Sulfate 06/16/2019 12:00:00 AM EST completed NETSMART ([facility]) Losartan Potassium 100 MG Losartan Potassium 06/16/2019 12:00:00 AM EST completed NETSMART ([facility]) Tamsulosin HCl 0.4 MG Tamsulosin HCl 06/16/2019 12:00:00 AM EST completed NETSMART ([facility]) Omeprazole 20 MG Omeprazole 06/16/2019 12:00:00 AM EST completed NETSMART ([facility] ) Pravastatin Sodium 20 MG Pravastatin Sodium 06/16/2019 12:00:00 AM EST completed NETSMART ([facility]) POLYETHYLENE GLYCOL 3350 142 MG/ML Oral Solution Polyethylene Glycol 3350 Oral Packet (MIRALAX) Polyethylene Glycol 3350 Oral Packet (MIRALAX) 019 12:00:00 AM EST 17 g Oral aborted Take 1 packet by mouth daily Please substitute bottle for packets, if packets are unavailable. [facility] Heparin Lock Flush 100 UNIT/ML Heparin Lock Flush 06/16/2019 12:00: 00 AM EST 5.0 {ml} completed NETSMART ([facility]) CefTRIAXone Sodium 2 GM CefTRIAXone Sodium 06/16/2019 12:00:00 AM EST completed NETSMART ([facility]) Normal Saline Flush 0.9 % Normal Saline Flush 06/16/2019 12:00:00 A M EST 10.0 {ml} completed NETSMART ([facility]) Vancomycin HCl 1.5 GM Vancomycin HCl 06/16/2019 12:00:00 AM EST completed NETSMART ([facility]) Acetaminophen 325 MG Oral Tablet Acetaminophen 325 MG Oral T ablet 06/15/2019 12:00:00 AM EST 975 mg Oral active Take 3 tablets by mouth every 8 (eight) hours [facility] sennosides, LONG-TERM 8.6 MG Oral Tablet Senna 8.6 MG Oral T ablet Senna 8.6 MG Oral Tablet 06/15/2019 12:00:00 AM EST 2 {tbl} Oral aborted Take 2 tablets by mouth nightly [facility] Ceftriaxone 2000 MG Injection cefTRIAXone (ROCEPHIN) i nfusion 2 g cefTRIAXone (ROCEPHIN) infusion 2 g 06/15/2019 12:00:00 AM EST 2 g Intraveno us completed Inject 2 g into the vein every 2 4 (twenty-four) hours [facility] Vancomycin HCl 1500 MG/300ML Intravenous Solution (VANCOCIN) [id number] 06/15/2019 12:00:00 AM EST 1500 mg Intravenous aborted Inject 300 mLs into the vein every 24 (twenty-four) hours [facility] ferrous sulfate 325 MG Oral Tablet Ferrous Sulfate 325 (65 Fe) MG Oral Tablet Ferrous Sulfate 325 (65 Fe) MG Oral Tablet 06/15/2019 12:00:00 AM EST 325 mg Oral active Take 1 tablet by zaira th daily with [facility] sennosides, LONG-TERM 8.6 MG Oral Tablet Senna 8.6 MG Oral T ablet Senna 8.6 MG Oral Tablet 06/15/2019 12:00:00 AM EST 2 {tbl} Oral aborted Take 2 tablets by mouth nightly [facility] sennosides, LONG-TERM 8.6 MG Oral Tablet Senna 8.6 MG Oral T ablet Senna 8.6 MG Oral Tablet 06/15/2019 12:00:00 AM EST 2 {tbl} [facility] MG Oral Tablet Ferrous Sulfate 325 (65 Fe) MG Oral Tablet Ferrous Sulfate 325 (65 Fe) MG Oral Tablet 06/15/2019 12:00:00 AM EST 325 mg Oral aborted Take 1 tablet by zaira daily with [facility] ferrous sulfate 325 MG Oral Tablet Ferrous Sulfate 325 (65 Fe) MG Oral Tablet Ferrous Sulfate 325 (65 Fe) MG Oral Tablet 06/15/2019 12:00:00 AM EST 325 mg Oral aborted Take 1 tablet by zaira daily with [facility] ferrous sulfate 325 MG Oral Tablet Ferrous Sulfate 325 (65 Fe) MG Oral Tablet Ferrous Sulfate 325 (65 Fe) MG Oral Tablet 06/15/2019 12:00:00 AM EST 325 mg Oral aborted Take 1 tablet by zaira daily with [facility] influenza vac split quad (FLUARIX) injection 6 months and ol tatyana 0.5 mL [id number] 06/14/2019 07:11:50 PM EST 0.5 mL Intramuscular complet ed 0.5 mL, Intramuscular, Give Now, Starting Wed06/14/19 at 1911, For 1 dose [facility] Medication administered onsite sodium phosphate 6 mmol/100 mL IVPB 06/14/2019 12:00:00 PM EST 6 mmol Intravenous completed 6 mmol, Intra venous, at 50 mL/hr, Every 2 hours, First dose (after last reorder) on Wed06/14/19 at 1200, For 2 doses
Slower infusion rate (e.g. over 4 to 6 hours) are recommended in patients with renal impairment and/or less severe hypophosphatemia.
[facility] Medication administered onsite magnesium sulfate in dextrose 5 % infusion (premix) 8 mEq [id number] 06/14/2019 11:00:00 AM EST 8 meq Intravenous completed 8 mEq, Intravenous, Administer over 60 Minutes, Every 1 hour, First dose on Wed06/14/19 at 1100, For 2 doses
each 8 mEq equivalent to 1 gm
[facility] Medication administered onsite Tamsulosin hydrochloride 0.4 MG Oral Capsule tamsulosi n (FLOMAX) capsule 0.4 mg tamsulosin (FLOMAX) capsule 0.4 mg 06/14/2019 11:00:00 AM EST 0.4 mg Oral active 0.4 mg, Oral, Daily Standard, First dose on Wed06/14/19 at 1100, For 30 days
Swallow whole. Do not crush, chew or open.
[facility] Medication administered onsite Magnesium Oxide 400 MG Oral Tablet Magnesium Oxide (MA G-OX) tablet 400 mg Magnesium Oxide (MAG-OX) tablet 400 mg 06/14/2019 10:30:00 AM EST 4 00 mg Oral completed 400 mg, Oral, Once, Wed08/15/18 at 1030, For 1 dose [facility] Medication administered onsite potassium phosphate [...] mEq), and potassium 45 mg (1.1 mEq)
[facility] Medication administered onsite Hydralazine Hydrochloride [...] minutes.TO BE GIVEN ONLY IF S BP>170
[facility] Medication administered onsite sodium phosphate 6 mmol/100 mL IVPB 06/13/2019 12:00:00 PM EST 6 mmol Intravenous completed 6 mmol, Intra venous, at 50 mL/hr, Every 2 hours, First dose on Wed06/13/19 at 1200, For 2 doses
Slower infusion rate (e.g. over 4 to 6 hours) are recommended in patients with renal impairment and/or less severe hypophosphatemia.
[facility] Medication administered onsite Bisacodyl 10 MG Rectal Suppository bisacodyl (DULCOLAX ) suppository 10 mg bisacodyl (DULCOLAX) suppository 10 mg 06/13/2019 10:30:00 AM EST 10 mg Rectal completed 10 mg, Rectal, Once, Wed06/13/19 at 1030, For 1 dose [facility] Medication administered onsite Bisacodyl 10 MG Rectal Suppository bisacodyl (DULCOLAX ) suppository 10 mg bisacodyl (DULCOLAX) suppository 10 mg 06/13/2019 10:27:21 AM EST 10 mg Rectal active 10 mg, Rectal, Daily PRN, Constipation, Starting Wed06/13/19 at 1027, For 30 days [facility] Medication administered onsite sodium chloride [...] mL Heparin 10 units/mL to lock.Reference Policy [facility]-[address] Central Line Policy.
[Order 2 End] [Order 3 Start] Name: sodium chloride (preservative free) 0.9 % flush 10 mL Signed Summary: 10 mL, Intravenous, Every 12 hours, First dose on Wed06/13/19 at 1030, For 30 days
WHEN NOT IN USE - Verify blood return before use. Flush with 10 mL of Sodium Chloride 0.9 % and 2 mL Heparin 10 units/mL.Reference Policy [address] Central Line Policy.
[Order 3 End] [Order 4 Start] Name: heparin lock flush 10 UNIT/ML injection 20 Units Signed Summary: 20 Units, Intravenous, Every 12 hours, First dose on Wed06/13/19 at 1030, For 30 days
WHEN NOT IN USE - Verify blood return before use. Flush with 10 mL of Sodium Chloride 0.9 % and 2 mL Heparin 10 units/mL.Reference Policy [address] Central Line Policy.
[Order 4 End] [facility] Medication administered onsite lidocaine (XYLOCAINE) 1 % injection 5 mL [id number] 06/13/2019 10:26:31 AM EST 5 mL Subcutaneous active 5 m L, Subcutaneous, Once PRN, for PICC insertion, Starting Wed06/13/19 at 1026, For 30 days [facility] Medication administered onsite Ceftriaxone 2000 MG Injection cefTRIAXone (ROCEPHIN) I VPB (premix) 2 g cefTRIAXone (ROCEPHIN) IVPB (premix) 2 g 06/12/2019 06:30:00 PM EST 2 g Intravenous active 2 g, Intraven ous, at 100 mL/hr, Every 24 hours, First dose on Wed06/12/19 at 1830, For 7 days
Discouraged Uses: Empiric treatment of post-surgical meningitis (ceftazidime preferred)
[facility] Medication administered onsite Losartan Potassium 50 MG Oral Tablet losartan (COZAAR) tablet 50 mg losartan (COZAAR) tablet 50 mg 06/12/2019 11:15:00 AM EST 50 mg Oral active 50 mg, Oral, Daily Standard, First dose on Wed06/12/19 at 1115, For 30 days
Check vital signs before administering
[facility] Medication administered onsite Insulin Glargine [...] glucose more than 400 mg/dL: notify provider
[facility] Medication administered onsite 0.4 ML Enoxaparin sodium 100 MG/ML Prefi lled Syringe enoxaparin sodium (LOVENOX) injection 40 mg enoxaparin sodium (LOVENOX) injection 40 mg 06/12/2019 09:00:00 AM EST 40 mg Subcutaneous active 40 mg, Subcutaneous, Daily Standard, First dose on Wed06/12/19 at 0900, For 30 days [facility] Medication administered onsite POLYETHYLENE GLYCOL [...] due to potential increased risk for aspiration.
[facility] Medication administered onsite Hydralazine Hydrochloride 20 MG/ML Injec table Solution hydrALAZINE (APRESOLINE) injection 10 mg hydrALAZINE (APRESOLINE) injection 10 mg 06/12/2019 08 :23:50 AM EST 10 mg Intravenous aborted 10 m g, Intravenous, Every 6 hours PRN, TO BE GIVEN ONLY IF SBP>170, Starting Wed06/12/19 at 0823, For 3 days
Dilute in 25-50 ml normal saline. Administer over 30 minutes.TO BE GIVEN ONLY IF S BP>170
[facility] Medication administered onsite sennosides, LONG-TERM 8.6 MG Oral Tablet senna 8.6 MG 2 tablet sen na 8.6 MG 2 tablet 06/11/2019 10:00:00 PM EST 2 {tbl} Oral active 2 tablet, Oral, Nightly, First dose on 06/11/19 at 2200, For 30 days [facility] Medication administered onsite Insulin Lispro [...] Summary or Summary Report within the ED.
[facility] Medication administered onsite Glucose 0.4 MG/MG Oral Gel glucose (GLUTOSE) 40 % oral gel 15 g glucose (GLUTOSE) 40 % oral gel 15 g 06/11/2019 02:11:29 PM EST 15 g Oral active 15 g, Oral, PRN, Low blood s ugar, for gluose 55-69 mg/dl and able to take PO, Starting 06/11/19 at 1411, For 30 days [facility] Medication administered onsite vancomycin (VANCOCIN) infusion 1,500 mg/300 mL (premix) [id number] 06/11/2019 09:08:45 AM EST 1500 mg Intravenous active 1,500 mg, Intravenous, Administer over 90 Minutes, Every 24 hours, First dose (after last modification) on 06/11/19 at 0915, For 7 doses [facility] Medication administered onsite Piperacillin 3000 MG / tazobactam 375 MG Injection piperacillin-tazobactam (ZOSYN) IVPB 3.375 g (premix) piperacillin-tazobactam (ZOSYN) IVPB 3.3 75 g (premix) 06/11/2019 09:00:00 AM EST 3.375 g Intravenous abo rted 3.375 g, Intravenous, Administer over 4 Hours, Every 8 hours Standard (3 times per day), First dose on 06/11/19 at 0900, For 3 days [facility] Medication administered onsite Acetaminophen 325 MG Oral Tablet acetaminophen (TYLENO L) tablet 975 mg acetaminophen (TYLENOL) tablet 975 mg 06/11/2019 08:15:00 AM EST 97 5 mg Oral active 975 mg, Oral, E very 8 hours, First dose on 06/11/19 at 0815, For 30 days
Maximum daily dose of acetaminophen is 3,000 mg from all sources in 24 hours.
[facility] Medication administered onsite dextrose 50 % IV solution 25 mL [id number] 06/10/2019 11:20:[address] 25 mL Intravenous active 25 mL, Intrav enous, PRN, Other, blood glucose <55, Starting 06/10/19 at 2320, For 30 days
Not for midline administration.
[facility] Medication administered onsite Glucagon 1 MG Injection glucagon (human recombinant) ( GLUCAGEN) injection 1 mg glucagon (human recombinant) (GLUCAGEN) injection 1 mg 06/10/2019 11:20:42 PM EST 1 mg Intramuscular active 1 mg, Intramuscular, PRN, for glucose <55 without IV access, Starting 06/10/19 at 2320, For 30 days [facility] Medication administered onsite Glucose 0.4 MG/MG Oral Gel glucose (GLUTOSE) 40 % oral gel 15 g glucose (GLUTOSE) 40 % oral gel 15 g 06/10/2019 11:20:42 PM EST 15 g Oral active 15 g, Oral, PRN, Low blood s ugar, for gluose 55-69 mg/dl and able to take PO, Starting 06/10/19 at 2320, For 30 days [facility] Medication administered onsite tramadol hydrochloride 50 MG Oral Tablet traMADol HCl 50 MG Oral Tablet (ULTRAM) traMADol HCl 50 MG Oral Tablet (ULTRAM) 50 mg Oral aborted Take 50 mg by mouth every 6 (six) hours as needed for Pain [facility] Acetaminophen 325 MG Oral Tablet Acetaminophen 325 MG Oral Tablet 650 mg Oral aborted Take 650 mg by mouth every 6 (six) hours as needed for Pain [facility] meloxicam 15 MG Oral Tablet Meloxicam 15 MG Oral Table t (MOBIC) Meloxicam 15 MG Oral Tablet (MOBIC) 15 mg Oral aborted Take 15 mg by mouth daily [facility] Pravastatin Sodium 20 MG Oral Tablet Pra vastatin Sodium 20 MG Oral Tablet (PRAVACHOL) Pravastatin Sodium 20 MG Oral Tablet (PRAVACHOL) 20 mg Oral aborted Take 20 mg by mouth daily [facility] Insurance Providers Payer name Policy type / Coverage type Policy ID Covered libertarian ID Covered libertarian's relationship to smith Policy Smith Plan Information MEDICARE BLUE PPO 306 [id number] SP [id number] MEDICARE BLUE PPO 306 [id number] SP [id number] EXCELLUS BCBS B [id number] S VYM MEDICARE [id number] SP [id number] EXCELLUS MEDICARE BLUE PPO G [id number] Self [id number] EXCELLUS BCBS MCR HMO [id number] S [id number] MEDICARE BLUE PPO 306 [id number] SP [id number] MEDICARE BLUE PPO 306 [id number] SP [id number] BLUE CROSS BLUE SHIELD MCR -OP [id number] 18 [id number] MEDICARE BLUE PPO 306 [id number] SP [id number] BLUE CROSS BLUE SHIELD -O/P [id number] 18 [id number] MEDICARE BLUE PPO 306 [id number] SP [id number] EXCELLUS BCBS B [id number] S VYM MEDICARE BLUE PPO 306 [id number] SP [id number] BCBS [place] PPO [id number] MEDICARE [id number] SP [id number] A [facility] [id number] WI2 80 [id number] Blue Shield MCR Advantage Commercial [id number] Self [id number] MVP (pr) Medigap Part B [id number] Family Dependent [id number] Blue Shield MCR Advantage Commercial [id number] Self [id number] Blue Shield MCR Advantage Commercial [id number] Self [id number] O UNAVAILABLE UNAVAILA BLE Problems, Conditions, and Diagnoses Code Display Name Description Problem Type Effective Dates Data Source(s) 03244214 Essential hypertension Essential hypertension Problem 01/15/2020 12:00:00 AM EDT MEDENT ([facility], ) 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 Problem 01/08/2020 12:00:00 AM EDT eCW1 ([facility]) [id number] Carotid artery stenosis Carotid artery stenosis Proble m 12/25/2019 12:00:00 AM EDT MEDENT ([facility], ) [id number] Ischemic stroke Ischemic stroke Problem 12/25/2019 12:0 0:00 AM EDT MEDENT ([facility], ) I48.92 Unspecified atrial flutter Unspecified atrial flutter Problem 11/25/2019 01:00:00 AM EDT NETSMART ([facility] ) 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, or unspecified chronic kidney disease Hypertensive chronic kidney disease with stage 1 through stage 4 chronic kidney disease, or unspecified chronic kidney disease Problem 11/25/2019 01:00:00 AM ED T NETSMART ([facility]) 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 Problem 11/25/2019 01:00:00 AM EDT NETSMART ([facility] ) N18.9 Chronic kidney disease, unspecified Chronic kidn ey disease, unspecified Problem 11/25/2019 01:00:00 AM EDT NETSMART ([facility]) D63.1 Anemia in chronic kidney disease Anemia in chronic kid sonal disease Problem 11/25/2019 01:00:00 AM EDT NETSMART ([facility] ) E11.40 Type 2 diabetes mellitus with diabetic n europathy, unspecified Type 2 diabetes mellitus with diabetic neuropathy, unspecified Problem 11/25/2019 01:00:00 AM EDT NETSMART ([facility] ) M48.061 Spinal stenosis, lumbar region without n eurogenic claudication Spinal stenosis, lumbar region without neurogenic claudication Problem 11/25/2019 01:00:00 AM EDT NETSMART ([facility] ) 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, lumbar region Intervertebral disc disorders with radiculopathy, lumbar region Problem 11/25/2019 01:00:00 AM EDT NETSMART ([facility] ) M54.30 Sciatica, unspecified side Sciatica, unspecified side Problem 11/25/2019 01:00:00 AM EDT NETSMART ([facility] ) M19.90 Unspecified osteoarthritis, unspecified site Unspecified osteoarthritis, unspecified site Problem 11/25/2019 01:00:00 AM EDT NETSMART ([facility]) D50.9 Iron deficiency anemia, unspecified Iron deficie ncy anemia, unspecified Problem 11/25/2019 01:00:00 AM EDT NETSMART ([facility]) R33.8 Other retention of urine Other retention of urine Prob norberto 11/25/2019 01:00:00 AM EDT NETSMART ([facility] ) Z46.6 Encounter for fitting and adjustment of urinary device Encounter for fitting and adjustment of urinary device Problem 11/25/2019 01:00:00 AM EDT NETSMART ([facility]) Z91.81 History of falling History of falling Problem 0 01:00:00 AM EDT NETSMART ([facility]) Z79.4 residential (current) use of insulin residential (cu rrent) use of insulin Problem 11/25/2019 01:00:00 AM EDT NETSMART ([facility]) Z79.01 residential (current) use of anticoagulant s residential (current) use of anticoagulants Problem 11/25/2019 01:00:00 AM EDT NETSMART ([facility]) Z87.891 Personal history of nicotine dependence Personal history of nicotine dependence Problem 11/25/2019 01:00:00 AM EDT NETSMART ([facility]) 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 ebral infarction affecting right dominant side Problem 11/24/2019 01:00:00 AM EDT NET SMART ([facility]) R33.9 Urinary retention Urinary retention Problem 08/23/2019 12:00:00 AM EST eCW1 ([facility]) R33.9 Urinary retention Urinary retention Problem 08/23/2019 12:00:00 AM EST eCW1 ([facility]) Z46.6 Encounter for fitting and adjustment of urinary device Encounter for fitting and adjustment of urinary device Problem 08/10/2019 12:00:00 AM EST NETSMART ([facility]) R33.8 Other retention of urine Other retention of urine Prob norberto 08/10/2019 12:00:00 AM EST NETSMART ([facility] ) E11.40 Type 2 diabetes mellitus with diabetic n europathy, unspecified Type 2 diabetes mellitus with diabetic neuropathy, unspecified Problem 08/10/2019 12:00:00 AM EST NETSMART ([facility] ) 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, or unspecified chronic kidney disease Hypertensive chronic kidney disease with stage 1 through stage 4 chronic kidney disease, or unspecified chronic kidney disease Problem 08/10/2019 12:00:00 AM ES T NETSMART ([facility]) 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 Problem 06/16/2019 12:00:00 AM EST NETSMART ([facility]) 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 Problem 06/16/2019 12:00:00 AM EST [facility] [facility] ) N18.9 Chronic kidney disease, unspecified Chronic kidn ey disease, unspecified Problem 06/16/2019 12:00:00 AM EST NETSMART ([facility]) M19.90 Unspecified osteoarthritis, unspecified site Unspecified osteoarthritis, unspecified site Problem 06/16/2019 12:00:00 AM EST NETSMART ([facility]) Z91.81 History of falling History of falling Problem 9 12:00:00 AM EST NETSMART ([facility]) Z79.4 exterminator termite (current) use of insulin exterminator termite (cu rrent) use of insulin Problem 06/16/2019 12:00:00 AM EST NETSMART ([facility]) R33.9 Retention of urine, unspecified Retention of urine, un specified Problem 06/16/2019 12:00:00 AM EST NETSMART ([facility] ) Z51.81 Encounter for therapeutic drug level mon itoring Encounter for therapeutic drug level monitoring Problem 06/16/2019 12:00:00 AM EST NETSMART ( [facility]) Z79.2 residential (current) use of antibiotics L robert term (current) use of antibiotics Problem 06/16/2019 12:00:00 AM EST NETSMART ([facility]) M46.46 Discitis, unspecified, lumbar region Dis citis, unspecified, lumbar region Problem 06/16/2019 12:00:00 AM EST NETSMART ([facility]) M46.46 Discitis, unspecified, lumbar region Dis citis, unspecified, lumbar region Problem 06/14/2019 12:00:00 AM EST NETSMART ([facility]) M4646 Discitis, unspecified, lumbar region Discitis, u nspecified, lumbar region Diagnosis 07/18/2019 01:14:00 PM [facility] 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 granuloma Diagnosis 07/18/2019 01:14:00 PM [facility] 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, unspeci fied Extradural and subdural abscess, unspecified Diagnosis 07/10/2019 10:52:00 AM [facility] R33.9 Retention of urine, unspecified RETENTION OF URINE, UN SPECIFIED Diagnosis 06/30/2019 09:29:00 AM [facility] Z792 exterminator termite (current) use of antibiotics L robert term (current) use of antibiotics Diagnosis 06/26/2019 02:46:00 PM [facility] R33.9 Retention of urine, unspecified Retention of urine, un specified Diagnosis 06/15/2019 02:55:41 PM [facility] I10 Essential (primary) hypertension Essential (primary) h ypertension Diagnosis 06/13/2019 09:07:47 PM [facility] Surgeries/Procedures Procedure Description Date Indications Data Source(s) Medication: Lidocaine HCl 2% Jelly 5mL Intravesically 08/05/2020 12:00:00 AM EST eCW1 ([facility]) Medication: Lidocaine HCl 2% Jelly 5mL Intravesically 07/16/2020 12:00:00 AM EST eCW1 ([facility]) BLDR IRRIGATION SMPL LAVAGE&/INSTLJ 06/27/2020 12:00:0 0 AM EST eCW1 ([facility]) Medication: Lidocaine HCl 2% Jelly 5mL Intravesically 06/20/2020 12:00:00 AM EST eCW1 ([facility]) Medication: Lidocaine HCl 2% Jelly 5mL Intravesically 05/20/2020 12:00:00 AM EST eCW1 ([facility]) Burt Catheter Insertion 20F 04/05/2020 12:00:00 AM ED T eCW1 ([facility]) Medication: Lidocaine HCl 2% Jelly 5mL Intravesically 03/26/2020 12:00:00 AM EDT eCW1 ([facility]) TSTG ANS FUNCJ CARDIOVAGAL INNERVAJ PARASYMP 0 12:00:00 AM EDT MEDENT ([facility], ) TSTG ANS FUNCJ CARDIOVAGAL INNERVAJ PARASYMP 0 12:00:00 AM EDT MEDENT ([facility], ) TESTING AUTONOMIC NERVOUS SYSTEM FUNCTION 01/26/2020 1 2:00:00 AM EDT MEDENT ([facility], ) TESTING AUTONOMIC NERVOUS SYSTEM FUNCTION 01/26/2020 1 2:00:00 AM EDT MEDENT ([facility], ) NON-INVASIVE PHYSIOLOGIC STUDY EXTREMITY 3 LEVLS 01/25 12:00:00 AM EDT MEDENT ([facility], ) Burt Catheter Coude Insertion 20F 01/09/2020 12:00:00 AM EDT eCW1 ([facility]) Magnetic Resonance Angiogtaphy Head W/O Contrast Material(S) 01/01/2020 12:00:00 AM EDT MEDENT ([facility] ) Magnetic Resonance Angiogtaphy Head W/O Contrast Material(S) 01/01/2020 12:00:00 AM EDT MEDENT ([facility]) Magnetic Resonance Angiography Neck W/O And Then With Contra st ML 01/01/2020 12:00:00 AM EDT MEDENT ([facility]) Magnetic Resonance Angiography Neck W/O And Then With Contra st ML 01/01/2020 12:00:00 AM EDT MEDENT ([facility]) Office Visit, Est Pt., Level 3 FC 11/16/2019 12:00:00 AM EDT eCW1 ([facility]) Office Visit, Est Pt., Level 3 PC 11/16/2019 12:00:00 AM EDT eCW1 ([facility]) INSERT BLADDER CATH, COMPLEX 11/16/2019 12:00:00 AM ED T eCW1 ([facility]) Office Visit, New Pt., Level 2 FC 08/23/2019 12:00:00 AM EST eCW1 ([facility]) Office Visit, New Pt., Level 3 PC 08/23/2019 12:00:00 AM EST eCW1 ([facility]) POCT GLUCOSE, DOCKED POCT GLUCOSE, DOCKED Routine 06/15/2019 11:39 AM EST 06/15/2019 04:39:00 PM [facility] IRON BINDING CAPACITY TOTAL FE BINDING CAPACITY STAT 9 9:31 AM EST 06/15/2019 02:31:00 PM [facility] BLOOD COUNT COMPLETE AUTOMATED CBC STAT 06/15/2019 9:31 A M EST 06/15/2019 02:31:00 PM [facility] FERRITIN FERRITIN LEVEL STAT 06/15/2019 9:31 AM EST 06/15/2019 02:31:00 PM [facility] DRUG SCREEN QUALITATIVE VANCOMYCIN VANCOMYCIN, TROUGH Routine 06/15/2019 9:31 AM EST 06/15/2019 02:31:00 PM [facility] POCT GLUCOSE, DOCKED POCT GLUCOSE, DOCKED Routine 06/15/2019 7:51 AM EST 06/15/2019 12:51:00 PM [facility] BLOOD COUNT COMPLETE AUTO&AUTO DIFRNTL WBC COUNT CBC AND DIFFER ENTIAL Routine 06/15/2019 3:15 AM EST 06/15/2019 08:15:00 AM [facility] PHOSPHORUS INORGANIC PHOSPHORUS LEVEL Routine 06/15/2019 3:[address] 06/15/2019 08:15:00 AM [facility] MAGNESIUM MAGNESIUM LEVEL Routine 06/15/2019 3:15 AM EST 06/15/2019 08:15:00 AM [facility] BASIC METABOLIC PANEL CALCIUM TOTAL BASIC METABOLIC PANEL Routi ne 06/15/2019 3:15 AM EST 06/15/2019 08:15:00 AM [facility] GLUCOSE QUANTITATIVE BLOOD XCPT REAGENT STRIP POCT GLUCOSE, DOC KED Routine 06/14/2019 8:36 PM EST 06/15/2019 01:36:00 AM [facility] GLUCOSE QUANTITATIVE BLOOD XCPT REAGENT STRIP POCT GLUCOSE, DOC KED Routine 06/14/2019 4:25 PM EST 06/14/2019 09:25:00 PM [facility] GLUCOSE QUANTITATIVE BLOOD XCPT REAGENT STRIP POCT GLUCOSE, DOC KED Routine 06/14/2019 11:42 AM EST 06/14/2019 04:42:00 PM [facility] BLOOD COUNT COMPLETE AUTOMATED CBC Routine 06/14/2019 8:28 A M EST 06/14/2019 01:28:00 PM [facility] PHOSPHORUS INORGANIC PHOSPHORUS LEVEL Routine 06/14/2019 8:[address] 06/14/2019 01:28:00 PM [facility] MAGNESIUM MAGNESIUM LEVEL Routine 06/14/2019 8:28 AM EST 06/14/2019 01:28:00 PM [facility] BASIC METABOLIC PANEL CALCIUM TOTAL BASIC METABOLIC PANEL Routi ne 06/14/2019 8:28 AM EST 06/14/2019 01:28:00 PM [facility] GLUCOSE QUANTITATIVE BLOOD XCPT REAGENT STRIP POCT GLUCOSE, DOC KED Routine 06/14/2019 7:58 AM EST 06/14/2019 12:58:00 PM [facility] GLUCOSE QUANTITATIVE BLOOD XCPT REAGENT STRIP POCT GLUCOSE, DOC KED Routine 06/13/2019 9:04 PM EST 06/14/2019 02:04:00 AM [facility] GLUCOSE QUANTITATIVE BLOOD XCPT REAGENT STRIP POCT GLUCOSE, DOC KED Routine 06/13/2019 4:28 PM EST 06/13/2019 09:28:00 PM [facility] PICC ULTRASOUND - BEDSIDE PROCEDURE PICC ULTRASOUND - BEDSI DE PROCEDURE Routine 06/13/2019 2:41 PM EST 06/13/2019 07:41:00 PM [facility] GLUCOSE QUANTITATIVE BLOOD XCPT REAGENT STRIP POCT GLUCOSE, DOC KED Routine 06/13/2019 11:48 AM EST 06/13/2019 04:48:00 PM [facility] BLOOD COUNT COMPLETE AUTO&AUTO DIFRNTL WBC COUNT CBC AND DIFFER ENTIAL Routine 06/13/2019 9:32 AM EST 06/13/2019 02:32:00 PM [facility] PHOSPHORUS INORGANIC PHOSPHORUS LEVEL Routine 06/13/2019 9:[address] 06/13/2019 02:32:00 PM [facility] MAGNESIUM MAGNESIUM LEVEL Routine 06/13/2019 9:32 AM EST 06/13/2019 02:32:00 PM [facility] BASIC METABOLIC PANEL CALCIUM TOTAL BASIC METABOLIC PANEL Routi ne 06/13/2019 9:32 AM EST 06/13/2019 02:32:00 PM [facility] GLUCOSE QUANTITATIVE BLOOD XCPT REAGENT STRIP POCT GLUCOSE, DOC KED Routine 06/13/2019 7:19 AM EST 06/13/2019 12:19:00 PM [facility] GLUCOSE QUANTITATIVE BLOOD XCPT REAGENT STRIP POCT GLUCOSE, DOC KED Routine 06/12/2019 9:55 PM EST 06/13/2019 02:55:00 AM [facility] GLUCOSE QUANTITATIVE BLOOD XCPT REAGENT STRIP POCT GLUCOSE, DOC KED Routine 06/12/2019 4:31 PM EST 06/12/2019 09:31:00 PM [facility] RADEX SPINE LUMBOSACRAL 2/3 VIEWS XR SPINE LUMBAR 2-3 VIEWS 721 00 Routine 06/12/2019 3:41 PM EST 06/12/2019 08:41:49 PM [facility] GLUCOSE QUANTITATIVE BLOOD XCPT REAGENT STRIP POCT GLUCOSE, DOC KED Routine 06/12/2019 11:27 AM EST 06/12/2019 04:27:00 PM [facility] CUL PRSMPTV PTHGNC ORGANISM SCRN W/COLONY ESTIMJ MRSA CULTURE Routine 06/12/2019 11:25 AM EST 06/12/2019 04:25:00 PM [facility] Results ID Date Data Source [id number] 03/24/2020 07:15:41 AM EDT [facility] Name Value Range Interpretation Code Description Data Tania rce(s) Supporting Document(s) Progress Note [facility] YXCZXf2wYpDHOcPm96/BOTdlNDFwd2NfYWteMMg0GCebONHlS4PzFBE1dV8lIML6KNySUuGcKaKmJWB3 lbm [file] TyYhOAH5LJDoJ5LoNLVsGPJlIG1wHCHPZy7+KKbhmUDazGhhFDKAEcY6RqC6KGnzNRHQEd9D ID Date Data Source [id number] 03/16/2020 09:30:46 AM EDT [facility] XR SPINE LUMBAR 4-MORE VIEWS [id number] RESULTInterpreted by:VIOLETTA Moya SPINECLINICAL STATEMENT: Low back pain.TECHNIQUE: AP, [...] rce(s) Supporting Document(s) ID Date Data Source [id number] 09/25/2019 04:13:27 PM EDT [facility] XR SPINE LUMBAR 4-MORE VIEWS [id number] RESULTInterpreted by:Violetta Maciel spine 4 viewsINDICATION: Lumbar painCOMPARISON: Thoracic and [...] rce(s) Supporting Document(s) ID Date Data Source [id number] 09/24/2019 11:36:26 AM EDT [facility] Name Value Range Interpretation Code Description Data Tania rce(s) Supporting Document(s) Progress Note [facility] WCQEBt1bMaGYExRs12/SGQvyEDPlz2CdNRobHHa4GZfoVAXzQ8YiLXW5cK1jHHN4MYtSVlRpNuByBbD8 m [file] 8Xsbnn5koscqwbrXGwHe2qU1Ya/j1fITeN8AISB0Qqqv+data input clerk/7C8ZgHYavKYhUyf9smi2cRjHltiThU1m [file] M4tyNdKYv9MxE6Tk4WBYVVQ0YZOz== ID Date Data Source [id number] 08/04/2019 03:18:58 PM [facility] XR SPINE-ENTIRE THORACIC AND LUMBAR- 2 O R 3 VIEW [id number] RESULTInterpreted by:Sage Shepherd MDEXAM: Entire thoracic and [...] rce(s) Supporting Document(s) ID Date Data Source [id number] 07/30/2019 07:47:45 AM EST [facility] Name Value Range Interpretation Code Description Data Tania rce(s) Supporting Document(s) Progress Note [facility] ULVCSt0rNhZTKlZl22/XJQntVMZtb6CbZIqlSIx4ZLdrKICnM1OfPHA4sD7dSHZ3OFkVWhBaFiYdSmEh lbm [file] H+R/Lvhy+Cárdenas/08oyt5QQ8CBp/9J1beiG29+lhDSmCFeQ0VT1iLweoMNbrLL8CHme82Mf5UN9gK2MrFd [file] gCITJnBvkWUm3JyTgiBL67WPyq0oDX5/WM7oLT+c0VsK8/QWA/Matt+j/iWqycGSJ608xra3orp22J+vp ad products and planning [file] VgN1A4RgWhYjHjDQ4FLa7BJsM5CCS2wWWeEe5RLTJ3FwMOHzLqNS6ULAp= ID Date Data Source [id number] 07/24/2019 12:01:52 PM [facility] Name Value Range Interpretation Code Description Data Tania rce(s) Supporting Document(s) Progress Note [facility] PKOYGi7dOiBNVyHz48/KJZmsKSGdp2UyRJmjWLk1NRdvBTUoH6TyPBO0rP4oZRJ8DXzRQcMuOlDvECQ5 lbm [file] DQSTZ1GOWe== ID Date Data Source [id number] 07/18/2019 02:50:00 PM EST [facility] Name Value Range Interpretation Code Description Data Tania rce(s) Supporting Document(s) Erythrocyte sedimentation rate by Westergren method 41 mm/hr 0 - 20 H [facility] SED RATE REENTER 41 [facility] ID Date Data Source [id number] 07/18/2019 02:31:00 PM EST [facility] Name Value Range Interpretation Code Description Data Tania rce(s) Supporting Document(s) COMPREHENSIVE METABOLIC PANEL [facility] COMPREHENSIVE METABOLIC PANEL Sodium [Moles/volume] in Serum or Plasma 140 mEq/L 134 - 153 [facility] Potassium [Moles/volume] in Serum or Plasma 4.8 mEq/L 3.6 - 5.0 [facility] Chloride [Moles/volume] in Serum or Plasma 103 mEq/L 98 - 107 [facility] Carbon dioxide, total [Moles/volume] in Serum or Plasma 25 MEQ/L 22 - 30 [facility] Glucose [Mass/volume] in Serum or Plasma 145 MG/DL 65 - 110 H [facility] BUN 23 MG/DL 7 - [facility] Creatinine [Mass/volume] in Serum or Plasma 0.9 MG/DL 0.7 - 1.5 [facility] BUN/CREAT 26 8 - 27 [facility] Protein [Mass/volume] in Serum or Plasma 6.7 G/DL 6.3 - 8.2 [facility] Albumin [Mass/volume] in Serum or Plasma 3.7 G/DL 3.9 - 5.0 L [facility] Globulin [Mass/volume] in Serum by calculation 3.0 GM/DL 2.4 - 3.2 [facility] A/G RATIO 1.2 0.8 - 2.0 [facility] Calcium [Mass/volume] in Serum or Plasma 9.3 MG/DL 8.4 - 10.2 [facility] Bilirubin.total [Mass/volume] in Serum or Plasma 0.7 MG/DL 0.2 - 1.3 [facility] Alkaline phosphatase [Enzymatic activity/volume] in Serum or Plasma 175 U/L 38 - 126 H [facility] Aspartate aminotransferase [Enzymatic activity/volume] in Serum or Plasma 17 U/L 5 - 40 [facility] Alanine aminotransferase [Enzymatic activity/volume] in Seru m or Plasma 16 U/L 7 - 56 [facility] Anion gap 3 in Serum or Plasma 12.0 mmol/L 8.0 - 16.0 [facility] AGE [address] [facility] al NON-AA GFR >60 mL/min [facility] ital AFR AMER GFR >60 mL/min [facility] spital Male GFR In terprentation [...] >32 mL/min Normal ID Date Data Source [id number] 07/18/2019 02:22:00 PM EST [facility] Name Value Range Interpretation Code Description Data Tania rce(s) Supporting Document(s) CBC NO DIFF [facility] ital COMPLETE BLOOD COUNT Leukocytes [#/volume] in Blood by Automated count 7.9 10^3/uL 4.2 - 1 1.0 [facility] Erythrocytes [#/volume] in Blood by Automated count 3.22 10^6/uL 4. 50 - 6.30 L [facility] Hemoglobin [Mass/volume] in Blood 9.7 g/dL 14.0 - 16.0 L [facility] Hematocrit [Volume Fraction] of Blood by Automated count 31.3 % 4 1.0 - 51.0 L [facility] Erythrocyte mean corpuscular volume [Entitic volume] by Auto mated count 97.2 fL 80.0 - 94.0 H [facility] Erythrocyte mean corpuscular hemoglobin [Entitic mass] by Automated count 30.1 pg 27.0 - 34.0 [facility] Erythrocyte mean corpuscular hemoglobin concentration [Mass/volume] by Automated count 31.0 g/dL 31.0 - 36.0 [facility] Erythrocyte distribution width [Ratio] by Automated count 15.2 % 11.5 - 14.8 H [facility] Platelets [#/volume] in Blood by Automated count 319 10^3/uL 150 - 45 0 [facility] Platelet mean volume [Entitic volume] in Blood by Automated count 10.5 fL 7.4 - 10.4 H [facility] ID Date Data Source [id number] 07/10/2019 02:23:10 PM [facility] Name Value Range Interpretation Code Description Data Tania rce(s) Supporting Document(s) Progress Note [facility] LZVWIi2fTwHZEtXr37/NHMitWLCcy0CmXNoeNVd3YHkjMXOpF4MvLJV8sQ7gRBT6HWtKEfNyGlKyNHKh [facility] [file] 7e4eMB++wS7kO834j46xN+049LgeX66ercZ/4H2vnP Af+YsyBuRPtIh51U+J7C2c0wNI9EQdZ/PQfR5hDXVKQqcdwejTnjtE/5a/FZS2v+TTUqr5t4oQoB+Vup xHD5flCFqt6TvcGgWt+Bv6U7G0WcBV+U+CAf7QjAX7amrDy63dRrWyu01uz2rO/F2hip1b8qI3Y9q+38 N40PzN+0qdtWrP1U/APt/SoHC5owJf38fQo4uCKnRr BoAdMIgYRznX/q9AH5+hkKK9LRsUBAePexfg7+a+fCM259eMqHRgWDY+Uv2Uq7o6Qj5yg61X5nXRxsP8 kGTCm3qp6KiL+5q41C8Iv0gt6N9hGjLrV091UdtxM+h6rLvszhq02/D/Catalogue Illustrator+e/B/rQ1a3sKklcL15W+B [file] P2DNSzZXKoBeH2GgNwKA7VVw4IAmN1SUN9bLNlPr6MLlBoTgQKVmBcCY5NQMk= ID Date Data Source [id number] 07/10/2019 12:23:00 PM [facility] Name Value Range Interpretation Code Description Data Tania rce(s) Supporting Document(s) Erythrocyte sedimentation rate by Westergren method 25 mm/hr 0 - 20 H [facility] SED RATE REENTER 25 [facility] ID Date Data Source [id number] 07/10/2019 12:07:00 PM [facility] Name Value Range Interpretation Code Description Data Tania rce(s) Supporting Document(s) C reactive protein [Mass/volume] in Serum or Plasma by High sensitivity method 11.53 MG/L 1.00 - 3.00 H [facility] CDC/S HS-CRP CUT-OFF: RELATIVE RISK: <1.0 mg/L Low 1.0 - 3.0 mg/L Average >3.0 mg/L High Optimally, the average of HS-CRP results repeated two weeks apart should be used for risk assessment. ID Date Data Source [id number] 07/10/2019 12:07:00 PM [facility] Name Value Range Interpretation Code Description Data Tania rce(s) Supporting Document(s) COMPREHENSIVE METABOLIC PANEL [facility] COMPREHENSIVE METABOLIC PANEL Sodium [Moles/volume] in Serum or Plasma 138 mEq/L 134 - 153 [facility] Potassium [Moles/volume] in Serum or Plasma 4.7 mEq/L 3.6 - 5.0 [facility] Chloride [Moles/volume] in Serum or Plasma 103 mEq/L 98 - 107 [facility] Carbon dioxide, total [Moles/volume] in Serum or Plasma 26 MEQ/L 22 - 30 [facility] Glucose [Mass/volume] in Serum or Plasma 183 MG/DL 65 - 110 H [facility] BUN 17 MG/DL 7 - 21 [facility] Creatinine [Mass/volume] in Serum or Plasma 0.9 MG/DL 0.7 - 1.5 [facility] BUN/CREAT 19 8 - 27 [facility] al Protein [Mass/volume] in Serum or Plasma 6.3 G/DL 6.3 - 8.2 [facility] Albumin [Mass/volume] in Serum or Plasma 3.3 G/DL 3.9 - 5.0 L [facility] Globulin [Mass/volume] in Serum by calculation 3.0 GM/DL 2.4 - 3.2 [facility] A/G RATIO 1.1 0.8 - 2.0 [facility] al Calcium [Mass/volume] in Serum or Plasma 9.0 MG/DL 8.4 - 10.2 [facility] Bilirubin.total [Mass/volume] in Serum or Plasma 0.7 MG/DL 0.2 - 1.3 [facility] Alkaline phosphatase [Enzymatic activity/volume] in Serum or Plasma 168 U/L 38 - 126 H [facility] Aspartate aminotransferase [Enzymatic activity/volume] in Serum or Plasma 15 U/L 5 - 40 [facility] Alanine aminotransferase [Enzymatic activity/volume] in Seru m or Plasma 15 U/L 7 - 56 [facility] Anion gap 3 in Serum or Plasma 9.0 mmol/L 8.0 - 16.0 [facility] AGE [address] [facility] al NON-AA GFR >60 mL/min [facility] ital AFR AMER GFR >60 mL/min [facility] Male GFR In terprentation [...] >32 mL/min Normal ID Date Data Source [id number] 07/10/2019 11:56:00 AM EST [facility] Name Value Range Interpretation Code Description Data Tania rce(s) Supporting Document(s) CBC W/AUTOMATED DIFF [facility] COMPLETE BLOOD COUNT Leukocytes [#/volume] in Blood by Automated count 6.4 10^3/uL 4.2 - 1 1.0 [facility] Erythrocytes [#/volume] in Blood by Automated count 2.87 10^6/uL 4. 50 - 6.30 L [facility] Hemoglobin [Mass/volume] in Blood 8.7 g/dL 14.0 - 16.0 L [facility] Hematocrit [Volume Fraction] of Blood by Automated count 27.7 % 4 1.0 - 51.0 L [facility] Erythrocyte mean corpuscular volume [Entitic volume] by Auto mated count 96.5 fL 80.0 - 94.0 H [facility] Erythrocyte mean corpuscular hemoglobin [Entitic mass] by Automated count 30.3 pg 27.0 - 34.0 [facility] Erythrocyte mean corpuscular hemoglobin concentration [Mass/volume] by Automated count 31.4 g/dL 31.0 - 36.0 [facility] Erythrocyte distribution width [Ratio] by Automated count 15.2 % 11.5 - 14.8 H [facility] Platelets [#/volume] in Blood by Automated count 290 10^3/uL 150 - 45 0 [facility] Platelet mean volume [Entitic volume] in Blood by Automated count 10.0 fL 7.4 - 10.4 [facility] Neutrophils/100 leukocytes in Blood by Automated count 73.5 % 37. 0 - 80.0 [facility] Lymphocytes/100 leukocytes in Blood by Manual count 14.8 % 25.0 - 40.0 L [facility] Monocytes/100 leukocytes in Blood by Automated count 5.6 % 3.0 - 8.0 [facility] Eosinophils/100 leukocytes in Blood by Automated count 5.0 % 0.0 - 7.0 [facility] Basophils/100 leukocytes in Blood by Automated count 0.8 % 0.0 - 2.0 [facility] %IG 0.3 % 0.0 - 0.0 [facility] %NRBC 0.0 % 0.0 - 0.0 [facility] al Neutrophils [#/volume] in Blood by Automated count 4.71 10^3/uL 2.00 - 6.90 [facility] Lymphocytes [#/volume] in Blood by Automated count 0.95 10^3/uL 0.60 - 3.40 [facility] Monocytes [#/volume] in Blood by Automated count 0.36 10^3/uL 0.00 - 0.90 [facility] Eosinophils [#/volume] in Blood by Automated count 0.32 10^3/uL 0.00 - 0.70 [facility] Basophils [#/volume] in Blood by Automated count 0.05 10^3/uL 0.00 - 0.20 [facility] #IG 0.02 10^3/uL 0.00 - 0.10 [facility] #NRBC 0.00 10^3/uL 0.00 - 0.00 [facility] MANUAL DIFF NOT INDICATED [facility] RBC MORPH NOT INDICATED [facility] spital ID Date Data Source [id number] 07/03/2019 05:15:00 PM [facility] Name Value Range Interpretation Code Description Data Tania rce(s) Supporting Document(s) C reactive protein [Mass/volume] in Serum or Plasma by High sensitivity method 14.39 MG/L 1.00 - 3.00 H [facility] CDC/S HS-CRP CUT-OFF: RELATIVE RISK: <1.0 mg/L Low 1.0 - 3.0 mg/L Average >3.0 mg/L High Optimally, the average of HS-CRP results repeated two weeks apart should be used for risk assessment. ID Date Data Source [id number] 07/03/2019 05:15:00 PM [facility] Name Value Range Interpretation Code Description Data Tania rce(s) Supporting Document(s) COMPREHENSIVE METABOLIC PANEL [facility] COMPREHENSIVE METABOLIC PANEL Sodium [Moles/volume] in Serum or Plasma 137 mEq/L 134 - 153 [facility] Potassium [Moles/volume] in Serum or Plasma 4.9 mEq/L 3.6 - 5.0 [facility] Chloride [Moles/volume] in Serum or Plasma 100 mEq/L 98 - 107 [facility] Carbon dioxide, total [Moles/volume] in Serum or Plasma 23 MEQ/L 22 - 30 [facility] Glucose [Mass/volume] in Serum or Plasma 149 MG/DL 65 - 110 H [facility] BUN 18 MG/DL 7 - 21 [facility] Creatinine [Mass/volume] in Serum or Plasma 0.9 MG/DL 0.7 - 1.5 [facility] BUN/CREAT 20 8 - 27 [facility] Protein [Mass/volume] in Serum or Plasma 6.3 G/DL 6.3 - 8.2 [facility] Albumin [Mass/volume] in Serum or Plasma 3.2 G/DL 3.9 - 5.0 L [facility] Globulin [Mass/volume] in Serum by calculation 3.1 GM/DL 2.4 - 3.2 [facility] A/G RATIO 1.0 0.8 - 2.0 [facility] al Calcium [Mass/volume] in Serum or Plasma 8.8 MG/DL 8.4 - 10.2 [facility] Bilirubin.total [Mass/volume] in Serum or Plasma 0.7 MG/DL 0.2 - 1.3 [facility] Alkaline phosphatase [Enzymatic activity/volume] in Serum or Plasma 161 U/L 38 - 126 H [facility] Aspartate aminotransferase [Enzymatic activity/volume] in Serum or Plasma 18 U/L 5 - 40 [facility] Alanine aminotransferase [Enzymatic activity/volume] in Seru m or Plasma 15 U/L 7 - 56 [facility] Anion gap 3 in Serum or Plasma 14.0 mmol/L 8.0 - 16.0 [facility] AGE [address] [facility] al NON-AA GFR >60 mL/min [facility] ital AFR AMER GFR >60 mL/min [facility] Male GFR In terprentation [...] >32 mL/min Normal ID Date Data Source [id number] 07/03/2019 05:04:00 PM EST [facility] Name Value Range Interpretation Code Description Data Tania rce(s) Supporting Document(s) Erythrocyte sedimentation rate by Westergren method 60 mm/hr 0 - 20 H [facility] SED RATE REENTER 60 [facility] ID Date Data Source [id number] 07/03/2019 04:46:00 PM EST [facility] Name Value Range Interpretation Code Description Data Tania rce(s) Supporting Document(s) CBC W/AUTOMATED DIFF [facility] COMPLETE BLOOD COUNT Leukocytes [#/volume] in Blood by Automated count 8.7 10^3/uL 4.2 - 1 1.0 [facility] Erythrocytes [#/volume] in Blood by Automated count 2.62 10^6/uL 4. 50 - 6.30 L [facility] Hemoglobin [Mass/volume] in Blood 8.0 g/dL 14.0 - 16.0 L [facility] Hematocrit [Volume Fraction] of Blood by Automated count 24.9 % 4 1.0 - 51.0 L [facility] Erythrocyte mean corpuscular volume [Entitic volume] by Auto mated count 95.0 fL 80.0 - 94.0 H [facility] Erythrocyte mean corpuscular hemoglobin [Entitic mass] by Automated count 30.5 pg 27.0 - 34.0 [facility] Erythrocyte mean corpuscular hemoglobin concentration [Mass/volume] by Automated count 32.1 g/dL 31.0 - 36.0 [facility] Erythrocyte distribution width [Ratio] by Automated count 15.1 % 11.5 - 14.8 H [facility] Platelets [#/volume] in Blood by Automated count 310 10^3/uL 150 - 45 0 [facility] Platelet mean volume [Entitic volume] in Blood by Automated count 10.0 fL 7.4 - 10.4 [facility] Neutrophils/100 leukocytes in Blood by Automated count 70.7 % 37. 0 - 80.0 [facility] Lymphocytes/100 leukocytes in Blood by Manual count 18.2 % 25.0 - 40.0 L [facility] Monocytes/100 leukocytes in Blood by Automated count 6.2 % 3.0 - 8.0 [facility] Eosinophils/100 leukocytes in Blood by Automated count 4.0 % 0.0 - 7.0 [facility] Basophils/100 leukocytes in Blood by Automated count 0.7 % 0.0 - 2.0 [facility] %IG 0.2 % 0.0 - [facility] 0.0 [facility] 0.0 [facility] al Neutrophils [#/volume] in Blood by Automated count 6.16 10^3/uL 2.00 - 6.90 [facility] Lymphocytes [#/volume] in Blood by Automated count 1.59 10^3/uL 0.60 - 3.40 [facility] Monocytes [#/volume] in Blood by Automated count 0.54 10^3/uL 0.00 - 0.90 [facility] Eosinophils [#/volume] in Blood by Automated count 0.35 10^3/uL 0.00 - 0.70 [facility] Basophils [#/volume] in Blood by Automated count 0.06 10^3/uL 0.00 - 0.20 [facility] #IG 0.02 10^3/uL 0.00 - 0.10 [facility] #NRBC 0.00 10^3/uL 0.00 - 0.00 [facility] MANUAL DIFF NOT INDICATED [facility] RBC MORPH NOT INDICATED [facility] spital ID Date Data Source [id number] 06/29/2019 07:35:00 PM EST [facility] Name Value Range Interpretation Code Description Data Tania rce(s) Supporting Document(s) COMPREHENSIVE METABOLIC PANEL [facility] COMPREHENSIVE METABOLIC PANEL Sodium [Moles/volume] in Serum or Plasma 136 mEq/L 134 - 153 [facility] Potassium [Moles/volume] in Serum or Plasma 4.8 mEq/L 3.6 - 5.0 [facility] Chloride [Moles/volume] in Serum or Plasma 99 mEq/L 98 - 107 [facility] Carbon dioxide, total [Moles/volume] in Serum or Plasma 26 MEQ/L 22 - 30 [facility] Glucose [Mass/volume] in Serum or Plasma 126 MG/DL 65 - 110 [facility] BUN 12 MG/DL 7 - 21 [facility] system Creatinine [Mass/volume] in Serum or Plasma 0.9 MG/DL 0.7 - 1.5 [facility] BUN/CREAT 13 8 - 27 [facility] system Protein [Mass/volume] in Serum or Plasma 6.7 G/DL 6.3 - 8.2 [facility] Albumin [Mass/volume] in Serum or Plasma 3.2 G/DL 3.9 - 5.0 L [facility] Globulin [Mass/volume] in Serum by calculation 3.5 GM/DL 2.4 - 3.2 H [facility] A/G RATIO 0.9 0.8 - 2.0 Health system Calcium [Mass/volume] in Serum or Plasma 9.0 MG/DL 8.4 - 10.2 [facility] Bilirubin.total [Mass/volume] in Serum or Plasma <0.7 MG/DL 0.2 - 1.3 [facility] Alkaline phosphatase [Enzymatic activity/volume] in Serum or Plasma 159 U/L 38 - 126 H [facility] Aspartate aminotransferase [Enzymatic activity/volume] in Serum or Plasma 20 U/L 5 - 40 [facility] Alanine aminotransferase [Enzymatic activity/volume] in Seru m or Plasma 17 U/L 7 - 56 [facility] Anion gap 3 in Serum or Plasma 11.0 mmol/L 8.0 - 16.0 [facility] AGE [address] [facility] al NON-AA GFR >60 mL/min [facility] ital AFR AMER GFR >60 mL/min [facility] Male GFR In terprentation [...] >32 mL/min Normal ID Date Data Source [id number] 06/26/2019 05:25:00 PM EST [facility] Name Value Range Interpretation Code Description Data Tania rce(s) Supporting Document(s) C reactive protein [Mass/volume] in Serum or Plasma by High sensitivity method 67.29 MG/L 1.00 - 3.00 H [facility] CDC/S HS-CRP CUT-OFF: RELATIVE RISK: <1.0 mg/L Low 1.0 - 3.0 mg/L Average >3.0 mg/L High Optimally, the average of HS-CRP results repeated two weeks apart should be used for risk assessment. ID Date Data Source [id number] 06/26/2019 05:15:00 PM [facility] Name Value Range Interpretation Code Description Data Tania rce(s) Supporting Document(s) Erythrocyte sedimentation rate by Westergren method 50 mm/hr 0 - 20 H [facility] SED RATE REENTER 50 [facility] ID Date Data Source [id number] 06/26/2019 04:17:00 PM EST [facility] Name Value Range Interpretation Code Description Data Tania rce(s) Supporting Document(s) COMPREHENSIVE METABOLIC PANEL [facility] COMPREHENSIVE METABOLIC PANEL Sodium [Moles/volume] in Serum or Plasma 139 mEq/L 134 - 153 [facility] Potassium [Moles/volume] in Serum or Plasma 4.3 mEq/L 3.6 - 5.0 [facility] Chloride [Moles/volume] in Serum or Plasma 99 mEq/L 98 - 107 [facility] Carbon dioxide, total [Moles/volume] in Serum or Plasma 27 MEQ/L 22 - 30 [facility] Glucose [Mass/volume] in Serum or Plasma 264 MG/DL 65 - 110 H [facility] BUN 11 MG/DL 7 - 21 [facility] al Creatinine [Mass/volume] in Serum or Plasma 1.0 MG/DL 0.7 - 1.5 [facility] BUN/CREAT 11 8 - 27 [facility] al Protein [Mass/volume] in Serum or Plasma 6.3 G/DL 6.3 - 8.2 [facility] Albumin [Mass/volume] in Serum or Plasma 3.2 G/DL 3.9 - 5.0 L [facility] Globulin [Mass/volume] in Serum by calculation 3.1 GM/DL 2.4 - 3.2 [facility] A/G RATIO 1.0 0.8 - 2.0 Health system Calcium [Mass/volume] in Serum or Plasma 8.7 MG/DL 8.4 - 10.2 [facility] Bilirubin.total [Mass/volume] in Serum or Plasma <0.7 MG/DL 0.2 - 1.3 [facility] Alkaline phosphatase [Enzymatic activity/volume] in Serum or Plasma 153 U/L 38 - 126 H [facility] Aspartate aminotransferase [Enzymatic activity/volume] in Serum or Plasma 24 U/L 5 - 40 [facility] Alanine aminotransferase [Enzymatic activity/volume] in Seru m or Plasma 18 U/L 7 - 56 [facility] Anion gap 3 in Serum or Plasma 13.0 mmol/L 8.0 - 16.0 [facility] AGE 84 yrs [facility] NON-AA GFR >60 mL/min [facility] ital AFR AMER GFR >60 mL/min [facility] Male GFR In terprentation [...] >32 mL/min Normal ID Date Data Source [id number] 06/26/2019 03:52:00 PM EST [facility] Name Value Range Interpretation Code Description Data Tania rce(s) Supporting Document(s) CBC W/AUTOMATED DIFF [facility] COMPLETE BLOOD COUNT Leukocytes [#/volume] in Blood by Automated count 9.8 10^3/uL 4.2 - 1 1.0 [facility] Erythrocytes [#/volume] in Blood by Automated count 2.55 10^6/uL 4. 50 - 6.30 L [facility] Hemoglobin [Mass/volume] in Blood 7.8 g/dL 14.0 - 16.0 L [facility] Hematocrit [Volume Fraction] of Blood by Automated count 24.2 % 4 1.0 - 51.0 L [facility] Erythrocyte mean corpuscular volume [Entitic volume] by Auto mated count 94.9 fL 80.0 - 94.0 H [facility] Erythrocyte mean corpuscular hemoglobin [Entitic mass] by Automated count 30.6 pg 27.0 - 34.0 [facility] Erythrocyte mean corpuscular hemoglobin concentration [Mass/volume] by Automated count 32.2 g/dL 31.0 - 36.0 [facility] Erythrocyte distribution width [Ratio] by Automated count 15.4 % 11.5 - 14.8 H [facility] Platelets [#/volume] in Blood by Automated count 434 10^3/uL 150 - 45 0 [facility] Platelet mean volume [Entitic volume] in Blood by Automated count 9.6 fL 7.4 - 10.4 [facility] Neutrophils/100 leukocytes in Blood by Automated count 79.3 % 37. 0 - 80.0 [facility] Lymphocytes/100 leukocytes in Blood by Manual count 13.3 % 25.0 - 40.0 L [facility] Monocytes/100 leukocytes in Blood by Automated count 4.8 % 3.0 - 8.0 [facility] Eosinophils/100 leukocytes in Blood by Automated count 1.9 % 0.0 - 7.0 [facility] Basophils/100 leukocytes in Blood by Automated count 0.4 % 0.0 - 2.0 [facility] %IG 0.3 % 0.0 - [facility] 0.0 [facility].0 [facility] al Neutrophils [#/volume] in Blood by Automated count 7.79 10^3/uL 2.00 - 6.90 H [facility] Lymphocytes [#/volume] in Blood by Automated count 1.31 10^3/uL 0.60 - 3.40 [facility] Monocytes [#/volume] in Blood by Automated count 0.47 10^3/uL 0.00 - 0.90 [facility] Eosinophils [#/volume] in Blood by Automated count 0.19 10^3/uL 0.00 - 0.70 [facility] Basophils [#/volume] in Blood by Automated count 0.04 10^3/uL 0.00 - 0.20 [facility] #IG 0.03 10^3/uL 0.00 - 0.10 [facility] #NRBC 0.00 10^3/uL 0.00 - 0.00 [facility] MANUAL DIFF NOT INDICATED [facility] RBC MORPH NOT INDICATED [facility] ID Date Data Source [id number] 06/26/2019 08:43:26 AM EST [facility] Name Value Range Interpretation Code Description Data Tania rce(s) Supporting Document(s) Progress Note [facility] YRAWEn1bJjSSDpZo16/EKIygOVTjt7YwHKdmRLl0CQidEUCcQ4SjAVX0bM5xPFD0WTjCDfRhPKmwJqBr lbm MbDdzCZiVfETSqNbqOPhFlITkeUkllfQXxDG9ExCK7AILlH49zNRXsULGoG0FfMMCjWXe+Ry3PMELciE UdYK9AUvmF3W2Qm8eZYG1JnS/SZEHRI5gR6frSLFI78Y36B8n2iL3mA74YxEZ1JafFGFmU/v9tCnxRCW +Fg2FZODe9O1ILv57F2/C3JEHUhTf//dObWrP8hjv1 f/9nklkzPDd//sFRJAjrsmTPk8pCtuH1gBgZN7e/UYb8F31vdERbOGE4Kf1G88auAl0H4xpcHsIc2JG3 38yDn1pvmx9dB69XuXLgyd4jA+KUUnwVto2Cq+NaIH87AANewNtflASXTtrC4vOU8wSsMKbhohj4gKKr qczaXQX0d9xy9l2Rh8ZemJ03iSI8ZNMDI4ta9MRN29 ww7yGrglME+14c+[facility]/p5jDkTMC/x4LVlk2WfEtF9awQufa73GGbndz6JfO45CjnQG6C4cBDGQx8N+zT [file] ID Date Data Source [id number] 06/22/2019 07:01:17 AM [facility] Name Value Range Interpretation Code Description Data Tania rce(s) Supporting Document(s) Operative Note [facility] MLYBJy3hDzVFBnCk65/LWBwfWZEkm1PiIRxvBZn9YLwtLMQjS8BgJUO7jU1nLGZ5YIoHDtTzABfmGzQ6 lbm [file] GmgjX3dbBpHTurWfD2WK6YHJJTN5BYSs== ID Date Data Source [id number] 06/19/2019 05:39:00 PM [facility] Name Value Range Interpretation Code Description Data Tania rce(s) Supporting Document(s) Erythrocyte sedimentation rate by Westergren method 50 mm/hr 0 - 20 H [facility] SED RATE REENTER 50 [facility] ID Date Data Source [id number] 06/19/2019 04:56:00 PM [facility] Name Value Range Interpretation Code Description Data Tania rce(s) Supporting Document(s) C reactive protein [Mass/volume] in Serum or Plasma by High sensitivity method 135.58 MG/L 1.00 - 3.00 H [facility]/S HS-CRP CUT-OFF: RELATIVE RISK: <1.0 mg/L Low 1.0 - 3.0 mg/L Average >3.0 mg/L High Optimally, the average of HS-CRP results repeated two weeks apart should be used for risk assessment. ID Date Data Source [id number] 06/19/2019 04:56:00 PM EST [facility] Name Value Range Interpretation Code Description Data Tania rce(s) Supporting Document(s) CBC W/AUTOMATED DIFF [facility] COMPLETE BLOOD COUNT Leukocytes [#/volume] in Blood by Automated count 11.3 10^3/uL 4.2 - 11.0 H [facility] Erythrocytes [#/volume] in Blood by Automated count 2.69 10^6/uL 4. 50 - 6.30 L [facility] Hemoglobin [Mass/volume] in Blood 8.0 g/dL 14.0 - 16.0 L [facility] Hematocrit [Volume Fraction] of Blood by Automated count 25.1 % 4 1.0 - 51.0 L [facility] Erythrocyte mean corpuscular volume [Entitic volume] by Auto mated count 93.3 fL 80.0 - 94.0 [facility] Erythrocyte mean corpuscular hemoglobin [Entitic mass] by Automated count 29.7 pg 27.0 - 34.0 [facility] Erythrocyte mean corpuscular hemoglobin concentration [Mass/volume] by Automated count 31.9 g/dL 31.0 - 36.0 [facility] Erythrocyte distribution width [Ratio] by Automated count 15.0 % 11.5 - 14.8 H [facility] Platelets [#/volume] in Blood by Automated count 439 10^3/uL 150 - 45 0 [facility] Platelet mean volume [Entitic volume] in Blood by Automated count 9.5 fL 7.4 - 10.4 [facility] Neutrophils/100 leukocytes in Blood by Automated count 79.7 % 37. 0 - 80.0 [facility] Lymphocytes/100 leukocytes in Blood by Manual count 13.6 % 25.0 - 40.0 L [facility] Monocytes/100 leukocytes in Blood by Automated count 5.7 % 3.0 - 8.0 [facility] Eosinophils/100 leukocytes in Blood by Automated count 0.4 % 0.0 - 7.0 [facility] Basophils/100 leukocytes in Blood by Automated count 0.2 % 0.0 - 2.0 [facility] %IG 0.4 % 0.0 - 0.[address] [facility] al %NRBC 0.0 % 0.0 - 0.0 [facility] al Neutrophils [#/volume] in Blood by Automated count 9.02 10^3/uL 2.00 - 6.90 H [facility] Lymphocytes [#/volume] in Blood by Automated count 1.54 10^3/uL 0.60 - 3.40 [facility] Monocytes [#/volume] in Blood by Automated count 0.64 10^3/uL 0.00 - 0.90 [facility] Eosinophils [#/volume] in Blood by Automated count 0.05 10^3/uL 0.00 - 0.70 [facility] Basophils [#/volume] in Blood by Automated count 0.02 10^3/uL 0.00 - 0.20 [facility] #IG 0.04 10^3/uL 0.00 - 0.10 [facility] #NRBC 0.00 10^3/uL 0.00 - 0.00 [facility] MANUAL DIFF NOT INDICATED [facility] RBC MORPH NOT INDICATED [facility] spital ID Date Data Source [id number] 06/19/2019 04:40:00 PM EST [facility] Name Value Range Interpretation Code Description Data Tania rce(s) Supporting Document(s) COMPREHENSIVE METABOLIC PANEL [facility] COMPREHENSIVE METABOLIC PANEL Sodium [Moles/volume] in Serum or Plasma 133 mEq/L 134 - 153 L [facility] Potassium [Moles/volume] in Serum or Plasma 5.0 mEq/L 3.6 - 5.0 [facility] Chloride [Moles/volume] in Serum or Plasma 99 mEq/L 98 - 107 [facility] Carbon dioxide, total [Moles/volume] in Serum or Plasma 20 MEQ/L 22 - 30 L [facility] Glucose [Mass/volume] in Serum or Plasma 271 MG/DL 65 - 110 H [facility] BUN 27 MG/DL 7 - [address] [facility] al Creatinine [Mass/volume] in Serum or Plasma 1.2 MG/DL 0.7 - 1.5 [facility] BUN/CREAT 23 8 - 27 Health system Protein [Mass/volume] in Serum or Plasma 5.7 G/DL 6.3 - 8.2 L [facility] Albumin [Mass/volume] in Serum or Plasma 2.9 G/DL 3.9 - 5.0 L [facility] Globulin [Mass/volume] in Serum by calculation 2.8 GM/DL 2.4 - 3.2 [facility] A/G RATIO 1.0 0.8 - 2.0 Health system Calcium [Mass/volume] in Serum or Plasma 8.6 MG/DL 8.4 - 10.2 [facility] Bilirubin.total [Mass/volume] in Serum or Plasma <0.7 MG/DL 0.2 - 1.3 [facility] Alkaline phosphatase [Enzymatic activity/volume] in Serum or Plasma 119 U/L 38 - 126 [facility] Aspartate aminotransferase [Enzymatic activity/volume] in Serum or Plasma 19 U/L 5 - 40 [facility] Alanine aminotransferase [Enzymatic activity/volume] in Seru m or Plasma 14 U/L 7 - 56 [facility] Anion gap 3 in Serum or Plasma 14.0 mmol/L 8.0 - 16.0 [facility] AGE [address] [facility] al NON-AA GFR >60 mL/min [facility] ital AFR AMER GFR >60 mL/min [facility] Male GFR In terprentation [...] >32 mL/min Normal ID Date Data Source [id number] 06/19/2019 04:38:00 PM EST [facility] Name Value Range Interpretation Code Description Data Tania rce(s) Supporting Document(s) Vancomycin [Mass/volume] in Serum or Plasma --trough 17.3 ug/mL [facility] TROUG H First trough is drawn 30 minutes prior to fourth dose. If patient is not hemodynamically stable, a trough is obtained as deemed medically necessary. If patient is hemodynamically stable, a trough should be drawn once a week. The trough is drawn 30 minutes prior to the next dose. Mild Infections Trough 10-15 mg/L Severe Infections Trough 15-20 mg/L [employer] Infections Trough 20-25 mg/L *Severe Infections - Endocarditis, Osteomyelitis, Hospital Acquired Pneumonia, Sepsis ID Date Data Source [id number] 06/18/2019 12:41:02 PM [facility] Name Value Range Interpretation Code Description Data Tania rce(s) Supporting Document(s) History and Physical [facility] TQIOSh9pShHPRbZy57/VANhjJSQuj8JoVWzgHUe2AWttPTMxH9UsPYU9xK9iRQY2JBpNScCfIBqgQpMf m [file] ICAgICAgICAgICAgICAgICAgICAgICAgICAgICAgICAgICAgICAgICAgICAgICAgICAgICAgICAgICAg ICAgICAgICAgICANCiAgICAgICAgICAgICAgICAgIC AgICAgICAgICAgICAgICAgICAgICAgICAgICAgICAgICAgICAgICAgICAgICAgICAgICAgICAgICAgIC AgICAgICAgICAgICAgICAgICAgICANCiAgICAgICAgICAgICAgICAgICAgICAgICAgICAgICAgICAgIC AgICAgICAgICAgICAgICAgICAgICAgICAgICAgICAg ICAgICAgICAgICAgICAgICAgICAgICAgICAgICAgICANCiAgICAgICAgICAgICAgICAgICAgICAgICAg ICAgICAgICAgICAgICAgICAgICAgICAgICAgICAgICAgICAgICAgICAgICAgICAgICAgICAgICAgICAg ICAgICAgICAgICAgICANCiAgICAgICAgICAgICAgIC AgICAgICAgICAgICAgICAgICAgICAgICAgICAgICAgICAgICAgICAgICAgICAgICAgICAgICAgICAgIC AgICAgICAgICAgICAgICAgICAgICAgICANCiAgICAgICAgICAgICAgICAgICAgICAgICAgICAgICAgIC AgICAgICAgICAgICAgICAgICAgICAgICAgICAgICAg ICAgICAgICAgICAgICAgICAgICAgICAgICAgICAgICAgICANCiAgICAgICAgICAgICAgICAgICAgICAg ICAgICAgICAgICAgICAgICAgICAgICAgICAgICAgICAgICAgICAgICAgICAgICAgICAgICAgICAgICAg ICAgICAgICAgICAgICAgICANCiAgICAgICAgICAgIC AgICAgICAgICAgICAgICAgICAgICAgICAgICAgICAgICAgICAgICAgICAgICAgICAgICAgICAgICAgIC AgICAgICAgICAgICAgICAgICAgICAgICAgICANCiAgICAgICAgICAgICAgICAgICAgICAgICAgICAgIC AgICAgICAgICAgICAgICAgICAgICAgICAgICAgICAg ICAgICAgICAgICAgICAgICAgICAgICAgICAgICAgICAgICAgICANCiAgICAgICAgICAgICAgICAgICAg ICAgICAgICAgICAgICAgICAgICAgICAgICAgICAgICAgICAgICAgICAgICAgICAgICAgICAgICAgICAg ICAgICAgICAgICAgICAgICAgICANCjw/pLYuM4vfmR ShobF7S0twHy9ZTl9ROH8em4MdIMHtWUprmgZeGoyMXnOiVBUuTahVBvs6MDkcWP5HuBEbS0IvJ6ZvXP xuXC5IMCRtFFRixQKbAJJeEIIqFlG4ZSYmCEqcEP6YyTRqOTmjLWUwGAYsLuXzSGOlUHLvMLNgWAIfKT SZJI6VVyNwY0UirB99ACPYOa3+DQplbmRvYmoNCjMx YRRbg9BmPJs6YC9YVWRzWdabt7RfGqDnUXCJYQbwNU8SWMG7NNPrICVvBy2PEATeL063yiBlXT6NBs8W KyCcWL6vvm5IPfOfSUAsTknXNxy9JJnzHI2FhJIeRZvUBjYbRvvaZ6SnGFZJoJD2IIILPcEAURV6GQYv LtT3LaQfVXmwRME0FWWcZD5lLGfiVY1IQGL8RFnhTF RyZHCmW1zPEvWaODVgVgQvqWmyXL0BKeTtY2NqppFnuIMdTJLzMSVNJc0+DQplbmRvYmoNCjMzIDAgb2 LxBYs1LF0YXBKySRqyQW4FYJTqjT1dCLyyVG0ANfKpYDAvOHOIJiFnS91teXSoRQx2V7MuIhXuYWLhCl lsZXMgPDwvTmFtZXMgWyBdDQogID4+ID4+VHqjNZ2V EOqydnLdFVKxPu9PKWUaTABcIF7vTHXeFQAvT2F6pNobVFNCXwKkL2ysiocoQV0qLUPwG046vTqnbsRm WSObNCBnUc8SDNOwLMM5MWKzmEPxWlKmQDXSIXlhTZ3ZcEGgDSG2wP3oXAgqBQDzICHfX6wJSlVkuIll KF63nUrthhHkkGNjWGh+Ck1FSD6se1JrRJs1huEpJR mdEXO9BWciCPQwPCZcRWSfJUZ5ZYI8ZZUOXkFhPGWlWZVaZAslDYZxEZBpkj6ALKErLLKfHAE5ETXdFX SlRPTuCJsdGHDqMFWrLYp5IFBgUKTpIA2VRdOgDRMwOCCfUTtcAHSzCEOgic8BXQKyAHJbJwI7KmDpLF SoOJIgLTopELDoAXYkKLqgJVJqIXGkZU4OJlJoCXJy DAzkETTrFNJlRQQseu3UXYOaGFRlCoN3HQJtYHXpHTHbWWukRRSjFNLtTLdqAJMvDCXpEF7XEoZaIMCm AEY9JoPcZWPbYYMtfs1NFQWoZUJbHnS2QLOxUSYbLYMuEBigTPNwVLDxLFpmTUMqBAIxLM6TDgFjVDZh YWD8ZPFiCPUrDXYrda1DZGAiYQLzCht7CkDySGRkUM ScBOpvRSXrYXKhLNDaOVPmUTAkXF2ZQwZkKUWdUAL7VEijGSAgLSRfvj0DZZIxMDWlARW8RTJzDWSyKU RgSMthNIKhQQQ8Jdo0YOEcJGDfVL6FWrQkEOWaSHYcBrtiXZVmUTRqcf9AZLKiMDRzIyIdLjXmAMGkHX PoPHsqKGOqUCI7IeW2WUBvXRTcHM5MVmDuGIZzJsis IMDcCUYbIUFkwz4HGIFjMZPkCDUtUaUdCKQxOCSsPLmrCXBaFPG7SKUdJEGlCBJbSJ1QWvFxEGUtZpc2 GzIzUJFdMNZjec5XUSZyQFRkCJtcZtUoNBHaYPQgMOuvRRDhBWA3IECzZRYwALKzJF7CWnIbSZRcZkAp EYrhNUVmUNAjff4FWMNoBQCiUZDcCiHpYUGiXRQtNF rpSKRjSGUaZiD8QTSlWTDlKS0VDiMsWLDcPnAqMGInOTVtHEMdbt7XAEAiOFHlYfU8DpGsSOQwUJIbOR faBWZnNYLwRkIgVZQlDAHtYR2LPpLnHSimSZGKLwy7KDdbZ0u3DRBgYJ7BH3Zce2RfZiTvCKGBQLypIT 6abtXfPXRiVu5EV9bNGjs8JVfeXqOkWLV3L2QeH3K7 MsehNIUvWtUvCLP1PjVuFq7kLRn1RIH4IJH5YJEoX4FpVlgvCTH4O6RiWyJ7VtPpTSYtLuEpMS6CEi9E LhV7DHK9fFJrBi2NZzM8HhpANjXwKN7MKSp= ID Date Data Source [id number] 06/15/2019 02:59:13 PM EST [facility] Name Value Range Interpretation Code Description Data Tania e(s) Supporting Document(s) Discharge Summary [facility] BCNRKn2dVhSVPaUg38/KGOpjHGXvt0MuDPleTEm4SNkrRJMgS5AuJEG9pT2wVNQ0RRwVDtXyTMmiHxR8 lbm HlGcfZBnYrWRJaBewGWbDzIGohAqniuIFyDQ6AbSI1MPNlJ20bACKvPOUwK2ZuLHU0EJS+Qf2NXSKnyP VzGZ2QEcqO6Q2se6eIJW3z4E+waNEgAWKZy+Zx3MefnwIGqq5sMfMHcClRcs11tgRYwp8iF1HiWq2CVc ZsfSVZYXKuBWpGrcH860mDJMZU/x1wPgH4acHN7F/1 BMjtJD4BG/6O1Fhio5fv/shuIg+4jnbC/CByv8N7X1kfSlO/qFHMNLnkNHcftX20gJx2sQcgEF88ZHk/ L2mSYc4a2ISIDQ+OUcjUFPaT2wfIJnkXMNtpsU9BkxKFclDc5JXmdReHi/apiNtojT5ia4MDLp8ncIi4 ezgH3e7WPEdU5pMmZbZaDmUeJdUX3exbPki1LPwyDi KLWOxOJo9orUrYs1iuBXPVIItG6Se9uUwDrfZV+712eT8o2aNeKervd7vjs5WDKwviIF1PhT0Kerf1+B GlfwbI7W28RwbvXAsmhPOd7rE/Vy0Vvyx0sXntyD2xvvKC8CE1azMrt+cbji7Iw5VkCuIRYCE++7NMzS BIheeUjpEzdjyaxTZNLaPhqscZcXvTjdKJVirdnMXf [file] [facility]/hKaqoE9gFvdWyRZ3Jehwc2/8qiVX7J+CtfgclMYd7uG+pmpwkydJlMum3hyzePKhewK9Pk2sPs+ [file] AgICAgICAgICAgICAgICAgICAgICAgICAgICAgICAgICAgICAgICAgICAgICAgICAgICAgICAgICAgIC AgICAgICANCiAgICAgICAgICAgICAgICAgICAgICAg ICAgICAgICAgICAgICAgICAgICAgICAgICAgICAgICAgICAgICAgICAgICAgICAgICAgICAgICAgICAg ICAgICAgICAgICAgICAgICANCiAgICAgICAgICAgICAgICAgICAgICAgICAgICAgICAgICAgICAgICAg ICAgICAgICAgICAgICAgICAgICAgICAgICAgICAgIC AgICAgICAgICAgICAgICAgICAgICAgICAgICANCiAgICAgICAgICAgICAgICAgICAgICAgICAgICAgIC AgICAgICAgICAgICAgICAgICAgICAgICAgICAgICAgICAgICAgICAgICAgICAgICAgICAgICAgICAgIC AgICAgICAgICANCiAgICAgICAgICAgICAgICAgICAg ICAgICAgICAgICAgICAgICAgICAgICAgICAgICAgICAgICAgICAgICAgICAgICAgICAgICAgICAgICAg ICAgICAgICAgICAgICAgICAgICANCiAgICAgICAgICAgICAgICAgICAgICAgICAgICAgICAgICAgICAg ICAgICAgICAgICAgICAgICAgICAgICAgICAgICAgIC AgICAgICAgICAgICAgICAgICAgICAgICAgICAgICANCiAgICAgICAgICAgICAgICAgICAgICAgICAgIC AgICAgICAgICAgICAgICAgICAgICAgICAgICAgICAgICAgICAgICAgICAgICAgICAgICAgICAgICAgIC AgICAgICAgICAgICANCiAgICAgICAgICAgICAgICAg ICAgICAgICAgICAgICAgICAgICAgICAgICAgICAgICAgICAgICAgICAgICAgICAgICAgICAgICAgICAg ICAgICAgICAgICAgICAgICAgICAgICANCiAgICAgICAgICAgICAgICAgICAgICAgICAgICAgICAgICAg ICAgICAgICAgICAgICAgICAgICAgICAgICAgICAgIC AgICAgICAgICAgICAgICAgICAgICAgICAgICAgICAgICANCiAgICAgICAgICAgICAgICAgICAgICAgIC AgICAgICAgICAgICAgICAgICAgICAgICAgICAgICAgICAgICAgICAgICAgICAgICAgICAgICAgICAgIC AgICAgICAgICAgICAgICANCjw/yPBcW5qmiNBrtvA7 E4ylOg8ZQy4MCD8pi4LxUOUaDTolxhXeJokDOpFkWSXbEqpPVro2HBlkQV2NsBUbV8VeA9ZhNTxqEE1S SRUoNOJzsLEmMVIgSMLvFuU9WAZhMScfCP2EoRXhXXsxXSAmOZGqDkVuKQTtMOBhPKFySNXiJGUPIWXn LGCqXfAnEOepIQ2Ug1XceAA3WTg+Oi0TOT6tm4WaEH kqDOLdOH1ooj7GXMxQYoZjL3BffaS9NSW5OOEmMl5VOVUjZJWyhFCqCwRgBBBSWvIfO7YkjB66CEMHJm 4+GKyxreJrWehNKxP5IQTqm6AuZKh9RT0ZAXOhRRw2eKUlYTrsP0qodvbvQSJ5zD2rfwogWohgLaRzHH RgG2VkgCPpWFQPPCFltLXfNs4nWK1mDMM2ZLCfAmY0 XOOWEZ8FOIIyZYPtnYVhDGRxUWSXQP2MTCblKJE9VFFygwUsdBUrOMagUP2WCQHhcaFeLvLyWNYMCBq+ Fx4BNH6my4AsETjxEhCcAO1tum3QWNvYUuVpZ3H9gLOpG4X6JGjzDa7IKJHhKBVrEwPmMHYZIEclZW5V JB3jokE9BF2CmXHiNBSlTKLonPVqEGa3T43rfCOqPH pnYO9LUOU+Sammy+Ot3KEJFkATFyGUMdYsBkDSGAYlWdJ7CnW4ZUp4LsP7TiLT58vAslklCfPPemQF5DHL 8bOXQuPWOCNI8AwMBuoS6yzyLoAMTzWWIALdQkO78lcCWcZHSiNQB5LGTxVv4HLMOwH8VlkeBxuTifvp EgAZVfJUERMY0KHPhvnqZhmLVqgMvdWC89fZkzDP1U Xn5DPkEkUW1sxd9GmTPiDc9DHOCcRI0QIJJdEOKwLEUpVKZ8HNWsHmViIRqxFNMtCROrXIQ9KLJdZYGd IX4EUqDuWAWvFyOnZLdhOPJnNFRyea1NGHSeIVPoUzA0DaXlDLHlSFKmMOxwCIUaHXXmURF5GZXnLPLs VL4BTbIaNTBvQOD0QzIrLFQiGKRecw0NUYMzFDIfPT NrRtGpVDZrWLMuYZdwZWOeHJI5Bbe6FILuAKWoLB5FEjJySVWsBJe3NnyeCTHaKHKeqt7ENQRlVLNzAp X5NGXzSJMuQPKnCEduAGZfBXUfRJqaECRuPMKbGI9UWcJbJMTeGCD0MDXxWYWmWJZrrp0GKLKsCPFwBI zsKdWvYZWaJAEoWQoaSTQnBLG0NTF5KICpLMEbUF8K GvFrCBErFQwgNEVoCIQgJPHuxa6GPEEhIJPuVLDtUTLgFWHbWZQfIHnxVEItYSS5XRQ0POCdJJKzMN9M KtSwSHEcZPj9JCWnSEWsLGXdhs4WBGUnOLAkLZD6KPZoEJSiKAOnCBqfZYGbESM8JtKfAUCsHMQaKY6G IcDlLGSjTDu1NrwtQFJhSWMqrr7YEGBjEMGbWJp2PV JkTSFnEDRfIKfcQTTbAEQuSUVxAEXhDDApUA1JDtOxUNKnLbGtBSJoPRJhHNPiux4IDEBtGPInYEykBz JsABJjWEKcQZzwINDlFKPkJMrxDVJjYRDmMV7HAfMdOTSeMhJiZUQrBEIaVICocm2ZZODcMQEhWbOxPk XcQZMkFVLtAWx9qeDixFCaRHq2EB0DE7LtpxVhCmgO En8Vs787ORO4ZIVrLp3TO4sfQh0cHDFjYTGNUv3QDUg1JAp6VSE3TnG0RJirYTOxW0TrARr2M5N1GXjb KQw5JRl+VJraSkblSeC2ZtGqJIZ9RpLwDIC9VTGvYNRoGKF0EVY3Qj5aFNUDLh5+DQpzdGFydHhyZWYN JrNqRvB0JEpzHCOFZo5U ID Date Data Source [id number] 06/15/2019 11:42:34 AM [facility] Name Value Range Interpretation Code Description Data Tania rce(s) Supporting Document(s) Glucose [Mass/volume] in Capillary blood by Glucometer 106 mg/dL 70- 140 [facility] ID Date Data Source [id number] 06/15/2019 11:10:43 AM [facility] Value Range Interpretation Code Description Data Tania rce(s) Supporting Document(s) Leukocytes [#/volume] in Blood by Automated count 7.7 10*3/uL 4-10 [facility] Erythrocytes [#/volume] in Blood by Automated count 2.38 10*6/uL 4.6- 6.1 L [facility] Hemoglobin [Mass/volume] in Blood 7.5 g/dL 13.5-18 L [facility] Hematocrit [Volume Fraction] of Blood by Automated count 22.5 % 4 1-53 L [facility] Erythrocyte mean corpuscular volume [Entitic volume] by Auto mated count 94.7 fL 80-96 [facility] Erythrocyte mean corpuscular hemoglobin [Entitic mass] by Automated count 31.5 pg 27-33 [facility] Erythrocyte mean corpuscular hemoglobin concentration [Mass/volume] by Automated count 33.3 g/dL 32.0-36.0 [facility] width [Ratio] by Automated count 16.1 % 11.5-14.5 H [facility] Platelets [#/volume] in Blood by Automated count 285 10*3/uL 150-400 [facility] ID Date Data Source [id number] 06/15/2019 11:51:42 AM [facility] Value Range Interpretation Code Description Data Tania rce(s) Supporting Document(s) Ferritin [Mass/volume] in Serum or Plasma 171 ng/ml 30-400 [facility] ID Date Data Source [id number] 06/15/2019 03:28:23 PM [facility] Value Range Interpretation Code Description Data Tania rce(s) Supporting Document(s) Iron [Mass/volume] in Serum or Plasma 19 ug/dl 59-158 [facility] Transferrin [Mass/volume] in Serum or Plasma 116 mg/dL 200-360 [facility] Iron binding capacity [Mass/volume] in Serum or Plasma 161 ug/dl 228 -428 [facility] Iron saturation [Mass Fraction] in Serum or Plasma 12.0 % 20-55 [facility] ID Date Data Source [id number] 06/15/2019 11:35:13 AM [facility] Name Value Range Interpretation Code Description Data Tania rce(s) Supporting Document(s) Vancomycin [Mass/volume] in Serum or Plasma --trough 13.1 ug/mL 10.0- 20.0 [facility] ID Date Data Source [id number] 06/15/2019 08:42:26 AM [facility] XR SPINE LUMBAR 2-3 VIEWS [id number] RES ULTInterpreted by:Roderick Dickerson MDORDERING CLINICAL INFORMATION: [...] rce(s) Supporting Document(s) ID Date Data Source [id number] 06/15/2019 08:06:03 AM [facility] Name Value Range Interpretation Code Description Data Tania rce(s) Supporting Document(s) Glucose [Mass/volume] in Capillary blood by Glucometer 149 mg/dL 70- 140 H [facility] ID Date Data Source [id number] 06/15/2019 05:30:47 AM EST [facility] Name Value Range Interpretation Code Description Data Tania rce(s) Supporting Document(s) Leukocytes [#/volume] in Blood by Automated count 7.7 10*3/uL 4-10 [facility] Erythrocytes [#/volume] in Blood by Automated count 2.32 10*6/uL 4.6- 6.1 L [facility] Hemoglobin [Mass/volume] in Blood 7.2 g/dL 13.5-18 L [facility] Hematocrit [Volume Fraction] of Blood by Automated count 21.8 % 4 1-53 L [facility] Erythrocyte mean corpuscular volume [Entitic volume] by Auto mated count 94.2 fL 80-96 [facility] Erythrocyte mean corpuscular hemoglobin [Entitic mass] by Automated count 30.9 pg 27-33 [facility] Erythrocyte mean corpuscular hemoglobin concentration [Mass/volume] by Automated count 32.8 g/dL 32.0-36.0 [facility] distribution width [Ratio] by Automated count 16.4 % 11.5-14.5 H [facility] Platelets [#/volume] in Blood by Automated count 266 10*3/uL 150-400 [facility] Differential cell count method - Blood [facility] Neutrophils/100 leukocytes in Blood by Automated count 75 % [facility] Lymphocytes/100 leukocytes in Blood by Automated count 13 % [facility] Monocytes/100 leukocytes in Blood by Automated count 8 % [facility] Eosinophils/100 leukocytes in Blood by Automated count 4 % [facility] Basophils/100 leukocytes in Blood by Automated count 0 % [facility] Neutrophils [#/volume] in Blood by Automated count 5.81 10*3/uL 1.8-7 .0 [facility] Lymphocytes [#/volume] in Blood by Automated count 0.98 10*3/uL 1.2-4 .0 L [facility] Monocytes [#/volume] in Blood by Automated count 0.61 10*3/uL 0-0.8 [facility] Eosinophils [#/volume] in Blood by Automated count 0.30 10*3/uL 0-0.5 [facility] Basophils [#/volume] in Blood by Automated count 0.03 10*3/uL 0-0.2 [facility] Nucleated erythrocytes/100 leukocytes [Ratio] in Blood by Automated count 0 /100{WBCs} 0-0 [facility] ID Date Data Source [id number] 06/15/2019 05:50:31 AM [facility] Name Value Range Interpretation Code Description Data Tania rce(s) Supporting Document(s) Bicarbonate [Moles/volume] in Serum 23 mmol/L 22-29 [facility] Chloride [Moles/volume] in Serum or Plasma 105 mmol/L 98-107 [facility] Creatinine [Mass/volume] in Serum or Plasma 0.99 mg/dL 0.70-1.20 [facility] Glucose [Mass/volume] in Serum or Plasma 183 mg/dL 70-140 H [facility] Potassium [Moles/volume] in Serum or Plasma 3.6 mmol/L 3.4-5.1 [facility] Sodium [Moles/volume] in Serum or Plasma 138 mmol/L 136-145 [facility] Urea nitrogen [Mass/volume] in Serum or Plasma 17 mg/dL 8-23 [facility] Anion gap 3 in Serum or Plasma 10 mmol/L 8-15 [facility] Osmolality of Serum or Plasma by calculation 292 mosm/kg 275-300 [facility] Creatinine/Urea nitrogen [Mass Ratio] in Serum or Plasma 17 [facility] Calcium [Mass/volume] in Serum or Plasma 8.0 mg/dL 8.8-10.2 L [facility] Glomerular filtration rate/1.73 sq M pre dicted among non-blacks [Volume Rate/Area] in Serum or Plasma by Creatinine-based formula (MDRD) >6 0 [facility] Glomerular filtration rate/1.73 sq M pre dicted among blacks [Volume Rate/Area] in Serum or Plasma by Creatinine-based formula (MDRD) >60 [facility] ID Date Data Source [id number] 06/15/2019 05:50:31 AM [facility] Name Value Range Interpretation Code Description Data Tania rce(s) Supporting Document(s) Magnesium [Mass/volume] in Serum or Plasma 1.9 mg/dL 1.6-2.4 [facility] ID Date Data Source [id number] 06/15/2019 05:50:31 AM [facility] Name Value Range Interpretation Code Description Data Tania rce(s) Supporting Document(s) Phosphate [Mass/volume] in Serum or Plasma 2.9 mg/dL 2.5-4.5 [facility] ID Date Data Source [id number] 06/14/2019 08:48:50 PM [facility] Value Range Interpretation Code Description Data Tania rce(s) Supporting Document(s) Glucose [Mass/volume] in Capillary blood by Glucometer 234 mg/dL 70- 140 H [facility] ID Date Data Source [id number] 06/14/2019 04:39:20 PM [facility] Value Range Interpretation Code Description Data Tania rce(s) Supporting Document(s) Glucose [Mass/volume] in Capillary blood by Glucometer 81 mg/dL 70- 140 [facility] ID Date Data Source [id number] 06/14/2019 11:44:53 AM [facility] Value Range Interpretation Code Description Data Tania rce(s) Supporting Document(s) Glucose [Mass/volume] in Capillary blood by Glucometer 135 mg/dL 70- 140 [facility] ID Date Data Source [id number] 06/14/2019 09:47:45 AM [facility] Value Range Interpretation Code Description Data Tania rce(s) Supporting Document(s) Leukocytes [#/volume] in Blood by Automated count 9.5 10*3/uL 4-10 [facility] Erythrocytes [#/volume] in Blood by Automated count 2.53 10*6/uL 4.6- 6.1 L [facility] Hemoglobin [Mass/volume] in Blood 8.0 g/dL 13.5-18 L [facility] Hematocrit [Volume Fraction] of Blood by Automated count 23.9 % 4 1-53 L [facility] Erythrocyte mean corpuscular volume [Entitic volume] by Auto mated count 94.5 fL 80-96 [facility] Erythrocyte mean corpuscular hemoglobin [Entitic mass] by Automated count 31.5 pg 27-33 [facility] Erythrocyte mean corpuscular hemoglobin concentration [Mass/volume] by Automated count 33.4 g/dL 32.0-36.0 [facility] Erythrocyte distribution width [Ratio] by Automated count 16.5 % 11.5-14.5 H [facility] Platelets [#/volume] in Blood by Automated count 280 10*3/uL 150-400 [facility] ID Date Data Source [id number] 06/14/2019 10:11:42 AM [facility] Value Range Interpretation Code Description Data Tania rce(s) Supporting Document(s) Bicarbonate [Moles/volume] in Serum 22 mmol/L 22-29 [facility] Chloride [Moles/volume] in Serum or Plasma 103 mmol/L 98-107 [facility] Creatinine [Mass/volume] in Serum or Plasma 1.02 mg/dL 0.70-1.20 [facility] Glucose [Mass/volume] in Serum or Plasma 157 mg/dL 70-140 H [facility] Potassium [Moles/volume] in Serum or Plasma 3.8 mmol/L 3.4-5.1 [facility] Sodium [Moles/volume] in Serum or Plasma 134 mmol/L 136-145 L [facility] Urea nitrogen [Mass/volume] in Serum or Plasma 16 mg/dL 8-23 [facility] Anion gap 3 in Serum or Plasma 10 mmol/L 8-15 [facility] Osmolality of Serum or Plasma by calculation 283 mosm/kg 275-300 [facility] Creatinine/Urea nitrogen [Mass Ratio] in Serum or Plasma 15 [facility] Calcium [Mass/volume] in Serum or Plasma 8.0 mg/dL 8.8-10.2 [facility] Glomerular filtration rate/1.73 sq M pre dicted among non-blacks [Volume Rate/Area] in Serum or Plasma by Creatinine-based formula (MDRD) >6 0 [facility] Glomerular filtration rate/1.73 sq M pre dicted among blacks [Volume Rate/Area] in Serum or Plasma by Creatinine-based formula (MDRD) >60 [facility] ID Date Data Source [id number] 06/14/2019 10:11:42 AM [facility] Value Range Interpretation Code Description Data Tania rce(s) Supporting Document(s) Magnesium [Mass/volume] in Serum or Plasma 1.6 mg/dL 1.6-2.4 [facility] ID Date Data Source [id number] 06/14/2019 10:11:42 AM [facility] Value Range Interpretation Code Description Data Tania rce(s) Supporting Document(s) Phosphate [Mass/volume] in Serum or Plasma 2.3 mg/dL 2.5-4.5 [facility] ID Date Data Source [id number] 06/14/2019 08:00:16 AM [facility] Value Range Interpretation Code Description Data Tania rce(s) Supporting Document(s) Glucose [Mass/volume] in Capillary blood by Glucometer 120 mg/dL 70- 140 [facility] ID Date Data Source [id number] 06/13/2019 09:06:54 PM [facility] Name Value Range Interpretation Code Description Data Tania rce(s) Supporting Document(s) Glucose [Mass/volume] in Capillary blood by Glucometer 170 mg/dL 70- 140 H [facility] ID Date Data Source [id number] 06/13/2019 04:29:52 PM [facility] Name Value Range Interpretation Code Description Data Tania rce(s) Supporting Document(s) Glucose [Mass/volume] in Capillary blood by Glucometer 80 mg/dL 70- 140 [facility] ID Date Data Source [id number] 06/13/2019 01:30:35 PM [facility] Value Range Interpretation Code Description Data Tania rce(s) Supporting Document(s) ED Provider Note [facility] HGPOOd2mQcVCYjGw98/DGQszKNThr2HyBPkiLIt6FDxeWMDjH2FhJHQ5tH4dXXO3XIhYBgJyNMzpDyB8 lbm ZfOhaHEtJgEXTbIkwESwEaSXhxRjocnJZlHU4WhWD3FQFmE23bTUFeJODlY5UmSAZ3XRG+Nm2HPCQytM EkOT6AKwuH8M4bzyi0Zv0Z1a0UZsJlQj8WbRXy7GSqKYDPJ0WWlGr1laxUCYmUWIUyuW4o21qxJg9RUf EzDgum1oUtHjP0Qf64aUEduRYpbb/OVXA9hbXjjh+/ RomrRlfqH5+p22ae+2KH9PzVYRj6JenYNFqpt2ddsealtT9315iEugmMfrdVKd130AwzLuEEf/6fL9Tg J5XcN2lYjvKI5N3GhrysqfODVWuR92UjGrB95JdZQGZZFkU+cX3Syzdop9NzxDl7pE+gePjwl8+BkWh7 WkT9mN5qwSk4SKqWWrf9gVABTKhbJ01w9FFMlrre2C cAsfY4K8ia4BKfC7uIvTKml6vX+V9o/1Sy8JYEpCcp8gNpbiaBZ0rV5hWs2XuP0fG8lau4h43iWk1d2c ti5ks9jbnQfY9AoKgbm/pkmXQ2kHaPUrH7hCRCGpZmLShR71M/x6JlxS8VbZn7SOO0CJ9HbM46aymlfh enIBDZeXdhGsBX88/UoaKmSzCWUvligdLyvqY7v7Y7 siXOI5gPVXLFr2AGSMPVaBjtsbJKHGbbM59UDDCpsHS+nheWMZhKMxrkZXZ6eDmVY/BwiWIyt6dNIXRw KnOUpkBqspqzkkFjaQQ9UKWsKIVBi+NrwTSls2sSrwRQi9qTaPmAuAKt9eMrzyZIin8eRdWVJSxvpzmh +4aXuzGkl2nsxTeoqnYmhWCwBvwimSMNakE5zS23ds wGOoJ18SiU8VNZjCn9oAiWaivDgKdEsL27iu/Y4c7Wq0Ul++tev6h1xFmzd8IxJScW7wHslJ5d2Fj2UD 1N52m/77ddZuYmZmsCeSZKg8ee2NQmeMfxuqw+ncCYFb9TuHxB188wscgcgTa71Vzgm+ucLJQb5O+ADIN [file] ID Date Data Source [id number] 06/13/2019 11:55:19 AM [facility] Name Value Range Interpretation Code Description Data Tania rce(s) Supporting Document(s) Glucose [Mass/volume] in Capillary blood by Glucometer 133 mg/dL 70- 140 [facility] ID Date Data Source [id number] 06/13/2019 10:39:35 AM [facility] Name Value Range Interpretation Code Description Data Tania rce(s) Supporting Document(s) Leukocytes [#/volume] in Blood by Automated count 9.0 10*3/uL 4-10 [facility] Erythrocytes [#/volume] in Blood by Automated count 2.86 10*6/uL 4.6- 6.1 L [facility] Hemoglobin [Mass/volume] in Blood 8.9 g/dL 13.5-18 L [facility] Hematocrit [Volume Fraction] of Blood by Automated count 27.1 % 4 1-53 L [facility] Erythrocyte mean corpuscular volume [Entitic volume] by Auto mated count 94.7 fL 80-96 [facility] Erythrocyte mean corpuscular hemoglobin [Entitic mass] by Automated count 31.1 pg 27-33 [facility] Erythrocyte mean corpuscular hemoglobin concentration [Mass/volume] by Automated count 32.8 g/dL 32.0-36.0 [facility] E[facility]th[facility] distribution width [Ratio] by Automated count 16.4 % 11.5-14.5 H [facility] Platelets [#/volume] in Blood by Automated count 289 10*3/uL 150-400 [facility] Differential cell count method - Blood [facility] Neutrophils/100 leukocytes in Blood by Automated count 85 % [facility] Lymphocytes/100 leukocytes in Blood by Automated count 9 % [facility] Monocytes/100 leukocytes in Blood by Automated count 5 % [facility] Eosinophils/100 leukocytes in Blood by Automated count 1 % [facility] Basophils/100 leukocytes in Blood by Automated count 0 % [facility] Neutrophils [#/volume] in Blood by Automated count 7.63 10*3/uL 1.8-7 .0 H [facility] Lymphocytes [#/volume] in Blood by Automated count 0.80 10*3/uL 1.2-4 .0 L [facility] Monocytes [#/volume] in Blood by Automated count 0.46 10*3/uL 0-0.8 [facility] Eosinophils [#/volume] in Blood by Automated count 0.11 10*3/uL 0-0.5 [facility] Basophils [#/volume] in Blood by Automated count 0.04 10*3/uL 0-0.2 [facility] Nucleated erythrocytes/100 leukocytes [Ratio] in Blood by Automated count 0 /100{WBCs} 0-0 [facility] ID Date Data Source [id number] 06/13/2019 11:11:53 AM EST [facility] Name Value Range Interpretation Code Description Data Tania rce(s) Supporting Document(s) Bicarbonate [Moles/volume] in Serum 23 mmol/L 22-29 [facility] Chloride [Moles/volume] in Serum or Plasma 103 mmol/L 98-107 [facility] Creatinine [Mass/volume] in Serum or Plasma 1.03 mg/dL 0.70-1.20 [facility] Glucose [Mass/volume] in Serum or Plasma 214 mg/dL 70-140 H [facility] Potassium [Moles/volume] in Serum or Plasma 3.9 mmol/L 3.4-5.1 [facility] Sodium [Moles/volume] in Serum or Plasma 138 mmol/L 136-145 [facility] Urea nitrogen [Mass/volume] in Serum or Plasma 16 mg/dL 8-23 [facility] Anion gap 3 in Serum or Plasma 12 mmol/L 8-15 [facility] Osmolality of Serum or Plasma by calculation 294 mosm/kg 275-300 [facility] Creatinine/Urea nitrogen [Mass Ratio] in Serum or Plasma 16 [facility] Calcium [Mass/volume] in Serum or Plasma 8.5 mg/dL 8.8-10.2 L [facility] Glomerular filtration rate/1.73 sq M pre dicted among non-blacks [Volume Rate/Area] in Serum or Plasma by Creatinine-based formula (MDRD) >6 0 [facility] Glomerular filtration rate/1.73 sq M pre dicted among blacks [Volume Rate/Area] in Serum or Plasma by Creatinine-based formula (MDRD) >60 [facility] ID Date Data Source [id number] 06/13/2019 11:11:53 AM [facility] Value Range Interpretation Code Description Data Tania rce(s) Supporting Document(s) Magnesium [Mass/volume] in Serum or Plasma 1.7 mg/dL 1.6-2.4 [facility] ID Date Data Source [id number] 06/13/2019 11:11:53 AM [facility] Value Range Interpretation Code Description Data Tania rce(s) Supporting Document(s) Phosphate [Mass/volume] in Serum or Plasma 1.9 mg/dL 2.5-4.5 [facility] ID Date Data Source [id number] 06/13/2019 07:32:48 AM [facility] Value Range Interpretation Code Description Data Tania rce(s) Supporting Document(s) [facility] LGTJEb8xDtPAZtWu07/ZAIbePQCmb3NbMWjiBUg3UZeeXMQaN7NjAMA1bL1mWUV4OJcHNhJcFVaoUiD5 lbm BrOeaHUbZeDNJhQraVVjWrZKokNakzxGHsWH0FkTE4NEDhB21cVIGlVYSzS1MlQIG6XSY+Tt8NMORynW IgSQ2TXvkB6Mdrxjc9BK/vTP+HnXamE8/YcJLuQ+c3/WB5yyOG83sNjn6WOTCnZvjWoY4wM98CqHtdPh bBroVMLoiY9wr5W7uLUaA/1nffser7QlA/lz+DUEJv DD//JNhyZt5giA2OLAhHrAZH6IsIKlU+WICPyqudGyh77I4E3UD039UE8TkX9k/2fAeyf0MHeOIZEylO 585fvY0fN2UpwQZY1UTKauSrmzT1la3Yhk7obnczq9tRlEmHtsctw8o8RGn7KhDzumk7Mj11aNbMGNA3 IJrZnKyMlPmsAJL4e0VkFoy8ztiM79tltiE0SRuVNi FtyHMoOuugbsPXCSH8bVe271fLavacGTtiF2ZYXTkS8VIFeqXjGBblXPr/9F5FUVE7a0HUJKMIqTlOJq VD/izlBUrm/oGjrYJ2pQDw8KLUSv4GhZo1c9kq4OhdTFj9ynEupH4M8pY+No7NYyi+dGN3xb29WlRAkw 4t518NYawdotyxxfT/a03tNgtKTK3r2wY4c4gG26m1 9ymGjPC3sAHtt93ASPql5IULQqk7wlJ+HN60dsZ3LD8lL/1+Gy0x1ifHcFzJilUbn6V1cGONpSbEVqai Jayce/sQW17XyCRv8CEE/G8OQHzaz8voGrfaJWabgdDcVkaKlSWIgGpMvD5vcr8Mf+JcEkgXsX7D5LeT5j [file] BaEs8uKLNOXs0+VLbbaCUloAopDLJIBkdeLjTLIyErQH3TXAk= ID Date Data Source [id number] 06/13/2019 08:00:08 AM [facility] Name Value Range Interpretation Code Description Data Tania rce(s) Supporting Document(s) Glucose [Mass/volume] in Capillary blood by Glucometer 145 mg/dL 70- 140 [facility] ID Date Data Source [id number] 06/12/2019 09:57:10 PM [facility] Value Range Interpretation Code Description Data Tania rce(s) Supporting Document(s) Glucose [Mass/volume] in Capillary blood by Glucometer 177 mg/dL 70- 140 [facility] ID Date Data Source [id number] 06/12/2019 08:22:25 PM [facility] Value Range Interpretation Code Description Data Tania rce(s) Supporting Document(s) [facility] VLOAZq8cQkLBSdMj15/WZAmeXHMvy6BvLYwuDRt5LEyxJSDdX8RmJQZ6kC2dZKW8PVhKWzSdAPtgNrU8 [facility] [file] [id number]+SENIOR ACCOUNTANT ANALYST/0xKEPQm84ujPm2Jzwcuyd6FVq9YVoLrqtvIgu8CnvmtpCo3+KKrhZPvXpPA/nEYd1UVY [file] ZsVJOcUANcWXIZVGcsUO9YZE7fgpC4LA4MkDNwRHAeQMTiyEZjWNq2A51opGGnDAdoBL4KXJK+Sammy+Pg 9NEKRuLLSeSMNiGzDtLVDZMnWxH5HzC4DNb5NoW1BtTL50fFswynSwGNeiCR3EAD8pIRSkFOPOKQ1CxF XacQ6siwQ9CQPsGKHCWsEzV39sbILpOUFjKCJ8MEQi Lq5ZVFOsK0NftfPocWimqzFgPXSpLOIJGI7QPTqiieGlhPTamFgmTJ31tSyiUA3JEz1CEtUcYW5qmf4I sDUlFr6GOVP9UF2BCUNhXCNoXPNbMHP6FBTgAyAlETczCZDgXIWhBTD0SCCpIEHxHP2OUfKqITIxWFy0 XIYoTSEvTOBnbc8PHQDbFWD0XSR9AQPyAGAcKTVrQP ezVKPyHYHzBVL4VZXoJRGxYP5CZnTdGPRrBED2GOmmFBQnCJUkix0HQARuAVFaLAA3FiTbIWGvZLAeJB ztELWtQNF4WRGmABMxCECpPY8JCjBtTGSqUVhuDQenPMWzLDXyev8HGOJmSTPmDMAoSbKmZDQfCJApVC qiJRMnPHOgVnC1KCPiRLUkIP8GUyLfJXLjGNU8RwWe UPVlOVTkba7VHDZxNLQeDbXcIpVnDCXdXEOoEDagUTCwFQK0AFYuFGNaRBCoLU6GSgMqMMOxLQR0Xnol OZUbHGNmnl1TZVFxICRrSOcuBZWtPQCsBXLwPYhwRYRzLMV1ZICfQFIxXNEiTB8RXvOgZKYiDqKaQRDw LCQbEFCxxw8QYORuSUB5EKK2AzKuABEuMXXoNHjlWI WkHNFzQCr7MSNiAZWxSU7XXnIgIACkCeKnWXCaHHGfMUUvmw2ESERlMNG4FZwwIhKrCCOvZCHgXWjkON RgPDZvYIu3AIGaGGHrJZ9IAnVnMYEwSpNsCUDaWDOhAEIlsv9FSKWsDNW5HLKcUqGfGEAgGMXkLDedBT HaJECvMqixAWKgFEPcED8KGsUxYGInPiQ6JZtjHHHp SNMwkk3DGVLxAAJ5UTjoBrDqIHZyPWIlVUrjWDLwMMIjPTk6GIEiAVSpYY8DRcBfSJIyXcDuPXQfLYFt IZQhdm0FLMFeNIS7XtBcCpCnNMIkFVJqXLktDMHxJIIvDycwBJAtNCNbFN4XZeVuGWCxMjB6NANhHCVl CZFnnp7CBXQaPHLtQlx8JkAtEEFpGIDhMBgxPDJyTG Y6ICumDOYyFJOsTX6DFwDoYPQbWfz2XTElBPRmWLGomc9YEELnQRThOYO7JLFhTEQzKVZvQAvvJCGrMK X0NiMtJAPrIXNhXG7VItEiTFXvFnYdYSPuAYQtWDUifj6UIONsVVJsNIQ2OULcAGSzKNKkRBrfVBHpZG LdEbhyQXBpCEGqZF4SUaZxBEGvBpQ5MeIjWRSpDQMu fa0DLKUlIQJdFXvlWFJvDMFnTKNmSLdfTFBzLKEeELZiGGVmVGDyLX8MKoMaCPVrIACtRZxeRDJmFORy ni8QKMQvCHO6QwykUKDtIJRcWVKmJUhoPRKcHVAaBTO6QHGlBSFmZL5CZsAsRDKsCNLpAcUbHHXaTSPt fv7PXOEaUVN9RRFbDSVbRZQuXMCfTKacAWJgMKP0Nq BwMUAeJAAwWK3VWtOdLGJnWMC7EIWkUOVyMSErmu2YGRQmBOV5THLxICRzEDXgPWPgPYpyWATtSDN1FP LhPBJkWWHrRV3KCfAfGNMnOOgpGQsiTSWtVBSczk6LNYRwWZO2VGr0OOViGATfOKYxCKujXYYnEDMeKm DyNEFgTYRtYT9DOjHdNZDhKzA7HWPzPUGvAQNrby9A VCPxXIH5WeMcAnZyVRAmRAHePWv7ncPakTPcGNx9UQ2KB7IskvBpYRsSMv6Kp138XXR9ZPXkEa1AY5wq Uu8zVOChHBXHBr9PAWy8HEZvWvdlCAw5KTtbHCFfWfyuEAuxPwe1EYR2KTZqRCE+XDuwYnR5PIK2MRt4 DPK7WsA6JXR6YGUiCDZ5QYb7AdL4Xa4wZSSXEk8+LAgzsTGftVlkSAMALcWiYydrTMpnYPOPNb8Q ID Date Data Source [id number] 06/12/2019 04:32:47 PM EST [facility] Name Value Range Interpretation Code Description Data Tania rce(s) Supporting Document(s) Glucose [Mass/volume] in Capillary blood by Glucometer 126 mg/dL 70- 140 [facility] Procedure Social History Code Duration Value Status Description Data Source(s ) Smoking 08/05/2020 12:00:00 AM EST Never Smoker completed Never S moker eCW1 (Formerly [facility], Later [facility]) Smoking 08/05/2020 12:00:00 AM EST Never Smoker completed Never S moker eCW1 ([facility]) Smoking 07/16/2020 12:00:00 AM EST Never Smoker completed Never S moker eCW1 (Formerly [facility], [facility]) Smoking 06/27/2020 12:00:00 AM EST Never Smoker completed Never S moker eCW1 ([facility]) Smoking 06/20/2020 12:00:00 AM EST Never Smoker completed Never S moker eCW1 ([facility]) Smoking 05/20/2020 12:00:00 AM EST Never Smoker completed Never S moker eCW1 ([facility]) Smoking 05/20/2020 12:00:00 AM EST Never Smoker completed Never S moker eCW1 ([facility]) Smoking 05/20/2020 12:00:00 AM EST Never Smoker completed Never S moker eCW1 ([facility]) Smoking 05/20/2020 12:00:00 AM EST Never Smoker completed Never S moker eCW1 ([facility]) Smoking 04/05/2020 12:00:00 AM EDT Never Smoker completed Never S moker eCW1 ([facility]) Smoking 03/26/2020 12:00:00 AM EDT Never Smoker completed Never S moker eCW1 ([facility]) Smoking 03/26/2020 12:00:00 AM EDT Never Smoker completed Never S moker eCW1 ([facility]) Alcohol intake 03/24/2020 12:00:00 AM EDT Ex-drinker (finding) comp leted Ex- drinker (finding) [facility] Tobacco use and exposure 03/24/2020 12:00:00 AM EDT Never used co mpleted Never used [facility] Smoking 03/24/2020 12:00:00 AM EDT Never smoker completed Never s [facility] Smoking 01/15/2020 12:00:00 AM EDT Patient is a former smoker completed Patient is a former smoker [facility] ([facility]) Smoking 01/09/2020 12:00:00 AM EDT Never Smoker completed Never S moker eCW1 ([facility]) Smoking 01/09/2020 12:00:00 AM EDT Never Smoker completed Never S moker eCW1 ([facility]) Smoking 12/08/2019 12:00:00 AM EDT Never Smoker completed Never S moker eCW1 ([facility]) Smoking 12/08/2019 12:00:00 AM EDT Never Smoker completed Never S moker eCW1 ([facility]) Smoking 12/08/2019 12:00:00 AM EDT Never Smoker completed Never S moker eCW1 ([facility]) Smoking 12/08/2019 12:00:00 AM EDT Never Smoker completed Never S moker eCW1 ([facility]) Smoking 12/08/2019 12:00:00 AM EDT Never Smoker completed Never S moker eCW1 ([facility]) Smoking 11/16/2019 12:00:00 AM EDT Never Smoker completed Never [place] [facility] [place] [place]) Alcohol intake 09/24/2019 12:00:00 AM EDT Ex-drinker (finding) comp leted Ex- drinker (finding) [facility] Smoking 09/24/2019 12:00:00 AM EDT Never smoker completed Never [facility] Alcohol intake 07/30/2019 12:00:00 AM EST Ex-drinker (finding) comp leted Ex- drinker (finding) [facility] Smoking 07/30/2019 12:00:00 AM EST Never smoker completed Never [facility] Alcohol intake 07/24/2019 12:00:00 AM EST Ex-drinker (finding) comp leted Ex- drinker (finding) [facility] Smoking 07/24/2019 12:00:00 AM EST Never smoker completed Never [facility] Alcohol intake 07/10/2019 12:00:00 AM EST Ex-drinker (finding) comp leted Ex- drinker (finding) [facility] Smoking 07/10/2019 12:00:00 AM EST Never smoker completed Never [facility] Alcohol intake 06/26/2019 12:00:00 AM EST Ex-drinker (finding) comp leted Ex- drinker (finding) [facility] Smoking 06/26/2019 12:00:00 AM EST Never smoker completed Never [facility] Vital Signs ID Date Data Source UNK Name Value Range Interpretation Code Description Data Source(s) Diastolic blood pressure 90 mm[Hg] 90 mm[Hg] eCW1 ([facility]) Systolic blood pressure 175 mm[Hg] 175 mm[Hg] e CW1 ([facility]) Body temperature 95.9 [degF] 95.9 [degF] eCW1 ( [facility]) Respiratory rate 20 /min 20 /min eCW1 ([facility] hospital) Heart rate 78 /min 78 /min eCW1 ([facility]) Body mass index (BMI) [Ratio] 27.06 kg/m2 27.06 kg/m2 eCW1 ([facility]) Body height 68 [in_i] 68 [in_i] eCW1 ([facility]) Body weight 178 [lb_av] 178 [lb_av] eCW1 ([facility]) Diastolic blood pressure 74 mm[Hg] 74 mm[Hg] eCW1 ([facility]) Systolic blood pressure 150 mm[Hg] 150 mm[Hg] e CW1 ([facility]) Respiratory rate 18 /min 18 /min eCW1 ([facility]) Heart rate 70 /min 70 /min eCW1 ([facility]) Body mass index (BMI) [Ratio] 26.30 kg/m2 26.30 kg/m2 W1 ([facility]) Body height 68 [in_i] 68 [in_i] eCW1 ([facility]) Body weight 173 [lb_av] 173 [lb_av] eCW1 ([facility]) Diastolic blood pressure 77 mm[Hg] 77 mm[Hg] eCW1 ([facility]) Systolic blood pressure 185 mm[Hg] 185 mm[Hg] e CW1 ([facility]) Body temperature 97.3 [degF] 97.3 [degF] eCW1 ( [facility]) Respiratory rate 18 /min 18 /min eCW1 ([facility] access hospital) Heart rate 70 /min 70 /min eCW1 ([facility]) Body mass index (BMI) [Ratio] 26.30 kg/m2 26.30 kg/m2 eCW1 ([facility]) Body height 68 [in_i] 68 [in_i] eCW1 ([facility]) Body weight 173 [lb_av] 173 [lb_av] eCW1 ([facility]) Diastolic blood pressure 85 mm[Hg] 85 mm[Hg] eCW1 ([facility]) Systolic blood pressure 167 mm[Hg] 167 mm[Hg] e CW1 ([facility]) Body temperature 97.9 [degF] 97.9 [degF] eCW1 ( [facility]) Respiratory rate 18 /min 18 /min eCW1 (Critical access hospital) Heart rate 78 /min 78 /min eCW1 ([facility]) Body mass index (BMI) [Ratio] 26.15 kg/m2 26.15 kg/m2 eCW1 ([facility]) Body height 68 [in_i] 68 [in_i] eCW1 ([facility]) Body weight 172 [lb_av] 172 [lb_av] eCW1 ([facility]) Diastolic blood pressure 74 mm[Hg] 74 mm[Hg] eCW1 ([facility]) Systolic blood pressure 152 mm[Hg] 152 mm[Hg] e CW1 ([facility]) Body temperature 96.6 [degF] 96.6 [degF] eCW1 ( [facility]) Respiratory rate 20 /min 20 /min eCW1 ([facility]) Heart rate 67 /min 67 /min eCW1 ([facility]) Body mass index (BMI) [Ratio] 25.85 kg/m2 25.85 kg/m2 eCW1 ([facility]) Body height 68 [in_i] 68 [in_i] eCW1 ([facility]) Body weight 170 [lb_av] 170 [lb_av] eCW1 ([facility]) Diastolic blood pressure 120 mm[Hg] 120 mm[Hg] eCW1 ([facility]) Systolic blood pressure 210 mm[Hg] 210 mm[Hg] e CW1 ([facility]) Body temperature 96.8 [degF] 96.8 [degF] eCW1 ( [facility]) Respiratory rate 20 /min 20 /min eCW1 ([facility] hospital) Heart rate 91 /min 91 /min eCW1 ([facility]) Body mass index (BMI) [Ratio] 25.69 kg/m2 25.69 kg/m2 eCW1 ([facility]) Body height 68 [in_i] 68 [in_i] eCW1 ([facility]) Body weight 169 [lb_av] 169 [lb_av] eCW1 ([facility]) Diastolic blood pressure 75 mm[Hg] 75 mm[Hg] eCW1 ([facility]) Systolic blood pressure 153 mm[Hg] 153 mm[Hg] e CW1 ([facility]) Body temperature 98.3 [degF] 98.3 [degF] eCW1 ( [facility]) Respiratory rate 18 /min 18 /min eCW1 ([facility] hospital) Heart rate 82 /min 82 /min eCW1 ([facility]) Body mass index (BMI) [Ratio] 25.54 kg/m2 25.54 kg/m2 eCW1 ([facility]) Body height 68 [in_i] 68 [in_i] eCW1 ([facility]) Body weight 168 [lb_av] 168 [lb_av] eCW1 ([facility]) [place] body weight 166 [lb_av] 166 [lb_av] MEDEN T ([facility], ) Body mass index (BMI) [Ratio] 24.5 kg/m2 24.5 k g/m2 MEDENT ([facility], ) Body weight 171.00 [lb_av] 171.00 [lb_av] MEDEN T ([facility], ) Body height 70 [in_i] 70 [in_i] MEDENT ([facility], ) 5'10" Respiratory rate 12 /min 12 /min MEDENT ( [facility]) Body weight 78.076 kg 78.076 kg [facility], ) Body mass index (BMI) [Ratio] 24.7 kg/m2 24.7 k g/m2 [facility] ([facility], ) Body weight 172.12 [lb_av] 172.12 [lb_av] MEDEN T ([facility], ) Body height 70 [in_i] 70 [in_i] [facility], ) 5'10" Diastolic blood pressure 73 mm[Hg] 73 mm[Hg] MEDENT ([facility]) Systolic blood pressure 152 mm[Hg] 152 mm[Hg] [facility] Body weight 77.736 kg 77.736 kg [facility] ([facility]) Body mass index (BMI) [Ratio] 24.6 kg/m2 24.6 k g/m2 [facility] ([facility]) Body weight 171.38 [lb_av] 171.38 [lb_av] MEDEN T ([facility]) Body height 70 [in_i] 70 [in_i] [facility] ([facility]) 5'10" Diastolic blood pressure 82 mm[Hg] 82 mm[Hg] [facility] ([facility]) Systolic blood pressure 142 mm[Hg] 142 mm[Hg] M [facility] ([facility]) Diastolic blood pressure mm[Hg] eCW1 ([facility]) Systolic blood pressure 142 mm[Hg] 142 mm[Hg] e CW1 ([facility]) Body temperature 98.2 [degF] 98.2 [degF] eCW1 ( [facility]) Respiratory rate 17 /min 17 /min eCW1 ([facility] hospital) Heart rate 65 /min 65 /min W1 ([facility]) Body mass index (BMI) [Ratio] 25.54 kg/m2 25.54 kg/m2 [facility] ([facility]) Body height 68 [in_i] 68 [in_i] eCW1 ([facility]) Body weight 168 [lb_av] 168 [lb_av] eCW1 ([facility]) [place] body weight 166 [lb_av] 166 [lb_av] MEDEN T ([facility]) Body mass index (BMI) [Ratio] 24.5 kg/m2 24.5 k g/m2 [facility] ([facility]) Body weight 171.00 [lb_av] 171.00 [lb_av] MEDEN T ([facility]) Body height 70 [in_i] 70 [in_i] [facility] ([facility]) 5'10" Respiratory rate 12 /min 12 /min MEDENT ( [facility]) Heart rate 64 /min 64 /min MEDENT ([facility]) Diastolic blood pressure 50 mm[Hg] 50 mm[Hg] MEDENT ([facility]) Systolic blood pressure 140 mm[Hg] 140 mm[Hg] M EDENT ([facility], ) Diastolic blood pressure mm[Hg] eCW1 ([facility]) Systolic blood pressure 122 mm[Hg] 122 mm[Hg] e CW1 ([facility]) Body temperature 97.7 [degF] 97.7 [degF] eCW1 ( [facility]) Respiratory rate 18 /min 18 /min eCW1 (Critical access hospital) Heart rate 65 /min 65 /min eCW1 ([facility]) Body mass index (BMI) [Ratio] 26.45 kg/m2 26.45 kg/m2 eCW1 ([facility]) Body height 68 [in_us] 68 [in_us] eCW1 ([facility]) Body weight Measured 174 [lb_av] 174 [lb_av] eC W1 ([facility]) Diastolic blood pressure 78 mm[Hg] 78 mm[Hg] eCW1 ([facility]) Systolic blood pressure 132 mm[Hg] 132 mm[Hg] e CW1 ([facility]) Body temperature 97.5 [degF] 97.5 [degF] eCW1 ( [facility]) Respiratory rate 18 /min 18 /min eCW1 (Critical access hospital) Heart rate 96 /min 96 /min eCW1 ([facility]) Body mass index (BMI) [Ratio] 22.04 kg/m2 22.04 kg/m2 eCW1 ([facility]) Body height 68 [in_us] 68 [in_us] eCW1 ([facility]) Body weight Measured 145 [lb_av] 145 [lb_av] eC W1 ([facility]) Deprecated Oxygen saturation in Capillary blood by Oximetry 99 % 99 % eCW1 ([facility]) Respiratory rate 16 /min 16 /min eCW1 ([facility]) Heart rate 89 /min 89 /min eCW1 ([facility]) Body temperature 97.9 [degF] 97.9 [degF] eCW1 ( [facility]) Body mass index (BMI) [Ratio] 24.08 kg/m2 24.08 kg/m2 eCW1 ([facility]) Body weight Measured 158.4 [lb_av] 158.4 [lb_av ] eCW1 ([facility]) Body height 68 [in_us] 68 [in_us] eCW1 ([facility]) ID Date Data Source [id number] 03/24/2020 07:15:41 AM T [facility] Name Value Range Interpretation Code Description Data Source(s) WEIGHT RECORDED 167 lb 167 lb [facility] Body height Measured 66 in 66 in [facility] ID Date Data Source [id number] 06/26/2019 08:43:26 AM [facility] Value Range Interpretation Code Description Data Source(s) WEIGHT RECORDED 173 lb 173 lb [facility] Body height Measured 70 in 70 in [facility] ID Date Data Source [id number] 08/07/2019 07:54:51 AM [facility] Value Range Interpretation Code Description Data Source(s) WEIGHT RECORDED 173 lb 173 lb [facility] Body height Measured 70 in 70 in [facility] Patient Treatment Plan of Care Planned Activity Planned Date Details Description Data Source (s) Sulfamethoxazole 800 MG / Trimethoprim 160 MG Oral Tab let [Bactrim] 04/05/2020 12:00:00 AM EDT eCW1 ([facility]) Finasteride 5 MG Oral Tablet 03/07/2020 12:00:00 AM T [facility] Finasteride 5 MG Oral Tablet [Proscar] 01/09/2020 12:00:00 AM EDT eCW1 ([facility]) Finasteride 5 MG Oral Tablet [Proscar] 01/09/2020 12:00:00 AM EDT [facility] ([facility]) atorvastatin 40 MG Oral Tablet 12/25/2019 12:00:00 AM [facility] apixaban 2.5 MG Oral Tablet [Eliquis] 12/20/2019 12:00:00 AM [facility] Amlodipine 10 MG Oral Tablet 12/18/2019 12:00:00 AM [facility] Cephalexin 250 MG 12/15/2019 01:00:00 AM EDT [facility]) MetFORMIN HCl 1000 MG 11/26/2019 01:00:00 AM EDT [facility] ([facility]) Tamsulosin HCl 0.4 MG 11/26/2019 01:00:00 AM EDT [facility]) Atorvastatin Calcium 40 MG 11/26/2019 01:00:00 AM EDT [facility] ([facility]) Pravastatin Sodium 20 MG 11/26/2019 01:00:00 AM EDT [facility]) Losartan Potassium-HCTZ 100-12.5 MG 11/26/2019 01:00:00 AM EDT [facility] ([facility]) Iron (Ferrous Sulfate) 142 (45 Fe) MG 11/26/2019 01:00:00 AM EDT [facility] ([facility]) Omeprazole 20 MG 11/26/2019 01:00:00 AM EDT [facility] ([facility]) Daily Multivitamin 11/26/2019 01:00:00 AM T [facility]) B12 Folate 800-800 MCG 11/26/2019 01:00:00 AM EDT [facility]) Insulin Detemir 100 UNIT/ML 11/26/2019 01:00:00 AM EDT [facility]) Eliquis 2.5 MG 11/26/2019 01:00:00 AM EDT [facility]) AmLODIPine Besylate 10 MG 11/22/2019 01:00:00 AM EDT [facility]) Cephalexin 500 MG Oral Capsule [Keflex] 08/23/2019 12:00:00 AM [facility] eCW1 ([facility]) Tamsulosin hydrochloride 0.4 MG Oral Capsule 07/17/2019 12:00:00 AM [facility] Misc. Devices (DURABLE MEDICAL EQUIPMENT SEE SIG) XX [facility] 07/03/2019 12:00:00 AM [facility] ospital Ibuprofen 200 MG 06/26/2019 12:00:00 AM [facility]) [facility] Devices (DURABLE MEDICAL EQUIPMENT SEE SIG) XX [facility] 06/23/2019 12:00:00 AM [facility]spital Tylenol Extra Strength 500 MG 06/20/2019 12:00:00 AM EST [employer] ([facility]) Tamsulosin HCl 0.4 MG 06/16/2019 12:00:00 AM EST [facility]) Omeprazole 20 MG 06/16/2019 12:00:00 AM EST [facility]) Pravastatin Sodium 20 MG 06/16/2019 12:00:00 AM [facility]) Ferrous Sulfate 325 (65 Fe) MG 06/16/2019 12:00:00 AM EST [facility]) Losartan Potassium 100 MG 06/16/2019 12:00:00 AM EST [facility]) MetFORMIN HCl 1000 MG 06/16/2019 12:00:00 AM EST [facility]) Senna 8.6 MG 06/16/2019 12:00:00 AM EST N [facility] ([facility]) Heparin Lock Flush 100 UNIT/ML 06/16/2019 12:00:00 AM EST [facility]) Normal Saline Flush 0.9 % 06/16/2019 12:00:00 AM EST [facility]) CefTRIAXone Sodium 2 GM 06/16/2019 12:00:00 AM EST [employer] ([facility]) Vancomycin HCl 1.5 GM 06/16/2019 12:00:00 AM EST [facility]) Lantus SoloStar 100 UNIT/ML 06/16/2019 12:00:00 AM EST [facility]) Normal Saline Flush 0.9 % Intravenous Solution 06/16/2019 12:00:00 AM [facility] 3 ML heparin sodium, porcine 100 UNT/ML Prefilled Syri nge 06/16/2019 12:00:00 AM [facility] ospital Tamsulosin hydrochloride 0.4 MG Oral Capsule 06/16/2019 12:00:00 AM [facility] POLYETHYLENE GLYCOL 3350 142 MG/ML Oral Solution 06/16/2019 12:00:0 0 AM [facility] Ceftriaxone 2000 MG Injection 06/16/2019 12:00:00 AM [facility] Vancomycin HCl 1.5 GM Intravenous Solution Reconstitut ed (VANCOCIN) 06/16/2019 12:00:00 AM [facility] Tamsulosin hydrochloride 0.4 MG Oral Capsule 06/16/2019 12:00:00 AM [facility] POLYETHYLENE GLYCOL 3350 142 MG/ML Oral Solution 06/16/2019 12:00:0 0 AM [facility] Tamsulosin hydrochloride 0.4 MG Oral Capsule 06/16/2019 12:00:00 AM [facility] POLYETHYLENE GLYCOL 3350 142 MG/ML Oral Solution 06/16/2019 12:00:0 0 AM [facility] sennosides, LONG-TERM 8.6 MG Oral Tablet 06/15/2019 12:00:00 AM [facility] ferrous sulfate 325 MG Oral Tablet 06/15/2019 12:00:00 AM [facility] Vancomycin HCl 1500 MG/300ML Intravenous Solution (VAN COCIN) 06/15/2019 12:00:00 AM [facility]spital Ceftriaxone 2000 MG Injection 06/15/2019 12:00:00 AM [facility] Acetaminophen 325 MG Oral Tablet 06/15/2019 12:00:00 AM [facility] sennosides, LONG-TERM 8.6 MG Oral Tablet 06/15/2019 12:00:00 AM [facility] ferrous sulfate 325 MG Oral Tablet 06/15/2019 12:00:00 AM [facility] ferrous sulfate 325 MG Oral Tablet 06/15/2019 12:00:00 AM [facility] ferrous sulfate 325 MG Oral Tablet 06/15/2019 12:00:00 AM [facility] sennosides, LONG-TERM 8.6 MG Oral Tablet 06/15/2019 12:00:00 AM [facility] Hydralazine Hydrochloride 20 MG/ML Injectable Solution 06/14/2019 07:49:21 AM [facility]spital Bisacodyl 10 MG Rectal Suppository 06/13/2019 10:27:21 AM [facility] sodium chloride (preservative free) 0.9 % flush 10 mL 06/13/2019 10:26:31 AM [facility]ital Glucose 0.4 MG/MG Oral Gel 06/11/2019 02:11:29 PM [facility] dextrose 50 % IV solution 25 mL 06/10/2019 11:20:42 PM [facility] Glucagon 1 MG Injection 06/10/2019 11:20:42 PM [facility] Glucose 0.4 MG/MG Oral Gel 06/10/2019 11:20:42 PM [facility] Pravastatin Sodium 20 MG Oral Tablet [facility] Acetaminophen 325 MG Oral Tablet [facility] meloxicam 15 MG Oral Tablet [facility] tramadol hydrochloride 50 MG Oral Tablet [facility]
--- OUTSIDE RECORDS SUMMARY | 2020-08-11 14:25 | CCD ---
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 Role Phone Shanelle Barrera MD Unavailable [...] Unavailable TRICIA, A HENRY MD Unavailable Unavailable TRIICA, A HENRY MD Unavailable Unavailable TRICIA, A [...] Unavailable Mariluz CLARKE MD Unavailable Unavailable Mariluz CLAKRE MD Unavailable Unavailable Mariluz CLARKE MD Unavailable [...] A DEMETRIUS MD Unavailable Unavailable EMERTON, A EDMETRIUS MD Unavailable Unavailable EMERTON, A DEMETRIUS MD [...] Unavailable Juanpablo Jones MD Unavailable Unavailable Juanpablo oJnes MD Unavailable Unavailable Juanpablo Jones MD Unavailable [...] Unavailable Saskia, M Cleo PA Unavailable Unavailable Saskai, M Cleo PA Unavailable Unavailable Saskia, M [...] M Cleo PA Unavailable Unavailable Saskia, M Lceo PA Unavailable Unavailable Saskia, M Cleo PA [...] is protected by Article 27-F of the [facility] Public Health law. If you continue you may have access to information: Regarding HIV / AIDS; Provided by facilities licensed or operated by the [facility] Office of Mental Health; or Provided by the [facility] Office for People With Developmental Disabilities. If such information is present, then the following [facility] mandated warning applies: This information has been [...] law may result in a fine or prison sentence or both. A general authorization for the release of medical or other information is NOT sufficient authorization for further disc losure. Allergies and Adverse Reactions Type Description Substance Reaction Status Data Source(s ) Drug Class NO KNOWN ALLERGIES NO KNOWN ALLERGIES [facility] No Known Drug Allergies No Known Drug Allergies No Known Drug Aller gies active NETSROCK ([facility] ) Encounters Encounter Providers Location Date Indications Data Source(s ) Outpatient Attender: Yosef Barrera MD 03/16/2022 12:00:00 AM ED [facility] [place] [address] [facility] [address] 08/05/2020 12:00:00 AM EST eCW1 ([facility]) [place] [address] [facility] [address] 08/05/2020 12:00:00 AM EST eCW1 ([facility]) [place] [address] [facility] [address] 07/16/2020 12:00:00 AM EST [facility]CW1 ([facility]) [place] [address] [facility] [address] 06/27/2020 12:00:00 AM EST eCW1 ([facility]) [place] [address] [facility] [address] 06/20/2020 12:00:00 AM EST eCW1 ([facility]) Unknown [address] [facility] [address] 05/29/2020 12:00:00 AM EST eCW1 ([facility]) [place] [address] [facility] [address] 05/29/2020 12:00:00 AM EST eCW1 ([facility]) [place] [address] [facility] [address] 05/20/2020 12:00:00 AM EST eCW1 ([facility]) Unknown [address] [facility] [address] 05/20/2020 12:00:00 AM EST eCW1 ([facility]) [place] [address] [facility] [address] 04/05/2020 12:00:00 AM EDT eCW1 ([facility]) [place] [address] [facility] [address] 03/26/2020 12:00:00 AM EDT eCW1 ([facility]) Unknown [address] [facility] [address] 03/26/2020 12:00:00 AM EDT eCW1 ([facility]) Office Visit Attender: Andi Jones MD Main office - [facility] 03/25/2020 01:15:00 PM EDT MEDENT ([facility]) Outpatient Attender: Yosef Barrera MD [id number] 03/11/2020 12:00:00 AM EDT Discitis, unspecified, lumbar [facility] Discitis, unspecified, lumbar region Outpatient Referrer: Yosef Barrera MD 03/11/2020 12:00:00 AM EDT Discitis, unspecified, [facility] Discitis, unspecified, lumbar region Outpatient Attender: Marii Calderon/Hal/Anthony/ Abbey 01/15/2020 03:15:00 PM EDT MEDENT ([facility]) [place] [address] [facility] [address] 01/09/2020 12:00:00 AM EDT eCW1 ([facility]) [place] [address] [facility] [address] 01/09/2020 12:00:00 AM EDT eCW1 [facility] Outpatient Attender: Andi Jones MD Main office [facility] 12/25/2019 09:00:00 AM EDT MEDENT ([facility], ) [facility] [address] [facility] [address] 12/19/2019 12:00:00 AM EDT eCW1 ([facility]) Unknown [address] [facility] [address] 12/12/2019 12:00:00 AM EDT eCW1 ([facility]) Outpatient Attender: HENRY CLARKE MD 12/12/2019 12:00:0 0 AM EDT [facility] [address] [address] 12/11/2019 12:00:00 AM EDT eCW1 ([facility]) Unknown [address] [facility] [address] 12/11/2019 12:00:00 AM EDT eCW1 ([facility]) Unknown [address] [facility] [address] 12/08/2019 12:00:00 AM EDT eCW1 ([facility]) [place] [address] [facility] [address] 12/08/2019 12:00:00 AM EDT eCW1 [facility] Outpatient Referrer: DEMETRIUS PERSON MD 12/07/2019 06:08:00 AM EDT [facility] Outpatient Attender: Bill Winter MD 12/06/2019 12:00:00 A M EDT [facility] [address] [facility] [address] 12/04/2019 12:00:00 AM EDT [facility] 11/26/2019 01:00:00 AM EDT - 020 09:15:59 AM EDT NETSMART ([facility]) Outpatient Attender: Bill Winter MD 11/22/2019 12:00:00 A M [facility] [address] [place] [address], [facility] [address] 11/16/2019 12:00:00 AM EDT eCW1 [facility]) [facility] Center [address] [place] [address] 10/19/2019 12:00:00 AM EDT eCW1 ([facility]) [facility] [address] [facility] [place] [address] 10/17/2019 12:00:00 AM EDT eCW1 ([facility]) [facility] [address] [place] [address] [place] [address] 09/15/2019 12:00:00 AM EDT eCW1 ([facility]) [facility] [address] [place] [address] [place] [address] 09/13/2019 12:00:00 AM EDT eCW1 ([facility]) Outpatient Referrer: Yosef Barrera MD 09/08/2019 12:00:00 AM EDT Discitis, unspecified, lumbar [facility] Discitis, unspecified, lumbar region Outpatient Attender: Yosef Barrera MD [id number] 09/08/2019 12:00:[address] [facility] Outpatient Attender: Yosef Barrera MD 09/04/2019 12:00:00 AM [facility] [address] [address] 08/23/2019 12:00:00 AM EST eCW1 ([facility]) [facility] 08/14/2019 12:00:00 AM EST eCW1 ([facility]) Outpatient Referrer: DEMETRIUS PERSON MD 07/25/2019 12:16:00 PM EST [facility] Outpatient Attender: BENJAMIN Hurtadoferrer: DONNA VELEZ [id number] 07/24/2019 12:00:00 AM EST - 07/24/2019 11:56:58 AM EST [facility] Outpatient Attender: Yosef Barrera MD [id number] 07/21/2019 12:00:00 AM E [facility] C EN[facility] 07/21/2019 12:00:00 AM EST eCW1 ([facility]) Outpatient Attender: Christopher Martinez MDReferrer: Christopher Martinez MDConsultant: Christopher Martinez MD 07/18/2019 01:14:0 0 PM EST - 07/18/2019 01:24:00 PM EST [facility] C ENTER 07/13/2019 12:00:00 AM EST eCW1 ([facility]) Outpatient Attender: Christopher Martinez MDReferrer: Christopher Martinez MDConsultant: Christopher Martinez MD 07/10/2019 10:52:0 0 AM EST - 07/10/2019 11:02:00 AM EST [facility] Outpatient Attender: BENJAMIN Hurtadoferrer: DONNA VELEZ [id number] 07/10/2019 12:00:00 AM EST - 07/10/2019 02:15:44 PM EST Extradural and subdural abscess, unspecified [facility] Extradural and subdural abscess, unspeci fied [facility] 07/04/2019 12:00:00 AM EST eCW1 ([facility]) Outpatient Attender: Christopher Martinez MDReferrer: Christopher Martinez MDConsultant: Christopher Martinez MD 07/03/2019 04:12:0 0 PM EST - 07/03/2019 04:22:00 PM [facility] Outpatient Attender: Bill Winter MD 06/30/2019 09:29:00 A M [facility] Outpatient Referrer: DEMETRIUS PERSON MD 06/30/2019 08:20:00 AM EST [facility] 06/30/2019 12: 00:00 AM EST eCW1 ([facility]) Outpatient Attender: Christopher Martinez MDReferrer: Christopher Martinez MDConsultant: Christopher Martinez MD 06/29/2019 03:38:0 0 PM EST - 06/29/2019 03:48:00 PM [facility] Outpatient Attender: Christopher Martinez MDReferrer: Christopher Martinez MDConsultant: Christopher Martinez MD 06/26/2019 02:46:0 0 PM EST - 06/26/2019 02:56:00 PM [facility] Outpatient Referrer: Cleo GALLAGHER 06/23/2019 12 :00:00 AM EST Extradural and subdural abscess, unspecified [facility] Extradural and subdural abscess, unspeci fied Outpatient Attender: Yosef Barrera MD [id number] 06/23/2019 12:00:00 AM E [facility] Outpatient Attender: Christopher Martinez MDReferrer: Christopher Martinez MDConsultant: Christopher Martinez MD 06/19/2019 03:51:0 0 PM EST - 06/19/2019 04:01:00 PM [facility] 06/16/2019 12:00:00 AM EST - 020 11:07:01 AM EST [facility] Inpatient Attender: Chriss Chirinos tatyana: DONNA OLIVOAttender: DIONY KEITA MDAttender: MIMI OSPINA MDAdmitter: DIONY KEITA MDReferrer: DIONY KEITA MD [id number] 06/10/2019 12:00:00 AM EST - 06/15/2019 12:00:00 AM ES T Discitis, unspecified, lumbar region [facility] Discitis, unspecified, lumbar region Patient discharged. Immunizations Vaccine Date Status Description Data Source(s) New in 2011. IIV4 03/11/2020 09:16:00 AM EDT completed eCW1 ([facility]) New in 2011. IIV4 03/11/2020 09:16:00 AM EDT completed eCW1 ([facility]) New in 2011. IIV4 03/11/2020 09:16:00 AM EDT completed eCW1 ([facility]) New in 2011. IIV4 03/11/2020 09:16:00 AM EDT completed eCW1 ([facility]) New in 2011. IIV4 03/11/2020 09:16:00 AM EDT completed eCW1 ([facility]) New in 2011. IIV4 06/14/2019 12:00:00 AM EST completed In fluenza Quad IM Pres Free (0.5 mL dose) 06/14/2019 [facility] Medications Medication Brand Name Start Date Product Form Dose Route Admi nistrative Instructions Pharmacy Instructions Status Indications Reaction Description Data Source(s) 100 mcg/0.5 mL 07/15/2020 12:00:00 AM EST suspension 0 INJECT BY [facility] (FIRST DOSE) INJECT BY [facility] (FIRST DOSE) SOLD: 07/15/2020 [facility] 250 [...] suspended Bactrim DS 800-160 MG eCW1 ( [facility]) Sulfamethoxazole 800 MG / Trimethoprim 1 60 MG Oral Tablet [Bactrim] Bactrim DS 800-160 MG Bactrim DS 800-160 MG 04/05/2020 12:00:00 AM EDT 1.0 {table t} active Bactrim DS 800-160 MG eCW1 ( [facility]) Sulfamethoxazole 800 MG / Trimethoprim 1 60 MG Oral Tablet [Bactrim] Bactrim DS 800-160 MG Bactrim DS 800-160 MG 04/05/2020 12:00:00 AM EDT 1.0 {table t} active Bactrim DS 800-160 MG eCW1 ( [facility]) Sulfamethoxazole 800 MG / Trimethoprim 1 60 MG Oral Tablet [Bactrim] Bactrim DS 800-160 MG Bactrim DS 800-160 MG 04/05/2020 12:00:00 AM EDT 1.0 {table t} suspended Bactrim DS 800-160 MG eCW1 ( [facility]) Sulfamethoxazole 800 MG / Trimethoprim 1 60 MG Oral Tablet [Bactrim] Bactrim DS 800-160 MG Bactrim DS 800-160 MG 04/05/2020 12:00:00 AM EDT 1.0 {table t} active Bactrim DS 800-160 MG eCW1 ( [facility]) Sulfamethoxazole 800 MG / Trimethoprim 1 60 MG Oral Tablet [Bactrim] Bactrim DS 800-160 MG Bactrim DS 800-160 MG 04/05/2020 12:00:00 AM EDT 1.0 {table t} suspended Bactrim DS 800-160 MG eCW1 ( [facility]) Sulfamethoxazole 800 MG / Trimethoprim 1 60 MG Oral Tablet [Bactrim] Bactrim DS 800-160 MG Bactrim DS 800-160 MG 04/05/2020 12:00:00 AM EDT 1.0 {table t} suspended Bactrim DS 800-160 MG eCW1 ( [facility]) Sulfamethoxazole 800 MG / Trimethoprim 1 60 MG Oral Tablet [Bactrim] Bactrim DS 800-160 MG Bactrim DS 800-160 MG 04/05/2020 12:00:00 AM EDT 1.0 {table t} active Bactrim DS 800-160 MG eCW1 ( [facility]) Sulfamethoxazole 800 MG / Trimethoprim 1 60 MG Oral Tablet [Bactrim] Bactrim DS 800-160 MG Bactrim DS 800-160 MG 04/05/2020 12:00:00 AM EDT 1.0 {table t} active Bactrim DS 800-160 MG eCW1 ( [facility]) Sulfamethoxazole 800 MG / Trimethoprim 1 60 MG Oral Tablet [Bactrim] Bactrim DS 800-160 MG Bactrim DS 800-160 MG 04/05/2020 12:00:00 AM EDT 1.0 {table t} active Bactrim DS 800-160 MG eCW1 ( [facility]) 100 mg 03/11/2020 12:00:00 AM EDT [...] Oral Tablet (PROSCAR) 03/07/2020 12:00:00 AM EDT [facility] 20 mg 02/27/2020 12:00:00 AM EDT [...] {tablet} active Pr lian 5 MG eCW1 ([facility]) Finasteride 5 MG Oral Tablet [Proscar] Proscar 5 MG Proscar 5 MG 01/09/2020 12:00:00 AM EDT 1.0 {tablet} active Pr lian 5 MG eCW1 ([facility]) Finasteride 5 MG Oral Tablet FINASTERIDE 01/09/2020 12:00:00 AM EDT ta blet 30 TAKE ONE TABLET BY MOUTH ONCE DAILY TAKE ONE TABLET BY MOUTH ONCE DAILY SOLD: 03/08/2020 [facility] Finasteride 5 MG Oral Tablet [Proscar] Proscar 5 MG Proscar 5 MG 01/09/2020 12:00:00 AM EDT 1.0 {tablet} active Pr lian 5 MG eCW1 ([facility]) Finasteride 5 MG Oral Tablet FINASTERIDE 01/09/2020 12:00:00 AM EDT ta blet 30 TAKE ONE TABLET BY MOUTH ONCE DAILY TAKE ONE TABLET BY MOUTH ONCE DAILY SOLD: 06/02/2020 [facility] Finasteride 5 MG Oral Tablet [Proscar] Proscar 5 MG Proscar 5 MG 01/09/2020 12:00:00 AM EDT 1.0 {tablet} active Pr lian 5 MG eCW1 ([facility]) Finasteride 5 MG Oral Tablet [Proscar] Proscar 5 MG Proscar 5 MG 01/09/2020 12:00:00 AM EDT 1.0 {tablet} active Pr lian 5 MG eCW1 ([facility]) Finasteride 5 MG Oral Tablet [Proscar] Proscar 5 MG Proscar 5 MG 01/09/2020 12:00:00 AM EDT 1.0 {tablet} active Pr lian 5 MG eCW1 ([facility]) Finasteride 5 MG Oral Tablet [Proscar] Proscar 5 MG Proscar 5 MG 01/09/2020 12:00:00 AM EDT 1.0 {tablet} active Pr lian 5 MG eCW1 ([facility]) Finasteride 5 MG Oral Tablet FINASTERIDE 01/09/2020 12:00:00 AM EDT ta blet 30 TAKE ONE TABLET BY MOUTH ONCE DAILY TAKE ONE TABLET BY MOUTH ONCE DAILY SOLD: 01/10/2020 [facility] Finasteride 5 MG Oral Tablet [Proscar] Proscar 5 MG Proscar 5 MG 01/09/2020 12:00:00 AM EDT 1.0 {tablet} active Pr lian 5 MG eCW1 ([facility]) Finasteride 5 MG Oral Tablet [Proscar] Proscar 5 MG Proscar 5 MG 01/09/2020 12:00:00 AM EDT 1.0 {tablet} active Pr lian 5 MG eCW1 ([facility]) Finasteride 5 MG Oral Tablet FINASTERIDE 01/09/2020 12:00:00 AM EDT ta blet 30 TAKE ONE TABLET BY MOUTH ONCE DAILY TAKE ONE TABLET BY MOUTH ONCE DAILY SOLD: 05/07/2020 [facility] Finasteride 5 MG Oral Tablet [Proscar] Proscar 5 MG Proscar 5 MG 01/09/2020 12:00:00 AM EDT 1.0 {tablet} active Pr lian 5 MG eCW1 ([facility]) Finasteride 5 MG Oral Tablet FINASTERIDE [...] {tablet} active Pr lian 5 MG eCW1 ([facility]) Finasteride 5 MG Oral Tablet FINASTERIDE 01/09/2020 12:00:00 AM EDT ta blet 30 TAKE ONE TABLET BY MOUTH ONCE DAILY TAKE ONE TABLET BY MOUTH ONCE DAILY SOLD: 02/09/2020 [facility] Finasteride 5 MG Oral Tablet [Proscar] Proscar 5 MG Proscar 5 MG 01/09/2020 12:00:00 AM EDT 1.0 {tablet} active Pr lian 5 MG eCW1 ([facility]) Finasteride 5 MG Oral Tablet [Proscar] Proscar 5 MG Proscar 5 MG 01/09/2020 12:00:00 AM EDT 1.0 {tablet} active Pr lian 5 MG eCW1 ([facility]) Finasteride 5 MG Oral Tablet [Proscar] Proscar 5 MG Proscar 5 MG 01/09/2020 12:00:00 AM EDT 1.0 {tablet} active Pr lian 5 MG eCW1 ([facility]) atorvastatin 40 MG Oral Tablet ATORVASTATIN [...] Oral active Take 40 mg by mouth [facility] 2.5 mg 12/20/2019 12:00:00 AM EDT [...] 2.5 mg by mouth [facility] 10 mg 12/18/2019 12:00:00 AM EDT [...] 12/18/2019 12:00:00 AM EDT active [facility] Cephalexin 250 MG Cephalexin 12/15/2019 01:00:00 AM EDT completed NETSMART ([facility] ) 250 mg 12/15/2019 12:00:00 AM EDT capsule 40 TAKE ONE CAPSULE BY MOUTH FOUR TIMES A DAY FOR 10 DAYS TAKE ONE CAPSULE BY MOUTH FOUR TIMES A DAY FOR 10 DAYS SOLD: 12/15/2019 [facility] Tamsulosin HCl 0.4 MG Tamsulosin HCl 11/26/2019 01:00:00 AM EDT 0.4 {mg} completed NETSMART ([facility]) MetFORMIN HCl 1000 MG MetFORMIN HCl 11/26/2019 01:00:00 AM EDT completed NETSMART ([facility]) Pravastatin Sodium 20 MG Pravastatin Sodium 11/26/2019 01:00:00 AM EDT completed NETSMART ([facility]) Atorvastatin Calcium 40 MG Atorvastatin Calcium 11/26/2019 01:00:00 A M EDT completed NETSMART ( [facility]) Losartan Potassium-HCTZ 100-12.5 MG Losartan Potassium-HCTZ 11/26/2019 01:00:00 AM EDT completed NETSMAR T ([facility]) Eliquis 2.5 MG Eliquis 11/26/2019 01:00:00 AM EDT 0 {mg} completed NETSMART ([facility] ) Insulin Detemir 100 UNIT/ML Insulin Detemir 11/26/2019 01:00:00 AM EDT 8.0 {unit} completed NETSMART ([facility]) B12 Folate 800-800 MCG B12 Folate 11/26/2019 01:00:00 AM EDT completed NETSMART ([facility]) Daily Multivitamin Daily Multivitamin 11/26/2019 01:00:00 AM EDT completed NETSMART ([facility]) Omeprazole 20 MG Omeprazole 11/26/2019 01:00:00 AM EDT completed NETSMART ([facility] ) Iron (Ferrous Sulfate) 142 (45 Fe) MG Iron (Ferrous Sulfate) 11/26/2019 01:00:00 AM EDT completed NETSMA RT ([facility]) 40 mg 11/23/2019 12:00:00 AM EDT [...] A M EDT 0 {mg} completed NETSMART ([facility]) 20 mg 11/13/2019 12:00:00 AM EDT [...] EST suspended Kefle x 500 MG eCW1 ([facility]) Cephalexin 500 MG Oral Capsule [Keflex] Keflex 500 MG Keflex 500 MG 08/23/2019 12:00:00 AM EST suspended Kefle x 500 MG eCW1 ([facility]) Cephalexin 500 MG Oral Capsule [Keflex] Keflex 500 MG Keflex 500 MG 08/23/2019 12:00:00 AM EST suspended Kefle x 500 MG eCW1 ([facility]) Cephalexin 500 MG Oral Capsule [Keflex] Keflex 500 MG Keflex 500 MG 08/23/2019 12:00:00 AM EST active 1 capsul e 1 hour prior to your cystoscopy eCW1 ([facility]) Cephalexin 500 MG Oral Capsule [Keflex] Keflex 500 MG Keflex 500 MG 08/23/2019 12:00:00 AM EST suspended Kefle x 500 MG eCW1 ([facility]) Cephalexin 500 MG Oral Capsule [Keflex] Keflex 500 MG Keflex 500 MG 08/23/2019 12:00:00 AM EST suspended Kefle x 500 MG eCW1 ([facility]) Cephalexin 500 MG Oral Capsule [Keflex] Keflex 500 MG Keflex 500 MG 08/23/2019 12:00:00 AM EST suspended Kefle x 500 MG eCW1 ([facility]) Cephalexin 500 MG Oral Capsule [Keflex] Keflex 500 MG Keflex 500 MG 08/23/2019 12:00:00 AM EST active Keflex 5 00 MG eCW1 ([facility]) Cephalexin 500 MG Oral Capsule [Keflex] Keflex 500 MG Keflex 500 MG 08/23/2019 12:00:00 AM EST suspended Kefle x 500 MG eCW1 ([facility]) Cephalexin 500 MG Oral Capsule [Keflex] Keflex 500 MG Keflex 500 MG 08/23/2019 12:00:00 AM EST suspended Kefle x 500 MG eCW1 ([facility]) Cephalexin 500 MG Oral Capsule [Keflex] Keflex 500 MG Keflex 500 MG 08/23/2019 12:00:00 AM EST suspended 1 capsule 1 hour prior to your cystoscopy eCW1 ([facility]) Cephalexin 500 MG Oral Capsule [Keflex] Keflex 500 MG Keflex 500 MG 08/23/2019 12:00:00 AM EST active Keflex 5 00 MG eCW1 ([facility]) Cephalexin 500 MG Oral Capsule [Keflex] Keflex 500 MG Keflex 500 MG 08/23/2019 12:00:00 AM EST suspended Kefle x 500 MG eCW1 ([facility]) Cephalexin 500 MG Oral Capsule [Keflex] Keflex 500 MG Keflex 500 MG 08/23/2019 12:00:00 AM EST active Keflex 5 00 MG eCW1 ([facility]) Cephalexin 500 MG Oral Capsule [Keflex] Keflex 500 MG Keflex 500 MG 08/23/2019 12:00:00 AM EST suspended Kefle x 500 MG eCW1 ([facility]) Cephalexin 500 MG Oral Capsule [Keflex] Keflex 500 MG Keflex 500 MG 08/23/2019 12:00:00 AM EST suspended Kefle x 500 MG eCW1 ([facility]) Cephalexin 500 MG Oral Capsule [Keflex] Keflex 500 MG Keflex 500 MG 08/23/2019 12:00:00 AM EST active Keflex 5 00 MG eCW1 ([facility]) Cephalexin 500 MG Oral Capsule [Keflex] Keflex 500 MG Keflex 500 MG 08/23/2019 12:00:00 AM EST active Keflex 5 00 MG eCW1 ([facility]) Cephalexin 500 MG Oral Capsule [Keflex] Keflex 500 MG Keflex 500 MG 08/23/2019 12:00:00 AM EST suspended Kefle x 500 MG eCW1 ([facility]) Cephalexin 500 MG Oral Capsule [Keflex] Keflex 500 MG Keflex 500 MG 08/23/2019 12:00:00 AM EST active Keflex 5 00 MG eCW1 ([facility]) Cephalexin 500 MG Oral Capsule [Keflex] Keflex 500 MG Keflex 500 MG 08/23/2019 12:00:00 AM EST suspended Kefle x 500 MG eCW1 ([facility]) Cephalexin 500 MG Oral Capsule [Keflex] Keflex 500 MG Keflex 500 MG 08/23/2019 12:00:00 AM EST suspended Kefle x 500 MG eCW1 ([facility]) 20 mg 08/21/2019 12:00:00 AM EST [...] TABLET BY MOUTH EVERY DAY SOLD: 07/25/2019 [facility] Tamsulosin hydrochloride 0.4 MG Oral Cap delphine Tamsulosin HCl 0.4 MG Oral Capsule (FLOMAX) Tamsulosin HCl 0.4 MG Oral Capsule (FLOMAX) 07/17/2019 12:00 :00 AM EST 0.4 mg Oral aborted Take 1 capsule b y mouth daily [facility] 0.4 mg 07/17/2019 12:00:00 AM EST capsule 30 TAKE ONE CAPSULE BY MOUTH EVERY DAY TAKE ONE CAPSULE BY MOUTH EVERY DAY SOLD: 07/18/2019 [facility] Misc. Devices (DURABLE MEDICAL EQUIPMENT SEE SIG) XX [facility] 97 [id number] 07/03/2019 12:00:00 AM EST aborted Use as directed. Wheel chair Dx: Back pain [facility] Ibuprofen 200 MG Ibuprofen 06/26/2019 12:00:00 AM EST completed NETSMART ([facility]) Misc. Devices (DURABLE MEDICAL EQUIPMENT SEE SIG) XX [facility] 97 [id number] 06/23/2019 12:00:00 AM EST aborted Use as directed. Urinary leg bag Dx: R33.9 [facility] Tylenol Extra Strength 500 MG Tylenol Extra Strength 06/20/2019 12:00:00 AM EST 0 {tablet} completed NET SMART ([facility]) POLYETHYLENE GLYCOL 3350 142 MG/ML Oral Solution Polyethylene Glycol 3350 Oral Packet (MIRALAX) Polyethylene Glycol 3350 Oral Packet (MIRALAX) 019 12:00:00 AM EST 17 g Oral aborted Take 1 packet by mouth daily Please substitute bottle for packets, if packets are unavailable. [facility] Tamsulosin hydrochloride 0.4 MG Oral Cap delphine Tamsulosin HCl 0.4 MG Oral Capsule (FLOMAX) Tamsulosin HCl 0.4 MG Oral Capsule (FLOMAX) 06/16/2019 12:00 :00 AM EST 0.4 mg Oral aborted Take 1 capsule b y mouth daily [facility] Lantus SoloStar 100 UNIT/ML Lantus SoloStar 06/16/2019 12:00:00 AM EST 8.0 {unit} completed NETSMART ([facility]) MetFORMIN HCl 1000 MG MetFORMIN HCl 06/16/2019 12:00:00 AM EST completed NETSMART ([facility]) Senna 8.6 MG Senna 06/16/2019 12:00:00 AM EST 2.0 {tablet} completed NETSMART ([facility]) 3 ML heparin sodium, porcine 100 UNT/ML Prefilled Syringe Heparin Lock Flush 100 UNIT/ML Intravenous Solution Heparin Lock Flush 100 UNIT/ML Intraveno us Solution 06/16/2019 12:00:00 AM EST 500 U Intracatheter aborted Encounter for long-term (current) use of antibioticsDiscitis of lumbar regionEpidural abscess 5 mLs by Intracatheter route as needed (For after IV infusion and as needed) [facility] Encounter for long-term (current) use of [...] into the vein every 24 (twenty-four) hours [facility] Encounter for long-term (current) use of antibiotics Discitis of lumbar region Epidural abscess Vancomycin HCl 1.5 GM Intravenous Solution Reconstitut ed (VANCOCIN) [id number] 06/16/2019 12:00:00 AM EST 1500 mg Intravenous a borted Encounter for long-term (current) use of antibioticsDiscitis of lumbar regionEpidural abscess Inject 1.5 g into the vein every 24 (twenty-four) hour s [facility] Encounter for long-term (current) use of antibiotics Discitis of lumbar region Epidural abscess Normal Saline Flush 0.9 % Intravenous Solution [id number] 06/16/2019 12:00:00 AM EST 10 mL Intravenous aborted Encounte r for long-term (current) use of antibioticsDiscitis of lumbar regionEpidural abscess I nject 10 mLs into the vein as needed (For before and after infusion and prn) [facility] Encounter for long-term (current) use of antibiotics Discitis of lumbar region Epidural abscess Tamsulosin hydrochloride 0.4 MG Oral Cap delphine Tamsulosin HCl 0.4 MG Oral Capsule (FLOMAX) Tamsulosin HCl 0.4 MG Oral Capsule (FLOMAX) 06/16/2019 12:00 :00 AM EST 0.4 mg Oral aborted Take 1 capsule b y mouth daily [facility] POLYETHYLENE GLYCOL 3350 142 MG/ML Oral Solution Polyethylene Glycol 3350 Oral Packet (MIRALAX) Polyethylene Glycol 3350 Oral Packet (MIRALAX) 019 12:00:00 AM EST 17 g Oral active Take 1 packet by mouth daily Please substitute bottle for packets, if packets are unavailable. [facility] Tamsulosin hydrochloride 0.4 MG Oral Cap delphine Tamsulosin HCl 0.4 MG Oral Capsule (FLOMAX) Tamsulosin HCl 0.4 MG Oral Capsule (FLOMAX) 06/16/2019 12:00 :00 AM EST 0.4 mg Oral active Take 1 capsule b y mouth daily [facility] Ferrous Sulfate 325 (65 Fe) MG Ferrous Sulfate 06/16/2019 12:00:00 AM EST completed NETSMART ([facility]) Losartan Potassium 100 MG Losartan Potassium 06/16/2019 12:00:00 AM EST completed NETSMART ([facility]) Tamsulosin HCl 0.4 MG Tamsulosin HCl 06/16/2019 12:00:00 AM EST completed NETSMART ([facility]) Omeprazole 20 MG Omeprazole 06/16/2019 12:00:00 AM EST completed NETSMART ([facility] ) Pravastatin Sodium 20 MG Pravastatin Sodium 06/16/2019 12:00:00 AM EST completed NETSMART ([facility]) POLYETHYLENE GLYCOL 3350 142 MG/ML Oral Solution Polyethylene Glycol 3350 Oral Packet (MIRALAX) Polyethylene Glycol 3350 Oral Packet (MIRALAX) 019 12:00:00 AM EST 17 g Oral aborted Take 1 packet by mouth daily Please substitute bottle for packets, if packets are unavailable. [facility] Heparin Lock Flush 100 UNIT/ML Heparin Lock Flush 06/16/2019 12:00: 00 AM EST 5.0 {ml} completed NETSMART ([facility]) CefTRIAXone Sodium 2 GM CefTRIAXone Sodium 06/16/2019 12:00:00 AM EST completed NETSMART ([facility]) Normal Saline Flush 0.9 % Normal Saline Flush 06/16/2019 12:00:00 A M EST 10.0 {ml} completed NETSMART ([facility]) Vancomycin HCl 1.5 GM Vancomycin HCl 06/16/2019 12:00:00 AM EST completed NETSMART ([facility]) Acetaminophen 325 MG Oral Tablet Acetaminophen 325 MG Oral T ablet 06/15/2019 12:00:00 AM EST 975 mg Oral active Take 3 tablets by mouth every 8 (eight) hours [facility] sennosides, SENIOR CARE 8.6 MG Oral Tablet Senna 8.6 MG Oral T ablet Senna 8.6 MG Oral Tablet 06/15/2019 12:00:00 AM EST 2 {tbl} Oral aborted Take 2 tablets by mouth nightly [facility] Ceftriaxone 2000 MG Injection cefTRIAXone (ROCEPHIN) i nfusion 2 g cefTRIAXone (ROCEPHIN) infusion 2 g 06/15/2019 12:00:00 AM EST 2 g Intraveno us completed Inject 2 g into the vein every 2 4 (twenty-four) hours [facility] Vancomycin HCl 1500 MG/300ML Intravenous Solution (VANCOCIN) [id number] 06/15/2019 12:00:00 AM EST 1500 mg Intravenous aborted Inject 300 mLs into the vein every 24 (twenty-four) hours [facility] ferrous sulfate 325 MG Oral Tablet Ferrous Sulfate 325 (65 Fe) MG Oral Tablet Ferrous Sulfate 325 (65 Fe) MG Oral Tablet 06/15/2019 12:00:00 AM EST 325 mg Oral active Take 1 tablet by zaira th daily with [facility] sennosides, SENIOR CARE 8.6 MG Oral Tablet Senna 8.6 MG Oral T ablet Senna 8.6 MG Oral Tablet 06/15/2019 12:00:00 AM EST 2 {tbl} Oral aborted Take 2 tablets by mouth nightly [facility] sennosides, SENIOR CARE 8.6 MG Oral Tablet Senna 8.6 MG Oral T ablet Senna 8.6 MG Oral Tablet 06/15/2019 12:00:00 AM EST 2 {tbl} [facility]orted [facility] MG Oral Tablet Ferrous Sulfate 325 (65 Fe) MG Oral Tablet Ferrous Sulfate 325 (65 Fe) MG Oral Tablet 06/15/2019 12:00:00 AM EST 325 mg Oral aborted Take 1 tablet by zaira daily with [facility] ferrous sulfate 325 MG Oral Tablet Ferrous Sulfate 325 (65 Fe) MG Oral Tablet Ferrous Sulfate 325 (65 Fe) MG Oral Tablet 06/15/2019 12:00:00 AM EST 325 mg Oral aborted Take 1 tablet by zaira daily with [facility] ferrous sulfate 325 MG Oral Tablet Ferrous Sulfate 325 (65 Fe) MG Oral Tablet Ferrous Sulfate 325 (65 Fe) MG Oral Tablet 06/15/2019 12:00:00 AM EST 325 mg Oral aborted Take 1 tablet by zaira daily with [facility] influenza vac split quad (FLUARIX) injection 6 months and ol tatyana 0.5 mL [id number] 06/14/2019 07:11:50 PM EST 0.5 mL Intramuscular complet ed 0.5 mL, Intramuscular, Give Now, Starting Wed06/14/19 at 1911, For 1 dose [facility] Medication administered onsite sodium phosphate 6 mmol/100 mL IVPB 06/14/2019 12:00:00 PM EST 6 mmol Intravenous completed 6 mmol, Intra venous, at 50 mL/hr, Every 2 hours, First dose (after last reorder) on Wed06/14/19 at 1200, For 2 doses
Slower infusion rate (e.g. over 4 to 6 hours) are recommended in patients with renal impairment and/or less severe hypophosphatemia.
[facility] Medication administered onsite magnesium sulfate in dextrose 5 % infusion (premix) 8 mEq [id number] 06/14/2019 11:00:00 AM EST 8 meq Intravenous completed 8 mEq, Intravenous, Administer over 60 Minutes, Every 1 hour, First dose on Wed06/14/19 at 1100, For 2 doses
each 8 mEq equivalent to 1 gm
[facility] Medication administered onsite Tamsulosin hydrochloride 0.4 MG Oral Capsule tamsulosi n (FLOMAX) capsule 0.4 mg tamsulosin (FLOMAX) capsule 0.4 mg 06/14/2019 11:00:00 AM EST 0.4 mg Oral active 0.4 mg, Oral, Daily Standard, First dose on Wed06/14/19 at 1100, For 30 days
Swallow whole. Do not crush, chew or open.
[facility] Medication administered onsite Magnesium Oxide 400 MG Oral Tablet Magnesium Oxide (MA G-OX) tablet 400 mg Magnesium Oxide (MAG-OX) tablet 400 mg 06/14/2019 10:30:00 AM EST 4 00 mg Oral completed 400 mg, Oral, Once, Wed08/15/18 at 1030, For 1 dose [facility] Medication administered onsite potassium phosphate 155 [...] mEq), and potassium 45 mg (1.1 mEq)
[facility] Medication administered onsite Hydralazine Hydrochloride 20 [...] minutes.TO BE GIVEN ONLY IF S BP>170
[facility] Medication administered onsite sodium phosphate 6 mmol/100 mL IVPB 06/13/2019 12:00:00 PM EST 6 mmol Intravenous completed 6 mmol, Intra venous, at 50 mL/hr, Every 2 hours, First dose on Wed06/13/19 at 1200, For 2 doses
Slower infusion rate (e.g. over 4 to 6 hours) are recommended in patients with renal impairment and/or less severe hypophosphatemia.
[facility] Medication administered onsite Bisacodyl 10 MG Rectal Suppository bisacodyl (DULCOLAX ) suppository 10 mg bisacodyl (DULCOLAX) suppository 10 mg 06/13/2019 10:30:00 AM EST 10 mg Rectal completed 10 mg, Rectal, Once, Wed06/13/19 at 1030, For 1 dose [facility] Medication administered onsite Bisacodyl 10 MG Rectal Suppository bisacodyl (DULCOLAX ) suppository 10 mg bisacodyl (DULCOLAX) suppository 10 mg 06/13/2019 10:27:21 AM EST 10 mg Rectal active 10 mg, Rectal, Daily PRN, Constipation, Starting Wed06/13/19 at 1027, For 30 days [facility] Medication administered onsite sodium chloride (preservative [...] mL Heparin 10 units/mL to lock.Reference Policy [facility] Central Line Policy.
[Order 2 [...] and 2 mL Heparin 10 units/mL.Reference Policy [address] Central Line Policy.
[Order 3 End] [Order 4 Start] Name: heparin lock flush 10 UNIT/ML injection 20 Units Signed Summary: 20 Units, Intravenous, Every 12 hours, First dose on Wed06/13/19 at 1030, For 30 days
WHEN NOT IN USE - Verify blood return before use. Flush with 10 mL of Sodium Chloride 0.9 % and 2 mL Heparin 10 units/mL.Reference Policy [address] Central Line Policy.
[Order 4 End] [facility] Medication administered onsite lidocaine (XYLOCAINE) 1 % injection 5 mL [id number] 06/13/2019 10:26:31 AM EST 5 mL Subcutaneous active 5 m L, Subcutaneous, Once PRN, for PICC insertion, Starting Wed06/13/19 at 1026, For 30 days [facility] Medication administered onsite Ceftriaxone 2000 MG Injection cefTRIAXone (ROCEPHIN) I VPB (premix) 2 g cefTRIAXone (ROCEPHIN) IVPB (premix) 2 g 06/12/2019 06:30:00 PM EST 2 g Intravenous active 2 g, Intraven ous, at 100 mL/hr, Every 24 hours, First dose on Wed06/12/19 at 1830, For 7 days
Discouraged Uses: Empiric treatment of post-surgical meningitis (ceftazidime preferred)
[facility] Medication administered onsite Losartan Potassium 50 MG Oral Tablet losartan (COZAAR) tablet 50 mg losartan (COZAAR) tablet 50 mg 06/12/2019 11:15:00 AM EST 50 mg Oral active 50 mg, Oral, Daily Standard, First dose on Wed06/12/19 at 1115, For 30 days
Check vital signs before administering
[facility] Medication administered onsite Insulin Glargine 100 [...] glucose more than 400 mg/dL: notify provider
[facility] Medication administered onsite 0.4 ML Enoxaparin sodium 100 MG/ML Prefi lled Syringe enoxaparin sodium (LOVENOX) injection 40 mg enoxaparin sodium (LOVENOX) injection 40 mg 06/12/2019 09:00:00 AM EST 40 mg Subcutaneous active 40 mg, Subcutaneous, Daily Standard, First dose on Wed06/12/19 at 0900, For 30 days [facility] Medication administered onsite POLYETHYLENE GLYCOL 3350 [...] due to potential increased risk for aspiration.
[facility] Medication administered onsite Hydralazine Hydrochloride 20 [...] minutes.TO BE GIVEN ONLY IF S BP>170
[facility] Medication administered onsite sennosides, SENIOR CARE 8.6 MG Oral Tablet senna 8.6 MG 2 tablet sen na 8.6 MG 2 tablet 06/11/2019 10:00:00 PM EST 2 {tbl} Oral active 2 tablet, Oral, Nightly, First dose on 06/11/19 at 2200, For 30 days [facility] Medication administered onsite Insulin Lispro 100 [...] Summary or Summary Report within the ED.
[facility] Medication administered onsite Glucose 0.4 MG/MG Oral Gel glucose (GLUTOSE) 40 % oral gel 15 g glucose (GLUTOSE) 40 % oral gel 15 g 06/11/2019 02:11:29 PM EST 15 g Oral active 15 g, Oral, PRN, Low blood s ugar, for gluose 55-69 mg/dl and able to take PO, Starting 06/11/19 at 1411, For 30 days [facility] Medication administered onsite vancomycin (VANCOCIN) infusion 1,500 mg/300 mL (premix) [id number] 06/11/2019 09:08:45 AM EST 1500 mg Intravenous active 1,500 mg, Intravenous, Administer over 90 Minutes, Every 24 hours, First dose (after last modification) on 06/11/19 at 0915, For 7 doses [facility] Medication administered onsite Piperacillin 3000 MG / tazobactam 375 MG Injection piperacillin-tazobactam (ZOSYN) IVPB 3.375 g (premix) piperacillin-tazobactam (ZOSYN) IVPB 3.3 75 g (premix) 06/11/2019 09:00:00 AM EST 3.375 g Intravenous abo rted 3.375 g, Intravenous, Administer over 4 Hours, Every 8 hours Standard (3 times per day), First dose on 06/11/19 at 0900, For 3 days [facility] Medication administered onsite Acetaminophen 325 MG Oral Tablet acetaminophen (TYLENO L) tablet 975 mg acetaminophen (TYLENOL) tablet 975 mg 06/11/2019 08:15:00 AM EST 97 5 mg Oral active 975 mg, Oral, E very 8 hours, First dose on 06/11/19 at 0815, For 30 days
Maximum daily dose of acetaminophen is 3,000 mg from all sources in 24 hours.
[facility] Medication administered onsite dextrose 50 % IV solution 25 mL [id number] 06/10/2019 11:20:[address] 25 mL Intravenous active 25 mL, Intrav enous, PRN, Other, blood glucose <55, Starting 06/10/19 at 2320, For 30 days
Not for midline administration.
[facility] Medication administered onsite Glucagon 1 MG Injection glucagon (human recombinant) ( GLUCAGEN) injection 1 mg glucagon (human recombinant) (GLUCAGEN) injection 1 mg 06/10/2019 11:20:42 PM EST 1 mg Intramuscular active 1 mg, Intramuscular, PRN, for glucose <55 without IV access, Starting 06/10/19 at 2320, For 30 days [facility] Medication administered onsite Glucose 0.4 MG/MG Oral Gel glucose (GLUTOSE) 40 % oral gel 15 g glucose (GLUTOSE) 40 % oral gel 15 g 06/10/2019 11:20:42 PM EST 15 g Oral active 15 g, Oral, PRN, Low blood s ugar, for gluose 55-69 mg/dl and able to take PO, Starting 06/10/19 at 2320, For 30 days [facility] Medication administered onsite tramadol hydrochloride 50 MG Oral Tablet traMADol HCl 50 MG Oral Tablet (ULTRAM) traMADol HCl 50 MG Oral Tablet (ULTRAM) 50 mg Oral aborted Take 50 mg by mouth every 6 (six) hours as needed for [facility] Acetaminophen 325 MG Oral Tablet Acetaminophen 325 MG Oral Tablet 650 mg Oral aborted Take 650 mg by mouth every 6 (six) hours as needed for [facility] meloxicam 15 MG Oral Tablet Meloxicam 15 MG Oral Table t (MOBIC) Meloxicam 15 MG Oral Tablet (MOBIC) 15 mg Oral aborted Take 15 mg by mouth daily [facility] Pravastatin Sodium 20 MG Oral Tablet Pra vastatin Sodium 20 MG Oral Tablet (PRAVACHOL) Pravastatin Sodium 20 MG Oral Tablet (PRAVACHOL) 20 mg Oral aborted Take 20 mg by mouth daily [facility] Insurance Providers Payer name Policy type / Coverage type Policy ID Covered libertarian ID Covered libertarian's relationship to smith Policy Smith Plan Information MEDICARE BLUE PPO 306 [id number] SP [id number] MEDICARE BLUE PPO 306 [id number] SP [id number] EXCELLUS BCBS B [id number] S VYM MEDICARE [id number] SP [id number] EXCELLUS MEDICARE BLUE PPO G [id number] Self [id number] EXCELLUS BCBS MCR HMO [id number] S [id number] MEDICARE BLUE PPO 306 [id number] SP [id number] MEDICARE BLUE PPO 306 [id number] SP [id number] BLUE CROSS BLUE SHIELD MCR -OP [id number] 18 [id number] MEDICARE BLUE PPO 306 [id number] SP [id number] BLUE CROSS BLUE SHIELD -O/P [id number] 18 [id number] MEDICARE BLUE PPO 306 [id number] SP [id number] EXCELLUS BCBS B [id number] S VYM MEDICARE BLUE PPO 306 [id number] SP [id number] BCBS [place] PPO [id number] MEDICARE [id number] SP [id number] A [facility] [id number] Blue Shield MCR Advantage Commercial [id number] Self [id number] MVP (pr) Medigap Part B [id number] Family Dependent [id number] Blue Shield MCR Advantage Commercial [id number] Self [id number] Blue Shield MCR Advantage Commercial [id number] Self [id number] O UNAVAILABLE UNAVAILA BLE Problems, Conditions, and Diagnoses Code Display Name Description Problem Type Effective Dates Data Source(s) 11836844 Essential hypertension Essential hypertension Problem 01/15/2020 12:00:00 AM EDT MEDENT ([facility] ) 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 Problem 01/08/2020 12:00:00 AM EDT eCW1 ([facility]) [id number] Carotid artery stenosis Carotid artery stenosis Proble m 12/25/2019 12:00:00 AM EDT MEDENT ([facility], ) [id number] Ischemic stroke Ischemic stroke Problem 12/25/2019 12:0 0:00 AM EDT MEDENT ([facility] ) I48.92 Unspecified atrial flutter Unspecified atrial flutter Problem 11/25/2019 01:00:00 AM EDT NETSMART ([facility] ) 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, or unspecified chronic kidney disease Hypertensive chronic kidney disease with stage 1 through stage 4 chronic kidney disease, or unspecified chronic kidney disease Problem 11/25/2019 01:00:00 AM ED T NETSMART ([facility]) 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 Problem 11/25/2019 01:00:00 AM EDT NETSMART ([facility] ) N18.9 Chronic kidney disease, unspecified Chronic kidn ey disease, unspecified Problem 11/25/2019 01:00:00 AM EDT NETSMART ([facility]) D63.1 Anemia in chronic kidney disease Anemia in chronic kid sonal disease Problem 11/25/2019 01:00:00 AM EDT NETSMART ([facility] ) E11.40 Type 2 diabetes mellitus with diabetic n europathy, unspecified Type 2 diabetes mellitus with diabetic neuropathy, unspecified Problem 11/25/2019 01:00:00 AM EDT NETSMART ([facility] ) M48.061 Spinal stenosis, lumbar region without n eurogenic claudication Spinal stenosis, lumbar region without neurogenic claudication Problem 11/25/2019 01:00:00 AM EDT NETSMART ([facility] ) 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, lumbar region Intervertebral disc disorders with radiculopathy, lumbar region Problem 11/25/2019 01:00:00 AM EDT NETSMART ([facility] ) M54.30 Sciatica, unspecified side Sciatica, unspecified side Problem 11/25/2019 01:00:00 AM EDT NETSMART ([facility] ) M19.90 Unspecified osteoarthritis, unspecified site Unspecified osteoarthritis, unspecified site Problem 11/25/2019 01:00:00 AM EDT NETSMART ([facility]) D50.9 Iron deficiency anemia, unspecified Iron deficie ncy anemia, unspecified Problem 11/25/2019 01:00:00 AM EDT NETSMART ([facility]) R33.8 Other retention of urine Other retention of urine Prob norberto 11/25/2019 01:00:00 AM EDT NETSMART ([facility] ) Z46.6 Encounter for fitting and adjustment of urinary device Encounter for fitting and adjustment of urinary device Problem 11/25/2019 01:00:00 AM EDT NETSMART ([facility]) Z91.81 History of falling History of falling Problem 0 01:00:00 AM EDT NETSMART ([facility]) Z79.4 detention (current) use of insulin detention (cu rrent) use of insulin Problem 11/25/2019 01:00:00 AM EDT NETSMART ([facility]) Z79.01 detention (current) use of anticoagulant s detention (current) use of anticoagulants Problem 11/25/2019 01:00:00 AM EDT NETSMART ([facility]) Z87.891 Personal history of nicotine dependence Personal history of nicotine dependence Problem 11/25/2019 01:00:00 AM EDT NETSMART ([facility]) 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 ebral infarction affecting right dominant side Problem 11/24/2019 01:00:00 AM EDT NET SMART ([facility]) R33.9 Urinary retention Urinary retention Problem 08/23/2019 12:00:00 AM EST eCW1 ([facility]) R33.9 Urinary retention Urinary retention Problem 08/23/2019 12:00:00 AM EST eCW1 ([facility]) Z46.6 Encounter for fitting and adjustment of urinary device Encounter for fitting and adjustment of urinary device Problem 08/10/2019 12:00:00 AM EST NETSMART ([facility]) R33.8 Other retention of urine Other retention of urine Prob norberto 08/10/2019 12:00:00 AM EST NETSMART ([facility] ) E11.40 Type 2 diabetes mellitus with diabetic n europathy, unspecified Type 2 diabetes mellitus with diabetic neuropathy, unspecified Problem 08/10/2019 12:00:00 AM EST NETSMART ([facility] ) 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, or unspecified chronic kidney disease Hypertensive chronic kidney disease with stage 1 through stage 4 chronic kidney disease, or unspecified chronic kidney disease Problem 08/10/2019 12:00:00 AM ES T NETSMART ([facility]) 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 Problem 06/16/2019 12:00:00 AM EST NETSMART ([facility]) 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 Problem 06/16/2019 12:00:00 AM EST NETSMART ([facility] ) N18.9 Chronic kidney disease, unspecified Chronic kidn ey disease, unspecified Problem 06/16/2019 12:00:00 AM EST NETSMART ([facility]) M19.90 Unspecified osteoarthritis, unspecified site Unspecified osteoarthritis, unspecified site Problem 06/16/2019 12:00:00 AM EST NETSMART ([facility]) Z91.81 History of falling History of falling Problem 9 12:00:00 AM EST NETSMART ([facility]) Z79.4 long term acute care registered nurse (current) use of insulin long term acute care registered nurse (cu rrent) use of insulin Problem 06/16/2019 12:00:00 AM EST NETSMART ([facility]) R33.9 Retention of urine, unspecified Retention of urine, un specified Problem 06/16/2019 12:00:00 AM EST NETSMART ([facility] ) Z51.81 Encounter for therapeutic drug level mon itoring Encounter for therapeutic drug level monitoring Problem 06/16/2019 12:00:00 AM EST NETSMART ( [facility]) Z79.2 detention (current) use of antibiotics L robert term (current) use of antibiotics Problem 06/16/2019 12:00:00 AM EST NETSMART ([facility]) M46.46 Discitis, unspecified, lumbar region Dis citis, unspecified, lumbar region Problem 06/16/2019 12:00:00 AM EST NETSMART ([facility]) M46.46 Discitis, unspecified, lumbar region Dis citis, unspecified, lumbar region Problem 06/14/2019 12:00:00 AM EST NETSMART ([facility]) M4646 Discitis, unspecified, lumbar region Discitis, u nspecified, lumbar region Diagnosis 07/18/2019 01:14:00 PM [facility] 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 granuloma Diagnosis 07/18/2019 01:14:00 PM [facility] 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, unspeci fied Extradural and subdural abscess, unspecified Diagnosis 07/10/2019 10:52:00 AM [facility] R33.9 Retention of urine, unspecified RETENTION OF URINE, UN SPECIFIED Diagnosis 06/30/2019 09:29:00 AM [facility] Z792 long term acute care registered nurse (current) use of antibiotics L robert term (current) use of antibiotics Diagnosis 06/26/2019 02:46:00 PM [facility] R33.9 Retention of urine, unspecified Retention of urine, un specified Diagnosis 06/15/2019 02:55:41 PM [facility] I10 Essential (primary) hypertension Essential (primary) h ypertension Diagnosis 06/13/2019 09:07:47 PM [facility] Surgeries/Procedures Procedure Description Date Indications Data Source(s) Medication: Lidocaine HCl 2% Jelly 5mL Intravesically 08/05/2020 12:00:00 AM EST eCW1 ([facility]) Medication: Lidocaine HCl 2% Jelly 5mL Intravesically 07/16/2020 12:00:00 AM EST eCW1 ([facility]) BLDR IRRIGATION SMPL LAVAGE&/INSTLJ 06/27/2020 12:00:0 0 AM EST eCW1 ([facility]) Medication: Lidocaine HCl 2% Jelly 5mL Intravesically 06/20/2020 12:00:00 AM EST eCW1 ([facility]) Medication: Lidocaine HCl 2% Jelly 5mL Intravesically 05/20/2020 12:00:00 AM EST eCW1 ([facility]) Burt Catheter Insertion 20F 04/05/2020 12:00:00 AM ED T eCW1 ([facility]) Medication: Lidocaine HCl 2% Jelly 5mL Intravesically 03/26/2020 12:00:00 AM EDT eCW1 ([facility]) TSTG ANS FUNCJ CARDIOVAGAL INNERVAJ PARASYMP 0 12:00:00 AM EDT MEDENT ([facility], ) TSTG ANS FUNCJ CARDIOVAGAL INNERVAJ PARASYMP 0 12:00:00 AM EDT MEDENT ([facility], ) TESTING AUTONOMIC NERVOUS SYSTEM FUNCTION 01/26/2020 1 2:00:00 AM EDT MEDENT ([facility], ) TESTING AUTONOMIC NERVOUS SYSTEM FUNCTION 01/26/2020 1 2:00:00 AM EDT MEDENT ([facility], ) NON-INVASIVE PHYSIOLOGIC STUDY EXTREMITY 3 LEVLS 01/25 12:00:00 AM EDT MEDENT ([facility], ) Burt Catheter Coude Insertion 20F 01/09/2020 12:00:00 AM EDT eCW1 ([facility]) Magnetic Resonance Angiogtaphy Head W/O Contrast Material(S) 01/01/2020 12:00:00 AM EDT MEDENT ([facility] ) Magnetic Resonance Angiogtaphy Head W/O Contrast Material(S) 01/01/2020 12:00:00 AM EDT MEDENT ([facility]) Magnetic Resonance Angiography Neck W/O And Then With Contra st ML 01/01/2020 12:00:00 AM EDT MEDENT ([facility]) Magnetic Resonance Angiography Neck W/O And Then With Contra st ML 01/01/2020 12:00:00 AM EDT MEDENT ([facility]) Office Visit, Est Pt., Level 3 FC 11/16/2019 12:00:00 AM EDT eCW1 ([facility]) Office Visit, Est Pt., Level 3 PC 11/16/2019 12:00:00 AM EDT eCW1 ([facility]) INSERT BLADDER CATH, COMPLEX 11/16/2019 12:00:00 AM ED T eCW1 ([facility]) Office Visit, New Pt., Level 2 FC 08/23/2019 12:00:00 AM EST eCW1 ([facility]) Office Visit, New Pt., Level 3 PC 08/23/2019 12:00:00 AM EST eCW1 ([facility]) POCT GLUCOSE, DOCKED POCT GLUCOSE, DOCKED Routine 06/15/2019 11:39 AM EST 06/15/2019 04:39:00 PM [facility] IRON BINDING CAPACITY TOTAL FE BINDING CAPACITY STAT 9 9:31 AM EST 06/15/2019 02:31:00 PM [facility] BLOOD COUNT COMPLETE AUTOMATED CBC STAT 06/15/2019 9:31 A M EST 06/15/2019 02:31:00 PM [facility] FERRITIN FERRITIN LEVEL STAT 06/15/2019 9:31 AM EST 06/15/2019 02:31:00 PM [facility] DRUG SCREEN QUALITATIVE VANCOMYCIN VANCOMYCIN, TROUGH Routine 06/15/2019 9:31 AM EST 06/15/2019 02:31:00 PM [facility] POCT GLUCOSE, DOCKED POCT GLUCOSE, DOCKED Routine 06/15/2019 7:51 AM EST 06/15/2019 12:51:00 PM [facility] BLOOD COUNT COMPLETE AUTO&AUTO DIFRNTL WBC COUNT CBC AND DIFFER ENTIAL Routine 06/15/2019 3:15 AM EST 06/15/2019 08:15:00 AM [facility] PHOSPHORUS INORGANIC PHOSPHORUS LEVEL Routine 06/15/2019 3:[address] 06/15/2019 08:15:00 AM [facility] MAGNESIUM MAGNESIUM LEVEL Routine 06/15/2019 3:15 AM EST 06/15/2019 08:15:00 AM [facility] BASIC METABOLIC PANEL CALCIUM TOTAL BASIC METABOLIC PANEL Routi ne 06/15/2019 3:15 AM EST 06/15/2019 08:15:00 AM [facility] GLUCOSE QUANTITATIVE BLOOD XCPT REAGENT STRIP POCT GLUCOSE, DOC KED Routine 06/14/2019 8:36 PM EST 06/15/2019 01:36:00 AM [facility] GLUCOSE QUANTITATIVE BLOOD XCPT REAGENT STRIP POCT GLUCOSE, DOC KED Routine 06/14/2019 4:25 PM EST 06/14/2019 09:25:00 PM [facility] GLUCOSE QUANTITATIVE BLOOD XCPT REAGENT STRIP POCT GLUCOSE, DOC KED Routine 06/14/2019 11:42 AM EST 06/14/2019 04:42:00 PM [facility] BLOOD COUNT COMPLETE AUTOMATED CBC Routine 06/14/2019 8:28 A M EST 06/14/2019 01:28:00 PM [facility] PHOSPHORUS INORGANIC PHOSPHORUS LEVEL Routine 06/14/2019 8:[address] 06/14/2019 01:28:00 PM [facility] MAGNESIUM MAGNESIUM LEVEL Routine 06/14/2019 8:28 AM EST 06/14/2019 01:28:00 PM [facility] BASIC METABOLIC PANEL CALCIUM TOTAL BASIC METABOLIC PANEL Routi ne 06/14/2019 8:28 AM EST 06/14/2019 01:28:00 PM [facility] GLUCOSE QUANTITATIVE BLOOD XCPT REAGENT STRIP POCT GLUCOSE, DOC KED Routine 06/14/2019 7:58 AM EST 06/14/2019 12:58:00 PM [facility] GLUCOSE QUANTITATIVE BLOOD XCPT REAGENT STRIP POCT GLUCOSE, DOC KED Routine 06/13/2019 9:04 PM EST 06/14/2019 02:04:00 AM [facility] GLUCOSE QUANTITATIVE BLOOD XCPT REAGENT STRIP POCT GLUCOSE, DOC KED Routine 06/13/2019 4:28 PM EST 06/13/2019 09:28:00 PM [facility] PICC ULTRASOUND - BEDSIDE PROCEDURE PICC ULTRASOUND - BEDSI DE PROCEDURE Routine 06/13/2019 2:41 PM EST 06/13/2019 07:41:00 PM [facility] GLUCOSE QUANTITATIVE BLOOD XCPT REAGENT STRIP POCT GLUCOSE, DOC KED Routine 06/13/2019 11:48 AM EST 06/13/2019 04:48:00 PM [facility] BLOOD COUNT COMPLETE AUTO&AUTO DIFRNTL WBC COUNT CBC AND DIFFER ENTIAL Routine 06/13/2019 9:32 AM EST 06/13/2019 02:32:00 PM [facility] PHOSPHORUS INORGANIC PHOSPHORUS LEVEL Routine 06/13/2019 9:[address] 06/13/2019 02:32:00 PM [facility] MAGNESIUM MAGNESIUM LEVEL Routine 06/13/2019 9:32 AM EST 06/13/2019 02:32:00 PM [facility] BASIC METABOLIC PANEL CALCIUM TOTAL BASIC METABOLIC PANEL Routi ne 06/13/2019 9:32 AM EST 06/13/2019 02:32:00 PM [facility] GLUCOSE QUANTITATIVE BLOOD XCPT REAGENT STRIP POCT GLUCOSE, DOC KED Routine 06/13/2019 7:19 AM EST 06/13/2019 12:19:00 PM [facility] GLUCOSE QUANTITATIVE BLOOD XCPT REAGENT STRIP POCT GLUCOSE, DOC KED Routine 06/12/2019 9:55 PM EST 06/13/2019 02:55:00 AM [facility] GLUCOSE QUANTITATIVE BLOOD XCPT REAGENT STRIP POCT GLUCOSE, DOC KED Routine 06/12/2019 4:31 PM EST 06/12/2019 09:31:00 PM [facility] RADEX SPINE LUMBOSACRAL 2/3 VIEWS XR SPINE LUMBAR 2-3 VIEWS 721 00 Routine 06/12/2019 3:41 PM EST 06/12/2019 08:41:49 PM [facility] GLUCOSE QUANTITATIVE BLOOD XCPT REAGENT STRIP POCT GLUCOSE, DOC KED Routine 06/12/2019 11:27 AM EST 06/12/2019 04:27:00 PM [facility] CUL PRSMPTV PTHGNC ORGANISM SCRN W/COLONY ESTIMJ MRSA CULTURE Routine 06/12/2019 11:25 AM EST 06/12/2019 04:25:00 PM [facility] Results ID Date Data Source [id number] 03/24/2020 07:15:41 AM EDT [facility] Name Value Range Interpretation Code Description Data Tania rce(s) Supporting Document(s) Progress Note [facility] YNETXm2vKbLQQmZd22/DPHnxZVKip2TqNDadQGo8RIaiBBJvO8NgENR0lG0sPXT2PApOOqBqZfEsOVD2 lbm [file] GiPaCEG6UZTsV3OtSWTxOCXqWG0gPXILBc3+RKuzdKFowVceDTHMNnY5HiK7NXaeTRKXUm4D ID Date Data Source [id number] 03/16/2020 09:30:46 AM EDT [facility] XR SPINE LUMBAR 4-MORE VIEWS [id number] RESULTInterpreted by:VIOLETTA Moya SPINECLINICAL STATEMENT: Low back [...] rce(s) Supporting Document(s) ID Date Data Source [id number] 09/25/2019 04:13:27 PM EDT [facility] XR SPINE LUMBAR 4-MORE VIEWS [id number] RESULTInterpreted by:Violetta Maciel spine 4 viewsINDICATION: Lumbar [...] rce(s) Supporting Document(s) ID Date Data Source [id number] 09/24/2019 11:36:26 AM EDT [facility] Name Value Range Interpretation Code Description Data Tania rce(s) Supporting Document(s) Progress Note [facility] YFUWBm8hHwCAMsDq22/LOCuiIFDjb0DwIGhgQZq9LNqiROKnW1WfVOT7fD6fZXL0HIyHVkDlJjEdWxO8 m [file] 9Bqzbi2hyyjdlufTRiNg7gB7Hn/u4qOMnB8KOGH5Orrm+production cloth cutter/8G0TcNRraJEfAny5dtd3aMdJruhKbE0s [file] X8baMzJRj2KmH3Gz3TUIANT6SGFh== ID Date Data Source [id number] 08/04/2019 03:18:58 PM [facility] XR SPINE-ENTIRE THORACIC AND LUMBAR- 2 O R 3 VIEW [id number] RESULTInterpreted by:Sage Shepherd MDEXAM: Entire thoracic and [...] rce(s) Supporting Document(s) ID Date Data Source [id number] 07/30/2019 07:47:45 AM EST [facility] Name Value Range Interpretation Code Description Data Tania rce(s) Supporting Document(s) Progress Note [facility] EEVMDi5xSeQBHfTi81/GOZmdWIJxv8UcXFlcGJz4YCyoFBKcF9CuZNG1zD7yWNX3KOfOQmSrSuIhKyHi lbm [file] H+R/Lvhy+Cárdenas/41kzp0HP1CZs/8T1upyR09+jlDDfYVfR2RQ7pNqicQOqsEE4KIum50Gf3YO2rM7GyNw [file] xLPCWeXybJKr7AwNafQQ28EMqa6tBM3/WM7oLT+c0VsK8/QWA/Matt+j/aOitnARJ898sdg8fyp40J+vp project [file] NcW0J6FtYrUyPtXX6VSg9NGtA2ZNZ7yNYhKf0IPKY3GyGZOyPfQC7JCQr= ID Date Data Source [id number] 07/24/2019 12:01:52 PM [facility] Name Value Range Interpretation Code Description Data Tania rce(s) Supporting Document(s) Progress Note [facility] YNGLBk2oLkESKyYk39/HZMizILVfu1TmSNfkCDn2VZrcDAYnB3PpYAT5iW0xNDT9POnBNnVoYcCsARS4 lbm [file] NWBIX0ZXXp== ID Date Data Source [id number] 07/18/2019 02:50:00 PM EST [facility] Name Value Range Interpretation Code Description Data Tania rce(s) Supporting Document(s) Erythrocyte sedimentation rate by Westergren method 41 mm/hr 0 - 20 H [facility] SED RATE REENTER 41 [facility] ID Date Data Source [id number] 07/18/2019 02:31:00 PM EST [facility] Name Value Range Interpretation Code Description Data Tania rce(s) Supporting Document(s) COMPREHENSIVE METABOLIC PANEL [facility] COMPREHENSIVE METABOLIC PANEL Sodium [Moles/volume] in Serum or Plasma 140 mEq/L 134 - 153 [facility] Potassium [Moles/volume] in Serum or Plasma 4.8 mEq/L 3.6 - 5.0 [facility] Chloride [Moles/volume] in Serum or Plasma 103 mEq/L 98 - 107 [facility] Carbon dioxide, total [Moles/volume] in Serum or Plasma 25 MEQ/L 22 - 30 [facility] Glucose [Mass/volume] in Serum or Plasma 145 MG/DL 65 - 110 H [facility] BUN 23 MG/DL 7 - [facility] Creatinine [Mass/volume] in Serum or Plasma 0.9 MG/DL 0.7 - 1.5 [facility] BUN/CREAT 26 8 - 27 [facility] Protein [Mass/volume] in Serum or Plasma 6.7 G/DL 6.3 - 8.2 [facility] Albumin [Mass/volume] in Serum or Plasma 3.7 G/DL 3.9 - 5.0 L [facility] Globulin [Mass/volume] in Serum by calculation 3.0 GM/DL 2.4 - 3.2 [facility] A/G RATIO 1.2 0.8 - 2.0 [facility] Calcium [Mass/volume] in Serum or Plasma 9.3 MG/DL 8.4 - 10.2 [facility] Bilirubin.total [Mass/volume] in Serum or Plasma 0.7 MG/DL 0.2 - 1.3 [facility] Alkaline phosphatase [Enzymatic activity/volume] in Serum or Plasma 175 U/L 38 - 126 H [facility] Aspartate aminotransferase [Enzymatic activity/volume] in Serum or Plasma 17 U/L 5 - 40 [facility] Alanine aminotransferase [Enzymatic activity/volume] in Seru m or Plasma 16 U/L 7 - 56 [facility] Anion gap 3 in Serum or Plasma 12.0 mmol/L 8.0 - 16.0 [facility] AGE 84 yrs [facility] al NON-AA GFR >60 mL/min [facility] ital AFR AMER GFR >60 mL/min [facility] spital Male GFR In terprentation [...] >32 mL/min Normal ID Date Data Source [id number] 07/18/2019 02:22:00 PM EST [facility] Name Value Range Interpretation Code Description Data Tania rce(s) Supporting Document(s) CBC NO DIFF [facility] ital COMPLETE BLOOD COUNT Leukocytes [#/volume] in Blood by Automated count 7.9 10^3/uL 4.2 - 1 1.0 [facility] Erythrocytes [#/volume] in Blood by Automated count 3.22 10^6/uL 4. 50 - 6.30 L [facility] Hemoglobin [Mass/volume] in Blood 9.7 g/dL 14.0 - 16.0 L [facility] Hematocrit [Volume Fraction] of Blood by Automated count 31.3 % 4 1.0 - 51.0 L [facility] Erythrocyte mean corpuscular volume [Entitic volume] by Auto mated count 97.2 fL 80.0 - 94.0 H [facility] Erythrocyte mean corpuscular hemoglobin [Entitic mass] by Automated count 30.1 pg 27.0 - 34.0 [facility] Erythrocyte mean corpuscular hemoglobin concentration [Mass/volume] by Automated count 31.0 g/dL 31.0 - 36.0 [facility] Erythrocyte distribution width [Ratio] by Automated count 15.2 % 11.5 - 14.8 H [facility] Platelets [#/volume] in Blood by Automated count 319 10^3/uL 150 - 45 0 [facility] Platelet mean volume [Entitic volume] in Blood by Automated count 10.5 fL 7.4 - 10.4 H [facility] ID Date Data Source [id number] 07/10/2019 02:23:10 PM [facility] Name Value Range Interpretation Code Description Data Tania rce(s) Supporting Document(s) Progress Note [facility] YKLKYx2eKdUZAlBp73/EZWqxQIFvy5NhVMcoWHm9ENjnGVJvO9QxOKE2mU2uUUP6BZsNCiSeLiMfUEWs [facility] [file] 7e4eMB++pT3tN757r78wY+662AtiO55wewM/4H2vnP Af+GadAoHSxEj59G+Y1C4u3eZY6DEoO/WPiX9tVPNSIwpkorfNthzE/5a/FZS2v+QWZzu9p0xEdC+Vup oLU4fmMErn0DwpKgXc+Ae7J4S3PwKQ+U+PRu3YqQN6bkyJz44gKrVva80dt7fV/R4gqd4s3nE4C3j+38 N40PzN+8udvXfB5J/APt/EuVB7ixGn74cJt8sPStFj BoAdMIgYRznX/q9AH5+ykVD1OLbYLUhHrtpp9+a+aGH763nFxYTrMVD+Ct8Ax9i7Ni9wh99H1xLUahM2 eXVDx9ts4QiH+9u53A2Ud3it6C9iBeCoJ749EfhrG+u4dFcwxav94/D/[employer]+e/B/vV5x7hCakqE74I+B [file] W1BCDrBYZlGkN1WrFlEP5AWz1YIhN7UOX6kAJqNx9QXaIsTaNRIsXhHT2EGJq= ID Date Data Source [id number] 07/10/2019 12:23:00 PM [facility] Name Value Range Interpretation Code Description Data Tania rce(s) Supporting Document(s) Erythrocyte sedimentation rate by Westergren method 25 mm/hr 0 - 20 H [facility] SED RATE REENTER 25 [facility] ID Date Data Source [id number] 07/10/2019 12:07:00 PM [facility] Name Value Range Interpretation Code Description Data Tania rce(s) Supporting Document(s) C reactive protein [Mass/volume] in Serum or Plasma by High sensitivity method 11.53 MG/L 1.00 - 3.00 H [facility] CDC/S HS-CRP CUT-OFF: RELATIVE RISK: <1.0 mg/L Low 1.0 - 3.0 mg/L Average >3.0 mg/L High Optimally, the average of HS-CRP results repeated two weeks apart should be used for risk assessment. ID Date Data Source [id number] 07/10/2019 12:07:00 PM [facility] Name Value Range Interpretation Code Description Data Tania rce(s) Supporting Document(s) COMPREHENSIVE METABOLIC PANEL [facility] COMPREHENSIVE METABOLIC PANEL Sodium [Moles/volume] in Serum or Plasma 138 mEq/L 134 - 153 [facility] Potassium [Moles/volume] in Serum or Plasma 4.7 mEq/L 3.6 - 5.0 [facility] Chloride [Moles/volume] in Serum or Plasma 103 mEq/L 98 - 107 [facility] Carbon dioxide, total [Moles/volume] in Serum or Plasma 26 MEQ/L 22 - 30 [facility] Glucose [Mass/volume] in Serum or Plasma 183 MG/DL 65 - 110 H [facility] BUN 17 MG/DL 7 - 21 [facility] Creatinine [Mass/volume] in Serum or Plasma 0.9 MG/DL 0.7 - 1.5 [facility] BUN/CREAT 19 8 - 27 [facility] al Protein [Mass/volume] in Serum or Plasma 6.3 G/DL 6.3 - 8.2 [facility] Albumin [Mass/volume] in Serum or Plasma 3.3 G/DL 3.9 - 5.0 L [facility] Globulin [Mass/volume] in Serum by calculation 3.0 GM/DL 2.4 - 3.2 [facility] A/G RATIO 1.1 0.8 - 2.0 [facility] al Calcium [Mass/volume] in Serum or Plasma 9.0 MG/DL 8.4 - 10.2 [facility] Bilirubin.total [Mass/volume] in Serum or Plasma 0.7 MG/DL 0.2 - 1.3 [facility] Alkaline phosphatase [Enzymatic activity/volume] in Serum or Plasma 168 U/L 38 - 126 H [facility] Aspartate aminotransferase [Enzymatic activity/volume] in Serum or Plasma 15 U/L 5 - 40 [facility] Alanine aminotransferase [Enzymatic activity/volume] in Seru m or Plasma 15 U/L 7 - 56 [facility] Anion gap 3 in Serum or Plasma 9.0 mmol/L 8.0 - 16.0 [facility] AGE 84 yrs [facility] al NON-AA GFR >60 mL/min [facility] ital AFR AMER GFR >60 mL/min [facility] Ho spital Male GFR In terprentation [...] >32 mL/min Normal ID Date Data Source [id number] 07/10/2019 11:56:00 AM EST [facility] Name Value Range Interpretation Code Description Data Tania rce(s) Supporting Document(s) CBC W/AUTOMATED DIFF [facility] COMPLETE BLOOD COUNT Leukocytes [#/volume] in Blood by Automated count 6.4 10^3/uL 4.2 - 1 1.0 [facility] Erythrocytes [#/volume] in Blood by Automated count 2.87 10^6/uL 4. 50 - 6.30 L [facility] Hemoglobin [Mass/volume] in Blood 8.7 g/dL 14.0 - 16.0 L [facility] Hematocrit [Volume Fraction] of Blood by Automated count 27.7 % 4 1.0 - 51.0 L [facility] Erythrocyte mean corpuscular volume [Entitic volume] by Auto mated count 96.5 fL 80.0 - 94.0 H [facility] Erythrocyte mean corpuscular hemoglobin [Entitic mass] by Automated count 30.3 pg 27.0 - 34.0 [facility] Erythrocyte mean corpuscular hemoglobin concentration [Mass/volume] by Automated count 31.4 g/dL 31.0 - 36.0 [facility] Erythrocyte distribution width [Ratio] by Automated count 15.2 % 11.5 - 14.8 H [facility] Platelets [#/volume] in Blood by Automated count 290 10^3/uL 150 - 45 0 [facility] Platelet mean volume [Entitic volume] in Blood by Automated count 10.0 fL 7.4 - 10.4 [facility] Neutrophils/100 leukocytes in Blood by Automated count 73.5 % 37. 0 - 80.0 [facility] Lymphocytes/100 leukocytes in Blood by Manual count 14.8 % 25.0 - 40.0 L [facility] Monocytes/100 leukocytes in Blood by Automated count 5.6 % 3.0 - 8.0 [facility] Eosinophils/100 leukocytes in Blood by Automated count 5.0 % 0.0 - 7.0 [facility] Basophils/100 leukocytes in Blood by Automated count 0.8 % 0.0 - 2.0 [facility] %IG 0.3 % 0.0 - 0.0 [facility] %NRBC 0.0 % 0.0 - 0.0 [facility] al Neutrophils [#/volume] in Blood by Automated count 4.71 10^3/uL 2.00 - 6.90 [facility] Lymphocytes [#/volume] in Blood by Automated count 0.95 10^3/uL 0.60 - 3.40 [facility] Monocytes [#/volume] in Blood by Automated count 0.36 10^3/uL 0.00 - 0.90 [facility] Eosinophils [#/volume] in Blood by Automated count 0.32 10^3/uL 0.00 - 0.70 [facility] Basophils [#/volume] in Blood by Automated count 0.05 10^3/uL 0.00 - 0.20 [facility] #IG 0.02 10^3/uL 0.00 - 0.10 [facility] ospital #NRBC 0.00 10^3/uL 0.00 - 0.00 [facility] ospital MANUAL DIFF NOT INDICATED [facility] RBC MORPH NOT INDICATED [facility] spital ID Date Data Source [id number] 07/03/2019 05:15:00 PM [facility] Name Value Range Interpretation Code Description Data Tania rce(s) Supporting Document(s) C reactive protein [Mass/volume] in Serum or Plasma by High sensitivity method 14.39 MG/L 1.00 - 3.00 H [facility] CDC/S HS-CRP CUT-OFF: RELATIVE RISK: <1.0 mg/L Low 1.0 - 3.0 mg/L Average >3.0 mg/L High Optimally, the average of HS-CRP results repeated two weeks apart should be used for risk assessment. ID Date Data Source [id number] 07/03/2019 05:15:00 PM [facility] Name Value Range Interpretation Code Description Data Tania rce(s) Supporting Document(s) COMPREHENSIVE METABOLIC PANEL [facility] COMPREHENSIVE METABOLIC PANEL Sodium [Moles/volume] in Serum or Plasma 137 mEq/L 134 - 153 [facility] Potassium [Moles/volume] in Serum or Plasma 4.9 mEq/L 3.6 - 5.0 [facility] Chloride [Moles/volume] in Serum or Plasma 100 mEq/L 98 - 107 [facility] Carbon dioxide, total [Moles/volume] in Serum or Plasma 23 MEQ/L 22 - 30 [facility] Glucose [Mass/volume] in Serum or Plasma 149 MG/DL 65 - 110 H [facility] BUN 18 MG/DL 7 - 21 [facility] Creatinine [Mass/volume] in Serum or Plasma 0.9 MG/DL 0.7 - 1.5 [facility] BUN/CREAT 20 8 - 27 [facility] Protein [Mass/volume] in Serum or Plasma 6.3 G/DL 6.3 - 8.2 [facility] Albumin [Mass/volume] in Serum or Plasma 3.2 G/DL 3.9 - 5.0 L [facility] Globulin [Mass/volume] in Serum by calculation 3.1 GM/DL 2.4 - 3.2 [facility] A/G RATIO 1.0 0.8 - 2.0 [facility] al Calcium [Mass/volume] in Serum or Plasma 8.8 MG/DL 8.4 - 10.2 [facility] Bilirubin.total [Mass/volume] in Serum or Plasma 0.7 MG/DL 0.2 - 1.3 [facility] Alkaline phosphatase [Enzymatic activity/volume] in Serum or Plasma 161 U/L 38 - 126 H [facility] Aspartate aminotransferase [Enzymatic activity/volume] in Serum or Plasma 18 U/L 5 - 40 [facility] Alanine aminotransferase [Enzymatic activity/volume] in Seru m or Plasma 15 U/L 7 - 56 [facility] Anion gap 3 in Serum or Plasma 14.0 mmol/L 8.0 - 16.0 [facility] AGE 84 yrs [facility] al NON-AA GFR >60 mL/min [facility] ital AFR AMER GFR >60 mL/min [facility] Ho spital Male GFR In terprentation [...] >32 mL/min Normal ID Date Data Source [id number] 07/03/2019 05:04:00 PM EST [facility] Name Value Range Interpretation Code Description Data Tania rce(s) Supporting Document(s) Erythrocyte sedimentation rate by Westergren method 60 mm/hr 0 - 20 H [facility] SED RATE REENTER 60 [facility] ID Date Data Source [id number] 07/03/2019 04:46:00 PM EST [facility] Name Value Range Interpretation Code Description Data Tania rce(s) Supporting Document(s) CBC W/AUTOMATED DIFF [facility] COMPLETE BLOOD COUNT Leukocytes [#/volume] in Blood by Automated count 8.7 10^3/uL 4.2 - 1 1.0 [facility] Erythrocytes [#/volume] in Blood by Automated count 2.62 10^6/uL 4. 50 - 6.30 L [facility] Hemoglobin [Mass/volume] in Blood 8.0 g/dL 14.0 - 16.0 L [facility] Hematocrit [Volume Fraction] of Blood by Automated count 24.9 % 4 1.0 - 51.0 L [facility] Erythrocyte mean corpuscular volume [Entitic volume] by Auto mated count 95.0 fL 80.0 - 94.0 H [facility] Erythrocyte mean corpuscular hemoglobin [Entitic mass] by Automated count 30.5 pg 27.0 - 34.0 [facility] Erythrocyte mean corpuscular hemoglobin concentration [Mass/volume] by Automated count 32.1 g/dL 31.0 - 36.0 [facility] Erythrocyte distribution width [Ratio] by Automated count 15.1 % 11.5 - 14.8 H [facility] Platelets [#/volume] in Blood by Automated count 310 10^3/uL 150 - 45 0 [facility] Platelet mean volume [Entitic volume] in Blood by Automated count 10.0 fL 7.4 - 10.4 [facility] Neutrophils/100 leukocytes in Blood by Automated count 70.7 % 37. 0 - 80.0 [facility] Lymphocytes/100 leukocytes in Blood by Manual count 18.2 % 25.0 - 40.0 L [facility] Monocytes/100 leukocytes in Blood by Automated count 6.2 % 3.0 - 8.0 [facility] Eosinophils/100 leukocytes in Blood by Automated count 4.0 % 0.0 - 7.0 [facility] Basophils/100 leukocytes in Blood by Automated count 0.7 % 0.0 - 2.0 [facility] %IG 0.2 % 0.0 - 0.0 [facility] %NRBC 0.0 % 0.0 - 0.0 [facility] al Neutrophils [#/volume] in Blood by Automated count 6.16 10^3/uL 2.00 - 6.90 [facility] Lymphocytes [#/volume] in Blood by Automated count 1.59 10^3/uL 0.60 - 3.40 [facility] Monocytes [#/volume] in Blood by Automated count 0.54 10^3/uL 0.00 - 0.90 [facility] Eosinophils [#/volume] in Blood by Automated count 0.35 10^3/uL 0.00 - 0.70 [facility] Basophils [#/volume] in Blood by Automated count 0.06 10^3/uL 0.00 - 0.20 [facility] #IG 0.02 10^3/uL 0.00 - 0.10 [facility] ospital #NRBC 0.00 10^3/uL 0.00 - 0.00 [facility] [facility] MANUAL DIFF NOT INDICATED [facility] RBC MORPH NOT INDICATED [facility] spital ID Date Data Source [id number] 06/29/2019 07:35:00 PM EST [facility] Name Value Range Interpretation Code Description Data Tania rce(s) Supporting Document(s) COMPREHENSIVE METABOLIC PANEL [facility] COMPREHENSIVE METABOLIC PANEL Sodium [Moles/volume] in Serum or Plasma 136 mEq/L 134 - 153 [facility] Potassium [Moles/volume] in Serum or Plasma 4.8 mEq/L 3.6 - 5.0 [facility] Chloride [Moles/volume] in Serum or Plasma 99 mEq/L 98 - 107 [facility] Carbon dioxide, total [Moles/volume] in Serum or Plasma 26 MEQ/L 22 - 30 [facility] Glucose [Mass/volume] in Serum or Plasma 126 MG/DL 65 - 110 H [facility] BUN 12 MG/DL 7 - 21 [facility] Creatinine [Mass/volume] in Serum or Plasma 0.9 MG/DL 0.7 - 1.5 [facility] BUN/CREAT 13 8 - 27 [facility] Protein [Mass/volume] in Serum or Plasma 6.7 G/DL 6.3 - 8.2 [facility] Albumin [Mass/volume] in Serum or Plasma 3.2 G/DL 3.9 - 5.0 L [facility] Globulin [Mass/volume] in Serum by calculation 3.5 GM/DL 2.4 - 3.2 H [facility] A/G RATIO 0.9 0.8 - 2.0 [facility] Calcium [Mass/volume] in Serum or Plasma 9.0 MG/DL 8.4 - 10.2 [facility] Bilirubin.total [Mass/volume] in Serum or Plasma <0.7 MG/DL 0.2 - 1.3 [facility] Alkaline phosphatase [Enzymatic activity/volume] in Serum or Plasma 159 U/L 38 - 126 H [facility] Aspartate aminotransferase [Enzymatic activity/volume] in Serum or Plasma 20 U/L 5 - 40 [facility] Alanine aminotransferase [Enzymatic activity/volume] in Seru m or Plasma 17 U/L 7 - 56 [facility] Anion gap 3 in Serum or Plasma 11.0 mmol/L 8.0 - 16.0 [facility] AGE 84 yrs [facility] al NON-AA GFR >60 mL/min [facility] ital AFR AMER GFR >60 mL/min [facility] Ho spital Male GFR In terprentation [...] >32 mL/min Normal ID Date Data Source [id number] 06/26/2019 05:25:00 PM EST [facility] Name Value Range Interpretation Code Description Data Tania rce(s) Supporting Document(s) C reactive protein [Mass/volume] in Serum or Plasma by High sensitivity method 67.29 MG/L 1.00 - 3.00 H [facility] CDC/S HS-CRP CUT-OFF: RELATIVE RISK: <1.0 mg/L Low 1.0 - 3.0 mg/L Average >3.0 mg/L High Optimally, the average of HS-CRP results repeated two weeks apart should be used for risk assessment. ID Date Data Source [id number] 06/26/2019 05:15:00 PM [facility] Name Value Range Interpretation Code Description Data Tania rce(s) Supporting Document(s) Erythrocyte sedimentation rate by Westergren method 50 mm/hr 0 - 20 H [facility] SED RATE REENTER 50 [facility] ID Date Data Source [id number] 06/26/2019 04:17:00 PM EST [facility] Name Value Range Interpretation Code Description Data Tania rce(s) Supporting Document(s) COMPREHENSIVE METABOLIC PANEL [facility] COMPREHENSIVE METABOLIC PANEL Sodium [Moles/volume] in Serum or Plasma 139 mEq/L 134 - 153 [facility] Potassium [Moles/volume] in Serum or Plasma 4.3 mEq/L 3.6 - 5.0 [facility] Chloride [Moles/volume] in Serum or Plasma 99 mEq/L 98 - 107 [facility] Carbon dioxide, total [Moles/volume] in Serum or Plasma 27 MEQ/L 22 - 30 [facility] Glucose [Mass/volume] in Serum or Plasma 264 MG/DL 65 - 110 [facility] BUN 11 MG/DL 7 - 21 [facility] al Creatinine [Mass/volume] in Serum or Plasma 1.0 MG/DL 0.7 - 1.5 [facility] BUN/CREAT 11 8 - 27 [facility] al Protein [Mass/volume] in Serum or Plasma 6.3 G/DL 6.3 - 8.2 [facility] Albumin [Mass/volume] in Serum or Plasma 3.2 G/DL 3.9 - 5.0 L [facility] Globulin [Mass/volume] in Serum by calculation 3.1 GM/DL 2.4 - 3.2 [facility] A/G RATIO 1.0 0.8 - 2.0 [facility] Calcium [Mass/volume] in Serum or Plasma 8.7 MG/DL 8.4 - 10.2 [facility] Bilirubin.total [Mass/volume] in Serum or Plasma <0.7 MG/DL 0.2 - 1.3 [facility] Alkaline phosphatase [Enzymatic activity/volume] in Serum or Plasma 153 U/L 38 - 126 H [facility] Aspartate aminotransferase [Enzymatic activity/volume] in Serum or Plasma 24 U/L 5 - 40 [facility] Alanine aminotransferase [Enzymatic activity/volume] in Seru m or Plasma 18 U/L 7 - 56 [facility] Anion gap 3 in Serum or Plasma 13.0 mmol/L 8.0 - 16.0 [facility] AGE 84 yrs [facility] al NON-AA GFR >60 mL/min [facility] Hosp ital AFR AMER GFR >60 mL/min [facility] Ho spital Male GFR In terprentation [...] >32 mL/min Normal ID Date Data Source [id number] 06/26/2019 03:52:00 PM EST [facility] Name Value Range Interpretation Code Description Data Tania rce(s) Supporting Document(s) CBC W/AUTOMATED DIFF [facility] COMPLETE BLOOD COUNT Leukocytes [#/volume] in Blood by Automated count 9.8 10^3/uL 4.2 - 1 1.0 [facility] Erythrocytes [#/volume] in Blood by Automated count 2.55 10^6/uL 4. 50 - 6.30 L [facility] Hemoglobin [Mass/volume] in Blood 7.8 g/dL 14.0 - 16.0 L [facility] Hematocrit [Volume Fraction] of Blood by Automated count 24.2 % 4 1.0 - 51.0 L [facility] Erythrocyte mean corpuscular volume [Entitic volume] by Auto mated count 94.9 fL 80.0 - 94.0 H [facility] Erythrocyte mean corpuscular hemoglobin [Entitic mass] by Automated count 30.6 pg 27.0 - 34.0 [facility] Erythrocyte mean corpuscular hemoglobin concentration [Mass/volume] by Automated count 32.2 g/dL 31.0 - 36.0 [facility] Erythrocyte distribution width [Ratio] by Automated count 15.4 % 11.5 - 14.8 H [facility] Platelets [#/volume] in Blood by Automated count 434 10^3/uL 150 - 45 0 [facility] Platelet mean volume [Entitic volume] in Blood by Automated count 9.6 fL 7.4 - 10.4 [facility] Neutrophils/100 leukocytes in Blood by Automated count 79.3 % 37. 0 - 80.0 [facility] Lymphocytes/100 leukocytes in Blood by Manual count 13.3 % 25.0 - 40.0 L [facility] Monocytes/100 leukocytes in Blood by Automated count 4.8 % 3.0 - 8.0 [facility] Eosinophils/100 leukocytes in Blood by Automated count 1.9 % 0.0 - 7.0 [facility] Basophils/100 leukocytes in Blood by Automated count 0.4 % 0.0 - 2.0 [facility] %IG 0.3 % 0.0 - [facility].0 [facility] % 0.0 - 0.0 [facility] al Neutrophils [#/volume] in Blood by Automated count 7.79 10^3/uL 2.00 - 6.90 H [facility] Lymphocytes [#/volume] in Blood by Automated count 1.31 10^3/uL 0.60 - 3.40 [facility] Monocytes [#/volume] in Blood by Automated count 0.47 10^3/uL 0.00 - 0.90 [facility] Eosinophils [#/volume] in Blood by Automated count 0.19 10^3/uL 0.00 - 0.70 [facility] Basophils [#/volume] in Blood by Automated count 0.04 10^3/uL 0.00 - 0.20 [facility] #IG 0.03 10^3/uL 0.00 - 0.10 [facility] ospital #NRBC 0.00 10^3/uL 0.00 - 0.00 [facility] MANUAL DIFF NOT INDICATED [facility] RBC MORPH NOT INDICATED [facility] ID Date Data Source [id number] 06/26/2019 08:43:26 AM EST [facility] Name Value Range Interpretation Code Description Data Tania rce(s) Supporting Document(s) Progress Note [facility] EYYRFu5mJdTXUcCe26/BDVtaHGCwz0QwRXzkTXn4BIykDPGdW2QdPME7gY4cFTC9ZFfOCkSgZJmcYvXj lbm GwOlrQKmRpZOErAlwPEyLmDDxxUufvxZCwYV6VeNW8GZQpL03fUMFlSUSsS8LqZEFgYSt+Zk1HXBEyvF PuZF6ZTsrD6S0Gg8gQAT8VmK/RMMUGS4pS3asSESL55T91X1e4oS0fX30HsDE4NfiUGXvP/e5fKpwXIK +Xp7BWNEb6K7AUf44L6/G9MMRCrYg//kPaKnS7yqh6 f/9nklkzPDd//yKBJUwmjcIJh4mUbbE9pTqOE3q/XUp3O22msNHoIEC1Yj9G68ufVw3N5ebeVhUu2TC0 08bJi1lcsd3yP63OqZYmtw1fJ+XOTkvKxy9Rd+MyKA74XPFzeGtjyKWUEdaO7eWH6tSuIJzfzij9zUAo sgbkYUQ5g7kw0n2Nr2KemJ23yHO4YXGCX0hi9JTK49 bh1eIcutBE+14c+Parker/q0tCpBRP/m8SUuk8GlSiJ2wfIuvw97MXcmkk5OwB05FqtJH4J7oJQIMm6Q+zT [file] ID Date Data Source [id number] 06/22/2019 07:01:17 AM [facility] Name Value Range Interpretation Code Description Data Tania rce(s) Supporting Document(s) Operative Note [facility] PGCXRy9wIhWAJjFm74/WBJhuQXJxw5ZeLYedTIk5CTawNEQiV6LaQUC6wF9nPZC1EElOYzKgIMyaCqC2 lbm [file] PdpaI1yaXqNGjvEiA8VH0ULHTBR1WKHx== ID Date Data Source [id number] 06/19/2019 05:39:00 PM [facility] Name Value Range Interpretation Code Description Data Tania rce(s) Supporting Document(s) Erythrocyte sedimentation rate by Westergren method 50 mm/hr 0 - 20 H [facility] SED RATE REENTER 50 [facility] ID Date Data Source [id number] 06/19/2019 04:56:00 PM [facility] Name Value Range Interpretation Code Description Data Tania rce(s) Supporting Document(s) C reactive protein [Mass/volume] in Serum or Plasma by High sensitivity method 135.58 MG/L 1.00 - 3.00 H [facility]/S HS-CRP CUT-OFF: RELATIVE RISK: <1.0 mg/L Low 1.0 - 3.0 mg/L Average >3.0 mg/L High Optimally, the average of HS-CRP results repeated two weeks apart should be used for risk assessment. ID Date Data Source [id number] 06/19/2019 04:56:00 PM EST [facility] Name Value Range Interpretation Code Description Data Tania rce(s) Supporting Document(s) CBC W/AUTOMATED DIFF [facility] COMPLETE BLOOD COUNT Leukocytes [#/volume] in Blood by Automated count 11.3 10^3/uL 4.2 - 11.0 H [facility] Erythrocytes [#/volume] in Blood by Automated count 2.69 10^6/uL 4. 50 - 6.30 L [facility] Hemoglobin [Mass/volume] in Blood 8.0 g/dL 14.0 - 16.0 L [facility] Hematocrit [Volume Fraction] of Blood by Automated count 25.1 % 4 1.0 - 51.0 L [facility] Erythrocyte mean corpuscular volume [Entitic volume] by Auto mated count 93.3 fL 80.0 - 94.0 [facility] Erythrocyte mean corpuscular hemoglobin [Entitic mass] by Automated count 29.7 pg 27.0 - 34.0 [facility] Erythrocyte mean corpuscular hemoglobin concentration [Mass/volume] by Automated count 31.9 g/dL 31.0 - 36.0 [facility] Erythrocyte distribution width [Ratio] by Automated count 15.0 % 11.5 - 14.8 H [facility] Platelets [#/volume] in Blood by Automated count 439 10^3/uL 150 - 45 0 [facility] Platelet mean volume [Entitic volume] in Blood by Automated count 9.5 fL 7.4 - 10.4 [facility] Neutrophils/100 leukocytes in Blood by Automated count 79.7 % 37. 0 - 80.0 [facility] Lymphocytes/100 leukocytes in Blood by Manual count 13.6 % 25.0 - 40.0 L [facility] Monocytes/100 leukocytes in Blood by Automated count 5.7 % 3.0 - 8.0 [facility] Eosinophils/100 leukocytes in Blood by Automated count 0.4 % 0.0 - 7.0 [facility] Basophils/100 leukocytes in Blood by Automated count 0.2 % 0.0 - 2.0 [facility] %IG 0.4 % 0.0 - 0.0 H [facility] al %NRBC 0.0 % 0.0 - 0.0 [facility] al Neutrophils [#/volume] in Blood by Automated count 9.02 10^3/uL 2.00 - 6.90 H [facility] Lymphocytes [#/volume] in Blood by Automated count 1.54 10^3/uL 0.60 - 3.40 [facility] Monocytes [#/volume] in Blood by Automated count 0.64 10^3/uL 0.00 - 0.90 [facility] Eosinophils [#/volume] in Blood by Automated count 0.05 10^3/uL 0.00 - 0.70 [facility] Basophils [#/volume] in Blood by Automated count 0.02 10^3/uL 0.00 - 0.20 [facility] #IG 0.04 10^3/uL 0.00 - 0.10 [facility] ospital #NRBC 0.00 10^3/uL 0.00 - 0.00 [facility] ospital MANUAL DIFF NOT INDICATED [facility] RBC MORPH NOT INDICATED [facility] spital ID Date Data Source [id number] 06/19/2019 04:40:00 PM EST [facility] Name Value Range Interpretation Code Description Data Tania rce(s) Supporting Document(s) COMPREHENSIVE METABOLIC PANEL [facility] COMPREHENSIVE METABOLIC PANEL Sodium [Moles/volume] in Serum or Plasma 133 mEq/L 134 - 153 L [facility] Potassium [Moles/volume] in Serum or Plasma 5.0 mEq/L 3.6 - 5.0 [facility] Chloride [Moles/volume] in Serum or Plasma 99 mEq/L 98 - 107 [facility] Carbon dioxide, total [Moles/volume] in Serum or Plasma 20 MEQ/L 22 - 30 L [facility] Glucose [Mass/volume] in Serum or Plasma 271 MG/DL 65 - 110 H [facility] BUN 27 MG/DL 7 - 21 H [facility] al Creatinine [Mass/volume] in Serum or Plasma 1.2 MG/DL 0.7 - 1.5 [facility] BUN/CREAT 23 8 - 27 [facility] Protein [Mass/volume] in Serum or Plasma 5.7 G/DL 6.3 - 8.2 L [facility] Albumin [Mass/volume] in Serum or Plasma 2.9 G/DL 3.9 - 5.0 L [facility] Globulin [Mass/volume] in Serum by calculation 2.8 GM/DL 2.4 - 3.2 [facility] A/G RATIO 1.0 0.8 - 2.0 [facility] Calcium [Mass/volume] in Serum or Plasma 8.6 MG/DL 8.4 - 10.2 [facility] Bilirubin.total [Mass/volume] in Serum or Plasma <0.7 MG/DL 0.2 - 1.3 [facility] Alkaline phosphatase [Enzymatic activity/volume] in Serum or Plasma 119 U/L 38 - 126 [facility] Aspartate aminotransferase [Enzymatic activity/volume] in Serum or Plasma 19 U/L 5 - 40 [facility] Alanine aminotransferase [Enzymatic activity/volume] in Seru m or Plasma 14 U/L 7 - 56 [facility] Anion gap 3 in Serum or Plasma 14.0 mmol/L 8.0 - 16.0 [facility] AGE 84 yrs [facility] al NON-AA GFR >60 mL/min [facility] ital AFR AMER GFR >60 mL/min [facility] Ho spital Male GFR In terprentation [...] >32 mL/min Normal ID Date Data Source [id number] 06/19/2019 04:38:00 PM EST [facility] Name Value Range Interpretation Code Description Data Tania rce(s) Supporting Document(s) Vancomycin [Mass/volume] in Serum or Plasma --trough 17.3 ug/mL [facility] TROUG H First trough is drawn 30 minutes prior to fourth dose. If patient is not hemodynamically stable, a trough is obtained as deemed medically necessary. If patient is hemodynamically stable, a trough should be drawn once a week. The trough is drawn 30 minutes prior to the next dose. Mild Infections Trough 10-15 mg/L Severe Infections Trough 15-20 mg/L [employer] Infections Trough 20-25 mg/L *Severe Infections - Endocarditis, Osteomyelitis, Hospital Acquired Pneumonia, Sepsis ID Date Data Source [id number] 06/18/2019 12:41:02 PM [facility] Name Value Range Interpretation Code Description Data Tania rce(s) Supporting Document(s) History and Physical [facility] FYUSGn1lImBTLxKs11/RABuaGQMzc1NeTZrzWUi8OFuwPFMpA5RkYCW9pV1nNHK0IYuCKvKgRXbwKtCc m [file] ICAgICAgICAgICAgICAgICAgICAgICAgICAgICAgICAgICAgICAgICAgICAgICAgICAgICAgICAgICAg ICAgICAgICAgICANCiAgICAgICAgICAgICAgICAgIC AgICAgICAgICAgICAgICAgICAgICAgICAgICAgICAgICAgICAgICAgICAgICAgICAgICAgICAgICAgIC AgICAgICAgICAgICAgICAgICAgICANCiAgICAgICAgICAgICAgICAgICAgICAgICAgICAgICAgICAgIC AgICAgICAgICAgICAgICAgICAgICAgICAgICAgICAg ICAgICAgICAgICAgICAgICAgICAgICAgICAgICAgICANCiAgICAgICAgICAgICAgICAgICAgICAgICAg ICAgICAgICAgICAgICAgICAgICAgICAgICAgICAgICAgICAgICAgICAgICAgICAgICAgICAgICAgICAg ICAgICAgICAgICAgICANCiAgICAgICAgICAgICAgIC AgICAgICAgICAgICAgICAgICAgICAgICAgICAgICAgICAgICAgICAgICAgICAgICAgICAgICAgICAgIC AgICAgICAgICAgICAgICAgICAgICAgICANCiAgICAgICAgICAgICAgICAgICAgICAgICAgICAgICAgIC AgICAgICAgICAgICAgICAgICAgICAgICAgICAgICAg ICAgICAgICAgICAgICAgICAgICAgICAgICAgICAgICAgICANCiAgICAgICAgICAgICAgICAgICAgICAg ICAgICAgICAgICAgICAgICAgICAgICAgICAgICAgICAgICAgICAgICAgICAgICAgICAgICAgICAgICAg ICAgICAgICAgICAgICAgICANCiAgICAgICAgICAgIC AgICAgICAgICAgICAgICAgICAgICAgICAgICAgICAgICAgICAgICAgICAgICAgICAgICAgICAgICAgIC AgICAgICAgICAgICAgICAgICAgICAgICAgICANCiAgICAgICAgICAgICAgICAgICAgICAgICAgICAgIC AgICAgICAgICAgICAgICAgICAgICAgICAgICAgICAg ICAgICAgICAgICAgICAgICAgICAgICAgICAgICAgICAgICAgICANCiAgICAgICAgICAgICAgICAgICAg ICAgICAgICAgICAgICAgICAgICAgICAgICAgICAgICAgICAgICAgICAgICAgICAgICAgICAgICAgICAg ICAgICAgICAgICAgICAgICAgICANCjw/vKSvK5ggsQ NzwuZ6Z9wgLd0TQh9DLI5lr8SxPXUbHExgffReWuxGYrLcBAFeOprCQzr7ICmcJM1EtFZyT3KqK1RiAN pgDQ5MQKIdKVMraOZxJIFdQQUiOgN9NIIbLQlsAN8PkEZtCDmnRLMvPJDuEhUkEFVhIEMwXCSjZHDyHM MZRJ5WHdXzV7IiqP21ERRWOk1+DQplbmRvYmoNCjMx QEKsa1JjHWq6UF9XGPVoYloxp6BhKtZwWRFGFMgdUP5EYPE8EHJhBLHfFz7YPXHeI181tkGjRW9NWs4C VxXfHJ5vhp6PKmIgDGSiZarUAfo2CQeiMO8OiXIbQDhGYqNrLnbzP7CoIJKNjGY7RNFUPjNJHZN3KWWf FbB9TeZoTSjgALZ5DNIwHC1uIGlxLX1XJSM1NEtaLQ LqXAWnK2fYSkQmKIMrJdXjhRfnZR3VIhCqP1ZexrYueIJqDZYsTDGPZx2+DQplbmRvYmoNCjMzIDAgb2 ZkMAh7SP8XXWEkAVkoHC6SINIhcX5dLMlbNB1HUzOoAYKlROCQEwWiF70rkCVxJGq1J6WxUiQiPDZuLq lsZXMgPDwvTmFtZXMgWyBdDQogID4+ID4+TAvdJJ3N CBotqvRcSRWnWp7NKSSxUJCyWL6zETXcCMMbA0H6oHeeLZJDBdJeU8klxkkzFN9nKAHjU962iYbcznCo MYCzIBEfWz0WDTJvHQL8RWYjwHEnBwQcOOXQZYuuYS3JjEGkRBE2rJ7gSIklTCRyQJZoG0gBJsNfxYkc IZ06yAndvwTgqSSfSBb+Jk9XXF1gf1YnAUf0bdTrAK mgWCK3RPzzSZOmJYCbDBRqTFQ1KVY8YQHLPtKyPTDlCEEqRRrzTTBlJTLsdh8TCWEzMKOnUVE8ZYClDK TgDYJoEVffDMHiTTEiWXz3FLMyYDRtLB8LNdGqLXRoYHRwRHviWXOwZQSuow9CAHUzAFXwSlY6IjEgSF BfBTLmKUyxSKUcKJVsUEqlAICmWSGcQV6CXqVlJBUp ZBqmATFpRJZiLIQahc1BJDJmLBSbGeG1OSCuFLYuZJIuVRdyAFTpMPViWRzmMWEsGKMzDD6SPzEiMFHt UBA2SjZaYAChVWWfat7FSXEvTTUsFoL9QVDhIHPwUASiXXmvJFUtHWDnZBseQUYhCHHoWD8XGeKrYJRz XVV9CRQiALKjQLKssi1DUGQqIQWwTjo2PnKuEBBcLC ZiNKsmXGPdSDSsQBMhISIjWVLeCK3JBsXiGFXyYEZ1TJuqXBKjEOFhib9MRBAiTGYkEJH1GASsGAWnVJ DjKAckNXRkOVC2Yxh5BOCwIMGcEN2GWoCmKBTkOYVbYnzvUOEnATEoai5RPRKnSEErUoNzEgVfCUFkKI LgPGxsTBFeWUS0HpO4PJWtZSPpWP5SCcClHYMvAaqz GLMsTHNuGAXfle2ZDGCkUMPyIWImFeIqKDApVRHbPLemKSLaXFX0ITYbDHIoVIRgDJ4BDuVuLISyVqm6 KlUfNRUaVMRibe2ZEUFzMTHtWSfvXjUzHEKjLBSaRZdhVEUoIBI6VPLbCLMuUNVyIN3NYfJyDMVpHrMm SXhkOAMsLLLnym1OWHDaWLIiVMFmWoKjZEVyEJWlEA wuIBOdSINnAqO4WOFeMXDkRL6YIfFkRQKaMoAsEAKwRMUxJYHysx0ICYTxFLXnYeP0GnMoSZYsJKUyDJ ziLSWdARQxLiCxZGZqCYAwMY3KYkIqHWbzTICEFod7FIxsN3y2GBFyKR0GL7Fie2QcVvXlYHIPCWcrRS 3kevSkPMGhZi6HD5xVOzz1IJrcPgAmFJD5N2VhK1E0 MmbvAXBcSdFlZIO7JyBjYw3dLAx9ZHL0UQS4XVKkQ0ChWbvaRDY7N7UaEjS4RnBcRZArPnQzCH7PTf0T MfJ9VZR9eSXoKl3NMbX9QakVDcZnLU3DYWc= ID Date Data Source [id number] 06/15/2019 02:59:13 PM EST [facility] Name Value Range Interpretation Code Description Data Tania e(s) Supporting Document(s) Discharge Summary [facility] YUEXRd1jLqDEUeTx23/UBStmLPApg5FnOMjqLGd0UDpwZSHaG1RnVII4nG8bTNI6UJpGFuVrYJpqMrD9 lbm VjEbwGRzSdMINbRluKCvAzBEevHsyatIYzYZ7UnJD3VOVvD11iJACvSIZvY9LqCTE2EPZ+Tm5VLHZozP AaEU7FEygI0A8sp7iEOB8r3N+waNEgAWKZy+Wj9ZdatqLFxs6oTnFDmUaXnz05iwLCkr3tG3JhOa1TCy SgbTYHWLOqCXhWgwQ773eDPPHI/x3hJzO8isWD0O/1 DLbbYM8AC/5E0Snek7aw/shuIg+4jnbC/GNkc1H0I6xtSoM/jIVMDYcsZMzbrF25uZp9dGbfCM16YUe/ E6gXDz3c7UFWUE+ZZeqKULfD7seARrwXJTvauN4AqdCRoeXf8YSelAlIj/zjrBhiqM7pa4ZQWg4urZi9 mgmS5o1HIUwF0hUvUcWcCxZkYpCA7dkcZhp3PFfzMv EGVYoYVx2wlItVl2vwWWWCRKyL5Xx9oUjNmhRO+753cY8f3qGaPlepz2loy1HPVfzyYO3QkX4Kbnh6+B SfyivF6A68EqncPBtgcAXa6uL/Vu9Kvcl9hXdgoP4mzeZB0HU3tuGov+ptvl7Um1JtWrWLQAT++7NMzS BIheeUjpEzdjyaxTZNLaPhqscZcXvTjdKJVirdnMXf [file] [facility]/qZnhoN6jQscGdEC6Orpqj2/4jwGB0R+ElplqzCGs4oX+fpauagyGvSzd4nhseCGlpeA6Ja0iRk+ [file] AgICAgICAgICAgICAgICAgICAgICAgICAgICAgICAgICAgICAgICAgICAgICAgICAgICAgICAgICAgIC AgICAgICANCiAgICAgICAgICAgICAgICAgICAgICAg ICAgICAgICAgICAgICAgICAgICAgICAgICAgICAgICAgICAgICAgICAgICAgICAgICAgICAgICAgICAg ICAgICAgICAgICAgICAgICANCiAgICAgICAgICAgICAgICAgICAgICAgICAgICAgICAgICAgICAgICAg ICAgICAgICAgICAgICAgICAgICAgICAgICAgICAgIC AgICAgICAgICAgICAgICAgICAgICAgICAgICANCiAgICAgICAgICAgICAgICAgICAgICAgICAgICAgIC AgICAgICAgICAgICAgICAgICAgICAgICAgICAgICAgICAgICAgICAgICAgICAgICAgICAgICAgICAgIC AgICAgICAgICANCiAgICAgICAgICAgICAgICAgICAg ICAgICAgICAgICAgICAgICAgICAgICAgICAgICAgICAgICAgICAgICAgICAgICAgICAgICAgICAgICAg ICAgICAgICAgICAgICAgICAgICANCiAgICAgICAgICAgICAgICAgICAgICAgICAgICAgICAgICAgICAg ICAgICAgICAgICAgICAgICAgICAgICAgICAgICAgIC AgICAgICAgICAgICAgICAgICAgICAgICAgICAgICANCiAgICAgICAgICAgICAgICAgICAgICAgICAgIC AgICAgICAgICAgICAgICAgICAgICAgICAgICAgICAgICAgICAgICAgICAgICAgICAgICAgICAgICAgIC AgICAgICAgICAgICANCiAgICAgICAgICAgICAgICAg ICAgICAgICAgICAgICAgICAgICAgICAgICAgICAgICAgICAgICAgICAgICAgICAgICAgICAgICAgICAg ICAgICAgICAgICAgICAgICAgICAgICANCiAgICAgICAgICAgICAgICAgICAgICAgICAgICAgICAgICAg ICAgICAgICAgICAgICAgICAgICAgICAgICAgICAgIC AgICAgICAgICAgICAgICAgICAgICAgICAgICAgICAgICANCiAgICAgICAgICAgICAgICAgICAgICAgIC AgICAgICAgICAgICAgICAgICAgICAgICAgICAgICAgICAgICAgICAgICAgICAgICAgICAgICAgICAgIC AgICAgICAgICAgICAgICANCjw/uZEwR2iegSXvshE6 B5iaEl3WYi2GAZ0ze1MsKQFoAHmiylTaGrqYCfFsZQNvKpgNBrn2EQlnUP9QnVEfW1OlG9KfWLwmNO1W IGDiIOUknLUvDIDbKJHeWfH7XMHkVDnaYT6PqNAwQMwaKLEuOLRqPeCtDQMtMPIyVJGnRKOpYFBPCPLz TMIuReUqZMwrSQ7Tu9XisPX8GYz+Oi5SLF5th3YuSV wqXBBpCM3zcj8ISNjLPyVqO0AyucX9SXM9CKXoQk9SAORyALPwaUSnJuPmGIFHYyAvP5ErwM69UEVUHy 4+ITmotpIfSahGEvF0ZYAii6LbVRw1JE8IYHJnKJr3hJNrENnuY3exwgbuVUE3hV5kftrgJhtjIbNmFL HsB4OdsEMjEMQALDQzvSMqZo0cWO8pWVI7CBNxNnA0 AFQFQY2DWYKdZBBwvTOdKSFmZEDKHD4GHEezVSC4ZZVtbqOpyAPuPTfzLE1RCCGqhrIoRyInCVORIMb+ Fg0UTH3yd4YvXMqlHxKjFE4qig9YSWjGAqXtY2D1gFJfT1I6BLqsWg6KDHWdMWLuJyJoFMHWXDvhFZ6K YP0dqjI8MG9MzSLpVRIpYMZktQBzTPx3M76zkADkGX eiUS5CFKP+Sammy+Wp4AXIHqWBVjXDOlGzGoHEWVYnWkO9MuC5RDc0LwM3ElSX72sBhlmeQtWSwgHW3ZGB 0eCZAjBSGKYM7QbWTsvY5bndVrCLOxFGIVJpPbU52moBKrSWAyHUS8AHRwQo4FNRHxZ4TbdlAgdZgkyp BcYYLzPLKYDQ9XCIcfwtWdwMIuqKxjMP38dPhnAM2R Bp3HPeDiSW3ixc8NlABaTx0CFJLhAG9NFLJpQBMnJNCrVHY6EZSxTfIyUCviYVDeLLXtCRT4ONOhTZEp HX6SCgLkVMStVbJkTXibQNXhJJYmjr4BHMAyLYHcZlQ6MrYuQMBrFAOjTJxmCONcGZCgAGS0KZGlXVRb TW1GZvOxSLOySXZ6HlXwDHCbPMGaug7XXPTjVLInTQ MdFjLmPJVzBLXcYLclWGErFJK6Nsb0UQPyALAtVN8OJiTdZZZxOVn4YbgjLGFbPTTlqe6BJSFvUAUcRa G6GIPrHBYwKRVeGMggUQXqMRHeJXldAJNfNNAiMN4LLzNtRJMsTQZ9MJZzRHIvMKRirr5YPQGoOOQjCA tpYgJsNGPdBBUgOFefEGUlZTJ2QVN8PEBuKLTqIL1T OpXlOIBeMOooFXFsGUQsDRHesv6MFPFhWYCvULPqKWZaRLTnCJJzHZhzQYItRGY3WTH5BJKfPWKpCS8F YlTvSVDuDSe2UFYvWVKvSWQpxd5VYKCkBNOoPTO8QEUvGMJsGBVpDPfbPILlYOC1WlMsQSJeJUZcYV8L RcCaCBFoCCv2OyxwYGXiGRFzgb0ICWSfYXLaSJc9XY GjMKKjEAPfHDemSTEbZODeMDEeNFPuWQApVY7RBpOnLOSeFhIoNGAyGCNkSPTqez7ECRCfNCZxWLcoQh YuKRJpNWEuTZdaYSMrIFZdCMsaHNFzSOMzNG3WSlYaUGJyNnLfVAHsGYEoZVVhdf8LPBSoESSzOxJqOv NzFGMxJVJbNAm0atNcjIHhKLx5DZ9IS0PvbsFqZupD Vl3Fb112WFX3ZUQtOw2MS9pkKc2hXCRbKXGHDk1VXGe7MAu6XXD3XuR5SApiDAUwF6DjZRa0U9W9EPdx RKj6APr+CMygXgudBeS4WmJrFAC4TnEqWQO8GBRxSKNqTPD8OMA7Rv9tASQCKu0+DQpzdGFydHhyZWYN SjMmNoP9ZNjyHOOKGj9P ID Date Data Source [id number] 06/15/2019 11:42:34 AM [facility] Name Value Range Interpretation Code Description Data Tania rce(s) Supporting Document(s) Glucose [Mass/volume] in Capillary blood by Glucometer 106 mg/dL 70- 140 [facility] ID Date Data Source [id number] 06/15/2019 11:10:43 AM [facility] Value Range Interpretation Code Description Data Tania rce(s) Supporting Document(s) Leukocytes [#/volume] in Blood by Automated count 7.7 10*3/uL 4-10 [facility] Erythrocytes [#/volume] in Blood by Automated count 2.38 10*6/uL 4.6- 6.1 L [facility] Hemoglobin [Mass/volume] in Blood 7.5 g/dL 13.5-18 L [facility] Hematocrit [Volume Fraction] of Blood by Automated count 22.5 % 4 1-53 [facility] Erythrocyte mean corpuscular volume [Entitic volume] by Auto mated count 94.7 fL 80-96 [facility] Erythrocyte mean corpuscular hemoglobin [Entitic mass] by Automated count 31.5 pg 27-33 [facility] Erythrocyte mean corpuscular hemoglobin concentration [Mass/volume] by Automated count 33.3 g/dL 32.0-36.0 [facility] width [Ratio] by Automated count 16.1 % 11.5-14.5 [facility] Platelets [#/volume] in Blood by Automated count 285 10*3/uL 150-400 [facility] ID Date Data Source [id number] 06/15/2019 11:51:42 AM [facility] Value Range Interpretation Code Description Data Tania rce(s) Supporting Document(s) Ferritin [Mass/volume] in Serum or Plasma 171 ng/ml 30-400 [facility] ID Date Data Source [id number] 06/15/2019 03:28:23 PM [facility] Value Range Interpretation Code Description Data Tania rce(s) Supporting Document(s) Iron [Mass/volume] in Serum or Plasma 19 ug/dl 59-158 [facility] Transferrin [Mass/volume] in Serum or Plasma 116 mg/dL 200-360 [facility] Iron binding capacity [Mass/volume] in Serum or Plasma 161 ug/dl 228 -428 [facility] Iron saturation [Mass Fraction] in Serum or Plasma 12.0 % 20-55 [facility] ID Date Data Source [id number] 06/15/2019 11:35:13 AM [facility] Name Value Range Interpretation Code Description Data Tania rce(s) Supporting Document(s) Vancomycin [Mass/volume] in Serum or Plasma --trough 13.1 ug/mL 10.0- 20.0 [facility] ID Date Data Source [id number] 06/15/2019 08:42:26 AM [facility] XR SPINE LUMBAR 2-3 VIEWS [id number] RES ULTInterpreted by:Roderick Dickerson MDORDERING CLINICAL INFORMATION: [...] rce(s) Supporting Document(s) ID Date Data Source [id number] 06/15/2019 08:06:03 AM [facility] Name Value Range Interpretation Code Description Data Tania rce(s) Supporting Document(s) Glucose [Mass/volume] in Capillary blood by Glucometer 149 mg/dL 70- 140 [facility] ID Date Data Source [id number] 06/15/2019 05:30:47 AM EST [facility] Name Value Range Interpretation Code Description Data Tania rce(s) Supporting Document(s) Leukocytes [#/volume] in Blood by Automated count 7.7 10*3/uL 4-10 [facility] Erythrocytes [#/volume] in Blood by Automated count 2.32 10*6/uL 4.6- 6.1 [facility] Hemoglobin [Mass/volume] in Blood 7.2 g/dL 13.5-18 [facility] Hematocrit [Volume Fraction] of Blood by Automated count 21.8 % 4 1-53 [facility] Erythrocyte mean corpuscular volume [Entitic volume] by Auto mated count 94.2 fL 80-96 [facility] Erythrocyte mean corpuscular hemoglobin [Entitic mass] by Automated count 30.9 pg 27-33 [facility] Erythrocyte mean corpuscular hemoglobin concentration [Mass/volume] by Automated count 32.8 g/dL 32.0-36.0 [facility] width [Ratio] by Automated count 16.4 % 11.5-14.5 [facility] Platelets [#/volume] in Blood by Automated count 266 10*3/uL 150-400 [facility] Differential cell count method - Blood [facility] Neutrophils/100 leukocytes in Blood by Automated count 75 % [facility] Lymphocytes/100 leukocytes in Blood by Automated count 13 % [facility] Monocytes/100 leukocytes in Blood by Automated count 8 % [facility] Eosinophils/100 leukocytes in Blood by Automated count 4 % [facility] Basophils/100 leukocytes in Blood by Automated count 0 % [facility] Neutrophils [#/volume] in Blood by Automated count 5.81 10*3/uL 1.8-7 .0 [facility] Lymphocytes [#/volume] in Blood by Automated count 0.98 10*3/uL 1.2-4 .0 [facility] Monocytes [#/volume] in Blood by Automated count 0.61 10*3/uL 0-0.8 [facility] Eosinophils [#/volume] in Blood by Automated count 0.30 10*3/uL 0-0.5 [facility] Basophils [#/volume] in Blood by Automated count 0.03 10*3/uL 0-0.2 [facility] Nucleated erythrocytes/100 leukocytes [Ratio] in Blood by Automated count 0 /100{WBCs} 0-0 [facility] ID Date Data Source [id number] 06/15/2019 05:50:31 AM [facility] Name Value Range Interpretation Code Description Data Tania rce(s) Supporting Document(s) Bicarbonate [Moles/volume] in Serum 23 mmol/L 22-29 [facility] Chloride [Moles/volume] in Serum or Plasma 105 mmol/L 98-107 [facility] Creatinine [Mass/volume] in Serum or Plasma 0.99 mg/dL 0.70-1.20 [facility] Glucose [Mass/volume] in Serum or Plasma 183 mg/dL 70-140 [facility] Potassium [Moles/volume] in Serum or Plasma 3.6 mmol/L 3.4-5.1 [facility] Sodium [Moles/volume] in Serum or Plasma 138 mmol/L 136-145 [facility] Urea nitrogen [Mass/volume] in Serum or Plasma 17 mg/dL 8-23 [facility] Anion gap 3 in Serum or Plasma 10 mmol/L 8-15 [facility] Osmolality of Serum or Plasma by calculation 292 mosm/kg 275-300 [facility] Creatinine/Urea nitrogen [Mass Ratio] in Serum or Plasma 17 [facility] Calcium [Mass/volume] in Serum or Plasma 8.0 mg/dL 8.8-10.2 [facility] Glomerular filtration rate/1.73 sq M pre dicted among non-blacks [Volume Rate/Area] in Serum or Plasma by Creatinine-based formula (MDRD) >6 0 [facility] Glomerular filtration rate/1.73 sq M pre dicted among blacks [Volume Rate/Area] in Serum or Plasma by Creatinine-based formula (MDRD) >60 [facility] ID Date Data Source [id number] 06/15/2019 05:50:31 AM [facility] Name Value Range Interpretation Code Description Data Tania rce(s) Supporting Document(s) Magnesium [Mass/volume] in Serum or Plasma 1.9 mg/dL 1.6-2.4 [facility] ID Date Data Source [id number] 06/15/2019 05:50:31 AM [facility] Name Value Range Interpretation Code Description Data Tania rce(s) Supporting Document(s) Phosphate [Mass/volume] in Serum or Plasma 2.9 mg/dL 2.5-4.5 [facility] ID Date Data Source [id number] 06/14/2019 08:48:50 PM [facility] Value Range Interpretation Code Description Data Tania rce(s) Supporting Document(s) Glucose [Mass/volume] in Capillary blood by Glucometer 234 mg/dL 70- 140 [facility] ID Date Data Source [id number] 06/14/2019 04:39:20 PM [facility] Value Range Interpretation Code Description Data Tania rce(s) Supporting Document(s) Glucose [Mass/volume] in Capillary blood by Glucometer 81 mg/dL 70- 140 [facility] ID Date Data Source [id number] 06/14/2019 11:44:53 AM [facility] Value Range Interpretation Code Description Data Tania rce(s) Supporting Document(s) Glucose [Mass/volume] in Capillary blood by Glucometer 135 mg/dL 70- 140 [facility] ID Date Data Source [id number] 06/14/2019 09:47:45 AM [facility] Value Range Interpretation Code Description Data Tania rce(s) Supporting Document(s) Leukocytes [#/volume] in Blood by Automated count 9.5 10*3/uL 4-10 [facility] Erythrocytes [#/volume] in Blood by Automated count 2.53 10*6/uL 4.6- 6.1 [facility] Hemoglobin [Mass/volume] in Blood 8.0 g/dL 13.5-18 [facility] Hematocrit [Volume Fraction] of Blood by Automated count 23.9 % 4 1-53 [facility] Erythrocyte mean corpuscular volume [Entitic volume] by Auto mated count 94.5 fL 80-96 [facility] Erythrocyte mean corpuscular hemoglobin [Entitic mass] by Automated count 31.5 pg 27-33 [facility] Erythrocyte mean corpuscular hemoglobin concentration [Mass/volume] by Automated count 33.4 g/dL 32.0-36.0 [facility] distribution width [Ratio] by Automated count 16.5 % 11.5-14.5 [facility] Platelets [#/volume] in Blood by Automated count 280 10*3/uL 150-400 [facility] ID Date Data Source [id number] 06/14/2019 10:11:42 AM [facility] Value Range Interpretation Code Description Data Tania rce(s) Supporting Document(s) Bicarbonate [Moles/volume] in Serum 22 mmol/L 22-29 [facility] Chloride [Moles/volume] in Serum or Plasma 103 mmol/L 98-107 [facility] Creatinine [Mass/volume] in Serum or Plasma 1.02 mg/dL 0.70-1.20 [facility] Glucose [Mass/volume] in Serum or Plasma 157 mg/dL 70-140 [facility] Potassium [Moles/volume] in Serum or Plasma 3.8 mmol/L 3.4-5.1 [facility] Sodium [Moles/volume] in Serum or Plasma 134 mmol/L 136-145 [facility] Urea nitrogen [Mass/volume] in Serum or Plasma 16 mg/dL 8-23 [facility] Anion gap 3 in Serum or Plasma 10 mmol/L 8-15 [facility] Osmolality of Serum or Plasma by calculation 283 mosm/kg 275-300 [facility] Creatinine/Urea nitrogen [Mass Ratio] in Serum or Plasma 15 [facility] Calcium [Mass/volume] in Serum or Plasma 8.0 mg/dL 8.8-10.2 [facility] Glomerular filtration rate/1.73 sq M pre dicted among non-blacks [Volume Rate/Area] in Serum or Plasma by Creatinine-based formula (MDRD) >6 0 [facility] Glomerular filtration rate/1.73 sq M pre dicted among blacks [Volume Rate/Area] in Serum or Plasma by Creatinine-based formula (MDRD) >60 [facility] ID Date Data Source [id number] 06/14/2019 10:11:42 AM [facility] Value Range Interpretation Code Description Data Tania rce(s) Supporting Document(s) Magnesium [Mass/volume] in Serum or Plasma 1.6 mg/dL 1.6-2.4 [facility] ID Date Data Source [id number] 06/14/2019 10:11:42 AM [facility] Value Range Interpretation Code Description Data Tania rce(s) Supporting Document(s) Phosphate [Mass/volume] in Serum or Plasma 2.3 mg/dL 2.5-4.5 [facility] ID Date Data Source [id number] 06/14/2019 08:00:16 AM [facility] Value Range Interpretation Code Description Data Tania rce(s) Supporting Document(s) Glucose [Mass/volume] in Capillary blood by Glucometer 120 mg/dL 70- 140 [facility] ID Date Data Source [id number] 06/13/2019 09:06:54 PM [facility] Name Value Range Interpretation Code Description Data Tania rce(s) Supporting Document(s) Glucose [Mass/volume] in Capillary blood by Glucometer 170 mg/dL 70- 140 [facility] ID Date Data Source [id number] 06/13/2019 04:29:52 PM [facility] Name Value Range Interpretation Code Description Data Tania rce(s) Supporting Document(s) Glucose [Mass/volume] in Capillary blood by Glucometer 80 mg/dL 70- 140 [facility] ID Date Data Source [id number] 06/13/2019 01:30:35 PM [facility] Value Range Interpretation Code Description Data Tania rce(s) Supporting Document(s) ED Provider Note [facility] RNAMSm0gQbRINlZs58/OQBdzQBGij3ChTDvoVWz2FVmwPKAgB7NhENG3pZ5sVIP3BAtLTxLfZQqlZcM5 lbm MdEkxJDzRvZPDxSofCZyXaVDrtEcmpcTBiCJ7MvWT2XYNgB79tDMIdQRBtF3YrYVD9BAL+Mr0KZMKvvS EoGB7UFxuC4Q6isyy4Jg5K3w9GRxYvAn4HiBYd5TXuCOOWE5MLmJl0yigXDVfAPYIgeV9j76qvFd1SCt XuGlec4kOxBiI0Td97zIOdzOLacw/QTMO3thZklb+/ RomrRlfqH5+p22ae+5AR5OmBRHp7IxlYOJodp2nzfqgigI8933vXbdbNumrFJt190WenFjVTo/6fL9Tg Y1WhD9tLskOM1T2JvrpjumDFHYwC00YzJhF66FwBHGOMBvY+zQ6Pefvcd1ZzhZm4nK+gePjwl8+BkWh7 MgA9qX1ncGp0VMmQOdo6nZJJVBnvL96x9CWBoazh4E kOwpC5G9ks2HSuT4xPrHBkd8jP+V9o/5Cu4DGTiHhm6bZegstRN7hZ4eRb2JmF4aG8apx3y32qRp4n8e bg1um6isgNoY0LmKvne/tdnOW8cOiISoB4fQLMScYbRHlC49W/q3TsyZ2LaIx5ETB8DJ5IwX55wkbjkn fmQCHPmEdwWhCV12/XzjJuQaNCNvclfwZymcH9j3E0 clKFV7hYGPDQh8VKIFYAyHtiqrPEINqgR82QISDvnVI+swdBEWaIUevmFLV4lJoCP/PdpDAeo9aBJANd QlJCeqNuezcsshEdiGX1KFNiWYDPy+TmiLMez5bNrhLPh6nNlDpUxDLq5rUudbYKjw5qBrRFNOizcayi +5sPfnUtk3ranHfuwtEbtGGpMhsaxTJMihM9hL99go wANnQ64YeL7PBHdZi1tAhCsdmTsMdGmG55iq/M9a7Jp0Mu++tff3q7dUlyk1UjDSpK8ePpnZ6i3Ht9FY 1N52m/31jcIwXgZktUtRGNn7tp3TDikOptbvg+jeXWKx3XvFlA492zqbgnhHh70Rswz+ztDMHp5O+ADIN [file] ID Date Data Source [id number] 06/13/2019 11:55:19 AM [facility] Name Value Range Interpretation Code Description Data Tania rce(s) Supporting Document(s) Glucose [Mass/volume] in Capillary blood by Glucometer 133 mg/dL 70- 140 [facility] ID Date Data Source [id number] 06/13/2019 10:39:35 AM [facility] Name Value Range Interpretation Code Description Data Tania rce(s) Supporting Document(s) Leukocytes [#/volume] in Blood by Automated count 9.0 10*3/uL 4-10 [facility] Erythrocytes [#/volume] in Blood by Automated count 2.86 10*6/uL 4.6- 6.1 [facility] Hemoglobin [Mass/volume] in Blood 8.9 g/dL 13.5-18 [facility] Hematocrit [Volume Fraction] of Blood by Automated count 27.1 % 4 1-53 [facility] Erythrocyte mean corpuscular volume [Entitic volume] by Auto mated count 94.7 fL 80-96 [facility] Erythrocyte mean corpuscular hemoglobin [Entitic mass] by Automated count 31.1 pg 27-33 [facility] Erythrocyte mean corpuscular hemoglobin concentration [Mass/volume] by Automated count 32.8 g/dL 32.0-36.0 [facility] width [Ratio] by Automated count 16.4 % 11.5-14.5 [facility] Platelets [#/volume] in Blood by Automated count 289 10*3/uL 150-400 [facility] Differential cell count method - Blood [facility] Neutrophils/100 leukocytes in Blood by Automated count 85 % [facility] Lymphocytes/100 leukocytes in Blood by Automated count 9 % [facility] Monocytes/100 leukocytes in Blood by Automated count 5 % [facility] Eosinophils/100 leukocytes in Blood by Automated count 1 % [facility] Basophils/100 leukocytes in Blood by Automated count 0 % [facility] Neutrophils [#/volume] in Blood by Automated count 7.63 10*3/uL 1.8-7 .0 [facility] Lymphocytes [#/volume] in Blood by Automated count 0.80 10*3/uL 1.2-4 .0 [facility] Monocytes [#/volume] in Blood by Automated count 0.46 10*3/uL 0-0.8 [facility] Eosinophils [#/volume] in Blood by Automated count 0.11 10*3/uL 0-0.5 [facility] Basophils [#/volume] in Blood by Automated count 0.04 10*3/uL 0-0.2 [facility] Nucleated erythrocytes/100 leukocytes [Ratio] in Blood by Automated count 0 /100{WBCs} 0-0 [facility] ID Date Data Source [id number] 06/13/2019 11:11:53 AM EST [facility] Name Value Range Interpretation Code Description Data Tania rce(s) Supporting Document(s) Bicarbonate [Moles/volume] in Serum 23 mmol/L 22-29 [facility] Chloride [Moles/volume] in Serum or Plasma 103 mmol/L 98-107 [facility] Creatinine [Mass/volume] in Serum or Plasma 1.03 mg/dL 0.70-1.20 [facility] Glucose [Mass/volume] in Serum or Plasma 214 mg/dL 70-140 [facility] Potassium [Moles/volume] in Serum or Plasma 3.9 mmol/L 3.4-5.1 [facility] Sodium [Moles/volume] in Serum or Plasma 138 mmol/L 136-145 [facility] Urea nitrogen [Mass/volume] in Serum or Plasma 16 mg/dL 8-23 [facility] Anion gap 3 in Serum or Plasma 12 mmol/L 8-15 [facility] Osmolality of Serum or Plasma by calculation 294 mosm/kg 275-300 [facility] Creatinine/Urea nitrogen [Mass Ratio] in Serum or Plasma 16 [facility] Calcium [Mass/volume] in Serum or Plasma 8.5 mg/dL 8.8-10.2 [facility] Glomerular filtration rate/1.73 sq M pre dicted among non-blacks [Volume Rate/Area] in Serum or Plasma by Creatinine-based formula (MDRD) >6 0 [facility] Glomerular filtration rate/1.73 sq M pre dicted among blacks [Volume Rate/Area] in Serum or Plasma by Creatinine-based formula (MDRD) >60 [facility] ID Date Data Source [id number] 06/13/2019 11:11:53 AM [facility] Value Range Interpretation Code Description Data Tania rce(s) Supporting Document(s) Magnesium [Mass/volume] in Serum or Plasma 1.7 mg/dL 1.6-2.4 [facility] ID Date Data Source [id number] 06/13/2019 11:11:53 AM [facility] Value Range Interpretation Code Description Data Tania rce(s) Supporting Document(s) Phosphate [Mass/volume] in Serum or Plasma 1.9 mg/dL 2.5-4.5 [facility] ID Date Data Source [id number] 06/13/2019 07:32:48 AM [facility] Value Range Interpretation Code Description Data Tania rce(s) Supporting Document(s) [facility] UURBHo1oHbNADrZm12/QKBpxEUSil9ByCCssRBb9PRidMDRsS6BrQVM0yL3iABW9LDsZQeRyKCyzWtX0 lbm HsZajGPaGeQTWmMfiUQmQfDZqdAquoaOEqIW0TlVL0XNFdG32nRVHzOKTcD1GkSDP4WPS+Dn2CCDZptX KlUS6VCrrV2Gscbap3MQ/vTP+HnXamE8/YcJLuQ+c3/MI1xpCR89cEfm4YZMBxIegLyH9sJ32KaKozTw nNmvIOOmdO3vz0Q5aZMdB/2gimupw1EyO/lz+DUEJv DD//JDtdWx9ojR7FURuXoSPX3CvENaI+RMXMldegNsm70T8C9FP592HY0AcU8m/9lRoih4GUfAIHSvsV 568snS1gH9BgrNYY7GWVabFrcsG1sw4Mkh3tfdvym5rAtSoQmxhzk0d7FOw8FhLtqvk3Sd22oXlZFGW1 GCmNeKnDhKuoOCX7n4JwQml2fnuR86tcmrA5RSnQYz OunFDrAlxxydFLLGA8jTm383cWnvwaOWyfJ0XKIEtX0TCUycEfQLvqYHk/2K0FGAZ4x6OPSJWMeKtVHm VD/izlBUrm/gApzJX3rOCq4STHEa6MkCn4t7ci8NhrYOw1yiDanC2P9aM+Gk1XBzf+wYZ2pj88CuPGaf 9i220VArwxfwyymzM/j29hEnjCMN5p5hS6m7kU44z7 0wsFtIH1jREkt56UTOsf7YYUEnn0bzM+NB40rhR9TH2iL/1+Mr0j0vhPrXpKeyXfb0B9yQXJeAdUGwfb Jayce/bWM10TwHDh5LKP/E8FPPgag6ymGlfkHXowzhKoJwaCkSBNjGqGqB4xrc0My+WuMqbBnF4N2RcP0c [file] ZcNk8xHHNWMq1+JPnyqURdnQbvLQGQGxnnCcUDKfLlLU0XPXv= ID Date Data Source [id number] 06/13/2019 08:00:08 AM [facility] Name Value Range Interpretation Code Description Data Tania rce(s) Supporting Document(s) Glucose [Mass/volume] in Capillary blood by Glucometer 145 mg/dL 70- 140 [facility] ID Date Data Source [id number] 06/12/2019 09:57:10 PM [facility] Value Range Interpretation Code Description Data Tania rce(s) Supporting Document(s) Glucose [Mass/volume] in Capillary blood by Glucometer 177 mg/dL 70- 140 [facility] ID Date Data Source [id number] 06/12/2019 08:22:25 PM [facility] Value Range Interpretation Code Description Data Tania rce(s) Supporting Document(s) [facility] WWWVPu2fJaGUSmZg54/EHEkrQPJpf7CwYKsmIRj7JBhtMSZuA1MvHGV4iD8xAOE9DNuOIrRgZWajIxP9 [facility] [file] fXVq3173+[employer]/5hAIAPf43xcVw5Ysaarji7WCf2FAlOldrxBav5VyrynrLu3+KKrhZPvXpPA/dTRv3OXY [file] HeMHKcAGJdBRKXMQlnZE9NHO6voyU3LE4KyQLmAUEiREIxqPGfOUg9E78irSIeIGxzQL4PBXU+Sammy+Pg 5YCXNeXLBxHFCwRiQvIQZDBuZbR3GwR8AJa4WeG0AkXA90eEbovbXiXNqeYI0PBT7xTIVnMMDOJS6XaC TenQ9jzyS4VULdOUMKTaPiT36ntYGhIJWvJKQ6RQCo Ji3RFUAqP0VeiqRfgOmmbjFqIWRyQDUCSF6GIGwkfsQqxMPfoLuwFZ91xBucGJ4UWf6BYxEtLX1brs5U eXOwBa5ZHFU6ZL0WPYMdPPBfOEYcVSC8LDOpJiMqUMgsVBPiVVQxRDP7ISXjMUPtTF0AMrDlNNPkAKf8 QBHlDWWqDKWvcs2ESGYpMEU5UBW4XYBdGADrIEFiTE ujGUXaITEsGWJ1AIOjYMKmJH5IFaKjELNcYIB3GNdrITGcGVKuum3NUGXgCPEuEAW2YwOySLOpLUGdLW zqKHEsTAJ1GHIeYZHfYAUcGJ6BXtEpQEAvDKizHDemUTZrUZPllh8HUDEpIMKdKNXqRiMfQXMnNOEePK mxEPNkLUMjJhE3OJFqDIIzNM1JXbWsYEApKVF4AaGu OZZtYXUwun6OINLrDSMmUaHpKyXyFNXzTSUkRGqkCOWiMBL5RZTmIBGjHJNbTB8URlSjQZJpKYJ0Luxv DKEiCSSkvw2LCAFeLIPkMPuiOYZbILEuWJGdOEgsJYCaQKE3LLOuFXJjJVKwSP6PNbInVDRaZxZcHXDh LUBzHTIymg3AOUYbYGU7RIN6GdGnXGLzSLJiNJivVZ YwARHuNOp9HUCjETOmIS8IOhFhFXMpOpSgUVOaCCZhRZTkgl0KKYEnAHI4SMdhIvOxRHGtDUSxMJtqDP UhVXHwRDt7GYXgCNSuYM4HAuOcLWErZrKnUMUvYIUaZKVgzl2XJUSiITP7DEUjVaKvENTxWTRsEXgcDU TbDQXtAudvQJCtABQwNX9QXdHwEFCsDxM2VVdhBDDp ZYWibd4ZICQhDLH0NKxvBfOqFGQhAGHqYGzoTRXvOXYvCFk4TJQrKXChQX3QHeEkGZQuQgRfWKPqFTBg CAZcdv1UEKPdRPM9AgYfYiCdENGdCLKtPNdxCYZsSCZxIczfNOHmIBIdRM9DCsHaWLFfZiB1QXLuVTUn NZTsgs5LONPeKWLqVlf9DoRmIFRwSTDcUNchKYGzCM K7FUonWNFdUAEvDN5ZFmNfZTSaPrc8PLObIXIdYULews9HCXUzVLZySFO6XAOpMDCxROXoRNfuDHXaCF W4JfSxLNXoXSBjPP9MPaIaPKSdVpGhCODnJUZaJZRiaq3JILOzVANdTHL4DCAfVEJdEUUcUTjnILXdKJ GgQvraXJHbOMPdNS7NHqVlOLWoOpY6MuYqFPYqNQCh gj6AZDTnAQMsGQzhHVCvGVTiXXVjVEqfGYUnDRKdSOGdGXDkFCJfLZ9XRzGsJSQuBUHqHAscEZShNGLi ki1LGDErWHM4OoqeHLZfTIRhCDUnESheMQNnSRYeLEM9FBTnBGMnZC1VBaElWPDwPESsEcNyYXMaLRLt st0FOJZeFWM6VJEqQPIjZKQqOKAvFHvpJSLeONN5Iq DcXNWsLBRoLF1SExTfDLYoISE1NUFtMNXaTRTqtv7LNBAtUTD2ELYiRUZjORAwNUMuRLthMOPsWSB6JE AfMTFwKLUuEO2FTaPsINBxBVnmMYvoTQCxNXEswz5DAPYhUVC5BBy5QJLgGVBiIMXrYZwaOUVqTEJhKh WsXIJrWIOtBD8WQpAyODEpEfK4DHDzXBIhPZMgyq1C DVLxAKJ0HzLaRoBaVFYgFGKoBEh2vuXotMExXPm6ZZ5JZ7TwfxIsWWwPVm2Tt891NVY4AETbDa7JE7hw Hl4wDGLyVNVIAn2AQDw7JGFzNzxjAOu0BQaqJOYcMcdmQWdkIne2QKN3IZCnLVM+APbjUfO2PKL2DHc4 TKU2WlT8MOB9LILnJLZ1HRv6UyZ3Qr1bOIRGFb6+EIqqmCRrfWxkMOIYLxIkXkfbHZavLGIXZf5N ID Date Data Source [id number] 06/12/2019 04:32:47 PM EST [facility] Name Value Range Interpretation Code Description Data Tania rce(s) Supporting Document(s) Glucose [Mass/volume] in Capillary blood by Glucometer 126 mg/dL 70- 140 [facility] Procedure Social History Code Duration Value Status Description Data Source(s ) Smoking 08/05/2020 12:00:00 AM EST Never Smoker completed Never S moker eCW1 ([facility]) Smoking 08/05/2020 12:00:00 AM EST Never Smoker completed Never S moker eCW1 ([facility]) Smoking 07/16/2020 12:00:00 AM EST Never Smoker completed Never S moker eCW1 ([facility]) Smoking 06/27/2020 12:00:00 AM EST Never Smoker completed Never S moker eCW1 ([facility]) Smoking 06/20/2020 12:00:00 AM EST Never Smoker completed Never S moker eCW1 ([facility]) Smoking 05/20/2020 12:00:00 AM EST Never Smoker completed Never S moker eCW1 ([facility]) Smoking 05/20/2020 12:00:00 AM EST Never Smoker completed Never S moker eCW1 ([facility]) Smoking 05/20/2020 12:00:00 AM EST Never Smoker completed Never S moker eCW1 ([facility]) Smoking 05/20/2020 12:00:00 AM EST Never Smoker completed Never S moker eCW1 ([facility]) Smoking 04/05/2020 12:00:00 AM EDT Never Smoker completed Never S moker eCW1 ([facility]) Smoking 03/26/2020 12:00:00 AM EDT Never Smoker completed Never S moker eCW1 ([facility]) Smoking 03/26/2020 12:00:00 AM EDT Never Smoker completed Never S moker eCW1 ([facility]) Alcohol intake 03/24/2020 12:00:00 AM EDT Ex-drinker (finding) comp leted Ex- drinker (finding) [facility] Tobacco use and exposure 03/24/2020 12:00:00 AM EDT Never used co mpleted Never used [facility] Smoking 03/24/2020 12:00:00 AM EDT Never smoker completed Never s [facility] Smoking 01/15/2020 12:00:00 AM EDT Patient is a former smoker completed Patient is a former smoker [facility] ([facility]) Smoking 01/09/2020 12:00:00 AM EDT Never Smoker completed Never S moker eCW1 ([facility]) Smoking 01/09/2020 12:00:00 AM EDT Never Smoker completed Never S moker eCW1 ([facility]) Smoking 12/08/2019 12:00:00 AM EDT Never Smoker completed Never S moker eCW1 ([facility]) Smoking 12/08/2019 12:00:00 AM EDT Never Smoker completed Never S moker eCW1 ([facility]) Smoking 12/08/2019 12:00:00 AM EDT Never Smoker completed Never S moker eCW1 ([facility]) Smoking 12/08/2019 12:00:00 AM EDT Never Smoker completed Never S moker eCW1 ([facility]) Smoking 12/08/2019 12:00:00 AM EDT Never Smoker completed Never S moker eCW1 ([facility]) Smoking 11/16/2019 12:00:00 AM EDT Never Smoker completed Never [facility] eCW1 ([facility]) Alcohol intake 09/24/2019 12:00:00 AM EDT Ex-drinker (finding) comp leted Ex- drinker (finding) [facility] Smoking 09/24/2019 12:00:00 AM EDT Never smoker completed Never [facility] Alcohol intake 07/30/2019 12:00:00 AM EST Ex-drinker (finding) comp leted Ex- drinker (finding) [facility] Smoking 07/30/2019 12:00:00 AM EST Never smoker completed Never [facility] Alcohol intake 07/24/2019 12:00:00 AM EST Ex-drinker (finding) comp leted Ex- drinker (finding) [facility] Smoking 07/24/2019 12:00:00 AM EST Never smoker completed Never [facility] Alcohol intake 07/10/2019 12:00:00 AM EST Ex-drinker (finding) comp leted Ex- drinker (finding) [facility] Smoking 07/10/2019 12:00:00 AM EST Never smoker completed Never [facility] Alcohol intake 06/26/2019 12:00:00 AM EST Ex-drinker (finding) comp leted Ex- drinker (finding) [facility] Smoking 06/26/2019 12:00:00 AM EST Never smoker completed Never [facility] Vital Signs ID Date Data Source UNK Name Value Range Interpretation Code Description Data Source(s) Diastolic blood pressure 90 mm[Hg] 90 mm[Hg] eCW1 ([facility]) Systolic blood pressure 175 mm[Hg] 175 mm[Hg] e CW1 ([facility]) Body temperature 95.9 [degF] 95.9 [degF] eCW1 ( [facility]) Respiratory rate 20 /min 20 /min eCW1 ([facility]) Heart rate 78 /min 78 /min eCW1 ([facility]) Body mass index (BMI) [Ratio] 27.06 kg/m2 27.06 kg/m2 eCW1 ([facility]) Body height 68 [in_i] 68 [in_i] eCW1 ([facility]) Body weight 178 [lb_av] 178 [lb_av] eCW1 ([facility]) Diastolic blood pressure 74 mm[Hg] 74 mm[Hg] eCW1 ([facility]) Systolic blood pressure 150 mm[Hg] 150 mm[Hg] e CW1 ([facility]) Respiratory rate 18 /min 18 /min eCW1 ([facility]) Heart rate 70 /min 70 /min eCW1 ([facility]) Body mass index (BMI) [Ratio] 26.30 kg/m2 26.30 kg/m2 W1 ([facility]) Body height 68 [in_i] 68 [in_i] eCW1 ([facility]) Body weight 173 [lb_av] 173 [lb_av] eCW1 ([facility]) Diastolic blood pressure 77 mm[Hg] 77 mm[Hg] eCW1 ([facility]) Systolic blood pressure 185 mm[Hg] 185 mm[Hg] e CW1 ([facility]) Body temperature 97.3 [degF] 97.3 [degF] eCW1 ( [facility]) Respiratory rate 18 /min 18 /min eCW1 ([facility]) Heart rate 70 /min 70 /min eCW1 ([facility]) Body mass index (BMI) [Ratio] 26.30 kg/m2 26.30 kg/m2 eCW1 ([facility]) Body height 68 [in_i] 68 [in_i] eCW1 ([facility]) Body weight 173 [lb_av] 173 [lb_av] eCW1 ([facility]) Diastolic blood pressure 85 mm[Hg] 85 mm[Hg] eCW1 ([facility]) Systolic blood pressure 167 mm[Hg] 167 mm[Hg] e CW1 ([facility]) Body temperature 97.9 [degF] 97.9 [degF] eCW1 ( [facility]) Respiratory rate 18 /min 18 /min eCW1 ([facility]) Heart rate 78 /min 78 /min eCW1 ([facility]) Body mass index (BMI) [Ratio] 26.15 kg/m2 26.15 kg/m2 eCW1 ([facility]) Body height 68 [in_i] 68 [in_i] eCW1 ([facility]) Body weight 172 [lb_av] 172 [lb_av] eCW1 ([facility]) Diastolic blood pressure 74 mm[Hg] 74 mm[Hg] eCW1 ([facility]) Systolic blood pressure 152 mm[Hg] 152 mm[Hg] e CW1 ([facility]) Body temperature 96.6 [degF] 96.6 [degF] eCW1 ( [facility]) Respiratory rate 20 /min 20 /min eCW1 ([facility]) Heart rate 67 /min 67 /min eCW1 ([facility]) Body mass index (BMI) [Ratio] 25.85 kg/m2 25.85 kg/m2 eCW1 ([facility]) Body height 68 [in_i] 68 [in_i] eCW1 ([facility]) Body weight 170 [lb_av] 170 [lb_av] eCW1 ([facility]) Diastolic blood pressure 120 mm[Hg] 120 mm[Hg] eCW1 ([facility]) Systolic blood pressure 210 mm[Hg] 210 mm[Hg] e CW1 ([facility]) Body temperature 96.8 [degF] 96.8 [degF] eCW1 ( [facility]) Respiratory rate 20 /min 20 /min eCW1 ([facility]) Heart rate 91 /min 91 /min eCW1 ([facility]) Body mass index (BMI) [Ratio] 25.69 kg/m2 25.69 kg/m2 eCW1 ([facility]) Body height 68 [in_i] 68 [in_i] eCW1 ([facility]) Body weight 169 [lb_av] 169 [lb_av] eCW1 ([facility]) Diastolic blood pressure 75 mm[Hg] 75 mm[Hg] eCW1 ([facility]) Systolic blood pressure 153 mm[Hg] 153 mm[Hg] e CW1 ([facility]) Body temperature 98.3 [degF] 98.3 [degF] eCW1 ( [facility]) Respiratory rate 18 /min 18 /min eCW1 ([facility]) Heart rate 82 /min 82 /min eCW1 ([facility]) Body mass index (BMI) [Ratio] 25.54 kg/m2 25.54 kg/m2 eCW1 ([facility]) Body height 68 [in_i] 68 [in_i] eCW1 ([facility]) Body weight 168 [lb_av] 168 [lb_av] eCW1 ([facility]) [place] body weight 166 [lb_av] 166 [lb_av] MEDEN T ([facility], ) Body mass index (BMI) [Ratio] 24.5 kg/m2 24.5 k g/m2 MEDENT ([facility], ) Body weight 171.00 [lb_av] 171.00 [lb_av] MEDEN T ([facility], ) Body height 70 [in_i] 70 [in_i] MEDENT ([facility], ) 5'10" Respiratory rate 12 /min 12 /min MEDENT ( [facility]) Body weight 78.076 kg 78.076 [facility] Body mass index (BMI) [Ratio] 24.7 kg/m2 24.7 k g/m2 [facility] ([facility], ) Body weight 172.12 [lb_av] 172.12 [lb_av] MEDEN T ([facility], ) Body height 70 [in_i] 70 [in_i] [facility], [facility] 5'10" Diastolic blood pressure 73 mm[Hg] 73 mm[Hg] MEDENT ([facility]) Systolic blood pressure 152 mm[Hg] 152 mm[Hg] [facility] Body weight 77.736 kg 77.736 kg [facility] ([facility]) Body mass index (BMI) [Ratio] 24.6 kg/m2 24.6 k g/m2 [facility] ([facility]) Body weight 171.38 [lb_av] 171.38 [lb_av] MEDEN T ([facility]) Body height 70 [in_i] 70 [in_i] [facility] ([facility]) 5'10" Diastolic blood pressure 82 mm[Hg] 82 mm[Hg] [facility] ([facility]) Systolic blood pressure 142 mm[Hg] 142 mm[Hg] M [facility] ([facility]) Diastolic blood pressure mm[Hg] eCW1 ([facility]) Systolic blood pressure 142 mm[Hg] 142 mm[Hg] e CW1 ([facility]) Body temperature 98.2 [degF] 98.2 [degF] eCW1 ( [facility]) Respiratory rate 17 /min 17 /min eCW1 ([facility]) Heart rate 65 /min 65 /min W1 ([facility]) Body mass index (BMI) [Ratio] 25.54 kg/m2 25.54 kg/m2 [facility] ([facility]) Body height 68 [in_i] 68 [in_i] eCW1 ([facility]) Body weight 168 [lb_av] 168 [lb_av] eCW1 ([facility]) [place] body weight 166 [lb_av] 166 [lb_av] MEDEN T ([facility]) Body mass index (BMI) [Ratio] 24.5 kg/m2 24.5 k g/m2 [facility] ([facility]) Body weight 171.00 [lb_av] 171.00 [lb_av] MEDEN T ([facility]) Body height 70 [in_i] 70 [in_i] [facility] 5'10" Respiratory rate 12 /min 12 /min MEDENT ( [facility]) Heart rate 64 /min 64 /min MEDENT ([facility]) Diastolic blood pressure 50 mm[Hg] 50 mm[Hg] MEDENT ([facility]) Systolic blood pressure 140 mm[Hg] 140 mm[Hg] M EDENT ([facility], ) Diastolic blood pressure mm[Hg] eCW1 ([facility]) Systolic blood pressure 122 mm[Hg] 122 mm[Hg] e CW1 ([facility]) Body temperature 97.7 [degF] 97.7 [degF] eCW1 ( [facility]) Respiratory rate 18 /min 18 /min eCW1 ([facility]) Heart rate 65 /min 65 /min eCW1 ([facility]) Body mass index (BMI) [Ratio] 26.45 kg/m2 26.45 kg/m2 eCW1 ([facility]) Body height 68 [in_us] 68 [in_us] eCW1 ([facility]) Body weight Measured 174 [lb_av] 174 [lb_av] eC W1 ([facility]) Diastolic blood pressure 78 mm[Hg] 78 mm[Hg] eCW1 ([facility]) Systolic blood pressure 132 mm[Hg] 132 mm[Hg] e CW1 ([facility]) Body temperature 97.5 [degF] 97.5 [degF] eCW1 ( [facility]) Respiratory rate 18 /min 18 /min eCW1 ([facility]) Heart rate 96 /min 96 /min eCW1 ([facility]) Body mass index (BMI) [Ratio] 22.04 kg/m2 22.04 kg/m2 eCW1 ([facility]) Body height 68 [in_us] 68 [in_us] eCW1 ([facility]) Body weight Measured 145 [lb_av] 145 [lb_av] eC W1 ([facility]) Deprecated Oxygen saturation in Capillary blood by Oximetry 99 % 99 % eCW1 ([facility]) Respiratory rate 16 /min 16 /min eCW1 ([facility]) Heart rate 89 /min 89 /min eCW1 ([facility]) Body temperature 97.9 [degF] 97.9 [degF] eCW1 ( [facility]) Body mass index (BMI) [Ratio] 24.08 kg/m2 24.08 kg/m2 eCW1 ([facility]) Body weight Measured 158.4 [lb_av] 158.4 [lb_av ] eCW1 ([facility]) Body height 68 [in_us] 68 [in_us] eCW1 ([facility]) ID Date Data Source [id number] 03/24/2020 07:15:41 AM T [facility] Name Value Range Interpretation Code Description Data Source(s) WEIGHT RECORDED 167 lb 167 lb [facility] Body height Measured 66 in 66 in [facility] ID Date Data Source [id number] 06/26/2019 08:43:26 AM [facility] Value Range Interpretation Code Description Data Source(s) WEIGHT RECORDED 173 lb 173 lb [facility] Body height Measured 70 in 70 in [facility] ID Date Data Source [id number] 08/07/2019 07:54:51 AM [facility] Value Range Interpretation Code Description Data Source(s) WEIGHT RECORDED 173 lb 173 lb [facility] Body height Measured 70 in 70 in [facility] Patient Treatment Plan of Care Planned Activity Planned Date Details Description Data Source (s) Sulfamethoxazole 800 MG / Trimethoprim 160 MG Oral Tab let [Bactrim] 04/05/2020 12:00:00 AM EDT eCW1 ([facility]) Finasteride 5 MG Oral Tablet 03/07/2020 12:00:00 AM [facility] Finasteride 5 MG Oral Tablet [Proscar] 01/09/2020 12:00:00 AM EDT eCW1 ([facility]) Finasteride 5 MG Oral Tablet [Proscar] 01/09/2020 12:00:00 AM EDT [facility] ([facility]) atorvastatin 40 MG Oral Tablet 12/25/2019 12:00:00 AM [facility] apixaban 2.5 MG Oral Tablet [Eliquis] 12/20/2019 12:00:00 AM [facility] Amlodipine 10 MG Oral Tablet 12/18/2019 12:00:00 AM [facility] Cephalexin 250 MG 12/15/2019 01:00:00 AM EDT [facility]) MetFORMIN HCl 1000 MG 11/26/2019 01:00:00 AM EDT [facility] ([facility]) Tamsulosin HCl 0.4 MG 11/26/2019 01:00:00 AM EDT [facility]) Atorvastatin Calcium 40 MG 11/26/2019 01:00:00 AM EDT [facility] ([facility]) Pravastatin Sodium 20 MG 11/26/2019 01:00:00 AM EDT [facility]) Losartan Potassium-HCTZ 100-12.5 MG 11/26/2019 01:00:00 AM EDT [facility] ([facility]) Iron (Ferrous Sulfate) 142 (45 Fe) MG 11/26/2019 01:00:00 AM EDT [facility] ([facility]) Omeprazole 20 MG 11/26/2019 01:00:00 AM EDT [facility] ([facility]) Daily Multivitamin 11/26/2019 01:00:00 AM T [facility]) B12 Folate 800-800 MCG 11/26/2019 01:00:00 AM EDT [facility]) Insulin Detemir 100 UNIT/ML 11/26/2019 01:00:00 AM EDT [facility]) Eliquis 2.5 MG 11/26/2019 01:00:00 AM EDT [facility]) AmLODIPine Besylate 10 MG 11/22/2019 01:00:00 AM EDT [facility]) Cephalexin 500 MG Oral Capsule [Keflex] 08/23/2019 12:00:00 AM [facility] eCW1 ([facility]) Tamsulosin hydrochloride 0.4 MG Oral Capsule 07/17/2019 12:00:00 AM [facility] Misc. Devices (DURABLE MEDICAL EQUIPMENT SEE SIG) XX M [facility] 07/03/2019 12:00:00 AM [facility] ospital Ibuprofen 200 MG 06/26/2019 12:00:00 [facility]. Devices (DURABLE MEDICAL EQUIPMENT SEE SIG) XX M [facility] 06/23/2019 12:00:00 AM [facility]spital Tylenol Extra Strength 500 MG 06/20/2019 12:00:00 AM EST [employer] ([facility]) Tamsulosin HCl 0.4 MG 06/16/2019 12:00:00 AM EST [facility] Omeprazole 20 MG 06/16/2019 12:00:00 AM EST [facility] Pravastatin Sodium 20 MG 06/16/2019 12:00:00 AM [facility] Ferrous Sulfate 325 (65 Fe) MG 06/16/2019 12:00:00 [facility] Losartan Potassium 100 MG 06/16/2019 12:00:00 AM [facility] MetFORMIN HCl 1000 MG 06/16/2019 12:00:00 AM [facility] Senna 8.6 MG 06/16/2019 12:00:00 AM EST [facility] ([facility]) Heparin Lock Flush 100 UNIT/ML 06/16/2019 12:00:00 AM [facility] Normal Saline Flush 0.9 % 06/16/2019 12:00:00 AM EST [facility] CefTRIAXone Sodium 2 GM 06/16/2019 12:00:00 AM EST [employer] ([facility]) Vancomycin HCl 1.5 GM 06/16/2019 12:00:00 AM [facility] Lantus SoloStar 100 UNIT/ML 06/16/2019 12:00:00 AM [facility] Normal Saline Flush 0.9 % Intravenous Solution 06/16/2019 12:00:00 AM [facility] 3 ML heparin sodium, porcine 100 UNT/ML Prefilled Syri nge 06/16/2019 12:00:00 AM [facility]ital Tamsulosin hydrochloride 0.4 MG Oral Capsule 06/16/2019 12:00:00 AM [facility] POLYETHYLENE GLYCOL 3350 142 MG/ML Oral Solution 06/16/2019 12:00:0 0 AM [facility] Ceftriaxone 2000 MG Injection 06/16/2019 12:00:00 AM [facility] Vancomycin HCl 1.5 GM Intravenous Solution Reconstitut ed (VANCOCIN) 06/16/2019 12:00:00 AM [facility] Tamsulosin hydrochloride 0.4 MG Oral Capsule 06/16/2019 12:00:00 AM [facility] POLYETHYLENE GLYCOL 3350 142 MG/ML Oral Solution 06/16/2019 12:00:0 0 AM [facility] Tamsulosin hydrochloride 0.4 MG Oral Capsule 06/16/2019 12:00:00 AM [facility] POLYETHYLENE GLYCOL 3350 142 MG/ML Oral Solution 06/16/2019 12:00:0 0 AM [facility] sennosides, SENIOR CARE 8.6 MG Oral Tablet 06/15/2019 12:00:00 AM [facility] ferrous sulfate 325 MG Oral Tablet 06/15/2019 12:00:00 AM [facility] Vancomycin HCl 1500 MG/300ML Intravenous Solution (VAN COCIN) 06/15/2019 12:00:00 AM [facility] Ceftriaxone 2000 MG Injection 06/15/2019 12:00:00 AM [facility] Acetaminophen 325 MG Oral Tablet 06/15/2019 12:00:00 AM [facility] sennosides, SENIOR CARE 8.6 MG Oral Tablet 06/15/2019 12:00:00 AM [facility] ferrous sulfate 325 MG Oral Tablet 06/15/2019 12:00:00 AM [facility] ferrous sulfate 325 MG Oral Tablet 06/15/2019 12:00:00 AM [facility] ferrous sulfate 325 MG Oral Tablet 06/15/2019 12:00:00 AM [facility] sennosides, SENIOR CARE 8.6 MG Oral Tablet 06/15/2019 12:00:00 AM [facility] Hydralazine Hydrochloride 20 MG/ML Injectable Solution 06/14/2019 07:49:21 AM [facility] Bisacodyl 10 MG Rectal Suppository 06/13/2019 10:27:21 AM [facility] sodium chloride (preservative free) 0.9 % flush 10 mL 06/13/2019 10:26:31 AM [facility] Glucose 0.4 MG/MG Oral Gel 06/11/2019 02:11:29 PM [facility] dextrose 50 % IV solution 25 mL 06/10/2019 11:20:42 PM [facility] Glucagon 1 MG Injection 06/10/2019 11:20:42 PM [facility] Glucose 0.4 MG/MG Oral Gel 06/10/2019 11:20:42 PM [facility] Pravastatin Sodium 20 MG [facility] Acetaminophen 325 MG [facility] meloxicam 15 MG [facility] tramadol hydrochloride 50 MG [facility]
[2020-08-11 15:25] VITALS: BP 180/79
== END 2020-08-11 15:32 | disposition home or self-care (01) ==
LOC: M ED 14:19
DX: T83.091A Other mechanical complication of indwelling urethral catheter, initial encounter (principal); Y92.9 Unspecified place or not applicable; Y93.9 Activity, unspecified; E11.9 Type 2 diabetes mellitus without complications; I10 Essential (primary) hypertension; E78.5 Hyperlipidemia, unspecified; M54.30 Sciatica, unspecified side; Z79.82 Long term (current) use of aspirin; Z79.4 Long term (current) use of insulin; Z79.01 Long term (current) use of anticoagulants; Z79.899 Other long term (current) drug therapy

== ENCOUNTER → 2020-09-30 | Outpatient (CLI) | payer MEDICARE ==
--- NOTE | 2020-09-30 12:11 | REP ---
INDICATION: OCCLUSION/STENOSIS. COMPARISON: 02/13/2020. TECHNIQUE: Bilateral carotid artery duplex ultrasound. FINDINGS: Peak flow velocities: Right left Internal carotid artery 130 cm/sec 119 cm/sec Int. Carotid diastolic 17 cm/sec 15 cm/sec External carotid artery 171 cm/sec 128 cm/sec Common carotid artery 117 cm/sec 86 cm/sec ICA-CCA ratio 1.11 1.38 There is moderately heavy plaque bilaterally extending from the carotid bulbs into the internal carotid arteries and external carotid arteries bilaterally. The right and left internal carotid peak flow velocities are in the normal range indicating no significant stenosis. The left external carotid artery demonstrates normal peak flow velocity indicating less than 50% narrowing and no significant stenosis. The right external carotid artery peak flow velocity is mildly elevated compatible with 50-69% narrowing. There is antegrade flow in the vertebral arteries bilaterally. IMPRESSION: There is 50-69% stenosis of the right external carotid artery. There is no significant stenosis otherwise. There is antegrade flow in the vertebral arteries bilaterally. <Electronically signed by Driss Escobar > 09/30/20 [id number]
== END ==
LOC: M RAD 11:20
PROVIDERS: ATTEND Surgery Vascular Surgery
DX: I65.23 Occlusion and stenosis of bilateral carotid arteries (principal)

== ENCOUNTER → 2022-05-28 | Outpatient (CLI) | payer MEDICARE ==
[~2022-05-28] MED LIST changes: +LOSA100T45 PO; -LOSA100T50 PO; +OMEP-173 PO; -OMEP-218 PO; +PROHANCE 279.3MG/ML 15ML VIAL As Ordered ONE
== END ==
LOC: M RAD 12:23
PROVIDERS: ATTEND Pain Medicine Interventional Pain Medicine
DX: M96.1 Postlaminectomy syndrome, not elsewhere classified (principal)
CPT/HCPCS: 72158; A9576

== ENCOUNTER → 2022-07-20 | Outpatient (CLI) | payer MEDICARE ==
[~2022-07-20] MED LIST changes: -PROHANCE 279.3MG/ML 15ML VIAL As Ordered ONE
[2022-07-20 11:27] LABS: BASO % 0.4 % (0.0-1.0); EOS # 0.2 10^3/uL (0.0-0.5); EOS % 2.4 % (0.0-3.0); HEMATOCRIT 30.9 % (42.0-52.0); HEMOGLOBIN 10.1 g/dl (13.5-17.5); LYMPH # 1.4 10^3/uL (1.5-5.0); LYMPH % 14.9 % (24.0-44.0); MEAN CORPUSCULAR HGB CONC 32.7 g/dl (32.0-36.5); MEAN CORPUSCULAR VOLUME 94.8 fl (80.0-96.0); MONO # 0.6 10^3/uL (0.0-0.8); MONO % 6.1 % (2.0-8.0); NEUTROPHILS % 75.9 % (36.0-66.0); PLATELET COUNT, AUTOMATED 291 10^3/uL (150-450); RED BLOOD COUNT 3.26 10^6/uL (4.30-6.10); WHITE BLOOD COUNT 9.2 10^3/uL (4.0-10.0)
[2022-07-20 11:49] LABS: URIC ACID 3.2 MG/DL (3.7-9.2)
[2022-07-20 11:53] LABS: ERYTHROCYTE SEDIMENTATION RATE 77 mm/hr (0-20)
[2022-07-20 12:38] LABS: C REACTIVE PROTEIN QUANTITATIV 12.6 MG/DL (<1.0)
== END ==
LOC: M PLALAB 08:40
PROVIDERS: ATTEND Internal Medicine Infectious Disease
DX: M46.46 Discitis, unspecified, lumbar region (principal); M25.561 Pain in right knee; M17.11 Unilateral primary osteoarthritis, right knee

== ENCOUNTER 2022-08-09 06:59 | Emergency (ER) | payer MEDICARE ==
[~2022-08-09] VITALS: Ht 167.6 cm; Wt 73.2 kg
[2022-08-09] MEDS ORDERED: DOXY100C3 (07:17)
[2022-08-09] MEDS ORDERED: XARE20TA (07:17)
[2022-08-09] MEDS ORDERED: CHLO125TA (07:17)
[2022-08-09 11:49] VITALS: BP 149/72
== END 2022-08-09 11:50 | disposition home or self-care (01) ==
LOC: M ED 06:59
DX: T83.091A Other mechanical complication of indwelling urethral catheter, initial encounter (principal); E11.9 Type 2 diabetes mellitus without complications; I10 Essential (primary) hypertension; E78.5 Hyperlipidemia, unspecified; Z86.73 Personal history of transient ischemic attack (TIA), and cerebral infarction without residual deficits; Z79.02 Long term (current) use of antithrombotics/antiplatelets; Z79.811 Long term (current) use of aromatase inhibitors; Z79.899 Other long term (current) drug therapy

== ENCOUNTER → 2022-08-13 | Outpatient (CLI) | payer MEDICARE ==
[~2022-08-13] MED LIST changes: +CHLO125TA; +DOXY100C3; +XARE20TA
[2022-08-13 15:38] LABS: BASO % 0.4 % (0.0-1.0); EOS # 0.1 10^3/uL (0.0-0.5); HEMATOCRIT 30.4 % (42.0-52.0); HEMOGLOBIN 9.9 g/dl (13.5-17.5); LYMPH # 1.9 10^3/uL (1.5-5.0); LYMPH % 19.4 % (24.0-44.0); MEAN CORPUSCULAR HEMOGLOBIN 30.7 pg (27.0-33.0); MEAN CORPUSCULAR HGB CONC 32.6 g/dl (32.0-36.5); MEAN CORPUSCULAR VOLUME 94.4 fl (80.0-96.0); MONO # 0.6 10^3/uL (0.0-0.8); MONO % 6.5 % (2.0-8.0); NEUTROPHILS # 7.1 10^3/uL (1.5-8.5); NEUTROPHILS % 72.3 % (36.0-66.0); PLATELET COUNT, AUTOMATED 294 10^3/uL (150-450); RED BLOOD COUNT 3.22 10^6/uL (4.30-6.10); WHITE BLOOD COUNT 9.9 10^3/uL (4.0-10.0)
[2022-08-13 15:50] LABS: ERYTHROCYTE SEDIMENTATION RATE 99 mm/hr (0-20)
== END ==
LOC: M PLALAB 13:46
PROVIDERS: ATTEND Internal Medicine Infectious Disease
DX: A69.20 Lyme disease, unspecified (principal)

== ENCOUNTER 2022-08-31 12:12 | Inpatient (IN) | payer MEDICARE ==
[~2022-08-31] VITALS: Ht 167.6 cm; Wt 66.0 kg
[~2022-08-31 12:12] MED LIST changes: -CHLO125TA; +CHLO125TA PO; +INSU100I6 SC; -LEVE1INJ5 SC; -XARE20TA; +XARE20TA PO
[2022-08-31 13:08] LABS: BASO % 0.4 % (0.0-1.0); EOS % 0.4 % (0.0-3.0); HEMATOCRIT 34.8 % (42.0-52.0); HEMOGLOBIN 11.6 g/dl (13.5-17.5); LYMPH # 1.7 10^3/uL (1.5-5.0); LYMPH % 18.8 % (24.0-44.0); MEAN CORPUSCULAR HEMOGLOBIN 30.8 pg (27.0-33.0); MEAN CORPUSCULAR HGB CONC 33.3 g/dl (32.0-36.5); MEAN CORPUSCULAR VOLUME 92.3 fl (80.0-96.0); MONO # 0.4 10^3/uL (0.0-0.8); MONO % 4.8 % (2.0-8.0); NEUTROPHILS # 6.9 10^3/uL (1.5-8.5); NEUTROPHILS % 75.3 % (36.0-66.0); PLATELET COUNT, AUTOMATED 242 10^3/uL (150-450); RED BLOOD COUNT 3.77 10^6/uL (4.30-6.10); WHITE BLOOD COUNT 9.1 10^3/uL (4.0-10.0)
[2022-08-31] MEDS ORDERED: INSU100I38 SC (13:17)
[2022-08-31] MEDS ORDERED: INVO100T PO (13:17)
[2022-08-31] MEDS ORDERED: TRAM50TA2 PO (13:17)
[2022-08-31 13:37] LABS: INR 1.18; PROTHROMBIN TIME 15.3 SECONDS (12.5-14.5)
[2022-08-31 13:38] LABS: PARTIAL THROMBOPLASTIN TIME 28.1 SECONDS (24.8-34.2)
[2022-08-31 15:16] LABS: ALBUMIN 3.1 G/DL (3.2-5.2); BILIRUBIN,DIRECT 0.3 MG/DL (<0.4); BILIRUBIN,TOTAL 0.8 MG/DL (0.3-1.2); CREATININE FOR GFR 1.71 MG/DL (0.70-1.30); GLOMERULAR FILTRATION RATE 40.6 (>35); POTASSIUM SERUM 4.6 MMOL/L (3.5-5.1)
[2022-08-31] MEDS ORDERED: NS 1,000 ML IV SCH (15:35)
[2022-08-31] MEDS ORDERED: cefTRIAXone SOD 1 GM in D5W MINI-BAG PLUS 50 ML IV ONE (15:35)
[2022-08-31 15:43] LABS: TOTAL PROTEIN 7.1 G/DL (5.7-8.2)
[2022-08-31 16:01] LABS: CK-MB VALUE MASS 3.5 NG/ML (<3.6)
[2022-08-31 16:02] LABS: MB/CK RELATIVE INDEX 2.75 (< OR =4)
[2022-08-31 16:25] LABS: CK-MB VALUE MASS 3.4 NG/ML (<3.6); MB/CK RELATIVE INDEX 2.9 (< OR =4)
[2022-08-31 16:46] LABS: RSV AMPLIFICATION NEGATIVE (NEGATIVE)
[2022-08-31] MEDS ORDERED: MOM 30ML SUSPENSION UDC PO PRN (17:15)
[2022-08-31] MEDS ORDERED: DEXTROSE 50% 50ML SYRINGE IV PRN (17:15)
[2022-08-31] MEDS ORDERED: GLUCAGON INJ 1MG VIAL SC PRN (17:15)
[2022-08-31] MEDS ORDERED: GLUCOSE 4GM CHEW TABLET PO PRN (17:15)
[2022-08-31] MEDS: NS 2,000 ML IV SCH (17:48)
[2022-08-31] MEDS: INSULIN LISPRO (NovoLOG) PER UNIT SC SCH ×2 (18:30→21:00)
[2022-08-31] MEDS ORDERED: OYST1TAB PO (18:48)
[2022-08-31] MEDS ORDERED: ATOR1TAB21 PO (18:48)
[2022-08-31 18:52] LABS: HEPATITIS B SURFACE ANTIGEN NEGATIVE (NEGATIVE)
[2022-08-31] MEDS ORDERED: HOME MED LIST COMPLETE! XX SCH (19:00)
[2022-08-31 19:14] LABS: HEPATITIS B CORE ANTIBODY IGM NEGATIVE (NEGATIVE)
[2022-08-31 20:07] VITALS: BP 150/71
[2022-08-31 20:20] LABS: OSMOLALITY URINE 447 MOSM/KG (50-1400)
[2022-08-31 20:35] LABS: SODIUM,RANDOM URINE 38 MMOL/L
[2022-08-31] MEDS: LEVEMIR (INSULIN DETEMIR) 1 UNITS/0.01ML SC SCH (21:00)
[2022-08-31] MEDS: DOCUSATE SODIUM 100MG CAPSULE PO SCH (21:52)
[2022-09-01] VITALS: BP 136/67
[2022-09-01] MEDS: NS 2,000 ML IV SCH (02:44)
[2022-09-01 04:00] VITALS: BP 143/67
[2022-09-01 05:10] LABS: BASO % 0.5 % (0.0-1.0); EOS # 0.3 10^3/uL (0.0-0.5); EOS % 3.3 % (0.0-3.0); HEMATOCRIT 32.8 % (42.0-52.0); HEMOGLOBIN 10.9 g/dl (13.5-17.5); LYMPH # 2.2 10^3/uL (1.5-5.0); LYMPH % 26.1 % (24.0-44.0); MEAN CORPUSCULAR HEMOGLOBIN 31.2 pg (27.0-33.0); MEAN CORPUSCULAR HGB CONC 33.2 g/dl (32.0-36.5); MONO # 0.6 10^3/uL (0.0-0.8); NEUTROPHILS # 5.4 10^3/uL (1.5-8.5); PLATELET COUNT, AUTOMATED 210 10^3/uL (150-450); RED BLOOD COUNT 3.49 10^6/uL (4.30-6.10); WHITE BLOOD COUNT 8.6 10^3/uL (4.0-10.0)
[2022-09-01 05:57] LABS: ALBUMIN 2.6 G/DL (3.2-5.2); BILIRUBIN,TOTAL 0.7 MG/DL (0.3-1.2); CALCIUM LEVEL 8.4 MG/DL (8.3-10.6); CREATININE FOR GFR 1.56 MG/DL (0.70-1.30); GLOMERULAR FILTRATION RATE 45.1 (>35); POTASSIUM SERUM 4.1 MMOL/L (3.5-5.1)
[2022-09-01 07:23] LABS: HEMOGLOBIN A1c 10.6 % (4.0-6.0)
[2022-09-01 08:00] VITALS: BP 143/75
[2022-09-01] MEDS ORDERED: RIVAROXABAN 20MG TAB (XARELTO) PO SCH (08:00)
[2022-09-01] MEDS: OYSTER SHELL CALCIUM 500 MG TAB PO SCH (09:42)
[2022-09-01] MEDS: ATORVASTATIN 20 MG TAB PO SCH (09:42)
[2022-09-01] MEDS: DOCUSATE SODIUM 100MG CAPSULE PO SCH ×2 (09:42→20:10)
[2022-09-01] MEDS: FERROUS SULFATE 325MG TAB PO SCH (09:42)
[2022-09-01] MEDS: OMEPRAZOLE 20MG CAP PO SCH (09:43)
[2022-09-01] MEDS: INSULIN LISPRO (NovoLOG) PER UNIT SC SCH ×4 (09:48→20:11)
[2022-09-01 12:00] VITALS: BP 152/85
[2022-09-01 16:00] VITALS: BP 132/84
[2022-09-01] MEDS ORDERED: cefTRIAXone SOD 1 GM in D5W MINI-BAG PLUS 50 ML IV SCH (16:00)
[2022-09-01 20:00] VITALS: BP 151/66
[2022-09-01] MEDS: LEVEMIR (INSULIN DETEMIR) 1 UNITS/0.01ML SC SCH (20:11)
[2022-09-02] VITALS: BP 160/72
[2022-09-02 05:26] LABS: BASO # 0.1 10^3/uL (0.0-0.2); BASO % 0.7 % (0.0-1.0); EOS # 0.2 10^3/uL (0.0-0.5); EOS % 3.1 % (0.0-3.0); HEMATOCRIT 31.8 % (42.0-52.0); HEMOGLOBIN 10.5 g/dl (13.5-17.5); LYMPH # 1.8 10^3/uL (1.5-5.0); LYMPH % 23.6 % (24.0-44.0); MEAN CORPUSCULAR HEMOGLOBIN 31.4 pg (27.0-33.0); MEAN CORPUSCULAR VOLUME 95.2 fl (80.0-96.0); MONO # 0.5 10^3/uL (0.0-0.8); MONO % 7.1 % (2.0-8.0); NEUTROPHILS # 4.9 10^3/uL (1.5-8.5); NEUTROPHILS % 65.2 % (36.0-66.0); PLATELET COUNT, AUTOMATED 209 10^3/uL (150-450); RED BLOOD COUNT 3.34 10^6/uL (4.30-6.10); WHITE BLOOD COUNT 7.4 10^3/uL (4.0-10.0)
[2022-09-02 05:55] LABS: ALBUMIN 2.5 G/DL (3.2-5.2); BILIRUBIN,TOTAL 0.5 MG/DL (0.3-1.2); CALCIUM LEVEL 8.3 MG/DL (8.3-10.6); CREATININE FOR GFR 1.55 MG/DL (0.70-1.30); GLOMERULAR FILTRATION RATE 45.5 (>35); POTASSIUM SERUM 4.5 MMOL/L (3.5-5.1); TOTAL PROTEIN 5.9 G/DL (5.7-8.2)
[2022-09-02 07:17] VITALS: BP 146/79
[2022-09-02] MEDS: INSULIN LISPRO (NovoLOG) PER UNIT SC SCH ×2 (07:30→12:57)
[2022-09-02] MEDS: OYSTER SHELL CALCIUM 500 MG TAB PO SCH (08:44)
[2022-09-02] MEDS: DOCUSATE SODIUM 100MG CAPSULE PO SCH (08:44)
[2022-09-02] MEDS: OMEPRAZOLE 20MG CAP PO SCH (08:44)
[2022-09-02] MEDS: FERROUS SULFATE 325MG TAB PO SCH (08:44)
[2022-09-02] MEDS: ATORVASTATIN 20 MG TAB PO SCH (08:44)
[2022-09-02 12:21] VITALS: BP 147/82
[2022-09-02] MEDS ORDERED: COLA100C5 PO (14:03)
[2022-09-02] MEDS ORDERED: CEFU50TA PO (14:03)
[2022-09-02] MEDS ORDERED: ARTIDRO OS (14:07)
[2022-09-02] MEDS ORDERED: PILL CUTTER 1 EACH XX PRN (14:10)
[2022-09-02] MEDS ORDERED: cefTRIAXone SOD 1 GM in D5W MINI-BAG PLUS 50 ML IV SCH (16:00)
[2022-09-02] MEDS ORDERED: RIVAROXABAN 15MG TAB (XARELTO) PO SCH (18:00)
[2022-09-02] MEDS ORDERED: CEFUROXIME 500 MG TAB PO SCH (21:00)
== END 2022-09-02 15:45 | disposition home or self-care (01) | DRG 699 ==
LOC: M ED 12:12 → M ED INP 17:13 → M PCU 20:00
PROVIDERS: ADMIT Student in an Organized Health Care Education/Training Program; ATTEND Internal Medicine
DX: T83.511A Infection and inflammatory reaction due to indwelling urethral catheter, initial encounter (principal); N17.9 Acute kidney failure, unspecified; E87.1 Hypo-osmolality and hyponatremia; N39.0 Urinary tract infection, site not specified; 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, or unspecified chronic kidney disease; D50.9 Iron deficiency anemia, unspecified; K21.9 Gastro-esophageal reflux disease without esophagitis; I48.91 Unspecified atrial fibrillation; E78.5 Hyperlipidemia, unspecified; Z79.4 Long term (current) use of insulin; R74.01 Elevation of levels of liver transaminase levels; M48.00 Spinal stenosis, site unspecified; R53.1 Weakness; R53.83 Other fatigue; E86.0 Dehydration; Z66 Do not resuscitate; R33.9 Retention of urine, unspecified; E11.9 Type 2 diabetes mellitus without complications; B96.1 Klebsiella pneumoniae [K. pneumoniae] as the cause of diseases classified elsewhere; H11.32 Conjunctival hemorrhage, left eye; N18.9 Chronic kidney disease, unspecified; Z79.899 Other long term (current) drug therapy; Z79.01 Long term (current) use of anticoagulants; Y84.6 Urinary catheterization as the cause of abnormal reaction of the patient, or of later complication, without mention of misadventure at the time of the procedure

== ENCOUNTER → 2022-09-24 | Outpatient (CLI) | payer MEDICARE ==
[~2022-09-24] MED LIST changes: +ARTIDRO OS; +CEFU50TA PO; +COLA100C5 PO; +INSU100I38 SC; +INVO100T PO; +OYST1TAB PO; +TRAM50TA2 PO
[2022-09-24 16:13] LABS: BASO # 0.1 10^3/uL (0.0-0.2); BASO % 0.7 % (0.0-1.0); EOS # 0.2 10^3/uL (0.0-0.5); EOS % 3.2 % (0.0-3.0); HEMATOCRIT 32.7 % (42.0-52.0); HEMOGLOBIN 10.7 g/dl (13.5-17.5); LYMPH # 1.6 10^3/uL (1.5-5.0); LYMPH % 22.4 % (24.0-44.0); MEAN CORPUSCULAR HEMOGLOBIN 31.3 pg (27.0-33.0); MEAN CORPUSCULAR HGB CONC 32.7 g/dl (32.0-36.5); MEAN CORPUSCULAR VOLUME 95.6 fl (80.0-96.0); MONO # 0.4 10^3/uL (0.0-0.8); MONO % 5.8 % (2.0-8.0); NEUTROPHILS # 4.9 10^3/uL (1.5-8.5); NEUTROPHILS % 67.6 % (36.0-66.0); PLATELET COUNT, AUTOMATED 240 10^3/uL (150-450); RED BLOOD COUNT 3.42 10^6/uL (4.30-6.10); WHITE BLOOD COUNT 7.2 10^3/uL (4.0-10.0)
[2022-09-24 18:09] LABS: ERYTHROCYTE SEDIMENTATION RATE 48 mm/hr (0-20)
== END ==
LOC: M PLALAB 14:11
PROVIDERS: ATTEND Internal Medicine Infectious Disease
DX: A69.20 Lyme disease, unspecified (principal)

== ENCOUNTER → 2022-10-30 | Outpatient (CLI) | payer MEDICARE ==
[~2022-10-30] MED LIST changes: -LOSA100T45 PO; +LOSA100T46 PO
== END ==
LOC: M WUC 14:30
PROVIDERS: ATTEND Family Medicine
DX: M25.531 Pain in right wrist (principal)